=== PATIENT | male | born 1945 | race Caucasian/White ===

== ENCOUNTER 2020-03-29 10:18 | Outpatient (REF) | payer OTHER, SELFPAY ==
--- NOTE | 2020-03-29 11:22 | XR_ITS ---
EXAMINATION: XR KNEE LEFT XR KNEE RIGHT CLINICAL INFORMATION: Pain right knee. COMPARISON: None TECHNIQUE: Bilateral AP knees standing 1 view. 2 views each knee. FINDINGS: AP BILATERAL KNEE: There is a total right knee arthroplasty with prosthetic components in satisfactory alignment. There is severe loss of medial and [id number]-[id number] loss of lateral compartment joint space. There is genu valgum deformity left knee. No fracture seen. LEFT KNEE: There is severe loss of medial and patellofemoral compartment joint space and moderate lateral medial compartment joint space. There is moderate periarticular spurring patellofemoral compartment and mild anterior and posterior tibial plateau spurring. There are small loose bodies seen in this suprapatellar bursa with mild joint effusion. Multiple small loose bodies are seen along the infrapatellar joint effusion. RIGHT KNEE: There is a total right knee arthroplasty with prosthetic components in satisfactory alignment. There is moderate osteophytosis along the superior inferior patella. Small joint effusion and loose bodies seen. IMPRESSION: Severe degenerative arthritic changes medial and patellofemoral compartment left knee with multiple loose bodies in the suprapatellar and infrapatellar joint with mild joint effusion. Total right knee arthroplasty with prosthetic components in satisfactory alignment. There is degenerative patellar spurring and loose bodies. There is mild joint effusion. No visible acute fracture seen.
== END 2020-03-29 10:19 | disposition home or self-care (01) ==
LOC: HO.XRAY 10:18
PROVIDERS: PCP Internal Medicine; Referring Provider Internal Medicine; Visit Provider Orthopaedic Surgery
DX: M12.811 Other specific arthropathies, not elsewhere classified, right shoulder (principal); M17.12 Unilateral primary osteoarthritis, left knee; M25.561 Pain in right knee; Z96.651 Presence of right artificial knee joint; Z88.6 Allergy status to analgesic agent; Z88.2 Allergy status to sulfonamides; Z88.8 Allergy status to other drugs, medicaments and biological substances
CPT/HCPCS: 20610; 73560; 73565; J1100

== ENCOUNTER 2020-04-14 10:50 | Outpatient (REF) | payer OTHER, SELFPAY ==
[2020-04-14 11:52] LABS: MANUAL DIFF FLAG NO
[2020-04-14 11:54] LABS: Basophils Percent Auto 0.8 % (0-2); Eosinophils Absolute Auto 0.4 X10*3/uL (0.0-0.4); Hematocrit 39.4 % (42-52); Hemoglobin 13.1 g/dl (14.0-18.0); Imm Gran Abs Auto 0.02 X10*3/uL (0.00-0.03); Imm Gran Pct Auto 0.4 % (0.0-0.4); Lymphocytes Absolute Auto 0.8 X10*3/uL (1.2-4.9); Lymphocytes Percent Auto 16.1 % (20-40); Mean Corpuscular HGB Conc 33.2 g/dl (31.0-36.0); Mean Corpuscular Hemoglobin 30.2 pg (27.0-33.0); Mean Corpuscular Volume 90.8 fL (80-98); Mean Platelet Volume 9.8 fL (9.4-12.4); Monocytes Absolute Auto 0.6 X10*3/uL (0.1-1.2); Neutrophils Absolute Auto 3.2 X10*3/uL (2.0-8.3); Neutrophils Percent Auto 63.7 % (45-73); Platelet Count 267 X10*3/uL (160-400); Red Blood Count 4.34 X10*6/uL (4.60-5.80); Red Cell Distribution Width 11.9 % (11.0-16.0)
[2020-04-14 12:23] LABS: Alanine Aminotransferase 18 U/L (0-40); Albumin Level 3.8 g/dL (3.5-5.0); Alkaline Phosphatase 83 U/L (39-117); Anion Gap 10 (12-20); Aspartate Amino Transferase 21 U/L (5-37); Bilirubin Total 1.3 mg/dL (0.0-1.0); Blood Urea Nitrogen 11 mg/dL (9-16); Calcium 8.8 mg/dL (8.4-10.2); Carbon Dioxide 30 mmol/L (22-29); Chloride 104 mmol/L (96-108); Cholesterol 133 mg/dL; Estimated Glomerular Filt Rate > 60; Glucose Random 97 mg/dL (60-115); HDL Cholesterol 34 mg/dL; LDL Cholesterol Calculated 60 mg/dl; Potassium 4.6 mmol/l (3.3-5.1); Sodium 139 mmol/L (135-145); Total Protein 6.4 g/dL (6.5-8.0); Triglycerides 199 mg/dL
[2020-04-14 12:56] LABS: Vitamin B12 461 pg/mL (200-900)
== END 2020-04-14 10:51 | disposition home or self-care (01) ==
LOC: HO.LAB 10:50
PROVIDERS: PCP Internal Medicine; Visit Provider Internal Medicine
DX: E78.2 Mixed hyperlipidemia (principal); F51.01 Primary insomnia; R42 Dizziness and giddiness
CPT/HCPCS: 36415; 80053; 80061; 82607; 85025

== ENCOUNTER 2020-05-10 14:58 | Outpatient (REF) | payer MEDICARE, SELFPAY ==
--- NOTE | 2020-05-10 15:05 | XR_ITS ---
EXAMINATION: XR RIBS, RIGHT CLINICAL INFORMATION: Pleurodynia COMPARISON: None TECHNIQUE: 3 views of the right ribs and one view of the chest were obtained. FINDINGS: The cardiac silhouette does not appear enlarged. The thoracic aorta is slightly tortuous. Hilar and mediastinal contours are otherwise unremarkable. There is a 4 mm right pulmonary nodule. This is better seen on rib and chest x-ray. The lungs are otherwise clear. There is no pleural effusion or pneumothorax. There is a acute anterior 11th rib fracture. There are degenerative changes of the spine. XR/XR ribs RT min 3V w CXR1V IMPRESSION: Acute right anterior 11th rib fracture. 4 mm right pulmonary nodule better seen on rib x-rays.
== END 2020-05-10 14:59 | disposition home or self-care (01) ==
LOC: HO.HMGCX 14:58
PROVIDERS: PCP Internal Medicine; Visit Provider Hospitalist
DX: R07.81 Pleurodynia (principal)
CPT/HCPCS: 71101

== ENCOUNTER 2020-06-23 10:20 | Outpatient (REF) | payer OTHER, SELFPAY ==
[2020-06-23 12:19] LABS: MANUAL DIFF FLAG NO
[2020-06-23 12:26] LABS: Basophils Percent Auto 0.6 % (0-2); Eosinophils Absolute Auto 0.5 X10*3/uL (0.0-0.4); Eosinophils Percent Auto 8.5 % (0-4); Hematocrit 40.1 % (42-52); Hemoglobin 13.4 g/dl (14.0-18.0); Imm Gran Abs Auto 0.01 X10*3/uL (0.00-0.03); Imm Gran Pct Auto 0.2 % (0.0-0.4); Lymphocytes Absolute Auto 1.1 X10*3/uL (1.2-4.9); Lymphocytes Percent Auto 19.4 % (20-40); Mean Corpuscular HGB Conc 33.4 g/dl (31.0-36.0); Mean Corpuscular Hemoglobin 29.8 pg (27.0-33.0); Mean Corpuscular Volume 89.3 fL (80-98); Mean Platelet Volume 9.9 fL (9.4-12.4); Monocytes Absolute Auto 0.5 X10*3/uL (0.1-1.2); Monocytes Percent Auto 9.6 % (2-11); Neutrophils Absolute Auto 3.3 X10*3/uL (2.0-8.3); Neutrophils Percent Auto 61.7 % (45-73); Platelet Count 280 X10*3/uL (160-400); Red Blood Count 4.49 X10*6/uL (4.60-5.80); Red Cell Distribution Width 11.9 % (11.0-16.0); White Blood Count 5.4 X10*3/uL (4.8-10.8)
[2020-06-23 13:10] LABS: Alanine Aminotransferase 20 U/L (0-40); Albumin Level 4.1 g/dL (3.5-5.0); Alkaline Phosphatase 91 U/L (39-117); Anion Gap 13 (12-20); Aspartate Amino Transferase 20 U/L (5-37); Bilirubin Total 1.2 mg/dL (0.0-1.0); Blood Urea Nitrogen 14 mg/dL (9-16); Carbon Dioxide 30 mmol/L (22-29); Chloride 103 mmol/L (96-108); Cholesterol 123 mg/dL; Estimated Glomerular Filt Rate > 60; Glucose Fasting 96 mg/dL (60-99); HDL Cholesterol 38 mg/dL; LDL Cholesterol Calculated 57 mg/dl; Potassium 4.6 mmol/l (3.3-5.1); Sodium 141 mmol/L (135-145); Total Protein 6.7 g/dL (6.5-8.0); Triglycerides 141 mg/dL
[2020-06-23 13:30] LABS: Prostate Specific Antigen 0.59 ng/mL (<0.05-4.0); Vitamin D 25-OH Total 21.9 ng/mL (>30)
== END 2020-06-23 10:21 | disposition home or self-care (01) ==
LOC: HO.LAB 10:20
PROVIDERS: PCP Internal Medicine Medical Oncology; Visit Provider Internal Medicine Medical Oncology
DX: I10 Essential (primary) hypertension (principal); E66.3 Overweight; E78.5 Hyperlipidemia, unspecified; Z12.5 Encounter for screening for malignant neoplasm of prostate
CPT/HCPCS: 36415; 80053; 80061; 82306; 84153; 85025

== ENCOUNTER 2020-07-05 09:54 | Outpatient (REF) | payer OTHER, SELFPAY ==
--- NOTE | 2020-07-05 | US_ITS ---
EXAMINATION: US EXTRACRANIAL CAROTID DUPLEX, BILATERAL CLINICAL INFORMATION: Abnormal heart beat COMPARISON: None TECHNIQUE: Real-time ultrasound and Doppler techniques (integrating B-mode 2-D vascular images, Doppler spectral analysis and color-flow Doppler imaging) were utilized to interrogate the extracranial carotid arteries, the vertebral arteries and proximal subclavian arteries bilaterally. The degree of stenosis is determined by criteria similar to NASCET. FINDINGS: Right Side: 1. There is minimal hypoechoic atherosclerotic plaque seen in the bifurcation/proximal ICA region. 2. The common carotid artery PSV proximally is 108 cm/s and distally 69.2 cm/s. 3. The proximal internal carotid artery velocities are 122 cm/s systolic and 29.1 cm/s diastolic. 4. The proximal external carotid artery PSV is 89.1 cm/s. 5. The vertebral artery shows antegrade flow. 6. The subclavian artery waveforms are normal. Left Side: 1. There is minimal hypoechoic atherosclerotic plaque seen in the bifurcation/proximal ICA region. 2. The common carotid artery PSV proximally is 109 cm/s and distally 78 cm/s. 3. The proximal internal carotid artery velocities are 56.2 cm/s systolic and 20.8 cm/s diastolic. 4. The proximal external carotid artery PSV is 65.2 cm/s. 5. The vertebral artery shows antegrade flow. 6. The subclavian artery waveforms are normal. US/US carotid duplex BI IMPRESSION: 1. RIGHT: Minimal, non-hemodynamically significant stenosis of the proximal right internal carotid artery corresponding to a 0-49% stenosis by velocity criteria. 2. LEFT: Minimal, non-hemodynamically significant stenosis of the proximal left internal carotid artery corresponding to a 0-49% stenosis by velocity criteria.
[2020-07-05 12:38] LABS: Prostate Specific Antigen 0.56 ng/mL (<0.05-4.0)
== END 2020-07-05 09:55 | disposition home or self-care (01) ==
LOC: HO.US 09:54
PROVIDERS: PCP Urology; Visit Provider Internal Medicine Medical Oncology
DX: Z12.5 Encounter for screening for malignant neoplasm of prostate (principal); N40.0 Benign prostatic hyperplasia without lower urinary tract symptoms
CPT/HCPCS: 36415; 84153; 93880

== ENCOUNTER → 2020-07-14 11:44 | Outpatient (BNVA) | payer OTHER, SELFPAY | PROVIDERS: Visit Provider Urology ==

== ENCOUNTER → 2020-08-02 11:10 | Outpatient (BNVA) | payer OTHER, SELFPAY | PROVIDERS: Visit Provider Orthopaedic Surgery | DX: M12.811 Other specific arthropathies, not elsewhere classified, right shoulder (principal); M12.812 Other specific arthropathies, not elsewhere classified, left shoulder | CPT/HCPCS: 99212 ==

== ENCOUNTER 2020-08-09 13:03 | Outpatient (REF) | payer MEDICARE, SELFPAY | END 2020-08-09 13:04 | disposition home or self-care (01) | LOC: HO.HMGCLDS 13:03 | PROVIDERS: PCP Internal Medicine Medical Oncology; Visit Provider Internal Medicine | DX: Z20.822 Contact with and (suspected) exposure to COVID-19 (principal) | CPT/HCPCS: 36415; C9803; U0003; U0005 ==

== ENCOUNTER 2020-09-22 13:24 | Emergency (ER) | payer MEDICARE, SELFPAY ==
[2020-09-22 15:00] VITALS: BP 186/86; PULSE 58; RESP 16; TEMP 36.6; O2SAT 98; BMI 24.4
[2020-09-22 15:10] VITALS: BMI 22.7
--- NOTE | 2020-09-22 16:17 | ED_ITS ---
HPI - Animal Bite General Chief Complaint: Animal Bite Stated Complaint: MOUSE BITE Time Seen by Provider: 09/22/20 15:57 Source: patient Mode of arrival: ambulatory Limitations: no limitations History of Present Illness HPI narrative: 75-year-old male presenting to the ED with complaints of a rat bite to his right thumb prior to arrival. Reports he is unsure if he is up-to-date on his tetanus. Denies any other symptoms complaints or concerns at this time. MD complaint: animal bite Onset (ago): minute(s) (Prior to arrival) Animal: rodent Mechanism: bite Location: other (Right thumb) Pain description: dull Associated symptoms: none Treatments prior to arrival: irrigation Related Data Patient tetanus UTD: No Home Medications Medication Instructions Recorded Confirmed atorvastatin 40 mg tablet 40 mg PO DAILY 05/10/20 05/10/20 metoprolol succinate 25 mg 25 mg PO DAILY 05/10/20 05/10/20 tablet,extended release 24 hr omeprazole 20 mg capsule,delayed 20 mg PO DAILY 05/10/20 05/10/20 release Previous Rx's Medication Instructions Recorded trimethoprim 100 mg tablet 100 mg PO DAILY 90 Days #90 tab 06/23/20 finasteride 5 mg tablet 5 mg PO DAILY 90 Days #90 tab 07/14/20 amoxicillin-pot clavulanate 1 tab PO BID 10 Days #20 tab 09/22/20 [Augmentin] Allergies Allergy/AdvReac Type Severity Reaction Status Date / Time indomethacin [From INDOCIN] Allergy Intermediate RASH Verified 08/02/20 11:12 Sulfa (Sulfonamide Allergy Intermediate BLISTERS, Verified 08/02/20 11:12 Antibiotics) sore on [SULFA (SULFONAMIDE the end of ANTIBIOTICS)] his penis acetaminophen [Percocet] Allergy Unknown vomiting Verified 08/02/20 11:12 oxycodone [OXYCODONE] AdvReac Intermediate VOMITING/RA Verified 08/02/20 11:12 SH Review of Systems Review of Systems: Constitutional : No Fever, No Chills, Cardiovascular : No Chest Pain, No SOB Respiratory : No Dyspnea Gastrointestinal : No abdominal pain Musculoskeletal : No Joint Swelling Skin : positive skin bite, No lacerations, No Foreign bodies, No rash, No surrounding erythema Neuro : No Weakness, No Numbness/tingling Psych : No SI/HI/thoughts of self injury Yes all other systems are reviewed and are negative PMFSH Past Medical History Attestation statement: The following information was validated with the patient. Medical History Bilateral knee pain Osteoarthritis of left knee Rotator cuff arthropathy of both shoulders Surgical History Status post right knee replacement Social History Social History Alcohol intake: never Smoking Status: Never smoker Smoked in Last 30 Days: No Use of substances other than those prescribed or required for medical reasons: No Advance Directives: No Advance Directives Information Provided: Yes Current occupation: [employer] - right handed Physical Exam Vital Signs: Vital Signs: Last Vital Signs Temp 98 F 09/22/20 15:00 Pulse 58 09/22/20 15:00 Resp 16 09/22/20 15:00 BP 186/86 H 09/22/20 15:00 Pulse Ox 98 09/22/20 15:00 Body Mass Index 22.7 vital signs have been reviewed as normal and appeared to be correct. Blood pressure normal. Heart rate normal. Respiration rate normal. Temperature normal. Oxygen saturation normal. Appearance: Alert. Oriented X3. No acute distress. Head: Normal external exam. Normocephalic. Atraumatic. Eyes: PERRLA. EOMI. Conjunctiva and sclera normal. Eyelids normal. ENT: Pharynx normal. Uvula midline. Moist mucous membranes. Neck: Normal inspection. Neck supple. FROM. No adenopathy. Thyroid Normal. No meningeal signs. No neck mass noted. CVS: Normal heart rate and rhythm. Heart sound normal. Pulses normal throughout. Respiratory: No respiratory distress. Painless inspiration. Back: No CVA tenderness. Full range of motion noted. Skin: Skin warm and dry. Normal skin color. Normal skin turgor. No rashes/lesions/lacerations noted. Extremities: To right thumb patient has 2 puncture wounds consistent with a bite. With mild surrounding erythema. No streaking/induration/foreign bodies noted. Extremities exhibit normal range of motion. Extremities nontender. Neuro: Oriented X 3. No motor deficit. No sensory deficit. Reflexes normal. Course Course Course Narrative: Patient status post rat bite prior to arrival. Will update the patient's tetanus. We will place the patient on antibiotics and instructions return if any new or worsening symptoms to follow up with primary care provider. Patient understands agrees the plan. MDM - Animal Bite Medical Records Attestation: I reviewed the patient's medical records. Discharge Plan Discharge Clinical Impression: Bite by animal Patient Disposition: Home, Self-Care Instructions: Animal Bite (ED) Prescriptions: New amoxicillin-pot clavulanate [Augmentin] 875-125 mg tablet 1 tab PO BID 10 Days Qty: 20 RF: 0 No Action trimethoprim 100 mg tablet 100 mg PO DAILY 90 Days Qty: 90 RF: 2 omeprazole 20 mg capsule,delayed release(DR/EC) 20 mg PO DAILY RF: 0 metoprolol succinate 25 mg tablet extended release 24 hr 25 mg PO DAILY RF: 0 atorvastatin 40 mg tablet 40 mg PO DAILY RF: 0 finasteride 5 mg tablet 5 mg PO DAILY 90 Days Qty: 90 RF: 3 Referrals: Chris Walker MD [Primary Care Provider] - 2 days Print Language: Ecuadorean
[2020-09-22] MEDS: Diphth,Pertus(ACell),Tet Adult 0.5 ML SYRINGE IM (16:29)
[2020-09-22] MEDS: Amoxicillin/Potassium Clav 875 MG TABLET PO (16:29)
== END 2020-09-22 16:35 | disposition home or self-care (01) ==
PROVIDERS: Emergency Provider Emergency Medicine Emergency Medical Services; PCP Internal Medicine Medical Oncology
DX: S61.051A Open bite of right thumb without damage to nail, initial encounter (principal); W53.11XA Bitten by rat, initial encounter; Y93.9 Activity, unspecified; Y92.019 Unspecified place in single-family (private) house as the place of occurrence of the external cause; Y99.9 Unspecified external cause status
CPT/HCPCS: 90471; 90715; 99284

== ENCOUNTER 2020-09-22 18:12 | Emergency (ER) | payer MEDICARE, SELFPAY ==
--- NOTE | ~2020-09-22 | CT_ITS ---
EXAMINATION: CT HEAD WITHOUT CONTRAST CLINICAL INFORMATION: Fall. COMPARISON: None TECHNIQUE: Contiguous axial imaging was performed from the skull base to vertex without intravenous administration of contrast. This CT examination was performed using dose optimization techniques as appropriate, variously including the following: *Automated exposure control *Adjustment of mA and/or kV according to patient size (this includes techniques or standardized protocols for targeted exams where dose is matched to indication/reason for exam; i.e. extremities or head) *Use of iterative reconstruction technique DLP: 860 mGy-cm FINDINGS: There is no evidence of acute intracranial hemorrhage or territorial infarction. There are small lacunar infarct right basal ganglia No abnormal mass effect or midline shift is seen. Wetzel to white matter differentiation is well preserved. No extra-axial fluid collections are identified. The lateral ventricles are symmetrical in size but enlarged. There is mild periarticular hypodensity in both cerebral hemispheres without mass effect suggestive of chronic small vessel ischemic changes. There is a right frontal scalp hematoma with soft tissue swelling and small radiopaque foreign body. There is no underlying calvarial fracture seen. There is mucoperiosteal thickening involving bilateral frontal and ethmoid sinuses. CT/CT head/brain wo con IMPRESSION: No acute intracranial process seen. 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 Age-related cerebral volume loss with chronic small vessel ischemic changes. Right frontal scalp hematoma with soft tissue swelling and small radiopaque foreign bodies. Likely laceration. No calvarial fracture seen. Chronic bilateral ethmoid and frontal sinus inflammatory changes
[2020-09-22 18:49] VITALS: BP 191/88; PULSE 62; RESP 16; TEMP 36.6; O2SAT 97; BMI 22.6
--- NOTE | 2020-09-22 21:45 | ED_ITS ---
HPI - Head Injury General Chief complaint: Head Injury Stated complaint: head inj Time Seen by Provider: 09/22/20 21:44 Source: patient Mode of arrival: ambulatory Limitations: no limitations History of Present Illness HPI Narrative: 75 yo male using a wrench it appears it kickedbacked somewhat and he hit the floor with forehead, no AC therapy, no LOC MD Complaint: head injury and head pain Onset (ago): minute(s) Mechanism of Injury: fall Place: home Loss of Consciousness: no Location of injury: frontal Severity: moderate Quality: burning Radiation: none Other Injuries: laceration Associated symptoms: denies other symptoms Related Data Home Medications Medication Instructions Recorded Confirmed atorvastatin 40 mg tablet 40 mg PO DAILY 05/10/20 05/10/20 metoprolol succinate 25 mg 25 mg PO DAILY 05/10/20 05/10/20 tablet,extended release 24 hr omeprazole 20 mg capsule,delayed 20 mg PO DAILY 05/10/20 05/10/20 release Previous Rx's Medication Instructions Recorded trimethoprim 100 mg tablet 100 mg PO DAILY 90 Days #90 tab 06/23/20 finasteride 5 mg tablet 5 mg PO DAILY 90 Days #90 tab 07/14/20 amoxicillin-pot clavulanate 1 tab PO BID 10 Days #20 tab 09/22/20 [Augmentin] Allergies Allergy/AdvReac Type Severity Reaction Status Date / Time indomethacin [From INDOCIN] Allergy Intermediate RASH Verified 08/02/20 11:12 Sulfa (Sulfonamide Allergy Intermediate BLISTERS, Verified 08/02/20 11:12 Antibiotics) sore on [SULFA (SULFONAMIDE the end of ANTIBIOTICS)] his penis acetaminophen [Percocet] Allergy Unknown vomiting Verified 08/02/20 11:12 oxycodone [OXYCODONE] AdvReac Intermediate VOMITING/RA Verified 08/02/20 11:12 Review of Systems Review of Systems: Constitutional : No Fever, No Chills ENT/Mouth : No Ear Pain, No Hoarseness, No sore throat Eyes: No Eye Pain, No Swelling, No Redness, No Foreign Body Cardiovascular : No Chest Pain, No SOB Respiratory : No Cough, No Dyspnea Gastrointestinal : No Nausea, No Vomiting, No Diarrhea, No abdominal Pain Genitourinary : No Dysuria, No Hematuria Musculoskeletal : no joint pain, No Myalgias, No Joint Swelling Skin : pos Skin lacerations, No rash Neuro : No Weakness, No Numbness, No Loss of Consciousness, No Dizziness, pos Headache Psych : No Anxiety/Panic, No Depression Heme/Lymph: no easy bruising, no Lymphadenopathy Endocrine : No Polyuria, No Polydipsia All other systems reviewed and are negative [facility] Past Medical History Attestation statement: The following information was validated with the patient. Medical History Bilateral knee pain Osteoarthritis of left knee Rotator cuff arthropathy of both shoulders Surgical History Status post right knee replacement Social History Social History Alcohol intake: never Smoking Status: Never smoker Advance Directives: No Advance Directives Information Provided: No Current occupation: [employer] - right handed Physical Exam Vital Signs: Vital Signs: Last Vital Signs Temp 98 F 09/22/20 18:49 Pulse 62 09/22/20 18:49 Resp 16 09/22/20 18:49 BP 191/88 H 09/22/20 18:49 Pulse Ox 97 09/22/20 18:49 Body Mass Index 22.6 Appearance: Alert. Oriented X3. No acute distress. Eyes: Pupils equal, round and reactive to light. ENT: Pharynx normal. Jagged laceration 6cm central forehead down to subQ with abrasions and tissue loss Neck: Normal inspection. Neck supple. CVS: Normal heart rate and rhythm. Pulses normal. Respiratory: No respiratory distress. Breath sounds normal. Abdomen: Soft and nontender. Skin: Skin warm and dry. Normal skin color. Normal skin turgor. Extremities: No lower extremity edema. No calf ttp Neuro: Oriented X 3. No motor deficit. No sensory deficit. Procedures Laceration Laceration 1: Site: face Size (cm): 6 Description: irregular, clean and other (jagged with abrasions and tissue loss) Depth: simple, single layer Local Anesthetic: lidocaine 1% Amount of anesthesia used (mL): 5 Pre-repair: wound explored and irrigated extensively Skin layer closed with: other (prolene) Size (cm): 6-0 Number of sutures: 7 Technique: simple, interrupted MDM - Head Injury MDM Narrative Medical decision making narrative: 75 yo male with mechanical fall now with laceration - will need wound repair and CT head for trauma, no other injuries noted. Discharge Plan Discharge Clinical Impression: Closed head injury, Laceration Patient Disposition: Home, Self-Care Instructions: Head Laceration (ED), Head Injury (ED) Additional Instructions: return to ED for any worsening symptoms or concerns it is okay to shower, SUTURES OUT IN 7 DAYS APPLY BACITRACIN DAILY AFTER WOUND HEALS TO PREVENT SCARRING APPLY SUNSCREEN Prescriptions: No Action trimethoprim 100 mg tablet 100 mg PO DAILY 90 Days Qty: 90 RF: 2 amoxicillin-pot clavulanate [Augmentin] 875-125 mg tablet 1 tab PO BID 10 Days Qty: 20 RF: 0 omeprazole 20 mg capsule,delayed release(DR/EC) 20 mg PO DAILY RF: 0 metoprolol succinate 25 mg tablet extended release 24 hr 25 mg PO DAILY RF: 0 atorvastatin 40 mg tablet 40 mg PO DAILY RF: 0 finasteride 5 mg tablet 5 mg PO DAILY 90 Days Qty: 90 RF: 3 Referrals: Chris Walker MD [Primary Care Provider] - 1 week
[2020-09-22] MEDS: Lidocaine HCl 1 % MPF 5 ML VIAL SUBCUT (22:36)
--- NOTE | 2020-09-22 22:37 | PC.NURSE ---
PT MOVED TO 8 FOR WOUND CLOSURE. TOLERATED PROCEDURE WELL. AWAITING CT RESULTS. AWARE OF PLAN OF CARE.
[2020-09-22] MEDS: Acetaminophen 325 MG TABLET 650 MG PO (22:56)
== END 2020-09-22 23:21 | disposition home or self-care (01) ==
PROVIDERS: Emergency Provider Emergency Medicine; PCP Internal Medicine Medical Oncology
DX: S01.81XA Laceration without foreign body of other part of head, initial encounter (principal); W18.39XA Other fall on same level, initial encounter; Y93.9 Activity, unspecified; Y92.015 Private garage of single-family (private) house as the place of occurrence of the external cause; Y99.9 Unspecified external cause status
CPT/HCPCS: 12013; 70450; 99283; 99284

== ENCOUNTER 2020-10-11 10:13 | Outpatient (REF) | payer MEDICARE, SELFPAY ==
[2020-10-11 11:32] LABS: MANUAL DIFF FLAG NO
[2020-10-11 11:40] LABS: Basophils Percent Auto 0.7 % (0-2); Eosinophils Absolute Auto 0.4 X10*3/uL (0.0-0.4); Eosinophils Percent Auto 9.7 % (0-4); Hematocrit 39.7 % (42-52); Hemoglobin 12.8 g/dl (14.0-18.0); Imm Gran Abs Auto 0.01 X10*3/uL (0.00-0.03); Imm Gran Pct Auto 0.2 % (0.0-0.4); Lymphocytes Percent Auto 21.6 % (20-40); Mean Corpuscular HGB Conc 32.2 g/dl (31.0-36.0); Mean Corpuscular Hemoglobin 29.1 pg (27.0-33.0); Mean Corpuscular Volume 90.2 fL (80-98); Mean Platelet Volume 9.5 fL (9.4-12.4); Monocytes Absolute Auto 0.5 X10*3/uL (0.1-1.2); Monocytes Percent Auto 10.1 % (2-11); Neutrophils Absolute Auto 2.6 X10*3/uL (2.0-8.3); Neutrophils Percent Auto 57.7 % (45-73); Platelet Count 277 X10*3/uL (160-400); Red Cell Distribution Width 11.9 % (11.0-16.0); White Blood Count 4.5 X10*3/uL (4.8-10.8)
[2020-10-11 12:28] LABS: Free T4 (Free Thyroxine) 0.97 ng/dL (0.71-1.85); Thyroid Stimulating Hormone 1.04 uIU/mL (0.32-4.0)
[2020-10-11 14:01] LABS: Erythrocyte Sedimentation Rate 8 MM/HR (0-15)
== END 2020-10-11 10:14 | disposition home or self-care (01) ==
LOC: HO.LAB 10:13
PROVIDERS: PCP Internal Medicine Medical Oncology; Visit Provider Internal Medicine Medical Oncology
DX: I10 Essential (primary) hypertension (principal); E78.5 Hyperlipidemia, unspecified; E66.3 Overweight
CPT/HCPCS: 36415; 84134; 84439; 84443; 85025; 85652

== ENCOUNTER 2021-01-18 11:02 | Outpatient (REF) | payer MEDICARE, SELFPAY ==
[2021-01-18 11:48] LABS: MANUAL DIFF FLAG NO
[2021-01-18 11:52] LABS: Basophils Percent Auto 0.6 % (0-2); Eosinophils Absolute Auto 0.5 X10*3/uL (0.0-0.4); Eosinophils Percent Auto 10.6 % (0-4); Hematocrit 38.2 % (42-52); Hemoglobin 12.5 g/dl (14.0-18.0); Imm Gran Abs Auto 0.01 X10*3/uL (0.00-0.03); Imm Gran Pct Auto 0.2 % (0.0-0.4); Lymphocytes Absolute Auto 0.9 X10*3/uL (1.2-4.9); Lymphocytes Percent Auto 19.4 % (20-40); Mean Corpuscular HGB Conc 32.7 g/dl (31.0-36.0); Mean Corpuscular Hemoglobin 29.8 pg (27.0-33.0); Mean Platelet Volume 9.6 fL (9.4-12.4); Monocytes Absolute Auto 0.4 X10*3/uL (0.1-1.2); Monocytes Percent Auto 9.2 % (2-11); Neutrophils Absolute Auto 2.9 X10*3/uL (2.0-8.3); Platelet Count 230 X10*3/uL (160-400); Red Cell Distribution Width 12.2 % (11.0-16.0); White Blood Count 4.8 X10*3/uL (4.8-10.8)
[2021-01-18 12:30] LABS: Prostate Specific Antigen 0.58 ng/mL (<0.05-4.0)
[2021-01-18 12:41] LABS: Alanine Aminotransferase 19 U/L (0-40); Albumin Level 3.7 g/dL (3.5-5.0); Alkaline Phosphatase 76 U/L (39-117); Anion Gap 9 (12-20); Aspartate Amino Transferase 18 U/L (5-37); Bilirubin Total 0.4 mg/dL (0.0-1.0); Blood Urea Nitrogen 15 mg/dL (9-16); Calcium 9.1 mg/dL (8.4-10.2); Carbon Dioxide 29 mmol/L (22-29); Chloride 106 mmol/L (96-108); Cholesterol 191 mg/dL; Estimated Glomerular Filt Rate > 60; Glucose Fasting 96 mg/dL (60-99); HDL Cholesterol 36 mg/dL; LDL Cholesterol Calculated 97 mg/dl; Potassium 4.4 mmol/L (3.3-5.1); Sodium 140 mmol/L (135-145); Total Protein 6.4 g/dL (6.5-8.0); Triglycerides 294 mg/dL
== END 2021-01-18 11:03 | disposition home or self-care (01) ==
LOC: HO.LAB 11:02
PROVIDERS: PCP Internal Medicine Medical Oncology; Visit Provider Internal Medicine Medical Oncology
DX: Z12.5 Encounter for screening for malignant neoplasm of prostate (principal); E78.5 Hyperlipidemia, unspecified; I10 Essential (primary) hypertension; N40.1 Benign prostatic hyperplasia with lower urinary tract symptoms
CPT/HCPCS: 36415; 80053; 80061; 84153; 85025

== ENCOUNTER 2021-04-13 09:39 | Outpatient (REF) | payer MEDICARE, SELFPAY ==
[2021-04-13 09:49] LABS: MANUAL DIFF FLAG NO
[2021-04-13 10:07] LABS: Basophils Percent Auto 0.6 % (0-2); Eosinophils Absolute Auto 0.5 X10*3/uL (0.0-0.4); Eosinophils Percent Auto 8.9 % (0-4); Hematocrit 38.3 % (42.0-52.0); Hemoglobin 12.8 g/dl (14.0-18.0); Imm Gran Abs Auto 0.01 X10*3/uL (0.00-0.03); Imm Gran Pct Auto 0.2 % (0.0-0.4); Lymphocytes Percent Auto 18.5 % (20-40); Mean Corpuscular HGB Conc 33.4 g/dl (31.0-36.0); Mean Corpuscular Hemoglobin 29.8 pg (27.0-33.0); Mean Corpuscular Volume 89.1 fL (80.0-98.0); Mean Platelet Volume 9.5 fL (9.4-12.4); Monocytes Absolute Auto 0.5 X10*3/uL (0.1-1.2); Neutrophils Absolute Auto 3.21 x10*3/uL (2.0-8.3); Neutrophils Percent Auto 61.8 % (45-73); Platelet Count 242 X10*3/uL (160-400); Red Cell Distribution Width 11.9 % (11.0-16.0); White Blood Count 5.2 X10*3/uL (4.8-10.8)
[2021-04-13 11:08] LABS: Alanine Aminotransferase 12 U/L (0-40); Albumin Level 3.9 g/dL (3.5-5.0); Alkaline Phosphatase 66 U/L (39-117); Anion Gap 9 (12-20); Aspartate Amino Transferase 20 U/L (5-37); Bilirubin Total 1.1 mg/dL (0.0-1.0); Blood Urea Nitrogen 13 mg/dL (9-16); Calcium 8.8 mg/dL (8.4-10.2); Carbon Dioxide 28 mmol/L (22-29); Chloride 105 mmol/L (96-108); Cholesterol 203 mg/dL; Estimated Glomerular Filt Rate > 60; Glucose Fasting 103 mg/dL (60-99); HDL Cholesterol 34 mg/dL; LDL Cholesterol Calculated 108 mg/dl; Potassium 4.2 mmol/L (3.3-5.1); Prostate Specific Antigen 0.65 ng/mL (<0.05-4.0); Sodium 138 mmol/L (135-145); Total Protein 6.6 g/dL (6.5-8.0); Triglycerides 309 mg/dL
== END 2021-04-13 09:40 | disposition home or self-care (01) ==
LOC: HO.LAB 09:39
PROVIDERS: PCP Internal Medicine Medical Oncology; Visit Provider Internal Medicine Medical Oncology
DX: I10 Essential (primary) hypertension (principal); E78.5 Hyperlipidemia, unspecified; N40.1 Benign prostatic hyperplasia with lower urinary tract symptoms; Z12.5 Encounter for screening for malignant neoplasm of prostate
CPT/HCPCS: 36415; 80053; 80061; 84153; 85025

== ENCOUNTER 2021-07-26 10:54 | Outpatient (REF) | payer MEDICARE, SELFPAY ==
[2021-07-26 11:16] LABS: MANUAL DIFF FLAG NO
[2021-07-26 11:43] LABS: Basophils Percent Auto 0.6 % (0-2); Eosinophils Absolute Auto 0.3 X10*3/uL (0.0-0.4); Eosinophils Percent Auto 6.7 % (0-4); Hemoglobin 13.5 g/dl (14.0-18.0); Imm Gran Abs Auto 0.01 X10*3/uL (0.00-0.03); Imm Gran Pct Auto 0.2 % (0.0-0.4); Lymphocytes Absolute Auto 0.9 X10*3/uL (1.2-4.9); Lymphocytes Percent Auto 17.7 % (20-40); Mean Corpuscular HGB Conc 32.9 g/dl (31.0-36.0); Mean Corpuscular Hemoglobin 29.5 pg (27.0-33.0); Mean Corpuscular Volume 89.5 fL (80.0-98.0); Mean Platelet Volume 9.4 fL (9.4-12.4); Monocytes Absolute Auto 0.4 X10*3/uL (0.1-1.2); Monocytes Percent Auto 8.5 % (2-11); Neutrophils Absolute Auto 3.3 x10*3/uL (2.0-8.3); Neutrophils Percent Auto 66.3 % (45-73); Platelet Count 264 X10*3/uL (160-400); Red Blood Count 4.58 X10*6/uL (4.60-5.80); Red Cell Distribution Width 11.5 % (11.0-16.0)
[2021-07-26 12:22] LABS: Alanine Aminotransferase 16 U/L (0-40); Albumin Level 3.9 g/dL (3.5-5.0); Alkaline Phosphatase 77 U/L (39-117); Anion Gap 10 (12-20); Aspartate Amino Transferase 21 U/L (5-37); Bilirubin Total 0.4 mg/dL (0.0-1.0); Blood Urea Nitrogen 17 mg/dL (9-16); Calcium 9.4 mg/dL (8.4-10.2); Carbon Dioxide 28 mmol/L (22-29); Chloride 103 mmol/L (96-108); Cholesterol 241 mg/dL; Estimated Glomerular Filt Rate > 60; Glucose Fasting 100 mg/dL (60-99); HDL Cholesterol 33 mg/dL; Sodium 136 mmol/L (135-145); Triglycerides 520 mg/dL
== END 2021-07-26 10:55 | disposition home or self-care (01) ==
LOC: HO.LAB 10:54
PROVIDERS: PCP Internal Medicine Medical Oncology; Visit Provider Internal Medicine Medical Oncology
DX: I10 Essential (primary) hypertension (principal); N40.1 Benign prostatic hyperplasia with lower urinary tract symptoms; E78.5 Hyperlipidemia, unspecified
CPT/HCPCS: 36415; 80053; 80061; 85025

== ENCOUNTER 2021-10-17 08:57 | Outpatient (REF) | payer MEDICARE, SELFPAY ==
[2021-10-17 09:25] LABS: MANUAL DIFF FLAG NO
[2021-10-17 09:42] LABS: Basophils Absolute Auto 0.1 X10*3/uL (0.0-0.2); Eosinophils Absolute Auto 0.4 X10*3/uL (0.0-0.4); Eosinophils Percent Auto 7.7 % (0-4); Hematocrit 37.4 % (42.0-52.0); Hemoglobin 12.4 g/dl (14.0-18.0); Imm Gran Abs Auto 0.01 X10*3/uL (0.00-0.03); Imm Gran Pct Auto 0.2 % (0.0-0.4); Lymphocytes Absolute Auto 0.8 X10*3/uL (1.2-4.9); Lymphocytes Percent Auto 15.6 % (20-40); Mean Corpuscular HGB Conc 33.2 g/dl (31.0-36.0); Mean Corpuscular Volume 90.3 fL (80.0-98.0); Mean Platelet Volume 9.2 fL (9.4-12.4); Monocytes Absolute Auto 0.5 X10*3/uL (0.1-1.2); Monocytes Percent Auto 10.5 % (2-11); Neutrophils Absolute Auto 3.3 x10*3/uL (2.0-8.3); Platelet Count 247 X10*3/uL (160-400); Red Blood Count 4.14 X10*6/uL (4.60-5.80); Red Cell Distribution Width 12.2 % (11.0-16.0); White Blood Count 5.1 X10*3/uL (4.8-10.8)
[2021-10-17 10:02] LABS: Alanine Aminotransferase 16 U/L (0-40); Albumin Level 3.5 g/dL (3.5-5.0); Alkaline Phosphatase 90 U/L (39-117); Anion Gap 12 (12-20); Aspartate Amino Transferase 19 U/L (5-37); Bilirubin Total 0.6 mg/dL (0.0-1.0); Blood Urea Nitrogen 9 mg/dL (9-16); Carbon Dioxide 26 mmol/L (22-29); Chloride 108 mmol/L (96-108); Cholesterol 124 mg/dL; Estimated Glomerular Filt Rate > 60; Glucose Fasting 92 mg/dL (60-99); HDL Cholesterol 40 mg/dL; LDL Cholesterol Calculated 65 mg/dl; Potassium 4.1 mmol/L (3.3-5.1); Sodium 142 mmol/L (135-145); Total Protein 6.4 g/dL (6.5-8.0); Triglycerides 99 mg/dL
[2021-10-17 10:22] LABS: Prostate Specific Antigen 1.06 ng/mL (<0.05-4.0)
== END 2021-10-17 08:58 | disposition home or self-care (01) ==
LOC: HO.LAB 08:57
PROVIDERS: PCP Internal Medicine Medical Oncology; Visit Provider Internal Medicine Medical Oncology
DX: Z12.5 Encounter for screening for malignant neoplasm of prostate (principal); I10 Essential (primary) hypertension; E78.5 Hyperlipidemia, unspecified; N40.1 Benign prostatic hyperplasia with lower urinary tract symptoms; R35.1 Nocturia
CPT/HCPCS: 36415; 80053; 80061; 84153; 85025

== ENCOUNTER → 2022-01-19 11:36 | Outpatient (BNVA) | payer MEDICARE, SELFPAY | PROVIDERS: PCP Internal Medicine Medical Oncology; Visit Provider Urology | DX: N40.1 Benign prostatic hyperplasia with lower urinary tract symptoms (principal); N13.8 Other obstructive and reflux uropathy | CPT/HCPCS: 51798; 99212 ==

== ENCOUNTER 2022-02-22 09:56 | Outpatient (REF) | payer MEDICARE, SELFPAY ==
[2022-02-22 10:30] LABS: MANUAL DIFF FLAG NO
[2022-02-22 11:29] LABS: Basophils Percent Auto 0.6 % (0-2); Eosinophils Absolute Auto 0.4 X10*3/uL (0.0-0.4); Eosinophils Percent Auto 7.9 % (0-4); Hematocrit 39.6 % (42.0-52.0); Hemoglobin 12.8 g/dl (14.0-18.0); Imm Gran Abs Auto 0.01 X10*3/uL (0.00-0.03); Imm Gran Pct Auto 0.2 % (0.0-0.4); Lymphocytes Percent Auto 20.2 % (20-40); Mean Corpuscular HGB Conc 32.3 g/dl (31.0-36.0); Mean Corpuscular Hemoglobin 29.4 pg (27.0-33.0); Mean Corpuscular Volume 90.8 fL (80.0-98.0); Mean Platelet Volume 9.9 fL (9.4-12.4); Monocytes Absolute Auto 0.6 X10*3/uL (0.1-1.2); Monocytes Percent Auto 11.1 % (2-11); Platelet Count 339 X10*3/uL (160-400); Red Blood Count 4.36 X10*6/uL (4.60-5.80); Red Cell Distribution Width 12.1 % (11.0-16.0); White Blood Count 5.1 X10*3/uL (4.8-10.8)
[2022-02-22 12:15] LABS: Alanine Aminotransferase 13 U/L (0-40); Albumin Level 3.8 g/dL (3.5-5.0); Alkaline Phosphatase 104 U/L (39-117); Anion Gap 15 (12-20); Aspartate Amino Transferase 14 U/L (5-37); Bilirubin Total 0.8 mg/dL (0.0-1.0); Blood Urea Nitrogen 16 mg/dL (9-16); Calcium 9.3 mg/dL (8.4-10.2); Carbon Dioxide 26 mmol/L (22-29); Chloride 105 mmol/L (96-108); Cholesterol 111 mg/dL; Estimated Glomerular Filt Rate > 60; Glucose Fasting 99 mg/dL (60-99); HDL Cholesterol 33 mg/dL; LDL Cholesterol Calculated 60 mg/dl; Potassium 4.7 mmol/L (3.3-5.1); Sodium 141 mmol/L (135-145); Total Protein 6.8 g/dL (6.5-8.0); Triglycerides 90 mg/dL
[2022-02-22 12:23] LABS: Prostate Specific Antigen 1.75 ng/mL (<0.05-4.0)
== END 2022-02-22 09:57 | disposition home or self-care (01) ==
LOC: HO.LAB 09:56
PROVIDERS: PCP Internal Medicine Medical Oncology; Visit Provider Internal Medicine Medical Oncology
DX: Z12.5 Encounter for screening for malignant neoplasm of prostate (principal); N40.1 Benign prostatic hyperplasia with lower urinary tract symptoms; E78.5 Hyperlipidemia, unspecified; E66.3 Overweight
CPT/HCPCS: 36415; 80053; 80061; 84153; 85025

== ENCOUNTER 2022-02-22 11:56 | Inpatient (IN) | payer MEDICARE, SELFPAY ==
--- NOTE | ~2022-02-22 | CT_ITS ---
EXAMINATION: CT ANGIOGRAM OF THE CHEST WITH AND WITHOUT CONTRAST (CT PULMONARY ANGIOGRAM FOR PE) CLINICAL INFORMATION: Reason for Exam positive DDimer - 371 COMPARISON: 05/10/2020 radiograph TECHNIQUE: Prior to contrast administration, noncontrast localization images were obtained. Subsequently, multidetector volumetric imaging was performed from the thoracic inlet to below the diaphragms following the administration of 65 mL Omnipaque 350 intravenous contrast. No contrast reaction reported Sagittal, coronal, and MIP oblique sagittal reformatted images were obtained on the CT workstation, uploaded to PACS, and reviewed. This CT examination was performed using dose optimization techniques as appropriate, variously including the following: *Automated exposure control *Adjustment of mA and/or kV according to patient size (this includes techniques or standardized protocols for targeted exams where dose is matched to indication/reason for exam; i.e. extremities or head) *Use of iterative reconstruction technique Total exam dose-length product 301 mGy-cm FINDINGS: QUALITY OF STUDY/CONTRAST BOLUS: Satisfactory. PULMONARY ARTERIES: No central or segmental pulmonary emboli. THORACIC AORTA: No aneurysm or dissection. LUNG: The central airways are patent. Moderate paraseptal and centrilobular emphysema. Areas of linear atelectasis in both lower lungs. Bronchial wall thickening in the lower lungs most prominently. No dense consolidation. There is a right lower lobe 0.6 cm pulmonary nodule, series 7 image 247. PLEURA: No pleural effusion or pneumothorax. MEDIASTINUM: Normal heart size. No pericardial effusion. No hilar or mediastinal lymphadenopathy. No evidence of septal bowing or right heart strain. CHEST WALL/AXILLA: No axillary or internal mammary lymphadenopathy. OSSEOUS STRUCTURES: No acute or suspicious osseous abnormality. Degenerative change throughout the spine. DISH. UPPER ABDOMEN: Unremarkable. No reflux of contrast into the hepatic veins to suggest elevated right heart pressures. CT/CT angio chest PE protocol IMPRESSION: No pulmonary embolism. Moderate emphysema. Bronchial wall thickening could be associated with acute or chronic small airways process. 0.6 cm right lower lobe pulmonary nodule. According to the UPDATED 2017 Fleischner Society recommendations, the advised follow-up imaging for a single 6-8 mm solid nodule is: LOW RISK PATIENT: CT at 6-12 months, then consider CT at 18-24 months. HIGH RISK PATIENT: CT at 6-12 months, then at 18-24 months. VTE: negative
--- NOTE | ~2022-02-22 | CT_ITS ---
EXAMINATION: CT HEAD WITHOUT CONTRAST CLINICAL INFORMATION: Altered mental status COMPARISON: CT head 09/22/2020 TECHNIQUE: Contiguous axial imaging was performed from the skull base to vertex without intravenous administration of contrast. This CT examination was performed using dose optimization techniques as appropriate, variously including the following: *Automated exposure control *Adjustment of mA and/or kV according to patient size (this includes techniques or standardized protocols for targeted exams where dose is matched to indication/reason for exam; i.e. extremities or head) *Use of iterative reconstruction technique DLP: 784 mGy-cm FINDINGS: There is no evidence of acute intracranial hemorrhage or territorial infarction. No abnormal mass effect or midline shift is seen. [place] to white matter differentiation is well preserved. No extra-axial fluid collections are identified. Proportional sulcal and prominence from cerebral volume loss. Patchy periventricular and deep white matter hypodensities suggestive of chronic microangiopathic ischemic changes. No acute calvarial fracture. The mastoid air cells and visualized portions of the paranasal sinuses are well aerated. CT/CT head/brain wo IV con IMPRESSION: No CT evidence of acute intracranial hemorrhage or edematous large vessel territorial infarction..
--- NOTE | 2022-02-22 12:14 | ECG_ITS ---
Test Reason : AMS Blood Pressure : / mmHG Vent. Rate : 072 BPM Atrial Rate : 000 BPM P-R Int : 000 ms QRS Dur : 130 ms QT Int : 414 ms P-R-T Axes : 000 076 -13 degrees QTc Int : 453 ms Atrial fibrillation Right bundle branch block T wave abnormality, consider inferior ischemia Abnormal ECG When compared with ECG of 09-MAY-2018 14:45, Atrial fibrillation has replaced Sinus rhythm Right bundle branch block is now Present Referred By: Tessa Du Electronically Signed By:JHON JOHNSON
[2022-02-22 12:19] VITALS: BP 124/81; PULSE 78; RESP 16; TEMP 36.4; O2SAT 94; BMI 23.1
[2022-02-22 16:11] LABS: MANUAL DIFF FLAG NO
[2022-02-22 16:14] LABS: Basophils Percent Auto 0.6 % (0-2); Eosinophils Absolute Auto 0.3 X10*3/uL (0.0-0.4); Eosinophils Percent Auto 6.1 % (0-4); Hematocrit 39.9 % (42.0-52.0); Imm Gran Abs Auto 0.01 X10*3/uL (0.00-0.03); Imm Gran Pct Auto 0.2 % (0.0-0.4); Lymphocytes Absolute Auto 0.9 X10*3/uL (1.2-4.9); Lymphocytes Percent Auto 16.1 % (20-40); Mean Corpuscular HGB Conc 32.6 g/dl (31.0-36.0); Mean Corpuscular Hemoglobin 29.3 pg (27.0-33.0); Mean Corpuscular Volume 90.1 fL (80.0-98.0); Mean Platelet Volume 9.4 fL (9.4-12.4); Monocytes Absolute Auto 0.4 X10*3/uL (0.1-1.2); Monocytes Percent Auto 7.2 % (2-11); Neutrophils Absolute Auto 3.8 x10*3/uL (2.0-8.3); Neutrophils Percent Auto 69.8 % (45-73); Platelet Count 318 X10*3/uL (160-400); Red Blood Count 4.43 X10*6/uL (4.60-5.80); Red Cell Distribution Width 12.1 % (11.0-16.0); White Blood Count 5.5 X10*3/uL (4.8-10.8)
[2022-02-22 16:25] LABS: Lactic Acid 1.1 mmol/L (0.5-2.0)
--- NOTE | 2022-02-22 16:32 | ED_ITS ---
HPI - Altered Mental Status General Chief Complaint: Altered Mental Status Stated Complaint: AMS Time Seen by Provider: 02/22/22 12:12 History of Present Illness HPI narrative: Patient is a 77-year-old male with a history of hypertension, hypercholesterolemia presents today with having episode of feeling confused, dizzy not quite right. Sudden in onset. Associated with some warm sensation in the chest. Patient claims it spontaneously resolved. There is no focal weakness. There is no loss of consciousness. Remember the incident but feels confused at the time. Denies any changes in color of stool. Denies any new medications. Denies any travel history. No abdominal pain. No vomiting. No diarrhea. No pain on urination no frequency. No leg pain. Not on blood thinners. History of the same without any specific triggers. Been happening for few months comes and goes 1 episode per week or so. Never had a full workup. There has been no changes in his medication. He has been compliant with his beta-ashley and also his cholesterol medications. Been taking omepraz ole. Related Data Home Medications Medication Instructions Recorded Confirmed atorvastatin 40 mg tablet 40 mg PO DAILY 05/10/20 05/10/20 metoprolol succinate 25 mg 25 mg PO DAILY 05/10/20 05/10/20 tablet,extended release 24 hr omeprazole 20 mg capsule,delayed 20 mg PO DAILY 05/10/20 05/10/20 release bupropion HCl 150 mg 24 hr tablet, 150 mg PO QAM 01/19/22 extended release cholecalciferol (vitamin D3) 25 25 mcg PO DAILY 01/19/22 mcg (1,000 unit) tablet escitalopram oxalate 10 mg tablet 10 mg PO DAILY 01/19/22 escitalopram oxalate 20 mg tablet 20 mg PO DAILY 01/19/22 propranolol 60 mg capsule,24 60 mg PO DAILY 01/19/22 hr,extended release Previous Rx's Medication Instructions Recorded amoxicillin 875 mg-potassium 1 tab PO BID 10 days #20 tabs 09/22/20 clavulanate 125 mg tablet (Augmentin) Allergies Allergy/AdvReac Type Severity Reaction Status Date / Time indomethacin [From INDOCIN] Allergy Intermediate RASH Verified 08/02/20 11:12 Sulfa (Sulfonamide Allergy Intermediate BLISTERS, Verified 08/02/20 11:12 Antibiotics) sore on [SULFA (SULFONAMIDE the end of ANTIBIOTICS)] his penis acetaminophen [Percocet] Allergy Unknown vomiting Verified 08/02/20 11:12 oxycodone [OXYCODONE] AdvReac Intermediate VOMITING/RA Verified 08/02/20 11:12 Review of Systems Review of Systems: LP note shows no diaphoresis. Yes all other systems are reviewed and are negative [facility] Past Medical History Attestation statement: The following information was validated with the patient. Medical History Bilateral knee pain Osteoarthritis of left knee Rotator cuff arthropathy of both shoulders Surgical History Status post right knee replacement Social History Social History Alcohol intake: never Advance Directives: No Advance Directives Information Provided: No Current occupation: [employer] - right handed Physical Exam ED Vital Signs: Vital Signs - 24 hr 02/22/22 12:19 02/22/22 18:28 02/22/22 18:28 Temperature 97.5 F 98.1 F Pulse Rate 78 70 70 Respiratory Rate 16 18 Blood Pressure 124/81 145/86 H 145/86 H Pulse Oximetry 94 95 Oxygen Delivery Method Room Air Room Air 02/22/22 18:28 02/22/22 18:31 Temperature Pulse Rate 77 97 Respiratory Rate Blood Pressure 138/77 147/91 H Pulse Oximetry Oxygen Delivery Method BMI result Body Mass Index 23.1 Appearance: Alert. Oriented X3. No acute distress. Eyes: Pupils equal, round and reactive to light. ENT: Pharynx normal. Neck: Normal inspection. Neck supple. No lymph nodes noted. No crepitus CVS: Normal heart rate and rhythm. Pulses normal. Normal S1 and S2 Respiratory: No respiratory distress. Breath sounds normal. No Wheezing. No rales Abdomen: Soft and nontender. No rigidity. No distention. good BS x4 Skin: Skin warm and dry. Normal skin color. Normal skin turgor. Extremities: No lower extremity edema. Neurovascular intact to all extremities. No Lacerations. No Rash Neuro: Oriented X 3. No motor deficit. No sensory deficit. Moving all extermities. No slurred speech MDM - Altered Mental Status MDM Narrative Medical decision making narrative: Two sets of cardiac enzymes were negative. Hemoglobin is 13. Electrolytes unremarkable. COVID test was negative. Will check orthostatics. The negative will discharge patient home close follow-up on an outpatient basis. CT the head was grossly negative for any acute evidence of bleeding. Patient's EKG did showed an atrial fibrillation which is new. Question of it is because of patient's change in mental status and having chest tightness. Will offer patient admission for further evaluation. He refused. Understood the risk of having arrhythmia. Risk of stroke. Risk of syncope/irregular heartbeat. Left against medical advice. Medical Records Attestation: I reviewed the patient's medical records. Lab Data Attestation: I reviewed the patient's lab results. Result diagrams: 02/22/22 16:04 02/22/22 16:04 Labs: Lab Results 02/22/22 02/22/22 02/22/22 Range/Units 16:04 16:04 16:04 WBC 5.5 (4.8-10.8) X10*3/uL RBC 4.43 L (4.60-5.80) X10*6/uL Hgb 13.0 L (14.0-18.0) g/dl Hct 39.9 L (42.0-52.0) % MCV 90.1 (80.0-98.0) fL MCH 29.3 (27.0-33.0) pg MCHC 32.6 (31.0-36.0) g/dl RDW 12.1 (11.0-16.0) % Plt Count 318 (160-400) X10*3/uL MPV 9.4 (9.4-12.4) fL Immature Gran % (Auto) 0.2 (0.0-0.4) % Neut % (Auto) 69.8 (45-73) % Lymph % (Auto) 16.1 L (20-40) % [place] % (Auto) 7.2 (2-11) % Eos % (Auto) 6.1 H (0-4) % Baso % (Auto) 0.6 (0-2) % Lymph # (Auto) 0.9 L (1.2-4.9) X10*3/uL [place] # (Auto) 0.4 (0.1-1.2) X10*3/uL Eos # (Auto) 0.3 (0.0-0.4) X10*3/uL Baso # (Auto) 0.0 (0.0-0.2) X10*3/uL Abs Immat Gran (auto) 0.01 (0.00-0.03) X10*3/uL Absolute Neuts (auto) 3.8 (2.0-8.3) x10*3/uL Absolute Nucleated RBC 0.000 (0.0-0.012) X10*3/uL Nucleated RBC % (auto) 0.0 (0.0-0.2) /100WBC Sodium 142 (135-145) mmol/L Potassium 4.9 (3.3-5.1) mmol/L Chloride 106 (96-108) mmol/L Carbon Dioxide 27 (22-29) mmol/L Anion Gap 14 (12-20) BUN 16 (9-16) mg/dL Creatinine 0.82 (0.5-1.4) mg/dL Estim Creat Clear Calc 87.3 Estimated GFR > 60 Random Glucose 136 H D (60-115) mg/dL Lactic Acid 1.1 (0.5-2.0) mmol/L Calcium 9.5 (8.4-10.2) mg/dL Magnesium 2.1 (1.6-2.6) mg/dL Total Bilirubin 0.8 (0.0-1.0) mg/dL Direct Bilirubin 0.4 (0.0-0.5) mg/dL AST 14 (5-37) U/L ALT 11 (0-40) U/L Alkaline Phosphatase 109 (39-117) U/L Troponin I High Sens (<3.5-35.0) ng/L Total Protein 7.0 (6.5-8.0) g/dL Albumin 3.9 (3.5-5.0) g/dL Ethyl Alcohol mg/dL COVID-19 (JG) (Negative) COVID-19 Clin Com 02/22/22 02/22/22 02/22/22 Range/Units 16:04 16:04 16:04 WBC (4.8-10.8) X10*3/uL RBC (4.60-5.80) X10*6/uL Hgb (14.0-18.0) g/dl Hct (42.0-52.0) % MCV (80.0-98.0) fL MCH (27.0-33.0) pg MCHC (31.0-36.0) g/dl RDW (11.0-16.0) % Plt Count (160-400) X10*3/uL MPV (9.4-12.4) fL Immature Gran % (Auto) (0.0-0.4) % Neut % (Auto) (45-73) % Lymph % (Auto) (20-40) % [place] % (Auto) (2-11) % Eos % (Auto) (0-4) % Baso % (Auto) (0-2) % Lymph # (Auto) (1.2-4.9) X10*3/uL [place] # (Auto) (0.1-1.2) X10*3/uL Eos # (Auto) (0.0-0.4) X10*3/uL Baso # (Auto) (0.0-0.2) X10*3/uL Abs Immat Gran (auto) (0.00-0.03) X10*3/uL Absolute Neuts (auto) (2.0-8.3) x10*3/uL Absolute Nucleated RBC (0.0-0.012) X10*3/uL Nucleated RBC % (auto) (0.0-0.2) /100WBC Sodium (135-145) mmol/L Potassium (3.3-5.1) mmol/L Chloride (96-108) mmol/L Carbon Dioxide (22-29) mmol/L Anion Gap (12-20) BUN (9-16) mg/dL Creatinine (0.5-1.4) mg/dL Estim Creat Clear Calc Estimated GFR Random Glucose (60-115) mg/dL Lactic Acid (0.5-2.0) mmol/L Calcium (8.4-10.2) mg/dL Magnesium (1.6-2.6) mg/dL Total Bilirubin (0.0-1.0) mg/dL Direct Bilirubin (0.0-0.5) mg/dL AST (5-37) U/L ALT (0-40) U/L Alkaline Phosphatase (39-117) U/L Troponin I High Sens 4.9 (<3.5-35.0) ng/L Total Protein (6.5-8.0) g/dL Albumin (3.5-5.0) g/dL Ethyl Alcohol < 10 mg/dL COVID-19 (JG) Negative (Negative) COVID-19 Clin Com See Note 02/22/22 Range/Units 17:48 WBC (4.8-10.8) X10*3/uL RBC (4.60-5.80) X10*6/uL Hgb (14.0-18.0) g/dl Hct (42.0-52.0) % MCV (80.0-98.0) fL MCH (27.0-33.0) pg MCHC (31.0-36.0) g/dl RDW (11.0-16.0) % Plt Count (160-400) X10*3/uL MPV (9.4-12.4) fL Immature Gran % (Auto) (0.0-0.4) % Neut % (Auto) (45-73) % Lymph % (Auto) (20-40) % [place] % (Auto) (2-11) % Eos % (Auto) (0-4) % Baso % (Auto) (0-2) % Lymph # (Auto) (1.2-4.9) X10*3/uL [place] # (Auto) (0.1-1.2) X10*3/uL Eos # (Auto) (0.0-0.4) X10*3/uL Baso # (Auto) (0.0-0.2) X10*3/uL Abs Immat Gran (auto) (0.00-0.03) X10*3/uL Absolute Neuts (auto) (2.0-8.3) x10*3/uL Absolute Nucleated RBC (0.0-0.012) X10*3/uL Nucleated RBC % (auto) (0.0-0.2) /100WBC Sodium (135-145) mmol/L Potassium (3.3-5.1) mmol/L Chloride (96-108) mmol/L Carbon Dioxide (22-29) mmol/L Anion Gap (12-20) BUN (9-16) mg/dL Creatinine (0.5-1.4) mg/dL Estim Creat Clear Calc Estimated GFR Random Glucose (60-115) mg/dL Lactic Acid (0.5-2.0) mmol/L Calcium (8.4-10.2) mg/dL Magnesium (1.6-2.6) mg/dL Total Bilirubin (0.0-1.0) mg/dL Direct Bilirubin (0.0-0.5) mg/dL AST (5-37) U/L ALT (0-40) U/L Alkaline Phosphatase (39-117) U/L Troponin I High Sens 4.2 (<3.5-35.0) ng/L Total Protein (6.5-8.0) g/dL Albumin (3.5-5.0) g/dL Ethyl Alcohol mg/dL COVID-19 (JG) (Negative) COVID-19 Clin Com Discharge Plan Discharge Clinical Impression: A-fib Patient Disposition: Left Against Medical Advice Instructions: A-fib (Atrial Fibrillation) (ED) Prescriptions: No Action amoxicillin-pot clavulanate [Augmentin] 875-125 mg tablet 1 tab PO BID 10 Days Qty: 20 0RF omeprazole 20 mg capsule,delayed release(DR/EC) 20 mg PO DAILY metoprolol succinate 25 mg tablet extended release 24 hr 25 mg PO DAILY atorvastatin 40 mg tablet 40 mg PO DAILY bupropion HCl 150 mg tablet extended release 24 hr 150 mg PO QAM propranolol 60 mg capsule,extended release 24 hr 60 mg PO DAILY cholecalciferol (vitamin D3) 25 mcg (1,000 unit) tablet 25 mcg PO DAILY escitalopram oxalate 20 mg tablet 20 mg PO DAILY escitalopram oxalate 10 mg tablet 10 mg PO DAILY Referrals: Mahesh Tapia MD [Physician] -
[2022-02-22 16:34] LABS: Ethanol < 10 mg/dL
[2022-02-22 16:35] LABS: Troponin-I High Sensitivity 4.9 ng/L (<3.5-35.0)
[2022-02-22 16:36] LABS: COVID-19 Test Negative (Negative)
[2022-02-22 16:38] LABS: Alanine Aminotransferase 11 U/L (0-40); Albumin Level 3.9 g/dL (3.5-5.0); Alkaline Phosphatase 109 U/L (39-117); Anion Gap 14 (12-20); Aspartate Amino Transferase 14 U/L (5-37); Bilirubin Direct 0.4 mg/dL (0.0-0.5); Bilirubin Total 0.8 mg/dL (0.0-1.0); Blood Urea Nitrogen 16 mg/dL (9-16); Calcium 9.5 mg/dL (8.4-10.2); Carbon Dioxide 27 mmol/L (22-29); Chloride 106 mmol/L (96-108); Creatinine Clr Calc Pharmacy 87.3; Estimated Glomerular Filt Rate > 60; Glucose Random 136 mg/dL (60-115); Magnesium 2.1 mg/dL (1.6-2.6); Potassium 4.9 mmol/L (3.3-5.1); Sodium 142 mmol/L (135-145)
[2022-02-22 18:15] LABS: Troponin-I High Sensitivity 4.2 ng/L (<3.5-35.0)
[2022-02-22 18:28] VITALS: BP 138/77; BP 145/86; PULSE 70; PULSE 77; RESP 18; TEMP 36.7; O2SAT 95
[2022-02-22 18:31] VITALS: BP 147/91; PULSE 97
--- NOTE | 2022-02-22 18:37 | PC.NURSE ---
Patient reportedly at Doctors appointment where he felt like he could not speak. Tells this RN that he feels like he was better after about 30 min
[2022-02-22 19:28] LABS: Appearance Urine Cloudy; Color Urine Yellow; Glucose Urine UA Negative (Negative); Leukocyte Esterase Urine Large (3+) (Negative); Nitrite Urine Positive (Negative); Specific Gravity - Urine 1.015 (1.005-1.025); UMIC TRIGGER UACC YES; Urine Blood Negative (Negative); Urine Ketones Negative (Negative); Urine Protein Trace mg/dL (Neg-Trace)
[2022-02-22 19:33] LABS: Bacteria Urine 4+ (None Seen); RBC Urine 0-2 /HPF (0-2); Squamous Epithelial Cell Urine 0-2 /HPF (0-2); UACC Culture Trigger YES; WBC Urine >50 /HPF (0-5)
[2022-02-22 19:47] LABS: Thyroid Stimulating Hormone 0.88 uIU/mL (0.32-4.0)
[2022-02-22 19:48] LABS: Amphetamine Screen Urine Not Detected (Not Detect); Barbiturates, Urine Not Detected (Not Detect); Benzodiazepines Screen Urine Not Detected (Not Detect); Cannabinoid Screen Urine Not Detected (Not Detect); Cocaine Screen Urine Not Detected (Not Detect); Fentanyl, urine Not Detected (Not Detect); Opiate Screen Urine Not Detected (Not Detect); Phencyclidine Screen Urine Not Detected (Not Detect)
[2022-02-22 20:43] LABS: D Dimer High Sensitivity 371 NG/ML
[2022-02-22 21:09] VITALS: BP 136/81; PULSE 77; RESP 18; TEMP 36.8; O2SAT 97
--- NOTE | 2022-02-22 21:09 | P.HPHOSP_ITS ---
History of Present Illness Date of Service: 02/22/22 Chief Complaint: Chest pain 77-year-old male with a past medical history of hypertension, hyperlipidemia, anxiety, depression, osteoarthritis, GERD presented to the hospital today with a chief complaint of chest pain. Patient reports that he came to the hospital to see his mentioned only he had an episode of brief amnesia. When he was questioned who he was and where he was by the staff he was not able to recall information. Followed by he felt discomfort in his chest-felt like burning. Also had mild lightheadedness; did not lose consciousness. Denies seizure-like activity. Reports similar episodes in the past. Now he mentions he is back to his normal and able to recall everything. Denies any numbness tingling or focal weakness. Denies any prior history of seizures. Reports no nausea vomiting or diarrhea. Denies any urinary symptoms. Review of all other systems is negative except mentioned above ER course: Per ER team patient's initial EKG concerning for AFib-new onset; troponins were negative; concern for near syncope. Admitted to the hospital for further management. [facility] Medical History Bilateral knee pain Osteoarthritis of left knee Rotator cuff arthropathy of both shoulders Pertinent family history: Reviewed Surgical History Status post right knee replacement Social History Alcohol intake: never Advance Directives: No Advance Directives Information Provided: No Current occupation: [employer] - right handed Meds Allergies Allergy/AdvReac Type Severity Reaction Status Date / Time indomethacin [From INDOCIN] Allergy Intermediate RASH Verified 08/02/20 11:12 Sulfa (Sulfonamide Allergy Intermediate BLISTERS, Verified 08/02/20 11:12 Antibiotics) sore on [SULFA (SULFONAMIDE the end of ANTIBIOTICS)] his penis acetaminophen [Percocet] Allergy Unknown vomiting Verified 08/02/20 11:12 oxycodone [OXYCODONE] AdvReac Intermediate VOMITING/RA Verified 08/02/20 11:12 Active Medications: Current Medications Enoxaparin Sodium (Enoxaparin Sodium 40 Mg/0.4 Ml Syringe) 40 mg SUBCUT Q24H BISI Melatonin (Melatonin 3 Mg Tablet) 6 mg PO BEDTIME PRN PRN Reason: Insomnia Pharmacy Consult (Consult Rx Perform Med Rec) 1 each MISCELLANE ONCE PRN PRN Reason: Consult order Senna (Sennosides 8.6 Mg Tablet) 17.2 mg PO BEDTIME PRN PRN Reason: Constipation Sodium Chloride (0.9 % Sodium Chloride Flush 3 Ml Syringe) 3 [facility] Home Medications Medication Instructions Recorded Confirmed Last Taken Type atorvastatin 40 mg tablet 40 mg PO DAILY 05/10/20 05/10/20 Unknown History metoprolol succinate 25 mg 25 mg PO DAILY 05/10/20 05/10/20 Unknown History tablet,extended release 24 hr omeprazole 20 mg capsule,delayed 20 mg PO DAILY 05/10/20 05/10/20 Unknown History release bupropion HCl 150 mg 24 hr tablet, 150 mg PO QAM 01/19/22 Unknown History extended release cholecalciferol (vitamin D3) 25 25 mcg PO DAILY 01/19/22 Unknown History mcg (1,000 unit) tablet escitalopram oxalate 10 mg tablet 10 mg PO DAILY 01/19/22 Unknown History escitalopram oxalate 20 mg tablet 20 mg PO DAILY 01/19/22 Unknown History propranolol 60 mg capsule,24 60 mg PO DAILY 01/19/22 Unknown History hr,extended release Physical Exam Vital Signs and Narrative: Vital Signs: Last Vital Signs Temp 98.1 F 02/22/22 18:28 Pulse 97 02/22/22 18:31 Resp 18 02/22/22 18:28 BP 147/91 H 02/22/22 18:31 Pulse Ox 95 02/22/22 18:28 O2 Del Method 02/22/22 18:28 BMI result Body Mass Index 23.1 Gen: Appears be in no acute distress HEENT: NCAT, Moist mucosa. Pulmonary: Vesicular breath sounds, fair air entry CVS: Normal S1-S2 Abdomen: BS+, Soft, Nontender Extremities: Warm well perfused Neuro: Alert and awake. Results Labs CBC and Chem 7: 02/22/22 16:04 02/22/22 16:04 Labs: Laboratory Results - last 24 hr 02/22/22 02/22/22 02/22/22 16:04 16:04 16:04 MCV 90.1 MCH 29.3 MCHC 32.6 RDW 12.1 Plt Count 318 MPV 9.4 Immature Gran % (Auto) 0.2 Neut % (Auto) 69.8 Lymph % (Auto) 16.1 L [place] % (Auto) 7.2 Eos % (Auto) 6.1 H Baso % (Auto) 0.6 Lymph # (Auto) 0.9 L [place] # (Auto) 0.4 Eos # (Auto) 0.3 Baso # (Auto) 0.0 Abs Immat Gran (auto) 0.01 Absolute Neuts (auto) 3.8 Absolute Nucleated RBC 0.000 Nucleated RBC % (auto) 0.0 D-Dimer High Sensitivty Anion Gap 14 Estim Creat Clear Calc 87.3 Estimated GFR > 60 Random Glucose 136 H D Lactic Acid 1.1 Calcium 9.5 Magnesium 2.1 Total Bilirubin 0.8 Direct Bilirubin 0.4 AST 14 ALT 11 Alkaline Phosphatase 109 Total Protein 7.0 Albumin 3.9 TSH 0.88 Urine Color Urine Appearance Urine pH Ur Specific [place] Urine Protein Urine Glucose (UA) Urine Ketones Urine Blood Urine Nitrite Ur Leukocyte Esterase Urine RBC Urine WBC Ur Squamous Epith Cells Urine Bacteria Hyaline Casts Urine Opiates Screen Urine Fentanyl Screen Ur Barbiturates Screen Ur Phencyclidine Scrn Ur Amphetamines Screen U Benzodiazepines Scrn Urine Cocaine Screen U Marijuana (THC) Screen Ethyl Alcohol COVID-19 (JG) COVID-19 Clin Com 02/22/22 02/22/22 02/22/22 16:04 16:04 19:19 MCV MCH MCHC RDW Plt Count MPV Immature Gran % (Auto) Neut % (Auto) Lymph % (Auto) [place] % (Auto) Eos % (Auto) Baso % (Auto) Lymph # (Auto) [place] # (Auto) Eos # (Auto) Baso # (Auto) Abs Immat Gran (auto) Absolute Neuts (auto) Absolute Nucleated RBC Nucleated RBC % (auto) D-Dimer High Sensitivty Anion Gap Estim Creat Clear Calc Estimated GFR Random Glucose Lactic Acid Calcium Magnesium Total Bilirubin Direct Bilirubin AST ALT Alkaline Phosphatase Total Protein Albumin TSH Urine Color Yellow Urine Appearance Cloudy Urine pH 6.0 Ur Specific [place] 1.015 Urine Protein Trace Urine Glucose (UA) Negative Urine Ketones Negative Urine Blood Negative Urine Nitrite Positive H Ur Leukocyte Esterase Large (3+) H Urine RBC 0-2 Urine WBC >50 H Ur Squamous Epith Cells 0-2 Urine Bacteria 4+ Hyaline Casts 3-5 Urine Opiates Screen Urine Fentanyl Screen Ur Barbiturates Screen Ur Phencyclidine Scrn Ur Amphetamines Screen U Benzodiazepines Scrn Urine Cocaine Screen U Marijuana (THC) Screen Ethyl Alcohol < 10 COVID-19 (JG) Negative COVID-19 Clin Com See Note 02/22/22 02/22/22 19:19 20:18 MCV MCH MCHC RDW Plt Count MPV Immature Gran % (Auto) Neut % (Auto) Lymph % (Auto) [place] % (Auto) Eos % (Auto) Baso % (Auto) Lymph # (Auto) [place] # (Auto) Eos # (Auto) Baso # (Auto) Abs Immat Gran (auto) Absolute Neuts (auto) Absolute Nucleated RBC Nucleated RBC % (auto) D-Dimer High Sensitivty 371 Anion Gap Estim Creat Clear Calc Estimated GFR Random Glucose Lactic Acid Calcium Magnesium Total Bilirubin Direct Bilirubin AST ALT Alkaline Phosphatase Total Protein Albumin TSH Urine Color Urine Appearance Urine pH Ur Specific [place] Urine Protein Urine Glucose (UA) Urine Ketones Urine Blood Urine Nitrite Ur Leukocyte Esterase Urine RBC Urine WBC Ur Squamous Epith Cells Urine Bacteria Hyaline Casts Urine Opiates Screen Not Detected Urine Fentanyl Screen Not Detected Ur Barbiturates Screen Not Detected Ur Phencyclidine Scrn Not Detected Ur Amphetamines Screen Not Detected U Benzodiazepines Scrn Not Detected Urine Cocaine Screen Not Detected U Marijuana (THC) Screen Not Detected Ethyl Alcohol COVID-19 (JG) COVID-19 Clin Com Imaging Radiologist's Impressions: Impressions Head CT 02/22/22 17:18 IMPRESSION: No CT evidence of acute intracranial hemorrhage or edematous large vessel territorial infarction.. Assessment and Plan (1) A-fib: Status: Acute Plan 77-year-old male with a past medical history of hypertension, hyperlipidemia, anxiety, depression, osteoarthritis, GERD presented to the hospital today with a chief complaint of chest pain. Chest discomfort: EKG nonischemic. Troponin negative. Monitor on telemetry. New onset AFib: Rate controlled. Cardiology consult. Echocardiogram Brief episode of amnesia: Unclear etiology. Patient reports prior episodes. Denies any seizure-like activity. Denies any postictal state. Nephrology History of hypertension/hyperlipidemia: Continue home medications DVT prophylaxis: Subcu heparin Code status: Full code Quality Stroke Does the patient have a stroke diagnosis?: No VTE Prior VTE?: No VTE Risk Level:: Medical - moderate - high VTE Device Contraindication: Treatment Not Indicated VTE Drug Contraindication: N/A - Med Ordered
[2022-02-22 23:39] VITALS: BP 142/80; PULSE 64; RESP 20; O2SAT 94
[2022-02-23] VITALS (9 sets, daily range): BP systolic 118–167; BP diastolic 64–91; PULSE 67–99; RESP 16–20; TEMP 36.4–37.1; O2SAT 95–98; BMI 23.1
--- NOTE | 2022-02-23 00:44 | PC.NURSE ---
Med. late d/t this RN in with a critical pt.
[2022-02-23] MEDS: Enoxaparin Sodium 40 MG/0.4 ML SYRINGE SUBCUT (00:45)
[2022-02-23] MEDS: 0.9 % Sodium Chloride Flush 3 ML SYRINGE IVFLUSH ×4 (00:45→20:55)
[2022-02-23 04:50] LABS: MANUAL DIFF FLAG NO
[2022-02-23 04:51] LABS: Basophils Percent Auto 0.7 % (0-2); Eosinophils Absolute Auto 0.4 X10*3/uL (0.0-0.4); Eosinophils Percent Auto 6.6 % (0-4); Hematocrit 36.4 % (42.0-52.0); Imm Gran Abs Auto 0.02 X10*3/uL (0.00-0.03); Imm Gran Pct Auto 0.3 % (0.0-0.4); Lymphocytes Absolute Auto 1.1 X10*3/uL (1.2-4.9); Lymphocytes Percent Auto 18.5 % (20-40); Mean Corpuscular Hemoglobin 29.3 pg (27.0-33.0); Mean Platelet Volume 9.4 fL (9.4-12.4); Monocytes Absolute Auto 0.7 X10*3/uL (0.1-1.2); Monocytes Percent Auto 11.2 % (2-11); Neutrophils Absolute Auto 3.8 x10*3/uL (2.0-8.3); Neutrophils Percent Auto 62.7 % (45-73); Platelet Count 290 X10*3/uL (160-400); Red Blood Count 4.09 X10*6/uL (4.60-5.80); White Blood Count 6.1 X10*3/uL (4.8-10.8)
[2022-02-23 05:13] LABS: Anion Gap 12 (12-20); Blood Urea Nitrogen 14 mg/dL (9-16); Calcium 8.9 mg/dL (8.4-10.2); Carbon Dioxide 26 mmol/L (22-29); Chloride 107 mmol/L (96-108); Creatinine Clr Calc Pharmacy 95.5; Estimated Glomerular Filt Rate > 60; Glucose Random 112 mg/dL (60-115); Potassium 3.6 mmol/L (3.3-5.1); Sodium 141 mmol/L (135-145)
[2022-02-23] MEDS: iohexoL 350 MG/ML 100 ML INFUS..BTL IV (05:28)
--- NOTE | 2022-02-23 07:26 | PHA.MEDREC ---
Pharmacy Consult ? Medication Reconciliation Pharmacy has reviewed the medication reconciliation by Mandi.
[2022-02-23] MEDS: Cholecalciferol (Vitamin D3) 25 MCG TABLET PO (08:07)
[2022-02-23] MEDS: Omeprazole 20 MG CAPSULE.DR PO (08:07)
[2022-02-23] MEDS: Finasteride 5 MG TABLET PO (08:07)
[2022-02-23] MEDS: Escitalopram Oxalate 20 MG TABLET PO (08:08)
[2022-02-23] MEDS: Atorvastatin Calcium 40 MG TABLET PO (08:08)
[2022-02-23] MEDS: buPROPion HCl XL 150 MG TAB.ER.24H PO (08:08)
--- NOTE | 2022-02-23 08:10 | PC.NURSE ---
pt is alert and oriented, skin pwd, respirations even and unlabored, pt denies chest pain/sob, a-fib on the monitor but rate controlled in the 80's
--- NOTE | 2022-02-23 08:14 | CA_ITS ---
Transthoracic Echocardiogram Patient (Last, First, Middle): Reji Tony J Gender: Male Date of : 1945 Age: 77 Procedure Date: 02/23/2022 Procedure Type: Transthoracic [place]ogram [place] [facility] [place]: 185.42 cm Weight: 79.38 kg BSA: 2.03 m2 Heart Rate: bpm BP: 137 / 80 mmHg [employer] Director: TO Referring MD: Selma ALEMAN Paperhanger: Mahesh Tapia MD Symptoms: new onset afib Study Quality: Adequate ECG Rhythm: Atrial Fibrillation Conclusions: - 1. Normal LV systolic function with normal filling pressures 2. Severely dilated left atrium 3. Mild mitral regurgitation 4. Normal RV systolic pressure 5. No gross pericardial effusion Findings Left Ventricle Normal left ventricular size, thickness, and systolic function. The visually estimated ejection fraction is between 60-65%. Normal left ventricular filling pressures. E/E prime ratio is <8, consistent with normal filling pressures. Right Ventricle Mildly increased right ventricular cavity size. There is normal right ventricular systolic function. Atria The left atrium is severely dilated. Interatrial shunt cannot be excluded. The right atrium is mildly dilated. Aortic Valve There is mild calcification of the aortic valve. There is no aortic valve stenosis. There is no aortic valve regurgitation. Mitral Valve There is mild anterior and posterior mitral leaflet thickening. There is mild mitral valve regurgitation. There is no mitral valve stenosis. Pulmonic Valve The pulmonic valve was not well visualized. Tricuspid Valve Normal tricuspid valve structure. There is mild tricuspid valve regurgitation. The right ventricular systolic pressure is normal. The right ventricular systolic pressure is 24 mmHg. Normal right atrial pressure. There is no evidence of pulmonary hypertension. Great Vessels All visible segments of the aorta are normal in size. The pulmonary artery was not well visualized. Venous The inferior vena cava is normal in size and collapses greater than 50% with inspiration. Pericardium/Pleural There is no evidence of pericardial effusion. Prior Study Comparison Changes noted compared to prior study dated: 05/20/2018. left atrium is severely dilated Measurements 2D Linear Measurements IVSd: 1.04 0.6-0.9/0.6-1.0 cm LVIDd: 3.18 3.9-5.3/4.2-5.9 cm LVIDd Index: 1.57 2.4-3.2/2.2-3.1 cm/m2 LVIDs: 2.25 2.0-3.6 cm LVPWd: 0.98 0.7-1.1 cm LA Diam: 5.10 2.7-3.8/3.0-4.0 cm LAIDs Index: 2.51 1.5-2.3 cm/m2 LV Mass: 112.87 67-162/88-224 g LV Mass Index: 55.60 43-95/49-115 g/m2 LVOT Diam: 2.20 3.0+(-)1.3 cm 2D Systolic Function EF 4C: 69.00 >55% Mitral Valve MV Pk E: 0.90 MV Decel Time: 204.00 E'Lateral: 14.70 E'Medial: 8.92 E/E' Med: 10.10 E/E' Lat: 6.10 PHT: 60.00 MVA PHT: 3.67 Decel Greenlee: 4.42 Aortic Valve AoV Pk Ottoniel: 1.45 AoV Mn Ottoniel: 1.00 AoV VTI: 0.28 AoV Pk Grad: 8.00 Aov Mn Grad: 5.00 PILAR Cont.VTI: 2.91 LVOT LVOT Pk Ottoniel: 1.02 LVOT Mn Ottoniel: 0.68 LVOT VTI: 0.22 LVOT Pk Grad: 4.00 LVOT Mn Grad: 2.00 LVOT Diam: 2.20 LVOT Area: 3.80 Diastolic Function MV Pk E: 0.90 E'Medial: 8.92 E/E' Med: 10.10 E' Laterial: 14.70 E/E' Lat: 6.10 Right Ventricle TAPSE (mm): 19.10 TVS' Ottoniel: 10.00 Tricuspid Valve TR Pk Ottoniel: 2.31 TR Pk Grad: 21.00 RA Press: 3.00 RVSP: 24.00 Great Vessels Aorta Sinus of Valsalva: 4.07 2.0-3.5 cm Ao Asc: 3.90 2.1-3.4 cm Updated in Other Vendor System with Status of Final Mahesh Tapia MD electronically signed on 02/23/2022 12:58:36 PM with status of Final
--- NOTE | 2022-02-23 08:17 | PC.NURSE ---
leonor shetty for report awaiting a call back
--- NOTE | 2022-02-23 08:35 | PC.NURSE ---
report given to [facility] rn
[2022-02-23] MEDS: Propranolol HCL LA 60 MG CAP.SA.24H PO (10:30)
--- NOTE | 2022-02-23 10:34 | P.CONCA_ITS ---
History of Present Illness History of Present Illness Date of Service: 02/23/22 Requesting physician: Selma Vee Consult reason: atrial fibrillation Chief complaint: New onset Afib Narrative: I was consulted to see Reji in cardiology consultation today for noted atrial fibrillation with controlled ventricular response yesterday. 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 Patient is being managed with statins and aspirin. Patient also has history of depression. Came yesterday to with his who is getting chemotherapy. While he was getting checked in and evaluated for visitor policy, he suddenly got dizzy and then did know where he was and got forgetful. He was not able to communicate with the attendant and therefore he was put in a wheelchair and then and subsequently was brought to the emergency room very was noted to be in atrial fibrillation controlled ventricular response. He said he has been getting these episodes many times and usually always happens in upright position and subsequently after this symptoms started any gets wall feeling in his chest. He does not get diaphoresis has never syncopized. Has had no focal neurologic deficits. Symptoms usually resolve after he has been sitting for 15-30 minutes. No diagnosis has been made. He underwent a CT scan yesterday which was negative for any acute lesions. Overnight and in supine position is been fine. Denies any exertional chest pain. Denies any shortness of breath, orthopnea, PND, exercise intolerance recently. Review of Systems Constitutional: Constitutional: Reports no additional constitutional complaints Eyes: Eyes: Reports no additional eye complaints ENT: Reports dizziness Cardiovascular: Cardiovascular: Denies chest pain, Denies syncope, Denies irregular heart rhythm, Denies leg edema, Reports lightheadedness, Denies p alpitations, Denies dyspnea and Denies dyspnea on exertion Respiratory: Respiratory: Reports no additional respiratory complaints, Denies dyspnea and Denies dyspnea on exertion Gastrointestinal: Gastrointestinal: Reports no additional gastrointestinal complaints Genitourinary: Genitourinary: Reports no additional male genitourinary comp laints Musculoskeletal: Musculoskeletal: Reports no additional musculoskeletal complaints Integumentary/Breasts: Skin/Breast: Reports system reviewed and no additional complaints, except as docu Neurologic: Reports dizziness, Denies syncope and Reports memory loss Psychiatric: Psychiatric: Reports no additional psychiatric complaints and Reports memory loss Endocrine: Endocrine: Reports no additional endocrine complaints and Denies palpitations Hematologic/Lymphatic: Hematologic/Lymphatic: Reports no additional hematologic/lymphatic complaints Allergic/Immunologic: Allergic/Immunologic: Reports no additional allergic/immunologic complaints [facility] Past Medical History Medical History Bilateral knee pain Osteoarthritis of left knee Rotator cuff arthropathy of both shoulders Surgical History Surgical History Status post right knee replacement Social History Social History Household Members: Spouse Housing: House Do you presently have visiting nurse or other home services: No Alcohol intake: former Patient Tobacco Use Status: Former Tobacco user Smoked in Last 30 Days: No Use of substances other than those prescribed or required for medical reasons: No Any prior treatment program specific to substance use: No Have you been hit, kicked, punched, or otherwise hurt by someone within the past year? If so, by whom?: No Do you feel safe in your current relationship?: Yes Is there a partner from a previous relationship who is making you feel unsafe now?: No Advance Directives: No Advance Directives Information Provided: No Do you have thoughts of harming others: None Do you have a plan to hurt others: No Plan Recently lost weight without trying: No How much weight loss: Not applicable Eating poorly because of decreased appetite: No Nutrition screen score: 0 Nutrition Risks: No Nutritional Risk Poor oral hygiene: No Current occupation: [employer] - right handed Meds Allergies Allergy/AdvReac Type Severity Reaction Status Date / Time indomethacin [From INDOCIN] Allergy Intermediate RASH Verified 08/02/20 11:12 Sulfa (Sulfonamide Allergy Intermediate BLISTERS, Verified 08/02/20 11:12 Antibiotics) sore on [SULFA (SULFONAMIDE the end of ANTIBIOTICS)] his penis acetaminophen [Percocet] Allergy Unknown vomiting Verified 08/02/20 11:12 oxycodone [OXYCODONE] AdvReac Intermediate VOMITING/RA Verified 08/02/20 11:12 SH Active Medications: Current Medications Atorvastatin Calcium (Atorvastatin Calcium 40 Mg Tablet) 40 mg PO DAILY BISI Last Admin: 02/23/22 08:08 Dose: 40 mg Bupropion HCl (Bupropion Hcl Xl 150 Mg Tab.Er.24h) 150 mg PO DAILY [facility] Last Admin: 02/23/22 08:08 Dose: 150 mg Enoxaparin Sodium (Enoxaparin Sodium 40 Mg/0.4 Ml Syringe) 40 mg SUBCUT Q24H [facility] Last Admin: 02/23/22 00:45 Dose: 40 mg Escitalopram Oxalate (Escitalopram Oxalate 20 Mg Tablet) 20 mg PO DAILY [facility] Last Admin: 02/23/22 08:08 Dose: 20 mg Finasteride (Finasteride 5 Mg Tablet) 5 mg PO DAILY [facility] Last Admin: 02/23/22 08:07 Dose: 5 mg Melatonin (Melatonin 3 Mg Tablet) 6 mg PO BEDTIME PRN PRN Reason: Insomnia Omeprazole (Omeprazole 20 Mg Capsule.Dr) 20 mg PO DAILY [facility] Last Admin: 02/23/22 08:07 Dose: 20 mg Pharmacy Consult (Consult Rx Perform Med Rec) 1 each MISCELLANE ONCE PRN PRN Reason: Consult order Propranolol HCl (Propranolol Hcl La 60 Mg Cap.Sa.24h) 60 mg PO DAILY [facility]; Protocol Last Admin: 02/23/22 10:30 Dose: 60 mg Senna (Sennosides 8.6 Mg Tablet) 17.2 mg PO BEDTIME PRN PRN Reason: Constipation Sodium Chloride (0.9 % Sodium Chloride Flush 3 Ml Syringe) 3 ml IVFLUSH QSHIFT [facility] Last Admin: 02/23/22 08:08 Dose: 3 ml Vitamin D (Cholecalciferol (Vitamin D3) 25 Mcg Tablet) 25 mcg PO DAILY [facility] Last Admin: 02/23/22 08:07 Dose: 25 mcg Home Medications Medication Instructions Recorded Confirmed Last Taken Type atorvastatin 40 mg tablet 40 mg PO DAILY 05/10/20 02/23/22 Unknown History omeprazole 20 mg capsule,delayed 20 mg PO DAILY 05/10/20 02/23/22 Unknown History release bupropion HCl 150 mg 24 hr tablet, 150 mg PO QAM 01/19/22 02/23/22 Unknown History extended release cholecalciferol (vitamin D3) 25 25 mcg PO DAILY 01/19/22 02/23/22 Unknown History mcg (1,000 unit) tablet escitalopram oxalate 20 mg tablet 20 mg PO DAILY 01/19/22 02/23/22 Unknown History propranolol 60 mg capsule,24 60 mg PO DAILY 01/19/22 02/23/22 Unknown History hr,extended release finasteride 5 mg tablet 5 mg PO DAILY 02/23/22 02/23/22 Unknown History Physical Exam Vital Signs: Vital Signs: Last Vital Signs Temp 97.8 F 02/23/22 09:26 Pulse 77 02/23/22 09:26 Resp 20 02/23/22 09:26 BP 118/82 02/23/22 09:26 Pulse Ox 96 02/23/22 09:26 O2 Del Method 02/23/22 09:26 BMI result Body Mass Index 23.1 Const: General: cooperative, comfortable, no acute distress, alert, awake and Physically active Nutritional Appearance: average body habitus Orientation/consciousness: patient oriented x3 Limitations: no limitations HEENT: Head: Yes normocephalic and Yes atraumatic Neck: Neck: Yes trachea midline, Yes supple and Yes no JVD Resp: Effort & Inspection: normal respiratory effort Auscultation: clear to auscultation bilaterally Cardio: Jugular venous distension: no JVD Palpation: normal PMI Rhythm: abnormal rhythm irregularly irregular Heart sounds: S1 normal heart sound present, S2 normal heart sound present, no click, no gallops, no murmurs and no rubs GI: Auscultation: normal bowel sounds Skin: General skin exam: no rashes or lesions noted Neuro: General: patient oriented x3 and no focal motor deficits Extrem: General: Yes no clubbing, cyanosis or edema Objective Labs and Meds Result diagrams: 02/23/22 04:30 02/23/22 04:30 Lab results: Laboratory Results - last 24 hr 02/22/22 02/22/22 02/22/22 16:04 16:04 16:04 WBC 5.5 RBC 4.43 L Hgb 13.0 L Hct 39.9 L MCV 90.1 MCH 29.3 MCHC 32.6 RDW 12.1 Plt Count 318 MPV 9.4 Immature Gran % (Auto) 0.2 Neut % (Auto) 69.8 Lymph % (Auto) 16.1 L Crosby % (Auto) 7.2 Eos % (Auto) 6.1 H Baso % (Auto) 0.6 Lymph # (Auto) 0.9 L Crosby # (Auto) 0.4 Eos # (Auto) 0.3 Baso # (Auto) 0.0 Abs Immat Gran (auto) 0.01 Absolute Neuts (auto) 3.8 Absolute Nucleated RBC 0.000 Nucleated RBC % (auto) 0.0 D-Dimer High Sensitivty Sodium 142 Potassium 4.9 Chloride 106 Carbon Dioxide 27 Anion Gap 14 BUN 16 Creatinine 0.82 Estim Creat Clear Calc 87.3 Estimated GFR > 60 Random Glucose 136 H D Lactic Acid 1.1 Calcium 9.5 Magnesium 2.1 Total Bilirubin 0.8 Direct Bilirubin 0.4 AST 14 ALT 11 Alkaline Phosphatase 109 Troponin I High Sens Total Protein 7.0 Albumin 3.9 TSH 0.88 Urine Color Urine Appearance Urine pH Ur Specific [place] Urine Protein Urine Glucose (UA) Urine Ketones Urine Blood Urine Nitrite Ur Leukocyte Esterase Urine RBC Urine WBC Ur Squamous Epith Cells Urine Bacteria Hyaline Casts Urine Opiates Screen Urine Fentanyl Screen Ur Barbiturates Screen Ur Phencyclidine Scrn Ur Amphetamines Screen U Benzodiazepines Scrn Urine Cocaine Screen U Marijuana (THC) Screen Ethyl Alcohol COVID-19 (JG) COVID-19 Clin Com 02/22/22 02/22/22 02/22/22 16:04 16:04 16:04 WBC RBC Hgb Hct MCV MCH MCHC RDW Plt Count MPV Immature Gran % (Auto) Neut % (Auto) Lymph % (Auto) Crosby % (Auto) Eos % (Auto) Baso % (Auto) Lymph # (Auto) Crosby # (Auto) Eos # (Auto) Baso # (Auto) Abs Immat Gran (auto) Absolute Neuts (auto) Absolute Nucleated RBC Nucleated RBC % (auto) D-Dimer High Sensitivty Sodium Potassium Chloride Carbon Dioxide Anion Gap BUN Creatinine Estim Creat Clear Calc Estimated GFR Random Glucose Lactic Acid Calcium Magnesium Total Bilirubin Direct Bilirubin AST ALT Alkaline Phosphatase Troponin I High Sens 4.9 Total Protein Albumin TSH Urine Color Urine Appearance Urine pH Ur Specific [place] Urine Protein Urine Glucose (UA) Urine Ketones Urine Blood Urine Nitrite Ur Leukocyte Esterase Urine RBC Urine WBC Ur Squamous Epith Cells Urine Bacteria Hyaline Casts Urine Opiates Screen Urine Fentanyl Screen Ur Barbiturates Screen Ur Phencyclidine Scrn Ur Amphetamines Screen U Benzodiazepines Scrn Urine Cocaine Screen U Marijuana (THC) Screen Ethyl Alcohol < 10 COVID-19 (JG) Negative COVID-19 Clin Com See Note 02/22/22 02/22/22 02/22/22 17:48 19:19 19:19 WBC RBC Hgb Hct MCV MCH MCHC RDW Plt Count MPV Immature Gran % (Auto) Neut % (Auto) Lymph % (Auto) Crosby % (Auto) Eos % (Auto) Baso % (Auto) Lymph # (Auto) Crosby # (Auto) Eos # (Auto) Baso # (Auto) Abs Immat Gran (auto) Absolute Neuts (auto) Absolute Nucleated RBC Nucleated RBC % (auto) D-Dimer High Sensitivty Sodium Potassium Chloride Carbon Dioxide Anion Gap BUN Creatinine Estim Creat Clear Calc Estimated GFR Random Glucose Lactic Acid Calcium Magnesium Total Bilirubin Direct Bilirubin AST ALT Alkaline Phosphatase Troponin I High Sens 4.2 Total Protein Albumin TSH Urine Color Yellow Urine Appearance Cloudy Urine pH 6.0 Ur Specific [place] 1.015 Urine Protein Trace Urine Glucose (UA) Negative Urine Ketones Negative Urine Blood Negative Urine Nitrite Positive H Ur Leukocyte Esterase Large (3+) H Urine RBC 0-2 Urine WBC >50 H Ur Squamous Epith Cells 0-2 Urine Bacteria 4+ Hyaline Casts 3-5 Urine Opiates Screen Not Detected Urine Fentanyl Screen Not Detected Ur Barbiturates Screen Not Detected Ur Phencyclidine Scrn Not Detected Ur Amphetamines Screen Not Detected U Benzodiazepines Scrn Not Detected Urine Cocaine Screen Not Detected U Marijuana (THC) Screen Not Detected Ethyl Alcohol COVID-19 (JG) COVID-19 Clin Com 02/22/22 02/23/22 02/23/22 20:18 04:30 04:30 WBC 6.1 RBC 4.09 L Hgb 12.0 L Hct 36.4 L MCV 89.0 MCH 29.3 MCHC 33.0 RDW 12.0 Plt Count 290 MPV 9.4 Immature Gran % (Auto) 0.3 Neut % (Auto) 62.7 Lymph % (Auto) 18.5 L Crosby % (Auto) 11.2 H Eos % (Auto) 6.6 H Baso % (Auto) 0.7 Lymph # (Auto) 1.1 L Crosby # (Auto) 0.7 Eos # (Auto) 0.4 Baso # (Auto) 0.0 Abs Immat Gran (auto) 0.02 Absolute Neuts (auto) 3.8 Absolute Nucleated RBC 0.000 Nucleated RBC % (auto) 0.0 D-Dimer High Sensitivty 371 Sodium 141 Potassium 3.6 D Chloride 107 Carbon Dioxide 26 Anion Gap 12 BUN 14 Creatinine 0.75 Estim Creat Clear Calc 95.5 Estimated GFR > 60 Random Glucose 112 Lactic Acid Calcium 8.9 D Magnesium Total Bilirubin Direct Bilirubin AST ALT Alkaline Phosphatase Troponin I High Sens Total Protein Albumin TSH Urine Color Urine Appearance Urine pH Ur Specific [place] Urine Protein Urine Glucose (UA) Urine Ketones Urine Blood Urine Nitrite Ur Leukocyte Esterase Urine RBC Urine WBC Ur Squamous Epith Cells Urine Bacteria Hyaline Casts Urine Opiates Screen Urine Fentanyl Screen Ur Barbiturates Screen Ur Phencyclidine Scrn Ur Amphetamines Screen U Benzodiazepines Scrn Urine Cocaine Screen U Marijuana (THC) Screen Ethyl Alcohol COVID-19 (JG) COVID-19 Clin Com Imaging Radiologist's impression: Impressions Head CT 02/22/22 17:18 IMPRESSION: No CT evidence of acute intracranial hemorrhage or edematous large vessel territorial infarction.. Chest CTA 02/23/22 05:35 IMPRESSION: No pulmonary embolism. Moderate emphysema. Bronchial wall thickening could be associated with acute or chronic small airways process. 0.6 cm right lower lobe pulmonary nodule. According to the UPDATED 2017 Fleischner Society recommendations, the advised follow-up imaging for a single 6-8 mm solid nodule is: LOW RISK PATIENT: CT at 6-12 months, then consider CT at 18-24 months. HIGH RISK PATIENT: CT at 6-12 months, then at 18-24 months. VTE: negative Assessment and Plan (1) A-fib: Status: Acute Patient present hospital with new onset atrial fibrillation with controlled rate most likely due to his chronic use of propranolol. Not sure if his presenting symptoms are related to atrial fibrillation at all. He is not aware of any other symptoms at a typically associated with atrial fibrillation. He has risk factors for atrial fibrillation including age and hypertension. Will assess echocardiogram which was already done. Continue propranolol for rate control but switching to nighttime given his symptoms of lightheadedness. Discussed below. Also CHADSVASc score of 3-4. Start oral anticoagulant therapy with Eliquis 5 mg b.i.d.. Discussed with the patient and is agreeable. (2) Lightheadedness: Status: Acute Patient with symptoms lightheadedness usually upright position with associated amnesia with feeling of warmth in his chest is most suggestive of orthostatic hypertension appears to be delayed orthostatic hypertension off aging. Need to check orthostatic blood pressure changes along with orthostatic blood pressure check after 5-10 minutes of standing. He does not participate in adequate oral hydration as strongly recommend him to increase his fluid intake. Also switching his propranolol to evening time. Advised to monitor blood pressure at home and maintain a log. He is advised when he gets the symptoms to seek sitting or supine position. I would still consider him having a neurology evaluation possible MRI to assess for any neurologic processes. Will follow up in the clinic after discharge. Will sign of the case. Procedures Date of Service Date of Service: 02/23/22
[2022-02-23] MEDS: Apixaban 5 MG TABLET PO ×2 (11:58→20:55)
--- NOTE | 2022-02-23 13:15 | HO.PM.IMPN ---
Subjective Subjective Date of Service: 02/23/22 Interval History: Seen and examined this morning Follow-up for new AFib Patient reports intermittent episodes of getting dizzy followed by confusion which has been ongoing over the past 6 months. No symptoms currently Review of Systems Review of Systems: Yes all other systems are reviewed and are negative Constitutional Constitutional: Denies chills and Denies fever(s) ENT Ears, Nose, Mouth, and Throat: Denies dizziness Cardiovascular Cardiovascular: Denies chest pain, Denies palpitations and Denies dyspnea Respiratory Respiratory: Denies cough and Denies dyspnea Neurologic Neurologic: Denies dizziness Endocrine Endocrine: Denies palpitations Physical Exam Vital Signs: Vital Signs: Last Vital Signs Temp 98.4 F 02/23/22 12:00 Pulse 99 02/23/22 12:41 Resp 20 02/23/22 12:00 BP 135/80 02/23/22 12:41 Pulse Ox 98 02/23/22 12:00 O2 Del Method 02/23/22 12:00 BMI result Body Mass Index 23.1 Const: General: cooperative, comfortable, no acute distress, alert and awake Nutritional Appearance: average body habitus Orientation/consciousness: patient oriented x3 Resp: Effort & Inspection: normal respiratory effort and able to speak in complete sentences Auscultation: clear to auscultation bilaterally Cardio: Other: irregular GI: Inspection: No distended Palpation (GI): Soft to palpation and nontender Neuro: General: patient oriented x3 and CN's II-XI intact bilaterally Extrem: General: Yes no pedal edema Objective Data Active Medications Apixaban (Apixaban 5 Mg Tablet) 5 mg PO BID [facility] Last Admin: 02/23/22 11:58 Dose: 5 mg Documented By: YI Atorvastatin Calcium (Atorvastatin Calcium 40 Mg Tablet) 40 mg PO DAILY [facility] Last Admin: 02/23/22 08:08 Dose: 40 mg Documented By: MAX Bupropion HCl (Bupropion Hcl Xl 150 Mg Tab.Er.24h) 150 mg PO DAILY [facility] Last Admin: 02/23/22 08:08 Dose: 150 mg Documented By: MAX Escitalopram Oxalate (Escitalopram Oxalate 20 Mg Tablet) 20 mg PO DAILY [facility] Last Admin: 02/23/22 08:08 Dose: 20 mg Documented By: MAX Finasteride (Finasteride 5 Mg Tablet) 5 mg PO DAILY [facility] Last Admin: 02/23/22 08:07 Dose: 5 mg Documented By: MAX Melatonin (Melatonin 3 Mg Tablet) 6 mg PO BEDTIME PRN PRN Reason: Insomnia Omeprazole (Omeprazole 20 Mg Capsule.Dr) 20 mg PO DAILY [facility] Last Admin: 02/23/22 08:07 Dose: 20 mg Documented By: MAX Pharmacy Consult (Consult Rx Perform Med Rec) 1 each MISCELLANE ONCE PRN PRN Reason: Consult order Propranolol HCl (Propranolol Hcl La 60 Mg Cap.Sa.24h) 60 mg PO BEDTIME [facility]; Protocol Senna (Sennosides 8.6 Mg Tablet) 17.2 mg PO BEDTIME PRN PRN Reason: Constipation Sodium Chloride (0.9 % Sodium Chloride Flush 3 Ml Syringe) 3 ml IVFLUSH QSHIFT [facility] Last Admin: 02/23/22 08:08 Dose: 3 ml Documented By: MAX Vitamin D (Cholecalciferol (Vitamin D3) 25 Mcg Tablet) 25 mcg PO DAILY [facility] Last Admin: 02/23/22 08:07 Dose: 25 mcg Documented By: MAX Labs CBC & Chem 7: 02/23/22 04:30 02/23/22 04:30 Labs: Laboratory Results - last 24 hr 02/22/22 02/22/22 02/22/22 16:04 16:04 16:04 MCV 90.1 MCH 29.3 MCHC 32.6 RDW 12.1 Plt Count 318 MPV 9.4 Immature Gran % (Auto) 0.2 Neut % (Auto) 69.8 Lymph % (Auto) 16.1 L [place] % (Auto) 7.2 Eos % (Auto) 6.1 H Baso % (Auto) 0.6 Lymph # (Auto) 0.9 L [place] # (Auto) 0.4 Eos # (Auto) 0.3 Baso # (Auto) 0.0 Abs Immat Gran (auto) 0.01 Absolute Neuts (auto) 3.8 Absolute Nucleated RBC 0.000 Nucleated RBC % (auto) 0.0 D-Dimer High Sensitivty Anion Gap 14 Estim Creat Clear Calc 87.3 Estimated GFR > 60 Random Glucose 136 H D Lactic Acid 1.1 Calcium 9.5 Magnesium 2.1 Total Bilirubin 0.8 Direct Bilirubin 0.4 AST 14 ALT 11 Alkaline Phosphatase 109 Total Protein 7.0 Albumin 3.9 TSH 0.88 Urine Color Urine Appearance Urine pH Ur Specific [place] Urine Protein Urine Glucose (UA) Urine Ketones Urine Blood Urine Nitrite Ur Leukocyte Esterase Urine RBC Urine WBC Ur Squamous Epith Cells Urine Bacteria Hyaline Casts Urine Opiates Screen Urine Fentanyl Screen Ur Barbiturates Screen Ur Phencyclidine Scrn Ur Amphetamines Screen U Benzodiazepines Scrn Urine Cocaine Screen U Marijuana (THC) Screen Ethyl Alcohol COVID-19 (JG) COVID-19 Clin Com 02/22/22 02/22/22 02/22/22 16:04 16:04 19:19 MCV MCH MCHC RDW Plt Count MPV Immature Gran % (Auto) Neut % (Auto) Lymph % (Auto) [place] % (Auto) Eos % (Auto) Baso % (Auto) Lymph # (Auto) [place] # (Auto) Eos # (Auto) Baso # (Auto) Abs Immat Gran (auto) Absolute Neuts (auto) Absolute Nucleated RBC Nucleated RBC % (auto) D-Dimer High Sensitivty Anion Gap Estim Creat Clear Calc Estimated GFR Random Glucose Lactic Acid Calcium Magnesium Total Bilirubin Direct Bilirubin AST ALT Alkaline Phosphatase Total Protein Albumin TSH Urine Color Yellow Urine Appearance Cloudy Urine pH 6.0 Ur Specific [place] 1.015 Urine Protein Trace Urine Glucose (UA) Negative Urine Ketones Negative Urine Blood Negative Urine Nitrite Positive H Ur Leukocyte Esterase Large (3+) H Urine RBC 0-2 Urine WBC >50 H Ur Squamous Epith Cells 0-2 Urine Bacteria 4+ Hyaline Casts 3-5 Urine Opiates Screen Urine Fentanyl Screen Ur Barbiturates Screen Ur Phencyclidine Scrn Ur Amphetamines Screen U Benzodiazepines Scrn Urine Cocaine Screen U Marijuana (THC) Screen Ethyl Alcohol < 10 COVID-19 (JG) Negative COVID-19 Clin Com See Note 02/22/22 02/22/22 02/23/22 19:19 20:18 04:30 MCV 89.0 MCH 29.3 MCHC 33.0 RDW 12.0 Plt Count 290 MPV 9.4 Immature Gran % (Auto) 0.3 Neut % (Auto) 62.7 Lymph % (Auto) 18.5 L [place] % (Auto) 11.2 H Eos % (Auto) 6.6 H Baso % (Auto) 0.7 Lymph # (Auto) 1.1 L [place] # (Auto) 0.7 Eos # (Auto) 0.4 Baso # (Auto) 0.0 Abs Immat Gran (auto) 0.02 Absolute Neuts (auto) 3.8 Absolute Nucleated RBC 0.000 Nucleated RBC % (auto) 0.0 D-Dimer High Sensitivty 371 Anion Gap Estim Creat Clear Calc Estimated GFR Random Glucose Lactic Acid Calcium Magnesium Total Bilirubin Direct Bilirubin AST ALT Alkaline Phosphatase Total Protein Albumin TSH Urine Color Urine Appearance Urine pH Ur Specific [place] Urine Protein Urine Glucose (UA) Urine Ketones Urine Blood Urine Nitrite Ur Leukocyte Esterase Urine RBC Urine WBC Ur Squamous Epith Cells Urine Bacteria Hyaline Casts Urine Opiates Screen Not Detected Urine Fentanyl Screen Not Detected Ur Barbiturates Screen Not Detected Ur Phencyclidine Scrn Not Detected Ur Amphetamines Screen Not Detected U Benzodiazepines Scrn Not Detected Urine Cocaine Screen Not Detected U Marijuana (THC) Screen Not Detected Ethyl Alcohol COVID-19 (JG) COVID-19 [facility] Com 02/23/22 04:30 MCV MCH MCHC RDW Plt Count MPV Immature Gran % (Auto) Neut % (Auto) Lymph % (Auto) [place] % (Auto) Eos % (Auto) Baso % (Auto) Lymph # (Auto) [place] # (Auto) Eos # (Auto) Baso # (Auto) Abs Immat Gran (auto) Absolute Neuts (auto) Absolute Nucleated RBC Nucleated RBC % (auto) D-Dimer High Sensitivty Anion Gap 12 Estim Creat Clear Calc 95.5 Estimated GFR > 60 Random Glucose 112 Lactic Acid Calcium 8.9 D Magnesium Total Bilirubin Direct Bilirubin AST ALT Alkaline Phosphatase Total Protein Albumin TSH Urine Color Urine Appearance Urine pH Ur Specific [place] Urine Protein Urine Glucose (UA) Urine Ketones Urine Blood Urine Nitrite Ur Leukocyte Esterase Urine RBC Urine WBC Ur Squamous Epith Cells Urine Bacteria Hyaline Casts Urine Opiates Screen Urine Fentanyl Screen Ur Barbiturates Screen Ur Phencyclidine Scrn Ur Amphetamines Screen U Benzodiazepines Scrn Urine Cocaine Screen U Marijuana (THC) Screen Ethyl Alcohol COVID-19 (JG) COVID-19 Clin Com Assessment and Plan (1) A-fib: Status: Acute Plan 77-year-old male with a past medical history of hypertension, hyperlipidemia, anxiety, depression, osteoarthritis, GERD presented to the hospital today with a chief complaint of chest pain. New onset AFib: Rate controlled echo with preserved LFEV, severely dilated left atrium seen by cardiology - recommend to change propanolol to bedtime due to concern for dizziness on standing; recommend to start full anticoagulation with Eliquis -monitor on telemetry overnight Brief episode of amnesia/confused associated with dizziness brain CT negative. no focal deficits Denies any seizure-like activity. Symptoms ongoing for 6 months. -orthostatic blood pressure pending -neurology consult pending History of hypertension/hyperlipidemia: Continue home medications BPH with h/o recurrent UTI UA positive but pt asymptomatic follow urine culture -outpatient follow-up with Urology -continue finasteride DVT prophylaxis: Subcu heparin Code status: Full code attending - dr. vega Quality Stroke Does the patient have a stroke diagnosis?: No VTE Prior VTE?: No VTE Risk Level:: Medical - moderate - high VTE Device Contraindication: Treatment Not Indicated VTE Drug Contraindication: N/A - Med Ordered
--- NOTE | 2022-02-23 15:54 | P.CNNE_ITS ---
History of Present Illness Data of Consult Service Date: 02/23/22 Primary Care Provider: Chris Walker MD HPI Reason for consult: Episodes 77 years old man with remote history of excessive alcohol drinking started h aving episodes about a year ago. These episodes would not have any trigger and what happened suddenly and would typically stop him in his tracks. He said that he would be dizzy but not like spinning and it was a difficult type of dizziness to describe. This would make him confused and sometime he would not be able to talk. It would last few seconds to maybe a minute and then he would not be co mpletely well. He had 1 of these episodes when he was noted to be confused not knowing where he was and was admitted. Typically he would have epigastric discomfort like he has taken a cup of coffee. Review of Systems Review of Systems: No recent head trauma cold or flu-like illness PMFSH Past Medical History Medical History Bilateral knee pain Osteoarthritis of left knee Rotator cuff arthropathy of both shoulders Surgical History Surgical History Status post right knee replacement Social History Social History Household Members: Spouse Housing: House Do you presently have visiting nurse or other home services: No Alcohol intake: former Patient Tobacco Use Status: Former Tobacco user Smoked in Last 30 Days: No Use of substances other than those prescribed or required for medical reasons: No Any prior treatment program specific to substance use: No Have you been hit, kicked, punched, or otherwise hurt by someone within the past year? If so, by whom?: No Do you feel safe in your current relationship?: Yes Is there a partner from a previous relationship who is making you feel unsafe now?: No Advance Directives: No Advance Directives Information Provided: No Do you have thoughts of harming others: None Do you have a plan to hurt others: No Plan Recently lost weight without trying: No How much weight loss: Not applicable Eating poorly because of decreased appetite: No Nutrition screen score: 0 Nutrition Risks: No Nutritional Risk Poor oral hygiene: No Current occupation: [employer] - right handed Meds Allergies Allergy/AdvReac Type Severity Reaction Status Date / Time indomethacin [From INDOCIN] Allergy Intermediate RASH Verified 08/02/20 11:12 Sulfa (Sulfonamide Allergy Intermediate BLISTERS, Verified 08/02/20 11:12 Antibiotics) sore on [SULFA (SULFONAMIDE the end of ANTIBIOTICS)] his penis acetaminophen [Percocet] Allergy Unknown vomiting Verified 08/02/20 11:12 oxycodone [OXYCODONE] AdvReac Intermediate VOMITING/RA Verified 08/02/20 11:12 SH Active Medications: Current Medications Apixaban (Apixaban 5 Mg Tablet) 5 mg PO BID [facility] Last Admin: 02/23/22 11:58 Dose: 5 mg Atorvastatin Calcium (Atorvastatin Calcium 40 Mg Tablet) 40 mg PO DAILY [facility] Last Admin: 02/23/22 08:08 Dose: 40 mg Bupropion HCl (Bupropion Hcl Xl 150 Mg Tab.Er.24h) 150 mg PO DAILY [facility] Last Admin: 02/23/22 08:08 Dose: 150 mg Escitalopram Oxalate (Escitalopram Oxalate 20 Mg Tablet) 20 mg PO DAILY [facility] Last Admin: 02/23/22 08:08 Dose: 20 mg Finasteride (Finasteride 5 Mg Tablet) 5 mg PO DAILY [facility] Last Admin: 02/23/22 08:07 Dose: 5 mg Melatonin (Melatonin 3 Mg Tablet) 6 mg PO BEDTIME PRN PRN Reason: Insomnia Omeprazole (Omeprazole 20 Mg Capsule.Dr) 20 mg PO DAILY [facility] Last Admin: 02/23/22 08:07 Dose: 20 mg Pharmacy Consult (Consult Rx Perform Med Rec) 1 each MISCELLANE ONCE PRN PRN Reason: Consult order Propranolol HCl (Propranolol Hcl La 60 Mg Cap.Sa.24h) 60 mg PO BEDTIME [facility]; Protocol Senna (Sennosides 8.6 Mg Tablet) 17.2 mg PO BEDTIME PRN PRN Reason: Constipation Sodium Chloride (0.9 % Sodium Chloride Flush 3 Ml Syringe) 3 ml IVFLUSH QSHIFT [facility] Last Admin: 02/23/22 08:08 Dose: 3 ml Vitamin D (Cholecalciferol (Vitamin D3) 25 Mcg Tablet) 25 mcg PO DAILY [facility] Last Admin: 02/23/22 08:07 Dose: 25 mcg Home Medications Medication Instructions Recorded Confirmed Last Taken Type atorvastatin 40 mg tablet 40 mg PO DAILY 05/10/20 02/23/22 Unknown History omeprazole 20 mg capsule,delayed 20 mg PO DAILY 05/10/20 02/23/22 Unknown History release bupropion HCl 150 mg 24 hr tablet, 150 mg PO QAM 01/19/22 02/23/22 Unknown History extended release cholecalciferol (vitamin D3) 25 25 mcg PO DAILY 01/19/22 02/23/22 Unknown History mcg (1,000 unit) tablet escitalopram oxalate 20 mg tablet 20 mg PO DAILY 01/19/22 02/23/22 Unknown History propranolol 60 mg capsule,24 60 mg PO DAILY 01/19/22 02/23/22 Unknown History hr,extended release finasteride 5 mg tablet 5 mg PO DAILY 02/23/22 02/23/22 Unknown History Physical Exam Vital Signs: Vital Signs: Last Vital Signs Temp 98.4 F 02/23/22 12:00 Pulse 99 02/23/22 12:41 Resp 20 02/23/22 12:00 BP 135/80 02/23/22 12:41 Pulse Ox 98 02/23/22 12:00 O2 Del Method 02/23/22 12:00 BMI result Body Mass Index 23.1 Neuro: Other: He was alert and awake with normal spontaneity of speech fluency comprehension and affect. Face was symmetrical. Visual higgins are full. There was no focal arm or leg weakness. There was mild bilateral [id number] ataxia. Deep tendon reflexes were trace to absent. Speech was normal. Results Labs CBC & Chem 7: 02/23/22 04:30 02/23/22 04:30 Labs: Short CBC 02/22/22 02/23/22 Range/Units 16:04 04:30 WBC 5.5 6.1 (4.8-10.8) X10*3/uL Hgb 13.0 L 12.0 L (14.0-18.0) g/dl Hct 39.9 L 36.4 L (42.0-52.0) % Plt Count 318 290 (160-400) X10*3/uL BMP 02/22/22 02/23/22 16:04 04:30 Sodium 142 141 Potassium 4.9 3.6 D Chloride 106 107 Carbon Dioxide 27 26 BUN 16 14 Creatinine 0.82 0.75 Calcium 9.5 8.9 D Liver Function 02/22/22 Range/Units 16:04 Total Bilirubin 0.8 (0.0-1.0) mg/dL Direct Bilirubin 0.4 (0.0-0.5) mg/dL AST 14 (5-37) U/L ALT 11 (0-40) U/L Alkaline Phosphatase 109 (39-117) U/L Albumin 3.9 (3.5-5.0) g/dL Urine 02/22/22 Range/Units 19:19 Urine Color Yellow Urine Appearance Cloudy Urine pH 6.0 (5.0-9.0) Ur Specific [place] 1.015 (1.005-1.025) Urine Protein Trace (Neg-Trace) mg/dL Urine Glucose (UA) Negative (Negative) mg/dL Noncontrast head CT revealed mild cerebral atrophy and mild chronic microvascular ischemic changes. Microbiology Microbiology Results: Microbiology 02/22/22 19:51 Urine clean catch - Urine zhang top Urine Culture - Preliminary Gram negative janee Assessment and Plan (1) Complex partial seizure disorder: Status: Acute 77 years old man who probably was suffering from complex partial seizure disorder. I recommend an EEG and starting him on levetiracetam 500 mg twice a day. He should avoid driving and activities that could put his life in danger until this condition is controled. Procedures Date of Service Date of Service: 02/23/22
[2022-02-24] VITALS (9 sets, daily range): BP systolic 102–144; BP diastolic 62–78; PULSE 70–87; RESP 14–20; TEMP 36.4–37.1; O2SAT 95–98
[2022-02-24] MEDS: buPROPion HCl XL 150 MG TAB.ER.24H PO (08:52)
[2022-02-24] MEDS: Atorvastatin Calcium 40 MG TABLET PO (08:52)
[2022-02-24] MEDS: Finasteride 5 MG TABLET PO (08:53)
[2022-02-24] MEDS: Escitalopram Oxalate 20 MG TABLET PO (08:53)
[2022-02-24] MEDS: Apixaban 5 MG TABLET PO ×2 (08:53→20:56)
[2022-02-24] MEDS: Omeprazole 20 MG CAPSULE.DR PO (08:53)
[2022-02-24] MEDS: Cholecalciferol (Vitamin D3) 25 MCG TABLET PO (08:53)
[2022-02-24] MEDS: 0.9 % Sodium Chloride Flush 3 ML SYRINGE IVFLUSH ×3 (08:53→20:57)
--- NOTE | 2022-02-24 13:10 | MHC.CM.PN ---
met with pt who lives with his they had no services prior to admisison and do not anticipate needing services when dcd covid vX X 4 PLAN HOME NO SERVCEIS
[2022-02-24] MEDS: levETIRAcetam 250 MG TABLET PO ×2 (13:14→20:56)
[2022-02-24] MEDS: 0.9 % Sodium Chloride 1,000 ML 100 ML IVCONT ×3 (13:39→23:51)
--- NOTE | 2022-02-24 14:23 | P.PNIM_ITS ---
Subjective Subjective Date of Service: 02/24/22 Interval History: Seen and examined this morning Follow-up for AFib with, episodes of confusion No events overnight No specific complaints this morning. Feeling well Review of Systems Review of Systems: Yes all other systems are reviewed and are negative Constitutional Constitutional: Denies chills and Denies fever(s) ENT Ears, Nose, Mouth, and Throat: Denies dizziness Cardiovascular Cardiovascular: Denies chest pain and Denies dyspnea Respiratory Respiratory: Denies dyspnea Gastrointestinal Gastrointestinal: Denies abdominal pain Neurologic Neurologic: Denies dizziness Physical Exam Vital Signs: Vital Signs: Last Vital Signs Temp 97.5 F 02/24/22 11:35 Pulse 84 02/24/22 11:35 Resp 18 02/24/22 11:35 BP 102/66 02/24/22 11:35 Pulse Ox 98 02/24/22 11:35 O2 Del Method 02/24/22 11:35 BMI result Body Mass Index 23.1 Const: General: cooperative, comfortable, no acute distress, alert and awake Nutritional Appearance: average body habitus Orientation/consciousness: patient oriented x3 Resp: Effort & Inspection: normal respiratory effort and able to speak in complete sentences Auscultation: clear to auscultation bilaterally Cardio: Other: irregular GI: Inspection: No distended Palpation (GI): Soft to palpation and nontender Neuro: General: patient oriented x3 and CN's II-XI intact bilaterally Extrem: General: Yes no pedal edema Objective Data Active Medications Apixaban (Apixaban 5 Mg Tablet) 5 mg PO BID [facility] Last Admin: 02/24/22 08:53 Dose: 5 mg Documented By: DANIEL Atorvastatin Calcium (Atorvastatin Calcium 40 Mg Tablet) 40 mg PO DAILY [facility] Last Admin: 02/24/22 08:52 Dose: 40 mg Documented By: DANIEL Bupropion HCl (Bupropion Hcl Xl 150 Mg Tab.Er.24h) 150 mg PO DAILY [facility] Last Admin: 02/24/22 08:52 Dose: 150 mg Documented By: DANIEL Escitalopram Oxalate (Escitalopram Oxalate 20 Mg Tablet) 20 mg PO DAILY [facility] Last Admin: 02/24/22 08:53 Dose: 20 mg Documented By: DANIEL Finasteride (Finasteride 5 Mg Tablet) 5 mg PO DAILY [facility] Last Admin: 02/24/22 08:53 Dose: 5 mg Documented By: DANIEL Sodium Chloride (Ns) 500 mls @ 100 mls/hr IVCONT .Q5H [facility] Last Admin: 02/24/22 13:39 Dose: 100 mls/hr Documented By: DANIEL Levetiracetam (Levetiracetam 250 Mg Tablet) 250 mg PO BID [facility] Last Admin: 02/24/22 13:14 Dose: 250 mg Documented By: DANIEL Melatonin (Melatonin 3 Mg Tablet) 6 mg PO BEDTIME PRN PRN Reason: Insomnia Omeprazole (Omeprazole 20 Mg Capsule.Dr) 20 mg PO DAILY [facility] Last Admin: 02/24/22 08:53 Dose: 20 mg Documented By: DANIEL Pharmacy Consult (Consult Rx Perform Med Rec) 1 each MISCELLANE ONCE PRN PRN Reason: Consult order Propranolol HCl (Propranolol Hcl La 60 Mg Cap.Sa.24h) 60 mg PO BEDTIME [facility]; Protocol Senna (Sennosides 8.6 Mg Tablet) 17.2 mg PO BEDTIME PRN PRN Reason: Constipation Sodium Chloride (0.9 % Sodium Chloride Flush 3 Ml Syringe) 3 ml IVFLUSH QSHIFT [facility] Last Admin: 02/24/22 08:53 Dose: 3 ml Documented By: DANIEL Vitamin D (Cholecalciferol (Vitamin D3) 25 Mcg Tablet) 25 mcg PO DAILY [facility] Last Admin: 02/24/22 08:53 Dose: 25 mcg Documented By: DANIEL Labs CBC & Chem 7: 02/23/22 04:30 02/23/22 04:30 Microbiology Microbiology Results: Microbiology 02/22/22 19:51 Urine Culture - Final Urine clean catch - Urine zhang top Escherichia coli 02/22/22 16:38 Blood Culture - Preliminary Blood - Venous No growth after 24 hours. 02/22/22 16:39 Blood Culture - Preliminary Blood - Venous No growth after 24 hours. Assessment and Plan (1) Complex partial seizure disorder: Status: Acute (2) A-fib: Status: Acute (3) Recurrent UTI (urinary tract infection): Status: Acute Plan 77-year-old male with a past medical history of hypertension, hyperlipidemia, anxiety, depression, osteoarthritis, GERD presented to the hospital today with a chief complaint of chest pain. New onset AFib: Rate controlled echo with preserved LFEV, severely dilated left atrium seen by cardiology - recommend to change propanolol to bedtime due to concern for dizziness on standing; recommend to start full anticoagulation with Eliquis -monitor on telemetry overnight Brief episode of amnesia/confused associated with dizziness brain CT negative. no focal deficits. Symptoms ongoing for 6 months. -orthostatics positive -seen by Neurology, concern over complex partial seizures, recommend EEG and start Keppra 500 b.i.d. -EEG pending Orthostatic hypotension gentle IVF -repeat orthostatic blood pressures in the morning History of hypertension/hyperlipidemia: Continue home medications BPH with h/o recurrent UTI urine culture growing e.coli -outpatient follow-up with Urology -continue finasteride -start IV ceftriaxone DVT prophylaxis: Subcu heparin Code status: Full code attending - dr. Marroquin Requires ongoing inpatient hospitalization for close monitoring of blood pressure, need for EEG Quality Stroke Does the patient have a stroke diagnosis?: No VTE Prior VTE?: No VTE Risk Level:: Medical - moderate - high VTE Device Contraindication: Treatment Not Indicated VTE Drug Contraindication: N/A - Med Ordered
[2022-02-24] MEDS: cefTRIAXone sodium 1 GM in 0.9 % Sodium Chloride 50 ML IV (16:45)
[2022-02-24] MEDS: Propranolol HCL LA 60 MG CAP.SA.24H PO (20:56)
[2022-02-25] VITALS (8 sets, daily range): BP systolic 100–138; BP diastolic 63–80; PULSE 62–83; RESP 14–18; TEMP 36.1–36.9; O2SAT 90–96
[2022-02-25] MEDS: 0.9 % Sodium Chloride 1,000 ML 100 ML IVCONT ×4 (07:22→20:10)
[2022-02-25] MEDS: Finasteride 5 MG TABLET PO (07:22)
[2022-02-25] MEDS: Escitalopram Oxalate 20 MG TABLET PO (07:23)
[2022-02-25] MEDS: levETIRAcetam 250 MG TABLET PO ×2 (07:23→20:08)
[2022-02-25] MEDS: Atorvastatin Calcium 40 MG TABLET PO (07:23)
[2022-02-25] MEDS: buPROPion HCl XL 150 MG TAB.ER.24H PO (07:23)
[2022-02-25] MEDS: Cholecalciferol (Vitamin D3) 25 MCG TABLET PO (07:23)
[2022-02-25] MEDS: Omeprazole 20 MG CAPSULE.DR PO (07:23)
[2022-02-25] MEDS: 0.9 % Sodium Chloride Flush 3 ML SYRINGE IVFLUSH ×3 (07:23→20:08)
[2022-02-25] MEDS: Apixaban 5 MG TABLET PO ×2 (07:23→20:08)
--- NOTE | 2022-02-25 14:11 | P.PNIM_ITS ---
Subjective Subjective Date of Service: 02/25/22 Interval History: Follow-up for AFib with, episodes of confusion No events overnight No specific complaints this morning. Feeling well Review of Systems Review of Systems: Yes all other systems are reviewed and are negative Constitutional Constitutional: Denies chills and Denies fever(s) ENT Ears, Nose, Mouth, and Throat: Denies dizziness Cardiovascular Cardiovascular: Denies chest pain and Denies dyspnea Respiratory Respiratory: Denies dyspnea Gastrointestinal Gastrointestinal: Denies abdominal pain Neurologic Neurologic: Denies dizziness Physical Exam Vital Signs: Vital Signs: Last Vital Signs Temp 97.0 F 02/25/22 12:00 Pulse 63 02/25/22 12:00 Resp 18 02/25/22 07:31 BP 100/63 02/25/22 12:00 Pulse Ox 95 02/25/22 12:00 O2 Del Method 02/25/22 03:35 BMI result Body Mass Index 23.1 Appearing in no acute distress LSCTA heart regular rate rhythm, clear S1, S2 positive bowel sounds, abdomen is soft, nontender neuro patient is alert x3, no focal deficits Objective Data Active Medications Apixaban (Apixaban 5 Mg Tablet) 5 mg PO BID [facility] Last Admin: 02/25/22 07:23 Dose: 5 mg Documented By: DANIEL Atorvastatin Calcium (Atorvastatin Calcium 40 Mg Tablet) 40 mg PO DAILY [facility] Last Admin: 02/25/22 07:23 Dose: 40 mg Documented By: DANIEL Bupropion HCl (Bupropion Hcl Xl 150 Mg Tab.Er.24h) 150 mg PO DAILY [facility] Last Admin: 02/25/22 07:23 Dose: 150 mg Documented By: DANIEL Escitalopram Oxalate (Escitalopram Oxalate 20 Mg Tablet) 20 mg PO DAILY [facility] Last Admin: 02/25/22 07:23 Dose: 20 mg Documented By: DANIEL Finasteride (Finasteride 5 Mg Tablet) 5 mg PO DAILY [facility] Last Admin: 02/25/22 07:22 Dose: 5 mg Documented By: DANIEL Sodium Chloride (Ns) 500 mls @ 100 mls/hr IVCONT .Q5H [facility] Last Admin: 02/25/22 11:57 Dose: 100 mls/hr Documented By: DANIEL Ceftriaxone Sodium 1 gm/ (Sodium Chloride) 50 mls @ 100 mls/hr IV Q24H [facility] Last Infusion: 02/24/22 17:17 Dose: 0 mls/hr Documented By: DANIEL Levetiracetam (Levetiracetam 250 Mg Tablet) 250 mg PO BID [facility] Last Admin: 02/25/22 07:23 Dose: 250 mg Documented By: DANIEL Melatonin (Melatonin 3 Mg Tablet) 6 mg PO BEDTIME PRN PRN Reason: Insomnia Omeprazole (Omeprazole 20 Mg Capsule.Dr) 20 mg PO DAILY [facility] Last Admin: 02/25/22 07:23 Dose: 20 mg Documented By: DANIEL Pharmacy Consult (Consult Rx Perform Med Rec) 1 each MISCELLANE ONCE PRN PRN Reason: Consult order Propranolol HCl (Propranolol Hcl La 60 Mg Cap.Sa.24h) 60 mg PO BEDTIME [facility]; Protocol Last Admin: 02/24/22 20:56 Dose: 60 mg Documented By: NAUN Senna (Sennosides 8.6 Mg Tablet) 17.2 mg PO BEDTIME PRN PRN Reason: Constipation Sodium Chloride (0.9 % Sodium Chloride Flush 3 Ml Syringe) 3 ml IVFLUSH QSHIFT [facility] Last Admin: 02/25/22 07:23 Dose: 3 ml Documented By: DANIEL Vitamin D (Cholecalciferol (Vitamin D3) 25 Mcg Tablet) 25 mcg PO DAILY [facility] Last Admin: 02/25/22 07:23 Dose: 25 mcg Documented By: DANIEL Labs CBC & Chem 7: 02/23/22 04:30 02/23/22 04:30 Microbiology Microbiology Results: Microbiology 02/22/22 16:38 Blood Culture - Preliminary Blood - Venous No growth after 48 hours. 02/22/22 16:39 Blood Culture - Preliminary Blood - Venous No growth after 48 hours. Assessment and Plan (1) Complex partial seizure disorder: Status: Acute (2) A-fib: Status: Acute (3) Recurrent UTI (urinary tract infection): Status: Acute Plan 77-year-old male with a past medical history of hypertension, hyperlipidemia, a nxiety, depression, osteoarthritis, GERD presented to the hospital today with a chief complaint of chest pain. E coli UTI Continue Rocephin New onset AFib Rate controlled echo with preserved LFEV, severely dilated left atrium seen by cardiology - recommend to change propanolol to bedtime due to concern for dizziness on standing; recommend to start full anticoagulation with Eliquis monitor on telemetry overnight Brief episode of amnesia/confused. No further episodes during admission associated with dizziness brain CT negative. no focal deficits. Symptoms ongoing for 6 months. orthostatics positive seen by Neurology, concern over complex partial seizures, recommend EEG and start Keppra 500 b.i.d. EEG pending Orthostatic hypotension gentle IVF repeat orthostatic blood pressures in the morning History of hypertension/hyperlipidemia Continue home medications BPH with h/o recurrent UTI urine culture growing e.coli outpatient follow-up with Urology continue finasteride start IV ceftriaxone DVT prophylaxis: Subcu heparin Code status: Full code attending - Dr. Edmonds Requires ongoing inpatient hospitalization for close monitoring of blood pressure, need for EEG Quality Stroke Does the patient have a stroke diagnosis?: No VTE Prior VTE?: No VTE Risk Level:: Medical - moderate - high VTE Device Contraindication: Treatment Not Indicated VTE Drug Contraindication: N/A - Med Ordered
[2022-02-25] MEDS: cefTRIAXone sodium 1 GM in 0.9 % Sodium Chloride 50 ML IV (15:24)
[2022-02-25] MEDS: Propranolol HCL LA 60 MG CAP.SA.24H PO (20:08)
[2022-02-26] VITALS (8 sets, daily range): BP systolic 129–149; BP diastolic 61–89; PULSE 62–86; RESP 16–18; TEMP 36.2–36.7; O2SAT 95–98
[2022-02-26] MEDS: 0.9 % Sodium Chloride 1,000 ML 100 ML IVCONT (06:23)
[2022-02-26] MEDS: Atorvastatin Calcium 40 MG TABLET PO (09:36)
[2022-02-26] MEDS: Finasteride 5 MG TABLET PO (09:36)
[2022-02-26] MEDS: levETIRAcetam 250 MG TABLET PO ×2 (09:36→20:41)
[2022-02-26] MEDS: buPROPion HCl XL 150 MG TAB.ER.24H PO (09:36)
[2022-02-26] MEDS: Escitalopram Oxalate 20 MG TABLET PO (09:36)
[2022-02-26] MEDS: Cholecalciferol (Vitamin D3) 25 MCG TABLET PO (09:36)
[2022-02-26] MEDS: Apixaban 5 MG TABLET PO ×2 (09:36→20:41)
[2022-02-26] MEDS: Omeprazole 20 MG CAPSULE.DR PO (09:36)
--- NOTE | 2022-02-26 09:54 | HO.PM.IMPN ---
Subjective Subjective Date of Service: 02/26/22 Interval History: Follow-up for AFib onset seizures No events overnight No specific complaints this morning. Feeling well Review of Systems Review of Systems: Yes all other systems are reviewed and are negative Constitutional Constitutional: Denies chills and Denies fever(s) ENT Ears, Nose, Mouth, and Throat: Denies dizziness Cardiovascular Cardiovascular: Denies chest pain and Denies dyspnea Respiratory Respiratory: Denies dyspnea Gastrointestinal Gastrointestinal: Denies abdominal pain Neurologic Neurologic: Denies dizziness Physical Exam Vital Signs: Vital Signs: Last Vital Signs Temp 97.4 F 02/26/22 07:55 Pulse 64 02/26/22 07:55 Resp 17 02/26/22 07:55 BP 139/84 02/26/22 07:55 Pulse Ox 96 02/26/22 07:55 O2 Del Method 02/26/22 07:55 FiO2 97 02/25/22 15:51 BMI result Body Mass Index 23.1 Appearing in no acute distress lung sounds are clear to auscultation heart regular rate rhythm, clear S1, S2 positive bowel sounds, abdomen is soft, nontender neuro patient is alert x3, no focal deficits Objective Data Active Medications Apixaban (Apixaban 5 Mg Tablet) 5 mg PO BID [facility] Last Admin: 02/26/22 09:36 Dose: 5 mg Documented By: EMILY Atorvastatin Calcium (Atorvastatin Calcium 40 Mg Tablet) 40 mg PO DAILY [facility] Last Admin: 02/26/22 09:36 Dose: 40 mg Documented By: EMILY Bupropion HCl (Bupropion Hcl Xl 150 Mg Tab.Er.24h) 150 mg PO DAILY [facility] Last Admin: 02/26/22 09:36 Dose: 150 mg Documented By: EMILY Escitalopram Oxalate (Escitalopram Oxalate 20 Mg Tablet) 20 mg PO DAILY [facility] Last Admin: 02/26/22 09:36 Dose: 20 mg Documented By: EMILY Finasteride (Finasteride 5 Mg Tablet) 5 mg PO DAILY [facility] Last Admin: 02/26/22 09:36 Dose: 5 mg Documented By: EMILY Sodium Chloride (Ns) 500 mls @ 100 mls/hr IVCONT .Q5H [facility] Last Admin: 02/26/22 09:34 Dose: Not Given Documented By: EMILY Non-Admin Reason: IV Running Ceftriaxone Sodium 1 gm/ (Sodium Chloride) 50 mls @ 100 mls/hr IV Q24H [facility] Last Infusion: 02/25/22 16:18 Dose: 0 mls/hr Documented By: DANIEL Levetiracetam (Levetiracetam 250 Mg Tablet) 250 mg PO BID [facility] Last Admin: 02/26/22 09:36 Dose: 250 mg Documented By: EMILY Melatonin (Melatonin 3 Mg Tablet) 6 mg PO BEDTIME PRN PRN Reason: Insomnia Omeprazole (Omeprazole 20 Mg Capsule.Dr) 20 mg PO DAILY [facility] Last Admin: 02/26/22 09:36 Dose: 20 mg Documented By: EMILY Pharmacy Consult (Consult Rx Perform Med Rec) 1 each MISCELLANE ONCE PRN PRN Reason: Consult order Propranolol HCl (Propranolol Hcl La 60 Mg Cap.Sa.24h) 60 mg PO BEDTIME [facility]; Protocol Last Admin: 02/25/22 20:08 Dose: 60 mg Documented By: NAUN Senna (Sennosides 8.6 Mg Tablet) 17.2 mg PO BEDTIME PRN PRN Reason: Constipation Sodium Chloride (0.9 % Sodium Chloride Flush 3 Ml Syringe) 3 ml IVFLUSH QSHIFT [facility] Last Admin: 02/26/22 09:35 Dose: Not Given Documented By: EMILY Non-Admin Reason: IV Running Vitamin D (Cholecalciferol (Vitamin D3) 25 Mcg Tablet) 25 mcg PO DAILY [facility] Last Admin: 02/26/22 09:36 Dose: 25 mcg Documented By: EMILY Labs CBC & Chem 7: 02/23/22 04:30 02/23/22 04:30 Assessment and Plan (1) Complex partial seizure disorder: Status: Acute (2) A-fib: Status: Acute (3) Recurrent UTI (urinary tract infection): Status: Acute Plan 77-year-old male with a past medical history of hypertension, hyperlipidemia, anxiety, depression, osteoarthritis, GERD presented to the hospital today with a chief complaint of chest pain. E coli UTI Continue Rocephin New onset AFib Rate controlled echo with preserved LFEV, severely dilated left atrium seen by cardiology - recommend to change propanolol to bedtime due to concern for dizziness on standing; recommend to start full anticoagulation with Eliquis monitor on telemetry overnight Brief episode of amnesia/confused. No further episodes during admission associated with dizziness brain CT negative. no focal deficits. Symptoms ongoing for 6 months. orthostatics positive seen by Neurology, concern over complex partial seizures, recommend EEG and start Keppra 500 b.i.d. EEG pending Orthostatic hypotension treated with IVF, stopped repeat orthostatic blood pressures daily History of hypertension/hyperlipidemia Continue home medications BPH with h/o recurrent UTI urine culture growing e.coli outpatient follow-up with Urology continue finasteride start IV ceftriaxone DVT prophylaxis: Subcu heparin Code status: Full code attending - Dr. Edmonds Requires ongoing inpatient hospitalization for close monitoring of blood pressure, need for EEG Quality Stroke Does the patient have a stroke diagnosis?: No VTE Prior VTE?: No VTE Risk Level:: Medical - moderate - high VTE Device Contraindication: Treatment Not Indicated VTE Drug Contraindication: N/A - Med Ordered
[2022-02-26] MEDS: cefTRIAXone sodium 1 GM in 0.9 % Sodium Chloride 50 ML IV (14:58)
[2022-02-26] MEDS: 0.9 % Sodium Chloride Flush 3 ML SYRINGE IVFLUSH (15:53)
--- NOTE | 2022-02-26 16:11 | MHC.CM.PN ---
STATUS CHANGED TO INPATIENT IMM DELIVERED
[2022-02-26] MEDS: Propranolol HCL LA 60 MG CAP.SA.24H PO (20:41)
--- NOTE | 2022-02-27 | EEG_ITS ---
This is a 16-channel EEG with an EKG lead. The patient is reported awake during the tracing. Background EEG rhythm is low to medium amplitude alpha and beta with no obvious asymmetry or paroxysmal tendency. Photic stimulation does not produce any significant abnormality. Hyperventilation is not performed. Cardiac lead does not reveal any significant abnormality. No sharp wave spikes or paroxysmal tendency noted. IMPRESSION: Unremarkable EEG. MD LOS Torrez/HALLEY / [id number]
[2022-02-27 03:44] VITALS: BP 110/69; PULSE 64; RESP 16; TEMP 36.5; O2SAT 94
[2022-02-27 07:22] VITALS: BP 128/72; PULSE 63; RESP 16; TEMP 36.4; O2SAT 95
[2022-02-27 07:56] LABS: Anion Gap 14 (12-20); Blood Urea Nitrogen 14 mg/dL (9-16); Carbon Dioxide 24 mmol/L (22-29); Chloride 106 mmol/L (96-108); Creatinine Clr Calc Pharmacy 95.9; Estimated Glomerular Filt Rate > 60; Glucose Random 91 mg/dL (60-115); Potassium 4.4 mmol/L (3.3-5.1); Sodium 140 mmol/L (135-145)
[2022-02-27 08:00] VITALS: BP 128/72; PULSE 63
[2022-02-27 08:43] VITALS: BP 122/80; BP 159/80; PULSE 75; PULSE 77
--- NOTE | 2022-02-27 09:37 | MHC.CM.PN ---
Male 77 DX New AFIB SZ and UTI. Pt is planned for an EEG. DP Home no services . Patient will arrange for transportation.
[2022-02-27] MEDS: Apixaban 5 MG TABLET PO (10:02)
[2022-02-27] MEDS: buPROPion HCl XL 150 MG TAB.ER.24H PO (10:02)
[2022-02-27] MEDS: levETIRAcetam 250 MG TABLET PO (10:02)
[2022-02-27] MEDS: Omeprazole 20 MG CAPSULE.DR PO (10:02)
[2022-02-27] MEDS: Cholecalciferol (Vitamin D3) 25 MCG TABLET PO (10:02)
[2022-02-27] MEDS: 0.9 % Sodium Chloride Flush 3 ML SYRINGE IVFLUSH (10:02)
[2022-02-27] MEDS: Atorvastatin Calcium 40 MG TABLET PO (10:02)
[2022-02-27] MEDS: Escitalopram Oxalate 20 MG TABLET PO (10:02)
[2022-02-27] MEDS: Finasteride 5 MG TABLET PO (10:02)
[2022-02-27 11:06] VITALS: BP 109/61; PULSE 64; RESP 20; TEMP 36.5; O2SAT 94
--- NOTE | 2022-02-27 12:54 | P.DS_ITS ---
DS: Providers Provider Date of Service: 02/27/22 Date of admission: 02/22/22 19:44 Primary care physician: Chris Walker MD Consults: 02/22/22 19:44 Consult to Cardiology Routine Consulting Provider: Mahesh Tapia Reason for consultation: new afib; chest pain; near syncope 02/22/22 21:01 Consult to Neurology Routine Consulting Provider: [facility] Reason for consultation: breif amnesia Attending physician on discharge: Maxime Gates Discharging clinician: Nan Mann DS: Diagnosis Discharge Diagnosis (1) Complex partial seizure disorder: Status: Acute (2) A-fib: Status: Acute (3) Recurrent UTI (urinary tract infection): Status: Acute DS: Summary Hospital Course Hospital Course: HP as per admitting provider 77-year-old male with a past medical history of hypertension, hyperlipidemia, anxiety, depression, osteoarthritis, GERD pr esented to the hospital today with a chief complaint of chest pain.?Patient reports that he came to the hospital to see his mentioned only he had an episode of brief amnesia.? When he was questioned who he was and where he was by the staff he was not able to recall information.? Followed by he felt discomfort in his chest-felt like burning.? Also had mild lightheadedness; did not lose consciousness.? Denies seizure-like activity.?Reports similar episodes in the past.?Now he mentions he is back to his normal and able to recall everything.?Denies any numbness tingling or focal weakness.?Denies any prior history of seizures.?Reports no nausea vomiting or diarrhea.? Denies any urinary symptoms.?Review of all other systems is negative except mentioned above ER course: Per ER team patient's initial EKG concerning for AFib-new onset; troponins were negative; concern for near syncope.? Admitted to the hospital for further management . E coli UTI Treated with Rocephin, 2 more days of oral Ceftin New onset AFib Rate controlled Miguel Vasc score 3-4 EF 60-65% with normal LV systolic function, severely dilated left atrium Seen evaluated by Cardiology. Started on Eliquis. Continue home dose of propranolol but changed bedtime due orthostatic hypotension Hypotension Brief episode of amnesia/confused.? No further episodes during admission associated with dizziness brain CT negative. no focal deficits. Symptoms ongoing for 6 months. orthostatics positive seen by Neurology, concern over complex partial seizures, recommend Keppra 500 b.i.d. f/u with neuro o/p EEG normal Orthostatic hypotension treated with IVF resolved History of hypertension/hyperlipidemia Continue home medications BPH with h/o recurrent UTI urine culture growing e.coli outpatient follow-up with Urology continue finasteride Time Spent with Patient Time attestation: Total time spent providing and/or coordinating discharge services: Discharge coordination time: Greater than 30 minutes Quality: Safe Use of Opioids Does Pt have an Active Cancer Diagnosis on the Problem List?: No Quality: Stroke Does the patient have a stroke diagnosis?: No Physical Exam Vital Signs: Vital Signs: Last Vital Signs Temp 97.7 F 02/27/22 11:06 Pulse 64 02/27/22 11:06 Resp 20 02/27/22 11:06 BP 109/61 02/27/22 11:06 Pulse Ox 94 02/27/22 11:06 O2 Del Method 02/27/22 11:06 FiO2 97 02/25/22 15:51 BMI result Body Mass Index 23.1 Appearing in no acute distress head is normocephalic atraumatic eyes pupils are PERRLA sclera is anicteric mouth throat mucous membranes are intact and moist neck is supple no lymphadenopathy, no JVD noted lung sounds are clear to auscultation heart regular rate rhythm, clear S1, S2 positive bowel sounds, abdomen is soft, nontender neuro patient is alert x3, no focal deficits DS: Data Data Completed and Pending Labs on day of discharge: Laboratory Results - last 24 hr 02/27/22 06:40 Sodium 140 Potassium 4.4 D Chloride 106 Carbon Dioxide 24 Anion Gap 14 BUN 14 Creatinine 0.75 Estim Creat Clear Calc 95.9 Estimated GFR > 60 Random Glucose 91 Calcium 9.0 Preliminary micro results at discharge 02/22/22 16:38 Blood Culture - Preliminary Blood - Venous No growth after 48 hours. 02/22/22 16:39 Blood Culture - Preliminary Blood - Venous No growth after 48 hours. Discharge Plan Discharge Anticipated Discharge Date/Time: 02/27/22 12:49 Patient Disposition: Home, Self-Care Discharge Diagnosis: Orthostatic hypotension possible complex partial seizures New onset atrial fibrillation Referrals: Chris Walker MD [Primary Care Provider] - 1 Week Mahesh Tapia MD [Physician] - Discharge Medications: New Eliquis 5 mg Tablet 5 mg PO BID Qty: 60 0RF levetiracetam 250 mg Tablet 250 mg PO BID Qty: 60 0RF cefuroxime axetil 250 mg tablet 250 mg PO BID Qty: 4 0RF Continued finasteride 5 mg Tablet 5 mg PO DAILY omeprazole 20 mg capsule,delayed release(DR/EC) 20 mg PO DAILY atorvastatin 40 mg tablet 40 mg PO DAILY bupropion HCl 150 mg tablet extended release 24 hr 150 mg PO QAM propranolol 60 mg capsule,extended release 24 hr 60 mg PO DAILY cholecalciferol (vitamin D3) 25 mcg (1,000 unit) tablet 25 mcg PO DAILY escitalopram oxalate 20 mg tablet 20 mg PO DAILY Discharge Orders: Discharge Order (Routine); Ordered 02/27/22 Ordered By: Nan Mann Diet: Advance to usual diet Activity on Discharge: As tolerated Stand Alone Forms: Patient Portal Discharge page Care Plan Goals: No further episodes seizure activity Health Concerns: Orthostatic hypotension possible complex partial seizures New onset atrial fibrillation Plan of Treatment: Follow-up with neurologist for outpatient EEG Take all medications as prescribed follow-up with the clam bed worker regarding atrial fibrillation and medication management Assessment: See discharge summary Discharge Date/Time: 02/27/22 13:47
--- NOTE | 2022-02-27 13:09 | MHC.CM.PN ---
Patient is discharged to home. No services ordered. He has arranged for transport home.
== END 2022-02-27 13:47 | disposition home or self-care (01) | DRG 101 ==
LOC: HO.ED 18:41 → HO.EDOVER 02-23 07:28 → HO.IMC 02-23 09:25 → HO.EDOVER 02-25 14:57 → HO.IMC 02-25 14:57
PROVIDERS: Emergency Medicine; Admitting Provider Hospitalist; Emergency Provider Emergency Medicine Emergency Medical Services; PCP Internal Medicine Medical Oncology; Visit Provider Nurse Practitioner Acute Care
DX: G40.209 Localization-related (focal) (partial) symptomatic epilepsy and epileptic syndromes with complex partial seizures, not intractable, without status epilepticus (principal); N39.0 Urinary tract infection, site not specified; I95.1 Orthostatic hypotension; I48.91 Unspecified atrial fibrillation; N40.0 Benign prostatic hyperplasia without lower urinary tract symptoms; I10 Essential (primary) hypertension; E78.5 Hyperlipidemia, unspecified; F41.9 Anxiety disorder, unspecified; F32.A Depression, unspecified; K21.9 Gastro-esophageal reflux disease without esophagitis; B96.20 Unspecified Escherichia coli [E. coli] as the cause of diseases classified elsewhere; Z20.822 Contact with and (suspected) exposure to COVID-19; Z87.440 Personal history of urinary (tract) infections; Z87.891 Personal history of nicotine dependence; Z88.2 Allergy status to sulfonamides; Z88.5 Allergy status to narcotic agent; Z88.8 Allergy status to other drugs, medicaments and biological substances; Z79.899 Other long term (current) drug therapy
CPT/HCPCS: 36415; 70450; 71275; 80048; 80076; 80307; 81001; 82077; 83605; 83735; 84443; 84484; 85025; 85379; 87040; 87086; 87088; 87186; 87635; 93005; 93306; 95816; 99219; 99285; J0696; J1650; Q9957; Q9967

== ENCOUNTER → 2022-03-14 13:36 | Outpatient (BNVA) | payer MEDICARE, SELFPAY | PROVIDERS: PCP Internal Medicine Medical Oncology; Visit Provider Internal Medicine Cardiovascular Disease | DX: I48.19 Other persistent atrial fibrillation (principal); R42 Dizziness and giddiness; Z79.01 Long term (current) use of anticoagulants | CPT/HCPCS: 93005; 99212 ==

== ENCOUNTER → 2022-03-27 08:47 | Outpatient (BNVA) | payer MEDICARE, SELFPAY | PROVIDERS: PCP Internal Medicine Medical Oncology; Visit Provider Internal Medicine | DX: I48.91 Unspecified atrial fibrillation (principal); Z51.81 Encounter for therapeutic drug level monitoring; Z79.01 Long term (current) use of anticoagulants | CPT/HCPCS: 85610; 99202 ==

== ENCOUNTER → 2022-03-29 09:44 | Outpatient (BNVA) | payer MEDICARE, SELFPAY | PROVIDERS: PCP Internal Medicine Medical Oncology; Visit Provider Internal Medicine | DX: I48.91 Unspecified atrial fibrillation (principal); Z79.01 Long term (current) use of anticoagulants; Z51.81 Encounter for therapeutic drug level monitoring | CPT/HCPCS: 85610; 99211 ==

== ENCOUNTER → 2022-03-31 10:03 | Outpatient (BNVA) | payer MEDICARE, SELFPAY | PROVIDERS: PCP Internal Medicine Medical Oncology; Visit Provider Internal Medicine | DX: I48.91 Unspecified atrial fibrillation (principal); Z79.01 Long term (current) use of anticoagulants; Z51.81 Encounter for therapeutic drug level monitoring | CPT/HCPCS: 85610; 99211 ==

== ENCOUNTER → 2022-04-03 10:06 | Outpatient (BNVA) | payer MEDICARE, SELFPAY | PROVIDERS: PCP Internal Medicine Medical Oncology; Visit Provider Internal Medicine | DX: I48.91 Unspecified atrial fibrillation (principal); Z79.01 Long term (current) use of anticoagulants; Z51.81 Encounter for therapeutic drug level monitoring | CPT/HCPCS: 85610; 99211 ==

== ENCOUNTER 2022-04-07 05:47 | Emergency (ER) | payer MEDICARE, SELFPAY ==
[2022-04-07 05:55] VITALS: BP 118/76; BP 165/103; PULSE 87; PULSE 88; RESP 16; O2SAT 94; O2SAT 99; BMI 19.4
[2022-04-07] MEDS: Tranexamic Acid 1,000 MG/10 ML VIAL 500 MG INTRANASAL (06:24)
[2022-04-07 06:30] LABS: Basophils Percent Auto 0.4 % (0-2); Eosinophils Percent Auto 1.5 % (0-4); Hematocrit 35.8 % (42.0-52.0); Hemoglobin 11.8 g/dl (14.0-18.0); Lymphocytes Absolute Auto 0.9 X10*3/uL (1.2-4.9); Lymphocytes Percent Auto 32.7 % (20-40); MANUAL DIFF FLAG NO; Mean Corpuscular Hemoglobin 29.6 pg (27.0-33.0); Mean Corpuscular Volume 89.7 fL (80.0-98.0); Mean Platelet Volume 10.2 fL (9.4-12.4); Monocytes Absolute Auto 0.5 X10*3/uL (0.1-1.2); Monocytes Percent Auto 17.3 % (2-11); Neutrophils Absolute Auto 1.3 x10*3/uL (2.0-8.3); Neutrophils Percent Auto 48.1 % (45-73); Platelet Count 179 X10*3/uL (160-400); Red Blood Count 3.99 X10*6/uL (4.60-5.80); Red Cell Distribution Width 12.2 % (11.0-16.0); White Blood Count 2.7 X10*3/uL (4.8-10.8)
--- NOTE | 2022-04-07 06:39 | ED_ITS ---
History of Present Illness General Chief Complaint: Epistaxis Stated Complaint: epitaxis x45 minutes, +blood thinners Time Seen by Provider: 04/07/22 05:59 Source: patient Mode of arrival: ambulatory Limitations: no limitations History of Present Illness HPI Narrative: Patient with history of AFib on Coumadin woke up in the Sleep with nose bleed from left nostril. Also patient complaining of chest cold last few days patient was in the hospital is also COVID positive no melena no bleeding from any other place no shortness of breath no dizziness no passing episode Related Data Home Medications Medication Instructions Recorded Confirmed atorvastatin 40 mg tablet 40 mg PO DAILY 05/10/20 04/03/22 omeprazole 20 mg capsule,delayed 20 mg PO DAILY 05/10/20 04/03/22 release bupropion HCl 150 mg 24 hr tablet, 150 mg PO QAM 01/19/22 04/03/22 extended release cholecalciferol (vitamin D3) 25 25 mcg PO DAILY 01/19/22 04/03/22 mcg (1,000 unit) tablet escitalopram oxalate 20 mg tablet 20 mg PO DAILY 01/19/22 04/03/22 propranolol 60 mg capsule,24 60 mg PO DAILY 01/19/22 04/03/22 hr,extended release finasteride 5 mg tablet 5 mg PO DAILY 02/23/22 04/03/22 warfarin 5 mg tablet 5 mg PO DAILY 03/27/22 04/03/22 Previous Rx's Medication Instructions Recorded levetiracetam 250 mg tablet 250 mg PO BID #60 tabs 02/27/22 amoxicillin 875 mg-potassium 1 tab PO BID #14 tabs 04/07/22 clavulanate 125 mg tablet Allergies Allergy/AdvReac Type Severity Reaction Status Date / Time indomethacin [From INDOCIN] Allergy Intermediate RASH Verified 04/03/22 10:06 oxycodone [OXYCODONE] Allergy Intermediate VOMITING/RA Verified 04/03/22 10:06 SH Sulfa (Sulfonamide Allergy Intermediate BLISTERS, Verified 04/03/22 10:06 Antibiotics) sore on [SULFA (SULFONAMIDE the end of ANTIBIOTICS)] his penis acetaminophen [Percocet] AdvReac Unknown vomiting Verified 04/03/22 10:06 Review of Systems Review of Systems: Yes all other systems are reviewed and are negative PMFSH Past Medical History Medical History A-fib Bilateral knee pain Osteoarthritis of left knee Recurrent UTI (urinary tract infection) Rotator cuff arthropathy of both shoulders Surgical History Status post right knee replacement Social History Social History Household Members: Spouse Housing: House Do you presently have visiting nurse or other home services: No Patient Tobacco Use Status: Former Tobacco user Advance Directives: Yes Advance Directives Information Provided: Yes Advance Directives on File: Yes Advance Directives Date on File: 02/28/22 service: No Current occupation: [employer] - right handed Current occupational exposures/hazards: No Physical Exam Vital Signs: Vital Signs: Last Vital Signs Pulse 75 04/07/22 07:30 Resp 20 04/07/22 07:30 BP 165/104 H 04/07/22 07:30 Pulse Ox 99 04/07/22 07:30 O2 Del Method 04/07/22 07:30 BMI result Body Mass Index 19.4 Appearance: Alert. Oriented X3. No acute distress. Eyes: No pallor ENT: Actively bleeding from left nostril no blood clots blood in oropharynx+. Oral Mucosa moist Neck: Normal inspection. Neck supple. CVS: Normal heart rate and rhythm. Pulses normal. Respiratory: No respiratory distress. Equal air entry bilateral, no wheezing/rales/rhonchi Abdomen: Soft and nontender. Bowel sounds are present, no mass palpable, Skin: Skin warm and dry. Normal skin color. Normal skin turgor. Extremities: No lower extremity edema. No calf tenderness Neuro: Oriented X 3. No motor deficit. MDM - Epistaxis MDM Narrative Medical decision making narrative: Patient with acute anterior epistaxis bleeding stopped using nasal tampon soaked with TXA will watch check PT INR, H&H stable, labs showed INR of 5.6 H&H stable and COVID-19 positive patients saturating 99% on room air Lab Data Attestation: I reviewed the patient's lab results. Result diagrams: 04/07/22 06:25 04/07/22 06:25 Labs: Lab Results 04/07/22 04/07/22 04/07/22 Range/Units 06:25 06:25 06:25 WBC 2.7 L (4.8-10.8) X10*3/uL RBC 3.99 L (4.60-5.80) X10*6/uL Hgb 11.8 L (14.0-18.0) g/dl Hct 35.8 L (42.0-52.0) % MCV 89.7 (80.0-98.0) fL MCH 29.6 (27.0-33.0) pg MCHC 33.0 (31.0-36.0) g/dl RDW 12.2 (11.0-16.0) % Plt Count 179 D (160-400) X10*3/uL MPV 10.2 (9.4-12.4) fL Immature Gran % (Auto) 0.0 (0.0-0.4) % Neut % (Auto) 48.1 (45-73) % Lymph % (Auto) 32.7 (20-40) % [place] % (Auto) 17.3 H (2-11) % Eos % (Auto) 1.5 (0-4) % Baso % (Auto) 0.4 (0-2) % Lymph # (Auto) 0.9 L (1.2-4.9) X10*3/uL [place] # (Auto) 0.5 (0.1-1.2) X10*3/uL Eos # (Auto) 0.0 (0.0-0.4) X10*3/uL Baso # (Auto) 0.0 (0.0-0.2) X10*3/uL Abs Immat Gran (auto) 0.00 (0.00-0.03) X10*3/uL Absolute Neuts (auto) 1.3 L (2.0-8.3) x10*3/uL Absolute Nucleated RBC 0.000 (0.0-0.012) X10*3/uL Nucleated RBC % (auto) 0.0 (0.0-0.2) /100WBC PT 68.9 H (10.0-13.1) SEC INR 5.6 H* (0.9-1.1) Sodium 141 (135-145) mmol/L Potassium 3.7 (3.3-5.1) mmol/L Chloride 106 (96-108) mmol/L Carbon Dioxide 23 (22-29) mmol/L Anion Gap 16 (12-20) BUN 9 (9-16) mg/dL Creatinine 0.80 (0.5-1.4) mg/dL Estim Creat Clear Calc 75.4 Estimated GFR > 60 Random Glucose 87 (60-115) mg/dL Calcium 8.7 (8.4-10.2) mg/dL COVID-19 (JG) (Negative) COVID-19 Clin Com 04/07/22 Range/Units 06:55 WBC (4.8-10.8) X10*3/uL RBC (4.60-5.80) X10*6/uL Hgb (14.0-18.0) g/dl Hct (42.0-52.0) % MCV (80.0-98.0) fL MCH (27.0-33.0) pg MCHC (31.0-36.0) g/dl RDW (11.0-16.0) % Plt Count (160-400) X10*3/uL MPV (9.4-12.4) fL Immature Gran % (Auto) (0.0-0.4) % Neut % (Auto) (45-73) % Lymph % (Auto) (20-40) % [place] % (Auto) (2-11) % Eos % (Auto) (0-4) % Baso % (Auto) (0-2) % Lymph # (Auto) (1.2-4.9) X10*3/uL [place] # (Auto) (0.1-1.2) X10*3/uL Eos # (Auto) (0.0-0.4) X10*3/uL Baso # (Auto) (0.0-0.2) X10*3/uL Abs Immat Gran (auto) (0.00-0.03) X10*3/uL Absolute Neuts (auto) (2.0-8.3) x10*3/uL Absolute Nucleated RBC (0.0-0.012) X10*3/uL Nucleated RBC % (auto) (0.0-0.2) /100WBC PT (10.0-13.1) SEC INR (0.9-1.1) Sodium (135-145) mmol/L Potassium (3.3-5.1) mmol/L Chloride (96-108) mmol/L Carbon Dioxide (22-29) mmol/L Anion Gap (12-20) BUN (9-16) mg/dL Creatinine (0.5-1.4) mg/dL Estim Creat Clear Calc Estimated GFR Random Glucose (60-115) mg/dL Calcium (8.4-10.2) mg/dL COVID-19 (JG) Positive A (Negative) COVID-19 Clin Com See Note Procedures Epistaxis Control Time Out Performed: Yes Nostril: Yes left Direct inspection: Yes unable to visualize Direct inspection method: Yes nasal speculum Clots removed by: Yes suction Epistaxis treatment: Yes TXA soaked gauze and Yes nasal tampon Results of treatment: Yes bleeding controlled Complications: Yes none Discharge Plan Discharge Clinical Impression: Acute anterior epistaxis, COVID-19 Patient Disposition: Home, Self-Care Instructions: Nosebleed (ED), COVID-19 (Coronavirus Disease 2019) (ED) Additional Instructions: Hold Coumadin tonight and tomorrow Call Coumadin clinic today about to confirm dosing of Coumadin If no recurrence of bleeding start Coumadin 2.5 mg daily Antibiotic as advised to avoid infection Packing removal in 2 days Prescriptions: New amoxicillin-pot clavulanate 875-125 mg tablet 1 tab PO BID Qty: 14 0RF No Action finasteride 5 mg Tablet 5 mg PO DAILY levetiracetam 250 mg Tablet 250 mg PO BID Qty: 60 0RF omeprazole 20 mg capsule,delayed release(DR/EC) 20 mg PO DAILY atorvastatin 40 mg tablet 40 mg PO DAILY bupropion HCl 150 mg tablet extended release 24 hr 150 mg PO QAM propranolol 60 mg capsule,extended release 24 hr 60 mg PO DAILY cholecalciferol (vitamin D3) 25 mcg (1,000 unit) tablet 25 mcg PO DAILY escitalopram oxalate 20 mg tablet 20 mg PO DAILY warfarin 5 mg tablet 5 mg PO DAILY Protocol: Dose Management Condition: Sunday (Week One) Dose/Route: 5 mg Instruction: 1 x 5 mg tablet Condition: Sunday Dose/Route: 2.5 mg Instruction: 0.5 x 5 mg tablets Condition: Sunday Dose/Route: 5 mg Instruction: 1 x 5 mg tablet Condition: Sunday Dose/Route: 5 mg Instruction: 1 x 5 mg tablet Condition: Dose/Route: 2.5 mg Instruction: 0.5 x 5 mg tablets Condition: Sunday Dose/Route: 5 mg Instruction: 1 x 5 mg tablet Condition: Sunday Dose/Route: 5 mg Instruction: 1 x 5 mg tablet Condition: Sunday (Week Two) Dose/Route: 5 mg Instruction: 1 x 5 mg tablet Condition: Sunday Dose/Route: 2.5 mg Instruction: 0.5 x 5 mg tablets Condition: Sunday Dose/Route: 5 mg Instruction: 1 x 5 mg tablet Condition: Sunday Dose/Route: 5 mg Instruction: 1 x 5 mg tablet Condition: Dose/Route: 2.5 mg Instruction: 0.5 x 5 mg tablets Condition: Sunday Dose/Route: 5 mg Instruction: 1 x 5 mg tablet Condition: Sunday Dose/Route: 5 mg Instruction: 1 x 5 mg tablet Protocol Text: Adjustment Start Date: Sunday04/03/22 INR Value: 2.6 INR Date: 04/03/22 Recheck Date: 04/07/22 Additional Instructions: INR is in range follow dosing chart balance greens and reds in diet
[2022-04-07 06:42] LABS: Prothrombin Time 68.9 SEC (10.0-13.1)
[2022-04-07 06:45] LABS: INTERNATIONAL NORM RATIO 5.6 (0.9-1.1)
[2022-04-07 06:46] LABS: Anion Gap 16 (12-20); Blood Urea Nitrogen 9 mg/dL (9-16); Calcium 8.7 mg/dL (8.4-10.2); Carbon Dioxide 23 mmol/L (22-29); Chloride 106 mmol/L (96-108); Creatinine Clr Calc Pharmacy 75.4; Estimated Glomerular Filt Rate > 60; Glucose Random 87 mg/dL (60-115); Potassium 3.7 mmol/L (3.3-5.1); Sodium 141 mmol/L (135-145)
[2022-04-07 07:13] LABS: COVID-19 Test Positive (Negative)
[2022-04-07 07:30] VITALS: BP 165/104; PULSE 75; RESP 20; O2SAT 99
[2022-04-07 07:42] VITALS: BP 173/101; PULSE 81; RESP 24; O2SAT 99
[2022-04-07] MEDS: Amoxicillin/Potassium Clav 875 MG TABLET PO (07:55)
[2022-04-07] MEDS: Metoprolol Tartrate 25 MG TABLET PO (07:55)
[2022-04-07 09:05] VITALS: BP 165/94; PULSE 83; RESP 20; TEMP 36.4; O2SAT 98
[2022-04-07 10:15] VITALS: BP 147/91; PULSE 87; RESP 20; O2SAT 95
== END 2022-04-07 13:58 | disposition home or self-care (01) ==
PROVIDERS: Emergency Provider Internal Medicine; PCP Internal Medicine Medical Oncology
DX: R04.0 Epistaxis (principal); Z20.822 Contact with and (suspected) exposure to COVID-19; Z79.899 Other long term (current) drug therapy; Z79.01 Long term (current) use of anticoagulants
CPT/HCPCS: 30901; 36415; 80048; 85025; 85610; 87635; 99283; 99284

== ENCOUNTER 2022-04-11 09:23 | Observation (INO) | payer MEDICARE, SELFPAY ==
[2022-04-11] VITALS (13 sets, daily range): BP systolic 85–132; BP diastolic 55–77; PULSE 86–132; RESP 17–24; TEMP 36.6; O2SAT 92–99; BMI 19.8
--- NOTE | ~2022-04-11 | XR_ITS ---
EXAMINATION: XR CHEST CLINICAL INFORMATION: Shortness of breath, COVID positive. COMPARISON: 05/10/2020 chest and rib radiographs. TECHNIQUE: Frontal view of the chest was obtained. FINDINGS: No significant abnormality is noted involving the heart, lungs, mediastinum, bony thorax or soft tissues. XR/XR chest 1V IMPRESSION: No acute cardiopulmonary process.
--- NOTE | 2022-04-11 10:20 | ECG_ITS ---
Test Reason : SOB Blood Pressure : / mmHG Vent. Rate : 111 BPM Atrial Rate : 000 BPM P-R Int : 000 ms QRS Dur : 122 ms QT Int : 380 ms P-R-T Axes : 000 073 -32 degrees QTc Int : 516 ms Atrial fibrillation with rapid ventricular response Right bundle branch block T wave abnormality, consider inferior ischemia Abnormal ECG When compared with ECG of 22-FEB-2022 16:08, Vent. rate has increased BY 39 BPM Referred By: Ele Gallagher Electronically Signed By:IGNACIO MARCELO MD
--- NOTE | 2022-04-11 10:37 | ED_ITS ---
HPI - General Adult General Chief complaint: Upper Respiratory Symptoms Stated complaint: covid + chest congestion, nose bleed Time Seen by Provider: 04/11/22 10:08 Source: patient History of Present Illness HPI narrative: 77-year-old male with a past medical history of AFib on Coumadin, COVID-19 positive 04/07/22 presenting to the ED complaining of generalized fatigue/weakness, decreased p.o. intake, chest congestion, exertional dyspnea and rhinorocket removal s/p placement in our ED on 04/07 for anterior epistaxis. Also reports cough. Admits has not taken his Coumadin since last ED visit. Denies known fever, chills, headache, abdominal pain, nausea, vomiting, diarrhea, pedal edema Of note patient's Coumadin was 5.6 on 04/07 Onset (ago): day(s) Related Data Home Medications Medication Instructions Recorded Confirmed atorvastatin 40 mg tablet 40 mg PO DAILY 05/10/20 04/03/22 omeprazole 20 mg capsule,delayed 20 mg PO DAILY 05/10/20 04/03/22 release bupropion HCl 150 mg 24 hr tablet, 150 mg PO QAM 01/19/22 04/03/22 extended release cholecalciferol (vitamin D3) 25 25 mcg PO DAILY 01/19/22 04/03/22 mcg (1,000 unit) tablet escitalopram oxalate 20 mg tablet 20 mg PO DAILY 01/19/22 04/03/22 propranolol 60 mg capsule,24 60 mg PO DAILY 01/19/22 04/03/22 hr,extended release finasteride 5 mg tablet 5 mg PO DAILY 02/23/22 04/03/22 warfarin 5 mg tablet 5 mg PO DAILY 03/27/22 04/07/22 Previous Rx's Medication Instructions Recorded levetiracetam 250 mg tablet 250 mg PO BID #60 tabs 02/27/22 amoxicillin 875 mg-potassium 1 tab PO BID #14 tabs 04/07/22 clavulanate 125 mg tablet Allergies Allergy/AdvReac Type Severity Reaction Status Date / Time indomethacin [From INDOCIN] Allergy Intermediate RASH Verified 04/07/22 13:37 oxycodone [OXYCODONE] Allergy Intermediate VOMITING/RA Verified 04/07/22 13:37 SH Sulfa (Sulfonamide Allergy Intermediate BLISTERS, Verified 04/07/22 13:37 Antibiotics) sore on [SULFA (SULFONAMIDE the end of ANTIBIOTICS)] his penis acetaminophen [Percocet] AdvReac Unknown vomiting Verified 04/07/22 13:37 Review of Systems Review of Systems: Constitutional: No Fever, No Chills, + Fatigue, + Malaise ENT/Mouth: No Ear Pain, No Nasal Congestion, No sore throat, No Rhinorrhea, No Swallowing Difficulty Eyes: No Eye Pain, No Swelling, No Redness, No Discharge, No Vision Changes Cardiovascular: + Chest congestion, No SOB, + Dyspnea on Exertion, No Orthopnea, No Edema, No Palpitations Respiratory: + Cough, No Sputum, No Wheezing, No Smoke Exposure, No Dyspnea Gastrointestinal: No Nausea, No Vomiting, No Diarrhea, No Constipation, No Abdominal pain Genitourinary: No Dysuria, No Urinary Frequency, No Hematuria, No Urinary Incontinence/retention, No Flank Pain Musculoskeletal: No joint pain, No Myalgias, No Joint Swelling Skin: No Skin Lesions, No rash Neuro: + Weakness, No Numbness, No Paresthesias, No Loss of Consciousness, , No Headache Yes all other systems are reviewed and are negative Constitutional: Constitutional: Reports as per HPI Neurologic: Denies Abnormal speech present [facility] Past Medical History Attestation statement: The following information was validated with the patient. Medical History A-fib Bilateral knee pain Osteoarthritis of left knee Recurrent UTI (urinary tract infection) Rotator cuff arthropathy of both shoulders Surgical History Status post right knee replacement Social History Social History Household Members: Spouse Housing: House Do you presently have visiting nurse or other home services: No Patient Tobacco Use Status: Former Tobacco user Advance Directives: Yes Advance Directives on File: Yes Advance Directives Date on File: 02/28/22 service: No Current occupation: [employer] - right handed Current occupational exposures/hazards: No Physical Exam ED Vital Signs: Vital Signs - 24 hr 04/11/22 09:32 04/11/22 11:03 04/11/22 11:16 Temperature 98 F Pulse Rate 94 100 114 H Respiratory Rate 18 Blood Pressure 97/55 L 106/57 L 107/60 Pulse Oximetry 99 Oxygen Delivery Method Room Air Oxygen Flow Rate 98 04/11/22 11:17 04/11/22 11:24 04/11/22 11:30 Temperature Pulse Rate 115 H 132 H Respiratory Rate Blood Pressure 112/59 L 85/56 L Pulse Oximetry 92 Oxygen Delivery Method Oxygen Flow Rate 04/11/22 11:31 Temperature Pulse Rate Respiratory Rate Blood Pressure Pulse Oximetry 94 Oxygen Delivery Method Room Air Oxygen Flow Rate BMI result Body Mass Index 19.8 Const General: cooperative, healthy appearing, no acute distress, alert and awake Orientation/consciousness: patient oriented x3 Limitations: no limitations HENMT Other: + rhinorocket in place to left nare Head: Yes normal to inspection and Yes atraumatic Ears: hearing grossly normal bilaterally Face and sinus: Yes normal facial exam Mouth: Normal oral and palatal mucosa present Throat: Yes posterior oropharynx normal, Yes tonsils normal, Yes uvula midline, No peritonsillar mass and No uvula laterally displaced Eyes General: appearance normal, both eyes and all related structures EOM: EOMs intact bilaterally Neck Neck: Yes normal visual inspection and Yes no meningeal signs Resp Effort & Inspection: normal respiratory effort and no respiratory distress Auscultation: clear to auscultation bilaterally, no crackles, no rales, rhonchi lower bilaterally and no wheezes Cardio Rate: regular rate Heart sounds: S1 normal heart sound present and S2 normal heart sound present GI Inspection: Yes normal to inspection Palpation (GI): Soft to palpation, nontender, no guarding and not rigid General: Yes no CVA tenderness Back/Spine/Pelvis Back: no CVA tenderness Skin Rashes: no rashes Wounds: no wounds Neuro General: patient oriented x3, tone normal, moves all extremities, no meningeal signs, no focal motor deficits and CN's II-XI intact bilaterally Cranial nerves: Yes CN's II-XII intact bilaterally and Yes Bilaterally intact EOM present Cognition (Neuro): normal cognition Speech: No Abnormal speech present Motor exam (neuro): 5/5 motor strength present throughout Extrem General: Yes normal to inspection and Yes no pedal edema Course Course Course Narrative: -1135--patient went into rapid AFib at a rate of 136 when getting up with minimal ambulation, saturation dropped to 92% on RA. Heart rate self improved now with a heart rate of 95-107 -orthostatic positive >> patient states he is not taking any of his home medications since 04/07 -improving leukopenia. H&H at patient's baseline. INR therapeutic. Initial troponin 17.1 > will take 3 hour repeat XR chest 1V IMPRESSION: No acute cardiopulmonary process. -1145--rhinorocket removed without recurrence of bleeding, will continue to monitor. Plan will be for admission -1159--BUN elevated likely from dehydration. Bilirubin is mildly elevated, labs otherwise reassuring Medical Decision Making MDM Narrative Medical decision making narrative: 77-year-old male with a past medical history of AFib on Coumadin, COVID-19 positive 04/07/22 presenting to the ED complaining of generalized fatigue/weakness, decreased p.o. intake, chest congestion, exertional dyspnea and rhinorocket removal s/p placement in our ED on 04/07 for anterior epistaxis. On exam mildly hypotensive, NAD, nontoxic appearing, rhinorocket in place without active bleeding, mild rhonchi bibasilarly, nontoxic appearing, no focal neuro deficits. Concern for continued COVID-19 symptoms vs dehydration/metabolic abnormalities vs pneumonia or UTI. Rule out other infectious etiology. Rule out ACS Low suspicion for CVA or PE Plan: EKG, labs, UA, CXR, IVF, re-evaluate Medical Records Medical records reviewed: Yes I reviewed the patient's medical records. Lab Data Lab results reviewed: Yes I reviewed the patient's lab results. Result diagrams: 04/11/22 10:59 04/11/22 10:59 Labs: Lab Results 04/11/22 04/11/22 04/11/22 Range/Units 10:59 10:59 10:59 WBC 4.6 L (4.8-10.8) X10*3/uL RBC 3.99 L (4.60-5.80) X10*6/uL Hgb 11.7 L (14.0-18.0) g/dl Hct 35.2 L (42.0-52.0) % MCV 88.2 (80.0-98.0) fL MCH 29.3 (27.0-33.0) pg MCHC 33.2 (31.0-36.0) g/dl RDW 12.1 (11.0-16.0) % Plt Count 227 D (160-400) X10*3/uL MPV 10.3 (9.4-12.4) fL Immature Gran % (Auto) 0.4 (0.0-0.4) % Neut % (Auto) 72.5 (45-73) % Lymph % (Auto) 11.4 L (20-40) % [place] % (Auto) 14.4 H (2-11) % Eos % (Auto) 1.1 (0-4) % Baso % (Auto) 0.2 (0-2) % Lymph # (Auto) 0.5 L (1.2-4.9) X10*3/uL [place] # (Auto) 0.7 (0.1-1.2) X10*3/uL Eos # (Auto) 0.1 (0.0-0.4) X10*3/uL Baso # (Auto) 0.0 (0.0-0.2) X10*3/uL Abs Immat Gran (auto) 0.02 (0.00-0.03) X10*3/uL Absolute Neuts (auto) 3.4 (2.0-8.3) x10*3/uL Absolute Nucleated RBC 0.000 (0.0-0.012) X10*3/uL Nucleated RBC % (auto) 0.0 (0.0-0.2) /100WBC PT 35.1 H (10.0-13.1) SEC INR 2.9 H D (0.9-1.1) Sodium 139 (135-145) mmol/L Potassium 4.1 (3.3-5.1) mmol/L Chloride 102 (96-108) mmol/L Carbon Dioxide 27 (22-29) mmol/L Anion Gap 14 (12-20) BUN 20 H D (9-16) mg/dL Creatinine 0.80 (0.5-1.4) mg/dL Estim Creat Clear Calc 76.7 Estimated GFR > 60 Random Glucose 102 (60-115) mg/dL Calcium 9.0 (8.4-10.2) mg/dL Magnesium 1.9 (1.6-2.6) mg/dL Total Bilirubin 1.4 H (0.0-1.0) mg/dL Direct Bilirubin 0.6 H (0.0-0.5) mg/dL AST 20 D (5-37) U/L ALT 12 (0-40) U/L Alkaline Phosphatase 91 (39-117) U/L Troponin I High Sens (<3.5-35.0) ng/L B-Natriuretic Peptide (<100) pg/mL Total Protein 6.4 L (6.5-8.0) g/dL Albumin 3.5 (3.5-5.0) g/dL COVID-19 (JG) (Negative) COVID-19 Clin Com 04/11/22 04/11/22 Range/Units 10:59 10:59 WBC (4.8-10.8) X10*3/uL RBC (4.60-5.80) X10*6/uL Hgb (14.0-18.0) g/dl Hct (42.0-52.0) % MCV (80.0-98.0) fL MCH (27.0-33.0) pg MCHC (31.0-36.0) g/dl RDW (11.0-16.0) % Plt Count (160-400) X10*3/uL MPV (9.4-12.4) fL Immature Gran % (Auto) (0.0-0.4) % Neut % (Auto) (45-73) % Lymph % (Auto) (20-40) % [place] % (Auto) (2-11) % Eos % (Auto) (0-4) % Baso % (Auto) (0-2) % Lymph # (Auto) (1.2-4.9) X10*3/uL [place] # (Auto) (0.1-1.2) X10*3/uL Eos # (Auto) (0.0-0.4) X10*3/uL Baso # (Auto) (0.0-0.2) X10*3/uL Abs Immat Gran (auto) (0.00-0.03) X10*3/uL Absolute Neuts (auto) (2.0-8.3) x10*3/uL Absolute Nucleated RBC (0.0-0.012) X10*3/uL Nucleated RBC % (auto) (0.0-0.2) /100WBC PT (10.0-13.1) SEC INR (0.9-1.1) Sodium (135-145) mmol/L Potassium (3.3-5.1) mmol/L Chloride (96-108) mmol/L Carbon Dioxide (22-29) mmol/L Anion Gap (12-20) BUN (9-16) mg/dL Creatinine (0.5-1.4) mg/dL Estim Creat Clear Calc Estimated GFR Random Glucose (60-115) mg/dL Calcium (8.4-10.2) mg/dL Magnesium (1.6-2.6) mg/dL Total Bilirubin (0.0-1.0) mg/dL Direct Bilirubin (0.0-0.5) mg/dL AST (5-37) U/L ALT (0-40) U/L Alkaline Phosphatase (39-117) U/L Troponin I High Sens 17.1 D (<3.5-35.0) ng/L B-Natriuretic Peptide 126 H (<100) pg/mL Total Protein (6.5-8.0) g/dL Albumin (3.5-5.0) g/dL COVID-19 (JG) Positive A (Negative) COVID-19 Clin Com See Note Discharge Plan Discharge Clinical Impression: Orthostasis, Weakness, Atrial fibrillation with RVR, COVID-19 Patient Disposition: Admitted As Inpatient
[2022-04-11 11:09] LABS: MANUAL DIFF FLAG NO
[2022-04-11 11:13] LABS: Basophils Percent Auto 0.2 % (0-2); Eosinophils Absolute Auto 0.1 X10*3/uL (0.0-0.4); Eosinophils Percent Auto 1.1 % (0-4); Hematocrit 35.2 % (42.0-52.0); Hemoglobin 11.7 g/dl (14.0-18.0); Imm Gran Abs Auto 0.02 X10*3/uL (0.00-0.03); Imm Gran Pct Auto 0.4 % (0.0-0.4); Lymphocytes Absolute Auto 0.5 X10*3/uL (1.2-4.9); Lymphocytes Percent Auto 11.4 % (20-40); Mean Corpuscular HGB Conc 33.2 g/dl (31.0-36.0); Mean Corpuscular Hemoglobin 29.3 pg (27.0-33.0); Mean Corpuscular Volume 88.2 fL (80.0-98.0); Mean Platelet Volume 10.3 fL (9.4-12.4); Monocytes Absolute Auto 0.7 X10*3/uL (0.1-1.2); Monocytes Percent Auto 14.4 % (2-11); Neutrophils Absolute Auto 3.4 x10*3/uL (2.0-8.3); Neutrophils Percent Auto 72.5 % (45-73); Platelet Count 227 X10*3/uL (160-400); Red Blood Count 3.99 X10*6/uL (4.60-5.80); Red Cell Distribution Width 12.1 % (11.0-16.0); White Blood Count 4.6 X10*3/uL (4.8-10.8)
[2022-04-11] MEDS: 0.9 % Sodium Chloride 1,000 ML 999 ML IV (11:14)
[2022-04-11 11:20] LABS: INTERNATIONAL NORM RATIO 2.9 (0.9-1.1); Prothrombin Time 35.1 SEC (10.0-13.1)
[2022-04-11 11:25] LABS: COVID-19 Test Positive (Negative); IDNOW Serial# 16C4AD1C
[2022-04-11 11:37] LABS: B Type Natriuretic Peptide 126 pg/mL (<100); Troponin-I High Sensitivity 17.1 ng/L (<3.5-35.0)
[2022-04-11 11:56] LABS: Alanine Aminotransferase 12 U/L (0-40); Albumin Level 3.5 g/dL (3.5-5.0); Alkaline Phosphatase 91 U/L (39-117); Anion Gap 14 (12-20); Aspartate Amino Transferase 20 U/L (5-37); Bilirubin Direct 0.6 mg/dL (0.0-0.5); Bilirubin Total 1.4 mg/dL (0.0-1.0); Blood Urea Nitrogen 20 mg/dL (9-16); Carbon Dioxide 27 mmol/L (22-29); Chloride 102 mmol/L (96-108); Creatinine Clr Calc Pharmacy 76.7; Estimated Glomerular Filt Rate > 60; Glucose Random 102 mg/dL (60-115); Magnesium 1.9 mg/dL (1.6-2.6); Potassium 4.1 mmol/L (3.3-5.1); Sodium 139 mmol/L (135-145); Total Protein 6.4 g/dL (6.5-8.0)
--- NOTE | 2022-04-11 13:04 | PM.IMHP ---
History of Present Illness Date of Service: 04/11/22 Attending physician on admission: Vin Edmonds Chief Complaint: malaise, cough, weakness 77-year-old male with a past medical history of hypertension, afib on coumadin, hyperlipidemia, anxiety, depression, osteoarthritis, GERD?presented to the ED this morning for evaluation of malaise, chest congestion, nonproductive cough, anorexia, decreased fluid intake ongoing for several days. Presented to the ED 3 days ago for a severe nose bleed and was foudn to have INR 5.8. Bleeding was stopped with rhinorocket and coumadin held. Incidentally also tested positive for COVID-19 during ER visit. He has not been treated for his COVID and denies any recurrence of nose bleeds or other bleeding. IN ED, COVID-19 remains positive, INR improved to 2.9. Mild, stable, normocytic anemia. No leukocytosis, renal function and electrolytes normal. bilirubin elevated above baseline at 1.4. Troponins negative. BNP 126. Chest x-ray unremarkable. He was found to be orthostatic with blood pressure dropping to 85/56 upon standing. Is also noted to be in AFib with RVR with rate up to 132 which broke spontaneously and he denies any symptoms including palpitations or chest pains but does endorse feeling breathless but there has been no hypoxia. He has been given 1L NS. Abebrile, non hypoxic. Review of Systems Review of Systems: General: +malaise. No fevers, unintentional weight loss HEENT: + epistaxis left nare. No blurred vision, diplopia. No rhinorrhea, nasal congestion, sore throat Cardiovascular: No chest pain, palpitations, or leg edema Respiratory: +sob, +cough, +chest congestion. No wheezing GI: No abdominal pain, nausea, vomiting, diarrhea, constipation, melena, hematochezia : No dysuria, hematuria, increased urinary frequency MSK: No myalgia Neuro: No headaches, weakness, paresthesias Skin: No rashes or lesions [facility] Medical History (Updated 04/11/22 @ 14:25 by LOVE Chow) A-fib Bilateral knee pain BPH w urinary obs/LUTS COVID-19 Osteoarthritis of left knee Recurrent UTI (urinary tract infection) Rotator cuff arthropathy of both shoulders Family History Mother No problems noted. Father No problems noted. Surgical History Status post right knee replacement Social History Household Members: Spouse Housing: House Do you presently have visiting nurse or other home services: No Patient Tobacco Use Status: Former Tobacco user Advance Directives: Yes Advance Directives on File: Yes Advance Directives Date on File: 02/28/22 service: No Current occupation: [employer] - right handed Current occupational exposures/hazards: No Meds Allergies Allergy/AdvReac Type Severity Reaction Status Date / Time indomethacin [From INDOCIN] Allergy Intermediate RASH Verified 04/07/22 13:37 oxycodone [OXYCODONE] Allergy Intermediate VOMITING/RA Verified 04/07/22 13:37 SH Sulfa (Sulfonamide Allergy Intermediate BLISTERS, Verified 04/07/22 13:37 Antibiotics) sore on [SULFA (SULFONAMIDE the end of ANTIBIOTICS)] his penis acetaminophen [Percocet] AdvReac Unknown vomiting Verified 04/07/22 13:37 Home Medications Medication Instructions Recorded Confirmed Last Taken Type atorvastatin 40 mg tablet 40 mg PO QPM 05/10/20 04/11/22 04/04/22 History omeprazole 20 mg capsule,delayed 20 mg PO QAM 05/10/20 04/11/22 04/04/22 History release bupropion HCl 150 mg 24 hr tablet, 150 mg PO QAM 01/19/22 04/11/22 04/04/22 History extended release cholecalciferol (vitamin D3) 25 25 mcg PO QAM 01/19/22 04/11/22 04/04/22 History mcg (1,000 unit) tablet propranolol 60 mg capsule,24 60 mg PO DAILY 01/19/22 04/11/22 04/04/22 History hr,extended release finasteride 5 mg tablet 5 mg PO DAILY 02/23/22 04/11/22 04/04/22 History warfarin 5 mg tablet 5 mg PO DAILY 03/27/22 04/11/22 04/04/22 History ascorbic acid (vitamin C) 500 mg 500 mg PO DAILY 04/11/22 04/11/22 04/04/22 History tablet (Vitamin C) paroxetine HCl 10 mg tablet 1 tab PO QAM 04/11/22 04/11/22 04/04/22 History Physical Exam Vital Signs and Narrative: Vital Signs: Last Vital Signs Temp 98 F 04/11/22 09:32 Pulse 132 H 04/11/22 11:24 Resp 18 04/11/22 09:32 BP 85/56 L 04/11/22 11:24 Pulse Ox 94 04/11/22 11:31 O2 Del Method 04/11/22 11:31 O2 Flow Rate 98 04/11/22 11:03 BMI result Body Mass Index 19.8 Constitutional - Awake and Alert, No apparent distress Eyes - PERRLA, EOMI Cardiovascular - S1S2, RRR, No edema Respiratory - Normal lung expansion, Normal respiratory effort, No respiratory distress, CTA bilaterally Gastrointestinal - NT / ND; +BS; No rebound or guarding Extremities - no calf tenderness bilaterally, no swelling Skin - Warm/Dry Neurological - Alert & oriented x3, CN II-XII in tact, 5/5 strength BUE and BLE Psychological - Appropriate affect Results Labs CBC and Chem 7: 04/11/22 10:59 04/11/22 10:59 Labs: Laboratory Results - last 24 hr 04/11/22 04/11/22 04/11/22 10:59 10:59 10:59 MCV 88.2 MCH 29.3 MCHC 33.2 RDW 12.1 Plt Count 227 D MPV 10.3 Immature Gran % (Auto) 0.4 Neut % (Auto) 72.5 Lymph % (Auto) 11.4 L [place] % (Auto) 14.4 H Eos % (Auto) 1.1 Baso % (Auto) 0.2 Lymph # (Auto) 0.5 L [place] # (Auto) 0.7 Eos # (Auto) 0.1 Baso # (Auto) 0.0 Abs Immat Gran (auto) 0.02 Absolute Neuts (auto) 3.4 Absolute Nucleated RBC 0.000 Nucleated RBC % (auto) 0.0 PT 35.1 H INR 2.9 H D Anion Gap 14 Estim Creat Clear Calc 76.7 Estimated GFR > 60 Random Glucose 102 Calcium 9.0 Magnesium 1.9 Total Bilirubin 1.4 H Direct Bilirubin 0.6 H AST 20 D ALT 12 Alkaline Phosphatase 91 Troponin I High Sens B-Natriuretic Peptide Total Protein 6.4 L Albumin 3.5 COVID-19 (JG) COVID-19 Clin Com 04/11/22 04/11/22 10:59 10:59 MCV MCH MCHC RDW Plt Count MPV Immature Gran % (Auto) Neut % (Auto) Lymph % (Auto) [place] % (Auto) Eos % (Auto) Baso % (Auto) Lymph # (Auto) [place] # (Auto) Eos # (Auto) Baso # (Auto) Abs Immat Gran (auto) Absolute Neuts (auto) Absolute Nucleated RBC Nucleated RBC % (auto) PT INR Anion Gap Estim Creat Clear Calc Estimated GFR Random Glucose Calcium Magnesium Total Bilirubin Direct Bilirubin AST ALT Alkaline Phosphatase Troponin I High Sens 17.1 D B-Natriuretic Peptide 126 H Total Protein Albumin COVID-19 (JG) Positive A COVID-19 Clin Com See Note Imaging Radiologist's Impressions: Impressions Chest X-Ray 04/11/22 10:40 IMPRESSION: No acute cardiopulmonary process. Assessment and Plan (1) Orthostasis: Status: Acute (2) COVID-19: Status: Acute (3) Atrial fibrillation with RVR: Status: Acute Plan 77-year-old male with a past medical history of hypertension, afib on coumadin, hyperlipidemia, anxiety, depression, osteoarthritis, GERD to be observed for orthostasis and COVID 19. #Orthostasis- likely secondary to dehydration from poor oral intake r/t COVID-19 -BP down to 85/56 on standing -Continue IVF -Monitor BP closely #COVID-19 -At risk for severe COVID-19 due to age and AFib -IV remdesivir -Not a candidate for steroids -Afebrile. No hypoxia - guaifenesin and Tessalon Perles p.r.n. # atrial fibrillation with RVR - resolved, rate now controlled - RVR resolved spontaneously - continue IVF as above - INR now therapeutic, resume warfarin - monitor INR daily - Hold propranolol til am due to borderline low bp #Epistaxis-Resolved -INR had been supratherapeutic 04/07 causing nose bleed -Rhinorocket removed -INR normalized. Resume coumadin -Stable normocytic anemia -Follow cbc #BPH with LUTS -Continue finasteride #GERD -Continue ppi #depression -continue bupropion and paroxetine DVT prophylaxis- coumadin Full code Quality Stroke Does the patient have a stroke diagnosis?: No VTE Prior VTE?: No VTE Risk Level:: Medical - moderate - high VTE Device Contraindication: Treatment Not Indicated VTE Drug Contraindication: N/A - Med Ordered
--- NOTE | 2022-04-11 14:21 | PHA.MEDREC ---
Pharmacy Consult ? Medication Reconciliation Pharmacy has completed the medication reconciliation. Patient is a poor historian and only has a vague idea of what he takes. Used claim history to guide him and he was pretty sure he was on the meds in the list with the exception of Eliquis which is too expensive and he takes warfarin instead. Since the nosebleed he has been worried about taking the warfarin moving forward however and he has been concerned about a recent diagnosis of cancer for his so he has not taken any of his normal home meds in at least 5 to 6 days.
[2022-04-11] MEDS: 0.9 % Sodium Chloride 1,000 ML 125 ML IVCONT ×2 (14:31→22:49)
[2022-04-11 14:46] LABS: Troponin-I High Sensitivity 17.5 ng/L (<3.5-35.0)
[2022-04-11 15:21] LABS: Appearance Urine Clear; Color Urine Yellow; Glucose Urine UA Negative (Negative); Leukocyte Esterase Urine Moderate (2+) (Negative); Nitrite Urine Positive (Negative); PH 6.5 (5.0-9.0); UMIC TRIGGER UACC YES; Urine Blood Trace (Negative); Urine Ketones 15 mg/dL (Negative); Urine Protein Trace mg/dL (Neg-Trace)
[2022-04-11 15:23] LABS: Bacteria Urine 4+ (None Seen); Hyaline Casts Urine 0-2 /LPF (0-2); RBC Urine 0-2 /HPF (0-2); Squamous Epithelial Cell Urine 0-2 /HPF (0-2); UACC Culture Trigger YES
[2022-04-11] MEDS: Omeprazole 20 MG CAPSULE.DR PO (15:48)
[2022-04-11] MEDS: Atorvastatin Calcium 40 MG TABLET PO (15:48)
[2022-04-11] MEDS: Cholecalciferol (Vitamin D3) 25 MCG TABLET PO (15:48)
[2022-04-11] MEDS: buPROPion HCl XL 150 MG TAB.ER.24H PO (15:48)
[2022-04-11] MEDS: PARoxetine HCL 10 MG TABLET PO (15:49)
--- NOTE | 2022-04-11 15:51 | PC.NURSE ---
pt. resting comfortably. exertion hr up to 150s, now in the 90s sitting in bed. gave him afternoon meds.
[2022-04-11] MEDS: Remdesivir 200 MG in 0.9 % Sodium Chloride 210 ML 105 MG IV (17:05)
[2022-04-11] MEDS: levETIRAcetam 250 MG TABLET PO (21:11)
--- NOTE | 2022-04-11 21:16 | PC.NURSE ---
Assumed care of pt. at 1900. Pt. resting quietly in bed watching tv. Pt. denies SOB and pain. Just states that he feels crummy and weak . Pt. requests abimbola armstrong at this time. Will continue to monitor.
--- NOTE | 2022-04-11 22:20 | PC.NURSE ---
Addendum entered by Marisa Vásquez RN 04/12/22 07:06: report given to NELSON Lindsay Original Note: report received from NELSON alba pt i alert and oriented resting in bed no signs of acute distress notice breathing equally unlabored pt on continuos cardiac monitoring
[2022-04-12 05:23] VITALS: BP 120/70; PULSE 82; RESP 15; TEMP 36.6; O2SAT 96
[2022-04-12] MEDS: Omeprazole 20 MG CAPSULE.DR PO (05:54)
[2022-04-12] MEDS: buPROPion HCl XL 150 MG TAB.ER.24H PO (05:54)
[2022-04-12 06:10] LABS: MANUAL DIFF FLAG NO
[2022-04-12 06:27] LABS: INTERNATIONAL NORM RATIO 2.9 (0.9-1.1); Prothrombin Time 34.4 SEC (10.0-13.1)
[2022-04-12 06:33] LABS: Eosinophils Absolute Auto 0.1 X10*3/uL (0.0-0.4); Eosinophils Percent Auto 3.6 % (0-4); Hematocrit 29.9 % (42.0-52.0); Hemoglobin 9.8 g/dl (14.0-18.0); Imm Gran Abs Auto 0.02 X10*3/uL (0.00-0.03); Imm Gran Pct Auto 0.6 % (0.0-0.4); Lymphocytes Absolute Auto 0.9 X10*3/uL (1.2-4.9); Lymphocytes Percent Auto 24.1 % (20-40); Mean Corpuscular HGB Conc 32.8 g/dl (31.0-36.0); Mean Corpuscular Hemoglobin 28.7 pg (27.0-33.0); Mean Corpuscular Volume 87.7 fL (80.0-98.0); Mean Platelet Volume 10.4 fL (9.4-12.4); Monocytes Absolute Auto 0.5 X10*3/uL (0.1-1.2); Monocytes Percent Auto 14.8 % (2-11); Neutrophils Percent Auto 56.9 % (45-73); Platelet Count 209 X10*3/uL (160-400); Red Blood Count 3.41 X10*6/uL (4.60-5.80); Red Cell Distribution Width 12.1 % (11.0-16.0); White Blood Count 3.6 X10*3/uL (4.8-10.8)
[2022-04-12 08:43] VITALS: BP 119/67; PULSE 91
[2022-04-12 08:45] VITALS: BP 116/73; PULSE 103
[2022-04-12 08:47] VITALS: BP 105/57; PULSE 107
[2022-04-12 08:59] VITALS: BP 105/57; PULSE 107
[2022-04-12] MEDS: Finasteride 5 MG TABLET PO (09:47)
[2022-04-12] MEDS: Cholecalciferol (Vitamin D3) 25 MCG TABLET PO (09:47)
[2022-04-12] MEDS: 0.9 % Sodium Chloride Flush 3 ML SYRINGE IVFLUSH ×2 (09:47→23:00)
[2022-04-12] MEDS: Ascorbic Acid 500 MG TABLET PO (09:47)
[2022-04-12] MEDS: levETIRAcetam 250 MG TABLET PO ×2 (09:47→23:00)
--- NOTE | 2022-04-12 12:09 | HO.PM.IMPN ---
Subjective Subjective Date of Service: 04/12/22 Interval History: No significant nursing events overnight. Patient states feels improved since admission, continues to have some weakness. Constitutional Constitutional: Reports weakness Cardiovascular Cardiovascular: Reports no additional cardiovascular complaints Respiratory Respiratory: Reports no additional respiratory complaints Gastrointestinal Gastrointestinal: Reports no additional gastrointestinal complaints Neurologic Neurologic: Reports weakness Physical Exam Vital Signs: Vital Signs: Last Vital Signs Temp 97.8 F 04/12/22 05:23 Pulse 107 H 04/12/22 08:59 Resp 15 04/12/22 05:23 BP 105/57 L 04/12/22 08:59 Pulse Ox 96 04/12/22 05:23 O2 Del Method 04/12/22 05:23 O2 Flow Rate 98 04/11/22 11:03 BMI result Body Mass Index 19.8 Elderly male lying in bed in no distress Neck supple, no JVD Tachycardic with regular rhythm, S1-S2 heard Regular breath sounds bilaterally, no wheezing or crackles appreciated Abdomen soft nontender, no guarding, no rigidity Patient is awake, alert and oriented to self, place, time and person ; no focal motor deficit Psych: Normal mood Objective Data Active Medications Ascorbic Acid (Ascorbic Acid 500 Mg Tablet) 500 mg PO DAILY [facility] Last Admin: 04/12/22 09:47 Dose: 500 mg Documented By: DAVID Atorvastatin Calcium (Atorvastatin Calcium 40 Mg Tablet) 40 mg PO BEDTIME [facility] Last Admin: 04/11/22 15:48 Dose: 40 mg Documented By: NEREIDA Benzonatate (Benzonatate 100 Mg Capsule) 100 mg PO TID PRN PRN Reason: Cough Bupropion HCl (Bupropion Hcl Xl 150 Mg Tab.Er.24h) 150 mg PO DAILY@0630 [facility] Last Admin: 04/12/22 05:54 Dose: 150 mg Documented By: SABRINA-ANICL Docusate Sodium (Docusate Sodium 100 Mg Capsule) 100 mg PO DAILY PRN PRN Reason: Constipation Finasteride (Finasteride 5 Mg Tablet) 5 mg PO DAILY [facility] Last Admin: 04/12/22 09:47 Dose: 5 mg Documented By: DAVID Guaifenesin (Guaifenesin 200 Mg/10 Ml 10 Ml Liquid) 10 ml PO Q6H PRN PRN Reason: Cough Sodium Chloride (Ns) 1,000 mls @ 125 mls/hr IVCONT .Q8H [facility] Last Admin: 04/12/22 05:55 Dose: Not Given Documented By: SABRINA-ANICL Non-Admin Reason: IV Running Remdesivir 100 mg/ Sodium (Chloride) 230 mls @ 115 mls/hr IV Q24H [facility] Stop: 04/13/22 17:59 Levetiracetam (Levetiracetam 250 Mg Tablet) 250 mg PO BID [facility] Last Admin: 04/12/22 09:47 Dose: 250 mg Documented By: DAVID Omeprazole (Omeprazole 20 Mg Capsule.Dr) 20 mg PO DAILY@0630 [facility] Last Admin: 04/12/22 05:54 Dose: 20 mg Documented By: SABRINA-ANICL Ondansetron HCl (Ondansetron Hcl 4 Mg/2 Ml Vial) 4 mg IVPUSH Q8H PRN PRN Reason: Nausea and Vomiting Paroxetine HCl (Paroxetine Hcl 10 Mg Tablet) 10 mg PO DAILY [facility] Last Admin: 04/11/22 15:49 Dose: 10 mg Documented By: NEREIDA Pharmacy Consult (Consult Rx Perform Med Rec) 1 each MISCELLANE ONCE PRN PRN Reason: Consult order Propranolol HCl (Propranolol Hcl La 60 Mg Cap.Sa.24h) 60 mg PO DAILY [facility]; Protocol Sodium Chloride (0.9 % Sodium Chloride Flush 3 Ml Syringe) 3 ml IVFLUSH QSHIFT [facility] Last Admin: 04/12/22 09:47 Dose: 3 ml Documented By: DAVID Vitamin D (Cholecalciferol (Vitamin D3) 25 Mcg Tablet) 25 mcg PO DAILY [facility] Last Admin: 04/12/22 09:47 Dose: 25 mcg Documented By: DAVID Warfarin Sodium (Warfarin Sodium 5 Mg Tablet) 5 mg PO DAILY [facility] Labs CBC & Chem 7: 04/12/22 06:04 04/11/22 10:59 Labs: Laboratory Results - last 24 hr 04/11/22 04/11/22 04/12/22 14:20 14:52 06:04 MCV 87.7 MCH 28.7 MCHC 32.8 RDW 12.1 Plt Count 209 MPV 10.4 Immature Gran % (Auto) 0.6 H Neut % (Auto) 56.9 Lymph % (Auto) 24.1 [place] % (Auto) 14.8 H Eos % (Auto) 3.6 Baso % (Auto) 0.0 Lymph # (Auto) 0.9 L [place] # (Auto) 0.5 Eos # (Auto) 0.1 Baso # (Auto) 0.0 Abs Immat Gran (auto) 0.02 Absolute Neuts (auto) 2.0 Absolute Nucleated RBC 0.000 Nucleated RBC % (auto) 0.0 PT INR Troponin I High Sens 17.5 Urine Color Yellow Urine Appearance Clear Urine pH 6.5 Ur Specific [place] 1.010 Urine Protein Trace Urine Glucose (UA) Negative Urine Ketones 15 Urine Blood Trace H Urine Nitrite Positive H Ur Leukocyte Esterase Moderate (2+) H Urine RBC 0-2 Urine WBC 11-20 H Ur Squamous Epith Cells 0-2 Urine Bacteria 4+ Hyaline Casts 0-2 04/12/22 06:04 MCV MCH MCHC RDW Plt Count MPV Immature Gran % (Auto) Neut % (Auto) Lymph % (Auto) [place] % (Auto) Eos % (Auto) Baso % (Auto) Lymph # (Auto) [place] # (Auto) Eos # (Auto) Baso # (Auto) Abs Immat Gran (auto) Absolute Neuts (auto) Absolute Nucleated RBC Nucleated RBC % (auto) PT 34.4 H INR 2.9 H Troponin I High Sens Urine Color Urine Appearance Urine pH Ur Specific [place] Urine Protein Urine Glucose (UA) Urine Ketones Urine Blood Urine Nitrite Ur Leukocyte Esterase Urine RBC Urine WBC Ur Squamous Epith Cells Urine Bacteria Hyaline Casts Microbiology Microbiology Results: Microbiology 04/11/22 15:24 Urine Culture - Preliminary Urine clean catch - Urine zhang top Culture in progress. Assessment and Plan (1) Orthostasis: Status: Acute (2) COVID-19: Status: Acute (3) Atrial fibrillation with RVR: Status: Acute (4) BPH w urinary obs/LUTS: Status: Acute Plan 77-year-old male with a past medical history of hypertension, afib on coumadin, hyperlipidemia, anxiety, depression, osteoarthritis, GERD presents for orthostasis and COVID 19. #. Orthostasis -due to intravascular volume depletion in the setting of COVID-19 infection. -improvement since admission but continues to be weak. Continue resuscitation and recheck orthostatics in a.m. -PT recommending short-term rehab, consulted social security benefits interviewer for assistance #. COVID-19 infection -not hypoxemic and no indication #. AFib with RVR -Resumed propranolol. On coumadin and INR in therapeutic range #. BPH -On finasteride #. MDD -continue home po medications #. Chronic normocytic anemia -noted drop in hb. no evidence of blood loss. likely hemoconcentrated yesterday. Continue to monitor. Obtain iron studies #. UA with pyuria and bacteriuria -?asymptomatic. Will hold off on treatment, cultures pending DVT prophylaxis - coumadin Full code Needs continued hospitalization for for IV fluid resuscitation. PT recommends short-term rehab, awaiting placement for safe discharge Quality Stroke Does the patient have a stroke diagnosis?: No VTE Prior VTE?: No VTE Risk Level:: Medical - moderate - high VTE Device Contraindication: Treatment Not Indicated VTE Drug Contraindication: N/A - Med Ordered
[2022-04-12] MEDS: Benzonatate 100 MG CAPSULE PO (12:25)
[2022-04-12] MEDS: guaiFENesin 200 MG/10 ML 10 ML LIQUID PO (12:25)
[2022-04-12] MEDS: Propranolol HCL LA 60 MG CAP.SA.24H PO (12:25)
[2022-04-12] MEDS: PARoxetine HCL 10 MG TABLET PO (12:26)
[2022-04-12] MEDS: Warfarin Sodium 5 MG TABLET PO (12:29)
[2022-04-12] MEDS: 0.9 % Sodium Chloride 1,000 ML 125 ML IVCONT ×2 (12:33→23:01)
--- NOTE | 2022-04-12 12:42 | PC.NURSE ---
[phone] JERRY CELL PHONE
--- NOTE | 2022-04-12 12:45 | MHC.CM.PN ---
pt dcd home no skilled servies ordered by pt lives with with had no servceis prior to admisison.pt has own ride home
--- NOTE | 2022-04-12 14:13 | PC.NURSE ---
alert, ate breakfast and lunch, nad, denies sob or pain, c/o gen weakness and non specific not feeling well , alert, speech clear
--- NOTE | 2022-04-12 14:42 | MHC.CM.PN ---
spoke with about physical therapys receommendation for str referrals madem ,also referals clare ns for rehab at home she will talk with reach her by cell [phone]
--- NOTE | 2022-04-12 15:09 | MHC.CM.PN ---
per md pt does not want str wants to go home referral to [facility]
[2022-04-12] MEDS: Remdesivir 100 MG in 0.9 % Sodium Chloride 230 ML 115 MG IV (15:26)
[2022-04-12 15:35] VITALS: BP 113/71; PULSE 67; RESP 14; O2SAT 94
[2022-04-12] MEDS: ondansetron HCL 4 MG/2 ML VIAL IVPUSH (15:41)
[2022-04-12 22:55] VITALS: BMI 19.8
[2022-04-12] MEDS: Atorvastatin Calcium 40 MG TABLET PO (23:00)
[2022-04-13] VITALS: BP 147/82; PULSE 79; RESP 16; TEMP 36.8; O2SAT 95
[2022-04-13 04:00] VITALS: BP 129/71; PULSE 72; RESP 18; TEMP 36.9; O2SAT 95
[2022-04-13] MEDS: Omeprazole 20 MG CAPSULE.DR PO (05:34)
[2022-04-13] MEDS: buPROPion HCl XL 150 MG TAB.ER.24H PO (05:34)
[2022-04-13] MEDS: Acetaminophen 325 MG TABLET 650 MG PO (05:34)
[2022-04-13] MEDS: 0.9 % Sodium Chloride 1,000 ML 125 ML IVCONT (06:17)
[2022-04-13 07:00] LABS: MANUAL DIFF FLAG NO
[2022-04-13 07:07] LABS: Basophils Percent Auto 0.2 % (0-2); Eosinophils Absolute Auto 0.2 X10*3/uL (0.0-0.4); Eosinophils Percent Auto 3.9 % (0-4); Hematocrit 31.3 % (42.0-52.0); Hemoglobin 10.2 g/dl (14.0-18.0); Imm Gran Abs Auto 0.01 X10*3/uL (0.00-0.03); Imm Gran Pct Auto 0.2 % (0.0-0.4); Lymphocytes Absolute Auto 0.6 X10*3/uL (1.2-4.9); Lymphocytes Percent Auto 10.6 % (20-40); Mean Corpuscular HGB Conc 32.6 g/dl (31.0-36.0); Mean Corpuscular Hemoglobin 28.5 pg (27.0-33.0); Mean Corpuscular Volume 87.4 fL (80.0-98.0); Mean Platelet Volume 10.4 fL (9.4-12.4); Monocytes Absolute Auto 0.5 X10*3/uL (0.1-1.2); Monocytes Percent Auto 10.4 % (2-11); Neutrophils Absolute Auto 3.9 x10*3/uL (2.0-8.3); Neutrophils Percent Auto 74.7 % (45-73); Platelet Count 226 X10*3/uL (160-400); Red Blood Count 3.58 X10*6/uL (4.60-5.80); Red Cell Distribution Width 12.1 % (11.0-16.0); White Blood Count 5.2 X10*3/uL (4.8-10.8)
[2022-04-13 07:22] LABS: Anion Gap 13 (12-20); Blood Urea Nitrogen 14 mg/dL (9-16); Calcium 8.2 mg/dL (8.4-10.2); Carbon Dioxide 21 mmol/L (22-29); Chloride 107 mmol/L (96-108); Estimated Glomerular Filt Rate > 60; Glucose Random 82 mg/dL (60-115); Potassium 3.9 mmol/L (3.3-5.1); Sodium 137 mmol/L (135-145)
[2022-04-13 08:00] VITALS: BP 123/69; PULSE 73; RESP 18; TEMP 36.4; O2SAT 95
[2022-04-13 09:37] LABS: INTERNATIONAL NORM RATIO 2.9 (0.9-1.1); Prothrombin Time 34.9 SEC (10.0-13.1)
--- NOTE | 2022-04-13 09:53 | P.DS_ITS ---
DS: Providers Provider Date of Service: 04/13/22 Date of admission: 04/11/22 14:05 Primary care physician: Chris Walker MD DS: Diagnosis Discharge Diagnosis (1) Orthostasis: Status: Acute (2) COVID-19: Status: Acute (3) Atrial fibrillation with RVR: Status: Acute (4) BPH w urinary obs/LUTS: Status: Acute DS: Summary Hospital Course Hospital Course: HPI: 77-year-old male with a past medical history of hypertension, afib on coumadin, hyperlipidemia, anxiety, depression, osteoarthritis, GERD?presented to the ED this morning for evaluation of malaise, chest congestion, nonproductive cough, anorexia, decreased fluid intake ongoing for several days. Presented to the ED 3 days ago for a severe nose bleed and was foudn to have INR 5.8. Bleeding was stopped with rhinorocket and coumadin held. Incidentally also tested positive for COVID-19 during ER visit. He has not been treated for his COVID and denies any recurrence of nose bleeds or other bleeding. IN ED, COVID-19 remains positive, INR improved to 2.9. Mild, stable, normocytic anemia. No leukocytosis, renal function and electrolytes normal.? bilirubin elevated above baseline at 1.4.? Troponins negative.? BNP 126.? Chest x-ray unremarkable.? He was found to be orthostatic with blood pressure dropping to 85/56 upon standing.? Is also noted to be in AFib with RVR with rate up to 132 which broke spontaneously and he denies any symptoms including palpitations or chest pains but does endorse feeling breathless but there has been no hypoxia. He has been given 1L NS. Abebrile, non hypoxic. Hospital course: Patient was resuscitated with IV crystalloids with improvement in blood pressure and weakness throughout hospital course. PT recommended short-term rehab which patient refused. Patient does not even want physical therapy at home. Patient is stable to be discharged. Is maintaining normal oxygen saturation on room air prior to discharge. Status at Discharge Overall status at discharge: patient is progressing back to baseline Time Spent with Patient Time attestation: Total time spent providing and/or coordinating discharge services: Discharge coordination time: Less than 30 minutes Quality: Safe Use of Opioids Does Pt have an Active Cancer Diagnosis on the Problem List?: No Quality: Stroke Does the patient have a stroke diagnosis?: No Physical Exam Vital Signs: Vital Signs: Last Vital Signs Temp 97.6 F 04/13/22 08:00 Pulse 73 04/13/22 08:00 Resp 18 04/13/22 08:00 BP 123/69 04/13/22 08:00 Pulse Ox 95 04/13/22 08:00 O2 Del Method 04/13/22 08:00 O2 Flow Rate 98 04/11/22 11:03 BMI result Body Mass Index 19.8 Elderly male lying in bed in no distress Neck supple, no JVD Regular rate with regular rhythm, S1-S2 heard Regular breath sounds bilaterally, no wheezing or crackles appreciated Abdomen soft nontender, no guarding, no rigidity Patient is awake, alert and oriented to self, place, time and person ; no focal motor deficit Psych: Normal mood DS: Data Data Completed and Pending Labs on day of discharge: Laboratory Results - last 24 hr 04/13/22 04/13/22 04/13/22 06:47 06:47 09:23 WBC 5.2 RBC 3.58 L Hgb 10.2 L Hct 31.3 L MCV 87.4 MCH 28.5 MCHC 32.6 RDW 12.1 Plt Count 226 MPV 10.4 Immature Gran % (Auto) 0.2 Neut % (Auto) 74.7 H Lymph % (Auto) 10.6 L [place] % (Auto) 10.4 Eos % (Auto) 3.9 Baso % (Auto) 0.2 Lymph # (Auto) 0.6 L [place] # (Auto) 0.5 Eos # (Auto) 0.2 Baso # (Auto) 0.0 Abs Immat Gran (auto) 0.01 Absolute Neuts (auto) 3.9 Absolute Nucleated RBC 0.000 Nucleated RBC % (auto) 0.0 PT 34.9 H INR 2.9 H Sodium 137 Potassium 3.9 Chloride 107 Carbon Dioxide 21 L Anion Gap 13 BUN 14 Creatinine 0.62 Estim Creat Clear Calc 99.0 Estimated GFR > 60 Random Glucose 82 Calcium 8.2 L D Preliminary micro results at discharge 04/11/22 15:24 Urine Culture - Preliminary Urine clean catch - Urine zhang top Culture in progress. Imaging Chest x-ray: Radiologist's impression: ITS Impressions Chest X-Ray 04/11/22 10:40 IMPRESSION: No acute cardiopulmonary process. Discharge Plan Discharge Anticipated Discharge Date/Time: 04/13/22 10:56 Patient Disposition: Home, Self-Care Referrals: Chris Walker MD [Primary Care Provider] - 1 Week Discharge Medications: Continued finasteride 5 mg Tablet 5 mg PO DAILY levetiracetam 250 mg Tablet 250 mg PO BID Qty: 60 0RF paroxetine HCl 10 mg tablet 1 tab PO QAM ascorbic acid (vitamin C) [Vitamin C] 500 mg Tablet 500 mg PO DAILY omeprazole 20 mg capsule,delayed release(DR/EC) 20 mg PO QAM Rx Instructions: TAKE 30 MINUTES BEFORE FIRST MEAL atorvastatin 40 mg tablet 40 mg PO QPM bupropion HCl 150 mg tablet extended release 24 hr 150 mg PO QAM propranolol 60 mg capsule,extended release 24 hr 60 mg PO DAILY cholecalciferol (vitamin D3) 25 mcg (1,000 unit) tablet 25 mcg PO QAM warfarin 5 mg tablet 5 mg PO DAILY Protocol: Dose Management Condition: Sunday (Week One) Dose/Route: 5 mg Instruction: 1 x 5 mg tablet Condition: Sunday Dose/Route: 2.5 mg Instruction: 0.5 x 5 mg tablets Condition: Sunday Dose/Route: 5 mg Instruction: 1 x 5 mg tablet Condition: Sunday Dose/Route: 5 mg Instruction: 1 x 5 mg tablet Condition: Dose/Route: 2.5 mg Instruction: 0.5 x 5 mg tablets Condition: Sunday Dose/Route: 0 mg Instruction: 0 tablets Condition: Sunday Dose/Route: 0 mg Instruction: 0 tablets Condition: Sunday (Week Two) Dose/Route: 0 mg Instruction: 0 tablets Condition: Sunday Dose/Route: 2.5 mg Instruction: 0.5 x 5 mg tablets Condition: Sunday Dose/Route: 5 mg Instruction: 1 x 5 mg tablet Condition: Sunday Dose/Route: 5 mg Instruction: 1 x 5 mg tablet Condition: Dose/Route: 2.5 mg Instruction: 0.5 x 5 mg tablets Condition: Sunday Dose/Route: 5 mg Instruction: 1 x 5 mg tablet Condition: Sunday Dose/Route: 5 mg Instruction: 1 x 5 mg tablet Protocol Text: Adjustment Start Date: Sunday04/07/22 INR Value: 5.6 INR Date: 04/07/22 Recheck Date: 04/09/22 Additional Instructions: do not take warfarin until MD states you can resume it. eat greens if you are able, when you go to have the packing removed you will have need to have labs drawn to check your health status and INR value. Label Comments: PT DC'D DUE TO NOSEBLEED AND IS HESITANT TO RESTART Rx Instructions: PT DC'D DUE TO NOSEBLEED AND IS HESITANT TO RESTART Diet: Low salt diet Activity on Discharge: As tolerated Stand Alone Forms: Patient Portal Discharge page Care Plan Goals: Follow up with PCP in one week Health Concerns: COVID 19 infection Plan of Treatment: As per summary Assessment: As per summary
[2022-04-13] MEDS: 0.9 % Sodium Chloride Flush 3 ML SYRINGE IVFLUSH (09:54)
[2022-04-13] MEDS: Propranolol HCL LA 60 MG CAP.SA.24H PO (09:54)
[2022-04-13] MEDS: PARoxetine HCL 10 MG TABLET PO (09:55)
[2022-04-13] MEDS: Finasteride 5 MG TABLET PO (09:55)
[2022-04-13] MEDS: levETIRAcetam 250 MG TABLET PO (09:55)
[2022-04-13] MEDS: Warfarin Sodium 5 MG TABLET PO (09:55)
[2022-04-13] MEDS: Cholecalciferol (Vitamin D3) 25 MCG TABLET PO (09:55)
[2022-04-13] MEDS: Ascorbic Acid 500 MG TABLET PO (09:55)
[2022-04-13 10:35] VITALS: BMI 19.8
--- NOTE | 2022-04-13 10:39 | MHC.CLN ---
PT IS MODERATELY MALNOURISHED PT WITH 13% NONSIGNIFICANT WT LOSS X 1 YEAR WITH CHRONIC POOR PO INTAKE AND MILDLY DEPLETED SUBCUTANEOUS FAT AND MUSCLE MASS PO INTAKE 100% X 1 MEAL DIET RX: CARDIAC-APPROPRIATE RECOMMEND ADDING ENSURE TID TO INCREASE KCALS SUPP TO PROVIDE 1050KCALS, 60G PROTEIN MONITOR PO INTAKE CLOSELY SEE ALSO FULL CLINICAL NUTRITION ASSESSMENT
[2022-04-13 11:30] VITALS: BP 132/64; PULSE 58; RESP 18; TEMP 36.2; O2SAT 98
--- NOTE | 2022-04-13 13:46 | MHC.CM.PN ---
Patient Covid+ is discharged to home today self care. He will follow up at [facility] for his next INR as instructed in discharge packet. He will self transport home.
== END 2022-04-13 14:01 | disposition home or self-care (01) ==
LOC: HO.ED 11:51 → HO.EDOVER 14:22 → HO.IMC 04-12 18:49
PROVIDERS: Physician Assistant; Admitting Provider Physician Assistant; Emergency Provider Emergency Medicine; PCP Internal Medicine Medical Oncology; Visit Provider Student in an Organized Health Care Education/Training Program
DX: U07.1 COVID-19 (principal); I95.1 Orthostatic hypotension; N13.8 Other obstructive and reflux uropathy; N40.1 Benign prostatic hyperplasia with lower urinary tract symptoms; I48.91 Unspecified atrial fibrillation; R06.02 Shortness of breath; R26.81 Unsteadiness on feet; Z20.822 Contact with and (suspected) exposure to COVID-19; Z79.899 Other long term (current) drug therapy
CPT/HCPCS: 36415; 71045; 80048; 80076; 81001; 83735; 83880; 84484; 85025; 85610; 87086; 87088; 87635; 93005; 96361; 96365; 96366; 96375; 97162; 99219; 99285; J0248; J2405

== ENCOUNTER 2022-04-17 15:00 | Emergency (ER) | payer MEDICARE, SELFPAY ==
--- NOTE | ~2022-04-17 | XR_ITS ---
EXAMINATION: XR CHEST CLINICAL INFORMATION: Covid positive COMPARISON: Chest radiograph 04/11/2022 , CT angiogram chest 02/23/2022 TECHNIQUE: Frontal view of the chest was obtained. FINDINGS: The heart and pulmonary vessels appear normal. In the left lung laterally, there is some ill-defined patchy infiltrate which is new when compared to the prior study indicative of an infiltrate. The right lung is clear. No pleural effusions. XR/XR chest 1V IMPRESSION: Left lung infiltrate consistent with Covid 19 pneumonia.
[2022-04-17 16:10] VITALS: BP 139/79; PULSE 80; RESP 18; TEMP 36.9; O2SAT 99; BMI 21.1
--- NOTE | 2022-04-17 18:43 | ED_ITS ---
HPI - URI/Sore Throat General Chief Complaint: Upper Respiratory Symptoms Stated Complaint: chest congestion Time Seen by Provider: 04/17/22 18:19 Source: patient Mode of arrival: ambulatory Limitations: no limitations History of Present Illness HPI Narrative: Patient is a 77-year-old male with a past medical history of AFib anticoagulated on Coumadin, HTN, HLD, and COVID+ on 04/07/2022 presents to the ED for bib luation of worsening cough, chest congestion, and generalized fatigue. Patient was seen here initially on 04/07/2022 for epistaxis and was found to be COVID positive. He returned on 04/11/2022 for worsening generalized fatigue, cough, and chest congestion. During his workup he was found to be in afib with RVR and was admitted for 2 days. CXR was ordered prior to his discharge and showed no acute pulmonary findings at that time. Per his discharge summary from 04/13/2022, he was not treated for his COVID symptoms. He returns today stating that his symptoms continue to worsen, feeling weaker and does not have an appetite. He denies any fevers, sputum production, nasal congestion, sore throat, SOB, chest pain, abdominal pain, N/V/D, calf pain/swelling, and rashes. MD elicited complaint: cough Pertinent past history: other (covid + 04/07/2022) Onset (ago): week(s) (1) Consistency: constant Severity: moderate Able to tolerate fluids by mouth: Yes Exacerbating factors: nothing Relieving factors: nothing Context: recent hospitalization (Hospitalized on 04/11/2022) Associated symptoms: myalgias Treatments prior to arrival: none Related Data Home Medications Medication Instructions Recorded Confirmed atorvastatin 40 mg tablet 40 mg PO QPM 05/10/20 04/11/22 omeprazole 20 mg capsule,delayed 20 mg PO QAM 05/10/20 04/11/22 release bupropion HCl 150 mg 24 hr tablet, 150 mg PO QAM 01/19/22 04/11/22 extended release cholecalciferol (vitamin D3) 25 25 mcg PO QAM 01/19/22 04/11/22 mcg (1,000 unit) tablet propranolol 60 mg capsule,24 60 mg PO DAILY 01/19/22 04/11/22 hr,extended release finasteride 5 mg tablet 5 mg PO DAILY 02/23/22 04/11/22 warfarin 5 mg tablet 5 mg PO DAILY 03/27/22 04/13/22 ascorbic acid (vitamin C) 500 mg 500 mg PO DAILY 04/11/22 04/11/22 tablet (Vitamin C) paroxetine HCl 10 mg tablet 1 tab PO QAM 04/11/22 04/11/22 Previous Rx's Medication Instructions Recorded levetiracetam 250 mg tablet 250 mg PO BID #60 tabs 02/27/22 ondansetron 4 mg disintegrating 4 mg PO Q8H PRN nausea and 04/13/22 tablet vomiting #14 tabs albuterol sulfate 90 mcg/actuation 1 inh inhalation QID PRN shortness 04/17/22 aerosol inhaler of breath or wheezing #8.5 grams doxycycline monohydrate 100 mg 100 mg PO BID 10 days #20 tabs 04/17/22 tablet prednisone 20 mg tablet 40 mg PO DAILY 5 days #10 tabs 04/17/22 Allergies Allergy/AdvReac Type Severity Reaction Status Date / Time indomethacin [From INDOCIN] Allergy Intermediate RASH Verified 04/07/22 13:37 oxycodone [OXYCODONE] Allergy Intermediate VOMITING/RA Verified 04/07/22 13:37 SH Sulfa (Sulfonamide Allergy Intermediate BLISTERS, Verified 04/07/22 13:37 Antibiotics) sore on [SULFA (SULFONAMIDE the end of ANTIBIOTICS)] his penis acetaminophen [Percocet] AdvReac Unknown vomiting Verified 04/07/22 13:37 Review of Systems Review of Systems: Constitutional : Positive generalized fatigue, positive anorexia, No Fever, No Chills. ENT/Mouth : No sore throat, No runny nose Eyes: No Discharge Cardiovascular : No Chest Pain, No SOB Respiratory : Positive Cough, positive chest congestion, No Sputum, No Wheezing, No Smoke Exposure, No Dyspnea Gastrointestinal : No Nausea, No Vomiting, No Diarrhea Genitourinary : No irregular bleeding, No Dysuria, No Urinary Frequency, No Hematuria, No Urinary Incontinence, No Urgency, No Flank Pain, Musculoskeletal : No Myalgia Skin : No rash Neuro : No Headache Yes all other systems are reviewed and are negative PMFSH Past Medical History Attestation statement: The following information was validated with the patient. Source: old records reviewed, obtained from family and nursing notes reviewed Medical History A-fib Bilateral knee pain BPH w urinary obs/LUTS COVID-19 Osteoarthritis of left knee Recurrent UTI (urinary tract infection) Rotator cuff arthropathy of both shoulders Surgical History Status post right knee replacement Family History Family History Mother No problems noted. Father No problems noted. Social History Social History Household Members: Spouse Housing: House Do you presently have visiting nurse or other home services: No Patient Tobacco Use Status: Former Tobacco user Advance Directives: Yes Advance Directives on File: Yes Advance Directives Date on File: 02/28/22 service: No Current occupation: [employer] - right handed Current occupational exposures/hazards: No Physical Exam Vital Signs: Vital Signs: Last Vital Signs Temp 98.4 F 04/17/22 16:10 Pulse 80 04/17/22 16:10 Resp 18 04/17/22 16:10 BP 139/79 04/17/22 16:10 Pulse Ox 99 04/17/22 16:10 O2 Del Method 04/17/22 16:10 BMI result Body Mass Index 21.1 vital signs have been reviewed Blood pressure normal. Heart rate normal. Respiration normal. Oxygen saturation normal. Appearance: Alert. Oriented X3. No acute distress. Head: Normal external exam. Normocephalic. Atraumatic. Eyes: PERRLA. EOMI. Conjunctiva and sclera normal. Eyelids normal. ENT: EAC normal. TM's Normal. Pharynx normal. Uvula midline. Moist mucous membranes. No trismus noted. No drooling noted. No muffled voice noted. No stridor noted. Patient tolerating secretions well. Neck: Normal inspection. Neck supple. FROM. No adenopathy. Thyroid Normal. No meningeal signs. No neck mass noted. CVS: Normal heart rate and rhythm. Heart sound normal. Pulses normal throughout. No murmurs/rales/gallops. Respiratory: No respiratory distress. Painless inspiration. Decreased breath sounds in the left lower lobe region. Normal breath sounds in all other lung higgins. Chest nontender. No accessory muscle usage noted or decreased air movement noted. Normal chest excursions noted. Abdomen: Soft and nontender. Bowel sounds normal in all 4 quadrants. No distention noted. No organomegaly noted. No visible injury noted. Back: No CVA tenderness. Full range of motion noted. No rashes/lesion/induration/fluctuance or signs of infection noted. Skin: Skin warm and dry. Normal skin color. Normal skin turgor. No rashes/lesions/lacerations noted. Extremities: No lower extremity edema. Extremities exhibit normal range of motion. Extremities nontender. Neuro: Oriented X 3. No motor deficit. No sensory deficit. Reflexes normal. Normal steady gait. No focal neuro deficits noted. Vascular: + radial pulses/+ 2 distal pedal pulses/+2 dorsalis pedis b/l. Normal cap refill. No cyanosis noted to upper extremity nails and lower extremity toes nails. Course Course Course Narrative: Patient is a 77-year-old male with a past medical history of AFib anticoagulated on Coumadin, HTN, HLD, and COVID+ on 04/07/2022 presents to the ED for evaluation of worsening cough, chest congestion, and generalized fatigue. Patient was seen here initially on 04/07/2022 for epistaxis and was found to be COVID positive. He returned on 04/11/2022 for worsening lies fatigue, cough, and chest congestion and was hospitalized for 2 days. CXR was ordered prior to patient discharge and showed no acute pulmonary findings at that time. Per his discharge summary from 05/10/2022, he was not treated for his COVID symptoms. He returns today stating that his symptoms continue to worsen, feeling weaker and does not have an appetite. Patient is currently afebrile without tachycardia and currently satting at 99% on room air. Physical exam remarkable for decreased breath sounds in the left lower lobe region. CXR shows left lung infiltrate consistent with COVID-19 pneumonia. Doxycycline and prednisone dose given while here. Will order CBC, CMP, Mg, PT/INR, and UA to rule out any other acute processes. Will obtain ambulatory pulse oximetry to assess oxygenation status during ambulation. Plan to discharge home pending labs show no acute findings and oxygenation lungs remain WNL. Reevaluation(s) Reevaluation #1: -CBC shows mild anemia with H/H of 11.4/34.1, elevated platelets at 479. -CMP, Mg within normal limits. -PT/INR elevated at 31.6/3.6. Patient states he has not been taking his Coumadin since his discharge from the hospital on 04/13/2022. Discussed with patient following up with PCP for repeat levels and when to continue his regular dose. -UA still pending. -Will order EKG given patient's recent admission for AFib in RVR. -Pending negative workup, plan to discharge patient home with antibiotics for pneumonia secondary to COVID-19 infection. Time: 20:02 Medications Administered Discontinued Medications Generic Name Dose Route Start Last Admin Trade Name Freq PRN Reason Stop Dose Admin Doxycycline Hyclate 100 mg 04/17/22 18:39 04/17/22 19:35 Doxycycline Hyclate 100 Mg Tablet PO 04/17/22 18:40 100 mg ONCE ONE Administration Prednisone 60 mg 04/17/22 18:39 04/17/22 19:35 Prednisone 20 Mg Tablet PO 04/17/22 18:40 60 mg ONCE ONE Administration MDM - URI/Sore Throat Medical Records Attestation: I reviewed the patient's medical records. Lab Data Attestation: I reviewed the patient's lab results. Result diagrams: 04/17/22 19:12 04/17/22 19:12 Labs: Lab Results 04/17/22 04/17/22 04/17/22 Range/Units 19:12 19:12 19:12 WBC 7.4 (4.8-10.8) X10*3/uL RBC 3.89 L (4.60-5.80) X10*6/uL Hgb 11.4 L (14.0-18.0) g/dl Hct 34.1 L (42.0-52.0) % MCV 87.7 (80.0-98.0) fL MCH 29.3 (27.0-33.0) pg MCHC 33.4 (31.0-36.0) g/dl RDW 12.3 (11.0-16.0) % Plt Count 479 H D (160-400) X10*3/uL MPV 9.4 (9.4-12.4) fL Immature Gran % (Auto) 0.4 (0.0-0.4) % Neut % (Auto) 73.6 H (45-73) % Lymph % (Auto) 12.2 L (20-40) % [place] % (Auto) 11.2 H (2-11) % Eos % (Auto) 2.3 (0-4) % Baso % (Auto) 0.3 (0-2) % Lymph # (Auto) 0.9 L (1.2-4.9) X10*3/uL [place] # (Auto) 0.8 (0.1-1.2) X10*3/uL Eos # (Auto) 0.2 (0.0-0.4) X10*3/uL Baso # (Auto) 0.0 (0.0-0.2) X10*3/uL Abs Immat Gran (auto) 0.03 (0.00-0.03) X10*3/uL Absolute Neuts (auto) 5.4 (2.0-8.3) x10*3/uL Absolute Nucleated RBC 0.000 (0.0-0.012) X10*3/uL Nucleated RBC % (auto) 0.0 (0.0-0.2) /100WBC PT 43.7 H (10.0-13.1) SEC INR 3.6 H (0.9-1.1) Sodium 141 (135-145) mmol/L Potassium 3.9 (3.3-5.1) mmol/L Chloride 104 (96-108) mmol/L Carbon Dioxide 25 (22-29) mmol/L Anion Gap 16 (12-20) BUN 8 L (9-16) mg/dL Creatinine 0.72 (0.5-1.4) mg/dL Estim Creat Clear Calc 90.9 Estimated GFR > 60 Random Glucose 87 (60-115) mg/dL Calcium 9.1 D (8.4-10.2) mg/dL Magnesium 1.8 (1.6-2.6) mg/dL Total Bilirubin 1.6 H (0.0-1.0) mg/dL AST 15 (5-37) U/L ALT 11 (0-40) U/L Alkaline Phosphatase 101 (39-117) U/L Total Protein 6.9 (6.5-8.0) g/dL Albumin 3.3 L (3.5-5.0) g/dL Imaging Data Chest x-ray: Attestation: I personally reviewed and interpreted this imaging study as follows: Radiologist's impression: FINDINGS: The heart and pulmonary vessels appear normal. In the left lung laterally, there is some ill-defined patchy infiltrate which is new when compared to the prior study indicative of an infiltrate. The right lung is clear. No pleural effusions. XR/XR chest 1V IMPRESSION: Left lung infiltrate consistent with Covid 19 pneumonia. ? ECG Data Attestation: I personally reviewed and interpreted this ECG as follows: ECG interpretation date: 04/17/22 ECG interpretation time: 20:48 Interpretation: Normal sinus rhythm with ventricular rate of 93 with right bundle branch block and nonspecific ST abnormality similar when compared to prior EKG no acute ischemic change are noted Discharge Plan Discharge Clinical Impression: Pneumonia due to COVID-19 virus Patient Disposition: Home, Self-Care Instructions: Pneumonia (ED), COVID-19 (Coronavirus Disease 2019) (ED) Additional Instructions: Your INR level was elevated today at 3.6. It is higher than it should be. You should contact your primary care provider about this. Possibly do not take your warfarin tomorrow and then restarted after you have your repeat INR with your primary care provider. Prescriptions: New doxycycline monohydrate 100 mg tablet 100 mg PO BID 10 Days Qty: 20 0RF prednisone 20 mg tablet 40 mg PO DAILY 5 Days Qty: 10 0RF albuterol sulfate 90 mcg/actuation HFA aerosol inhaler 1 inh inhalation QID PRN (Reason: shortness of breath or wheezing) Qty: 8.5 0RF No Action finasteride 5 mg Tablet 5 mg PO DAILY levetiracetam 250 mg Tablet 250 mg PO BID Qty: 60 0RF paroxetine HCl 10 mg tablet 1 tab PO QAM ascorbic acid (vitamin C) [Vitamin C] 500 mg Tablet 500 mg PO DAILY ondansetron 4 mg tablet,disintegrating 4 mg PO Q8H PRN (Reason: nausea and vomiting) Qty: 14 0RF omeprazole 20 mg capsule,delayed release(DR/EC) 20 mg PO QAM Rx Instructions: TAKE 30 MINUTES BEFORE FIRST MEAL atorvastatin 40 mg tablet 40 mg PO QPM bupropion HCl 150 mg tablet extended release 24 hr 150 mg PO QAM propranolol 60 mg capsule,extended release 24 hr 60 mg PO DAILY cholecalciferol (vitamin D3) 25 mcg (1,000 unit) tablet 25 mcg PO QAM warfarin 5 mg tablet 5 mg PO DAILY Protocol: Dose Management Condition: Sunday Dose/Route: 0 mg Instruction: 0 tablets Condition: Sunday Dose/Route: 0 mg Instruction: 0 tablets Condition: Sunday Dose/Route: 0 mg Instruction: 0 tablets Condition: Sunday Dose/Route: 0 mg Instruction: 0 tablets Condition: Dose/Route: 0 mg Instruction: 0 tablets Condition: Sunday Dose/Route: 0 mg Instruction: 0 tablets Condition: Sunday Dose/Route: 0 mg Instruction: 0 tablets Protocol Text: Adjustment Start Date: 04/13/22 INR Value: 2.9 INR Date: 04/13/22 Recheck Date: 04/14/22 Label Comments: PT DC'D DUE TO NOSEBLEED AND IS HESITANT TO RESTART Rx Instructions: PT DC'D DUE TO NOSEBLEED AND IS HESITANT TO RESTART Referrals: Chris Walker MD [Primary Care Provider] - 2 days
[2022-04-17 19:17] LABS: MANUAL DIFF FLAG NO
[2022-04-17 19:20] LABS: Basophils Percent Auto 0.3 % (0-2); Eosinophils Absolute Auto 0.2 X10*3/uL (0.0-0.4); Eosinophils Percent Auto 2.3 % (0-4); Hematocrit 34.1 % (42.0-52.0); Hemoglobin 11.4 g/dl (14.0-18.0); Imm Gran Abs Auto 0.03 X10*3/uL (0.00-0.03); Imm Gran Pct Auto 0.4 % (0.0-0.4); Lymphocytes Absolute Auto 0.9 X10*3/uL (1.2-4.9); Lymphocytes Percent Auto 12.2 % (20-40); Mean Corpuscular HGB Conc 33.4 g/dl (31.0-36.0); Mean Corpuscular Hemoglobin 29.3 pg (27.0-33.0); Mean Corpuscular Volume 87.7 fL (80.0-98.0); Mean Platelet Volume 9.4 fL (9.4-12.4); Monocytes Absolute Auto 0.8 X10*3/uL (0.1-1.2); Monocytes Percent Auto 11.2 % (2-11); Neutrophils Absolute Auto 5.4 x10*3/uL (2.0-8.3); Neutrophils Percent Auto 73.6 % (45-73); Platelet Count 479 X10*3/uL (160-400); Red Blood Count 3.89 X10*6/uL (4.60-5.80); Red Cell Distribution Width 12.3 % (11.0-16.0); White Blood Count 7.4 X10*3/uL (4.8-10.8)
[2022-04-17 19:25] LABS: INTERNATIONAL NORM RATIO 3.6 (0.9-1.1); Prothrombin Time 43.7 SEC (10.0-13.1)
[2022-04-17] MEDS: predniSONE 20 MG TABLET 60 MG PO (19:35)
[2022-04-17 19:43] LABS: Alanine Aminotransferase 11 U/L (0-40); Alkaline Phosphatase 101 U/L (39-117); Magnesium 1.8 mg/dL (1.6-2.6)
--- NOTE | 2022-04-17 19:46 | ECG_ITS ---
Test Reason : COVID SYMPTOMS Blood Pressure : / mmHG Vent. Rate : 093 BPM Atrial Rate : 097 BPM P-R Int : 000 ms QRS Dur : 126 ms QT Int : 380 ms P-R-T Axes : 000 -05 063 degrees QTc Int : 472 ms Atrial fibrillation Right bundle branch block Abnormal ECG When compared with ECG of 11-APR-2022 10:50, No significant changes seen Referred By: Khloe Baez Electronically Signed By:IGNACIO MARCELO MD
[2022-04-17 19:50] LABS: Albumin Level 3.3 g/dL (3.5-5.0); Anion Gap 16 (12-20); Aspartate Amino Transferase 15 U/L (5-37); Bilirubin Total 1.6 mg/dL (0.0-1.0); Blood Urea Nitrogen 8 mg/dL (9-16); Calcium 9.1 mg/dL (8.4-10.2); Carbon Dioxide 25 mmol/L (22-29); Chloride 104 mmol/L (96-108); Creatinine Clr Calc Pharmacy 90.9; Estimated Glomerular Filt Rate > 60; Glucose Random 87 mg/dL (60-115); Potassium 3.9 mmol/L (3.3-5.1); Sodium 141 mmol/L (135-145); Total Protein 6.9 g/dL (6.5-8.0)
[2022-04-17 21:34] LABS: Appearance Urine Turbid; Color Urine Dark Yellow; Glucose Urine UA Negative (Negative); Leukocyte Esterase Urine Large (3+) (Negative); Nitrite Urine Positive (Negative); PH 6.5 (5.0-9.0); Specific Gravity - Urine 1.015 (1.005-1.025); UMIC TRIGGER UACC YES; Urine Blood Moderate (2+) (Negative); Urine Ketones 40 mg/dL (Negative); Urine Protein 30 (1+) mg/dL (Neg-Trace)
[2022-04-17 21:46] LABS: Bacteria Urine 4+ (None Seen); Hyaline Casts Urine >20 /LPF (0-2); Squamous Epithelial Cell Urine 0-2 /HPF (0-2); UACC Culture Trigger YES; WBC Urine >50 /HPF (0-5)
== END 2022-04-17 21:06 | disposition home or self-care (01) ==
PROVIDERS: Physician Assistant Medical; Emergency Provider Emergency Medicine; PCP Internal Medicine Medical Oncology
DX: U07.1 COVID-19 (principal); J12.82 Pneumonia due to coronavirus disease 2019; R79.1 Abnormal coagulation profile; R53.1 Weakness; I10 Essential (primary) hypertension; E78.5 Hyperlipidemia, unspecified; I48.91 Unspecified atrial fibrillation; Z79.01 Long term (current) use of anticoagulants; Z79.02 Long term (current) use of antithrombotics/antiplatelets; Z79.899 Other long term (current) drug therapy; Z87.440 Personal history of urinary (tract) infections; Z87.891 Personal history of nicotine dependence
CPT/HCPCS: 36415; 71045; 80053; 81001; 83735; 85025; 85610; 87086; 93005; 99283

== ENCOUNTER → 2022-04-19 10:10 | Outpatient (BNVA) | payer MEDICARE, SELFPAY | PROVIDERS: PCP Internal Medicine Medical Oncology; Visit Provider Internal Medicine | DX: I48.91 Unspecified atrial fibrillation (principal); Z79.01 Long term (current) use of anticoagulants; Z51.81 Encounter for therapeutic drug level monitoring | CPT/HCPCS: 85610; 99211 ==

== ENCOUNTER → 2022-04-24 10:36 | Outpatient (BNVA) | payer MEDICARE, SELFPAY | PROVIDERS: PCP Internal Medicine Medical Oncology; Visit Provider Internal Medicine | DX: I48.91 Unspecified atrial fibrillation (principal); Z79.01 Long term (current) use of anticoagulants; Z51.81 Encounter for therapeutic drug level monitoring | CPT/HCPCS: 85610; 99211 ==

== ENCOUNTER → 2022-05-01 10:34 | Outpatient (BNVA) | payer MEDICARE, SELFPAY | PROVIDERS: PCP Internal Medicine Medical Oncology; Visit Provider Internal Medicine | DX: I48.91 Unspecified atrial fibrillation (principal); Z79.01 Long term (current) use of anticoagulants; Z51.81 Encounter for therapeutic drug level monitoring | CPT/HCPCS: 85610; 99211 ==

== ENCOUNTER → 2022-05-08 11:03 | Outpatient (BNVA) | payer MEDICARE, SELFPAY | PROVIDERS: PCP Internal Medicine Medical Oncology; Visit Provider Internal Medicine | DX: I48.91 Unspecified atrial fibrillation (principal); Z79.01 Long term (current) use of anticoagulants; Z51.81 Encounter for therapeutic drug level monitoring | CPT/HCPCS: 85610; 99211 ==

== ENCOUNTER 2022-05-14 10:40 | Emergency (ER) | payer MEDICARE, SELFPAY ==
[2022-05-14 10:50] VITALS: BP 153/95; PULSE 79; RESP 14; O2SAT 100
[2022-05-14 10:57] VITALS: BP 153/95; PULSE 79; RESP 14; O2SAT 100; BMI 23.7
--- NOTE | 2022-05-14 11:24 | PC.NURSE ---
B/L nasal packing placed by Khloe ALEMAN.
--- NOTE | 2022-05-14 11:32 | ED.EPISTAXIS ---
History of Present Illness General Chief Complaint: Epistaxis Stated Complaint: Nose Bleed, On Blood Thinner per EMS Time Seen by Provider: 05/14/22 10:46 Source: patient and EMS Mode of arrival: EMS Limitations: no limitations History of Present Illness HPI Narrative: 77yoM c PMHx of atrial fibrillation on Coumadin, HTN, hypercholesterolemia, anxiety, depression, osteoarthritis, GERD and COVID-19 positive on 04/07/2022 who is presenting to the ED via EMS with sudden onset of epistaxis to bilateral nares that occurred after 09:30 when he woke up. He reports that he had just got up and was about to feed the cats when he started to bleed from his nose. He reports this has happened in the past very often. Reports he is taking his Coumadin as prescribed. He denies any other symptoms complaints or concerns at this time. Location: Yes bilateral nares Onset/current episode: Yes minute(s) (Approximately 40 minutes prior to arrival) Duration: Yes constant Pertinent past history: Yes hypertension and Yes history of previous nose bleed Context: Yes history of previous nose bleed, Yes warfarin use, Yes hypertension and Yes recent /current URI Treatment prior to arrival: Yes nose pinching, Yes head leaning forward and Yes stuff nose with tissue Related Data Home Medications Medication Instructions Recorded Confirmed atorvastatin 40 mg tablet 40 mg PO QPM 05/10/20 05/08/22 omeprazole 20 mg capsule,delayed 20 mg PO QAM 05/10/20 05/08/22 release bupropion HCl 150 mg 24 hr tablet, 150 mg PO QAM 01/19/22 05/08/22 extended release cholecalciferol (vitamin D3) 25 25 mcg PO QAM 01/19/22 05/08/22 mcg (1,000 unit) tablet propranolol 60 mg capsule,24 60 mg PO DAILY 01/19/22 05/08/22 hr,extended release finasteride 5 mg tablet 5 mg PO DAILY 02/23/22 05/08/22 warfarin 5 mg tablet 5 mg PO DAILY 03/27/22 05/08/22 ascorbic acid (vitamin C) 500 mg 500 mg PO DAILY 04/11/22 05/08/22 tablet (Vitamin C) paroxetine HCl 10 mg tablet 1 tab PO QAM 04/11/22 05/08/22 ascorbic acid (vitamin C) 500 mg mg PO 04/19/22 05/08/22 capsule Previous Rx's Medication Instructions Recorded ondansetron 4 mg disintegrating 4 mg PO Q8H PRN nausea and 04/13/22 tablet vomiting #14 tabs albuterol sulfate 90 mcg/actuation 1 inh inhalation QID PRN shortness 04/17/22 aerosol inhaler of breath or wheezing #8.5 grams cephalexin 500 mg capsule 500 mg PO BID 7 days #14 caps 05/14/22 Allergies Allergy/AdvReac Type Severity Reaction Status Date / Time indomethacin [From INDOCIN] Allergy Intermediate RASH Verified 05/08/22 11:21 oxycodone [OXYCODONE] Allergy Intermediate VOMITING/RA Verified 05/08/22 11:21 SH Sulfa (Sulfonamide Allergy Intermediate BLISTERS, Verified 05/08/22 11:21 Antibiotics) sore on [SULFA (SULFONAMIDE the end of ANTIBIOTICS)] his penis acetaminophen [Percocet] AdvReac Unknown vomiting Verified 05/08/22 11:21 Review of Systems Review of Systems: Constitutional : No Fever, No Chills ENT/Mouth : No Ear Pain, No Nasal Congestion, positive nose bleed Eyes: No Eye Pain, No Swelling, No Redness Cardiovascular : No Chest Pain, No SOB Respiratory : No Cough, No Sputum Gastrointestinal : No Nausea, No Vomiting, No Diarrhea Genitourinary : No Dysuria, No Hematuria Musculoskeletal : No joint pain, No Myalgias Skin : No Skin Lesions, No rash Neuro : No Weakness, No Numbness, No headache Psych : No Anxiety/Panic, No Depression Heme/Lymph: No Bleeding,No Lymphadenopathy Endocrine : No Polyuria, No Polydipsia Yes all other systems are reviewed and are negative [facility] Past Medical History Attestation statement: The following information was validated with the patient. Source: old records reviewed and nursing notes reviewed Medical History A-fib Bilateral knee pain BPH w urinary obs/LUTS COVID-19 Osteoarthritis of left knee Recurrent UTI (urinary tract infection) Rotator cuff arthropathy of both shoulders Surgical History Status post right knee replacement Family History Family History Mother No problems noted. Father No problems noted. Social History Social History Household Members: Spouse Housing: House Do you presently have visiting nurse or other home services: No Patient Tobacco Use Status: Former Tobacco user Smoked in Last 30 Days: No Use of substances other than those prescribed or required for medical reasons: No Advance Directives: Yes Advance Directives on File: Yes Advance Directives Date on File: 02/28/22 service: No Current occupation: [employer] - right handed Current occupational exposures/hazards: No Physical Exam Vital Signs: Vital Signs: Last Vital Signs Pulse 68 05/14/22 13:40 Resp 16 05/14/22 13:40 BP 162/75 H 05/14/22 13:40 Pulse Ox 93 05/14/22 13:40 O2 Del Method 05/14/22 13:40 BMI result Body Mass Index 23.7 vital signs have been reviewed as normal and appeared to be correct. Blood pressure 153/95 Heart rate normal. Respiration rate normal. Temperature normal. Oxygen saturation normal. Appearance: Alert. Oriented X3. No acute distress. Head: Normal external exam. Normocephalic. Atraumatic. Eyes: PERRLA. EOMI. Conjunctiva and sclera normal. Eyelids normal. ENT: He is noted to have blood in the posterior pharynx otherwise the posterior pharynx is within normal limits. Uvula midline. Normal voice. No trismus/drooling/stridor noted. Tolerating secretions well. Moist mucous membranes. Patient noted to have active epistaxis his bleeding from bilateral nares with bright red blood. No clots noted. No bony tenderness noted. No septal hematoma noted. No signs of trauma noted. Neck: Normal inspection. Neck supple. FROM. CVS: Normal heart rate and rhythm. Respiratory: No respiratory distress. Painless inspiration. Skin: Skin warm and dry. Normal skin color. Normal skin turgor. No rashes/lesions/lacerations noted. Extremities: No lower extremity edema. No calf tenderness noted. Extremities exhibit normal range of motion. Extremities nontender. Neuro: Oriented X 3. No motor deficit. No sensory deficit. Reflexes normal. Normal steady gait. No focal neuro deficits noted. Vascular: + radial pulses/+ 2 distal pedal pulses/+2 dorsalis pedis b/l. Normal cap refill. No cyanosis noted to upper extremity nails and lower extremity toes nails. Course Course Course Narrative: 11am - 77yoM c PMHx of atrial fibrillation on Coumadin, HTN, hypercholesterolemia, anxiety, depression, osteoarthritis, GERD and COVID-19 positive on 04/07/2022 who is presenting to the ED via EMS with sudden onset of epistaxis to bilateral nares that occurred after 09:30 when he woke up. He reports that he had just got up and was about to feed the cats when he started to bleed from his nose. He reports this has happened in the past very often. Reports he is taking his Coumadin as prescribed. Plan: Patient has active epistaxis to bilateral nares therefore to 7.5 rhino rocket placed at this time. Will obtain labs and re-evaluate. Reevaluation(s) Reevaluation #1: - patient has been here 5 hours. Epistaxis is controlled now with 2 rhino rockets after they were soaked in Tranexamic acid. Repeat H&H is stable. Therefore at this time will DC home with instructions return in 2 days for removal of rhino rockets to bilateral nares. He denies any sleep apnea. I explained to him if he can make an appointment with ear nose and throat that he should call them tomorrow and follow up with them instead. Dr. Bradshaw and I decided that the patient should not take his Coumadin today or tomorrow and then on Sunday we will let him know if he should take it. Patient understands agrees with this plan. Time: 15:23 Medications Administered Discontinued Medications Generic Name Dose Route Start Last Admin Trade Name Too PRN Reason Stop Dose Admin Tranexamic Acid 500 mg 05/14/22 12:03 05/14/22 12:21 Tranexamic Acid 1,000 Mg/10 Ml Vial INTRANASAL 05/14/22 12:04 500 mg ONCE ONE Administration MDM - Epistaxis Differential Diagnosis Differential diagnosis: Likely anterior epistaxis and posterior epistaxis Medical Records Attestation: I reviewed the patient's medical records. Lab Data Attestation: I reviewed the patient's lab results. Result diagrams: 05/14/22 14:11 05/14/22 11:30 Labs: Lab Results 05/14/22 05/14/22 05/14/22 Range/Units 11:30 11:30 11:30 WBC 4.4 L (4.8-10.8) X10*3/uL RBC 3.75 L (4.60-5.80) X10*6/uL Hgb 10.8 L (14.0-18.0) g/dl Hct 33.6 L (42.0-52.0) % MCV 89.6 (80.0-98.0) fL MCH 28.8 (27.0-33.0) pg MCHC 32.1 (31.0-36.0) g/dl RDW 14.1 (11.0-16.0) % Plt Count 298 D (160-400) X10*3/uL MPV 9.4 (9.4-12.4) fL Immature Gran % (Auto) 0.2 (0.0-0.4) % Neut % (Auto) 60.3 (45-73) % Lymph % (Auto) 19.3 L (20-40) % Amelia % (Auto) 8.9 (2-11) % Eos % (Auto) 10.6 H (0-4) % Baso % (Auto) 0.7 (0-2) % Lymph # (Auto) 0.8 L (1.2-4.9) X10*3/uL Amelia # (Auto) 0.4 (0.1-1.2) X10*3/uL Eos # (Auto) 0.5 H (0.0-0.4) X10*3/uL Baso # (Auto) 0.0 (0.0-0.2) X10*3/uL Abs Immat Gran (auto) 0.01 (0.00-0.03) X10*3/uL Absolute Neuts (auto) 2.6 (2.0-8.3) x10*3/uL Absolute Nucleated RBC 0.000 (0.0-0.012) X10*3/uL Nucleated RBC % (auto) 0.0 (0.0-0.2) /100WBC PT 38.2 H (10.0-13.1) SEC INR 3.2 H (0.9-1.1) Sodium 135 (135-145) mmol/L Potassium 3.9 (3.3-5.1) mmol/L Chloride 111 H (96-108) mmol/L Carbon Dioxide 23 (22-29) mmol/L Anion Gap 5 L (12-20) BUN 13 (9-16) mg/dL Creatinine 0.79 (0.5-1.4) mg/dL Estim Creat Clear Calc 88.6 Estimated GFR > 60 Random Glucose 97 (60-115) mg/dL Calcium 8.3 L D (8.4-10.2) mg/dL Magnesium 1.8 (1.6-2.6) mg/dL Total Bilirubin 0.4 (0.0-1.0) mg/dL AST 20 (5-37) U/L ALT 16 (0-40) U/L Alkaline Phosphatase 88 (39-117) U/L Total Protein 5.7 L (6.5-8.0) g/dL Albumin 3.2 L (3.5-5.0) g/dL 05/14/22 Range/Units 14:11 WBC 6.3 (4.8-10.8) X10*3/uL RBC 3.76 L (4.60-5.80) X10*6/uL Hgb 10.7 L (14.0-18.0) g/dl Hct 33.6 L (42.0-52.0) % MCV 89.4 (80.0-98.0) fL MCH 28.5 (27.0-33.0) pg MCHC 31.8 (31.0-36.0) g/dl RDW 14.1 (11.0-16.0) % Plt Count 292 (160-400) X10*3/uL MPV 9.3 L (9.4-12.4) fL Immature Gran % (Auto) 0.3 (0.0-0.4) % Neut % (Auto) 71.0 (45-73) % Lymph % (Auto) 14.8 L (20-40) % Amelia % (Auto) 7.8 (2-11) % Eos % (Auto) 5.6 H (0-4) % Baso % (Auto) 0.5 (0-2) % Lymph # (Auto) 0.9 L (1.2-4.9) X10*3/uL Amelia # (Auto) 0.5 (0.1-1.2) X10*3/uL Eos # (Auto) 0.4 (0.0-0.4) X10*3/uL Baso # (Auto) 0.0 (0.0-0.2) X10*3/uL Abs Immat Gran (auto) 0.02 (0.00-0.03) X10*3/uL Absolute Neuts (auto) 4.5 (2.0-8.3) x10*3/uL Absolute Nucleated RBC 0.000 (0.0-0.012) X10*3/uL Nucleated RBC % (auto) 0.0 (0.0-0.2) /100WBC PT (10.0-13.1) SEC INR (0.9-1.1) Sodium (135-145) mmol/L Potassium (3.3-5.1) mmol/L Chloride (96-108) mmol/L Carbon Dioxide (22-29) mmol/L Anion Gap (12-20) BUN (9-16) mg/dL Creatinine (0.5-1.4) mg/dL Estim Creat Clear Calc Estimated GFR Random Glucose (60-115) mg/dL Calcium (8.4-10.2) mg/dL Magnesium (1.6-2.6) mg/dL Total Bilirubin (0.0-1.0) mg/dL AST (5-37) U/L ALT (0-40) U/L Alkaline Phosphatase (39-117) U/L Total Protein (6.5-8.0) g/dL Albumin (3.5-5.0) g/dL Critical Care Time Critical Care Time Critical Care Time: Yes Total Critical Care Time: 60 Attestation: I personally attest to this time spent taking care of the patient Discharge Plan Discharge Clinical Impression: Epistaxis Patient Disposition: Home, Self-Care Instructions: Nosebleed (ED) Additional Instructions: You need to return in 2 days to remove the packing from your nose. If you can make an appointment with the ear nose and throat doctor Dr. Croft please follow-up with him instead. Do not take your Coumadin today or tomorrow and on Sunday we will decide if he should continue to take it. Return if any new or worsening symptoms and follow-up in 2 days with either us or ear nose and throat. Prescriptions: New cephalexin 500 mg capsule 500 mg PO BID 7 Days Qty: 14 0RF No Action finasteride 5 mg Tablet 5 mg PO DAILY paroxetine HCl 10 mg tablet 1 tab PO QAM ascorbic acid (vitamin C) [Vitamin C] 500 mg Tablet 500 mg PO DAILY ondansetron 4 mg tablet,disintegrating 4 mg PO Q8H PRN (Reason: nausea and vomiting) Qty: 14 0RF albuterol sulfate 90 mcg/actuation HFA aerosol inhaler 1 inh inhalation QID PRN (Reason: shortness of breath or wheezing) Qty: 8.5 0RF omeprazole 20 mg capsule,delayed release(DR/EC) 20 mg PO QAM Rx Instructions: TAKE 30 MINUTES BEFORE FIRST MEAL atorvastatin 40 mg tablet 40 mg PO QPM bupropion HCl 150 mg tablet extended release 24 hr 150 mg PO QAM propranolol 60 mg capsule,extended release 24 hr 60 mg PO DAILY cholecalciferol (vitamin D3) 25 mcg (1,000 unit) tablet 25 mcg PO QAM warfarin 5 mg tablet 5 mg PO DAILY Protocol: Dose Management Condition: Sunday (Week One) Dose/Route: 2.5 mg Instruction: 0.5 x 5 mg tablets Condition: Sunday Dose/Route: 5 mg Instruction: 1 x 5 mg tablet Condition: Sunday Dose/Route: 2.5 mg Instruction: 0.5 x 5 mg tablets Condition: Sunday Dose/Route: 2.5 mg Instruction: 0.5 x 5 mg tablets Condition: Dose/Route: 2.5 mg Instruction: 0.5 x 5 mg tablets Condition: Sunday Dose/Route: 2.5 mg Instruction: 0.5 x 5 mg tablets Condition: Sunday Dose/Route: 2.5 mg Instruction: 0.5 x 5 mg tablets Condition: Sunday (Week Two) Dose/Route: 2.5 mg Instruction: 0.5 x 5 mg tablets Condition: Sunday Dose/Route: 2.5 mg Instruction: 0.5 x 5 mg tablets Condition: Sunday Dose/Route: 2.5 mg Instruction: 0.5 x 5 mg tablets Condition: Sunday Dose/Route: 2.5 mg Instruction: 0.5 x 5 mg tablets Condition: Dose/Route: 2.5 mg Instruction: 0.5 x 5 mg tablets Condition: Sunday Dose/Route: 2.5 mg Instruction: 0.5 x 5 mg tablets Condition: Sunday Dose/Route: 2.5 mg Instruction: 0.5 x 5 mg tablets Protocol Text: Adjustment Start Date: Sunday05/08/22 INR Value: 1.8 INR Date: 05/08/22 Recheck Date: 05/18/22 Additional Instructions: INR below range take 5mg today then resume usual dosing no greens today then balance greens and reds in diet Label Comments: PT DC'D DUE TO NOSEBLEED AND IS HESITANT TO RESTART Rx Instructions: PT DC'D DUE TO NOSEBLEED AND IS HESITANT TO RESTART ascorbic acid (vitamin C) 500 mg capsule PO Referrals: Shaji Croft [Physician] - 1 day (for Rhino rocket removal re-evaluation of epistaxis) Khloe Baez PA [Emergency Midlevel Provider] - 2 days (for Rhino rocket removal re-evaluation of epistaxis)
[2022-05-14 11:36] LABS: MANUAL DIFF FLAG NO
[2022-05-14 11:38] LABS: Basophils Percent Auto 0.7 % (0-2); Eosinophils Absolute Auto 0.5 X10*3/uL (0.0-0.4); Eosinophils Percent Auto 10.6 % (0-4); Hematocrit 33.6 % (42.0-52.0); Hemoglobin 10.8 g/dl (14.0-18.0); Imm Gran Abs Auto 0.01 X10*3/uL (0.00-0.03); Imm Gran Pct Auto 0.2 % (0.0-0.4); Lymphocytes Absolute Auto 0.8 X10*3/uL (1.2-4.9); Lymphocytes Percent Auto 19.3 % (20-40); Mean Corpuscular HGB Conc 32.1 g/dl (31.0-36.0); Mean Corpuscular Hemoglobin 28.8 pg (27.0-33.0); Mean Corpuscular Volume 89.6 fL (80.0-98.0); Mean Platelet Volume 9.4 fL (9.4-12.4); Monocytes Absolute Auto 0.4 X10*3/uL (0.1-1.2); Monocytes Percent Auto 8.9 % (2-11); Neutrophils Absolute Auto 2.6 x10*3/uL (2.0-8.3); Neutrophils Percent Auto 60.3 % (45-73); Platelet Count 298 X10*3/uL (160-400); Red Blood Count 3.75 X10*6/uL (4.60-5.80); Red Cell Distribution Width 14.1 % (11.0-16.0); White Blood Count 4.4 X10*3/uL (4.8-10.8)
[2022-05-14 11:44] LABS: INTERNATIONAL NORM RATIO 3.2 (0.9-1.1); Prothrombin Time 38.2 SEC (10.0-13.1)
[2022-05-14 12:05] LABS: Alanine Aminotransferase 16 U/L (0-40); Albumin Level 3.2 g/dL (3.5-5.0); Alkaline Phosphatase 88 U/L (39-117); Anion Gap 5 (12-20); Aspartate Amino Transferase 20 U/L (5-37); Bilirubin Total 0.4 mg/dL (0.0-1.0); Blood Urea Nitrogen 13 mg/dL (9-16); Calcium 8.3 mg/dL (8.4-10.2); Carbon Dioxide 23 mmol/L (22-29); Chloride 111 mmol/L (96-108); Creatinine Clr Calc Pharmacy 88.6; Estimated Glomerular Filt Rate > 60; Glucose Random 97 mg/dL (60-115); Magnesium 1.8 mg/dL (1.6-2.6); Potassium 3.9 mmol/L (3.3-5.1); Sodium 135 mmol/L (135-145); Total Protein 5.7 g/dL (6.5-8.0)
[2022-05-14] MEDS: Tranexamic Acid 1,000 MG/10 ML VIAL 500 MG INTRANASAL (12:21)
[2022-05-14 13:40] VITALS: BP 162/75; PULSE 68; RESP 16; O2SAT 93
--- NOTE | 2022-05-14 13:42 | PC.NURSE ---
Pt resting comfortably. reports no pain. BP 162/75. other vs wnl. bleeding around the nasal plug appears to have subsided.
[2022-05-14 14:15] LABS: MANUAL DIFF FLAG NO
[2022-05-14 14:16] LABS: Basophils Percent Auto 0.5 % (0-2); Eosinophils Absolute Auto 0.4 X10*3/uL (0.0-0.4); Eosinophils Percent Auto 5.6 % (0-4); Hematocrit 33.6 % (42.0-52.0); Hemoglobin 10.7 g/dl (14.0-18.0); Imm Gran Abs Auto 0.02 X10*3/uL (0.00-0.03); Imm Gran Pct Auto 0.3 % (0.0-0.4); Lymphocytes Absolute Auto 0.9 X10*3/uL (1.2-4.9); Lymphocytes Percent Auto 14.8 % (20-40); Mean Corpuscular HGB Conc 31.8 g/dl (31.0-36.0); Mean Corpuscular Hemoglobin 28.5 pg (27.0-33.0); Mean Corpuscular Volume 89.4 fL (80.0-98.0); Mean Platelet Volume 9.3 fL (9.4-12.4); Monocytes Absolute Auto 0.5 X10*3/uL (0.1-1.2); Monocytes Percent Auto 7.8 % (2-11); Neutrophils Absolute Auto 4.5 x10*3/uL (2.0-8.3); Platelet Count 292 X10*3/uL (160-400); Red Blood Count 3.76 X10*6/uL (4.60-5.80); Red Cell Distribution Width 14.1 % (11.0-16.0); White Blood Count 6.3 X10*3/uL (4.8-10.8)
== END 2022-05-14 19:01 | disposition home or self-care (01) ==
PROVIDERS: Physician Assistant Medical; Emergency Provider Emergency Medicine
DX: R04.0 Epistaxis (principal); Z79.899 Other long term (current) drug therapy
CPT/HCPCS: 36415; 80053; 83735; 85025; 85610; 99284

== ENCOUNTER → 2022-05-17 10:52 | Outpatient (BNVA) | payer MEDICARE, SELFPAY | PROVIDERS: PCP Internal Medicine Medical Oncology; Visit Provider Internal Medicine | DX: I48.91 Unspecified atrial fibrillation (principal); Z79.01 Long term (current) use of anticoagulants; Z51.81 Encounter for therapeutic drug level monitoring | CPT/HCPCS: 85610; 99211 ==

== ENCOUNTER → 2022-05-22 11:10 | Outpatient (BNVA) | payer MEDICARE, SELFPAY | PROVIDERS: PCP Internal Medicine Medical Oncology; Visit Provider Internal Medicine | DX: I48.91 Unspecified atrial fibrillation (principal); Z79.01 Long term (current) use of anticoagulants; Z51.81 Encounter for therapeutic drug level monitoring | CPT/HCPCS: 85610; 99211 ==

== ENCOUNTER 2022-05-24 23:22 | Emergency (ER) | payer MEDICARE, SELFPAY ==
--- NOTE | ~2022-05-24 | XR_ITS ---
EXAMINATION: CHEST, LEFT SHOULDER CLINICAL INFORMATION: Left-sided rib pain and shoulder pain after fall COMPARISON: Chest radiograph 04/17/2020 TECHNIQUE: Single view chest, 3 views left shoulder FINDINGS: Chest: The heart and pulmonary vessels appear normal. Multiple areas of ill-defined opacity are present in the lungs are minimally worse than prior. Atelectasis is present at the left lung base. No rib fractures are seen. No pleural effusions or pneumothorax. Left shoulder: Some minimal degenerative changes are present shoulder with some subchondral sclerosis and cyst formation. Some mild osteophytes are present. No fractures or dislocations are seen. XR/XR shoulder LT min 2V IMPRESSION: 1. 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 No rib fractures are seen. 2. Degenerative changes left shoulder without evidence of fracture.
--- NOTE | ~2022-05-24 | XR_ITS ---
EXAMINATION: CHEST, LEFT SHOULDER CLINICAL INFORMATION: Left-sided rib pain and shoulder pain after fall COMPARISON: Chest radiograph 04/17/2020 TECHNIQUE: Single view chest, 3 views left shoulder FINDINGS: Chest: The heart and pulmonary vessels appear normal. Multiple areas of ill-defined opacity are present in the lungs are minimally worse than prior. Atelectasis is present at the left lung base. No rib fractures are seen. No pleural effusions or pneumothorax. Left shoulder: Some minimal degenerative changes are present shoulder with some subchondral sclerosis and cyst formation. Some mild osteophytes are present. No fractures or dislocations are seen. XR/XR chest 1V IMPRESSION: 1. 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 No rib fractures are seen. 2. Degenerative changes left shoulder without evidence of fracture.
--- NOTE | ~2022-05-24 | CT_ITS ---
EXAMINATION: CT CHEST WITHOUT CONTRAST CLINICAL INFORMATION: Fall, left chest wall tenderness. COMPARISON: Chest radiograph 05/24/2022. CTA chest 02/23/2022. TECHNIQUE: Multidetector volumetric CT imaging of the chest was done. Axial MIP volume rendering provided. Sagittal and coronal reformatted images were obtained. This CT examination was performed using dose optimization techniques as appropriate, variously including the following: *Automated exposure control *Adjustment of mA and/or kV according to patient size (this includes techniques or standardized protocols for targeted exams where dose is matched to indication/reason for exam; i.e. extremities or head) *Use of iterative reconstruction technique DLP: 488 mGy-cm FINDINGS: LUNGS: Emphysematous changes. Increased bronchial wall thickening and mucus plugging in the lower lobes. New patchy airspace opacities in the lower lobes and lingula. A 8 mm pulmonary nodule in the right lower lobe (4:240) is increased in size from 6 mm on 02/23/2022. Several sub-3 mm pulmonary nodules in the right upper lobe, for instance on MIP images 47 through 59, series 10 are new. The central airways are patent. MEDIASTINUM: Normal heart size. No pericardial effusion. Increased size of mediastinal and hilar lymph nodes, for instance measuring 1.4 cm in short axis in the precarinal region on image 28, series 3 and 1.6 cm short axis in the right hilum (4:258). Limited views of the thyroid without significant abnormality. The ascending thoracic aorta is of normal diameter with atherosclerotic disease. CORONARY ARTERY CALCIFICATION: Present. PLEURA: No pleural effusion or pneumothorax. AXILLA: No pathologically enlarged lymph nodes. No chest wall mass. UPPER ABDOMEN: Nonobstructive 5 mm calculus in the left kidney (3:71). Nonspecific gastric distention. Small hiatal hernia. OSSEOUS STRUCTURES: New mildly displaced acute fractures in the left eighth through 10th ribs. Subacute to chronic appearing fractures on the left anterior third and fourth ribs. Multiple subacute to chronic appearing right-sided rib fractures with callus formation and increased sclerosis. CT/CT chest wo IV con IMPRESSION: 1. New displaced acute fractures in the left eighth, ninth and tenth ribs. 2. Multiple subacute to chronic appearing bilateral rib fractures. 3. New patchy airspace opacities in the lower lobes and lingula with increased bronchial wall thickening and mucus plugging in the lower lobes. These findings are concerning for an acute infectious or inflammatory process of the small airways. 4. A 8 mm pulmonary nodule in the right lower lobe is increased in size from 6 mm on 02/23/2022. There are also several few sub-3 mm bilateral pulmonary nodules. Assuming patient has no history of malignancy, recommend follow-up per Fleischner Society recommendations. According to the UPDATED 2017 Fleischner Society recommendations, the advised followup imaging for multiple solid nodules, the largest measuring 6 mm or greater, is: LOW RISK PATIENT: CT at 3-6 months, then consider CT at 18-24 months. HIGH RISK PATIENT: CT at 3-6 months, then at 18-24 months. 1. Increased size of mediastinal and hilar lymph nodes. 2. Nonobstructive 5 mm calculus in the left kidney. Fleischner guidelines were followed.
[2022-05-24 23:31] VITALS: BP 178/73; PULSE 87; RESP 18; TEMP 36.7; O2SAT 98; BMI 21.3
[2022-05-25 00:40] VITALS: BP 145/77; PULSE 82; RESP 25; TEMP 37.2; O2SAT 96
--- NOTE | 2022-05-25 01:20 | ED_ITS ---
HPI - Fall General Chief Complaint: Fall Stated Complaint: fall, left side Time Seen by Provider: 05/25/22 00:05 Source: patient Mode of arrival: ambulatory Limitations: no limitations History of Present Illness HPI Narrative: 77-year-old male who presents emergency department for evaluation of injuries from a fall. 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 He states that he blood new boots and he tripped on a crack causing him to fall forward. The patient states he landed on his left shoulder and left chest. He denied any head injury or loss of consciousness. He was unable to get up but a team otr truck driver assisted him and he was able to stand and walk without any difficulty. He is currently complaining of left shoulder pain. He describes his pain is a dull pain which is 9/10 at its worst. He states that he has a rotator cuff injury and has difficulty moving his left shoulder at its baseline. States that the pain is worse with movement. He is also complaining of left-sided chest pain. He describes this pain is a dull ache as well which is 10/10, worse with movement and worse with breathing. The patient states that he was hospitalized approximately 1 month prior for COVID-19 pneumonia. He states that since that time he has been feeling short of breath he states that he is currently more short of breath than his baseline. He denied any head injury. He denies nausea, vomiting, numbness or weakness. Patient does have a history of atrial fibrillation but he states that he is not on blood thinners since he was having nose bleeds in these medications needed to be stopped. Related Data Home Medications Medication Instructions Recorded Confirmed atorvastatin 40 mg tablet 40 mg PO QPM 05/10/20 05/08/22 omeprazole 20 mg capsule,delayed 20 mg PO QAM 05/10/20 05/08/22 release bupropion HCl 150 mg 24 hr tablet, 150 mg PO QAM 01/19/22 05/08/22 extended release cholecalciferol (vitamin D3) 25 25 mcg PO QAM 01/19/22 05/08/22 mcg (1,000 unit) tablet propranolol 60 mg capsule,24 60 mg PO DAILY 01/19/22 05/08/22 hr,extended release finasteride 5 mg tablet 5 mg PO DAILY 02/23/22 05/08/22 ascorbic acid (vitamin C) 500 mg 500 mg PO DAILY 04/11/22 05/08/22 tablet (Vitamin C) paroxetine HCl 10 mg tablet 1 tab PO QAM 04/11/22 05/08/22 ascorbic acid (vitamin C) 500 mg mg PO 04/19/22 05/08/22 capsule warfarin 2.5 mg tablet 2.5 mg PO DAILY 05/22/22 05/22/22 Previous Rx's Medication Instructions Recorded ondansetron 4 mg disintegrating 4 mg PO Q8H PRN nausea and 04/13/22 tablet vomiting #14 tabs albuterol sulfate 90 mcg/actuation 1 inh inhalation QID PRN shortness 04/17/22 aerosol inhaler of breath or wheezing #8.5 grams cephalexin 500 mg capsule 500 mg PO BID 7 days #14 caps 05/14/22 Allergies Allergy/AdvReac Type Severity Reaction Status Date / Time indomethacin [From INDOCIN] Allergy Intermediate RASH Verified 05/22/22 11:36 oxycodone [OXYCODONE] Allergy Intermediate VOMITING/RA Verified 05/22/22 11:36 SH Sulfa (Sulfonamide Allergy Intermediate BLISTERS, Verified 05/22/22 11:36 Antibiotics) sore on [SULFA (SULFONAMIDE the end of ANTIBIOTICS)] his penis acetaminophen [Percocet] AdvReac Unknown vomiting Verified 05/22/22 11:36 Review of Systems Review of Systems: Yes all other systems are reviewed and are negative [facility] Past Medical History [facility] Narrative: Social history: 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 He denies tobacco use but he is a former smoker. He denies alcohol use. Denies drug use. Medical History A-fib Bilateral knee pain BPH w urinary obs/LUTS COVID-19 Osteoarthritis of left knee Recurrent UTI (urinary tract infection) Rotator cuff arthropathy of both shoulders Surgical History Status post right knee replacement Family History Family History Mother No problems noted. Father No problems noted. Social History Social History Household Members: Spouse Housing: House Do you presently have visiting nurse or other home services: No Patient Tobacco Use Status: Former Tobacco user Advance Directives: No Advance Directives Information Provided: No Advance Directives Date on File: 02/28/22 service: No Current occupation: [employer] - right handed Current occupational exposures/hazards: No Physical Exam Vital Signs: Vital Signs: Last Vital Signs Temp 99 F 05/25/22 00:40 Pulse 82 05/25/22 00:40 Resp 25 H 05/25/22 00:40 BP 145/77 H 05/25/22 00:40 Pulse Ox 96 05/25/22 00:40 O2 Del Method 05/25/22 00:40 BMI result Body Mass Index 21.3 Const: Other: Awake, alert, male patient, very pleasant cooperative, he does not appear to be in distress, answers all questions appropriate HEENT: Head: Yes normal to inspection, Yes normocephalic and Yes atraumatic Ears: external ears normal General nose exam: Normal external nose present Face and sinus: Yes normal facial exam Mouth: Normal oral and palatal mucosa present Throat: Yes posterior oropharynx normal Eyes: General: appearance normal, both eyes and all related structures Pupils: Equal, round and reactive pupils present Neck: Neck: Yes normal visual inspection, Yes no lymphadenopathy, Yes trachea midline and Yes supple Chest: Other: Patient has significant tenderness palpation of his left lateral chest, there is no crepitus Resp: Effort & Inspection: normal respiratory effort and able to speak in complete sentences Auscultation: clear to auscultation bilaterally Cardio: Rate: regular rate Rhythm: abnormal rhythm irregularly irregular Heart sounds: S1 normal heart sound present, S2 normal heart sound present and no murmurs GI: Inspection: Yes normal to inspection Palpation (GI): Soft to palpation, nontender and no guarding Auscultation: normal bowel sounds : General: Yes no CVA tenderness Back/Spine/Pelvis: Back: no CVA tenderness Skin: General skin exam: no rashes or lesions noted Neuro: Cranial nerves: Yes CN's II-XII intact bilaterally and Yes Equal, round and reactive pupils present Cognition (Neuro): normal cognition Motor exam (neuro): 5/5 motor strength present throughout Extrem: Other: Patient has tenderness palpation over his left shoulder, there is no ecchymosis or obvious deformity, has limited range of motion of the shoulder secondary to pain and chronic rotator cuff injury General: Yes normal to inspection Psych: Appearance: grossly normal Speech and movement: Normal speech and movement present Affect: normal affect Attitude: cooperative Thought process: Normal thought process present Thought content: Normal thought content present Course Course Course Narrative: 77-year-old male who presents emergency department for evaluation of injury to his left shoulder left chest secondary to a trip and fall at work. Patient had no head injury. On examination he does have tenderness palpation of his left shoulder in his left chest. X-ray of the left shoulder revealed no acute fracture but the patient does have osteoarthritis. One-view chest x-ray revealed no pneumothorax and no obvious rib fractures. Given the patient's significant tenderness and his age, I did order CT scan of the chest to evaluate for possible rib fractures. Patient was given Tylenol 975 mg orally for his pain. 0233: CT scan of the chest without IV contrast radiology reading as follows: IMPRESSION: 1. New displaced acute fractures in the left eighth, ninth and tenth ribs. 2. Multiple subacute to chronic appearing bilateral rib fractures. . New patchy airspace opacities in the lower lobes and lingula with increased bronchial wall thickening and mucus plugging in the lower lobes. These findings are concerning for an acute infectious or process of the small airways. 4. A 8 mm pulmonary nodule in the right lower lobe is increased in size from 6 mm on 02/23/2022. There are also several few sub-3 mm bilateral pulmonary nodules. Assuming patient has no history of malignancy, recommend follow-up per Fleischner Society recommendations. According to the UPDATED 2017 Fleischner Society recommendations, the advised followup imaging for multiple solid nodules, the largest measuring 6 mm or greater, is: LOW RISK PATIENT: CT at 3-6 months, then consider CT at 18-24 months. HIGH RISK PATIENT: CT at 3-6 months, then at 18-24 months. 1. Increased size of mediastinal and hilar lymph nodes. 2. Nonobstructive 5 mm calculus in the left kidney. Fleischner guidelines were followed. Dictated By:Deepti VannSigned By:<Electronically signed by Deepti Vann in [place]>05/25/22 0219 The patient has 3 displaced left-sided displaced rib fractures, 8, 9 and 10 with no pneumothorax. The patient had COVID 1 week prior and I suspect that the majority of the lung findings are secondary to his COVID pneumonia/lung injury. The patient will need to follow-up with his PCP and may need referral to pulmonology. I did discuss this with the patient. I created a rib belt using a 6 in Piter wrap and this did give the patient some relief his pain. He was advised to purchase a Velcro rib belt and to take Tylenol 1st pain. He was given a note not return to work for 2 weeks. Medications Administered Discontinued Medications Generic Name Dose Route Start Last Admin Trade Name Too PRN Reason Stop Dose Admin Acetaminophen 975 mg 05/25/22 01:18 05/25/22 01:31 Acetaminophen 325 Mg Tablet PO 05/25/22 01:19 975 mg ONCE STA Administration Discharge Plan Discharge Clinical Impression: Incidental lung nodule, greater than or equal to 8mm Multiple rib fractures Qualifiers: Encounter type: initial encounter Fracture type: closed Laterality: left Qualified Code(s): S22.42XA - Multiple fractures of ribs, left side, initial encounter for closed fracture Contusion of left shoulder Qualifiers: Encounter type: initial encounter Qualified Code(s): S40.012A - Contusion of left shoulder, initial encounter Fall Qualifiers: Encounter type: initial encounter Qualified Code(s): W19.XXXA - Unspecified fall, initial encounter Patient Disposition: Home, Self-Care Instructions: Rib Fracture (ED), Pulmonary Nodules (ED) Additional Instructions: The x-ray of your left shoulder did not reveal any broken bones. The CT scan of your chest revealed left-sided rib fractures of ribs 8, 9 and 10 I created a rib belt for using an Piter wrap. You should purchase a rib belt from a pharmacy in this will help reduce your pain. Take Tylenol (acetaminophen) 500 mg pills, 2 pills every 4 to 6 hours as needed for pain. The CT scan of your lungs revealed several abnormalities in your lungs which I suspect is left over from your COVID lung infection however it is important that you follow-up with your primary care doctor to discuss these findings especially the pulmonary nodules. Follow-up with your doctor in 2 days. Please return to the emergency department if your symptoms get worse or if you develop any symptoms that are concerning to you. See the work note Below is the reading from the radiologist, you should discuss this with your primary care doctor. IMPRESSION: 1. New displaced acute fractures in the left eighth, ninth and tenth ribs. 2. Multiple subacute to chronic appearing bilateral rib fractures. 3. New patchy airspace opacities in the lower lobes and lingula with increased bronchial wall thickening and mucus plugging in the lower lobes. These findings are concerning for an acute infectious or inflammatory process of the small airways. 4. A 8 mm pulmonary nodule in the right lower lobe is increased in size from 6 mm on 02/23/2022. There are also several few sub-3 mm bilateral pulmonary nodules. Assuming patient has no history of malignancy, recommend follow-up per Fleischner Society recommendations. According to the UPDATED 2017 Fleischner Society recommendations, the advised followup imaging for multiple solid nodules, the largest measuring 6 mm or greater, is: LOW RISK PATIENT: CT at 3-6 months, then consider CT at 18-24 months. HIGH RISK PATIENT: CT at 3-6 months, then at 18-24 months. 1. Increased size of mediastinal and hilar lymph nodes. 2. Nonobstructive 5 mm calculus in the left kidney. Fleischner guidelines were followed. Dictated By:Deepti VannSigned By:<Electronically signed by Deepti Vann in [place]>05/25/22 0219 Prescriptions: No Action finasteride 5 mg Tablet 5 mg PO DAILY paroxetine HCl 10 mg tablet 1 tab PO QAM ascorbic acid (vitamin C) [Vitamin C] 500 mg Tablet 500 mg PO DAILY ondansetron 4 mg tablet,disintegrating 4 mg PO Q8H PRN (Reason: nausea and vomiting) Qty: 14 0RF albuterol sulfate 90 mcg/actuation HFA aerosol inhaler 1 inh inhalation QID PRN (Reason: shortness of breath or wheezing) Qty: 8.5 0RF cephalexin 500 mg capsule 500 mg PO BID 7 Days Qty: 14 0RF omeprazole 20 mg capsule,delayed release(DR/EC) 20 mg PO QAM Rx Instructions: TAKE 30 MINUTES BEFORE FIRST MEAL atorvastatin 40 mg tablet 40 mg PO QPM bupropion HCl 150 mg tablet extended release 24 hr 150 mg PO QAM propranolol 60 mg capsule,extended release 24 hr 60 mg PO DAILY cholecalciferol (vitamin D3) 25 mcg (1,000 unit) tablet 25 mcg PO QAM ascorbic acid (vitamin C) 500 mg capsule PO warfarin 2.5 mg tablet 2.5 mg PO DAILY Protocol: Dose Management Condition: Sunday (Week One) Dose/Route: 0 mg Instruction: 0 tablets Condition: Sunday Dose/Route: 0 mg Instruction: 0 tablets Condition: Sunday Dose/Route: 0 mg Instruction: 0 tablets Condition: Sunday Dose/Route: 0 mg Instruction: 0 tablets Condition: Dose/Route: 0 mg Instruction: 0 tablets Condition: Sunday Dose/Route: 2.5 mg Instruction: 1 x 2.5 mg tablet Condition: Sunday Dose/Route: 2.5 mg Instruction: 1 x 2.5 mg tablet Condition: Sunday (Week Two) Dose/Route: 2.5 mg Instruction: 1 x 2.5 mg tablet Condition: Sunday Dose/Route: 2.5 mg Instruction: 1 x 2.5 mg tablet Condition: Sunday Dose/Route: 2.5 mg Instruction: 1 x 2.5 mg tablet Condition: Sunday Dose/Route: 2.5 mg Instruction: 1 x 2.5 mg tablet Condition: Dose/Route: 2.5 mg Instruction: 1 x 2.5 mg tablet Condition: Sunday Dose/Route: 2.5 mg Instruction: 1 x 2.5 mg tablet Condition: Sunday Dose/Route: 2.5 mg Instruction: 1 x 2.5 mg tablet Protocol Text: Adjustment Start Date: Sunday05/22/22 INR Value: 1.0 INR Date: 05/22/22 Recheck Date: 05/29/22 Stand Alone Forms: Work/School Release
[2022-05-25] MEDS: Acetaminophen 325 MG TABLET 975 MG PO (01:31)
== END 2022-05-25 02:51 | disposition home or self-care (01) ==
PROVIDERS: Emergency Provider Emergency Medicine Emergency Medical Services; PCP Orthopaedic Surgery
DX: S40.012A Contusion of left shoulder, initial encounter (principal); S22.42XA Multiple fractures of ribs, left side, initial encounter for closed fracture; R07.89 Other chest pain; R91.1 Solitary pulmonary nodule; M25.512 Pain in left shoulder; W01.10XA Fall on same level from slipping, tripping and stumbling with subsequent striking against unspecified object, initial encounter; Y93.9 Activity, unspecified; Y92.9 Unspecified place or not applicable; Y99.9 Unspecified external cause status; Z79.899 Other long term (current) drug therapy; Z87.891 Personal history of nicotine dependence
CPT/HCPCS: 71045; 71250; 73030; 99284

== ENCOUNTER → 2022-05-30 11:16 | Outpatient (BNVA) | payer MEDICARE, SELFPAY | PROVIDERS: PCP Internal Medicine Medical Oncology; Visit Provider Internal Medicine | DX: I48.91 Unspecified atrial fibrillation (principal); Z79.01 Long term (current) use of anticoagulants; Z51.81 Encounter for therapeutic drug level monitoring | CPT/HCPCS: 85610; 99211 ==

== ENCOUNTER → 2022-06-02 11:12 | Outpatient (BNVA) | payer MEDICARE, SELFPAY | PROVIDERS: PCP Internal Medicine Medical Oncology; Visit Provider Internal Medicine | DX: I48.91 Unspecified atrial fibrillation (principal); Z79.01 Long term (current) use of anticoagulants; Z51.81 Encounter for therapeutic drug level monitoring | CPT/HCPCS: 85610; 99211 ==

== ENCOUNTER → 2022-06-06 09:49 | Outpatient (BNVA) | payer MEDICARE, SELFPAY | PROVIDERS: PCP Internal Medicine Medical Oncology; Visit Provider Internal Medicine | DX: I48.91 Unspecified atrial fibrillation (principal); Z79.01 Long term (current) use of anticoagulants; Z51.81 Encounter for therapeutic drug level monitoring | CPT/HCPCS: 85610; 99211 ==

== ENCOUNTER → 2022-06-13 10:41 | Outpatient (BNVA) | payer MEDICARE, SELFPAY | PROVIDERS: PCP Internal Medicine Medical Oncology; Visit Provider Internal Medicine | DX: I48.91 Unspecified atrial fibrillation (principal); Z79.01 Long term (current) use of anticoagulants; Z51.81 Encounter for therapeutic drug level monitoring | CPT/HCPCS: 85610; 99211 ==

== ENCOUNTER → 2022-06-19 09:26 | Outpatient (REF) | payer MEDICARE, SELFPAY ==
--- NOTE | ~2022-06-19 | NM_ITS ---
Myocardial perfusion study Indication: Atrial fibrillation to evaluate for myocardial ischemia Technique: The patient was brought in for a Lexiscan perfusion study on 06/19/2022. Patient performed low-level exercise and was injected 0.4 mg of Lexiscan intravenously. Within a minute of injection, 30 mCi of sestamibi was given intravenously. Images were obtained using the SPECT gamma camera interlaced with the gating device. Images were obtained in supine position. Resting perfusion study was performed on 06/20/2019. Patient was administered 30 mCi of sestamibi intravenously at rest. Images were then obtained in supine position. Images obtained with and without CT attenuation. Total DLP 129 mGy-cm. Images were processed with the software and compared side to side in short axis, horizontal long axis and vertical long axis views. Findings: The stress perfusion study showed non attenuated images show mildly reduced uptake in the basal and mid inferior wall as well as the basal inferolateral and lateral wall of the LV myocardium. Remainder of the LV myocardium is normally perfused. Attenuation corrected images show minimal thinning of the apex of the LV myocardium.. The gated study shows normal LV systolic function with calculated LVEF of 74%. LV cavity is normal in size. The gated study shows normal systolic wall thickening and contraction of segments. Resting study shows no change in perfusion pattern compared to stress perfusion study. Gating at rest reveals normal systolic wall motion with ejection fraction at greater than 70%. The findings are consistent with normal myocardial perfusion. NM/NM romel perf SPECT rest & str Impression: 1. Myocardial perfusion imaging study shows normal myocardial perfusion 2. Gated LVEF is greater than 70% 3. Transient ischemic dilatation not present EKG is nondiagnostic for ischemia
--- NOTE | 2022-06-19 09:31 | CA_ITS ---
Acquisition Time: 2022-06-19 09:49:54 Total Exercise Time: 00:02:00 Test Indications: AFIB, RBBB Medications: SEE CHART Protocol: LEXISCAN Max HR: 103 BPM 71% of Pred: 145 BPM Max BP: 138/082 mmHG Max Work Load: 1.0 METS Pharmacological stress test with Lexiscan injection, while sitting and kicking his legs, without anginal symptoms, without arrythmia, with normotensive response to injection, with nondiagnostic EKG for ischemia. Nuclear images pending. Test reviewed with Dr Jaime. Referred By: Mahesh Tapia Overread By: SUNNY LARIOS
--- NOTE | 2022-06-19 09:31 | HM_ITS ---
Conclusion: 1. Patient was monitored for total period of 2 days and 23 hours 2. Baseline was atrial fibrillation with average heart of 75 beats per minute with underlying bundle-branch block with good rate control 3. No significant pauses greater than 5 seconds noted 4. Total of 1495 PVCs noted with total burden of 0.5% consistent with occasional PVCs 5. No patient reported events MTDD
== END ==
LOC: HO.CARD 09:26
PROVIDERS: PCP Internal Medicine Medical Oncology; Visit Provider Internal Medicine Cardiovascular Disease
DX: I48.91 Unspecified atrial fibrillation (principal)
CPT/HCPCS: 78452; 93017; 93242; A9500; J2785

== ENCOUNTER → 2022-06-23 10:34 | Outpatient (BNVA) | payer MEDICARE, SELFPAY | PROVIDERS: PCP Internal Medicine Medical Oncology; Visit Provider Internal Medicine | DX: I48.91 Unspecified atrial fibrillation (principal); Z79.01 Long term (current) use of anticoagulants; Z51.81 Encounter for therapeutic drug level monitoring | CPT/HCPCS: 85610; 99211 ==

== ENCOUNTER → 2022-06-30 09:32 | Outpatient (BNVA) | payer MEDICARE, SELFPAY | PROVIDERS: PCP Internal Medicine Medical Oncology; Visit Provider Internal Medicine | DX: I48.91 Unspecified atrial fibrillation (principal); Z79.01 Long term (current) use of anticoagulants; Z51.81 Encounter for therapeutic drug level monitoring | CPT/HCPCS: 85610; 99211 ==

== ENCOUNTER → 2022-07-06 10:11 | Outpatient (BNVA) | payer MEDICARE, SELFPAY | PROVIDERS: PCP Internal Medicine Medical Oncology; Visit Provider Internal Medicine | DX: I48.91 Unspecified atrial fibrillation (principal); Z79.01 Long term (current) use of anticoagulants; Z51.81 Encounter for therapeutic drug level monitoring | CPT/HCPCS: 85610; 99211 ==

== ENCOUNTER 2022-07-17 09:45 | Outpatient (REF) | payer MEDICARE, SELFPAY ==
[2022-07-17 09:57] LABS: MANUAL DIFF FLAG NO
[2022-07-17 10:18] LABS: Basophils Absolute Auto 0.1 X10*3/uL (0.0-0.2); Basophils Percent Auto 1.2 % (0-2); Eosinophils Absolute Auto 0.3 X10*3/uL (0.0-0.4); Eosinophils Percent Auto 5.4 % (0-4); Hematocrit 37.5 % (42.0-52.0); Hemoglobin 11.8 g/dl (14.0-18.0); Imm Gran Abs Auto 0.02 X10*3/uL (0.00-0.03); Imm Gran Pct Auto 0.3 % (0.0-0.4); Lymphocytes Absolute Auto 1.4 X10*3/uL (1.2-4.9); Mean Corpuscular HGB Conc 31.5 g/dl (31.0-36.0); Mean Corpuscular Hemoglobin 27.5 pg (27.0-33.0); Mean Corpuscular Volume 87.4 fL (80.0-98.0); Monocytes Absolute Auto 0.6 X10*3/uL (0.1-1.2); Monocytes Percent Auto 9.9 % (2-11); Neutrophils Absolute Auto 3.5 x10*3/uL (2.0-8.3); Neutrophils Percent Auto 59.2 % (45-73); Platelet Count 283 X10*3/uL (160-400); Red Blood Count 4.29 X10*6/uL (4.60-5.80); Red Cell Distribution Width 13.2 % (11.0-16.0); White Blood Count 5.9 X10*3/uL (4.8-10.8)
[2022-07-17 11:11] LABS: Alanine Aminotransferase 10 U/L (0-40); Albumin Level 3.7 g/dL (3.5-5.0); Alkaline Phosphatase 107 U/L (39-117); Anion Gap 10 (12-20); Aspartate Amino Transferase 15 U/L (5-37); Bilirubin Total 1.1 mg/dL (0.0-1.0); Blood Urea Nitrogen 14 mg/dL (9-16); Calcium 9.4 mg/dL (8.4-10.2); Carbon Dioxide 26 mmol/L (22-29); Chloride 109 mmol/L (96-108); Cholesterol 122 mg/dL; Estimated Glomerular Filt Rate > 60; Glucose Random 90 mg/dL (60-115); HDL Cholesterol 46 mg/dL; LDL Cholesterol Calculated 54 mg/dl; Potassium 4.2 mmol/L (3.3-5.1); Sodium 141 mmol/L (135-145); Total Protein 6.2 g/dL (6.5-8.0); Triglycerides 112 mg/dL
[2022-07-17 11:27] LABS: Prostate Specific Antigen 4.21 ng/mL (<0.05-4.0)
== END 2022-07-17 09:46 | disposition home or self-care (01) ==
LOC: HO.LAB 09:45
PROVIDERS: PCP Internal Medicine Medical Oncology; Visit Provider Internal Medicine Medical Oncology
DX: Z12.5 Encounter for screening for malignant neoplasm of prostate (principal); I10 Essential (primary) hypertension; E78.5 Hyperlipidemia, unspecified; N40.1 Benign prostatic hyperplasia with lower urinary tract symptoms
CPT/HCPCS: 36415; 80053; 80061; 84153; 85025

== ENCOUNTER → 2022-07-20 10:16 | Outpatient (BNVA) | payer MEDICARE, SELFPAY | PROVIDERS: PCP Internal Medicine Medical Oncology; Visit Provider Internal Medicine | DX: I48.91 Unspecified atrial fibrillation (principal); Z79.01 Long term (current) use of anticoagulants; Z51.81 Encounter for therapeutic drug level monitoring | CPT/HCPCS: 85610; 99211 ==

== ENCOUNTER → 2022-07-27 10:21 | Outpatient (BNVA) | payer MEDICARE, SELFPAY | PROVIDERS: PCP Internal Medicine Medical Oncology; Visit Provider Internal Medicine | DX: I48.91 Unspecified atrial fibrillation (principal); Z51.81 Encounter for therapeutic drug level monitoring; Z79.01 Long term (current) use of anticoagulants | CPT/HCPCS: 85610; 99211 ==

== ENCOUNTER 2022-08-01 07:50 | Outpatient (REF) | payer MEDICARE, SELFPAY ==
--- NOTE | ~2022-08-01 | PE_ITS ---
EXAMINATION: Fluorine-18 FDG PET/CT Scan CLINICAL INDICATION: Initial treatment management. Pulmonary nodule. Patient states fall with 3 broken ribs May,. PROCEDURE: 48 minutes following the intravenous administration of 16.9 mCi of fluorine 18 FDG, images from the base of the skull to the mid thighs were obtained using a combined PET/CT scanner with CT scan based attenuation correction. No oral contrast was administered. No intravenous contrast was administered. Transverse, coronal, sagittal, and volume reconstruction projections were obtained. The patient's blood glucose as determined by a finger stick, was 87 mg/dl immediately prior to injection. Total CT exam dose-length product 368.00 mGy-cm * These CT images were obtained using dose optimization techniques as appropriate, variously including the following: Automated exposure control * Adjustment of mA and/or kV according to patient size (this includes techniques or standardized protocols for targeted exams where dose is matched to indication/reason for exam; i.e. extremities or head) * Use of iterative reconstruction technique COMPARISON: No previous PET/CT scan is available for comparison. CT scans of the abdomen and pelvis dated 08/01/2022, the same date as this PET scan and of the chest dated 05/25/2022 are available for comparison. FINDINGS: (Slice numbers described in this report are numbered superiorly to inferiorly with slice #1 in the head) NECK AND VISUALIZED HEAD: No foci of abnormal FDG activity are noted. The distribution of FDG activity is physiological. There is no cervical lymphadenopathy. THORAX: The 0.8 cm right lower lobe pulmonary nodule visualized on the 05/25/2022 CT scan is again visualized (left suspicious slice 185/698) and appears unchanged. This shows no abnormal FDG activity but is at the lower limits of resolution of the FDG PET images. Sub 0.3 cm nodules in the right upper lobe visualized on the 05/25/2022 CT scan are not definitely visualized on these nondiagnostic CT images. A 0.9 x 0.5 cm subpleural posterolateral left lower lobe pulmonary nodule (slice 227/698) is unchanged from 05/25/2022 and is too small to be characterized on the FDG PET images. No additional pulmonary nodules are visualized. Bilateral lower lobe groundglass opacities present on 05/25/2022 are markedly improved with only some minimal dependent atelectasis now present in the bases bilaterally. There are no foci of abnormal FDG activity present in the chest. There is no pleural or pericardial fluid, or pneumothorax. There is no mediastinal, supraclavicular, or axillary lymphadenopathy. ABDOMEN AND PELVIS: There are no foci of abnormal FDG activity in the abdomen or pelvis. There is mild FDG activity present throughout the gastrointestinal tract without a suspicious focal component, likely physiological. There is diverticulosis without evidence of diverticulitis. The hollow viscera are otherwise unremarkable. The liver, gallbladder, pancreas, and adrenal glands are unremarkable. There is a calcified granuloma in the lower pole the spleen, but the spleen is otherwise unremarkable. A densely calcified 0.3 x 0.5 cm calculus at the ureteropelvic junction is present with no associated hydronephrosis. This calculus appears unchanged compared to the contemporaneous 08/01/2022 CT scan of the abdomen and pelvis. The kidneys are otherwise unremarkable. The prostate gland is enlarged measuring 6.9 cm in largest transverse dimension. There is no abnormal FDG activity in the prostate. The pelvic organs are otherwise unremarkable. MUSCULOSKELETAL: There is mild FDG activity associated with slightly displaced fractures in the posterolateral aspects of the left eighth, ninth, and 10th ribs no additional foci of abnormal FDG activity are present in the osseous structures. There are diffuse degenerative changes in the spine, most severely in the mid and lower thoracic spine. There are no suspicious sclerotic or lytic lesions visualized. VASCULAR: Diffuse vascular calcifications including coronary are noted. PET/PET CT fusion whole body IMPRESSION: 1. There is no abnormal FDG activity associated with a 0.8 cm right lower lobe pulmonary nodule. This suggests a benign etiology, however this nodule is at the lower limits of resolution on the FDG PET images and may be too small to be properly characterized on the FDG PET images. Because approximately 10% of pulmonary malignancies demonstrate no abnormal FDG activity, if biopsy of this nodule is not obtained, followup with diagnostic CT scan in 3-6 months is recommended. 2. An additional subcentimeter nodule posterolaterally in the left lower lobe is stable from prior studies, but is too small to be characterized on the FDG PET images. Continued monitoring this with diagnostic CT as above is recommended. 3. Nephrolithiasis. 4. Vascular calcifications including coronary.
== END 2022-08-01 07:51 | disposition home or self-care (01) ==
LOC: HO.PET 07:50
PROVIDERS: PCP Internal Medicine Medical Oncology; Visit Provider Internal Medicine Medical Oncology
DX: Z13.89 Encounter for screening for other disorder (principal)

== ENCOUNTER 2022-08-01 14:02 | Inpatient (IN) | payer MEDICARE, SELFPAY ==
--- NOTE | 2022-08-01 | ECG_ITS ---
Test Reason : abd pain Blood Pressure : / mmHG Vent. Rate : 111 BPM Atrial Rate : 000 BPM P-R Int : 000 ms QRS Dur : 108 ms QT Int : 300 ms P-R-T Axes : 000 096 018 degrees QTc Int : 408 ms Atrial fibrillation with rapid ventricular response Incomplete right bundle branch block Right ventricular hypertrophy with repolarization abnormality Abnormal ECG When compared with ECG of 17-APR-2022 20:48, No significant changes seen Referred By: Sammi Serrato Electronically Signed By:ERIN GORDON
--- NOTE | ~2022-08-01 | XR_ITS ---
EXAMINATION: XR CHEST CLINICAL INFORMATION: Shortness COMPARISON: 05/25/2022 TECHNIQUE: Frontal view of the chest was obtained. FINDINGS: Heart size normal. No evidence of CHF. Underlying COPD not as well appreciated as on prior CT scan. Pulmonary nodules seen on prior CT scan not well appreciated on this exam. No consolidations or effusions are seen XR/XR chest 1V IMPRESSION: No acute intrathoracic disease.
--- NOTE | ~2022-08-01 | CT_ITS ---
EXAMINATION: CT ABDOMEN AND PELVIS WITHOUT CONTRAST CLINICAL INFORMATION: Left flank pain COMPARISON: CT chest dated 05/25/2022 and 02/23/2022 TECHNIQUE: Multidetector volumetric imaging was performed from the superior aspect of the liver through the pubic symphysis. Sagittal and coronal reformatted images were obtained on the technologist's workstation. This CT examination was performed using dose optimization techniques as appropriate, variously including the following: *Automated exposure control *Adjustment of mA and/or kV according to patient size (this includes techniques or standardized protocols for targeted exams where dose is matched to indication/reason for exam; i.e. extremities or head) *Use of iterative reconstruction technique DLP: 456 mGy-cm FINDINGS: IMAGE THORAX: Stable 7.1 mm mean diameter nodule in the left lower lobe. Emphysema. Mild bronchial thickening. Interstitial edema. Coronary calcifications. LIVER, GALLBLADDER, AND BILIARY TREE: The liver is normal in size, shape, and attenuation. No focal hepatic lesion or biliary ductal dilatation is present. The gallbladder is unremarkable with no evidence of radiopaque gallstones, gallbladder wall thickening, or obvious pericholecystic inflammatory changes. PANCREAS: Unremarkable. SPLEEN: Unremarkable. ADRENAL GLANDS: Unremarkable. KIDNEYS AND URETERS: There is a 5 x 3 mm calculus in the mid left ureter at the level of the L4-L5 disc space associated moderate upstream hydroureteronephrosis and prominent perinephric fat stranding, with fluid even extending into the left anterior pararenal space. Nonobstructive stone or cluster of tiny stones within a dependent calyx, lower pole left kidney. No additional urinary calculi. BLADDER: Unremarkable. GASTROINTESTINAL TRACT: Pancolonic diverticulosis, most concentrated within the sigmoid colon. No evidence of diverticulitis. Small sliding-type hiatal hernia. Stomach otherwise unremarkable. Normal small bowel. ABDOMINAL WALL: No significant hernia is appreciated. LYMPH NODES: Normal. VASCULAR: Aorta is atherosclerotic but normal caliber. PELVIC VISCERA: Marked prostatomegaly. OSSEOUS STRUCTURES: No acute or suspicious osseous abnormalities. Severe degenerative changes throughout the imaged spine. CT/CT abdomen pelvis wo IV con IMPRESSION: * There is a 5 x 3 mm calculus in the mid LEFT ureter associated with moderate upstream hydroureteronephrosis and prominent perinephric fat stranding. * Nonobstructive stone or cluster of tiny adjacent stones within a dependent calyx, lower pole left kidney. * Pancolonic diverticulosis without evidence of diverticulitis. * Marked prostatomegaly. * Emphysema and interstitial edema at the lung bases. * Stable 7.1 mm mean diameter nodule in the left lower lobe, unchanged since February 2022. According to the UPDATED 2017 Fleischner Society recommendations, the advised follow-up imaging for a single 6-8 mm solid nodule is: LOW RISK PATIENT: CT at 6-12 months, then consider CT at 18-24 months. HIGH RISK PATIENT: CT at 6-12 months, then at 18-24 months.
--- NOTE | ~2022-08-01 | FL_ITS ---
EXAMINATION: XR FLUOROSCOPY WITH IMAGES CLINICAL INFORMATION: Left ureteral stone. COMPARISON: Previous CT of the abdomen and pelvis July 2022. TECHNIQUE: Fluoroscopy Supervised By: Dr. North. Fluoroscopy Time: 11 seconds. Cumulative Dose: 3.4 mGy. DAP: Gy-cm2. Images: 2. FINDINGS: Initial image demonstrates a wire coiled in the left renal collecting system. Final image demonstrates the proximal end of an internal ureteral stent. FL/FL guidance in OR IMPRESSION: Fluoroscopy guidance for left retrograde exam.
[2022-08-01 14:05] VITALS: BP 191/121; PULSE 80; RESP 18; TEMP 36.7; O2SAT 99; BMI 21.1
--- NOTE | 2022-08-01 15:16 | ED_ITS ---
HPI - Abdominal Pain General Chief Complaint: Abdominal Pain Stated Complaint: L flank pain/Vomiting Time Seen by Provider: 08/01/22 15:10 Source: patient Mode of arrival: ambulatory Limitations: no limitations History of Present Illness HPI narrative: 77-year-old male with past medical history significant for HTN, AFib on Coumadin, hyperlipidemia, anxiety, depression presented today for severe left flank pain that started about an hour ago pain is localized to the left flank area described as severe 10/10 dull aching pain with no radiation of the pain, associated with nausea and vomiting. no fever, no chills, a normal bowel movement with no diarrhea, no dysuria, no hematuria was noticed by the patient. Never had that similar pain in the past. Accidental lung nodule was discovered on the CT PCP is working him up for metastatic disease patient just had a PET scan done today (official reading still pending). Related Data Home Medications Medication Instructions Recorded Confirmed atorvastatin 40 mg tablet 40 mg PO QPM 05/10/20 07/06/22 omeprazole 20 mg capsule,delayed 20 mg PO QAM 05/10/20 07/06/22 release cholecalciferol (vitamin D3) 25 25 mcg PO QAM 01/19/22 07/06/22 mcg (1,000 unit) tablet propranolol 60 mg capsule,24 60 mg PO DAILY 01/19/22 07/06/22 hr,extended release warfarin 2.5 mg tablet 2.5 mg PO DAILY 05/22/22 07/27/22 furosemide 20 mg tablet 20 mg PO DAILY 06/13/22 07/06/22 paroxetine HCl 30 mg tablet 30 mg PO DAILY 07/20/22 07/27/22 buspirone 10 mg tablet 5 mg PO DAILY 07/27/22 07/27/22 Allergies Allergy/AdvReac Type Severity Reaction Status Date / Time indomethacin [From INDOCIN] Allergy Intermediate RASH Verified 07/27/22 10:28 oxycodone [OXYCODONE] Allergy Intermediate VOMITING/RA Verified 07/27/22 10:28 SH Sulfa (Sulfonamide Allergy Intermediate BLISTERS, Verified 07/27/22 10:28 Antibiotics) sore on [SULFA (SULFONAMIDE the end of ANTIBIOTICS)] his penis acetaminophen [Percocet] AdvReac Unknown vomiting Verified 07/27/22 10:28 Review of Systems Review of Systems All other systems are reviewed and are negative Constitutional: Reports as per HPI and Reports no additional constitutional complaints Eyes: Reports as per HPI and Reports no additional eye complaints Reports system reviewed and no additional complaints, except as documented Cardiovascular: Reports as per HPI and Reports no additional cardiovascular complaints Respiratory: Reports as per HPI and Reports no additional respiratory complaints Gastrointestinal: Reports as per HPI and Reports no additional gastrointestinal complaints Genitourinary: Reports no additional female genitourinary complaints Musculoskeletal: Reports no additional musculoskeletal complaints Skin/Breast: Reports system reviewed and no additional complaints, except as docu Psychiatric: Reports no additional psychiatric complaints Endocrine: Reports no additional endocrine complaints Hematologic/Lymphatic: Reports no additional hematologic/lymphatic complaints Allergic/Immunologic: Reports no additional allergic/immunologic complaints Reports system reviewed and no additional complaints, except as documented and Reports Abnormal speech present [facility] Past Medical History Medical History A-fib Bilateral knee pain BPH w urinary obs/LUTS COVID-19 Osteoarthritis of left knee Recurrent UTI (urinary tract infection) Rotator cuff arthropathy of both shoulders Surgical History Status post right knee replacement Family History Family History Mother No problems noted. Father No problems noted. Social History Social History Household Members: Spouse Housing: House Do you presently have visiting nurse or other home services: No Patient Tobacco Use Status: Former Tobacco user Advance Directives: Yes Advance Directives on File: Yes Advance Directives Date on File: 02/28/22 service: No Current occupation: [employer] - right handed Current occupational exposures/hazards: No Physical Exam ED Vital Signs: Vital Signs - 24 hr 08/01/22 14:05 08/01/22 16:00 Temperature 98.0 F 97.6 F Pulse Rate 80 83 Respiratory Rate 18 16 Blood Pressure 191/121 H 177/107 H Pulse Oximetry 99 98 Oxygen Delivery Method Room Air Nasal Cannula Oxygen Flow Rate 3 BMI result Body Mass Index 21.1 Vital signs have been reviewed as appeared to be correct. Blood pressure elevated. Heart rate normal. Respiration rate normal. Temperature normal. Oxygen saturation normal. Appearance: Alert. Oriented X3. No acute distress. Head: Normal external exam. Normocephalic. Atraumatic. No Lloyd signs noted. No raccoon eyes noted Eyes: PERRLA. EOMI. Conjunctiva and sclera normal. Eyelids normal. ENT: TM's Normal. Pharynx normal. Uvula midline. Moist mucous membranes. No trismus noted. No drooling noted. No muffled voice noted. Neck: Normal inspection. Neck supple. FROM. No adenopathy. Thyroid Normal. No meningeal signs. No neck mass noted. CVS: Normal heart rate and rhythm. Heart sound normal. No murmurs noted. Pulses normal throughout. Respiratory: No respiratory distress. Painless inspiration. Breath sounds normal. No wheezes/rales/rhonchi noted. Chest nontender. No accessory muscle usage noted or decreased air movement noted. Abdomen: Soft and nontender. Bowel sounds normal in all 4 quadrants. No distention noted. No organomegaly noted. No visible injury noted. Back: Left CVA tenderness. Full range of motion noted. Skin: Skin warm and dry. Normal skin color. Normal skin turgor. No rashes/lesions/lacerations noted. Extremities: No lower extremity edema. Extremities exhibit normal range of motion. Extremities nontender. Neuro: Oriented X 3. Cranial nerve exam: II-XII are grossly intact No motor deficit. No sensory deficit. Reflexes normal. Course Course Course Narrative: A 77-year-old male came in after having a sudden onset of left flank pain, CT abdomen pelvis showed 5 x 3 cm stone and in a mid left ureter with hydronephrosis and hydroureter, pain is partially controlled with multiple doses of morphine and Toradol, patient also required doses of Zofran for his nausea and vomiting, the case was discussed with Dr. North who recommended to admit the patient to the medical service and she will consult. Continue with symptomatic treatment. Medical Decision Making Differential Diagnosis Differential Diagnoses: The differential diagnosis associated with the pr esentation includes (Renal colic, obstructive ureteric stone, AAA, perforated viscus.) Admission/Observation Consideration of admission/observation: Escalation of care including admission/observation considered Consult Healthcare Provider Management of the patient was discussed with: Hospitalist and Product Director (Mary Anne) Lab Data MDM Lab Attestation statement: I reviewed the patient's lab results. 08/01/22 15:36 02/21/23 15:36 Labs: Lab Results 08/01/22 08/01/22 Range/Units 15:36 15:36 WBC 9.7 (4.8-10.8) X10*3/uL RBC 4.66 (4.60-5.80) X10*6/uL Hgb 12.6 L (14.0-18.0) g/dl Hct 40.1 L (42.0-52.0) % MCV 86.1 (80.0-98.0) fL MCH 27.0 (27.0-33.0) pg MCHC 31.4 (31.0-36.0) g/dl RDW 13.2 (11.0-16.0) % Plt Count 362 D (160-400) X10*3/uL MPV 9.8 (9.4-12.4) fL Immature Gran % (Auto) 0.3 (0.0-0.4) % Neut % (Auto) 80.9 H (45-73) % Lymph % (Auto) 8.2 L (20-40) % [place] % (Auto) 5.1 (2-11) % Eos % (Auto) 4.9 H (0-4) % Baso % (Auto) 0.6 (0-2) % Lymph # (Auto) 0.8 L (1.2-4.9) X10*3/uL [place] # (Auto) 0.5 (0.1-1.2) X10*3/uL Eos # (Auto) 0.5 H (0.0-0.4) X10*3/uL Baso # (Auto) 0.1 (0.0-0.2) X10*3/uL Abs Immat Gran (auto) 0.03 (0.00-0.03) X10*3/uL Absolute Neuts (auto) 7.8 (2.0-8.3) x10*3/uL Absolute Nucleated RBC 0.000 (0.0-0.012) X10*3/uL Nucleated RBC % (auto) 0.0 (0.0-0.2) /100WBC Sodium 140 (135-145) mmol/L Potassium 5.2 H D (3.3-5.1) mmol/L Chloride 105 (96-108) mmol/L Carbon Dioxide 29 (22-29) mmol/L Anion Gap 11 L (12-20) BUN 17 H (9-16) mg/dL Creatinine 1.08 (0.5-1.4) mg/dL Estim Creat Clear Calc 60.6 Estimated GFR > 60 Random Glucose 119 H (60-115) mg/dL Calcium 9.8 (8.4-10.2) mg/dL Total Bilirubin 1.1 H (0.0-1.0) mg/dL Direct Bilirubin 0.3 (0.0-0.5) mg/dL AST 19 (5-37) U/L ALT 18 (0-40) U/L Alkaline Phosphatase 128 H (39-117) U/L Total Protein 6.9 (6.5-8.0) g/dL Albumin 4.0 (3.5-5.0) g/dL Lipase 26 (8-78) U/L Independent Interpretation I performed an independent interpretation of an: CT Scan (Abdomen and pelvis:* There is a 5 x 3 mm calculus in the mid LEFT ureter associated with moderate upstream hydroureteronephrosis and prominent perinephric fat stranding. * Nonobstructive stone or cluster of tiny adjacent stones within a dependent calyx, lower pole left kidney. * Pancolonic divert) Radiology Impression Discussion of test interpretation with radiology: I have reviewed the radiologist's reading. Medications Administered Discontinued Medications Generic Name Dose Route Start Last Admin Trade Name Freq PRN Reason Stop Dose Admin Sodium Chloride 1,000 mls @ 999 mls/hr 08/01/22 15:14 08/01/22 16:29 Ns IV 08/01/22 16:14 Infused .Q1H1M ONE Infusion Ketorolac Tromethamine 30 mg 08/01/22 17:38 08/01/22 17:48 Ketorolac Tromethamine 30 Mg/Ml Vial IVPUSH 08/01/22 17:39 30 mg ONCE ONE Administration Morphine Sulfate 4 mg 08/01/22 15:14 08/01/22 15:28 Morphine Sulfate 4 Mg/Ml Cartridge IVPUSH 08/01/22 15:15 4 mg ONCE ONE Administration Protocol Morphine Sulfate 2 mg 08/01/22 17:38 08/01/22 17:48 Morphine Sulfate 2 Mg/Ml Cartridge IVPUSH 08/01/22 17:39 2 mg ONCE ONE Administration Protocol Ondansetron HCl 4 mg 08/01/22 15:14 08/01/22 15:28 Ondansetron Hcl 4 Mg/2 Ml Vial IVPUSH 08/01/22 15:15 4 mg ONCE ONE Administration Ondansetron HCl 4 mg 08/01/22 17:38 08/01/22 17:49 Ondansetron Hcl 4 Mg/2 Ml Vial IVPUSH 08/01/22 17:39 4 mg ONCE ONE Administration Discharge Plan Discharge Clinical Impression: Renal colic, Ureter, calculus Patient Disposition: Home, Self-Care Prescriptions: No Action omeprazole 20 mg capsule,delayed release(DR/EC) 20 mg PO QAM Rx Instructions: TAKE 30 MINUTES BEFORE FIRST MEAL atorvastatin 40 mg tablet 40 mg PO QPM propranolol 60 mg capsule,extended release 24 hr 60 mg PO DAILY cholecalciferol (vitamin D3) 25 mcg (1,000 unit) tablet 25 mcg PO QAM buspirone 10 mg tablet 5 mg PO DAILY furosemide 20 mg tablet 20 mg PO DAILY paroxetine HCl 30 mg tablet 30 mg PO DAILY warfarin 2.5 mg tablet 2.5 mg PO DAILY Protocol: Dose Management Condition: Sunday (Week One) Dose/Route: 2.5 mg Instruction: 1 x 2.5 mg tablet Condition: Sunday Dose/Route: 2.5 mg Instruction: 1 x 2.5 mg tablet Condition: Sunday Dose/Route: 2.5 mg Instruction: 1 x 2.5 mg tablet Condition: Sunday Dose/Route: 2.5 mg Instruction: 1 x 2.5 mg tablet Condition: Dose/Route: 2.5 mg Instruction: 1 x 2.5 mg tablet Condition: Sunday Dose/Route: 2.5 mg Instruction: 1 x 2.5 mg tablet Condition: Sunday Dose/Route: 2.5 mg Instruction: 1 x 2.5 mg tablet Condition: Sunday (Week Two) Dose/Route: 2.5 mg Instruction: 1 x 2.5 mg tablet Condition: Sunday Dose/Route: 2.5 mg Instruction: 1 x 2.5 mg tablet Condition: Sunday Dose/Route: 2.5 mg Instruction: 1 x 2.5 mg tablet Condition: Sunday Dose/Route: 2.5 mg Instruction: 1 x 2.5 mg tablet Condition: Dose/Route: 2.5 mg Instruction: 1 x 2.5 mg tablet Condition: Sunday Dose/Route: 2.5 mg Instruction: 1 x 2.5 mg tablet Condition: Sunday Dose/Route: 2.5 mg Instruction: 1 x 2.5 mg tablet Protocol Text: Adjustment Start Date: 07/27/22 INR Value: 2.0 INR Date: 07/27/22 Recheck Date: 08/06/22 Additional Instructions: cont reg dosing no greens for 2 days, eat a red today call with any medication changes
[2022-08-01] MEDS: ondansetron HCL 4 MG/2 ML VIAL IVPUSH ×2 (15:28→17:49)
[2022-08-01] MEDS: Morphine Sulfate 4 MG/ML CARTRIDGE IVPUSH (15:28)
[2022-08-01] MEDS: 0.9 % Sodium Chloride 1,000 ML 999 ML IV (15:28)
[2022-08-01 15:52] LABS: MANUAL DIFF FLAG NO
[2022-08-01 15:57] LABS: Basophils Absolute Auto 0.1 X10*3/uL (0.0-0.2); Basophils Percent Auto 0.6 % (0-2); Eosinophils Absolute Auto 0.5 X10*3/uL (0.0-0.4); Eosinophils Percent Auto 4.9 % (0-4); Hematocrit 40.1 % (42.0-52.0); Hemoglobin 12.6 g/dl (14.0-18.0); Imm Gran Abs Auto 0.03 X10*3/uL (0.00-0.03); Imm Gran Pct Auto 0.3 % (0.0-0.4); Lymphocytes Absolute Auto 0.8 X10*3/uL (1.2-4.9); Lymphocytes Percent Auto 8.2 % (20-40); Mean Corpuscular HGB Conc 31.4 g/dl (31.0-36.0); Mean Corpuscular Volume 86.1 fL (80.0-98.0); Mean Platelet Volume 9.8 fL (9.4-12.4); Monocytes Absolute Auto 0.5 X10*3/uL (0.1-1.2); Monocytes Percent Auto 5.1 % (2-11); Neutrophils Absolute Auto 7.8 x10*3/uL (2.0-8.3); Neutrophils Percent Auto 80.9 % (45-73); Platelet Count 362 X10*3/uL (160-400); Red Blood Count 4.66 X10*6/uL (4.60-5.80); Red Cell Distribution Width 13.2 % (11.0-16.0); White Blood Count 9.7 X10*3/uL (4.8-10.8)
[2022-08-01 16:00] VITALS: BP 177/107; PULSE 83; RESP 16; TEMP 36.4; O2SAT 98
--- NOTE | 2022-08-01 16:00 | MHC.EDTECH ---
THIS PCT ASSUMED CARE OF PT AT 1500 ,1600 VITALS SIGN TAKEN ,STILL WAITING TO COLLECT URINE SAMPLE ,,PT WAS ASSISTED TO BE BOOSTED UP IN BED ,PILLOW AND WARM BLANKET GIVEN ,NELSON BARRY AWARE OF PT HIGH BP .
[2022-08-01 16:10] LABS: Alanine Aminotransferase 18 U/L (0-40); Alkaline Phosphatase 128 U/L (39-117); Anion Gap 11 (12-20); Aspartate Amino Transferase 19 U/L (5-37); Bilirubin Direct 0.3 mg/dL (0.0-0.5); Bilirubin Total 1.1 mg/dL (0.0-1.0); Blood Urea Nitrogen 17 mg/dL (9-16); Calcium 9.8 mg/dL (8.4-10.2); Carbon Dioxide 29 mmol/L (22-29); Chloride 105 mmol/L (96-108); Creatinine Clr Calc Pharmacy 60.6; Estimated Glomerular Filt Rate > 60; Glucose Random 119 mg/dL (60-115); Lipase 26 U/L (8-78); Potassium 5.2 mmol/L (3.3-5.1); Sodium 140 mmol/L (135-145); Total Protein 6.9 g/dL (6.5-8.0)
[2022-08-01] MEDS: Ketorolac Tromethamine 30 MG/ML VIAL IVPUSH (17:48)
[2022-08-01] MEDS: Morphine Sulfate 2 MG/ML CARTRIDGE IVPUSH (17:48)
[2022-08-01 18:00] VITALS: BP 131/73; PULSE 108; RESP 16; TEMP 37; O2SAT 96
--- NOTE | 2022-08-01 18:00 | MHC.EDTECH ---
1800 rounding done ,vitals sign taken ,pt neice at bedside ,pt said he was cold warm blanket given .
--- NOTE | 2022-08-01 20:28 | PC.NURSE ---
preliminary med rec completed.
[2022-08-01] MEDS: Metoprolol Tartrate 5 MG/5 ML VIAL IVPUSH (20:31)
--- NOTE | 2022-08-01 20:32 | PM.IMHP ---
History of Present Illness Date of Service: 08/01/22 Attending physician on admission: Stephon Espino Chief Complaint: left flank pain 77-year-old male with history of paroxysmal atrial fibrillation anticoagulated with Coumadin, BPH with LUTS, osteoarthritis, hypertension, GERD, history nephrolithiasis, and depression presented to the ED for evaluation of severe left flank pain that started earlier today. The patient has a suspicious left-sided pulmonary nodule and presented for PET scan earlier today. Shortly after the scan, patient developed 10/10 left flank pain with associated nausea and vomiting. On arrival, patient initially hypertensive with blood pressure 177/107 131/73 without intervention. Develops tachycardia at 108 and on my exam up to 129 with atrial fibrillation rhythm noted on rn urgent care. There is no leukocytosis. Creatinine 1.08, baseline 0.79. Sodium 140, potassium 5.2, chloride 105, CO2 29. UA showing 2+ leukocytes, positive nitrites, 3+ blood, 1+ protein, positive urinary sediment, 4+ bacteria. Patient denies any urinary symptoms including dysuria, hematuria, increased urinary frequency, decreased urinary output, fevers, chills. CT abdomen/pelvis showing obstructing 5 x 3 mm calculus in the mid left ureter associated with moderate hydroureteronephrosis and prominent perinephric fat stranding. Additional nonobstructing stone seen in the lower pole of the left kidney. There is also marked prostatomegaly and emphysema and interstitial edema at the lung bases. In the ED, patient treated with ketorolac and IV morphine along with 1 L NS and ondansetron. Case discussed with Dr. Cesia underwood Neurology who will follow patient with probable OR tomorrow afternoon. Review of Systems Review of Systems: Yes all other systems are reviewed and are negative [facility] Medical History (Updated 08/01/22 @ 22:10 by LOVE Chow) A-fib Bilateral knee pain BPH w urinary obs/LUTS COVID-19 Current use of anticoagulant therapy Lung nodule Osteoarthritis of left knee Recurrent UTI (urinary tract infection) Rotator cuff arthropathy of both shoulders Family History Mother No problems noted. Father No problems noted. Surgical History Status post right knee replacement Social History Household Members: Spouse Housing: House Do you presently have visiting nurse or other home services: No Patient Tobacco Use Status: Former Tobacco user Smoked in Last 30 Days: No Use of substances other than those prescribed or required for medical reasons: No Advance Directives: Yes Advance Directives on File: Yes Advance Directives Date on File: 02/28/22 service: No Current occupation: [employer] - right handed Current occupational exposures/hazards: No Meds Allergies Allergy/AdvReac Type Severity Reaction Status Date / Time indomethacin [From INDOCIN] Allergy Intermediate RASH Verified 07/27/22 10:28 oxycodone [OXYCODONE] Allergy Intermediate VOMITING/RA Verified 07/27/22 10:28 SH Sulfa (Sulfonamide Allergy Intermediate BLISTERS, Verified 07/27/22 10:28 Antibiotics) sore on [SULFA (SULFONAMIDE the end of ANTIBIOTICS)] his penis acetaminophen [Percocet] AdvReac Unknown vomiting Verified 07/27/22 10:28 Home Medications Medication Instructions Recorded Confirmed Last Taken Type atorvastatin 40 mg tablet 1 tab PO DAILY 08/01/22 08/01/22 Unknown History lorazepam 0.5 mg tablet 1 tab PO BID PRN Anxiety 08/01/22 08/01/22 Unknown History omeprazole 20 mg capsule,delayed 1 cap PO DAILY 08/01/22 08/01/22 Unknown History release paroxetine HCl 30 mg tablet 1 tab PO DAILY 08/01/22 08/01/22 Unknown History propranolol 60 mg capsule,24 1 cap PO DAILY 08/01/22 08/01/22 Unknown History hr,extended release warfarin 2.5 mg tablet 1 tab PO DAILY 08/01/22 08/01/22 Unknown History Physical Exam Vital Signs and Narrative: Vital Signs: Last Vital Signs Temp 98.6 F 08/01/22 18:00 Pulse 108 H 08/01/22 18:00 Resp 16 08/01/22 18:00 BP 131/73 08/01/22 18:00 Pulse Ox 96 08/01/22 18:00 O2 Del Method 08/01/22 18:00 O2 Flow Rate 2 08/01/22 18:00 BMI result Body Mass Index 21.1 Constitutional - Awake and Alert, No apparent distress Eyes - PERRLA, EOMI Cardiovascular - S1S2, RRR, No edema Respiratory - Normal lung expansion, Normal respiratory effort, No respiratory distress, CTA bilaterally Gastrointestinal - NT / ND; +BS; No rebound or guarding - No CVA tenderness Extremities - no calf tenderness bilaterally, no swelling Skin - Warm/Dry Neurological - Alert & oriented x3, 5/5 strength BUE and BLE Psychological - Appropriate affect Results Labs 08/01/22 15:36 08/01/22 15:36 Labs: Laboratory Results - last 24 hr 08/01/22 08/01/22 15:36 15:36 MCV 86.1 MCH 27.0 MCHC 31.4 RDW 13.2 Plt Count 362 D MPV 9.8 Immature Gran % (Auto) 0.3 Neut % (Auto) 80.9 H Lymph % (Auto) 8.2 L [place] % (Auto) 5.1 Eos % (Auto) 4.9 H Baso % (Auto) 0.6 Lymph # (Auto) 0.8 L [place] # (Auto) 0.5 Eos # (Auto) 0.5 H Baso # (Auto) 0.1 Abs Immat Gran (auto) 0.03 Absolute Neuts (auto) 7.8 Absolute Nucleated RBC 0.000 Nucleated RBC % (auto) 0.0 Anion Gap 11 L Estim Creat Clear Calc 60.6 Estimated GFR > 60 Random Glucose 119 H Calcium 9.8 Total Bilirubin 1.1 H Direct Bilirubin 0.3 AST 19 ALT 18 Alkaline Phosphatase 128 H Total Protein 6.9 Albumin 4.0 Lipase 26 Imaging Radiologist's Impressions: Impressions Abdomen/Pelvis CT 08/01/22 15:40 IMPRESSION: * There is a 5 x 3 mm calculus in the mid LEFT ureter associated with moderate upstream hydroureteronephrosis and prominent perinephric fat stranding. * Nonobstructive stone or cluster of tiny adjacent stones within a dependent calyx, lower pole left kidney. * Pancolonic diverticulosis without evidence of diverticulitis. * Marked prostatomegaly. * Emphysema and interstitial edema at the lung bases. * Stable 7.1 mm mean diameter nodule in the left lower lobe, unchanged since February 2022. According to the UPDATED 2017 Fleischner Society recommendations, the advised follow-up imaging for a single 6-8 mm solid nodule is: LOW RISK PATIENT: CT at 6-12 months, then consider CT at 18-24 months. HIGH RISK PATIENT: CT at 6-12 months, then at 18-24 months. Assessment and Plan (1) UTI (urinary tract infection): Status: Acute (2) Obstructive uropathy: Status: Acute (3) Atrial fibrillation with RVR: Status: Acute Plan 77-year-old male with history of paroxysmal atrial fibrillation anticoagulated with Coumadin, BPH with LUTS, osteoarthritis, hypertension, GERD, history nephrolithiasis, and depression admitted for management of obstructive uropathy with TIMOTHY. # obstructive uropathy -CT abdomen/pelvis showing obstructing 5 mm stone in the left ureter with moderate hydroureteronephrosis -appreciate urology input. Case discussed with Dr. Callaway who will likely take patient to the OR around 16:00 tomorrow. Keep NPO after midnight. Hold Coumadin. INR 2.0 ED -continue IVF # acute kidney injury-secondary to obstructive uropathy -creatinine 1.08, baseline 0.79 -continue IVF -monitor BMP # acute UTI -CT abdomen/pelvis with left-sided perinephric stranding -UA with 2+ leuks, positive nitrites, 3+ blood, 1+ protein, urinary sediment, 4+ bacteria -initiate 1 g IV ceftriaxone daily x5 days (initiated 08/01) -Follow UC and BC # paroxysmal atrial fibrillation with RVR -EKG showing AFib with RVR, rate 111 -on exam, heart rate elevated to 129. Given 5 mg Lopressor push, maintaining HR 99-110 -continue 60 mg propranolol daily -last echo 0 03/02 showing normal LV systolic function with EF 60-65%, severely dilated left atrium and mild mitral regurgitation -BNP and troponin pending -hold Coumadin for OR tomorrow. Resume Coumadin postoperatively -follow INR -appreciate cardiology input # depression -continue paroxetine # GERD -continue PPI DVT prophylaxis- SCPs for now, resume Coumadin postoperatively Full code Patient requires inpatient stay of at least 2 midnights for management obstructive uropathy requiring surgical intervention as well as atrial fibrillation with RVR requiring close monitoring on telemetry as well as expert consultation Time Spent With Patient Time: Total time managing care of this patient today ____ minutes. Quality Stroke Does the patient have a stroke diagnosis?: No VTE Prior VTE?: No VTE Risk Level:: Medical - moderate - high VTE Device Contraindication: N/A - Device Ordered VTE Drug Contraindication: Treatment Not Indicated
--- NOTE | 2022-08-01 20:43 | PC.NURSE ---
This nurse assume care at 19:00 Pt's BP is stable, a-fib on the monitor with HR of 150, this nurse administered beta ashley as order by the MAR. Pt 's lung sound on his right upper lobe fine crackles and left lower lobe. Pt's HR increases with movement, this nurse provide urinal . No edema, C on 4L 96%. will continue to monitor.
[2022-08-01 21:15] LABS: Appearance Urine Cloudy; Color Urine Yellow; Glucose Urine UA Negative (Negative); Leukocyte Esterase Urine Moderate (2+) (Negative); Nitrite Urine Positive (Negative); PH 5.5 (5.0-9.0); Specific Gravity - Urine 1.015 (1.005-1.025); UMIC TRIGGER UACC YES; Urine Blood Large (3+) (Negative); Urine Ketones Trace mg/dL (Negative); Urine Protein 30 (1+) mg/dL (Neg-Trace)
[2022-08-01 21:21] LABS: Bacteria Urine 4+ (None Seen); Hyaline Casts Urine 0-2 /LPF (0-2); RBC Urine >20 /HPF (0-2); Squamous Epithelial Cell Urine 0-2 /HPF (0-2); UACC Culture Trigger YES; WBC Urine >50 /HPF (0-5)
[2022-08-01 21:25] VITALS: BP 94/50; PULSE 100; RESP 20; TEMP 37.6; O2SAT 96
[2022-08-01] MEDS: 0.9 % Sodium Chloride 1,000 ML 100 ML IVCONT (21:35)
--- NOTE | 2022-08-01 22:00 | MHC.EDTECH ---
0200 rounding done ,pt sleeping .
[2022-08-01] MEDS: cefTRIAXone sodium 1 GM in 0.9 % Sodium Chloride 50 ML IV (22:57)
--- NOTE | 2022-08-01 22:57 | PC.NURSE ---
Pt urine was collected, pt had faul smell, ernesto appearance and pt denies any symptoms. PT abx is running as order.
[2022-08-01 23:12] LABS: B Type Natriuretic Peptide 872 pg/mL (<100)
[2022-08-01 23:25] VITALS: BP 90/53; PULSE 108; RESP 24; TEMP 37.2; O2SAT 95
[2022-08-01 23:29] VITALS: BP 95/56; PULSE 101
[2022-08-01 23:33] LABS: Troponin-I High Sensitivity 566.1 ng/L (<3.5-35.0)
--- NOTE | 2022-08-01 23:33 | PC.NURSE ---
critical lab of trop of [phone] NELSON Gallo. Dr Espino,
[2022-08-01 23:38] LABS: COVID-19 Test Negative (Negative); IDNOW Serial# 16C4AD1C
--- NOTE | 2022-08-01 23:49 | P.CONCC_ITS ---
History of Present Illness Data of Consult Service Date: 08/01/22 Requesting physician: Perry Arreaga Primary Care Provider: Chris Walker MD HPI Reason for consult: Hypotension The patient is a 77-year-old male with history of paroxysmal atrial fibrillation anticoagulated with Coumadin, BPH with LUTS, osteoarthritis, hypertension, GERD, history nephrolithiasis, and depression who presented to the Emergency department for evaluation of severe left flank pain that started earlier today. Patient reported 10/10 left flank pain with associated nausea and vomiting. CT abdomen/pelvis showing obstructing 5 x 3 mm calculus in the mid left ureter associated with moderate hydroureteronephrosis and prominent perinephric fat stranding.? Additional nonobstructing stone seen in the lower pole of the left kidney.? Patient admitted to hospital medicine? for obstructive uropathy? with plan on going to OR tomorrow with Dr Callaway.? ?Initially patient blood pressure? ranging? of systolic of 160s,? developed AFib RVR? that resolved after administration of 5 lopressor.? Later patient blood pressures dropped to systolic of 90s. No fever, chills.? ?Patient will be transferred to ICU for management of? possible urosepsis Review of Systems Review of Systems: as per HPI Yes all other systems are reviewed and are negative PMFSH Past Medical History Medical History (Updated 08/02/22 @ 00:32 by Gómez Montes De Oca NP) A-fib Bilateral knee pain BPH w urinary obs/LUTS COVID-19 Current use of anticoagulant therapy Lung nodule Osteoarthritis of left knee Recurrent UTI (urinary tract infection) Rotator cuff arthropathy of both shoulders Family History Family History Mother No problems noted. Father No problems noted. Surgical History Surgical History Status post right knee replacement Social History Social History Household Members: Spouse Housing: House Do you presently have visiting nurse or other home services: No Patient Tobacco Use Status: Former Tobacco user Smoked in Last 30 Days: No Use of substances other than those prescribed or required for medical reasons: No Advance Directives: Yes Advance Directives on File: Yes Advance Directives Date on File: 02/28/22 service: No Current occupation: [employer] - right handed Current occupational exposures/hazards: No Meds Allergies Allergy/AdvReac Type Severity Reaction Status Date / Time indomethacin [From INDOCIN] Allergy Intermediate RASH Verified 07/27/22 10:28 oxycodone [OXYCODONE] Allergy Intermediate VOMITING/RA Verified 07/27/22 10:28 SH Sulfa (Sulfonamide Allergy Intermediate BLISTERS, Verified 07/27/22 10:28 Antibiotics) sore on [SULFA (SULFONAMIDE the end of ANTIBIOTICS)] his penis acetaminophen [Percocet] AdvReac Unknown vomiting Verified 07/27/22 10:28 Active Medications: Current Medications Atorvastatin Calcium (Atorvastatin Calcium 40 Mg Tablet) 40 mg PO DAILY [facility] Docusate Sodium (Docusate Sodium 100 Mg Capsule) 100 mg PO DAILY PRN PRN Reason: Constipation Sodium Chloride (Ns) 1,000 mls @ 100 mls/hr IVCONT .Q10H [facility] Last Admin: 08/01/22 21:35 Dose: 100 mls/hr Ceftriaxone Sodium 1 gm/ (Sodium Chloride) 50 mls @ 100 mls/hr IV Q24H [facility] Last Infusion: 08/01/22 23:45 Dose: Infused Ketorolac Tromethamine (Ketorolac Tromethamine 30 Mg/Ml Vial) 30 mg IVPUSH Q6H PRN PRN Reason: Pain, Moderate (Pain Scale 4-6 Stop: 08/06/22 20:28 Lorazepam (Lorazepam 0.5 Mg Tablet) 0.5 mg PO BID PRN PRN Reason: Anxiety Morphine Sulfate (Morphine Sulfate 4 Mg/Ml Cartridge) 4 mg IVPUSH Q4H PRN; Protocol PRN Reason: Pain, Severe (Pain Scale 7-10) Omeprazole (Omeprazole 20 Mg Capsule.Dr) 20 mg PO DAILY@0630 [facility] Ondansetron HCl (Ondansetron Hcl 4 Mg/2 Ml Vial) 4 mg IVPUSH Q8H PRN PRN Reason: Nausea and Vomiting Paroxetine HCl (Paroxetine Hcl 30 Mg Tablet) 30 mg PO DAILY [facility] Propranolol HCl (Propranolol Hcl La 60 Mg Cap.Sa.24h) 60 mg PO DAILY [facility]; Protocol Sodium Chloride (0.9 % Sodium Chloride Flush 3 Ml Syringe) 3 ml IVFLUSH QSHIFT [facility] Home Medications Medication Instructions Recorded Confirmed Last Taken Type atorvastatin 40 mg tablet 1 tab PO DAILY 08/01/22 08/01/22 Unknown History lorazepam 0.5 mg tablet 1 tab PO BID PRN Anxiety 08/01/22 08/01/22 Unknown History omeprazole 20 mg capsule,delayed 1 cap PO DAILY 08/01/22 08/01/22 Unknown History release paroxetine HCl 30 mg tablet 1 tab PO DAILY 08/01/22 08/01/22 Unknown History propranolol 60 mg capsule,24 1 cap PO DAILY 08/01/22 08/01/22 Unknown History hr,extended release warfarin 2.5 mg tablet 1 tab PO DAILY 08/01/22 08/01/22 Unknown History Physical Exam Vital Signs: Vital Signs: Last Vital Signs Temp 98.9 F 08/01/22 23:25 Pulse 101 H 08/01/22 23:29 Resp 24 H 08/01/22 23:25 BP 95/56 L 08/01/22 23:29 Pulse Ox 95 08/01/22 23:25 O2 Del Method 08/01/22 23:25 O2 Flow Rate 2 08/01/22 23:25 BMI result Body Mass Index 21.1 ?General:? Alert oriented x3 no acute distress.? Speaking full sentences. Following all commands. ?HEENT:? Head is normocephalic, atraumatic, pupils equal round reactive to light accommodation bilaterally.? Extraocular movements appear intact.? Buccal mucosa is dry, Neck is supple without lymphadenopathy. ?Cardiac:?Afib rate control to low 100s.. Clear S1-S2, no murmurs rubs or gallops. ?Pulmonary:? Clear to auscultation, no wheezes, rales or rhonchi. ?Abdomen:? ?Abdomen soft, diffuse tenderness throughout abdomen non-distended. Normal bowel sounds. No pulsatile mass. ?Musculoskeletal:? Moving all 4 extremities upon request a major joints, there is no crepitus or tenderness.? The strength is 5/5 bilaterally and throughout all 4 extremities.? Gait not assessed at this point. ?Neurologic:? No focal deficits noted.Motor strength as above.?? ?Skin:? Intact, no lesions, edema, erythema, clubbing or cyanosis.? No ulcers. Vascular:? 2+ pulses upper and lower extremities distally.? Results Labs 08/01/22 15:36 08/01/22 15:36 Labs: Short CBC 08/01/22 Range/Units 15:36 WBC 9.7 (4.8-10.8) X10*3/uL Hgb 12.6 L (14.0-18.0) g/dl Hct 40.1 L (42.0-52.0) % Plt Count 362 D (160-400) X10*3/uL BMP 08/01/22 15:36 Sodium 140 Potassium 5.2 H D Chloride 105 Carbon Dioxide 29 BUN 17 H Creatinine 1.08 Calcium 9.8 Liver Function 08/01/22 Range/Units 15:36 Total Bilirubin 1.1 H (0.0-1.0) mg/dL Direct Bilirubin 0.3 (0.0-0.5) mg/dL AST 19 (5-37) U/L ALT 18 (0-40) U/L Alkaline Phosphatase 128 H (39-117) U/L Albumin 4.0 (3.5-5.0) g/dL Urine 08/01/22 Range/Units 21:01 Urine Color Yellow Urine Appearance Cloudy Urine pH 5.5 (5.0-9.0) Ur Specific [place] 1.015 (1.005-1.025) Urine Protein 30 (1+) H (Neg-Trace) mg/dL Urine Glucose (UA) Negative (Negative) mg/dL Assessment and Plan (1) Sepsis: Status: Acute (2) Obstructive uropathy: Status: Acute (3) Atrial fibrillation with RVR: Status: Acute (4) TIMOTHY (acute kidney injury): Status: Acute (5) UTI (urinary tract infection): Status: Acute Plan ?Plan: Neuro:? ?No acute issues Cardiac:?? Sepsis- patient is not in severe septic shock, lactic only 1.4. Sepsis likely from obstructive nephrolithiasis.? Will broaden antibiotic coverage with meropenem.? ? Hypotension-? patient MAP > 65. Will cont to monitor closely for possible pressor requirments? AFIB RVR- resolved after 5 lopressor. Holding coumadin for procedure tomorrow? Pulmonary: ?No acute issues Renal:? ?Nephrolithiasis with? obstruction and hydronephrosis-? patient has a history of kidney stones,? today CT of the abdomen showed obstructing 5 x 3 mm calculus in the mid left ureter associated with moderate hydroureteronephrosis and prominent perinephric fat stranding. .? Urology, Dr Callaway,? consulted by hospital medicine, will plan to take patient to OR early in the am.? ?? TIMOTHY-? nonoliguric.? likely post renal due to? obstruction.? Continue to check renal induces and urine output Endo:?? ?No acute issues GI:?? ?No acute issues ID: Sepsis- see cardiac plan? Heme/Onc:?? ?No acute issues Psych:? No acute issues. Miscellaneous:? No acute issues. Prophylaxis: ?DVT:? Compression therapy, Coumadin on hold for procedure tomorrow? ? CODE: ? Full code? Critical care time: X 60 minutes of critical care time? Time Spent With Patient Time: Total time managing care of this patient today ____ minutes. Critical Care Time Critical Care Time (minutes): 60
[2022-08-02] VITALS (22 sets, daily range): BP systolic 87–114; BP diastolic 48–66; PULSE 70–111; RESP 16–25; TEMP 36.7–37.6; O2SAT 93–98; BMI 21.3
[2022-08-02 00:04] LABS: Lactic Acid 1.4 mmol/L (0.5-2.0)
--- NOTE | 2022-08-02 00:05 | ECG_ITS ---
Test Reason : ELEVATED TROP Blood Pressure : / mmHG Vent. Rate : 096 BPM Atrial Rate : 000 BPM P-R Int : 000 ms QRS Dur : 108 ms QT Int : 318 ms P-R-T Axes : 000 100 018 degrees QTc Int : 401 ms Atrial fibrillation Incomplete right bundle branch block Right ventricular hypertrophy with repolarization abnormality Abnormal ECG When compared to the previous EKG of same day, no significant changes Referred By: Gómez Montes De Oca Electronically Signed By:ERIN GORDON
--- NOTE | 2022-08-02 00:06 | PC.NURSE ---
Pt has been inserted a new IV on his left forearm due to pt is being transferred to ICU, ICU [facility] SPECIALIST was at bedside. Labs has been drawn. IVF are still running.
[2022-08-02 00:33] LABS: MANUAL DIFF FLAG NO
[2022-08-02 00:34] LABS: Basophils Percent Auto 0.1 % (0-2); Hematocrit 33.9 % (42.0-52.0); Hemoglobin 10.7 g/dl (14.0-18.0); Imm Gran Abs Auto 0.11 X10*3/uL (0.00-0.03); Imm Gran Pct Auto 0.8 % (0.0-0.4); Lymphocytes Absolute Auto 0.3 X10*3/uL (1.2-4.9); Lymphocytes Percent Auto 1.8 % (20-40); Mean Corpuscular HGB Conc 31.6 g/dl (31.0-36.0); Mean Corpuscular Volume 85.6 fL (80.0-98.0); Monocytes Absolute Auto 1.2 X10*3/uL (0.1-1.2); Monocytes Percent Auto 8.5 % (2-11); Neutrophils Absolute Auto 12.6 x10*3/uL (2.0-8.3); Neutrophils Percent Auto 88.8 % (45-73); Platelet Count 230 X10*3/uL (160-400); Red Blood Count 3.96 X10*6/uL (4.60-5.80); Red Cell Distribution Width 13.3 % (11.0-16.0); White Blood Count 14.1 X10*3/uL (4.8-10.8)
--- NOTE | 2022-08-02 00:36 | PC.NURSE ---
this nurse has given report to Preethi STITCHING DEPARTMENT SUPERVISOR.
[2022-08-02 00:49] LABS: Anion Gap 15 (12-20); Blood Urea Nitrogen 22 mg/dL (9-16); Calcium 8.6 mg/dL (8.4-10.2); Carbon Dioxide 21 mmol/L (22-29); Chloride 108 mmol/L (96-108); Creatinine Clr Calc Pharmacy 59.5; Estimated Glomerular Filt Rate > 60; Glucose Random 84 mg/dL (60-115); Potassium 4.5 mmol/L (3.3-5.1); Sodium 139 mmol/L (135-145)
[2022-08-02 04:17] LABS: MANUAL DIFF FLAG NO
[2022-08-02 04:18] LABS: Basophils Percent Auto 0.2 % (0-2); Hematocrit 32.3 % (42.0-52.0); Hemoglobin 10.3 g/dl (14.0-18.0); Imm Gran Abs Auto 0.09 X10*3/uL (0.00-0.03); Imm Gran Pct Auto 0.5 % (0.0-0.4); Lymphocytes Absolute Auto 0.4 X10*3/uL (1.2-4.9); Lymphocytes Percent Auto 2.3 % (20-40); Mean Corpuscular HGB Conc 31.9 g/dl (31.0-36.0); Mean Corpuscular Hemoglobin 27.2 pg (27.0-33.0); Mean Corpuscular Volume 85.2 fL (80.0-98.0); Mean Platelet Volume 9.6 fL (9.4-12.4); Monocytes Absolute Auto 1.4 X10*3/uL (0.1-1.2); Monocytes Percent Auto 8.3 % (2-11); Neutrophils Absolute Auto 14.7 x10*3/uL (2.0-8.3); Neutrophils Percent Auto 88.7 % (45-73); Platelet Count 202 X10*3/uL (160-400); Red Blood Count 3.79 X10*6/uL (4.60-5.80); Red Cell Distribution Width 13.4 % (11.0-16.0); White Blood Count 16.6 X10*3/uL (4.8-10.8)
[2022-08-02 04:20] LABS: Venous Blood Gas Refer to POC result
[2022-08-02 04:21] LABS: VBG Base Excess -3.1 mmol/L; VBG HCO3 20 mmol/L (22-26); VBG pCO2 30 mmHg; VBG pH 7.42 (7.32-7.43); VBG pO2 98 mmHg
[2022-08-02 04:26] LABS: INTERNATIONAL NORM RATIO 1.5 (0.9-1.1); Prothrombin Time 17.1 SEC (10.0-13.1)
[2022-08-02] MEDS: Phenylephrine HCL 20 MG in 0.9 % Sodium Chloride 250 ML 27.43 MG IVCONT (04:28)
[2022-08-02 04:33] LABS: Anion Gap 15 (12-20); Blood Urea Nitrogen 24 mg/dL (9-16); Calcium 8.4 mg/dL (8.4-10.2); Carbon Dioxide 21 mmol/L (22-29); Chloride 110 mmol/L (96-108); Creatinine Clr Calc Pharmacy 58.4; Estimated Glomerular Filt Rate > 60; Glucose Random 92 mg/dL (60-115); Magnesium 1.9 mg/dL (1.6-2.6); Phosphorus 4.9 mg/dL (2.7-4.5); Potassium 4.8 mmol/L (3.3-5.1); Sodium 141 mmol/L (135-145)
[2022-08-02 04:44] LABS: Troponin-I High Sensitivity 516.1 ng/L (<3.5-35.0)
--- NOTE | 2022-08-02 05:46 | PM.UROCN ---
History of Present Illness Consult details Consult date: 08/02/22 Narrative: 77-year-old male with history of paroxysmal atrial fibrillation anticoagulated with Coumadin, BPH with LUTS, osteoarthritis, hypertension, GERD, history nephrolithiasis, and depression presented to the ED for evaluation of severe left flank pain, 10/10 left flank pain with associated nausea and vomiting. The patient has a suspicious left-sided pulmonary nodule and presented for PET scan earlier today.? ? On arrival, patient initially hypertensive with blood pressure 177/107 131/73 without intervention.? 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 There is no leukocytosis.? Creatinine 1.08, baseline 0.79.? UA showing 2+ leukocytes, positive nitrites, 3+ blood, 1+ protein, positive urinary sediment, 4+ bacteria.? Patient denies fevers, chills.? CT abdomen/pelvis showing obstructing 5 x 3 mm calculus in the mid left ureter associated with moderate hydroureteronephrosis and prominent perinephric fat stranding.? Additional nonobstructing stone seen in the lower pole of the left kidney.??The patient was transferred to the ICU overnight due to septic picture. Plan cyst left ureteral stent, urgent. Review of Systems Review of Systems: 10 point ROS negative other than stated in HPI PMFSH Past Medical History Medical History A-fib Bilateral knee pain BPH w urinary obs/LUTS COVID-19 Current use of anticoagulant therapy Lung nodule Osteoarthritis of left knee Recurrent UTI (urinary tract infection) Rotator cuff arthropathy of both shoulders Family History Family History Mother No problems noted. Father No problems noted. Surgical History Surgical History Status post right knee replacement Social History Social History Household Members: None Housing: House Do you presently have visiting nurse or other home services: No Patient Tobacco Use Status: Former Tobacco user Advance Directives Date on File: 02/28/22 service: No Current occupation: [employer] - right handed Current occupational exposures/hazards: No Meds Allergies Allergy/AdvReac Type Severity Reaction Status Date / Time indomethacin [From INDOCIN] Allergy Intermediate RASH Verified 07/27/22 10:28 oxycodone [OXYCODONE] Allergy Intermediate VOMITING/RA Verified 07/27/22 10:28 SH Sulfa (Sulfonamide Allergy Intermediate BLISTERS, Verified 07/27/22 10:28 Antibiotics) sore on [SULFA (SULFONAMIDE the end of ANTIBIOTICS)] his penis acetaminophen [Percocet] AdvReac Unknown vomiting Verified 07/27/22 10:28 Active Medications: Current Medications Atorvastatin Calcium (Atorvastatin Calcium 40 Mg Tablet) 40 mg PO DAILY [facility] Docusate Sodium (Docusate Sodium 100 Mg Capsule) 100 mg PO DAILY PRN PRN Reason: Constipation Sodium Chloride (Ns) 1,000 mls @ 100 mls/hr IVCONT .Q10H [facility] Last Admin: 08/01/22 21:35 Dose: 100 mls/hr Ceftriaxone Sodium 1 gm/ (Sodium Chloride) 50 mls @ 100 mls/hr IV Q24H [facility] Last Infusion: 08/01/22 23:45 Dose: Infused Phenylephrine HCl 20 mg/ (Sodium Chloride) 252 mls @ 0 mls/hr IVCONT .Q0M [facility]; Protocol Last Admin: 08/02/22 04:28 Dose: 0.5 mcg/kg/min, 27.43 mls/hr Ketorolac Tromethamine (Ketorolac Tromethamine 30 Mg/Ml Vial) 30 mg IVPUSH Q6H PRN PRN Reason: Pain, Moderate (Pain Scale 4-6 Stop: 08/06/22 20:28 Lorazepam (Lorazepam 0.5 Mg Tablet) 0.5 mg PO BID PRN PRN Reason: Anxiety Morphine Sulfate (Morphine Sulfate 4 Mg/Ml Cartridge) 4 mg IVPUSH Q4H PRN; Protocol PRN Reason: Pain, Severe (Pain Scale 7-10) Omeprazole (Omeprazole 20 Mg Capsule.Dr) 20 mg PO DAILY@0630 [facility] Last Admin: 08/02/22 05:42 Dose: Not Given Ondansetron HCl (Ondansetron Hcl 4 Mg/2 Ml Vial) 4 mg IVPUSH Q8H PRN PRN Reason: Nausea and Vomiting Paroxetine HCl (Paroxetine Hcl 30 Mg Tablet) 30 mg PO DAILY [facility] Propranolol HCl (Propranolol Hcl La 60 Mg Cap.Sa.24h) 60 mg PO DAILY [facility]; Protocol Sodium Chloride (0.9 % Sodium Chloride Flush 3 Ml Syringe) 3 ml IVFLUSH QSHIFT [facility] Last Admin: 08/02/22 00:08 Dose: Not Given Home Medications Medication Instructions Recorded Confirmed Last Taken Type atorvastatin 40 mg tablet 1 tab PO DAILY 08/01/22 08/01/22 Unknown History lorazepam 0.5 mg tablet 1 tab PO BID PRN Anxiety 08/01/22 08/01/22 Unknown History omeprazole 20 mg capsule,delayed 1 cap PO DAILY 08/01/22 08/01/22 Unknown History release paroxetine HCl 30 mg tablet 1 tab PO DAILY 08/01/22 08/01/22 Unknown History propranolol 60 mg capsule,24 1 cap PO DAILY 08/01/22 08/01/22 Unknown History hr,extended release warfarin 2.5 mg tablet 1 tab PO DAILY 08/01/22 08/01/22 Unknown History Physical Exam Vital Signs: Vital Signs: Last Vital Signs Temp 98.7 F 08/02/22 03:00 Pulse 84 08/02/22 05:00 Resp 22 H 08/02/22 05:00 BP 114/66 08/02/22 05:00 Pulse Ox 97 08/02/22 05:00 O2 Del Method 08/02/22 05:00 O2 Flow Rate 2 08/02/22 05:00 BMI result Body Mass Index 21.1 Const: General: well developed Orientation/consciousness: patient oriented x3 HEENT: Head: Yes normocephalic and Yes atraumatic Eyes: Conjunctivae: conjunctivae normal Neck: Neck: Yes normal visual inspection Chest: Chest palpation & inspection: normal inspection of the chest Resp: Effort & Inspection: normal respiratory effort GI: Inspection: Yes normal to inspection Palpation (GI): Soft to palpation : General: Yes CVA tenderness (left) Penis: normal penis Scrotum: scrotum normal Back/Spine/Pelvis: Back: CVA tenderness (left) Skin: General skin exam: no rashes or lesions noted Neuro: General: patient oriented x3 Extrem: General: No pedal edema Psych: Appearance: grossly normal Affect: normal affect Results Labs 08/02/22 04:12 08/02/22 04:12 Labs: Abnormal lab results 08/01/22 08/01/22 08/01/22 Range/Units 15:36 15:36 21:01 WBC (4.8-10.8) X10*3/uL RBC (4.60-5.80) X10*6/uL Hgb 12.6 L (14.0-18.0) g/dl Hct 40.1 L (42.0-52.0) % Immature Gran % (Auto) (0.0-0.4) % Neut % (Auto) 80.9 H (45-73) % Lymph % (Auto) 8.2 L (20-40) % Eos % (Auto) 4.9 H (0-4) % Lymph # (Auto) 0.8 L (1.2-4.9) X10*3/uL [place] # (Auto) (0.1-1.2) X10*3/uL Eos # (Auto) 0.5 H (0.0-0.4) X10*3/uL Abs Immat Gran (auto) (0.00-0.03) X10*3/uL Absolute Neuts (auto) (2.0-8.3) x10*3/uL PT (10.0-13.1) SEC INR (0.9-1.1) VBG HCO3 (22-26) mmol/L Potassium 5.2 H D (3.3-5.1) mmol/L Chloride (96-108) mmol/L Carbon Dioxide (22-29) mmol/L Anion Gap 11 L (12-20) BUN 17 H (9-16) mg/dL Random Glucose 119 H (60-115) mg/dL Phosphorus (2.7-4.5) mg/dL Total Bilirubin 1.1 H (0.0-1.0) mg/dL Alkaline Phosphatase 128 H (39-117) U/L Troponin I High Sens (<3.5-35.0) ng/L B-Natriuretic Peptide (<100) pg/mL Urine Protein 30 (1+) H (Neg-Trace) mg/dL Urine Blood Large (3+) H (Negative) Urine Nitrite Positive H (Negative) Ur Leukocyte Esterase Moderate (2+) H (Negative) Urine RBC >20 H (0-2) /HPF Urine WBC >50 H (0-5) /HPF 08/01/22 08/01/22 08/02/22 Range/Units 22:20 22:34 00:17 WBC 14.1 H (4.8-10.8) X10*3/uL RBC 3.96 L (4.60-5.80) X10*6/uL Hgb 10.7 L (14.0-18.0) g/dl Hct 33.9 L (42.0-52.0) % Immature Gran % (Auto) 0.8 H (0.0-0.4) % Neut % (Auto) 88.8 H (45-73) % Lymph % (Auto) 1.8 L (20-40) % Eos % (Auto) (0-4) % Lymph # (Auto) 0.3 L (1.2-4.9) X10*3/uL [place] # (Auto) (0.1-1.2) X10*3/uL Eos # (Auto) (0.0-0.4) X10*3/uL Abs Immat Gran (auto) 0.11 H (0.00-0.03) X10*3/uL Absolute Neuts (auto) 12.6 H (2.0-8.3) x10*3/uL PT (10.0-13.1) SEC INR (0.9-1.1) VBG HCO3 (22-26) mmol/L Potassium (3.3-5.1) mmol/L Chloride (96-108) mmol/L Carbon Dioxide (22-29) mmol/L Anion Gap (12-20) BUN (9-16) mg/dL Random Glucose (60-115) mg/dL Phosphorus (2.7-4.5) mg/dL Total Bilirubin (0.0-1.0) mg/dL Alkaline Phosphatase (39-117) U/L Troponin I High Sens 566.1 H* (<3.5-35.0) ng/L B-Natriuretic Peptide 872 H (<100) pg/mL Urine Protein (Neg-Trace) mg/dL Urine Blood (Negative) Urine Nitrite (Negative) Ur Leukocyte Esterase (Negative) Urine RBC (0-2) /HPF Urine WBC (0-5) /HPF 08/02/22 08/02/22 08/02/22 Range/Units 00:17 04:12 04:12 WBC 16.6 H (4.8-10.8) X10*3/uL RBC 3.79 L (4.60-5.80) X10*6/uL Hgb 10.3 L (14.0-18.0) g/dl Hct 32.3 L (42.0-52.0) % Immature Gran % (Auto) 0.5 H (0.0-0.4) % Neut % (Auto) 88.7 H (45-73) % Lymph % (Auto) 2.3 L (20-40) % Eos % (Auto) (0-4) % Lymph # (Auto) 0.4 L (1.2-4.9) X10*3/uL [place] # (Auto) 1.4 H (0.1-1.2) X10*3/uL Eos # (Auto) (0.0-0.4) X10*3/uL Abs Immat Gran (auto) 0.09 H (0.00-0.03) X10*3/uL Absolute Neuts (auto) 14.7 H (2.0-8.3) x10*3/uL PT (10.0-13.1) SEC INR (0.9-1.1) VBG HCO3 (22-26) mmol/L Potassium (3.3-5.1) mmol/L Chloride 110 H (96-108) mmol/L Carbon Dioxide 21 L 21 L (22-29) mmol/L Anion Gap (12-20) BUN 22 H 24 H (9-16) mg/dL Random Glucose (60-115) mg/dL Phosphorus 4.9 H (2.7-4.5) mg/dL Total Bilirubin (0.0-1.0) mg/dL Alkaline Phosphatase (39-117) U/L Troponin I High Sens (<3.5-35.0) ng/L B-Natriuretic Peptide (<100) pg/mL Urine Protein (Neg-Trace) mg/dL Urine Blood (Negative) Urine Nitrite (Negative) Ur Leukocyte Esterase (Negative) Urine RBC (0-2) /HPF Urine WBC (0-5) /HPF 08/02/22 08/02/22 08/02/22 Range/Units 04:12 04:12 04:14 WBC (4.8-10.8) X10*3/uL RBC (4.60-5.80) X10*6/uL Hgb (14.0-18.0) g/dl Hct (42.0-52.0) % Immature Gran % (Auto) (0.0-0.4) % Neut % (Auto) (45-73) % Lymph % (Auto) (20-40) % Eos % (Auto) (0-4) % Lymph # (Auto) (1.2-4.9) X10*3/uL [place] # (Auto) (0.1-1.2) X10*3/uL Eos # (Auto) (0.0-0.4) X10*3/uL Abs Immat Gran (auto) (0.00-0.03) X10*3/uL Absolute Neuts (auto) (2.0-8.3) x10*3/uL PT 17.1 H (10.0-13.1) SEC INR 1.5 H (0.9-1.1) VBG HCO3 20 L (22-26) mmol/L Potassium (3.3-5.1) mmol/L Chloride (96-108) mmol/L Carbon Dioxide (22-29) mmol/L Anion Gap (12-20) BUN (9-16) mg/dL Random Glucose (60-115) mg/dL Phosphorus (2.7-4.5) mg/dL Total Bilirubin (0.0-1.0) mg/dL Alkaline Phosphatase (39-117) U/L Troponin I High Sens 516.1 H* (<3.5-35.0) ng/L B-Natriuretic Peptide (<100) pg/mL Urine Protein (Neg-Trace) mg/dL Urine Blood (Negative) Urine Nitrite (Negative) Ur Leukocyte Esterase (Negative) Urine RBC (0-2) /HPF Urine WBC (0-5) /HPF Short CBC 08/01/22 08/02/22 08/02/22 Range/Units 15:36 00:17 04:12 WBC 9.7 14.1 H 16.6 H (4.8-10.8) X10*3/uL Hgb 12.6 L 10.7 L 10.3 L (14.0-18.0) g/dl Hct 40.1 L 33.9 L 32.3 L (42.0-52.0) % Plt Count 362 D 230 D 202 (160-400) X10*3/uL BMP 08/01/22 08/02/22 08/02/22 15:36 00:17 04:12 Sodium 140 139 141 Potassium 5.2 H D 4.5 4.8 Chloride 105 108 110 H Carbon Dioxide 29 21 L 21 L BUN 17 H 22 H 24 H Creatinine 1.08 1.10 1.12 Calcium 9.8 8.6 D 8.4 Liver Function 08/01/22 Range/Units 15:36 Total Bilirubin 1.1 H (0.0-1.0) mg/dL Direct Bilirubin 0.3 (0.0-0.5) mg/dL AST 19 (5-37) U/L ALT 18 (0-40) U/L Alkaline Phosphatase 128 H (39-117) U/L Albumin 4.0 (3.5-5.0) g/dL Urine 08/01/22 Range/Units 21:01 Urine Color Yellow Urine Appearance Cloudy Urine pH 5.5 (5.0-9.0) Ur Specific [place] 1.015 (1.005-1.025) Urine Protein 30 (1+) H (Neg-Trace) mg/dL Urine Glucose (UA) Negative (Negative) mg/dL All other labs normal. Imaging Additional studies: Date of Service: 08/01/22 EXAMINATION: CT ABDOMEN AND PELVIS WITHOUT CONTRAST? CLINICAL INFORMATION: Left flank pain? COMPARISON: CT chest dated 05/25/2022 and 02/23/2022? FINDINGS: IMAGE THORAX: Stable 7.1 mm mean diameter nodule in the left lower lobe. Emphysema. Mild bronchial thickening. Interstitial edema. Coronary calcifications.? LIVER, GALLBLADDER, AND BILIARY TREE: The liver is normal in size, shape, and attenuation. No focal hepatic lesion or biliary ductal dilatation is present. The gallbladder is unremarkable with no evidence of radiopaque gallstones, gallbladder wall thickening, or obvious pericholecystic inflammatory changes.? PANCREAS: Unremarkable.? SPLEEN: Unremarkable.? ADRENAL GLANDS: Unremarkable.? KIDNEYS AND URETERS: There is a 5 x 3 mm calculus in the mid left ureter at the level of the L4-L5 disc space associated moderate upstream hydroureteronephrosis and prominent perinephric fat stranding, with fluid even extending into the left anterior pararenal space. Nonobstructive stone or cluster of tiny stones within a dependent calyx, lower pole left kidney. No additional urinary calculi. BLADDER: Unremarkable.? GASTROINTESTINAL TRACT: Pancolonic diverticulosis, most concentrated within the sigmoid colon. No evidence of diverticulitis. Small sliding-type hiatal hernia. Stomach otherwise unremarkable. Normal small bowel.? ABDOMINAL WALL: No significant hernia is appreciated.? LYMPH NODES: Normal. VASCULAR: Aorta is atherosclerotic but normal caliber. PELVIC VISCERA: Marked prostatomegaly.? OSSEOUS STRUCTURES: No acute or suspicious osseous abnormalities. Severe degenerative changes throughout the imaged spine.? CT/CT abdomen pelvis wo IV con IMPRESSION: *? There is a 5 x 3 mm calculus in the mid LEFT ureter associated with moderate upstream hydroureteronephrosis and prominent perinephric fat stranding. *? Nonobstructive stone or cluster of tiny adjacent stones within a dependent calyx, lower pole left kidney. *? Pancolonic diverticulosis without evidence of diverticulitis. *? Marked prostatomegaly. *? Emphysema and interstitial edema at the lung bases. *? Stable 7.1 mm mean diameter nodule in the left lower lobe, unchanged since February 2022 Assessment and Plan (1) Sepsis: Status: Acute (2) Obstructive uropathy: Status: Acute (3) TIMOTHY (acute kidney injury): Status: Acute (4) UTI (urinary tract infection): Status: Acute Plan Plan for Cystoscopy, Left ureteral stent. Risks discussed included but not limited to, Irritative voiding symptoms, bladder spasms, urgency, blood in urine. Time Spent With Patient Time: Total time managing care of this patient today ____ minutes. Procedures Date of Service Date of Service: 08/02/22
--- NOTE | 2022-08-02 06:14 | MHC.SHP ---
Pre-Procedural Eval Section A Date of Service: 08/02/22 The patient is an INPATIENT: Yes The History & Physical has been completed within 30 days and I have reviewed it.: Yes Section B Chief Complaint: Nephrolithiasis, Afib with RVR Allergies: Allergies Allergy/AdvReac Type Severity Reaction Status Date / Time indomethacin [From INDOCIN] Allergy Intermediate RASH Verified 07/27/22 10:28 oxycodone [OXYCODONE] Allergy Intermediate VOMITING/RA Verified 07/27/22 10:28 SH Sulfa (Sulfonamide Allergy Intermediate BLISTERS, Verified 07/27/22 10:28 Antibiotics) sore on [SULFA (SULFONAMIDE the end of ANTIBIOTICS)] his penis acetaminophen [Percocet] AdvReac Unknown vomiting Verified 07/27/22 10:28 Plan Diagnosis/Plan: Unchanged I have reviewed the history and physical and performed a pertinent physical examination on my patient. No changes have occurred unless specified. Cysto Left ureteral stent, retrograde Time Spent With Patient Time: Total time managing care of this patient today ____ minutes.
--- NOTE | 2022-08-02 06:51 | P.CONAN_ITS ---
[facility] Active Problems Active Problems: All Active Problems (Updated 08/02/22 @ 00:32 by Gómez Montes De Oca NP) Sepsis (Acute) TIMOTHY (acute kidney injury) (Acute) Atrial fibrillation with RVR (Acute) Obstructive uropathy (Acute) UTI (urinary tract infection) (Acute) Ureter, calculus (Acute) Renal colic (Acute) Pneumonia due to COVID-19 virus (Acute) Elevated INR (Acute) COVID-19 (Acute) Atrial fibrillation with RVR (Acute) BPH w urinary obs/LUTS (Acute) COVID-19 (Acute) Weakness (Acute) Lightheadedness (Acute) A-fib (Acute) Prostatitis (Acute) Rib pain on right side (Acute) Osteoarthritis of left knee (Acute) Status post right knee replacement (Acute) Rotator cuff arthropathy of both shoulders (Acute) Bilateral knee pain (Acute) Past Medical History Medical History A-fib Bilateral knee pain BPH w urinary obs/LUTS COVID-19 Current use of anticoagulant therapy Lung nodule Osteoarthritis of left knee Recurrent UTI (urinary tract infection) Rotator cuff arthropathy of both shoulders Functional capacity: uses cane/walker Family History Family History Mother No problems noted. Father No problems noted. Family history of problems with anesthesia: No Surgical History Surgical History Status post right knee replacement History of Problems with Anesthesia: No Social History Social History Household Members: None Housing: House Do you presently have visiting nurse or other home services: No Patient Tobacco Use Status: Former Tobacco user Advance Directives Date on File: 02/28/22 service: No Current occupation: [employer] - right handed Current occupational exposures/hazards: No Meds Allergies Allergy/AdvReac Type Severity Reaction Status Date / Time indomethacin [From INDOCIN] Allergy Intermediate RASH Verified 07/27/22 10:28 oxycodone [OXYCODONE] Allergy Intermediate VOMITING/RA Verified 07/27/22 10:28 SH Sulfa (Sulfonamide Allergy Intermediate BLISTERS, Verified 07/27/22 10:28 Antibiotics) sore on [SULFA (SULFONAMIDE the end of ANTIBIOTICS)] his penis acetaminophen [Percocet] AdvReac Unknown vomiting Verified 07/27/22 10:28 Active Medications: Current Medications Atorvastatin Calcium (Atorvastatin Calcium 40 Mg Tablet) 40 mg PO DAILY [facility] Docusate Sodium (Docusate Sodium 100 Mg Capsule) 100 mg PO DAILY PRN PRN Reason: Constipation Sodium Chloride (Ns) 1,000 mls @ 100 mls/hr IVCONT .Q10H [facility] Last Admin: 08/01/22 21:35 Dose: 100 mls/hr Ceftriaxone Sodium 1 gm/ (Sodium Chloride) 50 mls @ 100 mls/hr IV Q24H [facility] Last Infusion: 08/01/22 23:45 Dose: Infused Phenylephrine HCl 20 mg/ (Sodium Chloride) 252 mls @ 0 mls/hr IVCONT .Q0M [facility]; Protocol Last Titration: 08/02/22 06:15 Dose: 0 mcg/kg/min, 0 mls/hr Ketorolac Tromethamine (Ketorolac Tromethamine 30 Mg/Ml Vial) 30 mg IVPUSH Q6H PRN PRN Reason: Pain, Moderate (Pain Scale 4-6 Stop: 08/06/22 20:28 Lorazepam (Lorazepam 0.5 Mg Tablet) 0.5 mg PO BID PRN PRN Reason: Anxiety Morphine Sulfate (Morphine Sulfate 4 Mg/Ml Cartridge) 4 mg IVPUSH Q4H PRN; Protocol PRN Reason: Pain, Severe (Pain Scale 7-10) Omeprazole (Omeprazole 20 Mg Capsule.Dr) 20 mg PO DAILY@0630 [facility] Last Admin: 08/02/22 05:42 Dose: Not Given Ondansetron HCl (Ondansetron Hcl 4 Mg/2 Ml Vial) 4 mg IVPUSH Q8H PRN PRN Reason: Nausea and Vomiting Paroxetine HCl (Paroxetine Hcl 30 Mg Tablet) 30 mg PO DAILY [facility] Propranolol HCl (Propranolol Hcl La 60 Mg Cap.Sa.24h) 60 mg PO DAILY [facility]; Protocol Sodium Chloride (0.9 % Sodium Chloride Flush 3 Ml Syringe) 3 ml IVFLUSH QSHIFT [facility] Last Admin: 08/02/22 00:08 Dose: Not Given Home Medications Medication Instructions Recorded Confirmed Last Taken Type atorvastatin 40 mg tablet 1 tab PO DAILY 08/01/22 08/01/22 Unknown History lorazepam 0.5 mg tablet 1 tab PO BID PRN Anxiety 08/01/22 08/01/22 Unknown History omeprazole 20 mg capsule,delayed 1 cap PO DAILY 08/01/22 08/01/22 Unknown History release paroxetine HCl 30 mg tablet 1 tab PO DAILY 08/01/22 08/01/22 Unknown History propranolol 60 mg capsule,24 1 cap PO DAILY 08/01/22 08/01/22 Unknown History hr,extended release warfarin 2.5 mg tablet 1 tab PO DAILY 08/01/22 08/01/22 Unknown History Exam Exam Date and Time: August 02, 2022 0651 Height,Weight and Vital Signs: Height 6 ft 1 in Weight 73.3 kg Last Vital Signs Temp 98.7 F 08/02/22 03:00 Pulse 84 08/02/22 06:15 Resp 25 H 08/02/22 06:00 BP 110/61 08/02/22 06:15 Pulse Ox 97 08/02/22 06:00 O2 Del Method 08/02/22 06:00 O2 Flow Rate 2 08/02/22 06:00 Pertinent Lab Results Pertinent Lab Results: Laboratory Tests 08/01/22 08/01/22 08/01/22 15:36 15:36 21:01 WBC 9.7 RBC 4.66 Hgb 12.6 L Hct 40.1 L MCV 86.1 MCH 27.0 MCHC 31.4 RDW 13.2 Plt Count 362 D MPV 9.8 Immature Gran % (Auto) 0.3 Neut % (Auto) 80.9 H Lymph % (Auto) 8.2 L [place] % (Auto) 5.1 Eos % (Auto) 4.9 H Baso % (Auto) 0.6 Lymph # (Auto) 0.8 L [place] # (Auto) 0.5 Eos # (Auto) 0.5 H Baso # (Auto) 0.1 Abs Immat Gran (auto) 0.03 Absolute Neuts (auto) 7.8 Absolute Nucleated RBC 0.000 Nucleated RBC % (auto) 0.0 PT INR VBG pH VBG pCO2 VBG pO2 VBG HCO3 VBG O2 Saturation VBG Base Excess Sodium 140 Potassium 5.2 H D Chloride 105 Carbon Dioxide 29 Anion Gap 11 L BUN 17 H Creatinine 1.08 Estim Creat Clear Calc 60.6 Estimated GFR > 60 Random Glucose 119 H Lactic Acid Calcium 9.8 Phosphorus Magnesium Total Bilirubin 1.1 H Direct Bilirubin 0.3 AST 19 ALT 18 Alkaline Phosphatase 128 H Troponin I High Sens B-Natriuretic Peptide Total Protein 6.9 Albumin 4.0 Lipase 26 Urine Color Yellow Urine Appearance Cloudy Urine pH 5.5 Ur Specific [place] 1.015 Urine Protein 30 (1+) H Urine Glucose (UA) Negative Urine Ketones Trace Urine Blood Large (3+) H Urine Nitrite Positive H Ur Leukocyte Esterase Moderate (2+) H Urine RBC >20 H Urine WBC >50 H Ur Squamous Epith Cells 0-2 Urine Bacteria 4+ Hyaline Casts 0-2 COVID-19 (JG) COVID-19 mChron 08/01/22 08/01/22 08/01/22 22:20 22:34 23:10 WBC RBC Hgb Hct MCV MCH MCHC RDW Plt Count MPV Immature Gran % (Auto) Neut % (Auto) Lymph % (Auto) [place] % (Auto) Eos % (Auto) Baso % (Auto) Lymph # (Auto) [place] # (Auto) Eos # (Auto) Baso # (Auto) Abs Immat Gran (auto) Absolute Neuts (auto) Absolute Nucleated RBC Nucleated RBC % (auto) PT INR VBG pH VBG pCO2 VBG pO2 VBG HCO3 VBG O2 Saturation VBG Base Excess Sodium Potassium Chloride Carbon Dioxide Anion Gap BUN Creatinine Estim Creat Clear Calc Estimated GFR Random Glucose Lactic Acid Calcium Phosphorus Magnesium Total Bilirubin Direct Bilirubin AST ALT Alkaline Phosphatase Troponin I High Sens 566.1 H* B-Natriuretic Peptide 872 H Total Protein Albumin Lipase Urine Color Urine Appearance Urine pH Ur Specific [place] Urine Protein Urine Glucose (UA) Urine Ketones Urine Blood Urine Nitrite Ur Leukocyte Esterase Urine RBC Urine WBC Ur Squamous Epith Cells Urine Bacteria Hyaline Casts COVID-19 (JG) Negative COVID-19 [employer] Com See Note 08/01/22 08/02/22 08/02/22 23:48 00:17 00:17 WBC 14.1 H RBC 3.96 L Hgb 10.7 L Hct 33.9 L MCV 85.6 MCH 27.0 MCHC 31.6 RDW 13.3 Plt Count 230 D MPV 10.0 Immature Gran % (Auto) 0.8 H Neut % (Auto) 88.8 H Lymph % (Auto) 1.8 L [place] % (Auto) 8.5 Eos % (Auto) 0.0 Baso % (Auto) 0.1 Lymph # (Auto) 0.3 L [place] # (Auto) 1.2 Eos # (Auto) 0.0 Baso # (Auto) 0.0 Abs Immat Gran (auto) 0.11 H Absolute Neuts (auto) 12.6 H Absolute Nucleated RBC 0.000 Nucleated RBC % (auto) 0.0 PT INR VBG pH VBG pCO2 VBG pO2 VBG HCO3 VBG O2 Saturation VBG Base Excess Sodium 139 Potassium 4.5 Chloride 108 Carbon Dioxide 21 L Anion Gap 15 BUN 22 H Creatinine 1.10 Estim Creat Clear Calc 59.5 Estimated GFR > 60 Random Glucose 84 Lactic Acid 1.4 Calcium 8.6 D Phosphorus Magnesium Total Bilirubin Direct Bilirubin AST ALT Alkaline Phosphatase Troponin I High Sens B-Natriuretic Peptide Total Protein Albumin Lipase Urine Color Urine Appearance Urine pH Ur Specific [place] Urine Protein Urine Glucose (UA) Urine Ketones Urine Blood Urine Nitrite Ur Leukocyte Esterase Urine RBC Urine WBC Ur Squamous Epith Cells Urine Bacteria Hyaline Casts COVID-19 (JG) COVID-19 Clin Com 08/02/22 08/02/22 08/02/22 04:12 04:12 04:12 WBC 16.6 H RBC 3.79 L Hgb 10.3 L Hct 32.3 L MCV 85.2 MCH 27.2 MCHC 31.9 RDW 13.4 Plt Count 202 MPV 9.6 Immature Gran % (Auto) 0.5 H Neut % (Auto) 88.7 H Lymph % (Auto) 2.3 L [place] % (Auto) 8.3 Eos % (Auto) 0.0 Baso % (Auto) 0.2 Lymph # (Auto) 0.4 L [place] # (Auto) 1.4 H Eos # (Auto) 0.0 Baso # (Auto) 0.0 Abs Immat Gran (auto) 0.09 H Absolute Neuts (auto) 14.7 H Absolute Nucleated RBC 0.000 Nucleated RBC % (auto) 0.0 PT 17.1 H INR 1.5 H VBG pH VBG pCO2 VBG pO2 VBG HCO3 VBG O2 Saturation VBG Base Excess Sodium 141 Potassium 4.8 Chloride 110 H Carbon Dioxide 21 L Anion Gap 15 BUN 24 H Creatinine 1.12 Estim Creat Clear Calc 58.4 Estimated GFR > 60 Random Glucose 92 Lactic Acid Calcium 8.4 Phosphorus 4.9 H Magnesium 1.9 Total Bilirubin Direct Bilirubin AST ALT Alkaline Phosphatase Troponin I High Sens B-Natriuretic Peptide Total Protein Albumin Lipase Urine Color Urine Appearance Urine pH Ur Specific [place] Urine Protein Urine Glucose (UA) Urine Ketones Urine Blood Urine Nitrite Ur Leukocyte Esterase Urine RBC Urine WBC Ur Squamous Epith Cells Urine Bacteria Hyaline Casts COVID-19 (JG) COVID-19 Clin Com 08/02/22 08/02/22 04:12 04:14 WBC RBC Hgb Hct MCV MCH MCHC RDW Plt Count MPV Immature Gran % (Auto) Neut % (Auto) Lymph % (Auto) [place] % (Auto) Eos % (Auto) Baso % (Auto) Lymph # (Auto) [place] # (Auto) Eos # (Auto) Baso # (Auto) Abs Immat Gran (auto) Absolute Neuts (auto) Absolute Nucleated RBC Nucleated RBC % (auto) PT INR VBG pH 7.42 VBG pCO2 30 VBG pO2 98 VBG HCO3 20 L VBG O2 Saturation 99.0 VBG Base Excess -3.1 Sodium Potassium Chloride Carbon Dioxide Anion Gap BUN Creatinine Estim Creat Clear Calc Estimated GFR Random Glucose Lactic Acid Calcium Phosphorus Magnesium Total Bilirubin Direct Bilirubin AST ALT Alkaline Phosphatase Troponin I High Sens 516.1 H* B-Natriuretic Peptide Total Protein Albumin Lipase Urine Color Urine Appearance Urine pH Ur Specific [place] Urine Protein Urine Glucose (UA) Urine Ketones Urine Blood Urine Nitrite Ur Leukocyte Esterase Urine RBC Urine WBC Ur Squamous Epith Cells Urine Bacteria Hyaline Casts COVID-19 (JG) COVID-19 Clin Com Airway Mallampati Class: II TM Dist: >3cm Heart: irregular Lungs: CTA Assessment and Plan Final Anesthetic Review Family History of Problems with Anesthesia: No History of Problems with Anesthesia: No ASA Class: III and Emergency Final Preanesthetic Review: Meds/Allgs Chart Reviewed, Consent Obtained/Reviewed and Anes Risks/Benef Reviewed Patient Risk: Intermediate Procedure Risk: Low Anesthetic Plan Anesthetic Plan: GA Disposition: Standard PACU
--- NOTE | 2022-08-02 07:04 | P.OP_ITS ---
Operative Note Operative Note Date of Service: 08/02/22 Narrative: PreOperative Diagnosis:?? Obstructive uropathy, UTI Sepsis, left ureteral stone Post Operative Diagnosis:?? ?Obstructive uropathy, UTI Sepsis, left ureteral stone Procedure: Cystoscopy, - left ureteral stent placement 6 fr x multi-length Surgeon:?Dr Cheryl North Anesthesia:? General Indications for procedure: 77 year old with h/o nephrolithiasis admitted due to left flank pain, CT imaging left ureteral stone with hydronephrosis, clinically decompensated with signs of sepsis, transferred to the ICU, here for urgent stent placement Procedure: After informed consent was verified the patient was brought to the operating placed on the OR table in supine position.? General Anesthesia was administered per protocol.? The patient was placed in lithotomy position, prepped and draped in the usual sterile fashion.? Safety pause time-out and side of surgery confirmed.? Patient receiving scheduled broad coverage Antibiotics, no additional antibiotics administered. A 22 Citizen [place] cystoscope was inserted transurethrally, the bulbous urethra was within normal limits. The prostatic urethra was obstructive, with trilobar enlargement noted. The bladder was visualized.? The left ureteral orifice was identified. The? left ureteric orifice was cannulated? and A hydrophilic guidewire was placed up to the level of the renal pelvis under fluoroscopy. The ureteral catheter was passed to the renal pelvis and urine was sent for c/s. A? 6 [place] by multi- length stent was placed into the ureter and renal pelvis under a combination of fluoroscopy and direct visualization. The bladder was drained.? The rigid cystoscope was removed. ? 18 fr coude hart was placed. The patient tolerated the procedure well and was brought to the recovery room in stable condition. Complications: None Drains: Ureteral stent as dictated above
[2022-08-02] MEDS: 0.9 % Sodium Chloride 1,000 ML 100 ML IVCONT (07:31)
[2022-08-02] MEDS: 0.9 % Sodium Chloride Flush 3 ML SYRINGE IVFLUSH ×3 (07:35→23:41)
[2022-08-02] MEDS: PARoxetine HCL 30 MG TABLET PO (09:11)
[2022-08-02] MEDS: Atorvastatin Calcium 40 MG TABLET PO (09:11)
[2022-08-02] MEDS: Omeprazole 20 MG CAPSULE.DR PO (09:17)
--- NOTE | 2022-08-02 10:31 | MHC.CM.PN ---
Addendum entered by Lali Tam 08/02/22 10:34: VAX X3 COVID Original Note: MALE 77 DX AFIB RVR S/P RENAL STONE REMOVAL/ STENT PLACEMENT LIVES ALONE. NEW HCP DOCUMENTED DP HOME SELF CARE PATIENT WILL ARRANGE TRANSPORT HOME
--- NOTE | 2022-08-02 10:56 | PM.CCPN ---
Subjective Subjective Date of Service: 08/02/22 Interval History: 77-year-old gentleman with underlying AFib on anticoagulation, BPH, renal stones admitted on 08/01/2022 with left-sided hydroureteronephrosis secondary to obstructing renal calculus with UTI, initially admitted to telemetry work, however with poor response to IV fluids requiring monitoring in the intensive care unit and brief vasopressor support. Now status post stenting by Urology. Critical Care Time (minutes): 45 Physical Exam Vital Signs: Vital Signs: Last Vital Signs Temp 98.2 F 08/02/22 10:00 Pulse 80 08/02/22 10:00 Resp 24 H 08/02/22 10:00 BP 105/59 L 08/02/22 10:00 Pulse Ox 98 08/02/22 10:00 O2 Del Method 08/02/22 10:00 O2 Flow Rate 2 08/02/22 10:00 Oxygen Flow Rate 2 08/02/22 06:55 BMI result Body Mass Index 21.3 Const: General: no acute distress, alert and awake Eyes: Sclerae: sclerae normal EOM: EOMs intact bilaterally Neck: Neck: Yes no lymphadenopathy, Yes trachea midline and Yes supple Resp: Effort & Inspection: normal respiratory effort and no respiratory distress Auscultation: clear to auscultation bilaterally Cardio: Rate: regular rate Rhythm: regular rhythm Heart sounds: no gallops, no murmurs and no rubs GI: Palpation (GI): Soft to palpation and Other GI palpation findings present ( Nontender) Auscultation: normal bowel sounds Extrem: General: Yes no pedal edema, No clubbing and No cyanosis Objective Data Labs 08/02/22 04:12 08/02/22 04:12 Labs: Laboratory Results - last 24 hr 08/01/22 08/01/22 08/01/22 15:36 15:36 21:01 WBC 9.7 RBC 4.66 Hgb 12.6 L Hct 40.1 L MCV 86.1 MCH 27.0 MCHC 31.4 RDW 13.2 Plt Count 362 D MPV 9.8 Immature Gran % (Auto) 0.3 Neut % (Auto) 80.9 H Lymph % (Auto) 8.2 L [place] % (Auto) 5.1 Eos % (Auto) 4.9 H Baso % (Auto) 0.6 Lymph # (Auto) 0.8 L [place] # (Auto) 0.5 Eos # (Auto) 0.5 H Baso # (Auto) 0.1 Abs Immat Gran (auto) 0.03 Absolute Neuts (auto) 7.8 Absolute Nucleated RBC 0.000 Nucleated RBC % (auto) 0.0 PT INR VBG pH VBG pCO2 VBG pO2 VBG HCO3 VBG O2 Saturation VBG Base Excess Sodium 140 Potassium 5.2 H D Chloride 105 Carbon Dioxide 29 Anion Gap 11 L BUN 17 H Creatinine 1.08 Estim Creat Clear Calc 60.6 Estimated GFR > 60 Random Glucose 119 H Lactic Acid Calcium 9.8 Phosphorus Magnesium Total Bilirubin 1.1 H Direct Bilirubin 0.3 AST 19 ALT 18 Alkaline Phosphatase 128 H Troponin I High Sens B-Natriuretic Peptide Total Protein 6.9 Albumin 4.0 Lipase 26 Urine Color Yellow Urine Appearance Cloudy Urine pH 5.5 Ur Specific [place] 1.015 Urine Protein 30 (1+) H Urine Glucose (UA) Negative Urine Ketones Trace Urine Blood Large (3+) H Urine Nitrite Positive H Ur Leukocyte Esterase Moderate (2+) H Urine RBC >20 H Urine WBC >50 H Ur Squamous Epith Cells 0-2 Urine Bacteria 4+ Hyaline Casts 0-2 COVID-19 (JG) COVID-19 Clin Com 08/01/22 08/01/22 08/01/22 22:20 22:34 23:10 WBC RBC Hgb Hct MCV MCH MCHC RDW Plt Count MPV Immature Gran % (Auto) Neut % (Auto) Lymph % (Auto) [place] % (Auto) Eos % (Auto) Baso % (Auto) Lymph # (Auto) [place] # (Auto) Eos # (Auto) Baso # (Auto) Abs Immat Gran (auto) Absolute Neuts (auto) Absolute Nucleated RBC Nucleated RBC % (auto) PT INR VBG pH VBG pCO2 VBG pO2 VBG HCO3 VBG O2 Saturation VBG Base Excess Sodium Potassium Chloride Carbon Dioxide Anion Gap BUN Creatinine Estim Creat Clear Calc Estimated GFR Random Glucose Lactic Acid Calcium Phosphorus Magnesium Total Bilirubin Direct Bilirubin AST ALT Alkaline Phosphatase Troponin I High Sens 566.1 H* B-Natriuretic Peptide 872 H Total Protein Albumin Lipase Urine Color Urine Appearance Urine pH Ur Specific [place] Urine Protein Urine Glucose (UA) Urine Ketones Urine Blood Urine Nitrite Ur Leukocyte Esterase Urine RBC Urine WBC Ur Squamous Epith Cells Urine Bacteria Hyaline Casts COVID-19 (JG) Negative COVID-19 Clin Com See Note 08/01/22 08/02/22 08/02/22 23:48 00:17 00:17 WBC 14.1 H RBC 3.96 L Hgb 10.7 L Hct 33.9 L MCV 85.6 MCH 27.0 MCHC 31.6 RDW 13.3 Plt Count 230 D MPV 10.0 Immature Gran % (Auto) 0.8 H Neut % (Auto) 88.8 H Lymph % (Auto) 1.8 L [place] % (Auto) 8.5 Eos % (Auto) 0.0 Baso % (Auto) 0.1 Lymph # (Auto) 0.3 L [place] # (Auto) 1.2 Eos # (Auto) 0.0 Baso # (Auto) 0.0 Abs Immat Gran (auto) 0.11 H Absolute Neuts (auto) 12.6 H Absolute Nucleated RBC 0.000 Nucleated RBC % (auto) 0.0 PT INR VBG pH VBG pCO2 VBG pO2 VBG HCO3 VBG O2 Saturation VBG Base Excess Sodium 139 Potassium 4.5 Chloride 108 Carbon Dioxide 21 L Anion Gap 15 BUN 22 H Creatinine 1.10 Estim Creat Clear Calc 59.5 Estimated GFR > 60 Random Glucose 84 Lactic Acid 1.4 Calcium 8.6 D Phosphorus Magnesium Total Bilirubin Direct Bilirubin AST ALT Alkaline Phosphatase Troponin I High Sens B-Natriuretic Peptide Total Protein Albumin Lipase Urine Color Urine Appearance Urine pH Ur Specific [place] Urine Protein Urine Glucose (UA) Urine Ketones Urine Blood Urine Nitrite Ur Leukocyte Esterase Urine RBC Urine WBC Ur Squamous Epith Cells Urine Bacteria Hyaline Casts COVID-19 (JG) COVID-19 Clin Com 08/02/22 08/02/22 08/02/22 04:12 04:12 04:12 WBC 16.6 H RBC 3.79 L Hgb 10.3 L Hct 32.3 L MCV 85.2 MCH 27.2 MCHC 31.9 RDW 13.4 Plt Count 202 MPV 9.6 Immature Gran % (Auto) 0.5 H Neut % (Auto) 88.7 H Lymph % (Auto) 2.3 L [place] % (Auto) 8.3 Eos % (Auto) 0.0 Baso % (Auto) 0.2 Lymph # (Auto) 0.4 L [place] # (Auto) 1.4 H Eos # (Auto) 0.0 Baso # (Auto) 0.0 Abs Immat Gran (auto) 0.09 H Absolute Neuts (auto) 14.7 H Absolute Nucleated RBC 0.000 Nucleated RBC % (auto) 0.0 PT 17.1 H INR 1.5 H VBG pH VBG pCO2 VBG pO2 VBG HCO3 VBG O2 Saturation VBG Base Excess Sodium 141 Potassium 4.8 Chloride 110 H Carbon Dioxide 21 L Anion Gap 15 BUN 24 H Creatinine 1.12 Estim Creat Clear Calc 58.4 Estimated GFR > 60 Random Glucose 92 Lactic Acid Calcium 8.4 Phosphorus 4.9 H Magnesium 1.9 Total Bilirubin Direct Bilirubin AST ALT Alkaline Phosphatase Troponin I High Sens B-Natriuretic Peptide Total Protein Albumin Lipase Urine Color Urine Appearance Urine pH Ur Specific [place] Urine Protein Urine Glucose (UA) Urine Ketones Urine Blood Urine Nitrite Ur Leukocyte Esterase Urine RBC Urine WBC Ur Squamous Epith Cells Urine Bacteria Hyaline Casts COVID-19 (JG) COVID-19 [employer] 08/02/22 08/02/22 04:12 04:14 WBC RBC Hgb Hct MCV MCH MCHC RDW Plt Count MPV Immature Gran % (Auto) Neut % (Auto) Lymph % (Auto) [place] % (Auto) Eos % (Auto) Baso % (Auto) Lymph # (Auto) [place] # (Auto) Eos # (Auto) Baso # (Auto) Abs Immat Gran (auto) Absolute Neuts (auto) Absolute Nucleated RBC Nucleated RBC % (auto) PT INR VBG pH 7.42 VBG pCO2 30 VBG pO2 98 VBG HCO3 20 L VBG O2 Saturation 99.0 VBG Base Excess -3.1 Sodium Potassium Chloride Carbon Dioxide Anion Gap BUN Creatinine Estim Creat Clear Calc Estimated GFR Random Glucose Lactic Acid Calcium Phosphorus Magnesium Total Bilirubin Direct Bilirubin AST ALT Alkaline Phosphatase Troponin I High Sens 516.1 H* B-Natriuretic Peptide Total Protein Albumin Lipase Urine Color Urine Appearance Urine pH Ur Specific [place] Urine Protein Urine Glucose (UA) Urine Ketones Urine Blood Urine Nitrite Ur Leukocyte Esterase Urine RBC Urine WBC Ur Squamous Epith Cells Urine Bacteria Hyaline Casts COVID-19 (JG) COVID-19 Clin Com Progress Note: A&P Assessment and plan (1) TIMOTHY (acute kidney injury): Status: Acute (2) Atrial fibrillation with RVR: Status: Acute (3) Obstructive uropathy: Status: Acute (4) UTI (urinary tract infection): Status: Acute Plan Assessment: 77-year-old gentleman admitted with left hydronephrosis secondary to obstructing renal calculus with likely Gram-negative UTI, now status post stenting Plan: Neuro: No acute issues. Cardiac: titrated off pressors. Underlying AFib, resume anticoagulation in 24 hours postop. Pulmonary: No acute issues. Renal: acute renal failure secondary to obstructing renal calculus with hydronephrosis, now status post stenting. Improving. Neurology service care appreciated. Continue to monitor renal indices and urine output. Endo: No acute issues. GI: No acute issues. ID: Likely Gram-negative UTI versus pyelonephritis empirically covered with ceftriaxone. Heme/Onc: No acute issues. Psych: No acute issues. Miscellaneous: No acute issues. Prophylaxis: intermittent pneumatic compression Diet: Regular Critical care time spent: 45 minutes Quality Stroke Does the patient have a stroke diagnosis?: No VTE Prior VTE?: No VTE Risk Level:: Medical - moderate - high VTE Device Contraindication: N/A - Device Ordered VTE Drug Contraindication: Treatment Not Indicated
--- NOTE | 2022-08-02 11:40 | PM.SEPBOLA4 ---
Sepsis Bolus Exclusion Sepsis Bolus Exclusion Date of Occurrence: 08/02/22 This patient met severe sepsis criteria due to the following condition(s):: Hypotension In my clinical judgement the administration of 30 ml/kg of crystalloid would be detrimental to this patient due to the patient's following conditions:: Concern for fluid overload (Initial fluid bolus given in ER) Replace the 30 mls/kg with (*zero amount not acceptable): *Note: One of the higgins must be documented Crystalloids amount given in mls: (rate must be at least 150cc/hr): 1,000 Colloids amount given in mls:: 0 At a rate of (must be at least 150cchr):: 999
[2022-08-02] MEDS: Albumin Human 25 % 100 ML IV ×2 (15:28→16:32)
[2022-08-02] MEDS: cefTRIAXone sodium 1 GM in 0.9 % Sodium Chloride 50 ML IV (21:11)
[2022-08-03] VITALS (10 sets, daily range): BP systolic 104–154; BP diastolic 64–86; PULSE 69–96; RESP 12–20; TEMP 36.9–38.7; O2SAT 92–97
[2022-08-03] MEDS: Omeprazole 20 MG CAPSULE.DR PO (06:05)
[2022-08-03 07:21] LABS: MANUAL DIFF FLAG NO
[2022-08-03 07:24] LABS: Basophils Percent Auto 0.4 % (0-2); Eosinophils Absolute Auto 0.2 X10*3/uL (0.0-0.4); Eosinophils Percent Auto 1.8 % (0-4); Hematocrit 29.3 % (42.0-52.0); Hemoglobin 9.1 g/dl (14.0-18.0); Imm Gran Abs Auto 0.04 X10*3/uL (0.00-0.03); Imm Gran Pct Auto 0.5 % (0.0-0.4); Lymphocytes Absolute Auto 0.7 X10*3/uL (1.2-4.9); Lymphocytes Percent Auto 8.5 % (20-40); Mean Corpuscular HGB Conc 31.1 g/dl (31.0-36.0); Mean Corpuscular Volume 86.9 fL (80.0-98.0); Mean Platelet Volume 10.3 fL (9.4-12.4); Monocytes Absolute Auto 0.8 X10*3/uL (0.1-1.2); Monocytes Percent Auto 9.6 % (2-11); Neutrophils Absolute Auto 6.8 x10*3/uL (2.0-8.3); Neutrophils Percent Auto 79.2 % (45-73); Platelet Count 165 X10*3/uL (160-400); Red Blood Count 3.37 X10*6/uL (4.60-5.80); Red Cell Distribution Width 13.6 % (11.0-16.0); White Blood Count 8.6 X10*3/uL (4.8-10.8)
[2022-08-03 07:39] LABS: VBG Base Excess 0.8 mmol/L; VBG HCO3 23 mmol/L (22-26); VBG pCO2 32 mmHg; VBG pH 7.47 (7.32-7.43); VBG pO2 218 mmHg
[2022-08-03 07:41] LABS: Venous Blood Gas Refer to POC result
[2022-08-03 07:54] LABS: Albumin Level 3.2 g/dL (3.5-5.0); Anion Gap 9 (12-20); Blood Urea Nitrogen 19 mg/dL (9-16); Calcium 8.3 mg/dL (8.4-10.2); Carbon Dioxide 25 mmol/L (22-29); Chloride 110 mmol/L (96-108); Creatinine Clr Calc Pharmacy 88.2; Estimated Glomerular Filt Rate > 60; Glucose Random 100 mg/dL (60-115); Phosphorus 1.6 mg/dL (2.7-4.5); Potassium 4.2 mmol/L (3.3-5.1); Sodium 140 mmol/L (135-145)
[2022-08-03] MEDS: PARoxetine HCL 30 MG TABLET PO (09:07)
[2022-08-03] MEDS: 0.9 % Sodium Chloride Flush 3 ML SYRINGE IVFLUSH ×3 (09:07→23:10)
[2022-08-03] MEDS: Atorvastatin Calcium 40 MG TABLET PO (09:07)
--- NOTE | 2022-08-03 10:12 | HO.POSTANES ---
Post Anesthesia Evaluation Post Anesthesia Evaluation Vital Signs: Vital Signs Temp Pulse Resp BP Pulse Ox O2 Del Method O2 Flow Rate 08/03/22 07:28 87 122/67 08/03/22 07:20 98.6 F 87 12 122/67 95 Nasal Cannula 2 08/03/22 06:07 97 Nasal Cannula 08/03/22 04:00 98.4 F 83 20 120/75 97 Room Air 08/03/22 00:00 99.2 F 87 16 104/64 95 Nasal Cannula 2 Anesthesia: General LMA Mental Status: Awake Pain Control: Satisfactory Nausea/Vomiting: None Hydration: Adequate Anesthesia-Related Issues: No Anes. Related Issues
--- NOTE | 2022-08-03 16:39 | HO.PM.IMPN ---
Subjective Subjective Date of Service: 08/03/22 Interval History: feels well. Some flank pain after stent but markedly improved Review of Systems denies chest pain Denies shortness of breath Denies nausea vomiting diarrhea Denies fever chills Physical Exam Vital Signs: Vital Signs: Last Vital Signs Temp 99.3 F 08/03/22 15:17 Pulse 93 08/03/22 15:17 Resp 17 08/03/22 15:17 BP 124/70 08/03/22 15:17 Pulse Ox 94 08/03/22 15:17 O2 Del Method 08/03/22 15:17 O2 Flow Rate 2 08/03/22 07:20 Oxygen Flow Rate 2 08/03/22 06:07 BMI result Body Mass Index 21.3 Const: Other: awake alert no acute distress Resp: Other: clear to auscultation bilaterally no rales rhonchi or wheezes Cardio: Other: no S4; positive S1-S2; no S3 murmurs rubs or gallops GI: Other: soft nontender nondistended normoactive bowel sounds Extrem: Other: no edema bilaterally Objective Data Active Medications Atorvastatin Calcium (Atorvastatin Calcium 40 Mg Tablet) 40 mg PO DAILY [facility] Last Admin: 08/03/22 09:07 Dose: 40 mg Documented By: MARY Docusate Sodium (Docusate Sodium 100 Mg Capsule) 100 mg PO DAILY PRN PRN Reason: Constipation Ceftriaxone Sodium 1 gm/ (Sodium Chloride) 50 mls @ 100 mls/hr IV Q24H [facility] Last Infusion: 08/02/22 22:37 Dose: 0 mls/hr Documented By: STUART Promethazine HCl 12.5 mg/ (Sodium Chloride) 50.5 mls @ 202 mls/hr IV ONCE PRN PRN Reason: Nausea and Vomiting Lorazepam (Lorazepam 0.5 Mg Tablet) 0.5 mg PO BID PRN PRN Reason: Anxiety Omeprazole (Omeprazole 20 Mg Capsule.) 20 mg PO DAILY@0630 [facility] Last Admin: 08/03/22 06:05 Dose: 20 mg Documented By: MICHELINE Ondansetron HCl (Ondansetron Hcl 4 Mg/2 Ml Vial) 4 mg IVPUSH Q8H PRN PRN Reason: Nausea and Vomiting Ondansetron HCl (Ondansetron Hcl 4 Mg/2 Ml Vial) 4 mg IVPUSH ONCE PRN PRN Reason: Nausea and Vomiting Paroxetine HCl (Paroxetine Hcl 30 Mg Tablet) 30 mg PO DAILY [facility] Last Admin: 08/03/22 09:07 Dose: 30 mg Documented By: MARY Sodium Chloride (0.9 % Sodium Chloride Flush 3 Ml Syringe) 3 ml IVFLUSH QSHIFT [facility] Last Admin: 08/03/22 09:07 Dose: 3 ml Documented By: MARY Labs 08/03/22 07:08 08/03/22 07:08 Labs: Laboratory Results - last 24 hr 08/03/22 08/03/22 08/03/22 07:08 07:08 07:22 MCV 86.9 MCH 27.0 MCHC 31.1 RDW 13.6 Plt Count 165 MPV 10.3 Immature Gran % (Auto) 0.5 H Neut % (Auto) 79.2 H Lymph % (Auto) 8.5 L [place] % (Auto) 9.6 Eos % (Auto) 1.8 Baso % (Auto) 0.4 Lymph # (Auto) 0.7 L [place] # (Auto) 0.8 Eos # (Auto) 0.2 Baso # (Auto) 0.0 Abs Immat Gran (auto) 0.04 H Absolute Neuts (auto) 6.8 Absolute Nucleated RBC 0.000 Nucleated RBC % (auto) 0.0 VBG pH 7.47 H VBG pCO2 32 VBG pO2 218 VBG HCO3 23 VBG O2 Saturation 100.0 VBG Base Excess 0.8 Anion Gap 9 L Estim Creat Clear Calc 88.2 Estimated GFR > 60 Random Glucose 100 Calcium 8.3 L Phosphorus 1.6 L Magnesium 2.0 Albumin 3.2 L Microbiology Microbiology Results: Microbiology 08/01/22 22:30 Urine Culture - Preliminary Urine clean catch - Urine zhang top Gram negative janee 08/01/22 22:34 Blood Culture - Preliminary Blood - Venous No growth after 24 hours. 08/01/22 22:34 Blood Culture - Preliminary Blood - Venous No growth after 24 hours. Assessment and Plan (1) Sepsis: Status: Acute (2) Obstructive uropathy: Status: Acute (3) UTI (urinary tract infection): Status: Acute (4) TIMOTHY (acute kidney injury): Status: Acute (5) Atrial fibrillation with RVR: Status: Acute Plan 77-year-old male with history of paroxysmal atrial fibrillation anticoagulated with Coumadin, BPH with LUTS, osteoarthritis, hypertension, GERD, history nephrolithiasis, and depression admitted for management of obstructive uropathy with TIMOTHY. 1.Sepsis secondary to obstructive uropathy - sepsis is resolved. - stent placed by Urology 2.Acute kidney injury-secondary to obstructive uropathy - resolved with volume repletion -follow renals/divalents 3.Acute UTI - preliminary urine culture Gram-negative rods - continue ceftriaxone (3) - when gram-negative rods identify and blood cultures negative times 40 hours can DC to 4.Paroxysmal atrial fibrillation with RVR - rate control acceptable - hold Coumadin pending stent removal 5.GERD -continue PPI DVT prophylaxis- SCPs for now, resume Coumadin postoperatively Full code Patient requires inpatient stay of at least 2 midnights for management obstructive uropathy requiring surgical intervention as well as atrial fibrillation with RVR requiring close monitoring on telemetry as well as expert consultation Time Spent With Patient Time: Total time managing care of this patient today ____ minutes. Quality Stroke Does the patient have a stroke diagnosis?: No VTE Prior VTE?: No VTE Risk Level:: Medical - moderate - high VTE Device Contraindication: N/A - Device Ordered VTE Drug Contraindication: Treatment Not Indicated
[2022-08-03] MEDS: cefTRIAXone sodium 1 GM in 0.9 % Sodium Chloride 50 ML IV (22:00)
[2022-08-03] MEDS: Ketotifen Fumarate 0.025% Oph 5 ML DRPBTL 1 DROP EYE-BOTH (22:01)
--- NOTE | 2022-08-03 22:09 | PC.NURSE ---
Pt has temporal temp of 100.3, he reports chills. notified. see new orders.
[2022-08-03 22:50] LABS: Lactic Acid 1.2 mmol/L (0.5-2.0)
[2022-08-03] MEDS: Acetaminophen 325 MG TABLET 650 MG PO (23:08)
[2022-08-04 02:53] VITALS: TEMP 36.5
[2022-08-04 03:33] VITALS: BP 108/66; PULSE 89; RESP 16; TEMP 36.3; O2SAT 96
[2022-08-04] MEDS: Omeprazole 20 MG CAPSULE.DR PO (05:41)
[2022-08-04 07:44] VITALS: BP 130/82; PULSE 93; RESP 18; TEMP 35.6; O2SAT 95
[2022-08-04 08:00] VITALS: BP 126/60; PULSE 89; RESP 18; TEMP 36.6; O2SAT 96
[2022-08-04] MEDS: Atorvastatin Calcium 40 MG TABLET PO (08:56)
[2022-08-04] MEDS: 0.9 % Sodium Chloride Flush 3 ML SYRINGE IVFLUSH (08:56)
[2022-08-04] MEDS: PARoxetine HCL 30 MG TABLET PO (08:56)
[2022-08-04] MEDS: Ketotifen Fumarate 0.025% Oph 5 ML DRPBTL 1 DROP EYE-BOTH (08:56)
[2022-08-04 11:59] VITALS: BP 120/74; PULSE 87; RESP 18; TEMP 36.7; O2SAT 96
[2022-08-04 12:00] VITALS: BP 120/74; PULSE 87; RESP 18; TEMP 36.6; O2SAT 98
--- NOTE | 2022-08-04 12:01 | MHC.CM.PN ---
pot dcd home no skilled servceis ordered by
--- NOTE | 2022-08-04 12:19 | P.DS_ITS ---
DS: Providers Provider Date of Service: 08/04/22 Date of admission: 08/01/22 20:24 Date of discharge: 08/04/22 Primary care physician: Chris Walker MD Consults: 08/01/22 20:58 Consult to Urology Routine Consulting Provider: Cheryl North Reason for consultation: obstructive uropathy DS: Diagnosis Discharge Diagnosis (1) Sepsis: Status: Acute (2) Obstructive uropathy: Status: Acute (3) UTI (urinary tract infection): Status: Acute (4) TIMOTHY (acute kidney injury): Status: Acute (5) Atrial fibrillation with RVR: Status: Acute DS: Summary Hospital Course Hospital Course: 77-year-old male with history of paroxysmal atrial fibrillation anticoagulated with Coumadin, BPH with LUTS, osteoarthritis, hypertension, GERD, history nephrolithiasis, and depression presented to the ED for evaluation of severe left flank pain that started earlier today.? The patient has a suspicious left- sided pulmonary nodule and presented for PET scan earlier today.? Shortly after the scan, patient developed 10/10 left flank pain with associated nausea and vomiting.? On arrival, patient initially hypertensive with blood pressure 177/107 131/73 without intervention.? Develops tachycardia at 108 and on my exam up to 129 with atrial fibrillation rhythm noted on electronic device monitor.? There is no leukocytosis.? Creatinine 1.08, baseline 0.79.? Sodium 140, potassium 5.2, chloride 105, CO2 29.? UA showing 2+ leukocytes, positive nitrites, 3+ blood, 1+ protein, positive urinary sediment, 4+ bacteria.? Patient denies any urinary symptoms including dysuria, hematuria, increased urinary frequency, decreased urinary output, fevers, chills.? CT abdomen/pelvis showing obstructing 5 x 3 mm calculus in the mid left ureter associated with moderate hydroureteronephrosis and prominent perinephric fat stranding.? Additional nonobstructing stone seen in the lower pole of the left kidney.? There is also marked prostatomegaly and emphysema and interstitial edema at the lung bases.? In the ED, patient treated with ketorolac and IV morphine along with 1 L NS and ondansetron.? Case discussed with Dr. Cesia underwood Neurology who will follow patient with probable OR tomorrow afternoon. Hospital Course Admitted to telemetry and started on empiric ceftriaxone. He was seen in consultation by urology and on 08/02/2022 underwent left ureteral stent placement via cystoscopy. He continued to do well in a postoperative period. His Alvarez was removed 24 hours prior to admission without issue. He has been off his Coumadin since admission and will have stent removal 08/08/2022. He has been instructed to stay off his Coumadin until the evening of the procedure when he may restarted. An appointment was made for him at the [facility] at 09:30. His urine culture preliminary is gram-negative rods however discussed with microbiology there is a question of 2 separate organisms so the culture had to be extended. Given his past history of E coli along with renal stones it is likely that the same sensitivities will carry forward. Dr. Walker was notified that he is being sent home on Ceftin and asked to follow up on the culture and sensitivity to ensure correct antibiotic choice. Time Spent with Patient Time attestation: Total time managing care of this patient today ____ minutes. Discharge coordination time: Greater than 30 minutes Quality: Safe Use of Opioids Does Pt have an Active Cancer Diagnosis on the Problem List?: No Quality: Stroke Does the patient have a stroke diagnosis?: No Physical Exam Vital Signs: Vital Signs: Last Vital Signs Temp 97.8 F 08/04/22 12:00 Pulse 87 08/04/22 12:00 Resp 18 08/04/22 12:00 BP 120/74 08/04/22 12:00 Pulse Ox 98 08/04/22 12:00 O2 Del Method 08/04/22 12:00 O2 Flow Rate 2 08/04/22 08:00 Oxygen Flow Rate 2 08/03/22 06:07 BMI result Body Mass Index 21.3 Const: Other: awake alert no acute distress Resp: Other: clear to auscultation bilaterally no rales rhonchi or wheezes Cardio: Other: no S4; positive S1-S2; no S3 murmurs rubs or gallops GI: Other: soft nontender nondistended normoactive bowel sounds Extrem: Other: no edema bilaterally DS: Data Data Completed and Pending Labs on day of discharge: Laboratory Results - last 24 hr 08/03/22 22:29 Lactic Acid 1.2 Preliminary micro results at discharge 08/01/22 22:30 Urine Culture - Preliminary Urine clean catch - Urine zhang top Gram negative janee 08/01/22 22:34 Blood Culture - Preliminary Blood - Venous No growth after 48 hours. 08/01/22 22:34 Blood Culture - Preliminary Blood - Venous No growth after 48 hours. Discharge Plan Discharge Anticipated Discharge Date/Time: 08/04/22 12:02 Patient Disposition: Home, Self-Care Discharge Diagnosis: obstructive uropathy secondary to renal calculi Referrals: Chris Walker MD [Primary Care Provider] - 1 Week Discharge Medications: New cefuroxime axetil 500 mg tablet 500 mg PO BID 7 Days Qty: 14 0RF Continued atorvastatin 40 mg tablet 1 tab PO DAILY propranolol 60 mg capsule,extended release 24 hr 1 cap PO DAILY lorazepam 0.5 mg tablet 1 tab PO BID PRN (Reason: Anxiety) paroxetine HCl 30 mg tablet 1 tab PO DAILY omeprazole 20 mg capsule,delayed release(DR/EC) 1 cap PO DAILY Discontinued warfarin 2.5 mg tablet 1 tab PO DAILY Discharge Orders: Discharge Order (Routine); Ordered 08/04/22 Ordered By: Kavin Marroquin Diet: Advance to usual diet Activity on Discharge: As tolerated Stand Alone Forms: Patient Portal Discharge page Care Plan Goals: you are due to have your stent removed next Sunday08/08/22. do not take you Coumadin until Sunday evening Health Concerns: continue all other meds as taking before hospital Plan of Treatment: complete course of Ceftin (antibiotic ) as prescribed. You have an appointment with the [facility]in [facility] on 08/14/2022 at 09:30 Assessment: see discharge summary
== END 2022-08-04 14:52 | disposition home or self-care (01) | DRG 854 ==
LOC: HO.ED 18:14 → HO.EDOVER 20:36 → HO.ICU 23:55 → HO.IMC 08-02 17:20
PROVIDERS: Internal Medicine; Internal Medicine Pulmonary Disease; Registered Nurse Community Health; Urology; Admitting Provider Physician Assistant; Emergency Provider Emergency Medicine; PCP Internal Medicine Medical Oncology; Visit Provider Hospitalist
PROC: 0T778DZ Dilation of Left Ureter with Intraluminal Device, Via Natural or Artificial Opening Endoscopic (ICD-10-PCS; principal; 2022-08-02 06:30)
DX: A41.9 Sepsis, unspecified organism (principal); N13.6 Pyonephrosis; N17.9 Acute kidney failure, unspecified; N13.8 Other obstructive and reflux uropathy; E78.5 Hyperlipidemia, unspecified; I10 Essential (primary) hypertension; I48.91 Unspecified atrial fibrillation; N40.1 Benign prostatic hyperplasia with lower urinary tract symptoms; R65.20 Severe sepsis without septic shock; F41.9 Anxiety disorder, unspecified; F32.A Depression, unspecified; I48.0 Paroxysmal atrial fibrillation; B96.20 Unspecified Escherichia coli [E. coli] as the cause of diseases classified elsewhere; I95.9 Hypotension, unspecified; Z20.822 Contact with and (suspected) exposure to COVID-19; Z87.440 Personal history of urinary (tract) infections; Z87.891 Personal history of nicotine dependence; Z88.2 Allergy status to sulfonamides; Z88.5 Allergy status to narcotic agent; Z88.6 Allergy status to analgesic agent; Z79.899 Other long term (current) drug therapy
CPT/HCPCS: 36415; 71045; 74176; 80048; 80076; 81001; 82040; 82803; 83605; 83690; 83735; 83880; 84100; 84484; 85025; 85610; 87040; 87070; 87086; 87088; 87186; 87205; 87635; 93005; 99285; J0696; J1885; J2185; J2270; J2370; J2405; P9047; Q9967

== ENCOUNTER 2022-08-08 07:56 | Day surgery (SDC) | payer MEDICARE, SELFPAY ==
--- NOTE | 2022-08-07 12:56 | HO.ANESPROP2 ---
HPI - Anesthesia Eval Consult details Narrative: 77yo M for Left Cystoscopy, Ureteroroscopy, Retro, Laser with stent exchange [facility] admission 08/01-08/04/22 with obstructive uropathy, possible urosepsis s/p cysto, stent 08/02/22 with GA-LMA 5 Coumadin for afib - on hold since [facility] admit [facility] Active Problems Active Problems: All Active Problems (Updated 08/02/22 @ 00:32 by Gómez Montes De Oca NP) Sepsis (Acute) TIMOTHY (acute kidney injury) (Acute) Atrial fibrillation with RVR (Acute) Obstructive uropathy (Acute) UTI (urinary tract infection) (Acute) Ureter, calculus (Acute) Renal colic (Acute) Pneumonia due to COVID-19 virus (Acute) Elevated INR (Acute) COVID-19 (Acute) Atrial fibrillation with RVR (Acute) BPH w urinary obs/LUTS (Acute) COVID-19 (Acute) Weakness (Acute) Lightheadedness (Acute) A-fib (Acute) Prostatitis (Acute) Rib pain on right side (Acute) Osteoarthritis of left knee (Acute) Status post right knee replacement (Acute) Rotator cuff arthropathy of both shoulders (Acute) Bilateral knee pain (Acute) Past Medical History Medical History (Updated 08/09/22 @ 00:01 by Radha Cruz) A-fib Bilateral knee pain BPH w urinary obs/LUTS COVID-19 Current use of anticoagulant therapy Lung nodule Osteoarthritis of left knee Recurrent UTI (urinary tract infection) Rotator cuff arthropathy of both shoulders Family History Family History Mother No problems noted. Father No problems noted. Family history of problems with anesthesia: No Surgical History Surgical History (Updated 08/08/22 @ 09:18 by Lesley Benavides) H/O cystoscopy Status post right knee replacement History of Problems with Anesthesia: No Social History Social History Household Members: None Housing: House Do you presently have visiting nurse or other home services: No Patient Tobacco Use Status: Former Tobacco user Quit Date: 1989 Tobacco use type: Cigarette Years Smoked: 20 Advance Directives Date on File: 02/28/22 service: Yes Current occupational status: retired Current occupation: [employer] - right handed Current occupational exposures/hazards: No Meds Allergies Allergy/AdvReac Type Severity Reaction Status Date / Time indomethacin [From INDOCIN] Allergy Intermediate RASH Verified 08/08/22 08:48 oxycodone [OXYCODONE] Allergy Intermediate VOMITING/RA Verified 08/08/22 08:48 SH Sulfa (Sulfonamide Allergy Intermediate BLISTERS, Verified 08/08/22 08:48 Antibiotics) sore on [SULFA (SULFONAMIDE the end of ANTIBIOTICS)] his penis acetaminophen [Percocet] AdvReac Unknown vomiting Verified 08/08/22 08:48 Home Medications Medication Instructions Recorded Confirmed Last Taken Type atorvastatin 40 mg tablet 1 tab PO DAILY 08/01/22 08/01/22 Unknown History lorazepam 0.5 mg tablet 1 tab PO BID PRN Anxiety 08/01/22 08/01/22 Unknown History omeprazole 20 mg capsule,delayed 1 cap PO DAILY 08/01/22 08/01/22 Unknown History release paroxetine HCl 30 mg tablet 1 tab PO DAILY 08/01/22 08/01/22 Unknown History propranolol 60 mg capsule,24 1 cap PO DAILY 08/01/22 08/01/22 Unknown History hr,extended release warfarin 2.5 mg tablet 1 tab PO DAILY 08/07/22 08/08/22 08/01/22 History Exam Exam Date and Time: August 07, 2022 1256 Narrative Narrative: EKG 07/2022 Vent. Rate : 096 BPM ? ? Atrial Rate : 000 BPM ?? P-R Int : 000 ms? QRS Dur : 108 ms ? ? QT Int : 318 ms ? ? ? P-R-T Axes : 000 100 018 degrees ?? QTc Int : 401 ms ? Atrial fibrillation Incomplete right bundle branch block Right ventricular hypertrophy with repolarization abnormality Abnormal ECG When compared to the previous EKG of same day, no significant changes NM romel perf SPECT rest & str 06/2022 Impression: ? 1.? Myocardial perfusion imaging study shows normal myocardial perfusion 2.? Gated LVEF is greater than 70% 3. Transient ischemic dilatation not present ? EKG is nondiagnostic for ischemia ECHO 02/2022 Conclusions: - 1. Normal LV systolic function with normal filling pressures ? 2. Severely dilated left atrium? 3. Mild mitral regurgitation ? 4. Normal RV systolic pressure ? 5. No gross pericardial effusion ? Assessment and Plan Final Anesthetic Review Family History of Problems with Anesthesia: No History of Problems with Anesthesia: No
[2022-08-08] VITALS (8 sets, daily range): BP systolic 87–157; BP diastolic 49–95; PULSE 68–74; RESP 16–18; TEMP 36.4–36.7; O2SAT 92–97; BMI 21.1
--- NOTE | ~2022-08-08 | FL_ITS ---
EXAMINATION: XR FLUOROSCOPY WITH IMAGES CLINICAL INFORMATION: Urinary tract calculi. Cystoscopy, ureteroscopy, retrocrural, laser COMPARISON: CT abdomen and pelvis noncontrast 08/01/2022 TECHNIQUE: Fluoroscopy Supervised By: Dr. North. Fluoroscopy Time: 33 seconds. Cumulative Dose: 9.26 mGy. Images: 3. FINDINGS: Initial image shows a guidewire in left urinary tract overlying the left renal fossa. Final images demonstrate left ureteral stent in position. FL/FL guidance in OR IMPRESSION: Fluoroscopy for urologic procedures.
[2022-08-08 09:05] LABS: Prothrombin Time 11.9 SEC (10.0-13.1)
--- NOTE | 2022-08-08 09:12 | PC.NURSE ---
Patient states he has filled out DNR paperwork out before. This remains his wish at this time. Paperwork not with patient. Health Care Proxy Nicolle Pedroza [phone]. OR team, Dr. Mercedes, and Dr. North made aware.
[2022-08-08] MEDS: Lactated Ringers 1,000 ML 100 ML IVCONT (09:33)
--- NOTE | 2022-08-08 10:31 | MHC.SHP ---
Pre-Procedural Eval Section A Date of Service: 08/08/22 The patient is an INPATIENT: No The History & Physical has been completed within 30 days and I have reviewed it.: Yes Section B Chief Complaint: Calculus of ureter, s/p left ureteral stent Allergies: Allergies Allergy/AdvReac Type Severity Reaction Status Date / Time indomethacin [From INDOCIN] Allergy Intermediate RASH Verified 08/08/22 08:48 oxycodone [OXYCODONE] Allergy Intermediate VOMITING/RA Verified 08/08/22 08:48 SH Sulfa (Sulfonamide Allergy Intermediate BLISTERS, Verified 08/08/22 08:48 Antibiotics) sore on [SULFA (SULFONAMIDE the end of ANTIBIOTICS)] his penis acetaminophen [Percocet] AdvReac Unknown vomiting Verified 08/08/22 08:48 Plan Diagnosis/Plan: Unchanged I have reviewed the history and physical and performed a pertinent physical examination on my patient. No changes have occurred unless specified. Plan for Cystoscopy, Left ureteroscopy, possible laser lithotripsy, possible ureteral stent exchange vs removal. Risks discussed included but not limited to, possible need to repeat procedure if stone is not completely fragmented, Irritative voiding symptoms, bladder spasms, urgency, blood in urine. Time Spent With Patient Time: Total time managing care of this patient today ____ minutes.
--- NOTE | 2022-08-08 10:43 | PC.NURSE ---
Patient in preop, states I took the big horse pill antibiotic this morning and another blue one. A small blue one. I am not sure the name . This nurse attempted to go over and confirm his current medication list on file and he stated I don't know the names of all my medications . Dr. Mercedes made aware.
--- NOTE | 2022-08-08 11:48 | P.CONAN_ITS ---
[facility] Active Problems Active Problems: All Active Problems (Updated 08/02/22 @ 00:32 by Gómez Montes De Oca NP) Rib pain on right side (Acute) Prostatitis (Acute) Lightheadedness (Acute) COVID-19 (Acute) Weakness (Acute) Atrial fibrillation with RVR (Acute) Pneumonia due to COVID-19 virus (Acute) Elevated INR (Acute) Renal colic (Acute) Ureter, calculus (Acute) UTI (urinary tract infection) (Acute) Obstructive uropathy (Acute) Atrial fibrillation with RVR (Acute) TIMOTHY (acute kidney injury) (Acute) Sepsis (Acute) COVID-19 (Acute) BPH w urinary obs/LUTS (Acute) A-fib (Acute) Osteoarthritis of left knee (Acute) Status post right knee replacement (Acute) Rotator cuff arthropathy of both shoulders (Acute) Bilateral knee pain (Acute) Past Medical History Medical History A-fib Bilateral knee pain BPH w urinary obs/LUTS COVID-19 Current use of anticoagulant therapy Lung nodule Osteoarthritis of left knee Recurrent UTI (urinary tract infection) Rotator cuff arthropathy of both shoulders Family History Family History Mother No problems noted. Father No problems noted. Family history of problems with anesthesia: No Surgical History Surgical History (Updated 08/08/22 @ 09:18 by Lesley Benavides) H/O cystoscopy Status post right knee replacement History of Problems with Anesthesia: Yes (Ponv) Social History Social History Household Members: None Housing: House Do you presently have visiting nurse or other home services: No Patient Tobacco Use Status: Former Tobacco user Quit Date: 1989 Tobacco use type: Cigarette Years Smoked: 20 Smoked in Last 30 Days: No Use of substances other than those prescribed or required for medical reasons: No Are you DNR?: Yes Advance Directives: Yes Advance Directives on File: Yes Advance Directives Date on File: 02/28/22 service: Yes Current occupational status: retired Current occupation: [employer] - right handed Current occupational exposures/hazards: No Meds Allergies Allergy/AdvReac Type Severity Reaction Status Date / Time indomethacin [From INDOCIN] Allergy Intermediate RASH Verified 08/08/22 08:48 oxycodone [OXYCODONE] Allergy Intermediate VOMITING/RA Verified 08/08/22 08:48 SH Sulfa (Sulfonamide Allergy Intermediate BLISTERS, Verified 08/08/22 08:48 Antibiotics) sore on [SULFA (SULFONAMIDE the end of ANTIBIOTICS)] his penis acetaminophen [Percocet] AdvReac Unknown vomiting Verified 08/08/22 08:48 Active Medications: Current Medications Fentanyl (Fentanyl Citrate/Pf 100 Mcg/2 Ml Vial) 25 mcg IVPUSH Q5M PRN; Protocol PRN Reason: Pain, Moderate (Pain Scale 4-6 Lactated Ringer's (Lr) 1,000 mls @ 100 mls/hr IVCONT .Q10H BISI Last Admin: 08/08/22 09:33 Dose: 100 mls/hr Ondansetron HCl (Ondansetron Hcl 4 Mg/2 Ml Vial) 4 mg IVPUSH ONCE PRN PRN Reason: Nausea and Vomiting Home Medications Medication Instructions Recorded Confirmed Last Taken Type atorvastatin 40 mg tablet 1 tab PO DAILY 08/01/22 08/01/22 Unknown History lorazepam 0.5 mg tablet 1 tab PO BID PRN Anxiety 08/01/22 08/01/22 Unknown History omeprazole 20 mg capsule,delayed 1 cap PO DAILY 08/01/22 08/01/22 Unknown History release paroxetine HCl 30 mg tablet 1 tab PO DAILY 08/01/22 08/01/22 Unknown History propranolol 60 mg capsule,24 1 cap PO DAILY 08/01/22 08/01/22 Unknown History hr,extended release warfarin 2.5 mg tablet 1 tab PO DAILY 08/07/22 08/08/22 08/01/22 History Exam Exam Date and Time: August 08, 2022 1148 Height,Weight and Vital Signs: Height 6 ft 1 in Weight 72.575 kg Last Vital Signs Temp 97.5 F 08/08/22 09:08 Pulse 71 08/08/22 09:08 Resp 16 08/08/22 09:08 BP 157/95 H 08/08/22 09:08 Pulse Ox 97 08/08/22 09:08 O2 Del Method 08/08/22 09:08 Pertinent Lab Results Pertinent Lab Results: Laboratory Tests 08/08/22 08:46 PT 11.9 INR 1.0 Airway Mallampati Class: II TM Dist: >3cm Neck ROM: Full Denture: Upper Partial: Lower Heart: rr Lungs: cta Assessment and Plan Final Anesthetic Review Family History of Problems with Anesthesia: No History of Problems with Anesthesia: Yes (Ponv) NPO: Yes ASA Class: II Final Preanesthetic Review: No Changes in Pt Med Stat, Meds/Allgs Chart Reviewed, Consent Obtained/Reviewed, Anes Risks/Benef Reviewed and DNR Form (If Appl.) (Waived for OR) Patient Risk: Low Procedure Risk: Low Anesthetic Plan Anesthetic Plan: GA Disposition: Standard PACU
--- NOTE | 2022-08-08 12:36 | W.PM.OPN ---
Operative Note Operative Note Date of Service: 08/08/22 Narrative: PreOperative Diagnosis:?? left ureteral stone status post left ureteral stent Post Operative Diagnosis:?? left ureteral stone status post left ureteral stent Procedure: - cystoscopy, left ureteroscopy stent exchange, 6 Palestinian by multi length cm Findings: left ureteral stone was not visualized, inflammatory changes noted in the ureter, stent exchange as above Surgeon:?Dr Cheryl North Anesthesia:? General Indications for procedure: The patient is s/p left ureteral stent due to left hydronephrosis secondary to obstructed 5x 3 mm stone and UTI sepsis. Procedure: After informed consent was verified the patient was brought to the operating placed on the OR table in supine position.? General Anesthesia was administered per protocol.? The patient was placed in lithotomy position, prepped and draped in the usual sterile fashion.? Safety pause time-out and side of surgery confirmed.? Antibiotics confirmed. A 22 Palestinian cystoscope was inserted transurethrally, the bulbous urethra was within normal limits. The prostatic urethra noted trilobar enlargement. The bladder was visualized.? Both ureteric orifices were in normal position. The left ureteral stent was curled in the bladder. The? distal end of the ureteral stent was grasped with the flexible grasping forceps. The stent was pulled retrograde through the urethra. A guidewire was passed through the stent. A 2nd guidewire was then passed along side the other guide wire up into the kidney. The cystoscope was removed, leaving both guidewires in place. One guidewire was used as the safety and was attached to the draping. The semi rigid ureteroscope was passed over the second guidewire, there were erythematous, inflammatory changes noted, a stone was not visualized in the ureter, the rigid ureteroscope was removed and a flexible ureteroscope was placed and there was not a stone visualized in the ureter. The flexible ureteroscope was removed. The cystoscope was passed over the safety guidewire. A? 6 Palestinian by multi length cm stent was placed into the ureter and renal pelvis under a combination of fluoroscopy and direct visualization. The bladder was emptied.? The rigid cystoscope was removed. ? The patient tolerated the procedure well and was brought to the recovery room in stable condition. Complications: None Drains: Ureteral stent as dictated above
== END 2022-08-08 14:05 | disposition home or self-care (01) ==
PROVIDERS: Nurse Practitioner; PCP Internal Medicine Medical Oncology; Visit Provider Urology
PROC: (CPT 52351; principal; 2022-08-08 09:50)
DX: N20.1 Calculus of ureter (principal); Z96.0 Presence of urogenital implants; N39.0 Urinary tract infection, site not specified; N40.1 Benign prostatic hyperplasia with lower urinary tract symptoms; R91.1 Solitary pulmonary nodule; I48.0 Paroxysmal atrial fibrillation; Z79.01 Long term (current) use of anticoagulants; Z79.899 Other long term (current) drug therapy; Z88.8 Allergy status to other drugs, medicaments and biological substances; Z86.16 Personal history of COVID-19
CPT/HCPCS: 52351; 52332; 36415; 85610; C1769; C2617; J0690; J1885; J2405; J3010; Q9967

== ENCOUNTER → 2022-08-14 09:33 | Outpatient (BNVA) | payer MEDICARE, SELFPAY | PROVIDERS: PCP Internal Medicine Medical Oncology; Visit Provider Internal Medicine | DX: I48.91 Unspecified atrial fibrillation (principal); Z79.01 Long term (current) use of anticoagulants; Z51.81 Encounter for therapeutic drug level monitoring | CPT/HCPCS: 85610; 99212 ==

== ENCOUNTER 2022-08-15 09:31 | Outpatient (REF) | payer MEDICARE, SELFPAY ==
--- NOTE | ~2022-08-15 | XR_ITS ---
EXAMINATION: XR ABDOMEN KUB CLINICAL INDICATION: Renal calculus. COMPARISON: CT abdomen and pelvis dated 08/01/2022; KUB dated 07/05/2016. TECHNIQUE: 2 AP views of the abdomen and pelvis are submitted. FINDINGS: The bowel gas pattern is normal, with no evidence of ileus or obstruction. No unusual soft tissue calcifications are noted. There is a double pigtail left ureteric stent. There are stable pelvic phleboliths. There are incompletely characterized degenerative changes of the thoracolumbar spine. There are degenerative changes of the hips. XR/XR KUB IMPRESSION: No urinary calculus is seen. There is a double pigtail left ureteric stent.
== END 2022-08-15 09:32 | disposition home or self-care (01) ==
LOC: HO.XRAY 09:31
PROVIDERS: PCP Internal Medicine Medical Oncology; Visit Provider Urology
DX: N20.0 Calculus of kidney (principal)
CPT/HCPCS: 74018

== ENCOUNTER → 2022-08-17 14:46 | Outpatient (BNVA) | payer MEDICARE, SELFPAY | PROVIDERS: PCP Internal Medicine Medical Oncology; Visit Provider Urology | DX: Z48.816 Encounter for surgical aftercare following surgery on the genitourinary system (principal); N40.1 Benign prostatic hyperplasia with lower urinary tract symptoms; N13.8 Other obstructive and reflux uropathy; N20.0 Calculus of kidney; N39.0 Urinary tract infection, site not specified | CPT/HCPCS: 52310; 99212 ==

== ENCOUNTER → 2022-08-18 10:07 | Outpatient (BNVA) | payer MEDICARE, SELFPAY | PROVIDERS: PCP Internal Medicine Medical Oncology; Visit Provider Surgery | DX: R91.1 Solitary pulmonary nodule (principal) | CPT/HCPCS: 99202 ==

== ENCOUNTER → 2022-08-24 10:05 | Outpatient (BNVA) | payer MEDICARE, SELFPAY | PROVIDERS: PCP Internal Medicine Medical Oncology; Visit Provider Internal Medicine | DX: I48.91 Unspecified atrial fibrillation (principal); Z79.01 Long term (current) use of anticoagulants; Z51.81 Encounter for therapeutic drug level monitoring | CPT/HCPCS: 85610; 99211 ==

== ENCOUNTER → 2022-08-29 10:32 | Outpatient (BNVA) | payer MEDICARE, SELFPAY | PROVIDERS: PCP Internal Medicine Medical Oncology; Visit Provider Internal Medicine | DX: I48.91 Unspecified atrial fibrillation (principal); Z79.01 Long term (current) use of anticoagulants; Z51.81 Encounter for therapeutic drug level monitoring | CPT/HCPCS: 85610; 99211 ==

== ENCOUNTER → 2022-09-05 10:45 | Outpatient (BNVA) | payer MEDICARE, SELFPAY | PROVIDERS: PCP Internal Medicine Medical Oncology; Visit Provider Internal Medicine | DX: I48.91 Unspecified atrial fibrillation (principal); Z79.01 Long term (current) use of anticoagulants; Z51.81 Encounter for therapeutic drug level monitoring | CPT/HCPCS: 85610; 99211 ==

== ENCOUNTER 2022-09-07 08:43 | Outpatient (REF) | payer MEDICARE, SELFPAY ==
--- NOTE | ~2022-09-07 | US_ITS ---
EXAMINATION: US RETROPERITONEAL LIMITED (RENAL ONLY) CLINICAL INFORMATION: Calculus of kidney. COMPARISON: X-ray abdomen KUB 09/07/2022 and 08/15/2022. CT abdomen and pelvis without contrast 08/01/2022. Ultrasound retroperitoneal limited (renal only) 03/03/2019 and 12/19/2017. TECHNIQUE: Real-time imaging of the kidneys. FINDINGS: RIGHT KIDNEY: 11.5 x 4.7 x 4.8 cm (SAG x AP x TRV). The kidney is normal in size, contour, and echogenicity. Renal cortical thickness is normal. No focal parenchymal lesions or hydronephrosis. At the upper pole, a 2 mm nonobstructing calculus is seen, with twinkle artifact. LEFT KIDNEY: 11.5 x 5.1 x 6.9 cm (SAG x AP x TRV). The kidney is normal in size, contour, and echogenicity. Renal cortical thickness is normal. No focal parenchymal lesions or hydronephrosis. At the interpolar aspect, a 7 mm nonobstructing calculus is seen, with twinkle artifact. At the lower pole, a 3 mm nonobstructing calculus is seen, with twinkle artifact. US/US renal BI IMPRESSION: Nonobstructing bilateral renal calculi are seen, as detailed. There is no hydronephrosis.
--- NOTE | ~2022-09-07 | XR_ITS ---
EXAMINATION: XR ABDOMEN KUB CLINICAL INDICATION: Renal calculus. COMPARISON: 08/15/[address] scan of 08/01/2022. TECHNIQUE: AP view of the abdomen. FINDINGS: Since previous study a left ureteral stent has been removed. No definite calcifications along the expected path of the left ureter is seen. There are some calcific densities seen about the pelvis, not definitely seen previously which are likely external to the abdomen or within bowel. No evidence of ileus or obstruction. There is a moderate stool burden present within the colon. There is a 4 mm calcification seen within the left abdomen which may represent a left ureteral calculus. Psoas margin is intact. Multilevel degenerative spurring about the lumbar spine is seen as well as disc space narrowing. No evidence of widening or fusion of the sacroiliac joints. XR/XR KUB IMPRESSION: Removal of left ureteral stent with no definite calculus within the expected path of the ureter appreciated. 4 mm calcific density overlying the expected location of the left kidney which may represent nonobstructive calculus.
--- NOTE | ~2022-09-07 | CT_ITS ---
EXAMINATION: CT CHEST WITHOUT CONTRAST CLINICAL INFORMATION: Follow-up pulmonary nodules COMPARISON: Previous chest CT May 2022 and chest CTA February 2022. PET/CT July 2022. Lung windows from abdominal and pelvic CT scan from 2015. TECHNIQUE: Multidetector volumetric CT imaging of the chest was done. Axial MIP volume rendering provided. Sagittal and coronal reformatted images were obtained. This CT examination was performed using dose optimization techniques as appropriate, variously including the following: *Automated exposure control *Adjustment of mA and/or kV according to patient size (this includes techniques or standardized protocols for targeted exams where dose is matched to indication/reason for exam; i.e. extremities or head) *Use of iterative reconstruction technique DLP: 150 mGy-cm FINDINGS: LUNGS: There is evidence of emphysema. The previously identified patchy airspace opacities areas of bronchial wall thickening and mucus plugging on May 2022 exam appears significantly improved. 5 mm calcified left upper lobe nodule, axial image 190 series 7, is stable. Tiny 1 mm left upper lobe nodule, axial image 274 series 7. Now apparent area of focal cystic and reticular change in the superior segment of the right lower lobe measuring approximately 1 cm, axial image 365 series 7. Stable 6 mm peripheral or subpleural right lower lobe nodule, axial image 371 series 7. Stable 6 mm left lower lobe nodule, axial image 471 series 7 from most recent chest CT May 2022 and not definitely identified older chest CTA February 2022. This may be seen axial image 349 series 7, that appears more peripheral or subpleural on February 2022 chest CTA. This is stable from lung windows from previous abdominal and pelvic CT April 2016, axial image 9 series 2. Several peripheral or subpleural right lower lobe nodules adjacent to the diaphragmatic surface measuring 6 and 5 mm, axial image 553 and 571 series 7. Stable 6 mm peripheral or subpleural left lower lobe nodule, axial image 431 series 7. These probably represent subpleural lymph nodes and are stable from lung windows from old abdominal and pelvic CT from 2015. There is increased peripheral attenuation and reticular markings in the medial right lower lobe anterior to the spine, for example, axial image 380 series 7, probably representing dependent atelectasis or scarring. There is residual bronchiectasis and bronchial wall thickening in both lower lobes. MEDIASTINUM: The mediastinum is normal. CORONARY ARTERY CALCIFICATION: None visualized on this study. PLEURA: There is no pleural effusion. No pleural mass or thickening. AXILLA: No lymphadenopathy. UPPER ABDOMEN: Calcifications in the spleen likely related to old granulomatous disease. OSSEOUS STRUCTURES: Degenerative changes of the spine. Multiple bilateral rib fractures. CT/CT chest wo IV con IMPRESSION: Improved infiltrates/airways disease from May 2022 exam. Stable pulmonary nodules. Emphysema. Fleischner guidelines were followed.
--- NOTE | 2022-09-07 13:32 | PFT_ITS ---
Forced vital capacity 99%, FEV1 84%. FEV1/FVC ratio is 62. [id number] 56% and MVV 72%. Post bronchodilator therapy, there is no significant change. Total lung capacity 92%. Residual volume 86%. Diffusion capacity is 43% CONCLUSION: There is evidence of mild obstructive airway disorder. No response to bronchodilator therapy. Diffusion capacity is decreased somewhat out of proportion to the obstructive disorder. This may be due to pulmonary vascular disease or non pulmonary factors. Clinical correlation recommended. The patient should have 6 minutes walk to rule out any exercise induced hypoxemia. Ed Kwon MD MSB/MODL / [id number]
== END 2022-09-07 08:44 | disposition home or self-care (01) ==
LOC: HO.RESP 08:43
PROVIDERS: Absent Provider Urology; Visit Provider Surgery
DX: R91.1 Solitary pulmonary nodule (principal); N20.0 Calculus of kidney
CPT/HCPCS: 71250; 74018; 76775; 94060; 94727; 94729

== ENCOUNTER → 2022-09-12 10:23 | Outpatient (BNVA) | payer MEDICARE, SELFPAY | PROVIDERS: PCP Internal Medicine Medical Oncology; Visit Provider Internal Medicine | DX: I48.91 Unspecified atrial fibrillation (principal); Z79.01 Long term (current) use of anticoagulants; Z51.81 Encounter for therapeutic drug level monitoring | CPT/HCPCS: 85610; 99211 ==

== ENCOUNTER → 2022-09-19 10:41 | Outpatient (BNVA) | payer MEDICARE, SELFPAY | PROVIDERS: PCP Internal Medicine Medical Oncology; Visit Provider Internal Medicine | DX: I48.91 Unspecified atrial fibrillation (principal); Z51.81 Encounter for therapeutic drug level monitoring; Z79.01 Long term (current) use of anticoagulants | CPT/HCPCS: 85610; 99211 ==

== ENCOUNTER → 2022-09-27 10:20 | Outpatient (BNVA) | payer MEDICARE, SELFPAY | PROVIDERS: PCP Internal Medicine Medical Oncology; Visit Provider Internal Medicine | DX: I48.91 Unspecified atrial fibrillation (principal); Z79.01 Long term (current) use of anticoagulants; Z51.81 Encounter for therapeutic drug level monitoring | CPT/HCPCS: 85610; 99211 ==

== ENCOUNTER → 2022-09-28 09:37 | Outpatient (BNVA) | payer MEDICARE, SELFPAY | PROVIDERS: PCP Internal Medicine Medical Oncology; Visit Provider Urology | DX: N40.1 Benign prostatic hyperplasia with lower urinary tract symptoms (principal); N13.8 Other obstructive and reflux uropathy; N39.0 Urinary tract infection, site not specified; N20.0 Calculus of kidney; R97.20 Elevated prostate specific antigen [PSA] | CPT/HCPCS: 99212 ==

== ENCOUNTER → 2022-10-04 10:43 | Outpatient (BNVA) | payer MEDICARE, SELFPAY | PROVIDERS: PCP Internal Medicine Medical Oncology; Visit Provider Internal Medicine | DX: I48.91 Unspecified atrial fibrillation (principal); Z79.01 Long term (current) use of anticoagulants; Z51.81 Encounter for therapeutic drug level monitoring | CPT/HCPCS: 85610; 99211 ==

== ENCOUNTER → 2022-10-13 10:06 | Outpatient (BNVA) | payer MEDICARE, SELFPAY | PROVIDERS: PCP Internal Medicine Medical Oncology; Visit Provider Surgery | DX: R91.1 Solitary pulmonary nodule (principal) | CPT/HCPCS: 99212 ==

== ENCOUNTER → 2022-10-18 10:45 | Outpatient (BNVA) | payer MEDICARE, SELFPAY | PROVIDERS: PCP Internal Medicine Medical Oncology; Visit Provider Internal Medicine | DX: I48.91 Unspecified atrial fibrillation (principal); Z79.01 Long term (current) use of anticoagulants; Z51.81 Encounter for therapeutic drug level monitoring | CPT/HCPCS: 85610; 99211 ==

== ENCOUNTER 2022-10-23 08:57 | Outpatient (REF) | payer MEDICARE, SELFPAY ==
[2022-10-23 09:30] LABS: INTERNATIONAL NORM RATIO 1.2 (0.9-1.1); Prothrombin Time 14.1 SEC (10.0-13.1)
[2022-10-31 22:35] LABS: PSA, Ultra Sensitive 1.81 ng/mL
== END 2022-10-23 08:58 | disposition home or self-care (01) ==
LOC: HO.LAB 08:57
PROVIDERS: PCP Internal Medicine Medical Oncology; Visit Provider Urology
DX: Z12.5 Encounter for screening for malignant neoplasm of prostate (principal); R97.20 Elevated prostate specific antigen [PSA]; Z79.01 Long term (current) use of anticoagulants
CPT/HCPCS: 36415; 84153; 85610

== ENCOUNTER → 2022-11-01 10:21 | Outpatient (BNVA) | payer MEDICARE, SELFPAY | PROVIDERS: PCP Internal Medicine Medical Oncology; Visit Provider Internal Medicine | DX: I48.91 Unspecified atrial fibrillation (principal); Z79.01 Long term (current) use of anticoagulants; Z51.81 Encounter for therapeutic drug level monitoring | CPT/HCPCS: 85610; 99211 ==

== ENCOUNTER → 2022-11-08 13:20 | Outpatient (BNVA) | payer MEDICARE, SELFPAY | PROVIDERS: PCP Internal Medicine Medical Oncology; Visit Provider Internal Medicine | DX: I48.91 Unspecified atrial fibrillation (principal); Z79.01 Long term (current) use of anticoagulants; Z51.81 Encounter for therapeutic drug level monitoring | CPT/HCPCS: 85610; 99211 ==

== ENCOUNTER 2022-11-13 13:16 | Outpatient (REF) | payer MEDICARE, SELFPAY ==
--- NOTE | ~2022-11-13 | US_ITS ---
EXAMINATION: US RETROPERITONEAL LIMITED (RENAL ONLY) CLINICAL INFORMATION: Calculus of kidney. COMPARISON: Renal ultrasound 09/07/2022. TECHNIQUE: Real-time imaging of the kidneys. FINDINGS: RIGHT KIDNEY: 11.7 x 5 x 4.8 cm (SAG x AP x TRV). The kidney is normal in size, contour, and echogenicity. Renal cortical thickness is normal. No focal parenchymal lesions or hydronephrosis. There is a 0.5 cm nonobstructive calculus in the upper pole. LEFT KIDNEY: 13 x 4.7 x 4.6 cm (SAG x AP x TRV). The kidney is normal in size, contour, and echogenicity. Renal cortical thickness is normal. No focal parenchymal lesions or hydronephrosis. There is a 0.8 cm nonobstructive calculus in the interpolar region as well as a 0.4 cm nonobstructive calculus in the lower pole. US/US renal BI IMPRESSION: Nonobstructive bilateral renal calculi.
== END 2022-11-13 13:17 | disposition home or self-care (01) ==
LOC: HO.US 13:16
PROVIDERS: PCP Internal Medicine Medical Oncology; Visit Provider Urology
DX: N20.0 Calculus of kidney (principal)
CPT/HCPCS: 76775

== ENCOUNTER → 2022-11-20 09:34 | Outpatient (BNVA) | payer MEDICARE, SELFPAY | PROVIDERS: PCP Internal Medicine Medical Oncology; Visit Provider Urology | DX: N40.1 Benign prostatic hyperplasia with lower urinary tract symptoms (principal); N13.8 Other obstructive and reflux uropathy; N20.0 Calculus of kidney; R97.20 Elevated prostate specific antigen [PSA] | CPT/HCPCS: Q3014 ==

== ENCOUNTER → 2022-11-22 13:41 | Outpatient (BNVA) | payer MEDICARE, SELFPAY | PROVIDERS: PCP Internal Medicine Medical Oncology; Visit Provider Internal Medicine | DX: I48.91 Unspecified atrial fibrillation (principal); Z79.01 Long term (current) use of anticoagulants; Z51.81 Encounter for therapeutic drug level monitoring | CPT/HCPCS: 85610; 99211 ==

== ENCOUNTER → 2022-12-06 10:40 | Outpatient (BNVA) | payer MEDICARE, SELFPAY | PROVIDERS: PCP Internal Medicine Medical Oncology; Visit Provider Internal Medicine | DX: I48.91 Unspecified atrial fibrillation (principal); Z79.01 Long term (current) use of anticoagulants; Z51.81 Encounter for therapeutic drug level monitoring | CPT/HCPCS: 85610; 99211 ==

== ENCOUNTER 2022-12-11 08:44 | Outpatient (REF) | payer MEDICARE, SELFPAY | END 2022-12-11 08:45 | disposition home or self-care (01) | LOC: HO.LAB 08:44 | PROVIDERS: PCP Internal Medicine Medical Oncology; Visit Provider Urology | DX: N40.1 Benign prostatic hyperplasia with lower urinary tract symptoms (principal); N13.8 Other obstructive and reflux uropathy; Z79.01 Long term (current) use of anticoagulants | CPT/HCPCS: 36415; 85610; 85730 ==

== ENCOUNTER 2022-12-13 08:55 | Day surgery (SDC) | payer MEDICARE, SELFPAY ==
--- NOTE | 2022-12-11 09:33 | HO.ANESPROP2 ---
HPI - Anesthesia Eval Consult details Narrative: 77yo M for Left ESWL s/p cysto, etc 07/2022 with [facility]-LMA 4 [facility] [place] admission 08/01-08/04/22 with obstructive uropathy, possible urosepsis s/p cysto, stent 08/02/22 with GA-LMA 5 Coumadin for afib PMFSH Active Problems Active Problems: All Active Problems (Updated 10/23/22 @ 09:29 by Kadie Neal RN) Prostatitis (Acute) Lightheadedness (Acute) Weakness (Acute) Kidney stone on left side (Acute) Bilateral kidney stones (Acute) Elevated PSA (Acute) Lung nodule (Acute) CAD (coronary artery disease) (Acute) A-fib (Acute ~02/2022) Current use of anticoagulant therapy (Acute) BPH w urinary obs/LUTS (Acute) Past Medical History Medical History A-fib (~02/2022) Anxiety BPH w urinary obs/LUTS CAD (coronary artery disease) Cardiac ischemia Current use of anticoagulant therapy Depression GERD (gastroesophageal reflux disease) History of COVID-19 Hyperlipidemia Hypertension Left rib fracture Lung nodule Mild mitral valve regurgitation Osteoarthritis of left knee Recurrent UTI (urinary tract infection) Right rib fracture Rotator cuff tear arthropathy of both shoulders Tubular adenoma Family History Family History Mother No problems noted. Father No problems noted. Family history of problems with anesthesia: No Surgical History Surgical History History of appendectomy History of cardiac cath History of colonoscopy History of cystoscopy History of lithotripsy History of prostate surgery History of suprapubic catheter History of total right knee replacement History of Problems with Anesthesia: Yes (Ponv) Social History Social History Household Members: None Housing: House Do you presently have visiting nurse or other home services: No Patient Tobacco Use Status: Former Tobacco user Quit Date: 1989 Tobacco use type: Cigarette Years Smoked: 20 Advance Directives Date on File: 02/28/22 service: Yes Current occupational status: retired Current occupation: [employer] - right handed Current occupational exposures/hazards: No Meds Allergies Allergy/AdvReac Type Severity Reaction Status Date / Time indomethacin [From INDOCIN] Allergy Intermediate RASH Verified 12/06/22 10:54 oxycodone [OXYCODONE] Allergy Intermediate VOMITING/RA Verified 12/06/22 10:54 SH Sulfa (Sulfonamide Allergy Intermediate BLISTERS, Verified 12/06/22 10:54 Antibiotics) sore on [SULFA (SULFONAMIDE the end of ANTIBIOTICS)] his penis acetaminophen [Percocet] AdvReac Unknown vomiting Verified 12/06/22 10:54 Home Medications Medication Instructions Recorded Confirmed Last Taken Type atorvastatin 40 mg tablet 1 tab PO DAILY 08/01/22 10/23/22 Unknown History omeprazole 20 mg capsule,delayed 1 cap PO DAILY 08/01/22 10/23/22 Unknown History release propranolol 60 mg capsule,24 1 cap PO DAILY 08/01/22 10/23/22 Unknown History hr,extended release warfarin 2.5 mg tablet 1 tab PO DAILY 08/07/22 12/06/22 08/01/22 History cholecalciferol (vitamin D3) 25 25 mcg PO DAILY 08/17/22 10/23/22 Unknown History mcg (1,000 unit) tablet acetaminophen 650 mg 650 mg PO DAILY 09/05/22 10/23/22 Unknown History tablet,extended release paroxetine HCl 40 mg tablet 40 mg PO DAILY 10/18/22 10/23/22 Unknown History Exam Exam Date and Time: December 11, 2022 0933 Pertinent Lab Results Pertinent Lab Results: Laboratory Tests 08/03/22 08/03/22 07:08 07:08 WBC 8.6 Hgb 9.1 L Hct 29.3 L Plt Count 165 Sodium 140 Potassium 4.2 Chloride 110 H Carbon Dioxide 25 BUN 19 H Creatinine 0.75 Narrative Narrative: EKG 07/2022 Vent. Rate : 096 BPM ? ? Atrial Rate : 000 BPM ?? P-R Int : 000 ms? QRS Dur : 108 ms ? ? QT Int : 318 ms ? ? ? P-R-T Axes : 000 100 018 degrees ?? QTc Int : 401 ms ? Atrial fibrillation Incomplete right bundle branch block Right ventricular hypertrophy with repolarization abnormality Abnormal ECG When compared to the previous EKG of same day, no significant changes NM romel perf SPECT rest & str 06/2022 Impression: ? 1.? Myocardial perfusion imaging study shows normal myocardial perfusion 2.? Gated LVEF is greater than 70% 3. Transient ischemic dilatation not present ? EKG is nondiagnostic for ischemia ECHO 02/2022 Conclusions: - 1. Normal LV systolic function with normal filling pressures ? 2. Severely dilated left atrium? 3. Mild mitral regurgitation ? 4. Normal RV systolic pressure ? 5. No gross pericardial effusion ? Assessment and Plan Assessment Anesthesia Assessment: Chart Reviewed Final Anesthetic Review Family History of Problems with Anesthesia: No History of Problems with Anesthesia: Yes (Ponv)
[2022-12-13] VITALS (7 sets, daily range): BP systolic 115–133; BP diastolic 61–82; PULSE 72–84; RESP 15–18; TEMP 36.6; O2SAT 95–96; BMI 21.6
--- NOTE | 2022-12-13 10:45 | HO.ANESPROP2 ---
[facility] Active Problems Active Problems: All Active Problems (Updated 10/23/22 @ 09:29 by Kadie Neal RN) Prostatitis (Acute) Lightheadedness (Acute) Weakness (Acute) Kidney stone on left side (Acute) Bilateral kidney stones (Acute) Elevated PSA (Acute) Lung nodule (Acute) CAD (coronary artery disease) (Acute) A-fib (Acute ~02/2022) Current use of anticoagulant therapy (Acute) BPH w urinary obs/LUTS (Acute) Past Medical History Medical History A-fib (~02/2022) Anxiety BPH w urinary obs/LUTS CAD (coronary artery disease) Cardiac ischemia Current use of anticoagulant therapy Depression GERD (gastroesophageal reflux disease) History of COVID-19 Hyperlipidemia Hypertension Left rib fracture Lung nodule Mild mitral valve regurgitation Osteoarthritis of left knee Recurrent UTI (urinary tract infection) Right rib fracture Rotator cuff tear arthropathy of both shoulders Tubular adenoma Family History Family History Mother No problems noted. Father No problems noted. Family history of problems with anesthesia: No Surgical History Surgical History History of appendectomy History of cardiac cath History of colonoscopy History of cystoscopy History of lithotripsy History of prostate surgery History of suprapubic catheter History of total right knee replacement History of Problems with Anesthesia: Yes (Ponv) Social History Social History Household Members: None Housing: House Do you presently have visiting nurse or other home services: No Patient Tobacco Use Status: Former Tobacco user Quit Date: 1989 Tobacco use type: Cigarette Years Smoked: 20 Use of substances other than those prescribed or required for medical reasons: No Are you DNR?: No Advance Directives: No Advance Directives Information Provided: Yes Advance Directives Date on File: 02/28/22 service: Yes Current occupational status: retired Current occupation: [employer] - right handed Current occupational exposures/hazards: No Meds Allergies Allergy/AdvReac Type Severity Reaction Status Date / Time indomethacin [From INDOCIN] Allergy Intermediate RASH Verified 12/06/22 10:54 oxycodone [OXYCODONE] Allergy Intermediate VOMITING/RA Verified 12/06/22 10:54 SH Sulfa (Sulfonamide Allergy Intermediate BLISTERS, Verified 12/06/22 10:54 Antibiotics) sore on [SULFA (SULFONAMIDE the end of ANTIBIOTICS)] his penis acetaminophen [Percocet] AdvReac Unknown vomiting Verified 12/06/22 10:54 Active Medications: Current Medications Fentanyl (Fentanyl Citrate/Pf 100 Mcg/2 Ml Vial) 25 mcg IVPUSH Q5M PRN; Protocol PRN Reason: Pain, Moderate(Pain Scale 4-6) Lactated Ringer's (Lr) 1,000 mls @ 50 mls/hr IVCONT .Q20H BISI Ondansetron HCl (Ondansetron Hcl 4 Mg/2 Ml Vial) 4 mg IVPUSH ONCE PRN PRN Reason: Nausea and Vomiting Oxycodone HCl (Oxycodone Hcl Immed Release 5 Mg Tablet) 5 mg PO ONCE PRN PRN Reason: Pain, Severe (Pain Scale 7-10) Home Medications Medication Instructions Recorded Confirmed Last Taken Type atorvastatin 40 mg tablet 1 tab PO DAILY 08/01/22 12/13/22 Unknown History omeprazole 20 mg capsule,delayed 1 cap PO DAILY 08/01/22 12/13/22 Unknown History release propranolol 60 mg capsule,24 1 cap PO DAILY 08/01/22 12/13/22 Unknown History hr,extended release warfarin 2.5 mg tablet 1 tab PO DAILY 08/07/22 12/13/22 12/06/22 History cholecalciferol (vitamin D3) 25 25 mcg PO DAILY 08/17/22 12/13/22 Unknown History mcg (1,000 unit) tablet acetaminophen 650 mg 650 mg PO DAILY 09/05/22 12/13/22 Unknown History tablet,extended release paroxetine HCl 40 mg tablet 40 mg PO DAILY 10/18/22 12/13/22 Unknown History Exam Exam Date and Time: December 13, 2022 104 Height,Weight and Vital Signs: Height 6 ft 1 in Weight 74.389 kg Last Vital Signs Temp 97.9 F 12/13/22 09:34 Pulse 84 12/13/22 09:34 Resp 18 12/13/22 09:34 BP 133/82 12/13/22 09:34 Pulse Ox 95 07/05/23 09:34 O2 Del Method Room Air 12/13/22 09:34 Pertinent Lab Results Pertinent Lab Results: Laboratory Tests 12/13/22 12/13/22 09:29 09:30 PT 10.7 INR 0.9 POC Glucose 103 Airway Mallampati Class: II TM Dist: >3cm Neck ROM: Full Denture: Upper Partial: Lower Loose/Missing/Broken Teeth: Yes, Upper and Lower Heart: irrr Lungs: clear Assessment and Plan Final Anesthetic Review Family History of Problems with Anesthesia: No History of Problems with Anesthesia: Yes (Ponv) NPO: Yes ASA Class: V Final Preanesthetic Review: No Changes in Pt Med Stat, Meds/Allgs Chart Reviewed and Consent Obtained/Reviewed Patient Risk: High Procedure Risk: Low Anesthetic Plan Anesthetic Plan: GA Disposition: Standard PACU
--- NOTE | 2022-12-13 10:57 | MHC.SHP ---
Pre-Procedural Eval Section A Date of Service: 12/13/22 The patient is an INPATIENT: No The History & Physical has been completed within 30 days and I have reviewed it.: Yes Section B Chief Complaint: Calculus of kidney Allergies: Allergies Allergy/AdvReac Type Severity Reaction Status Date / Time indomethacin [From INDOCIN] Allergy Intermediate RASH Verified 12/06/22 10:54 oxycodone [OXYCODONE] Allergy Intermediate VOMITING/RA Verified 12/06/22 10:54 SH Sulfa (Sulfonamide Allergy Intermediate BLISTERS, Verified 12/06/22 10:54 Antibiotics) sore on [SULFA (SULFONAMIDE the end of ANTIBIOTICS)] his penis acetaminophen [Percocet] AdvReac Unknown vomiting Verified 12/06/22 10:54 Plan Diagnosis/Plan: Unchanged I have reviewed the history and physical and performed a pertinent physical examination on my patient. No changes have occurred unless specified. Left ESWL. Discussed risks to include but not limited to, blood in the urine, bruising to the skin, kidney hematoma, possible need for another procedure if a stone fragment obstructs the ureter while passing, possible need to repeat procedure if stone is not completely fragmented. Time Spent With Patient Time: Total time managing care of this patient today ____ minutes.
--- NOTE | 2022-12-13 11:37 | W.PM.OPN ---
Operative Note Operative Note Date of Service: 12/13/22 Narrative: PreOperative Diagnosis:? ? Left Renal stone Post Operative Diagnosis:?Left? Renal stone Procedure:?Left? ESWL Surgeon:?Dr Cheryl North Anesthesia:? General Indications for procedure: The patient understands ESWL may be a staged procedure and subsequent intervention may be required based on imaging after ESWL.? They also understand? there is a risk of bleeding to the kidney, infection, damage to adjacent organs, and stone migration following the procedure. - Imaging 8 mm left lower pole stone Procedure: After informed consent was verified the patient was brought to the operating room and placed in a supine position.? Anesthesia was performed per protocol. Safety pause time-out was performed. Imaging was displayed in the room and laterality confirmed. ESWL was performed.?The stone was visualized on ultrasound.? Shockwave lithotripsy was performed, after the first 300 shocks a pause for 3 minutes.? A total of 2500 shocks to a maximum of power of 18 with a maximum rate of 120 hertz.? Some fragmentation of the stone was appreciated. The patient tolerated the procedure well and was transferred to the recovery area upon completion. Complications: None
== END 2022-12-13 12:48 | disposition home or self-care (01) ==
PROVIDERS: PCP Internal Medicine Medical Oncology; Visit Provider Urology
PROC: (CPT 50590; principal; 2022-12-13 10:00)
DX: N20.0 Calculus of kidney (principal); Z87.442 Personal history of urinary calculi; N40.1 Benign prostatic hyperplasia with lower urinary tract symptoms; N13.8 Other obstructive and reflux uropathy; N39.0 Urinary tract infection, site not specified; R97.20 Elevated prostate specific antigen [PSA]; I48.91 Unspecified atrial fibrillation; I10 Essential (primary) hypertension; I25.10 Atherosclerotic heart disease of native coronary artery without angina pectoris; Z79.01 Long term (current) use of anticoagulants; Z79.899 Other long term (current) drug therapy; Z88.2 Allergy status to sulfonamides; Z88.8 Allergy status to other drugs, medicaments and biological substances; Z87.891 Personal history of nicotine dependence
CPT/HCPCS: 50590; 36415; 74018; 82947; 85610; J0690; J1100; J2405; J3010

== ENCOUNTER 2022-12-20 10:15 | Outpatient (AMB) | payer MEDICARE, SELFPAY ==
--- NOTE | 2022-12-20 10:19 | MHC.OFFVISCO ---
Intake Intake Visit Reasons: Anticoagulation Allergies indomethacin [From INDOCIN] Allergy (Intermediate, Verified 12/20/22 10:15) RASH oxycodone [OXYCODONE] Allergy (Intermediate, Verified 12/20/22 10:15) VOMITING/RASH Sulfa (Sulfonamide Antibiotics) [SULFA (SULFONAMIDE ANTIBIOTICS)] Allergy (Intermediate, Verified 12/20/22 10:15) BLISTERS, sore on the end of his penis acetaminophen [Percocet] Adverse Reaction (Unknown, Verified 12/20/22 10:15) vomiting Medication List - Last Reconciled 12/20/22 by Isela Lozano RN acetaminophen ER 650 mg PO DAILY atorvastatin 1 tab PO DAILY cholecalciferol (vitamin D3) 25 mcg PO DAILY omeprazole 1 cap PO DAILY paroxetine HCl 40 mg PO DAILY propranolol ER 1 cap PO DAILY pyridoxine (vitamin B6) 100 mg PO DAILY warfarin 1 tab See Protocol PO DAILY Nursing Note INR 1.1-?? out of therapeutic range Medications and supplements reviewed Patient status: pt s/p lithrotripsy on 12/13/22- pt held warfarin for 10 days, no lovenox Medications or supplements: no changes Diet: appetite good Denies any signs and symptoms of bleeding or clotting or unusual bruising Bleeding, bruising, clotting discussed - denies hematuria Nutritional guidance given: avoid greens , eat reds to raise inr Dose: 5mg today, 5mg tomm then cont reg 2.5mg x 6, 5mg x 1 pt reluctant to boost warfarin due to history of nose bleeds- F/U INR Date : sunday12/25/22? Patient verbalizing understanding of instructions given. pcp dr monge's office called with low inr/dosing and f/u appt- spoke to ernesto at 1030- she is aware pt had procedure with 10 day hold of warfarin Anti-Coag Initial Assessment Social Hx Patient Tobacco Use Status: Former Tobacco user Quit Date: 1989 Tobacco use type: Cigarette Alcohol intake frequency: former alcohol drinker Cardiovascular Hx: HTN, Arrhythmias and Varicose Veins Musculoskeletal Hx: Arthritis GI Hx: Other (GERD) Neurological Hx: Epilepsy/Seizures Cancer HX: No Psych. Illness/Depression: Yes (DEPRESSION) Coding Level of Care Code Est Patient Level 2 Diagnoses Current use of anticoagulant therapy Z79.01 Assessment & Plan Assessment & Plan (1) Current use of anticoagulant therapy: Code(s): Z79.01 - [facility] (current) use of anticoagulants Category: Medical
[2022-12-20 10:20] LABS: Prothrombin Time Whole Bld POC 13.1 sec (11.1-13.5); ~PT, ~INR - Anti Coag Clinic 1.1 (0.9-1.1)
== END 2022-12-20 10:35 | disposition home or self-care (01) ==
LOC: HO.ACS 10:15
PROVIDERS: PCP Internal Medicine Medical Oncology; Visit Provider Internal Medicine
DX: Z79.01 Long term (current) use of anticoagulants (principal)

== ENCOUNTER → 2022-12-20 10:15 | Outpatient (BNVA) | payer MEDICARE, SELFPAY | PROVIDERS: PCP Internal Medicine Medical Oncology; Visit Provider Internal Medicine | DX: I48.91 Unspecified atrial fibrillation (principal); Z79.01 Long term (current) use of anticoagulants; Z51.81 Encounter for therapeutic drug level monitoring | CPT/HCPCS: 85610; 99212 ==

== ENCOUNTER 2022-12-25 09:19 | Outpatient (AMB) | payer MEDICARE, SELFPAY ==
--- NOTE | 2022-12-25 09:33 | MHC.OFFVISCO ---
Intake Intake Visit Reasons: Anticoagulation Allergies indomethacin [From INDOCIN] Allergy (Intermediate, Verified 12/25/22 09:30) RASH oxycodone [OXYCODONE] Allergy (Intermediate, Verified 12/25/22 09:30) VOMITING/RASH Sulfa (Sulfonamide Antibiotics) [SULFA (SULFONAMIDE ANTIBIOTICS)] Allergy (Intermediate, Verified 12/25/22 09:30) BLISTERS, sore on the end of his penis acetaminophen [Percocet] Adverse Reaction (Unknown, Verified 12/25/22 09:30) vomiting Medication List - Last Reconciled 12/25/22 by Isela Lozano, RN acetaminophen ER 650 mg PO DAILY atorvastatin 1 tab PO DAILY cholecalciferol (vitamin D3) 25 mcg PO DAILY omeprazole 1 cap PO DAILY paroxetine HCl 40 mg PO DAILY propranolol ER 1 cap PO DAILY pyridoxine (vitamin B6) 100 mg PO DAILY warfarin 1 tab See Protocol PO DAILY Nursing Note INR 1.7-? out of therapeutic range Medications and supplements reviewed Patient status: pt s/p lithotripsy with 10 day hold Medications or supplements: no changes Diet: same Denies any signs and symptoms of bleeding or clotting or unusual bruising Bleeding, bruising, clotting discussed Nutritional guidance given: no greens for 2 days, eat a red today Dose: 5mg today then cont 2.5mg x 6, 5mg x 1 F/U INR Date : 1 week? Patient verbalizing understanding of instructions given. Anti-Coag Initial Assessment Social Hx Patient Tobacco Use Status: Former Tobacco user Quit Date: 1989 Tobacco use type: Cigarette Alcohol intake frequency: former alcohol drinker Cardiovascular Hx: HTN, Arrhythmias and Varicose Veins Musculoskeletal Hx: Arthritis GI Hx: Other (GERD) Neurological Hx: Epilepsy/Seizures Cancer HX: No Psych. Illness/Depression: Yes (DEPRESSION) Coding Level of Care Code Est Patient Level 1 Diagnoses Current use of anticoagulant therapy Z79.01 Assessment & Plan Assessment & Plan (1) Current use of anticoagulant therapy: Code(s): Z79.01 - long-term (current) use of anticoagulants Category: Medical
[2022-12-25 09:35] LABS: Prothrombin Time Whole Bld POC 20.4 sec (11.1-13.5); ~PT, ~INR - Anti Coag Clinic 1.7 (0.9-1.1)
== END 2022-12-25 09:53 | disposition home or self-care (01) ==
LOC: HO.ACS 09:19
PROVIDERS: PCP Internal Medicine Medical Oncology; Visit Provider Internal Medicine
DX: Z79.01 Long term (current) use of anticoagulants (principal)

== ENCOUNTER → 2022-12-25 09:19 | Outpatient (BNVA) | payer MEDICARE, SELFPAY | PROVIDERS: PCP Internal Medicine Medical Oncology; Visit Provider Internal Medicine | DX: I48.91 Unspecified atrial fibrillation (principal); Z79.01 Long term (current) use of anticoagulants; Z51.81 Encounter for therapeutic drug level monitoring | CPT/HCPCS: 85610; 99211 ==

== ENCOUNTER 2022-12-29 13:06 | Outpatient (AMB) | payer MEDICARE, SELFPAY ==
--- NOTE | 2022-12-29 06:48 | A.OFFVIS_ITS ---
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 Officer Required: No Accompanied by: Self / Same As Patient Allergies indomethacin [From INDOCIN] Allergy (Intermediate, Verified 02/27/23 09:03) RASH oxycodone [OXYCODONE] Allergy (Intermediate, Verified 02/27/23 09:03) VOMITING/RASH Sulfa (Sulfonamide Antibiotics) [SULFA (SULFONAMIDE ANTIBIOTICS)] Allergy (Intermediate, Verified 02/27/23 09:03) BLISTERS, sore on the end of his penis acetaminophen [Percocet] Adverse Reaction (Unknown, Verified 02/27/23 09:03) vomiting Medication List - Last Reconciled 12/29/22 by Cheryl North MD acetaminophen ER 650 mg PO DAILY atorvastatin 1 tab PO DAILY cholecalciferol (vitamin D3) 25 mcg PO DAILY omeprazole 1 cap PO DAILY paroxetine HCl 40 mg PO DAILY propranolol ER 1 cap PO DAILY pyridoxine (vitamin B6) 100 mg PO DAILY tamsulosin (Flomax) 0.4 mg PO BEDTIME warfarin 1 tab See Protocol PO DAILY HPI HPI Comments History of Present Illness Details Reji is a 77-year-old male who is here to follow-up for kidney stones. 12/29/2022--- Reji is a 77-year-old male who presents via tele-health today for a follow up of kidney stones. His last office visit was on .? He is status post left ESWL on 12/13/2022. He underwent shock wave lithotripsy in the lower pole of the left kidney. He reports flank pain. He states that the pain is severe sometimes secondary to moving to the right side. He states that he is consuming adequate amount of water. He denies any hematuria. PSA results reviewed?10/23/2022?1.81. Last visit-- 11/20/2022-- Has a history of kidney stones. Initially the patient was evaluated in the hospital and was admitted in the hospital on 08/02/22 due to UTI and obstructing left ureteral stone. He status post left ESWL urteroscopy stent exchange on 07/19/22 initial had left ureteral stent on 08/02/22 and on 08/08 22 stent exchange was done at that time ureteral stone was not visualized, it was thought to have passed. I have also discussed diet modification and discussed daily vitamin B6 100 mg. He is also evaluated for elevated PSA which went up from 1.75 to 4.21. Review of chart:? 24 hour urine results-- collected on 08/31/22: Total volume 1.68 L, Calcium 276 mg; Oxalate 25 mg, Sodium 75, Citrate 503 mg.? Instructed on importance of fluid intake, Low oxalate diet, low sodium diet. PSA results reviewed--07/17/2022-- 4.21, 02/22/22-- 1.75. Recently Left ESWL was scheduled which was cancelled because the patient did not did not have a ride to the hospital. I have reviewed renal US results with the patient which notes B/L renal stones, however I have brought to his attention that previous CTKUB only noted Left nep hrolithiasis.? He Denies flank pain. Renal US results reviewed--11/13/22--Nonobstructive bilateral renal calculi. CT KUB results 08/01/22--5 x 3 mm calculus in the mid LEFT ureter associated with moderate upstream hydroureteronephrosis and prominent perinephric fat stranding.? ?Nonobstructive stone or cluster of tiny adjacent stones within a dependent calyx, lower pole left kidney. Plan: Left ESWL discussed to be rescheduled. Instructed to stop Coumadin 5 days before the procedure.? ? 12/29/22 Plan: Prescribed Tamsulosin 0.4mg.? Fu in the office in 10 months. [facility] Medical History A-fib (~02/2022) Anxiety BPH w urinary obs/LUTS CAD (coronary artery disease) Cardiac ischemia Current use of anticoagulant therapy Depression GERD (gastroesophageal reflux disease) History of COVID-19 Hyperlipidemia Hypertension Left rib fracture Lung nodule Mild mitral valve regurgitation Osteoarthritis of left knee Recurrent UTI (urinary tract infection) Right rib fracture Rotator cuff tear arthropathy of both shoulders Tubular adenoma Surgical History History of appendectomy History of cardiac cath History of colonoscopy History of cystoscopy History of lithotripsy History of prostate surgery History of suprapubic catheter History of total right knee replacement Family History Mother No problems noted. Father No problems noted. Social History Household Members: None Housing: House Do you presently have visiting nurse or other home services: No Patient Tobacco Use Status: Former Tobacco user Quit Date: 1989 Tobacco use type: Cigarette Years Smoked: 20 Advance Directives Date on File: 02/28/22 service: Yes Current occupational status: retired Current occupation: [employer] - right handed Current occupational exposures/hazards: No Review of Systems Const All systems reviewed & are unremarkable except as noted in HPI and below Reports no additional complaints Eyes Reports no additional complaints ENT Denies neck pain Card Denies leg edema Resp Denies cough GI Denies constipation Musc Reports no additional complaints and Denies neck pain Skin/Breast Denies rash and Denies unusual bruising Neuro Reports no additional complaints Psych Reports no additional complaints Endo Reports no additional complaints Sandeep/Lymph Reports no additional complaints Aller/Immun Reports no additional complaints Assessment & Plan Assessment & Plan (1) BPH w urinary obs/LUTS: Code(s): N40.1 - Benign prostatic hyperplasia with lower urinary tract symptoms; N13.8 - Other obstructive and reflux uropathy (2) Elevated PSA: Code(s): R97.20 - Elevated prostate specific antigen [PSA] (3) Bilateral kidney stones: Code(s): N20.0 - Calculus of kidney Plan Prescribed Tamsulosin 0.4mg.? Fu in the office in 10 months prior to renal US. Orders: Orders US renal BI 12/29/22 N20.0 - Calculus of kidney, R10.9 - Unspecified abdominal pain Medications: New tamsulosin (Flomax) 0.4 mg PO BEDTIME 30 caps 0RF tamsulosin (Flomax) 0.4 mg PO BEDTIME 30 caps 0RF Patient Instructions: The patient had an opportunity to ask questions regarding treatment plan. All questions were answered. Imaging, Laboratory studies and physical exam results were discussed and reviewed in detail. No major barriers to understanding were identified. The patient expressed understanding and agreement with the above treatment plan. The patient is aware they should contact our office by phone for worsening of their current condition or the appearance of new symptoms. Compliance is encouraged with any medications and followup testing that is ordered. It is a privilege to be allowed the opportunity to participate in the urologic care of your patient. If you have any questions or concerns regarding treatment for the above conditions please do not hesitate to contact me. The office telephone contact is [phone]. This note is constructed in part using voice recognition software. 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 Yours sincerely, Cheryl North MD Telehealth Telehealth Location of provider rendering services: practice address Location of patient: address on file Patient Identification confirmed using: Name, : Yes Telehealth method: voice only Patient verbally consented to treatment: Yes Patient verbally consented to billing insurance company: Yes Patient informed of any privacy concerns related to visit: Yes Minutes spent on Phone/Video with Pt.: 15 Coding Level of Care Code Global (64792) Diagnoses BPH w urinary obs/LUTS N40.1; N13.8 Elevated PSA R97.20 Bilateral kidney stones N20.0
== END 2022-12-29 14:39 | disposition home or self-care (01) ==
LOC: HO.HUSH 13:06
PROVIDERS: PCP Internal Medicine Medical Oncology; Visit Provider Urology
DX: N40.1 Benign prostatic hyperplasia with lower urinary tract symptoms (principal); N13.8 Other obstructive and reflux uropathy; R97.20 Elevated prostate specific antigen [PSA]; N20.0 Calculus of kidney
CPT/HCPCS: 99024

== ENCOUNTER → 2022-12-29 13:06 | Outpatient (BNVA) | payer MEDICARE, SELFPAY | PROVIDERS: PCP Internal Medicine Medical Oncology; Visit Provider Urology ==

== ENCOUNTER 2023-01-01 09:24 | Outpatient (AMB) | payer MEDICARE, SELFPAY ==
[2023-01-01 09:38] LABS: Prothrombin Time Whole Bld POC 29.4 sec (11.1-13.5); ~PT, ~INR - Anti Coag Clinic 2.4 (0.9-1.1)
--- NOTE | 2023-01-01 09:42 | MHC.OFFVISCO ---
Intake Intake Visit Reasons: Anticoagulation Allergies indomethacin [From INDOCIN] Allergy (Intermediate, Verified 01/01/23 09:33) RASH oxycodone [OXYCODONE] Allergy (Intermediate, Verified 01/01/23 09:33) VOMITING/RASH Sulfa (Sulfonamide Antibiotics) [SULFA (SULFONAMIDE ANTIBIOTICS)] Allergy (Intermediate, Verified 01/01/23 09:33) BLISTERS, sore on the end of his penis acetaminophen [Percocet] Adverse Reaction (Unknown, Verified 01/01/23 09:33) vomiting Medication List - Last Reconciled 01/01/23 by Dena Wetzel RN acetaminophen ER 650 mg PO DAILY atorvastatin 1 tab PO DAILY cholecalciferol (vitamin D3) 25 mcg PO DAILY omeprazole 1 cap PO DAILY paroxetine HCl 40 mg PO DAILY propranolol ER 1 cap PO DAILY pyridoxine (vitamin B6) 100 mg PO DAILY tamsulosin (Flomax) 0.4 mg PO BEDTIME warfarin 1 tab See Protocol PO DAILY Nursing Note NO CP,SOB,DIET/MED CHANGES,FALLS OR SX OF BLEEDING. RESUME PREVIOUS DOSE AND FOLLOW-UP IN 2 WEEKS. GOOD UNDERSTANDING OF DOSING INSTR. Anti-Coag Initial Assessment Social Hx Patient Tobacco Use Status: Former Tobacco user Quit Date: 1989 Tobacco use type: Cigarette Alcohol intake frequency: former alcohol drinker Cardiovascular Hx: HTN, Arrhythmias and Varicose Veins Musculoskeletal Hx: Arthritis GI Hx: Other (GERD) Neurological Hx: Epilepsy/Seizures Cancer HX: No Psych. Illness/Depression: Yes (DEPRESSION) Coding Level of Care Code Est Patient Level 1 Diagnoses Current use of anticoagulant therapy Z79.01 Assessment & Plan Assessment & Plan (1) Current use of anticoagulant therapy: Code(s): Z79.01 - [facility] (current) use of anticoagulants Category: Medical
== END 2023-01-01 09:44 | disposition home or self-care (01) ==
LOC: HO.ACS 09:24
PROVIDERS: PCP Internal Medicine Medical Oncology; Visit Provider Internal Medicine
DX: Z79.01 Long term (current) use of anticoagulants (principal)

== ENCOUNTER → 2023-01-01 09:24 | Outpatient (BNVA) | payer MEDICARE, SELFPAY | PROVIDERS: PCP Internal Medicine Medical Oncology; Visit Provider Internal Medicine | DX: I48.91 Unspecified atrial fibrillation (principal); Z51.81 Encounter for therapeutic drug level monitoring; Z79.01 Long term (current) use of anticoagulants | CPT/HCPCS: 85610; 99211 ==

== ENCOUNTER 2023-01-03 07:42 | Outpatient (REF) | payer MEDICARE, SELFPAY ==
--- NOTE | ~2023-01-03 | XR_ITS ---
EXAMINATION: XR SHOULDER, RIGHT CLINICAL INFORMATION: Reason for Exam M25.511 - Pain in right shoulder COMPARISON: Shoulder radiographs 07/02/2019 TECHNIQUE: Two views of the shoulder. FINDINGS: No acute fracture or dislocation. Loss of subacromial joint space which can be seen in the setting of rotator cuff pathology. Moderate degenerative changes of the shoulder with loss of glenohumeral and acromioclavicular joint space progressed from prior. Soft tissues are unremarkable. Visualized portion of lung appears clear. Soft tissues are unremarkable. XR/XR shoulder RT min 2V IMPRESSION: 1. No acute fracture or dislocation. 2. Loss of subacromial joint space which can be seen in the setting of rotator cuff pathology. 3. Moderate degenerative changes of the shoulder progressed from prior.
== END 2023-01-03 07:43 | disposition home or self-care (01) ==
LOC: HO.HOSX 07:42
PROVIDERS: Visit Provider Orthopaedic Surgery
DX: M25.511 Pain in right shoulder (principal); R20.0 Anesthesia of skin
CPT/HCPCS: 73030; 99202

== ENCOUNTER 2023-01-03 10:47 | Outpatient (AMB) | payer MEDICARE, SELFPAY ==
--- NOTE | 2023-01-03 10:50 | MHC.OFFVIS ---
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 He has pain in the shoulder that radiates down the arms making it difficult to do above the shoulder activities. He has bilateral hand pain with numbness and tingling, no history of NCS. The patient states that he has difficulty with fine motor control because of the numbness in both of his hands. Allergies indomethacin [From INDOCIN] Allergy (Intermediate, Verified 01/01/23 09:33) RASH oxycodone [OXYCODONE] Allergy (Intermediate, Verified 01/01/23 09:33) VOMITING/RASH Sulfa (Sulfonamide Antibiotics) [SULFA (SULFONAMIDE ANTIBIOTICS)] Allergy (Intermediate, Verified 01/01/23 09:33) BLISTERS, sore on the end of his penis acetaminophen [Percocet] Adverse Reaction (Unknown, Verified 01/01/23 09:33) vomiting Medication List - Last Reconciled 01/03/23 by Rc Wells MD acetaminophen ER 650 mg PO DAILY atorvastatin 1 tab PO DAILY cholecalciferol (vitamin D3) 25 mcg PO DAILY omeprazole 1 cap PO DAILY paroxetine HCl 40 mg PO DAILY propranolol ER 1 cap PO DAILY pyridoxine (vitamin B6) 100 mg PO DAILY tamsulosin (Flomax) 0.4 mg PO BEDTIME warfarin 1 tab See Protocol PO DAILY PFS Medical History A-fib (~02/2022) Anxiety BPH w urinary obs/LUTS CAD (coronary artery disease) Cardiac ischemia Current use of anticoagulant therapy Depression GERD (gastroesophageal reflux disease) History of COVID-19 Hyperlipidemia Hypertension Left rib fracture Lung nodule Mild mitral valve regurgitation Osteoarthritis of left knee Recurrent UTI (urinary tract infection) Right rib fracture Rotator cuff tear arthropathy of both shoulders Tubular adenoma Surgical History History of appendectomy History of cardiac cath History of colonoscopy History of cystoscopy History of lithotripsy History of prostate surgery History of suprapubic catheter History of total right knee replacement Family History Mother No problems noted. Father No problems noted. Social History Household Members: None Housing: House Do you presently have visiting nurse or other home services: No Patient Tobacco Use Status: Former Tobacco user Quit Date: 1989 Tobacco use type: Cigarette Years Smoked: 20 Advance Directives Date on File: 02/28/22 service: Yes Current occupational status: retired Current occupation: [employer] - right handed Current occupational exposures/hazards: No Physical Exam Vital Signs: BMI result Body Mass Index 22.3 Const Other: Well-nourished well-developed very friendly male awake alert and oriented x3 in no acute distress Extrem Other: Bilateral hand examination shows decreased sensation to light touch along his median and ulnar nerve distributions, moderate thenar muscle wasting, positive Tinel's test over his carpal tunnels, no skin lesions Bilateral shoulder examination shows forward flexion to 90 degrees, external rotation to 20 degrees, crepitus with range of motion, pain with range of motion, 3/5 strength with supraspinatus testing Results Reviewed Results Reviewed: X-rays of the patient's right shoulder taken today show severe glenohumeral joint degenerative changes as well as a high riding humeral head consistent with rotator cuff tear arthropathy, no acute bony abnormalities Assessment & Plan Assessment & Plan (1) Right shoulder pain: Code(s): M25.511 - Pain in right shoulder Plan: Mr. Tony presents with bilateral shoulder pains, right greater than left, due to rotator cuff tear arthropathy. He also has numbness and tingling in both of his hands possibly due to carpal tunnel syndrome versus cervical neuropathy. I had a lengthy discussion with the patient regarding the treatment options. He wishes to hold off on reverse total shoulder replacement surgery for as long as possible. I agree with this plan. Activity modifications were discussed at length with the patient. I will send him for EMG evaluations of both of his upper extremities for further evaluation of his numbness and tingling. I will see him back once the studies are completed to discuss the findings and treatment options. Feel free to call me at any time should questions regarding his orthopedic management arise. Thank you very much for asking me to see this very friendly gentleman. I spent 23 minutes in reviewing the patient's records and imaging studies, seeing the patient and documenting in the medical record. (2) Bilateral hand numbness: Code(s): R20.0 - Anesthesia of skin Orders: Orders XR shoulder RT min 2V Today M25.511 - Pain in right shoulder NE electromyogram (EMG) Today R20.0 - Anesthesia of skin Coding Level of Care Code New Pt Level 2 (56139) Diagnoses Right shoulder pain M25.511 Bilateral hand numbness R20.0
[2023-01-03 10:59] VITALS: BMI 22.3
== END 2023-01-03 11:37 | disposition home or self-care (01) ==
PROVIDERS: PCP Internal Medicine Medical Oncology; Visit Provider Orthopaedic Surgery
DX: M25.511 Pain in right shoulder (principal); R20.0 Anesthesia of skin
CPT/HCPCS: 99202

== ENCOUNTER 2023-01-15 09:26 | Outpatient (AMB) | payer MEDICARE, SELFPAY ==
[2023-01-15 09:37] LABS: Prothrombin Time Whole Bld POC 21.3 sec (11.1-13.5); ~PT, ~INR - Anti Coag Clinic 1.8 (0.9-1.1)
--- NOTE | 2023-01-15 09:48 | MHC.OFFVISCO ---
Intake Intake Visit Reasons: Anticoagulation Allergies indomethacin [From INDOCIN] Allergy (Intermediate, Verified 01/15/23 09:31) RASH oxycodone [OXYCODONE] Allergy (Intermediate, Verified 01/15/23 09:31) VOMITING/RASH Sulfa (Sulfonamide Antibiotics) [SULFA (SULFONAMIDE ANTIBIOTICS)] Allergy (Intermediate, Verified 01/15/23 09:31) BLISTERS, sore on the end of his penis acetaminophen [Percocet] Adverse Reaction (Unknown, Verified 01/15/23 09:31) vomiting Medication List - Last Reconciled 01/15/23 by Luci Connor RN acetaminophen ER 650 mg PO DAILY atorvastatin 1 tab PO DAILY cholecalciferol (vitamin D3) 25 mcg PO DAILY lorazepam 0.5 mg PO DAILY PRN omeprazole 1 cap PO DAILY paroxetine HCl 40 mg PO DAILY propranolol ER 1 cap PO DAILY pyridoxine (vitamin B6) 100 mg PO DAILY tamsulosin (Flomax) 0.4 mg PO BEDTIME warfarin 1 tab See Protocol PO DAILY Nursing Note INR 1.8? out of therapeutic range Medications and supplements reviewed Patient status: HX OF MAJOR NOSE BLEEDS WITH ELEVATED INR, ALSO HAS A RENAL STONE THAT GAVE HIM PAIN LAST NIGHT, NO HEMATURIA, DISCUSSED THE POSSIBILITY OF LEMON WATER TO HELP DECREASE RENAL STONES AND TO DISCUSS WITH MD Medications or supplements: NO CHANGES Diet: TOLERATED Denies any signs and symptoms of bleeding or clotting or unusual bruising Bleeding, bruising, clotting discussed Nutritional guidance given: AVOID GREENS TODAY AND TOMORROW - EAT A FEW MORE REDS AND ORANGE TO HELP RAISE THE INR Dose: 5MG X 2 DAYS THIS WEEK THEN RESUME 5MG X 1 DAY/ 2.5MG X 6 DAYS F/U INR Date : 2 WEEKS IF STILL LOW INCREASE WEEKLY DOSE?? Patient verbalizing understanding of instructions given. Anti-Coag Initial Assessment Social Hx Patient Tobacco Use Status: Former Tobacco user Quit Date: 1989 Tobacco use type: Cigarette Alcohol intake frequency: former alcohol drinker Cardiovascular Hx: HTN, Arrhythmias and Varicose Veins Musculoskeletal Hx: Arthritis GI Hx: Other (GERD) Neurological Hx: Epilepsy/Seizures Cancer HX: No Psych. Illness/Depression: Yes (DEPRESSION) Coding Level of Care Code Est Patient Level 1 Diagnoses Current use of anticoagulant therapy Z79.01 Assessment & Plan Assessment & Plan (1) Current use of anticoagulant therapy: Code(s): Z79.01 - [facility] (current) use of anticoagulants Category: Medical
== END 2023-01-15 09:54 | disposition home or self-care (01) ==
LOC: HO.ACS 09:26
PROVIDERS: PCP Internal Medicine Medical Oncology; Visit Provider Internal Medicine
DX: Z79.01 Long term (current) use of anticoagulants (principal)

== ENCOUNTER → 2023-01-15 09:26 | Outpatient (BNVA) | payer MEDICARE, SELFPAY | PROVIDERS: PCP Internal Medicine Medical Oncology; Visit Provider Internal Medicine | DX: I48.91 Unspecified atrial fibrillation (principal); Z79.01 Long term (current) use of anticoagulants; Z51.81 Encounter for therapeutic drug level monitoring | CPT/HCPCS: 85610; 99211 ==

== ENCOUNTER 2023-01-30 08:54 | Outpatient (AMB) | payer MEDICARE, SELFPAY ==
[2023-01-30 09:16] LABS: ~PT, ~INR - Anti Coag Clinic 1.6 (0.9-1.1)
--- NOTE | 2023-01-30 09:19 | MHC.OFFVISCO ---
Intake Intake Visit Reasons: Anticoagulation Allergies indomethacin [From INDOCIN] Allergy (Intermediate, Verified 01/30/23 09:11) RASH oxycodone [OXYCODONE] Allergy (Intermediate, Verified 01/15/23 09:31) VOMITING/RASH Sulfa (Sulfonamide Antibiotics) [SULFA (SULFONAMIDE ANTIBIOTICS)] Allergy (Intermediate, Verified 01/30/23 09:11) BLISTERS, sore on the end of his penis acetaminophen [Percocet] Adverse Reaction (Unknown, Verified 01/30/23 09:11) vomiting Medication List - Last Reconciled 01/30/23 by Dena Wetzel RN acetaminophen ER 650 mg PO DAILY atorvastatin 1 tab PO DAILY cholecalciferol (vitamin D3) 25 mcg PO DAILY lorazepam 0.5 mg PO DAILY PRN omeprazole 1 cap PO DAILY paroxetine HCl 40 mg PO DAILY propranolol ER 1 cap PO DAILY pyridoxine (vitamin B6) 100 mg PO DAILY tamsulosin 0.4 mg PO BEDTIME warfarin 1 tab See Protocol PO DAILY Nursing Note PT.DENIES ANY MISSED DOSES, BUT STATES THAT NHE TOOK A LOWER DOSE ONBE DAY THIS WEEK. NO CP,SOB,DIET/MED CHANGES,FALLS OR SX OF BLEEDING. INCREASE WEEKLY DOSE TO 5MGM X2 AND FOLLOW-UP IN 2 WEEKS., NO GREENS 2 DAYS. GOOD UNDERSTANDING OF DOSING INSTR. Anti-Coag Initial Assessment Social Hx Patient Tobacco Use Status: Former Tobacco user Quit Date: 1989 Tobacco use type: Cigarette Alcohol intake frequency: former alcohol drinker Cardiovascular Hx: HTN, Arrhythmias and Varicose Veins Musculoskeletal Hx: Arthritis GI Hx: Other (GERD) Neurological Hx: Epilepsy/Seizures Cancer HX: No Psych. 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
== END 2023-01-30 09:23 | disposition home or self-care (01) ==
LOC: HO.ACS 08:54
PROVIDERS: PCP Internal Medicine Medical Oncology; Visit Provider Internal Medicine
DX: Z79.01 Long term (current) use of anticoagulants (principal)

== ENCOUNTER → 2023-01-30 08:54 | Outpatient (BNVA) | payer MEDICARE, SELFPAY | PROVIDERS: PCP Internal Medicine Medical Oncology; Visit Provider Internal Medicine | DX: I48.91 Unspecified atrial fibrillation (principal); Z79.01 Long term (current) use of anticoagulants; Z51.81 Encounter for therapeutic drug level monitoring | CPT/HCPCS: 85610; 99211 ==

== ENCOUNTER 2023-02-07 08:53 | Outpatient (REF) | payer MEDICARE, SELFPAY ==
--- NOTE | 2023-02-07 08:56 | EMG_ITS ---
Please see scanned EMG / Nerve Conduction Report. MTDD
== END 2023-02-07 08:54 | disposition home or self-care (01) ==
LOC: HO.NEURO 08:53
PROVIDERS: PCP Internal Medicine Medical Oncology; Visit Provider Orthopaedic Surgery
DX: R20.0 Anesthesia of skin (principal)
CPT/HCPCS: 95885; 95913

== ENCOUNTER 2023-02-13 07:30 | Outpatient (REF) | payer MEDICARE, SELFPAY ==
--- NOTE | ~2023-02-13 | US_ITS ---
EXAMINATION: US RETROPERITONEAL LIMITED (RENAL ONLY) CLINICAL INFORMATION: Calculus of kidney. COMPARISON: X-ray KUB 12/13/2022 and 09/07/2022. Renal ultrasound 11/13/2022 and 09/07/2022. CT abdomen and pelvis 08/01/2022. TECHNIQUE: Real-time imaging of the kidneys. FINDINGS: RIGHT KIDNEY: 11.6 x 5.4 x 4.7 cm (SAG x AP x TRV). The kidney is normal in size, contour, and echogenicity. Renal cortical thickness is normal. Small 3 mm stone in the midpole. No focal parenchymal lesions or hydronephrosis. LEFT KIDNEY: 12.0 x 6.5 x 4.3 cm (SAG x AP x TRV). The kidney is normal in size, contour, and echogenicity. Renal cortical thickness is normal. 8 mm stone in the midpole. No focal parenchymal lesions or hydronephrosis. US/US renal BI IMPRESSION: Bilateral renal stones.
== END 2023-02-13 07:31 | disposition home or self-care (01) ==
LOC: HO.US 07:30
PROVIDERS: PCP Internal Medicine Medical Oncology; Visit Provider Urology
DX: I48.91 Unspecified atrial fibrillation (principal); Z51.81 Encounter for therapeutic drug level monitoring; Z79.01 Long term (current) use of anticoagulants; R10.9 Unspecified abdominal pain; N20.0 Calculus of kidney; G56.03 Carpal tunnel syndrome, bilateral upper limbs; R91.1 Solitary pulmonary nodule; Z87.891 Personal history of nicotine dependence
CPT/HCPCS: 76775; 85610; 99211; 99212

== ENCOUNTER 2023-02-13 08:04 | Outpatient (AMB) | payer MEDICARE, SELFPAY ==
[2023-02-13 08:15] LABS: Prothrombin Time Whole Bld POC 23.4 sec (11.1-13.5)
--- NOTE | 2023-02-13 08:18 | MHC.OFFVISCO ---
Intake Intake Visit Reasons: Anticoagulation Allergies indomethacin [From INDOCIN] Allergy (Intermediate, Verified 02/13/23 08:07) RASH oxycodone [OXYCODONE] Allergy (Intermediate, Verified 02/13/23 08:07) VOMITING/RASH Sulfa (Sulfonamide Antibiotics) [SULFA (SULFONAMIDE ANTIBIOTICS)] Allergy (Intermediate, Verified 02/13/23 08:07) BLISTERS, sore on the end of his penis acetaminophen [Percocet] Adverse Reaction (Unknown, Verified 02/13/23 08:07) vomiting Medication List - Last Reconciled 02/13/23 by Mya Lozada, RN acetaminophen ER 650 mg PO DAILY atorvastatin 1 tab PO DAILY cholecalciferol (vitamin D3) 25 mcg PO DAILY lorazepam 0.5 mg PO DAILY PRN omeprazole 1 cap PO DAILY paroxetine HCl 40 mg PO DAILY propranolol ER 1 cap PO DAILY pyridoxine (vitamin B6) 100 mg PO DAILY tamsulosin 0.4 mg PO BEDTIME warfarin 1 tab See Protocol PO DAILY Nursing Note Amb to [facility] feeling well, here early as he had kidney ultrasounds Medications and supplements reviewed No changes in health, diet, medications, or supplements Denies any unusual signs and symptoms of bruising, bleeding Denies any new Chest pain, SOB, or clotting INR: 2.0 just in therapeutic range Nutritional guidance given: balance greens and reds in diet Dose: dosin review pt did not follow the dosing increase from last visit I thought it was just for that week reviewed set up of dosing sheet and need to follow it and change med box also when there are changes to dosing. new dosing; 5mg x 2 days and 2.mg x 5 days F/U INR: 2 weeks Patient verbalizes understanding of instructions given with accurate read back/ teach back of dosing Anti-Coag Initial Assessment Social Hx Patient Tobacco Use Status: Former Tobacco user Quit Date: 1989 Tobacco use type: Cigarette Alcohol intake frequency: former alcohol drinker Cardiovascular Hx: HTN, Arrhythmias and Varicose Veins Musculoskeletal Hx: Arthritis GI Hx: Other (GERD) Neurological Hx: Epilepsy/Seizures Cancer HX: No Psych. Illness/Depression: Yes (DEPRESSION) Coding Level of Care Code Est Patient Level 1 Diagnoses Current use of anticoagulant therapy Z79.01 Time Spent (min) 20 Assessment & Plan Assessment & Plan (1) Current use of anticoagulant therapy: Code(s): Z79.01 - care home (current) use of anticoagulants Category: Medical
== END 2023-02-13 08:30 | disposition home or self-care (01) ==
LOC: HO.ACS 08:04
PROVIDERS: PCP Internal Medicine Medical Oncology; Visit Provider Internal Medicine
DX: Z79.01 Long term (current) use of anticoagulants (principal)

== ENCOUNTER 2023-02-13 14:21 | Outpatient (AMB) | payer MEDICARE, SELFPAY ==
--- NOTE | 2023-02-13 14:57 | A.OFFVIS_ITS ---
Intake Intake Visit Reasons: OV-EMG review CTS Intake Note: Reji is a 77 year old right hand dominant male who presents with complaints of progressively worsening bilateral hand pain with associated numbness and tingling. Patient states that his symptoms have gotten worse over the last few years. States that he has difficulty with fine motor control because of the numbness in both of his hands. The patient states that he is not able to tie his shoes. The patient states that he has difficulty with fine motor control because of the numbness in both of his hands. He recently underwent nerve conduction studies of his bilateral upper extremities for further evaluation. Allergies indomethacin [From INDOCIN] Allergy (Intermediate, Verified 02/13/23 14:59) RASH oxycodone [OXYCODONE] Allergy (Intermediate, Verified 02/13/23 14:59) VOMITING/RASH Sulfa (Sulfonamide Antibiotics) [SULFA (SULFONAMIDE ANTIBIOTICS)] Allergy (Intermediate, Verified 02/13/23 14:59) BLISTERS, sore on the end of his penis acetaminophen [Percocet] Adverse Reaction (Unknown, Verified 02/13/23 14:59) vomiting Medication List - Last Reconciled 02/13/23 by Rc Wells MD acetaminophen ER 650 mg PO DAILY atorvastatin 1 tab PO DAILY cholecalciferol (vitamin D3) 25 mcg PO DAILY lorazepam 0.5 mg PO DAILY PRN omeprazole 1 cap PO DAILY paroxetine HCl 40 mg PO DAILY propranolol ER 1 cap PO DAILY pyridoxine (vitamin B6) 100 mg PO DAILY tamsulosin 0.4 mg PO BEDTIME warfarin 1 tab See Protocol PO DAILY PFS Medical History A-fib (~02/2022) Anxiety BPH w urinary obs/LUTS CAD (coronary artery disease) Cardiac ischemia Current use of anticoagulant therapy Depression GERD (gastroesophageal reflux disease) History of COVID-19 Hyperlipidemia Hypertension Left rib fracture Lung nodule Mild mitral valve regurgitation Osteoarthritis of left knee Recurrent UTI (urinary tract infection) Right rib fracture Rotator cuff tear arthropathy of both shoulders Tubular adenoma Surgical History History of appendectomy History of cardiac cath History of colonoscopy History of cystoscopy History of lithotripsy History of prostate surgery History of suprapubic catheter History of total right knee replacement Family History Mother No problems noted. Father No problems noted. Social History Household Members: None Housing: House Do you presently have visiting nurse or other home services: No Patient Tobacco Use Status: Former Tobacco user Quit Date: 1989 Tobacco use type: Cigarette Years Smoked: 20 Advance Directives Date on File: 02/28/22 service: Yes Current occupational status: retired Current occupation: [employer] - right handed Current occupational exposures/hazards: No Physical Exam Const Other: Well-nourished well-developed very friendly male awake alert and oriented x3 in no acute distress Extrem Other: Bilateral upper extremity examination shows thenar muscle wasting, decreased sensation to light touch along his median nerve distributions, positive Tinel's test over his carpal tunnels Results Reviewed Results Reviewed: EMG reports of his bilateral upper extremity shows ?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 Tony presents with bilateral carpal tunnel syndrome. I had a lengthy discussion with patient regarding the treatment options. At this point he has failed continued non operative treatments. The risks and benefits of carpal tunnel release surgery were discussed at length with the patient. The patient is interested in proceeding with surgery. Thus, I will have him evaluated by Dr. Reddy. He will follow-up as instructed. Feel free to call me at any time should questions regarding his orthopedic management arise. I spent 21 minutes in reviewing the patient's records and imaging studies, seeing the patient and documenting in the medical record. Coding Level of Care Code Est Pt Level 2 (09446) Diagnoses Carpal tunnel syndrome on both sides G56.03
== END 2023-02-13 15:11 | disposition home or self-care (01) ==
PROVIDERS: PCP Internal Medicine Medical Oncology; Visit Provider Orthopaedic Surgery
DX: G56.03 Carpal tunnel syndrome, bilateral upper limbs (principal)
CPT/HCPCS: 99212

== ENCOUNTER 2023-02-27 08:55 | Outpatient (AMB) | payer MEDICARE, SELFPAY ==
--- NOTE | 2023-02-27 09:09 | MHC.OFFVISCO ---
Intake Intake Visit Reasons: Anticoagulation Allergies indomethacin [From INDOCIN] Allergy (Intermediate, Verified 02/27/23 09:03) RASH oxycodone [OXYCODONE] Allergy (Intermediate, Verified 02/27/23 09:03) VOMITING/RASH Sulfa (Sulfonamide Antibiotics) [SULFA (SULFONAMIDE ANTIBIOTICS)] Allergy (Intermediate, Verified 02/27/23 09:03) BLISTERS, sore on the end of his penis acetaminophen [Percocet] Adverse Reaction (Unknown, Verified 02/27/23 09:03) vomiting Medication List - Last Reconciled 02/27/23 by Isela Lozano RN acetaminophen ER 650 mg PO DAILY atorvastatin 1 tab PO DAILY cholecalciferol (vitamin D3) 25 mcg PO DAILY lorazepam 0.5 mg PO DAILY PRN omeprazole 1 cap PO DAILY paroxetine HCl 40 mg PO DAILY propranolol ER 1 cap PO DAILY pyridoxine (vitamin B6) 100 mg PO DAILY tamsulosin 0.4 mg PO BEDTIME warfarin 1 tab See Protocol PO DAILY Nursing Note INR: 2.1- in therapeutic range Medications and supplements reviewed- no changes No changes in health, diet, medications, or supplements, Denies any signs and symptoms of bleeding or bruising or clotting. Bleeding, bruising, clotting discussed - denies hematuria Nutritional guidance given- balance reds and greens pt states does not eat greens Dose: 5mg x 2, 2.5mg x 5 F/U INR: 2 weeks Patient verbalizes understanding of instructions given Anti-Coag Initial Assessment Social Hx Patient Tobacco Use Status: Former Tobacco user Quit Date: 1989 Tobacco use type: Cigarette Alcohol intake frequency: former alcohol drinker Cardiovascular Hx: HTN, Arrhythmias and Varicose Veins Musculoskeletal Hx: Arthritis GI Hx: Other (GERD) Neurological Hx: Epilepsy/Seizures Cancer HX: No Psych. 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
[2023-02-27 09:10] LABS: Prothrombin Time Whole Bld POC 25.7 sec (11.1-13.5); ~PT, ~INR - Anti Coag Clinic 2.1 (0.9-1.1)
== END 2023-02-27 09:15 | disposition home or self-care (01) ==
LOC: HO.ACS 08:55
PROVIDERS: PCP Internal Medicine Medical Oncology; Visit Provider Internal Medicine
DX: Z79.01 Long term (current) use of anticoagulants (principal)

== ENCOUNTER → 2023-02-27 08:55 | Outpatient (BNVA) | payer MEDICARE, SELFPAY | PROVIDERS: PCP Internal Medicine Medical Oncology; Visit Provider Internal Medicine | DX: I48.91 Unspecified atrial fibrillation (principal); Z79.01 Long term (current) use of anticoagulants; Z51.81 Encounter for therapeutic drug level monitoring | CPT/HCPCS: 85610; 99211 ==

== ENCOUNTER 2023-03-07 11:32 | Outpatient (AMB) | payer MEDICARE, SELFPAY ==
--- NOTE | 2023-03-07 11:34 | A.OFFVIS_ITS ---
Intake Intake Visit Reasons: 10wk follow up/us Allergies indomethacin [From INDOCIN] Allergy (Intermediate, Verified 03/07/23 11:52) RASH oxycodone [OXYCODONE] Allergy (Intermediate, Verified 03/07/23 11:52) VOMITING/RASH Sulfa (Sulfonamide Antibiotics) [SULFA (SULFONAMIDE ANTIBIOTICS)] Allergy (I ntermediate, Verified 03/07/23 11:52) BLISTERS, sore on the end of his penis acetaminophen [Percocet] Adverse Reaction (Unknown, Verified 03/07/23 11:52) vomiting HPI HPI Comments History of Present Illness Details Reji is a 78-year-old male who presents today to the office for a follow-up. 03/07/2023? He is followed today for US. He was last seen by me on 12/29/2022 for calculus of the kidney. Prescribed Tamsulosin 0.4mg, and he was advised to follow- up in the office in 10 months during that time.? I reviewed renal US results from 02/16/2023 revealed 8 mm stone in the midpole of the left kidney. No focal parenchymal lesions or hydronephrosis, and small 3 mm stone in the midpole of the right kidney. No focal parenchymal lesions or hydronephrosis. Review of charts: Last visit: 12/29/2022--- Reji is a 77-year-old male who presents via tele-health today for a follow up of kidney stones. His last office visit was on .? He is status post left ESWL on 12/13/2022. He underwent shock wave lithotripsy in the lower pole of the left kidney. He reports flank pain. He states that the pain is severe sometimes secondary to moving to the right side. He states that he is consuming adequate amount of water. He denies any hematuria. PSA results reviewed?10/23/2022?1.81. Prescribed Tamsulosin 0.4mg.? Fu in the office in 10 months. 03/07/2023: Evaluation today?UA? 03/07/2023: Plan: [facility] Medical History Mild mitral valve regurgitation Tubular adenoma Cardiac ischemia Rotator cuff tear arthropathy of both shoulders Depression Anxiety GERD (gastroesophageal reflux disease) Hyperlipidemia Hypertension CAD (coronary artery disease) Left rib fracture Right rib fracture History of COVID-19 Lung nodule Current use of anticoagulant therapy A-fib (~02/2022) Recurrent UTI (urinary tract infection) BPH w urinary obs/LUTS Osteoarthritis of left knee Surgical History History of suprapubic catheter History of appendectomy History of cardiac cath History of cystoscopy History of colonoscopy History of lithotripsy History of prostate surgery History of total right knee replacement Family History Mother No problems noted. Father No problems noted. Social History Household Members: None Housing: House Do you presently have visiting nurse or other home services: No Patient Tobacco Use Status: Former Tobacco user Quit Date: 1989 Tobacco use type: Cigarette Years Smoked: 20 Advance Directives Date on File: 02/28/22 service: Yes Current occupational status: retired Current occupation: [employer] - right handed Current occupational exposures/hazards: No Results Reviewed Results Reviewed: Date of Service: 02/13/23 EXAMINATION:? US RETROPERITONEAL LIMITED (RENAL ONLY) CLINICAL INFORMATION: Calculus of kidney. COMPARISON:? X-ray KUB 12/13/2022 and 09/07/2022. Renal ultrasound 11/13/2022 and 09/07/2022. CT abdomen and pelvis 08/01/2022. FINDINGS: RIGHT KIDNEY: 11.6 x 5.4 x 4.7 cm (SAG x AP x TRV). The kidney is normal in size, contour, and echogenicity. Renal cortical thickness is normal. Small 3 mm stone in the midpole. No focal parenchymal lesions or hydronephrosis. LEFT KIDNEY: 12.0 x 6.5 x 4.3 cm (SAG x AP x TRV). The kidney is normal in size, contour, and echogenicity. Renal cortical thickness is normal. 8 mm stone in the midpole. No focal parenchymal lesions or hydronephrosis. IMPRESSION:? Bilateral renal stones. Assessment & Plan Assessment & Plan Patient Instructions: The patient had an opportunity to ask questions regarding treatment plan. All questions were answered. Imaging, Laboratory studies and physical exam results were discussed and reviewed in detail. No major barriers to understanding were identified. The patient expressed understanding and agreement with the above treatment plan.? ? ? The patient is aware they should contact our office by phone for worsening of their current condition or the appearance of new symptoms. Compliance is encouraged with any medications and followup testing that is ordered.? ? ? It is a privilege to be allowed the opportunity to participate in the urologic care of your patient. If you have any questions or concerns regarding treatment for the above conditions please do not hesitate to contact me. The office telephone contact is [phone].? ? ? This note is constructed in part using voice recognition software. While every effort has been made to ensure accuracy assessment coordinator errors may have been included.? ? ? Yours sincerely,? ? ? Cheryl North MD? Coding
--- NOTE | 2023-03-07 11:51 | A.OFFVIS_ITS ---
Intake Intake Visit Reasons: 10wk follow up/us Intake Note: Patient presents today for a follow-up on Calculus of kidney, US Results Completed 02/13/2023. 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 03/07/2023? He is followed today for US. He was last seen by me on 12/29/2022 for calculus of the kidney. He states that he is consuming adequate amount of water. He denies any hematuria. He is Prescribed Tamsulosin 0.4mg, for BPH symptoms. I reviewed renal US results from 02/16/2023 revealed 8 mm stone in the midpole of the left kidney. No focal parenchymal lesions or hydronephrosis, and small 3 mm stone in the midpole of the right kidney. No focal parenchymal lesions or hydronephrosis. Review of charts: status post left ESWL on 12/13/2022. PSA results reviewed?10/23/2022?1.81. Prescribed Tamsulosin 0.4mg.? Fu in the office in 10 months. 03/07/2023: Plan: Will repeat 24-hour urine collection. Tele-health follow-up to discuss the results. 48-64 ounces water/fluids, and adding le mon to the water. Continue tamsulosin 0.4 mg, and Vitamin B6 100 mg daily. [facility] Medical History Mild mitral valve regurgitation Tubular adenoma Cardiac ischemia Rotator cuff tear arthropathy of both shoulders Depression Anxiety GERD (gastroesophageal reflux disease) Hyperlipidemia Hypertension CAD (coronary artery disease) Left rib fracture Right rib fracture History of COVID-19 Lung nodule Current use of anticoagulant therapy A-fib (~02/2022) Recurrent UTI (urinary tract infection) BPH w urinary obs/LUTS Osteoarthritis of left knee Surgical History History of suprapubic catheter History of appendectomy History of cardiac cath History of cystoscopy History of colonoscopy History of lithotripsy History of prostate surgery History of total right knee replacement Family History Mother No problems noted. Father No problems noted. Social History Household Members: None Housing: House Do you presently have visiting nurse or other home services: No Patient Tobacco Use Status: Former Tobacco user Quit Date: 1989 Tobacco use type: Cigarette Years Smoked: 20 Advance Directives Date on File: 02/28/22 service: Yes Current occupational status: retired Current occupation: [employer] - right handed Current occupational exposures/hazards: No Review of Systems Const All systems reviewed & are unremarkable except as noted in HPI and below Reports no additional complaints Eyes Reports no additional complaints ENT Denies neck pain Card Denies leg edema Resp Denies cough GI Denies constipation Musc Reports no additional complaints and Denies neck pain Skin/Breast Denies rash and Denies unusual bruising Neuro Reports no additional complaints Psych Reports no additional complaints Endo Reports no additional complaints Sandeep/Lymph Reports no additional complaints Aller/Immun Reports no additional complaints Results AMB Urinalysis, Automated UA Leukoctes 0 Joseph/uL Last Edit by AARON Mills on 03/07/23 12:05 UA Nitrite Negative Last Edit by AARON Mills on 03/07/23 12:05 UA Urobilinogen 0.2 mg/dL Last Edit by Jaleel Sohan, A on 03/07/23 12:0 5 UA Protein 0 mg/dL Last Edit by Zacharyluis felipe Sohan, A on 03/07/23 12:05 UA pH 6.0 Last Edit by Jaleel Sullivanirez, RMA on 03/07/23 12:05 UA Blood 0 Guilherme/uL Last Edit by Jaleel Parry A on 03/07/23 12:05 UA Specific Leroy 1.010 Last Edit by Jaleel Sohan, A on 03/07/23 12: 05 UA Ketone Negative Last Edit by Zacharyluis felipe Sohan, A on 03/07/23 12:05 UA Bilirubin 0 mg/dL Last Edit by Zacharydellaolinda Sullivancalvin A on 03/07/23 12:05 UA Glucose 0 mg/dL Last Edit by Zacharyluis felipe Sohan, A on 03/07/23 12:05 Results Reviewed Results Reviewed: Laboratory Last Values Urine pH (Auto) 6.0 03/07/23 11:58 Specific Leroy (Auto) 1.010 03/07/23 11:58 Urine Protein (Auto) 0 mg/dL 03/07/23 11:58 Glucose (UA)(Auto) 0 mg/dL 03/07/23 11:58 Urine Ketones (Auto) Negative 03/07/23 11:58 Urine Blood (Auto) 0 Guilherme/uL 03/07/23 11:58 Urine Nitrite (Auto) Negative 03/07/23 11:58 Urine Bilirubin (Auto) 0 mg/dL 03/07/23 11:58 Urine Urobilinogen (Auto) 0.2 mg/dL 03/07/23 11:58 Leukocyte Esterase (Auto) 0 Joseph/uL 03/07/23 11:58 Date of Service: 02/13/23 EXAMINATION:? US RETROPERITONEAL LIMITED (RENAL ONLY) CLINICAL INFORMATION: Calculus of kidney. COMPARISON:? X-ray KUB 12/13/2022 and 09/07/2022. Renal ultrasound 11/13/2022 and 09/07/2022. CT abdomen and pelvis 08/01/2022. FINDINGS: RIGHT KIDNEY: 11.6 x 5.4 x 4.7 cm (SAG x AP x TRV). The kidney is normal in size, contour, and echogenicity. Renal cortical thickness is normal. Small 3 mm stone in the midpole. No focal parenchymal lesions or hydronephrosis. LEFT KIDNEY: 12.0 x 6.5 x 4.3 cm (SAG x AP x TRV). The kidney is normal in size, contour, and echogenicity. Renal cortical thickness is normal. 8 mm stone in the midpole. No focal parenchymal lesions or hydronephrosis. IMPRESSION:? Bilateral renal stones. Assessment & Plan Assessment & Plan (1) BPH w urinary obs/LUTS: Code(s): N40.1 - Benign prostatic hyperplasia with lower urinary tract symptoms; N13.8 - Other obstructive and reflux uropathy (2) Elevated PSA: Code(s): R97.20 - Elevated prostate specific antigen [PSA] (3) Bilateral kidney stones: Code(s): N20.0 - Calculus of kidney Plan Will repeat 24-hour urine collection. Tele-health follow-up to discuss the results. 48-64 ounces water/fluids, and adding lemon to the water. Continue tamsulosin 0.4 mg, and Vitamin B6 100 mg daily. Orders: Orders AMB Urinalysis Automated 03/07/23 Z13.9 - Encounter for screening, unspecified Patient Instructions: The patient had an opportunity to ask questions regarding treatment plan. All questions were answered. Imaging, Laboratory studies and physical exam results were discussed and reviewed in detail. No major barriers to understanding were identified. The patient expressed understanding and agreement with the above treatment plan.? ? ? The patient is aware they should contact our office by phone for worsening of their current condition or the appearance of new symptoms. Compliance is encouraged with any medications and followup testing that is ordered.? ? ? It is a privilege to be allowed the opportunity to participate in the urologic care of your patient. If you have any questions or concerns regarding treatment for the above conditions please do not hesitate to contact me. The office telephone contact is [phone].? ? ? This note is constructed in part using voice recognition software. While every effort has been made to ensure accuracy box liner errors may have been included.? ? ? Yours sincerely,? ? ? Cheryl North MD? Coding Level of Care Code Est Pt Level 3 (64851) Diagnoses BPH w urinary obs/LUTS N40.1; N13.8 Elevated PSA R97.20 Bilateral kidney stones N20.0
== END 2023-03-07 13:40 | disposition home or self-care (01) ==
PROVIDERS: PCP Internal Medicine Medical Oncology; Visit Provider Urology
DX: N40.1 Benign prostatic hyperplasia with lower urinary tract symptoms (principal); N13.8 Other obstructive and reflux uropathy; R97.20 Elevated prostate specific antigen [PSA]; N20.0 Calculus of kidney
CPT/HCPCS: 99024

== ENCOUNTER → 2023-03-07 11:32 | Outpatient (BNVA) | payer MEDICARE, SELFPAY | PROVIDERS: PCP Internal Medicine Medical Oncology; Visit Provider Urology | DX: N40.1 Benign prostatic hyperplasia with lower urinary tract symptoms (principal); N13.8 Other obstructive and reflux uropathy; R97.20 Elevated prostate specific antigen [PSA]; N20.0 Calculus of kidney | CPT/HCPCS: 81003; 99212 ==

== ENCOUNTER 2023-03-13 10:09 | Outpatient (AMB) | payer MEDICARE, SELFPAY ==
--- NOTE | 2023-03-13 10:32 | MHC.OFFVISCO ---
Intake Intake Visit Reasons: Anticoagulation Allergies indomethacin [From INDOCIN] Allergy (Intermediate, Verified 03/13/23 10:26) RASH oxycodone [OXYCODONE] Allergy (Intermediate, Verified 03/13/23 10:26) VOMITING/RASH Sulfa (Sulfonamide Antibiotics) [SULFA (SULFONAMIDE ANTIBIOTICS)] Allergy (Intermediate, Verified 03/13/23 10:26) BLISTERS, sore on the end of his penis acetaminophen [Percocet] Adverse Reaction (Unknown, Verified 03/13/23 10:26) vomiting Medication List - Last Reconciled 03/13/23 by Isela Lozano, RN acetaminophen ER 650 mg PO DAILY atorvastatin 1 tab PO DAILY cholecalciferol (vitamin D3) 25 mcg PO DAILY lorazepam 0.5 mg PO DAILY PRN omeprazole 1 cap PO DAILY paroxetine HCl 40 mg PO DAILY propranolol ER 1 cap PO DAILY pyridoxine (vitamin B6) 100 mg PO DAILY tamsulosin 0.4 mg PO BEDTIME warfarin 1 tab See Protocol PO DAILY Nursing Note INR: 2.2- in therapeutic range Medications and supplements reviewed- pt states had flu vaccine at [facility] last week No changes in health, diet, medications, or supplements, Denies any signs and symptoms of bleeding or bruising or clotting. Bleeding, bruising, clotting discussed Nutritional guidance given Dose: 5mg x 2, 2.5mg x 5 F/U INR: 2 weeks Patient verbalizes understanding of instructions given Anti-Coag Initial Assessment Social Hx Patient Tobacco Use Status: Former Tobacco user Quit Date: 1989 Tobacco use type: Cigarette Alcohol intake frequency: former alcohol drinker Cardiovascular Hx: HTN, Arrhythmias and Varicose Veins Musculoskeletal Hx: Arthritis GI Hx: Other (GERD) Neurological Hx: Epilepsy/Seizures Cancer HX: No Psych. 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
[2023-03-13 10:33] LABS: Prothrombin Time Whole Bld POC 26.4 sec (11.1-13.5); ~PT, ~INR - Anti Coag Clinic 2.2 (0.9-1.1)
== END 2023-03-13 10:36 | disposition home or self-care (01) ==
LOC: HO.ACS 10:09
PROVIDERS: PCP Internal Medicine Medical Oncology; Visit Provider Internal Medicine
DX: Z79.01 Long term (current) use of anticoagulants (principal)

== ENCOUNTER → 2023-03-13 10:09 | Outpatient (BNVA) | payer MEDICARE, SELFPAY | PROVIDERS: PCP Internal Medicine Medical Oncology; Visit Provider Internal Medicine | DX: I48.20 Chronic atrial fibrillation, unspecified (principal); Z51.81 Encounter for therapeutic drug level monitoring; Z79.01 Long term (current) use of anticoagulants | CPT/HCPCS: 85610; 99211 ==

== ENCOUNTER 2023-03-27 10:10 | Outpatient (AMB) | payer MEDICARE, SELFPAY ==
--- NOTE | 2023-03-27 10:17 | MHC.OFFVISCO ---
Intake Intake Visit Reasons: Anticoagulation Allergies indomethacin [From INDOCIN] Allergy (Intermediate, Verified 03/27/23 10:14) RASH oxycodone [OXYCODONE] Allergy (Intermediate, Verified 03/27/23 10:14) VOMITING/RASH Sulfa (Sulfonamide Antibiotics) [SULFA (SULFONAMIDE ANTIBIOTICS)] Allergy (Intermediate, Verified 03/27/23 10:14) BLISTERS, sore on the end of his penis acetaminophen [Percocet] Adverse Reaction (Unknown, Verified 03/27/23 10:14) vomiting Medication List - Last Reconciled 03/27/23 by Isela Lozano RN acetaminophen ER 650 mg PO DAILY atorvastatin 1 tab PO DAILY cholecalciferol (vitamin D3) 25 mcg PO DAILY lorazepam 0.5 mg PO DAILY PRN omeprazole 1 cap PO DAILY paroxetine HCl 40 mg PO DAILY propranolol ER 1 cap PO DAILY pyridoxine (vitamin B6) 100 mg PO DAILY tamsulosin 0.4 mg PO BEDTIME warfarin 1 tab See Protocol PO DAILY Nursing Note INR 1.9-? out of therapeutic range- denies missed dose uses pill box Medications and supplements reviewed Patient status: c.o sl anxiety Medications or supplements: lorazapam prn Diet: good Denies any signs and symptoms of bleeding or clotting or unusual bruising Bleeding, bruising, clotting discussed Nutritional guidance given: no greens for 2 days, eat reds to raise Dose: 5mg today and tomm then cont 5mg x 2, 2.5mg x 5 F/U INR Date : 2 weeks?? Patient verbalizing understanding of instructions given. Anti-Coag Initial Assessment Social Hx Patient Tobacco Use Status: Former Tobacco user Quit Date: 1989 Tobacco use type: Cigarette Alcohol intake frequency: former alcohol drinker Cardiovascular Hx: HTN, Arrhythmias and Varicose Veins Musculoskeletal Hx: Arthritis GI Hx: Other (GERD) Neurological Hx: Epilepsy/Seizures Cancer HX: No Psych. Illness/Depression: Yes (DEPRESSION) Coding Level of Care Code Est Patient Level 1 Diagnoses Current use of anticoagulant therapy Z79.01 Assessment & Plan Assessment & Plan (1) Current use of anticoagulant therapy: Code(s): Z79.01 - senior living (current) use of anticoagulants Category: Medical
[2023-03-27 10:19] LABS: Prothrombin Time Whole Bld POC 23.3 sec (11.1-13.5); ~PT, ~INR - Anti Coag Clinic 1.9 (0.9-1.1)
== END 2023-03-27 10:24 | disposition home or self-care (01) ==
LOC: HO.ACS 10:10
PROVIDERS: PCP Internal Medicine Medical Oncology; Visit Provider Internal Medicine
DX: Z79.01 Long term (current) use of anticoagulants (principal)

== ENCOUNTER → 2023-03-27 10:10 | Outpatient (BNVA) | payer MEDICARE, SELFPAY | PROVIDERS: PCP Internal Medicine Medical Oncology; Visit Provider Internal Medicine | DX: I48.20 Chronic atrial fibrillation, unspecified (principal); Z79.01 Long term (current) use of anticoagulants; Z51.81 Encounter for therapeutic drug level monitoring | CPT/HCPCS: 85610; 99211 ==

== ENCOUNTER 2023-04-03 08:48 | Outpatient (AMB) | payer MEDICARE, SELFPAY ==
[2023-04-03 08:57] VITALS: BMI 22.3
--- NOTE | 2023-04-03 08:57 | MHC.OFFVIS ---
Intake Vital Signs 04/03/23 08:57 Height 6 ft 1 in Weight 169 lb BMI 22.3 Intake Visit Reasons: New Prob - B/L CTS, would like to discuss surgery Intake Note: Reji 78 yr old male who is right hand dominant, present today for a new problem visit for bilateral hand numbness and tingling that has been presents for a few years. States his symptoms have worsen over time. Patient seen with Dr. Wells who would like patient to be fully evaluated with Dr. Reddy. EMG done, reports of his bilateral upper extremity shows ?severe to end-stage left and moderately severe right median neuropathy across the carpal tunnel Patient would like to discuss treatment options. Patient is currently on warfarin. Patient is not interested in surgery. States he has braces at home but has not use them yet. Allergies indomethacin [From INDOCIN] Allergy (Intermediate, Verified 04/03/23 09:09) RASH oxycodone [OXYCODONE] Allergy (Intermediate, Verified 04/03/23 09:09) VOMITING/RASH Sulfa (Sulfonamide Antibiotics) [SULFA (SULFONAMIDE ANTIBIOTICS)] Allergy (Intermediate, Verified 04/03/23 09:09) BLISTERS, sore on the end of his penis acetaminophen [Percocet] Adverse Reaction (Unknown, Verified 04/03/23 09:09) vomiting HPI New Prob - B/L CTS, would like to discuss surgery HPI Details Reji is a 78 year old right hand dominant man who presents for a NCS review of his bilateral hand numbness. He complains of several years worsening numbness in the median nerve distribution bilaterally. His symptoms are numbness and tingling in both hands, primarily in the median nerve distribution. 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 He notes he will have to drop his hand and shake it down low to get the sensation to come back.. He says he is not interested in surgery and would like to discuss other options. He has braces at home but has not used them yet. He has CAD and a hx of A-fib, and he is on Warfarin. [facility] Medical History Mild mitral valve regurgitation Tubular adenoma Cardiac ischemia Rotator cuff tear arthropathy of both shoulders Depression Anxiety GERD (gastroesophageal reflux disease) Hyperlipidemia Hypertension CAD (coronary artery disease) Left rib fracture Right rib fracture History of COVID-19 Lung nodule Current use of anticoagulant therapy A-fib (~02/2022) Recurrent UTI (urinary tract infection) BPH w urinary obs/LUTS Osteoarthritis of left knee Surgical History History of suprapubic catheter History of appendectomy History of cardiac cath History of cystoscopy History of colonoscopy History of lithotripsy History of prostate surgery History of total right knee replacement Family History Mother No problems noted. Father No problems noted. 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 Current occupational exposures/hazards: No Review of Systems Const All systems reviewed & are unremarkable except as noted in HPI and below Physical Exam Vital Signs: BMI result Body Mass Index 22.3 Const General: cooperative, healthy appearing and no acute distress Orientation/consciousness: patient oriented x3 HEENT Head: Yes normocephalic and Yes atraumatic Eyes EOM: EOMs intact bilaterally Resp Effort & Inspection: normal respiratory effort and able to speak in complete sentences Cardio Jugular venous distension: no JVD Skin General skin exam: turgor normal Rashes: no rashes Neuro General: patient oriented x3 Extrem Other: Evaluation of Bilateral Upper Extremity: The patient is alert, oriented, and in no acute distress Neuro: Ulnar and radial nerve motor and sensory are grossly intact today. He has dense numbness in the median nerve distribution bilaterally. He has early thenar wasting with some APB muscle belly firing that is weak. Good finger cross. Vascular: Cap refill brisk ROM: He can make a fist and extend all of his digits with no locking or catching. Skin: No lacerations or abrasions. General: No Ecchymosis. No Erythema or evidence of infection. Nerve Conduction Study: Severe carpal tunnel syndrome, L>R Dr. Gonzalez 02/07/23 Psych Appearance: grossly normal Affect: normal affect Attitude: cooperative Assessment & Plan Assessment & Plan (1) Carpal tunnel syndrome on both sides: Code(s): G56.03 - Carpal tunnel syndrome, bilateral upper limbs (2) CAD (coronary artery disease): Comment: (Chronic CAD - non-obstructive by cath) Code(s): I25.10 - Atherosclerotic heart disease of [place] coronary artery without angina pectoris (3) A-fib: Onset Date: ~02/2022 Comment: (Afib - dx 02/2022 - on anticoag) Code(s): I48.91 - Unspecified atrial fibrillation Plan Assessment and plan: 1. Right carpal tunnel syndrome, severe With dense numbness, and early thenar wasting 2. Left carpal tunnel syndrome, severe With dense numbness I educated the patient about this condition We discussed operative and non operative treatment options. I am recommending surgery and had a long discussion with him about the risks and benefits of surgery, and also about the risks of not having surgery or delaying surgery further. At this point he feels like he would like to proceed with surgery. The risks and benefits of operative treatment were discussed with the patient and the patient wishes to proceed with surgery. These risks include, but are not limited to risk of damage to blood vessels, nerves, tendons, infection, recurrence, incomplete relief of preoperative symptoms, persistent pain, possible need for further surgery and the risks associated with regional blocks and anesthesia. The plan is to take the patient to the operating room sometime in May or June for the following procedures: 1. Right carpal tunnel release under local 2. [ ] All of the preoperative paperwork including the consent was filled out today. All the patient's questions were answered. The patient understands that they will be contacted by our bilingual speech language pathologist soon to schedule this procedure He takes Coumadin, and knows that he does not have to stop his Coumadin before surgery. 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 I am estimating he can probably get back to work between 1 and 3 weeks depending on how he is doing. Unfortunately this patient is mostly alone, as much of his family and friends have . Coding Level of Care Code New Pt Level 4 (91310) Diagnoses Carpal tunnel syndrome on both sides G56.03 CAD (coronary artery disease) I25.10 A-fib I48.91
== END 2023-04-03 09:56 | disposition home or self-care (01) ==
PROVIDERS: PCP Internal Medicine Medical Oncology; Visit Provider Orthopaedic Surgery
DX: G56.03 Carpal tunnel syndrome, bilateral upper limbs (principal); I25.10 Atherosclerotic heart disease of native coronary artery without angina pectoris; I48.91 Unspecified atrial fibrillation
CPT/HCPCS: 99214

== ENCOUNTER → 2023-04-03 08:48 | Outpatient (BNVA) | payer MEDICARE, SELFPAY | PROVIDERS: PCP Internal Medicine Medical Oncology; Visit Provider Orthopaedic Surgery | DX: G56.03 Carpal tunnel syndrome, bilateral upper limbs (principal); I25.10 Atherosclerotic heart disease of native coronary artery without angina pectoris; I48.91 Unspecified atrial fibrillation | CPT/HCPCS: 99212 ==

== ENCOUNTER 2023-04-10 10:07 | Outpatient (AMB) | payer MEDICARE, SELFPAY ==
[2023-04-10 10:16] LABS: Prothrombin Time Whole Bld POC 30.1 sec (11.1-13.5); ~PT, ~INR - Anti Coag Clinic 2.5 (0.9-1.1)
--- NOTE | 2023-04-10 10:17 | MHC.OFFVISCO ---
Intake Intake Visit Reasons: Anticoagulation Allergies indomethacin [From INDOCIN] Allergy (Intermediate, Verified 04/10/23 10:08) RASH oxycodone [OXYCODONE] Allergy (Intermediate, Verified 04/10/23 10:08) VOMITING/RASH Sulfa (Sulfonamide Antibiotics) [SULFA (SULFONAMIDE ANTIBIOTICS)] Allergy (Intermediate, Verified 04/10/23 10:08) BLISTERS, sore on the end of his penis acetaminophen [Percocet] Adverse Reaction (Unknown, Verified 04/10/23 10:08) vomiting Medication List - Last Reconciled 04/10/23 by Mya Lozada RN acetaminophen ER 650 mg PO DAILY atorvastatin 1 tab PO DAILY cholecalciferol (vitamin D3) 25 mcg PO DAILY lorazepam 0.5 mg PO DAILY PRN omeprazole 1 cap PO DAILY paroxetine HCl 40 mg PO DAILY propranolol ER 1 cap PO DAILY pyridoxine (vitamin B6) 100 mg PO DAILY tamsulosin 0.4 mg PO BEDTIME warfarin 1 tab See Protocol PO DAILY Nursing Note Amb to ACS feeling well Medications and supplements reviewed, recent flu shot No changes in health, diet, medications, or supplements Denies any unusual signs and symptoms of bruising, bleeding Denies any new Chest pain, SOB, or clotting INR: 2.5 in therapeutic range Nutritional guidance given: balance greens and reds in diet Dose: continue usual dosing;5mg x 2 days and 2.5mg x 5 days, sts he never ran out of warfarin and got his refill, however pt not sure if he the extra 5mg in dosing from last visit (03/27) F/U INR: 2 weeks Patient verbalizes understanding of instructions given with accurate read back/ teach back of dosing Anti-Coag Initial Assessment Social Hx Patient Tobacco Use Status: Former Tobacco user Quit Date: 1989 Tobacco use type: Cigarette Alcohol intake frequency: former alcohol drinker Cardiovascular Hx: HTN, Arrhythmias and Varicose Veins Musculoskeletal Hx: Arthritis GI Hx: Other (GERD) Neurological Hx: Epilepsy/Seizures Cancer HX: No Psych. 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
== END 2023-04-10 10:21 | disposition home or self-care (01) ==
LOC: HO.ACS 10:07
PROVIDERS: PCP Internal Medicine Medical Oncology; Visit Provider Internal Medicine
DX: Z79.01 Long term (current) use of anticoagulants (principal)

== ENCOUNTER → 2023-04-10 10:07 | Outpatient (BNVA) | payer MEDICARE, SELFPAY | PROVIDERS: PCP Internal Medicine Medical Oncology; Visit Provider Internal Medicine | DX: I48.20 Chronic atrial fibrillation, unspecified (principal); Z79.01 Long term (current) use of anticoagulants; Z51.81 Encounter for therapeutic drug level monitoring | CPT/HCPCS: 85610; 99211 ==

== ENCOUNTER 2023-04-24 10:16 | Outpatient (AMB) | payer MEDICARE, SELFPAY ==
[2023-04-24 10:24] LABS: Prothrombin Time Whole Bld POC 26.2 sec (11.1-13.5); ~PT, ~INR - Anti Coag Clinic 2.2 (0.9-1.1)
--- NOTE | 2023-04-24 10:26 | MHC.OFFVISCO ---
Intake Intake Visit Reasons: Anticoagulation Allergies indomethacin [From INDOCIN] Allergy (Intermediate, Verified 04/24/23 10:18) RASH oxycodone [OXYCODONE] Allergy (Intermediate, Verified 04/24/23 10:18) VOMITING/RASH Sulfa (Sulfonamide Antibiotics) [SULFA (SULFONAMIDE ANTIBIOTICS)] Allergy (Intermediate, Verified 04/24/23 10:18) BLISTERS, sore on the end of his penis acetaminophen [Percocet] Adverse Reaction (Unknown, Verified 04/24/23 10:18) vomiting Medication List - Last Reconciled 04/24/23 by Mya Lozada RN acetaminophen ER 650 mg PO DAILY atorvastatin 1 tab PO DAILY cholecalciferol (vitamin D3) 25 mcg PO DAILY lorazepam 0.5 mg PO DAILY PRN omeprazole 1 cap PO DAILY paroxetine HCl 40 mg PO DAILY propranolol ER 1 cap PO DAILY pyridoxine (vitamin B6) 100 mg PO DAILY tamsulosin 0.4 mg PO BEDTIME warfarin 1 tab See Protocol PO DAILY Nursing Note Amb to ACS feeling well Medications and supplements reviewed No changes in health, diet, medications, or supplements Denies any unusual signs and symptoms of bruising, bleeding Denies any new Chest pain, SOB, or clotting INR: 2.2 in therapeutic range Nutritional guidance given: balance greens and reds in diet, be aware of the red raisers at Thanksgiving Dose: continue usual dosing; 5mg x 2 days and 2.5mg x 5 days F/U INR: 2 weeks Patient verbalizes understanding of instructions given with accurate read back/ teach back of dosing Anti-Coag Initial Assessment Social Hx Patient Tobacco Use Status: Former Tobacco user Quit Date: 1989 Tobacco use type: Cigarette Alcohol intake frequency: former alcohol drinker Cardiovascular Hx: HTN, Arrhythmias and Varicose Veins Musculoskeletal Hx: Arthritis GI Hx: Other (GERD) Neurological Hx: Epilepsy/Seizures Cancer HX: No Psych. Illness/Depression: Yes (DEPRESSION) Questionnaires HAS-BLED Does the patient had uncontrolled Hypertension?: No Does the patient have renal disease?: No Does the patient have liver disease?: No Does the patient have a history of stroke?: No Has the patient had major bleeding or predisposition to bleeding?: Yes Does the patient have labile INRs?: No Is the patient over 65 years of age?: Yes Is the patient on medications that gives them a predisposition to bleeding?: Yes Does the patient use alcohol?: No HAS-BLED Score: 3 CHADSVASC Age: 75 or over Gender: Male Does the patient have a history of CHF?: No Does the patient have a history of Hypertension?: Yes Does the patient have a history of Stroke/TIA/Thromboembolism?: No Does the patient have a history of Vascular Disease (prior [place], PAD or aortic plaque)?: Yes Does the patient have a history of Diabetes?: No CHADS VACS Score: 4 Vee Prediction Score Rsk VTE Active Cancer: No Previous VTE, excluding superficial vein thrombosis: No Reduced mobility: No Already known Thrombophilic Condition: Yes With-in last month Trauma and/or Surgery: No Elderly 70 year or older: Yes Heart and/or Respiratory Failure: No Acute Myocardial infarction and/or Ischemic Stroke: No Acute Infection and/or Rheumatologic Disorder: No Obesity (BMI 30 or greater): No Ongoing Hormonal Treatment: No Score: 4 Vee Score less than 4; Low Risk of VTE Vee Score 4 or greater; High Risk of VTE Coding Level of Care Code Est Patient Level 1 Diagnoses Current use of anticoagulant therapy Z79.01 Time Spent (min) 15 Assessment & Plan Assessment & Plan (1) Current use of anticoagulant therapy: Code(s): Z79.01 - prison (current) use of anticoagulants Category: Medical
== END 2023-04-24 10:33 | disposition home or self-care (01) ==
LOC: HO.ACS 10:16
PROVIDERS: PCP Internal Medicine Medical Oncology; Visit Provider Internal Medicine
DX: Z79.01 Long term (current) use of anticoagulants (principal)

== ENCOUNTER → 2023-04-24 10:16 | Outpatient (BNVA) | payer MEDICARE, SELFPAY | PROVIDERS: PCP Internal Medicine Medical Oncology; Visit Provider Internal Medicine | DX: I48.20 Chronic atrial fibrillation, unspecified (principal); Z79.01 Long term (current) use of anticoagulants; Z51.81 Encounter for therapeutic drug level monitoring | CPT/HCPCS: 85610; 99211 ==

== ENCOUNTER 2023-05-08 10:21 | Outpatient (AMB) | payer MEDICARE, SELFPAY ==
--- NOTE | 2023-05-08 10:25 | MHC.OFFVISCO ---
Intake Intake Visit Reasons: Anticoagulation Allergies indomethacin [From INDOCIN] Allergy (Intermediate, Verified 05/08/23 10:22) RASH oxycodone [OXYCODONE] Allergy (Intermediate, Verified 05/08/23 10:22) VOMITING/RASH Sulfa (Sulfonamide Antibiotics) [SULFA (SULFONAMIDE ANTIBIOTICS)] Allergy (Intermediate, Verified 05/08/23 10:22) BLISTERS, sore on the end of his penis acetaminophen [Percocet] Adverse Reaction (Unknown, Verified 05/08/23 10:22) vomiting Medication List - Last Reconciled 05/08/23 by Isela Lozano RN acetaminophen ER 650 mg PO DAILY atorvastatin 1 tab PO DAILY cholecalciferol (vitamin D3) 25 mcg PO DAILY lorazepam 0.5 mg PO DAILY PRN omeprazole 1 cap PO DAILY paroxetine HCl 40 mg PO DAILY propranolol ER 1 cap PO DAILY pyridoxine (vitamin B6) 100 mg PO DAILY tamsulosin 0.4 mg PO BEDTIME warfarin 1 tab See Protocol PO DAILY Nursing Note INR: 2.5- in therapeutic range of 2-3 Medications and supplements reviewed No changes in health, diet, medications, or supplements, Denies any signs and symptoms of bleeding or bruising or clotting. Bleeding, bruising, clotting discussed Nutritional guidance given Dose: 5mg x 2, 2.5mg x 5 F/U INR: 2 weeks Patient verbalizes understanding of instructions given Anti-Coag Initial Assessment Social Hx Patient Tobacco Use Status: Former Tobacco user Quit Date: 1989 Tobacco use type: Cigarette Alcohol intake frequency: former alcohol drinker Cardiovascular Hx: HTN, Arrhythmias and Varicose Veins Musculoskeletal Hx: Arthritis GI Hx: Other (GERD) Neurological Hx: Epilepsy/Seizures Cancer HX: No Psych. Illness/Depression: Yes (DEPRESSION) Coding Level of Care Code Est Patient Level 1 Results AMB INR Fingerstick AMB INR Fingerstick 2.5 Last Edit by Isela Lozano RN on 05/08/23 10:27
[2023-05-08 10:26] LABS: Prothrombin Time Whole Bld POC 30.2 sec (11.1-13.5); ~PT, ~INR - Anti Coag Clinic 2.5 (0.9-1.1)
== END 2023-05-08 10:48 | disposition home or self-care (01) ==
LOC: HO.ACS 10:21
PROVIDERS: PCP Internal Medicine Medical Oncology; Visit Provider Internal Medicine
DX: Z79.01 Long term (current) use of anticoagulants (principal)

== ENCOUNTER → 2023-05-08 10:21 | Outpatient (BNVA) | payer MEDICARE, SELFPAY | PROVIDERS: PCP Internal Medicine Medical Oncology; Visit Provider Internal Medicine | DX: I48.20 Chronic atrial fibrillation, unspecified (principal); Z79.01 Long term (current) use of anticoagulants; Z51.81 Encounter for therapeutic drug level monitoring | CPT/HCPCS: 85610; 99211 ==

== ENCOUNTER 2023-05-21 11:32 | Outpatient (REF) | payer MEDICARE, SELFPAY ==
[2023-05-21 11:56] LABS: MANUAL DIFF FLAG NO
[2023-05-21 12:38] LABS: Basophils Absolute Auto 0.1 X10*3/uL (0.0-0.2); Basophils Percent Auto 0.8 % (0-2); Eosinophils Absolute Auto 0.5 X10*3/uL (0.0-0.4); Eosinophils Percent Auto 8.3 % (0-4); Hematocrit 39.2 % (42.0-52.0); Imm Gran Abs Auto 0.02 X10*3/uL (0.00-0.03); Imm Gran Pct Auto 0.3 % (0.0-0.4); Lymphocytes Percent Auto 16.1 % (20-40); Mean Corpuscular HGB Conc 33.2 g/dl (31.0-36.0); Mean Corpuscular Hemoglobin 29.3 pg (27.0-33.0); Mean Corpuscular Volume 88.5 fL (80.0-98.0); Mean Platelet Volume 10.5 fL (9.4-12.4); Monocytes Absolute Auto 0.6 X10*3/uL (0.1-1.2); Monocytes Percent Auto 9.7 % (2-11); Neutrophils Absolute Auto 4.1 x10*3/uL (2.0-8.3); Neutrophils Percent Auto 64.8 % (45-73); Platelet Count 260 X10*3/uL (160-400); Red Blood Count 4.43 X10*6/uL (4.60-5.80); Red Cell Distribution Width 12.7 % (11.0-16.0); White Blood Count 6.3 X10*3/uL (4.8-10.8)
[2023-05-21 13:23] LABS: Alanine Aminotransferase 19 U/L (0-40); Albumin Level 3.9 g/dL (3.5-5.0); Alkaline Phosphatase 87 U/L (39-117); Anion Gap 11 (12-20); Aspartate Amino Transferase 21 U/L (5-37); Blood Urea Nitrogen 14 mg/dL (9-16); Calcium 9.7 mg/dL (8.4-10.2); Carbon Dioxide 26 mmol/L (22-29); Chloride 106 mmol/L (96-108); Cholesterol 127 mg/dL (<200); Estimated Glomerular Filt Rate > 60; Glucose Fasting 109 mg/dL (60-99); HDL Cholesterol 42 mg/dL (>40); LDL Cholesterol Calculated 56 mg/dL (<100); Potassium 4.1 mmol/L (3.3-5.1); Sodium 139 mmol/L (135-145); Triglycerides 146 mg/dL (<150)
[2023-05-21 13:31] LABS: Prostate Specific Antigen 3.19 ng/mL (<0.05-4.0)
== END 2023-05-21 11:33 | disposition home or self-care (01) ==
LOC: HO.LAB 11:32
PROVIDERS: PCP Internal Medicine Medical Oncology; Visit Provider Internal Medicine Medical Oncology
DX: S01.419A Laceration without foreign body of unspecified cheek and temporomandibular area, initial encounter (principal); N40.1 Benign prostatic hyperplasia with lower urinary tract symptoms; E66.3 Overweight; Z12.5 Encounter for screening for malignant neoplasm of prostate; X58.XXXA Exposure to other specified factors, initial encounter; Y93.9 Activity, unspecified; Y92.9 Unspecified place or not applicable; Y99.9 Unspecified external cause status
CPT/HCPCS: 36415; 80053; 80061; 84153; 85025

== ENCOUNTER 2023-05-22 10:22 | Outpatient (AMB) | payer MEDICARE, SELFPAY ==
[2023-05-22 10:38] LABS: Prothrombin Time Whole Bld POC 34.3 sec (11.1-13.5); ~PT, ~INR - Anti Coag Clinic 2.9 (0.9-1.1)
--- NOTE | 2023-05-22 10:47 | MHC.OFFVISCO ---
Intake Intake Visit Reasons: Anticoagulation Allergies indomethacin [From INDOCIN] Allergy (Intermediate, Verified 05/22/23 10:31) RASH oxycodone [OXYCODONE] Allergy (Intermediate, Verified 05/22/23 10:31) VOMITING/RASH Sulfa (Sulfonamide Antibiotics) [SULFA (SULFONAMIDE ANTIBIOTICS)] Allergy (Intermediate, Verified 05/22/23 10:31) BLISTERS, sore on the end of his penis acetaminophen [Percocet] Adverse Reaction (Unknown, Verified 05/22/23 10:31) vomiting Medication List - Last Reconciled 05/22/23 by Luci Connor, RN acetaminophen ER 650 mg PO DAILY atorvastatin 1 tab PO DAILY cholecalciferol (vitamin D3) 25 mcg PO DAILY lorazepam 0.5 mg PO DAILY PRN omeprazole 1 cap PO DAILY paroxetine HCl 40 mg PO DAILY propranolol ER 1 cap PO DAILY pyridoxine (vitamin B6) 100 mg PO DAILY tamsulosin 0.4 mg PO BEDTIME warfarin 1 tab See Protocol PO DAILY Nursing Note INR: 2.9 in therapeutic range anniversary date of wifes 06/2023 year, [facility] social gatherings - he states he enjoys [employer] for meals Medications and supplements reviewed Pt was to have carpal tunnel surgery 06/14/23 - but states he is going to cancel it because he lives by himself and that's hard enough - how can he manage 1 handed? He was enc to discuss with MD Denies any signs and symptoms of bleeding or bruising or clotting. Bleeding, bruising, clotting discussed Nutritional guidance given - remember weekly greens Dose: 5mg x 2 days/ 2.5mg x 5 days F/U INR: 3 weeks Patient verbalizes understanding of instructions given Anti-Coag Initial Assessment Social Hx Patient Tobacco Use Status: Former Tobacco user Quit Date: 1989 Tobacco use type: Cigarette Alcohol intake frequency: former alcohol drinker Cardiovascular Hx: HTN, Arrhythmias and Varicose Veins Musculoskeletal Hx: Arthritis GI Hx: Other (GERD) Neurological Hx: Epilepsy/Seizures Cancer HX: No Psych. Illness/Depression: Yes (DEPRESSION) Coding Level of Care Code Est Patient Level 1 Diagnoses Current use of anticoagulant therapy Z79.01 Assessment & Plan Assessment & Plan (1) Current use of anticoagulant therapy: Code(s): Z79.01 - alf (current) use of anticoagulants Category: Medical
== END 2023-05-22 10:51 | disposition home or self-care (01) ==
LOC: HO.ACS 10:22
PROVIDERS: PCP Internal Medicine Medical Oncology; Visit Provider Internal Medicine
DX: Z79.01 Long term (current) use of anticoagulants (principal)

== ENCOUNTER → 2023-05-22 10:22 | Outpatient (BNVA) | payer MEDICARE, SELFPAY | PROVIDERS: PCP Internal Medicine Medical Oncology; Visit Provider Internal Medicine | DX: I48.20 Chronic atrial fibrillation, unspecified (principal); Z79.01 Long term (current) use of anticoagulants; Z51.81 Encounter for therapeutic drug level monitoring | CPT/HCPCS: 85610; 99211 ==

== ENCOUNTER 2023-06-13 10:21 | Outpatient (AMB) | payer MEDICARE, SELFPAY ==
--- NOTE | 2023-06-13 10:32 | MHC.OFFVISCO ---
Intake Intake Visit Reasons: Anticoagulation Allergies indomethacin [From INDOCIN] Allergy (Intermediate, Verified 06/13/23 10:26) RASH oxycodone [OXYCODONE] Allergy (Intermediate, Verified 06/13/23 10:26) VOMITING/RASH Sulfa (Sulfonamide Antibiotics) [SULFA (SULFONAMIDE ANTIBIOTICS)] Allergy (Intermediate, Verified 06/13/23 10:26) BLISTERS, sore on the end of his penis acetaminophen [Percocet] Adverse Reaction (Unknown, Verified 06/13/23 10:26) vomiting Medication List - Last Reconciled 06/13/23 by Iesla Lozano RN acetaminophen ER 650 mg PO DAILY atorvastatin 1 tab PO DAILY cholecalciferol (vitamin D3) 25 mcg PO DAILY lorazepam 0.5 mg PO DAILY PRN omeprazole 1 cap PO DAILY paroxetine HCl 40 mg PO DAILY propranolol ER 1 cap PO DAILY pyridoxine (vitamin B6) 100 mg PO DAILY tamsulosin 0.4 mg PO BEDTIME warfarin 1 tab See Protocol PO DAILY Nursing Note INR 3.4-? out of therapeutic range of 2-3 Medications and supplements reviewed Patient status: pt needs carpal tunnel surg and cataract surg- not scheduled Medications or supplements: no changes Diet: same Denies any signs and symptoms of bleeding or clotting or unusual bruising Bleeding, bruising, clotting discussed Nutritional guidance given: eat greens Dose: [hold today then 5mg x 2, 2.5mg x 5 F/U INR Date : 2 weeks?? Patient verbalizing understanding of instructions given. Anti-Coag Initial Assessment Social Hx Patient Tobacco Use Status: Former Tobacco user Quit Date: 1989 Tobacco use type: Cigarette Alcohol intake frequency: former alcohol drinker Cardiovascular Hx: HTN, Arrhythmias and Varicose Veins Musculoskeletal Hx: Arthritis GI Hx: Other (GERD) Neurological Hx: Epilepsy/Seizures Cancer HX: No Psych. 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
== END 2023-06-13 10:40 | disposition home or self-care (01) ==
LOC: HO.ACS 10:21
PROVIDERS: PCP Internal Medicine Medical Oncology; Visit Provider Internal Medicine
DX: Z79.01 Long term (current) use of anticoagulants (principal)

== ENCOUNTER → 2023-06-13 10:21 | Outpatient (BNVA) | payer MEDICARE, SELFPAY | PROVIDERS: PCP Internal Medicine Medical Oncology; Visit Provider Internal Medicine | DX: I48.20 Chronic atrial fibrillation, unspecified (principal); Z79.01 Long term (current) use of anticoagulants; Z51.81 Encounter for therapeutic drug level monitoring | CPT/HCPCS: 85610; 99211 ==

== ENCOUNTER 2023-06-27 10:35 | Outpatient (AMB) | payer MEDICARE, SELFPAY ==
[2023-06-27 10:40] LABS: Prothrombin Time Whole Bld POC 28.6 sec (11.1-13.5); ~PT, ~INR - Anti Coag Clinic 2.4 (0.9-1.1)
--- NOTE | 2023-06-27 10:43 | MHC.OFFVISCO ---
Intake Intake Visit Reasons: Anticoagulation Allergies indomethacin [From INDOCIN] Allergy (Intermediate, Verified 06/27/23 10:36) RASH oxycodone [OXYCODONE] Allergy (Intermediate, Verified 06/27/23 10:36) VOMITING/RASH Sulfa (Sulfonamide Antibiotics) [SULFA (SULFONAMIDE ANTIBIOTICS)] Allergy (Intermediate, Verified 06/27/23 10:36) BLISTERS, sore on the end of his penis acetaminophen [Percocet] Adverse Reaction (Unknown, Verified 06/27/23 10:36) vomiting Medication List - Last Reconciled 06/27/23 by Dena Wetzel RN acetaminophen ER 650 mg PO DAILY atorvastatin 1 tab PO DAILY cholecalciferol (vitamin D3) 25 mcg PO DAILY lorazepam 0.5 mg PO DAILY PRN omeprazole 1 cap PO DAILY paroxetine HCl 40 mg PO DAILY propranolol ER 1 cap PO DAILY pyridoxine (vitamin B6) 100 mg PO DAILY tamsulosin 0.4 mg PO BEDTIME warfarin 1 tab See Protocol PO DAILY Nursing Note NO CP,SOB,DIET/MED CHANGES,FALLS OR SX OF BLEEDING. CONTINUE PRESENT DOSE AND FOLLOW-UP IN 3 WEEKS. GOOD UNDERSTANDING OF DOSING INSTR. Anti-Coag Initial Assessment Social Hx Patient Tobacco Use Status: Former Tobacco user Quit Date: 1989 Tobacco use type: Cigarette Alcohol intake frequency: former alcohol drinker Cardiovascular Hx: HTN, Arrhythmias and Varicose Veins Musculoskeletal Hx: Arthritis GI Hx: Other (GERD) Neurological Hx: Epilepsy/Seizures Cancer HX: No Psych. Illness/Depression: Yes (DEPRESSION) Coding Level of Care Code Est Patient Level 1 Diagnoses Current use of anticoagulant therapy Z79.01 Results AMB INR Fingerstick AMB INR Fingerstick 2.4 Last Edit by Dena Wetzel RN on 06/27/23 10:41 Assessment & Plan Assessment & Plan (1) Current use of anticoagulant therapy: Code(s): Z79.01 - assisted (current) use of anticoagulants Category: Medical
== END 2023-06-27 10:45 | disposition home or self-care (01) ==
LOC: HO.ACS 10:35
PROVIDERS: PCP Internal Medicine Medical Oncology; Visit Provider Internal Medicine
DX: Z79.01 Long term (current) use of anticoagulants (principal)

== ENCOUNTER → 2023-06-27 10:35 | Outpatient (BNVA) | payer MEDICARE, SELFPAY | PROVIDERS: PCP Internal Medicine Medical Oncology; Visit Provider Internal Medicine | DX: I48.20 Chronic atrial fibrillation, unspecified (principal); Z79.01 Long term (current) use of anticoagulants; Z51.81 Encounter for therapeutic drug level monitoring | CPT/HCPCS: 85610; 99211 ==

== ENCOUNTER 2023-07-18 10:08 | Outpatient (AMB) | payer MEDICARE, SELFPAY ==
--- NOTE | 2023-07-18 10:18 | MHC.OFFVISCO ---
Intake Intake Visit Reasons: Anticoagulation Allergies indomethacin [From INDOCIN] Allergy (Intermediate, Verified 07/18/23 10:10) RASH oxycodone [OXYCODONE] Allergy (Intermediate, Verified 07/18/23 10:10) VOMITING/RASH Sulfa (Sulfonamide Antibiotics) [SULFA (SULFONAMIDE ANTIBIOTICS)] Allergy (Intermediate, Verified 07/18/23 10:10) BLISTERS, sore on the end of his penis acetaminophen [Percocet] Adverse Reaction (Unknown, Verified 07/18/23 10:10) vomiting Medication List - Last Reconciled 07/18/23 by Luci Connor, RN acetaminophen ER 650 mg PO DAILY atorvastatin 1 tab PO DAILY cholecalciferol (vitamin D3) 25 mcg PO DAILY lorazepam 0.5 mg PO DAILY PRN omeprazole 1 cap PO DAILY paroxetine HCl 40 mg PO DAILY propranolol ER 1 cap PO DAILY pyridoxine (vitamin B6) 100 mg PO DAILY tamsulosin 0.4 mg PO BEDTIME warfarin 1 tab See Protocol PO DAILY Nursing Note INR: 2.7 in therapeutic range - no nose bleeds Medications and supplements reviewed No changes in health, diet, medications, or supplements, Denies any signs and symptoms of bleeding or bruising or clotting. Bleeding, bruising, clotting discussed Nutritional guidance given Dose: keep same 5mg x 2 days/ 2.5mg x 5 days F/U INR: 3 weeks Patient verbalizes understanding of instructions given Anti-Coag Initial Assessment Social Hx Patient Tobacco Use Status: Former Tobacco user Quit Date: 1989 Tobacco use type: Cigarette Alcohol intake frequency: former alcohol drinker Cardiovascular Hx: HTN, Arrhythmias and Varicose Veins Musculoskeletal Hx: Arthritis GI Hx: Other (GERD) Neurological Hx: Epilepsy/Seizures Cancer HX: No Psych. Illness/Depression: Yes (DEPRESSION) Coding Level of Care Code Est Patient Level 1 Diagnoses Current use of anticoagulant therapy Z79.01 Results AMB INR Fingerstick AMB INR Fingerstick 2.7 Last Edit by Luci Connor RN on 07/18/23 10:17 interface failure Assessment & Plan Assessment & Plan (1) Current use of anticoagulant therapy: Code(s): Z79.01 - [facility] (current) use of anticoagulants Category: Medical
[2023-07-18 11:17] LABS: Prothrombin Time Whole Bld POC 31.9 sec (11.1-13.5); ~PT, ~INR - Anti Coag Clinic 2.7 (0.9-1.1)
== END 2023-07-18 10:22 | disposition home or self-care (01) ==
LOC: HO.ACS 10:08
PROVIDERS: PCP Internal Medicine Medical Oncology; Visit Provider Internal Medicine
DX: Z79.01 Long term (current) use of anticoagulants (principal)

== ENCOUNTER → 2023-07-18 10:08 | Outpatient (BNVA) | payer MEDICARE, SELFPAY | PROVIDERS: PCP Internal Medicine Medical Oncology; Visit Provider Internal Medicine | DX: I48.20 Chronic atrial fibrillation, unspecified (principal); Z79.01 Long term (current) use of anticoagulants; Z51.81 Encounter for therapeutic drug level monitoring | CPT/HCPCS: 85610; 99211 ==

== ENCOUNTER 2023-08-08 10:07 | Outpatient (AMB) | payer MEDICARE, SELFPAY ==
[2023-08-08 10:24] LABS: Prothrombin Time Whole Bld POC 34.5 sec (11.1-13.5); ~PT, ~INR - Anti Coag Clinic 2.9 (0.9-1.1)
--- NOTE | 2023-08-08 10:27 | MHC.OFFVISCO ---
Intake Intake Visit Reasons: Anticoagulation Allergies indomethacin [From INDOCIN] Allergy (Intermediate, Verified 08/08/23 10:17) RASH oxycodone [OXYCODONE] Allergy (Intermediate, Verified 08/08/23 10:17) VOMITING/RASH Sulfa (Sulfonamide Antibiotics) [SULFA (SULFONAMIDE ANTIBIOTICS)] Allergy (Intermediate, Verified 08/08/23 10:17) BLISTERS, sore on the end of his penis acetaminophen [Percocet] Adverse Reaction (Unknown, Verified 08/08/23 10:17) vomiting Nursing Note INR: 2.9 in therapeutic range 2-3 Medications and supplements reviewed Paroxetine dose has increased No changes in health, diet, or supplements, Denies any signs and symptoms of bleeding or bruising or clotting. Bleeding, bruising, clotting discussed Nutritional guidance given Dose: cont same dose of 5mg X 2 days and 2.5mg X 5 days F/U INR: 1 month Patient verbalizes understanding of instructions given Anti-Coag Initial Assessment Social Hx Patient Tobacco Use Status: Former Tobacco user Quit Date: 1989 Tobacco use type: Cigarette Alcohol intake frequency: former alcohol drinker Cardiovascular Hx: HTN, Arrhythmias and Varicose Veins Musculoskeletal Hx: Arthritis GI Hx: Other (GERD) Neurological Hx: Epilepsy/Seizures Cancer HX: No Psych. 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
== END 2023-08-08 10:32 | disposition home or self-care (01) ==
LOC: HO.ACS 10:07
PROVIDERS: PCP Internal Medicine Medical Oncology; Visit Provider Internal Medicine
DX: Z79.01 Long term (current) use of anticoagulants (principal)

== ENCOUNTER → 2023-08-08 10:07 | Outpatient (BNVA) | payer MEDICARE, SELFPAY | PROVIDERS: PCP Internal Medicine Medical Oncology; Visit Provider Internal Medicine | DX: I48.20 Chronic atrial fibrillation, unspecified (principal); Z79.01 Long term (current) use of anticoagulants; Z51.81 Encounter for therapeutic drug level monitoring | CPT/HCPCS: 85610; 99211 ==

== ENCOUNTER 2023-08-28 08:37 | Outpatient (REF) | payer MEDICARE, SELFPAY ==
[2023-08-28 08:51] LABS: MANUAL DIFF FLAG NO
[2023-08-28 09:25] LABS: Basophils Absolute Auto 0.1 X10*3/uL (0.0-0.2); Basophils Percent Auto 0.8 % (0-2); Eosinophils Absolute Auto 0.5 X10*3/uL (0.0-0.4); Eosinophils Percent Auto 7.4 % (0-4); Hematocrit 39.7 % (42.0-52.0); Hemoglobin 13.2 g/dl (14.0-18.0); Imm Gran Abs Auto 0.02 X10*3/uL (0.00-0.03); Imm Gran Pct Auto 0.3 % (0.0-0.4); Lymphocytes Absolute Auto 0.9 X10*3/uL (1.2-4.9); Lymphocytes Percent Auto 14.1 % (20-40); Mean Corpuscular HGB Conc 33.2 g/dl (31.0-36.0); Mean Corpuscular Hemoglobin 29.3 pg (27.0-33.0); Mean Corpuscular Volume 88.2 fL (80.0-98.0); Monocytes Absolute Auto 0.7 X10*3/uL (0.1-1.2); Monocytes Percent Auto 10.6 % (2-11); Neutrophils Absolute Auto 4.4 x10*3/uL (2.0-8.3); Neutrophils Percent Auto 66.8 % (45-73); Platelet Count 315 X10*3/uL (160-400); Red Cell Distribution Width 12.7 % (11.0-16.0); White Blood Count 6.5 X10*3/uL (4.8-10.8)
[2023-08-28 10:10] LABS: Alanine Aminotransferase 18 U/L (0-40); Albumin Level 3.9 g/dL (3.5-5.0); Alkaline Phosphatase 101 U/L (39-117); Anion Gap 12 (12-20); Aspartate Amino Transferase 19 U/L (5-37); Bilirubin Total 1.7 mg/dL (0.0-1.0); Blood Urea Nitrogen 12 mg/dL (9-16); Calcium 9.3 mg/dL (8.4-10.2); Carbon Dioxide 27 mmol/L (22-29); Chloride 106 mmol/L (96-108); Cholesterol 121 mg/dL (<200); Estimated Glomerular Filt Rate > 60; Glucose Fasting 101 mg/dL (60-99); HDL Cholesterol 39 mg/dL (>40); LDL Cholesterol Calculated 53 mg/dL (<100); Sodium 141 mmol/L (135-145); Total Protein 7.2 g/dL (6.5-8.0); Triglycerides 149 mg/dL (<150)
== END 2023-08-28 08:38 | disposition home or self-care (01) ==
LOC: HO.LAB 08:37
PROVIDERS: PCP Internal Medicine Medical Oncology; Visit Provider Internal Medicine Medical Oncology
DX: I10 Essential (primary) hypertension (principal); E78.5 Hyperlipidemia, unspecified; E66.3 Overweight
CPT/HCPCS: 36415; 80053; 80061; 85025

== ENCOUNTER 2023-09-06 10:09 | Outpatient (AMB) | payer MEDICARE, SELFPAY ==
[2023-09-06 10:17] LABS: Prothrombin Time Whole Bld POC 35.5 sec (11.1-13.5)
--- NOTE | 2023-09-06 10:19 | MHC.OFFVISCO ---
Intake Intake Visit Reasons: Anticoagulation Allergies indomethacin [From INDOCIN] Allergy (Intermediate, Verified 09/06/23 10:12) RASH oxycodone [OXYCODONE] Allergy (Intermediate, Verified 09/06/23 10:12) VOMITING/RASH Sulfa (Sulfonamide Antibiotics) [SULFA (SULFONAMIDE ANTIBIOTICS)] Allergy (Intermediate, Verified 09/06/23 10:12) BLISTERS, sore on the end of his penis acetaminophen [Percocet] Adverse Reaction (Unknown, Verified 09/06/23 10:12) vomiting Medication List - Last Reconciled 09/06/23 by Mya Lozada RN acetaminophen ER 650 mg PO DAILY atorvastatin 1 tab PO DAILY cholecalciferol (vitamin D3) 25 mcg PO DAILY lorazepam 0.5 mg PO DAILY PRN omeprazole 1 cap PO DAILY paroxetine HCl 40 mg PO DAILY paroxetine HCl 10 mg PO DAILY propranolol ER 1 cap PO DAILY pyridoxine (vitamin B6) 100 mg PO DAILY tamsulosin 0.4 mg PO BEDTIME warfarin 1 tab See Protocol PO DAILY Nursing Note Amb to [facility] feeling ok Medications and supplements reviewed No changes in health, diet, medications, or supplements sts no longer getting meals on wheels sts he never knew what time thety were coming and often when they rang the crowder he was not able to get down the stairs and they would not leave the meal sts he is making TV dinners for himself now and goes to [facility] for lunches Denies any unusual signs and symptoms of bruising, bleeding Denies any new Chest pain, SOB, or clotting INR:3.0 top of therapeutic range Nutritional guidance given: try to get a green in today then balance greens and reds in diet, reviewed food lists Dose: continue usual dosing;5mg x 2 days and 2.5mg x 5 days F/U INR: 1 month Patient verbalizes understanding of instructions given with accurate read back/ teach back of dosing Anti-Coag Initial Assessment Social Hx Patient Tobacco Use Status: Former Tobacco user Quit Date: 1989 Tobacco use type: Cigarette Alcohol intake frequency: former alcohol drinker Cardiovascular Hx: HTN, Arrhythmias and Varicose Veins Musculoskeletal Hx: Arthritis GI Hx: Other (GERD) Neurological Hx: Epilepsy/Seizures Cancer HX: No Psych. Illness/Depression: Yes (DEPRESSION) Coding Level of Care Code Est Patient Level 1 Diagnoses Current use of anticoagulant therapy Z79.01 Time Spent (min) 15 Assessment & Plan Assessment & Plan (1) Current use of anticoagulant therapy: Code(s): Z79.01 - correction (current) use of anticoagulants Category: Medical
== END 2023-09-06 10:35 | disposition home or self-care (01) ==
LOC: HO.ACS 10:09
PROVIDERS: PCP Internal Medicine Medical Oncology; Visit Provider Internal Medicine
DX: Z79.01 Long term (current) use of anticoagulants (principal)

== ENCOUNTER → 2023-09-06 10:09 | Outpatient (BNVA) | payer MEDICARE, SELFPAY | PROVIDERS: PCP Internal Medicine Medical Oncology; Visit Provider Internal Medicine | DX: I48.20 Chronic atrial fibrillation, unspecified (principal); Z79.01 Long term (current) use of anticoagulants; Z51.81 Encounter for therapeutic drug level monitoring | CPT/HCPCS: 85610; 99211 ==

== ENCOUNTER 2023-09-10 15:02 | Observation (INO) | payer MEDICARE, SELFPAY ==
--- NOTE | ~2023-09-10 | CT_ITS ---
EXAMINATION: CT ANGIOGRAM HEAD CT ANGIOGRAM NECK CLINICAL INFORMATION: Reason for Exam ? tia COMPARISON: CT head without contrast 09/10/2023 TECHNIQUE: Initial noncontrast cafeteria helper imaging of the head and neck was performed. Noncontrast head CT was also performed. Test bolus sequences followed by intravenous administration 70 mL of Omnipaque 350. Helical imaging was performed in the axial plane from the aortic arch to the skull vertex. Delayed postcontrast imaging of the head was also performed. The data was processed at the technologist infectious disease workstation for generation of MIP sequences. Angled MIPs and volume rendered reformatted images were also generated at an offline 3D workstation. Stenoses are assessed in accordance with NASCET criteria unless otherwise indicated. DLP: 2413.61 mGy-cm This CT examination was performed using dose optimization techniques as appropriate, variously including the following: *Automated exposure control. *Adjustment of mA and/or kV according to patient size (this includes techniques or standardized protocols for targeted exams where dose is matched to indication/reason for exam; i.e. extremities or head). *Use of iterative reconstruction technique. FINDINGS: CT Head: There is no evidence of acute intracranial hemorrhage or edematous territorial infarction. A few foci of hypoattenuation in the periventricular and deep white matter are consistent with mild microangiopathy. Chronic right basal ganglia lacunar infarct versus enlarged perivascular space. Wetzel-white matter differentiation is preserved. Proportional prominence of the ventricles and sulcal spaces. No evidence for obstructive hydrocephalus. No abnormal mass effect or midline shift. No extra-axial fluid collections. No pathologic intra-axial enhancement or regional oligemia. No acute soft tissue or osseous abnormalities. The mastoid air cells and paranasal sinuses are clear. CT Neck: The thyroid gland and remaining cervical soft tissues are within normal limits. Multilevel cervical spondylosis. CT Upper Chest: The visualized lung apices and upper mediastinum are within normal limits. Neck CTA: Aortic Arch: Normal contour and caliber. Classic 3 vessel branching pattern of the aortic arch. Great Vessel Origins: No significant stenosis of the branch origins. Right Common Carotid Artery: No focal stenosis or occlusion. Cervical Right Internal Carotid Artery: Mild calcific atherosclerotic disease of the carotid bulb and proximal internal carotid artery without flow-limiting stenosis. Left Common Carotid Artery: No focal stenosis or occlusion. Cervical Left Internal Carotid Artery: Mild calcific atherosclerotic disease of the carotid bulb and proximal internal carotid artery without flow-limiting stenosis. Cervical Right Vertebral Artery: No focal stenosis or occlusion. Cervical Left Vertebral Artery: No focal stenosis or occlusion. Brain CTA: Intracranial Internal Carotid Arteries: No focal stenosis or occlusion. Right Anterior Cerebral Artery: Normal A1 segment. Normal opacification of the distal CAREN segments. Left Anterior Cerebral Artery: Normal A1 segment. Normal opacification of the distal CAREN segments. Anterior Communicating Artery: Normal. Right Middle Cerebral Artery: Normal M1 segment of the MCA without focal stenosis or occlusion. Normal arborization of the distal segments. Left Middle Cerebral Artery: Normal M1 segment of the MCA without focal stenosis or occlusion. Normal arborization of the distal segments. Right Vertebral Artery: Normal V4 segment. Left Vertebral Artery: Normal V4 segment. Basilar Artery: Normal without focal stenosis or occlusion. Normal appearance of the proximal superior cerebellar arteries. Right Posterior Cerebral Artery: Normal P1 segment. Normal opacification of the distal TARIFF COUNSEL segments. Left Posterior Cerebral Artery: Normal P1 segment. Normal opacification of the distal TARIFF COUNSEL segments. Normal opacification of the superior sagittal, straight, transverse, and sigmoid sinuses. CT/CT angio head neck IMPRESSION: 1. No acute intracranial abnormality including hemorrhage, mass effect, hydrocephalus, or acute territorial edematous infarction. 2. No arterial high grade stenosis or large vessel occlusion in the head or neck.
--- NOTE | ~2023-09-10 | MR_ITS ---
EXAMINATION: MR BRAIN WITHOUT CONTRAST CLINICAL INFORMATION: Speech difficulty. COMPARISON: CTA head and neck from 09/11/2023. TECHNIQUE: MRI of the brain was obtained using routine sequences without contrast. FINDINGS: No focal restricted diffusion is demonstrated to suggest acute or subacute cerebral ischemia. No evidence of acute or chronic hemorrhagic products on heme-sensitive imaging. Scattered and partially confluent periventricular, deep white matter, and brainstem T2 FLAIR hyperintensities consistent with moderate underlying microangiopathy. Proportional prominence of the ventricles and sulcal spaces without evidence of obstructive hydrocephalus. No abnormal mass effect. No midline shift. Normal appearance of the pituitary gland. Normal positioning of the cerebellar tonsils. Normal arterial and venous vascular flow voids are present. Normal, homogeneous marrow signal. 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 Mild mucosal thickening of the paranasal sinuses. No signal abnormalities within the mastoids. MR/MR head/brain wo con IMPRESSION: 1. No acute intracranial abnormalities. 2. Moderate underlying microangiopathy and generalized cerebral volume loss.
--- NOTE | ~2023-09-10 | CT_ITS ---
EXAMINATION: CT HEAD WITHOUT CONTRAST CLINICAL INFORMATION: Headache since months. COMPARISON: CT head without contrast 02/22/2022. TECHNIQUE: Contiguous axial imaging was performed from the skull base to vertex without intravenous administration of contrast. This CT examination was performed using dose optimization techniques as appropriate, variously including the following: *Automated exposure control *Adjustment of mA and/or kV according to patient size (this includes techniques or standardized protocols for targeted exams where dose is matched to indication/reason for exam; i.e. extremities or head) *Use of iterative reconstruction technique DLP: 838 mGy-cm FINDINGS: There is no evidence of acute intracranial hemorrhage or edematous territorial infarction. The ventricles and cortical sulci are proportional with mild volume loss. No mass effect, midline shift or extra-axial collection. Patchy hypodensities in the subcortical and periventricular white matter likely compatible with mild chronic microangiopathic changes. Again noted remote infarct within the right caudate. Mucous retention cyst within the frontal sinuses and right compartment of sphenoid sinuses. Included paranasal sinuses and mastoids are well-aerated. No acute osseous or soft tissue abnormality. Again noted partially empty sella. CT/CT head/brain wo IV con IMPRESSION: 1. No acute intracranial pathology. 2. Mild volume loss and chronic microangiopathic changes. Remote lacunar infarct in the right basal ganglia.
[2023-09-10 15:05] VITALS: BP 157/86; PULSE 80; RESP 16; TEMP 36.4; O2SAT 99; BMI 22.4
--- NOTE | 2023-09-10 15:07 | ED_ITS ---
HPI - General Adult General Chief complaint: Dizziness Stated complaint: dizzy spells, pain in back of head Time Seen by Provider: 09/10/23 22:55 Related Data Home Medications Medication Instructions Recorded Confirmed atorvastatin 40 mg tablet 1 tab PO DAILY 08/01/22 09/06/23 omeprazole 20 mg capsule,delayed 1 cap PO DAILY 08/01/22 09/06/23 release propranolol 60 mg capsule,24 1 cap PO DAILY 08/01/22 09/06/23 hr,extended release warfarin 2.5 mg tablet 1 tab PO DAILY 08/07/22 09/06/23 cholecalciferol (vitamin D3) 25 25 mcg PO DAILY 08/17/22 09/06/23 mcg (1,000 unit) tablet acetaminophen 650 mg 650 mg PO DAILY 09/05/22 09/06/23 tablet,extended release paroxetine HCl 40 mg tablet 40 mg PO DAILY 10/18/22 09/06/23 lorazepam 0.5 mg tablet 0.5 mg PO DAILY PRN anxiety 01/15/23 09/06/23 paroxetine HCl 10 mg tablet 10 mg PO DAILY 08/08/23 09/06/23 Previous Rx's Medication Instructions Recorded pyridoxine (vitamin B6) 100 mg 100 mg PO DAILY #90 tabs 09/28/22 tablet tamsulosin 0.4 mg capsule 0.4 mg PO BEDTIME #90 caps 01/26/23 Allergies Allergy/AdvReac Type Severity Reaction Status Date / Time indomethacin [From INDOCIN] Allergy Intermediate RASH Verified 09/06/23 10:12 oxycodone [OXYCODONE] Allergy Intermediate VOMITING/RA Verified 09/06/23 10:12 SH Sulfa (Sulfonamide Allergy Intermediate BLISTERS, Verified 09/06/23 10:12 Antibiotics) sore on [SULFA (SULFONAMIDE the end of ANTIBIOTICS)] his penis acetaminophen [Percocet] AdvReac Unknown vomiting Verified 09/06/23 10:12 [facility] Past Medical History Medical History Mild mitral valve regurgitation Tubular adenoma Cardiac ischemia Rotator cuff tear arthropathy of both shoulders Depression Anxiety GERD (gastroesophageal reflux disease) Hyperlipidemia Hypertension CAD (coronary artery disease) Left rib fracture Right rib fracture History of COVID-19 Lung nodule Current use of anticoagulant therapy A-fib (~02/2022) Recurrent UTI (urinary tract infection) BPH w urinary obs/LUTS Osteoarthritis of left knee Surgical History History of suprapubic catheter History of appendectomy History of cardiac cath History of cystoscopy History of colonoscopy History of lithotripsy History of prostate surgery History of total right knee replacement Family History Family History Mother No problems noted. Father No problems noted. Social History Social History Household Members: None Housing: House Do you presently have visiting nurse or other home services: No Patient Tobacco Use Status: Former Tobacco user Quit Date: 1989 Tobacco use type: Cigarette Years Smoked: 20 Advance Directives: Yes Advance Directives on File: Yes Advance Directives Date on File: 02/28/22 service: Yes Current occupational status: retired Current occupation: [employer] - right handed Current occupational exposures/hazards: No Physical Exam ED Vital Signs: Vital Signs - 24 hr 09/10/23 15:05 09/11/23 00:36 09/11/23 00:37 Temperature 97.5 F Pulse Rate 80 65 78 Respiratory Rate 16 Blood Pressure 157/86 H 152/91 H 142/89 H Pulse Oximetry 99 Oxygen Delivery Method Room Air 09/11/23 00:37 09/11/23 00:38 Temperature 97.7 F Pulse Rate 78 78 Respiratory Rate 18 Blood Pressure 132/71 142/89 H Pulse Oximetry 98 Oxygen Delivery Method Room Air BMI result Body Mass Index 22.4 Course Course Course Narrative: This is a rapid medical exam: Additional HPI, ROS, PE not included below will be deferred to primary provider. Patient is a 78-year-old male presenting to the ED with episodes where he is unable to speak, feels lightheaded, pain to left posterior head. Has been ongoing for months. Referred here by PCP. Plan: CT head Medical Decision Making Lab Data 09/10/23 22:22 09/10/23 22:22 Labs: Lab Results 09/10/23 Range/Units 22:22 WBC 5.2 (4.8-10.8) X10*3/uL RBC 4.66 (4.60-5.80) X10*6/uL Hgb 13.6 L (14.0-18.0) g/dl Hct 41.1 L (42.0-52.0) % MCV 88.2 (80.0-98.0) fL MCH 29.2 (27.0-33.0) pg MCHC 33.1 (31.0-36.0) g/dl RDW 13.1 (11.0-16.0) % Plt Count 281 (160-400) X10*3/uL MPV 9.5 (9.4-12.4) fL Immature Gran % (Auto) 0.2 (0.0-0.4) % Neut % (Auto) 54.0 (45-73) % Lymph % (Auto) 24.9 (20-40) % [place] % (Auto) 11.2 H (2-11) % Eos % (Auto) 8.9 H (0-4) % Baso % (Auto) 0.8 (0-2) % Lymph # (Auto) 1.3 (1.2-4.9) X10*3/uL [place] # (Auto) 0.6 (0.1-1.2) X10*3/uL Eos # (Auto) 0.5 H (0.0-0.4) X10*3/uL Baso # (Auto) 0.0 (0.0-0.2) X10*3/uL Abs Immat Gran (auto) 0.01 (0.00-0.03) X10*3/uL Absolute Neuts (auto) 2.8 (2.0-8.3) x10*3/uL Absolute Nucleated RBC 0.000 (0.0-0.012) X10*3/uL Nucleated RBC % (auto) 0.0 (0.0-0.2) /100WBC PT 29.1 H (11.1-13.3) SEC INR 2.4 H (0.9-1.1) Sodium 141 (135-145) mmol/L Potassium 4.5 (3.3-5.1) mmol/L Chloride 108 (96-108) mmol/L Carbon Dioxide 27 (22-29) mmol/L Anion Gap 11 L (12-20) BUN 13 (9-16) mg/dL Creatinine 0.84 (0.5-1.4) mg/dL Estim Creat Clear Calc 81.5 Estimated GFR > 60 Random Glucose 103 (60-115) mg/dL Calcium 9.6 (8.4-10.2) mg/dL Total Bilirubin 0.9 (0.0-1.0) mg/dL Direct Bilirubin 0.3 (0.0-0.5) mg/dL AST 22 (5-37) U/L ALT 19 (0-40) U/L Alkaline Phosphatase 91 (39-117) U/L Troponin I High Sens 4.8 D (<3.5-35.0) ng/L Total Protein 7.4 (6.5-8.0) g/dL Albumin 4.0 (3.5-5.0) g/dL Ethyl Alcohol < 10 mg/dL Discharge Plan Discharge Clinical Impression: A-fib, Seizure, Brain TIA Patient Disposition: Admitted As Inpatient
--- NOTE | 2023-09-10 22:08 | ECG_ITS ---
Test Reason : AFIB Blood Pressure : / mmHG Vent. Rate : 057 BPM Atrial Rate : 000 BPM P-R Int : 000 ms QRS Dur : 130 ms QT Int : 438 ms P-R-T Axes : 000 096 016 degrees QTc Int : 426 ms Atrial fibrillation with slow ventricular response Right bundle branch block Abnormal ECG When compared with ECG of 01-AUG-2022 23:41, Vent. rate has decreased BY 39 BPM Referred By: Tessa Du Electronically Signed By:FRED FOURNIER MD
[2023-09-10 22:28] LABS: MANUAL DIFF FLAG NO
[2023-09-10 22:30] LABS: Basophils Percent Auto 0.8 % (0-2); Eosinophils Absolute Auto 0.5 X10*3/uL (0.0-0.4); Eosinophils Percent Auto 8.9 % (0-4); Hematocrit 41.1 % (42.0-52.0); Hemoglobin 13.6 g/dl (14.0-18.0); Imm Gran Abs Auto 0.01 X10*3/uL (0.00-0.03); Imm Gran Pct Auto 0.2 % (0.0-0.4); Lymphocytes Absolute Auto 1.3 X10*3/uL (1.2-4.9); Lymphocytes Percent Auto 24.9 % (20-40); Mean Corpuscular HGB Conc 33.1 g/dl (31.0-36.0); Mean Corpuscular Hemoglobin 29.2 pg (27.0-33.0); Mean Corpuscular Volume 88.2 fL (80.0-98.0); Mean Platelet Volume 9.5 fL (9.4-12.4); Monocytes Absolute Auto 0.6 X10*3/uL (0.1-1.2); Monocytes Percent Auto 11.2 % (2-11); Neutrophils Absolute Auto 2.8 x10*3/uL (2.0-8.3); Platelet Count 281 X10*3/uL (160-400); Red Blood Count 4.66 X10*6/uL (4.60-5.80); Red Cell Distribution Width 13.1 % (11.0-16.0); White Blood Count 5.2 X10*3/uL (4.8-10.8)
[2023-09-10 22:41] LABS: Ethanol < 10 mg/dL
[2023-09-10 22:44] LABS: Alanine Aminotransferase 19 U/L (0-40); Alkaline Phosphatase 91 U/L (39-117); Anion Gap 11 (12-20); Aspartate Amino Transferase 22 U/L (5-37); Bilirubin Direct 0.3 mg/dL (0.0-0.5); Bilirubin Total 0.9 mg/dL (0.0-1.0); Blood Urea Nitrogen 13 mg/dL (9-16); Calcium 9.6 mg/dL (8.4-10.2); Carbon Dioxide 27 mmol/L (22-29); Chloride 108 mmol/L (96-108); Creatinine Clr Calc Pharmacy 81.5; Estimated Glomerular Filt Rate > 60; Glucose Random 103 mg/dL (60-115); INTERNATIONAL NORM RATIO 2.4 (0.9-1.1); Potassium 4.5 mmol/L (3.3-5.1); Prothrombin Time 29.1 SEC (11.1-13.3); Sodium 141 mmol/L (135-145); Total Protein 7.4 g/dL (6.5-8.0)
[2023-09-10 22:51] LABS: Troponin-I High Sensitivity 4.8 ng/L (<3.5-35.0)
[2023-09-11] VITALS (11 sets, daily range): BP systolic 101–160; BP diastolic 70–91; PULSE 64–82; RESP 12–18; TEMP 36.5–37.1; O2SAT 95–98
--- NOTE | 2023-09-11 00:39 | MHC.EDTECH ---
Patient changed into hospital attire,placed on the cardiac tech,ortho static vitals taken and awaiting for a urine at this time. call crowder in reach
--- NOTE | 2023-09-11 00:49 | ED.DIZZY ---
HPI - Dizziness General Chief Complaint: Dizziness Stated Complaint: dizzy spells, pain in back of head Time Seen by Provider: 09/10/23 22:55 History of Present Illness HPI Narrative: Patient is a 78-year-old male presented today with having episodes difficulty in speech. During those times patient's feels clumsy. These episodes comes and goes. Lasted about 5 minutes. Patient had about 3 episodes today. These episodes may have been coming on more frequently. There has no specific trigger. He has a history of atrial fibrillation in the past. Currently on Coumadin. Patient claims compliance with medication. Contacted his primary physician was sent to the emergency department for further evaluation. No fever no chills no chest pain or shortness of breath. No focal weakness currently. Patient is from home. History of coronary artery disease. Related Data Home Medications Medication Instructions Recorded Confirmed atorvastatin 40 mg tablet 1 tab PO DAILY 08/01/22 09/06/23 omeprazole 20 mg capsule,delayed 1 cap PO DAILY 08/01/22 09/06/23 release propranolol 60 mg capsule,24 1 cap PO DAILY 08/01/22 09/06/23 hr,extended release warfarin 2.5 mg tablet 1 tab PO DAILY 08/07/22 09/06/23 cholecalciferol (vitamin D3) 25 25 mcg PO DAILY 08/17/22 09/06/23 mcg (1,000 unit) tablet acetaminophen 650 mg 650 mg PO DAILY 09/05/22 09/06/23 tablet,extended release paroxetine HCl 40 mg tablet 40 mg PO DAILY 10/18/22 09/06/23 lorazepam 0.5 mg tablet 0.5 mg PO DAILY PRN anxiety 01/15/23 09/06/23 paroxetine HCl 10 mg tablet 10 mg PO DAILY 08/08/23 09/06/23 Previous Rx's Medication Instructions Recorded pyridoxine (vitamin B6) 100 mg 100 mg PO DAILY #90 tabs 09/28/22 tablet tamsulosin 0.4 mg capsule 0.4 mg PO BEDTIME #90 caps 01/26/23 Allergies Allergy/AdvReac Type Severity Reaction Status Date / Time indomethacin [From INDOCIN] Allergy Intermediate RASH Verified 09/06/23 10:12 oxycodone [OXYCODONE] Allergy Intermediate VOMITING/RA Verified 09/06/23 10:12 SH Sulfa (Sulfonamide Allergy Intermediate BLISTERS, Verified 09/06/23 10:12 Antibiotics) sore on [SULFA (SULFONAMIDE the end of ANTIBIOTICS)] his penis acetaminophen [Percocet] AdvReac Unknown vomiting Verified 09/06/23 10:12 Review of Systems Review of Systems: No fever no chills no diaphoresis Yes all other systems are reviewed and are negative [facility] Past Medical History Attestation statement: The following information was validated with the patient. Medical History Mild mitral valve regurgitation Tubular adenoma Cardiac ischemia Rotator cuff tear arthropathy of both shoulders Depression Anxiety GERD (gastroesophageal reflux disease) Hyperlipidemia Hypertension CAD (coronary artery disease) Left rib fracture Right rib fracture History of COVID-19 Lung nodule Current use of anticoagulant therapy A-fib (~02/2022) Recurrent UTI (urinary tract infection) BPH w urinary obs/LUTS Osteoarthritis of left knee Surgical History History of suprapubic catheter History of appendectomy History of cardiac cath History of cystoscopy History of colonoscopy History of lithotripsy History of prostate surgery History of total right knee replacement Family History Family History Mother No problems noted. Father No problems noted. Social History Social History Household Members: None Housing: House Do you presently have visiting nurse or other home services: No Patient Tobacco Use Status: Former Tobacco user Quit Date: 1989 Tobacco use type: Cigarette Years Smoked: 20 Advance Directives: Yes Advance Directives on File: Yes Advance Directives Date on File: 02/28/22 service: Yes Current occupational status: retired Current occupation: [employer] - right handed Current occupational exposures/hazards: No Physical Exam Vital Signs: Vital Signs: Last Vital Signs Temp 97.7 F 09/11/23 00:38 Pulse 78 09/11/23 00:38 Resp 18 09/11/23 00:38 BP 142/89 H 09/11/23 00:38 Pulse Ox 98 09/11/23 00:38 O2 Del Method Room Air 09/11/23 00:38 BMI result Body Mass Index 22.4 Appearance: Alert. Oriented X3. No acute distress. Eyes: Pupils equal, round and reactive to light. ENT: Pharynx normal. Neck: Normal inspection. Neck supple. No lymph nodes noted. No crepitus CVS: Normal heart rate and rhythm. Pulses normal. Normal S1 and S2 Respiratory: No respiratory distress. Breath sounds normal. No Wheezing. No rales Abdomen: Soft and nontender. No rigidity. No distention. good BS x4 Skin: Skin warm and dry. Normal skin color. Normal skin turgor. Extremities: No lower extremity edema. Neurovascular intact to all extremities. No Lacerations. No Rash Neuro: Oriented X 3. No motor deficit. No sensory deficit. Moving all extermities. No slurred speech NIH Stroke Scale Internal: Initial- Upon Arrival Time: 00:53 Level of Consciousness: Alert Level of Consciousness Questions: Answers both questions correctly Level of Consciousness Commands: Performs both tasks correctly Best Gaze: Normal Visual: No visual loss Facial Palsy: Normal Motor Arm (Right): No drift Motor Arm (Left): No drift Motor Leg (Right): No drift Motor Leg (Left): No drift Limb Ataxia: Absent Sensory: Normal Best Language: No aphasia Dysarthia: Normal Extinction and Inattention: No abnormality Score: 0 Medical Decision Making Medical Decision Making MDM Narrative: Patient is 78 years old presents today with having episodes of clearing into space during these episodes patient is awake alert unable to respond patient had difficulty with his speech and his speech was slurred. Patient is aware that these episodes are occurring. They last about 5-10 minutes. Then subsequently resolved. There has no specific trigger. Question if these episodes secondary to partial seizure versus TIA. CT scan of the head was done. My interpretation patient's CT scan was grossly negative. Patient has a history of atrial fibrillation. Is on Coumadin. INR is therapeutic. Patient's hemoglobin is 13.6 there is no evidence for anemia. Electrolytes are unremarkable. Troponin is negative. Alcohol nondetectable. Can not exclude the possibility TIA versus seizures. Will admit patient for observation given patient's age. Case discussed with hospitalist. Patient been seen by Neurology in the past. Thought it was question partial complex seizure in 2021. Patient claims that these episode that he is having is different than does witnessed 2 years ago. Differential Diagnosis Differential Diagnoses: The differential diagnosis associated with the presentation includes Hypoglycemia, seizure, TIA Admission/Observation Consideration of admission/observation: Escalation of care including admission/observation considered Consult Healthcare Provider Management of the patient was discussed with: Hospitalist Lab Data [facility] Lab Attestation statement: I reviewed the patient's lab results. 09/10/23 22:22 09/10/23 22:22 Labs: Lab Results 09/10/23 Range/Units 22:22 WBC 5.2 (4.8-10.8) X10*3/uL RBC 4.66 (4.60-5.80) X10*6/uL Hgb 13.6 L (14.0-18.0) g/dl Hct 41.1 L (42.0-52.0) % MCV 88.2 (80.0-98.0) fL MCH 29.2 (27.0-33.0) pg MCHC 33.1 (31.0-36.0) g/dl RDW 13.1 (11.0-16.0) % Plt Count 281 (160-400) X10*3/uL MPV 9.5 (9.4-12.4) fL Immature Gran % (Auto) 0.2 (0.0-0.4) % Neut % (Auto) 54.0 (45-73) % Lymph % (Auto) 24.9 (20-40) % [place] % (Auto) 11.2 H (2-11) % Eos % (Auto) 8.9 H (0-4) % Baso % (Auto) 0.8 (0-2) % Lymph # (Auto) 1.3 (1.2-4.9) X10*3/uL [place] # (Auto) 0.6 (0.1-1.2) X10*3/uL Eos # (Auto) 0.5 H (0.0-0.4) X10*3/uL Baso # (Auto) 0.0 (0.0-0.2) X10*3/uL Abs Immat Gran (auto) 0.01 (0.00-0.03) X10*3/uL Absolute Neuts (auto) 2.8 (2.0-8.3) x10*3/uL Absolute Nucleated RBC 0.000 (0.0-0.012) X10*3/uL Nucleated RBC % (auto) 0.0 (0.0-0.2) /100WBC PT 29.1 H (11.1-13.3) SEC INR 2.4 H (0.9-1.1) Sodium 141 (135-145) mmol/L Potassium 4.5 (3.3-5.1) mmol/L Chloride 108 (96-108) mmol/L Carbon Dioxide 27 (22-29) mmol/L Anion Gap 11 L (12-20) BUN 13 (9-16) mg/dL Creatinine 0.84 (0.5-1.4) mg/dL Estim Creat Clear Calc 81.5 Estimated GFR > 60 Random Glucose 103 (60-115) mg/dL Calcium 9.6 (8.4-10.2) mg/dL Total Bilirubin 0.9 (0.0-1.0) mg/dL Direct Bilirubin 0.3 (0.0-0.5) mg/dL AST 22 (5-37) U/L ALT 19 (0-40) U/L Alkaline Phosphatase 91 (39-117) U/L Troponin I High Sens 4.8 D (<3.5-35.0) ng/L Total Protein 7.4 (6.5-8.0) g/dL Albumin 4.0 (3.5-5.0) g/dL Ethyl Alcohol < 10 mg/dL Independent Interpretation I performed an independent interpretation of an: EKG (Atrial atrial fibrillation heart rate about 60 QRS normal QTC normal there has no acute ST segment elevation) and CT Scan (CT scan of the head was grossly negative) Radiology Impression Discussion of test interpretation with radiology: I have reviewed the radiologist's reading. External Record Review Prior neurology record Discharge Plan Discharge Clinical Impression: A-fib, Seizure, Brain TIA Patient Disposition: Admitted As Inpatient Prescriptions: No Action tamsulosin 0.4 mg capsule 0.4 mg PO BEDTIME Qty: 90 1RF atorvastatin 40 mg tablet 1 tab PO DAILY propranolol 60 mg capsule,extended release 24 hr 1 cap PO DAILY omeprazole 20 mg capsule,delayed release(DR/EC) 1 cap PO DAILY warfarin 2.5 mg tablet 1 tab PO DAILY Protocol: Dose Management Condition: Sunday (Week One) Dose/Route: 2.5 mg Instruction: 1 x 2.5 mg tablet Condition: Sunday Dose/Route: 2.5 mg Instruction: 1 x 2.5 mg tablet Condition: Sunday Dose/Route: 5 mg Instruction: 2 x 2.5 mg tablets Condition: Sunday Dose/Route: 2.5 mg Instruction: 1 x 2.5 mg tablet Condition: Dose/Route: 2.5 mg Instruction: 1 x 2.5 mg tablet Condition: Sunday Dose/Route: 5 mg Instruction: 2 x 2.5 mg tablets Condition: Sunday Dose/Route: 2.5 mg Instruction: 1 x 2.5 mg tablet Condition: Sunday (Week Two) Dose/Route: 2.5 mg Instruction: 1 x 2.5 mg tablet Condition: Sunday Dose/Route: 2.5 mg Instruction: 1 x 2.5 mg tablet Condition: Sunday Dose/Route: 5 mg Instruction: 2 x 2.5 mg tablets Condition: Sunday Dose/Route: 2.5 mg Instruction: 1 x 2.5 mg tablet Condition: Dose/Route: 2.5 mg Instruction: 1 x 2.5 mg tablet Condition: Sunday Dose/Route: 5 mg Instruction: 2 x 2.5 mg tablets Condition: Sunday Dose/Route: 2.5 mg Instruction: 1 x 2.5 mg tablet Protocol Text: Adjustment Start Date: 09/06/23 INR Value: 3.0 INR Date: 09/06/23 Recheck Date: 10/04/23 Additional Instructions: INR is top of range keep same dosing green today then balance and be consistent pyridoxine (vitamin B6) 100 mg tablet 100 mg PO DAILY Qty: 90 3RF cholecalciferol (vitamin D3) 25 mcg (1,000 unit) tablet 25 mcg PO DAILY acetaminophen 650 mg tablet extended release 650 mg PO DAILY paroxetine HCl 40 mg tablet 40 mg PO DAILY lorazepam 0.5 mg tablet 0.5 mg PO DAILY PRN (Reason: anxiety) paroxetine HCl 10 mg tablet 10 mg PO DAILY
--- NOTE | 2023-09-11 00:57 | MHC.EDTECH ---
Belongings list completed,patient has 151.00 [address]olan in wallet would like to keep at bedside, RN witnessed. Copy placed in chart. Patient voided 200MLS of yellow urine in urinal,urine sample collected and sent to lab.
[2023-09-11 01:00] LABS: Appearance Urine Clear; Color Urine Yellow; Glucose Urine UA Negative (Negative); Leukocyte Esterase Urine Negative (Negative); Nitrite Urine Negative (Negative); Specific Gravity - Urine 1.015 (1.005-1.025); Urine Blood Negative (Negative); Urine Ketones Negative (Negative); Urine Protein Negative (Neg-Trace)
[2023-09-11 01:06] LABS: Amphetamine Screen Urine Not Detected (Not Detect); Barbiturates, Urine Not Detected (Not Detect); Benzodiazepines Screen Urine Not Detected (Not Detect); Cannabinoid Screen Urine Not Detected (Not Detect); Cocaine Screen Urine Not Detected (Not Detect); Fentanyl, urine Not Detected (Not Detect); Opiate Screen Urine Not Detected (Not Detect); Phencyclidine Screen Urine Not Detected (Not Detect)
[2023-09-11] MEDS: iohexoL 350 MG/ML 100 ML INFUS..BTL 70 ML IV (01:22)
--- NOTE | 2023-09-11 03:06 | PC.NURSE ---
78 years old, from home with 3 episodes of difficulty with speech and clumsy that lasted approx 5 min/ Hx afib on Coumadin, uti, htn, covid. Admit for rule out of TIA vs Seizure - observation. Neuro consult, cardiac diet, MRI of brain . 20iv in R.AC ambularory at baseline. All neuros intact, Pass dysphasia screening
--- NOTE | 2023-09-11 03:51 | MHC.EDTECH ---
Hourly rounds and vitals completed,patient was given a warm blanket and is resting comfortably at this time, call crowder in reach
--- NOTE | 2023-09-11 04:21 | P.HPHOSP_ITS ---
History of Present Illness Date of Service: 09/11/23 Attending physician on admission: Ellis Jimenez Chief Complaint: Episodes of inability to speak Reji Tony is a 78 years old man with past medical history significant for atrial fibrillation on chronic anticoagulation with warfarin, CAD, BPH, hyperlipidemia and essential hypertension presents to the emergency department complaining of episodes of inability to speak associated with lightheadedness. Last episode happened yesterday at noontime. He stated that this episode has been happening multiple times for the last several months. He is unable to explain while this episode but commented that he hear people talking to him but he does not understand what they are saying and unable to speak. He also reports occasional episodes of left-sided headache that are self-limited. There are no episodes of acute memory loss. He denied double vision, blurry vision, loss of consciousness, swallowing difficulty, focal weakness or acute gait difficulty. Denied acute cardiopulmonary, gastrointestinal or genitourinary symptoms. He denies history of strokes or TIAs. In the ED, he was found to have normal vital signs. Blood workup showed no leukocytosis. Hemoglobin is 13.6 (better than prior). INR is 2.4. There are no significant electrolyte imbalances. Renal function is adequate. LFTs are normal. Troponin is 4.6. Head CT scan and head/neck CTA showed no acute intracranial abnormalities, high-grade stenosis or large vessel occlusion. ECG showed atrial fibrillation with slow ventricular response, heart rate 57 bpm, RBBB and no acute ischemic changes. ED tx: None. Review of Systems 2 Review of Systems: All 12 systems were reviewed and normal except as noted in HPI. [facility] Medical History Mild mitral valve regurgitation Tubular adenoma Cardiac ischemia Rotator cuff tear arthropathy of both shoulders Depression Anxiety GERD (gastroesophageal reflux disease) Hyperlipidemia Hypertension CAD (coronary artery disease) Left rib fracture Right rib fracture History of COVID-19 Lung nodule Current use of anticoagulant therapy A-fib (~02/2022) Recurrent UTI (urinary tract infection) BPH w urinary obs/LUTS Osteoarthritis of left knee Family History Mother No problems noted. Father No problems noted. Surgical History History of suprapubic catheter History of appendectomy History of cardiac cath History of cystoscopy History of colonoscopy History of lithotripsy History of prostate surgery History of total right knee replacement Social History Household Members: None Housing: House Do you presently have visiting nurse or other home services: No Patient Tobacco Use Status: Former Tobacco user Quit Date: 1989 Tobacco use type: Cigarette Years Smoked: 20 Advance Directives: Yes Advance Directives on File: Yes Advance Directives Date on File: 02/28/22 Nutrition Risks: No Nutritional Risk service: Yes Current occupational status: retired Current occupation: [email or web address] - right handed Current occupational exposures/hazards: No Meds Allergies Allergy/AdvReac Type Severity Reaction Status Date / Time indomethacin [From INDOCIN] Allergy Intermediate RASH Verified 09/06/23 10:12 oxycodone [OXYCODONE] Allergy Intermediate VOMITING/RA Verified 09/06/23 10:12 SH Sulfa (Sulfonamide Allergy Intermediate BLISTERS, Verified 09/06/23 10:12 Antibiotics) sore on [SULFA (SULFONAMIDE the end of ANTIBIOTICS)] his penis acetaminophen [Percocet] AdvReac Unknown vomiting Verified 09/06/23 10:12 Active Medications: Current Medications Sodium Chloride (0.9 % Sodium Chloride Flush 3 Ml Syringe) 3 ml IVFLUSH [facility] Home Medications Medication Instructions Recorded Confirmed Last Taken Type atorvastatin 40 mg tablet 1 tab PO DAILY 08/01/22 09/11/23 Unknown History omeprazole 20 mg capsule,delayed 1 cap PO DAILY 08/01/22 09/11/23 Unknown History release propranolol 60 mg capsule,24 1 cap PO DAILY 08/01/22 09/06/23 Unknown History hr,extended release warfarin 2.5 mg tablet 1 tab PO DAILY 08/07/22 09/06/23 12/06/22 History cholecalciferol (vitamin D3) 25 25 mcg PO DAILY 08/17/22 09/06/23 Unknown History mcg (1,000 unit) tablet acetaminophen 650 mg 650 mg PO DAILY 09/05/22 09/06/23 Unknown History tablet,extended release paroxetine HCl 40 mg tablet 40 mg PO DAILY 10/18/22 09/11/23 Unknown History lorazepam 0.5 mg tablet 0.5 mg PO DAILY PRN anxiety 01/15/23 09/11/23 Unknown History paroxetine HCl 10 mg tablet 10 mg PO DAILY 08/08/23 09/11/23 Unknown History warfarin 2.5 mg tablet 2.5 mg PO 5XW 09/11/23 09/11/23 Unknown History warfarin 2.5 mg tablet 5 mg PO 2XW 09/11/23 09/11/23 Unknown History Physical Exam 2 Vital Signs and Narrative: Vital Signs: Last Vital Signs Temp 97.8 F 09/11/23 03:50 Pulse 68 09/11/23 03:50 Resp 18 09/11/23 03:50 BP 138/81 09/11/23 03:50 Pulse Ox 98 09/11/23 03:50 O2 Del Method Room Air 09/11/23 03:50 BMI result Body Mass Index 22.4 Constitutional - Awake and Alert, No apparent distress HEENT - PERRLA, EOMI. Normal sclerae. Moist oral mucosa. Heart - bradycardia. Irregular rhythm. No murmur Lungs - Normal lung expansion, Normal respiratory effort, No respiratory distress, CTA bilaterally Abdomen - NT / ND; +BS; No rebound or guarding Extremities - no calf tenderness bilaterally, no swelling Musculoskeletal - Normal inspection, normal ROM Skin - Warm/Dry Neurological - Alert & oriented x3, CN III-XII in tact, 5/5 strength BUE and BLE Psychological - Appropriate affect Results Labs 09/10/23 22:22 09/10/23 22:22 Labs: Laboratory Results - last 24 hr 09/10/23 09/11/23 22:22 00:50 MCV 88.2 MCH 29.2 MCHC 33.1 RDW 13.1 Plt Count 281 MPV 9.5 Immature Gran % (Auto) 0.2 Neut % (Auto) 54.0 Lymph % (Auto) 24.9 [place] % (Auto) 11.2 H Eos % (Auto) 8.9 H Baso % (Auto) 0.8 Lymph # (Auto) 1.3 [place] # (Auto) 0.6 Eos # (Auto) 0.5 H Baso # (Auto) 0.0 Abs Immat Gran (auto) 0.01 Absolute Neuts (auto) 2.8 Absolute Nucleated RBC 0.000 Nucleated RBC % (auto) 0.0 PT 29.1 H INR 2.4 H Anion Gap 11 L Estim Creat Clear Calc 81.5 Estimated GFR > 60 Random Glucose 103 Calcium 9.6 Total Bilirubin 0.9 Direct Bilirubin 0.3 AST 22 ALT 19 Alkaline Phosphatase 91 Troponin I High Sens 4.8 D Total Protein 7.4 Albumin 4.0 Urine Color Yellow Urine Appearance Clear Urine pH 6.0 Ur Specific [place] 1.015 Urine Protein Negative Urine Glucose (UA) Negative Urine Ketones Negative Urine Blood Negative Urine Nitrite Negative Ur Leukocyte Esterase Negative Urine Opiates Screen Not Detected Urine Fentanyl Screen Not Detected Ur Barbiturates Screen Not Detected Ur Phencyclidine Scrn Not Detected Ur Amphetamines Screen Not Detected U Benzodiazepines Scrn Not Detected Urine Cocaine Screen Not Detected U Marijuana (THC) Screen Not Detected Ethyl Alcohol < 10 Imaging Radiologist's Impressions: Impressions Head CT 09/10/23 17:19 IMPRESSION: 1. No acute intracranial pathology. 2. Mild volume loss and chronic microangiopathic changes. Remote lacunar infarct in the right basal ganglia. Head/Neck CTA 09/11/23 01:25 IMPRESSION: 1. No acute intracranial abnormality including hemorrhage, mass effect, hydrocephalus, or acute territorial edematous infarction. 2. No arterial high grade stenosis or large vessel occlusion in the head or neck. Assessment and Plan (1) Lightheadedness: Status: Acute (2) CAD (coronary artery disease): Qualifiers: Coronary Disease-Associated Artery/Lesion type: unspecified vessel or lesion type [place] vs. transplanted heart: unspecified whether [place] or transplanted heart Associated angina: unspecified whether angina present Qualified Code(s): I25.10 - Atherosclerotic heart disease of [place] coronary artery without angina pectoris Status: Acute (3) A-fib: Qualifiers: Atrial fibrillation type: unspecified chronic Qualified Code(s): I48.20 - Chronic atrial fibrillation, unspecified Status: Acute (4) Difficulty comprehending speech: Status: Acute Plan Reji Tony is a 78 years old man with history of CAD presents with: * Multiple brief episodes of speech difficulty. TIA? Seizures? Keeping observation. Telemetry. Continue treatment with warfarin (INR therapeutic). Brain MRI. Neurology consult for further recommendations. * Atrial fibrillation, slow ventricular response. Telemetry. Continue warfarin. * Therapeutic INR. Continue warfarin (2.5 mg PO 5X weekly -M,W,Deja,Sat,Sun and 5 mg PO bid -Sun,Sun). Check INR daily. * Hyperlipidemia. Continue statin. * Essential hypertension. Taking propranolol? Continue to monitor blood pressure. * BPH. Taking tamsulosin? * History of anxiety and depression. Continue paroxetine and Ativan p.r.n. Of note: Patient does not recall the name of all his home medications. We are waiting for pharmacy to confirm his home medications. DVT prophylaxis: warfarin Code status: Full Quality Stroke Does the patient have a stroke diagnosis?: No VTE Prior VTE?: No VTE Risk Level:: Medical - moderate - high VTE Device Contraindication: Treatment Not Indicated VTE Drug Contraindication: N/A - Med Ordered
--- NOTE | 2023-09-11 06:17 | MHC.EDTECH ---
Hourly rounds and vitals completed,patient urinated 200MLS in urinal,patient is resting at this time,call crowder in reach
[2023-09-11 06:28] LABS: MANUAL DIFF FLAG NO
[2023-09-11 06:35] LABS: Basophils Percent Auto 0.7 % (0-2); Eosinophils Absolute Auto 0.5 X10*3/uL (0.0-0.4); Eosinophils Percent Auto 8.1 % (0-4); Hematocrit 37.6 % (42.0-52.0); Hemoglobin 12.6 g/dl (14.0-18.0); Imm Gran Abs Auto 0.01 X10*3/uL (0.00-0.03); Imm Gran Pct Auto 0.2 % (0.0-0.4); Lymphocytes Absolute Auto 1.2 X10*3/uL (1.2-4.9); Lymphocytes Percent Auto 21.2 % (20-40); Mean Corpuscular HGB Conc 33.5 g/dl (31.0-36.0); Mean Corpuscular Hemoglobin 29.5 pg (27.0-33.0); Mean Corpuscular Volume 88.1 fL (80.0-98.0); Mean Platelet Volume 10.1 fL (9.4-12.4); Monocytes Absolute Auto 0.6 X10*3/uL (0.1-1.2); Monocytes Percent Auto 9.7 % (2-11); Neutrophils Absolute Auto 3.4 x10*3/uL (2.0-8.3); Neutrophils Percent Auto 60.1 % (45-73); Platelet Count 244 X10*3/uL (160-400); Red Blood Count 4.27 X10*6/uL (4.60-5.80); White Blood Count 5.7 X10*3/uL (4.8-10.8)
[2023-09-11 06:53] LABS: Anion Gap 11 (12-20); Blood Urea Nitrogen 13 mg/dL (9-16); Calcium 8.9 mg/dL (8.4-10.2); Carbon Dioxide 25 mmol/L (22-29); Chloride 108 mmol/L (96-108); Creatinine Clr Calc Pharmacy 87.8; Estimated Glomerular Filt Rate > 60; Glucose Random 81 mg/dL (60-115); Sodium 140 mmol/L (135-145)
[2023-09-11 07:33] LABS: Folate 7.1 ng/mL (> or = 4.0); Vitamin B12 392 pg/mL (200-900)
[2023-09-11] MEDS: PARoxetine HCL 10 MG TABLET PO (08:04)
[2023-09-11] MEDS: Atorvastatin Calcium 40 MG TABLET PO (08:05)
[2023-09-11] MEDS: PARoxetine HCL 40 MG TABLET PO (08:05)
[2023-09-11] MEDS: 0.9 % Sodium Chloride Flush 3 ML SYRINGE IVFLUSH ×2 (08:06→17:42)
--- NOTE | 2023-09-11 08:44 | PHA.MEDREC ---
Pharmacy Consult ? Medication Reconciliation Pharmacy has completed the medication reconciliation. Spoke to patient at bedside, unsure of names of medications but able to name indications. Specified that his warfarin was 2 tabs / and 1 tab the rest of the week
--- NOTE | 2023-09-11 09:36 | P.CNNE_ITS ---
History of Present Illness Data of Consult Service Date: 09/11/23 Primary Care Provider: Chris Walker MD HPI Reason for consult: Confusion 78 years old man with atrial fibrillation on anticoagulation and also diagnosis of seizure disorder came to hospital with episodes of difficulty speaking. There was no history of overt seizure. He denied any headache. There was no focal weakness. There was no complaint of any cardiac symptom or cold or flu- like illness. Review of Systems 2 Review of Systems: No recent cold or flu-like illness or trauma or headache PMFSH Past Medical History Medical History Mild mitral valve regurgitation Tubular adenoma Cardiac ischemia Rotator cuff tear arthropathy of both shoulders Depression Anxiety GERD (gastroesophageal reflux disease) Hyperlipidemia Hypertension CAD (coronary artery disease) Left rib fracture Right rib fracture History of COVID-19 Lung nodule Current use of anticoagulant therapy A-fib (~02/2022) Recurrent UTI (urinary tract infection) BPH w urinary obs/LUTS Osteoarthritis of left knee Family History Family History Mother No problems noted. Father No problems noted. Surgical History Surgical History History of suprapubic catheter History of appendectomy History of cardiac cath History of cystoscopy History of colonoscopy History of lithotripsy History of prostate surgery History of total right knee replacement Social History Social History Household Members: None Housing: House Do you presently have visiting nurse or other home services: No Patient Tobacco Use Status: Former Tobacco user Quit Date: 1989 Tobacco use type: Cigarette Years Smoked: 20 Advance Directives: Yes Advance Directives on File: Yes Advance Directives Date on File: 02/28/22 Nutrition Risks: No Nutritional Risk service: Yes Current occupational status: retired Current occupation: [employer] - right handed Current occupational exposures/hazards: No Meds Allergies Allergy/AdvReac Type Severity Reaction Status Date / Time indomethacin [From INDOCIN] Allergy Intermediate RASH Verified 09/06/23 10:12 oxycodone [OXYCODONE] Allergy Intermediate VOMITING/RA Verified 09/06/23 10:12 SH Sulfa (Sulfonamide Allergy Intermediate BLISTERS, Verified 09/06/23 10:12 Antibiotics) sore on [SULFA (SULFONAMIDE the end of ANTIBIOTICS)] his penis acetaminophen [Percocet] AdvReac Unknown vomiting Verified 09/06/23 10:12 Active Medications: Current Medications Atorvastatin Calcium (Atorvastatin Calcium 40 Mg Tablet) 40 mg PO DAILY [facility] Last Admin: 09/11/23 08:05 Dose: 40 mg Lorazepam (Lorazepam 0.5 Mg Tablet) 0.5 mg PO DAILY PRN PRN Reason: anxiety Paroxetine HCl (Paroxetine Hcl 40 Mg Tablet) 40 mg PO DAILY [facility] Last Admin: 09/11/23 08:05 Dose: 40 mg Paroxetine HCl (Paroxetine Hcl 10 Mg Tablet) 10 mg PO DAILY [facility] Last Admin: 09/11/23 08:04 Dose: 10 mg Sodium Chloride (0.9 % Sodium Chloride Flush 3 Ml Syringe) 3 ml IVFLUSH QSHIFT [facility] Last Admin: 09/11/23 08:06 Dose: 3 ml Warfarin Sodium (Warfarin Sodium 5 Mg Tablet) 5 mg PO TuFr@1800 [facility] Warfarin Sodium (Warfarin Sodium 2.5 Mg Tablet) 2.5 mg PO SuMoWeThSa@1800 [facility] Home Medications Medication Instructions Recorded Confirmed Last Taken Type atorvastatin 40 mg tablet 1 tab PO DAILY 08/01/22 09/11/23 Unknown History omeprazole 20 mg capsule,delayed 1 cap PO DAILY 08/01/22 09/11/23 Unknown History release propranolol 60 mg capsule,24 1 cap PO DAILY 08/01/22 09/11/23 Unknown History hr,extended release cholecalciferol (vitamin D3) 25 25 mcg PO DAILY 08/17/22 09/11/23 Unknown History mcg (1,000 unit) tablet paroxetine HCl 40 mg tablet 40 mg PO DAILY 10/18/22 09/11/23 Unknown History lorazepam 0.5 mg tablet 0.5 mg PO DAILY PRN anxiety 01/15/23 09/11/23 Unknown History paroxetine HCl 10 mg tablet 10 mg PO DAILY 08/08/23 09/11/23 Unknown History warfarin 2.5 mg tablet 2.5 mg PO 5XW 09/11/23 09/11/23 Unknown History warfarin 2.5 mg tablet 5 mg PO 2XW 09/11/23 09/11/23 Unknown History Physical Exam 2 Vital Signs: Vital Signs: Last Vital Signs Temp 98.1 F 09/11/23 06:16 Pulse 70 09/11/23 06:16 Resp 16 09/11/23 06:16 BP 101/72 09/11/23 06:16 Pulse Ox 97 09/11/23 06:16 O2 Del Method Room Air 09/11/23 06:16 BMI result Body Mass Index 22.4 Neuro: Other: Alert and awake with somewhat decreased spontaneity and fluency of speech. He was frequently looking for words and could not come up with sentences. At the same time he was able to repeat and name. Comprehension was intact. Face was symmetrical. Visual field examination suggested right hemianopsia. With double simultaneous stimulation he did not perceive a touch on the right side. Plantars were equivocal. There was no obvious focal weakness but this seems to be right pronator drift. Results Labs 09/11/23 05:01 09/11/23 05:01 Labs: Short CBC 09/10/23 09/11/23 Range/Units 22:22 05:01 WBC 5.2 5.7 (4.8-10.8) X10*3/uL Hgb 13.6 L 12.6 L (14.0-18.0) g/dl Hct 41.1 L 37.6 L (42.0-52.0) % Plt Count 281 244 (160-400) X10*3/uL BMP 09/10/23 09/11/23 22:22 05:01 Sodium 141 140 Potassium 4.5 4.0 Chloride 108 108 Carbon Dioxide 27 25 BUN 13 13 Creatinine 0.84 0.78 Calcium 9.6 8.9 D Liver Function 09/10/23 Range/Units 22:22 Total Bilirubin 0.9 (0.0-1.0) mg/dL Direct Bilirubin 0.3 (0.0-0.5) mg/dL AST 22 (5-37) U/L ALT 19 (0-40) U/L Alkaline Phosphatase 91 (39-117) U/L Albumin 4.0 (3.5-5.0) g/dL Urine 09/11/23 Range/Units 00:50 Urine Color Yellow Urine Appearance Clear Urine pH 6.0 (5.0-9.0) Ur Specific [place] 1.015 (1.005-1.025) Urine Protein Negative (Neg-Trace) mg/dL Urine Glucose (UA) Negative (Negative) mg/dL His CT and CTA of brain and neck did not reveal any acute abnormality. Mild microvascular disease and atrophy was noted. Assessment and Plan (1) Difficulty comprehending speech: Status: Acute 78 years old man with new onset of difficulty speaking type of episodes. On examination he has mild features of motor aphasia, right hemianopsia and right sided spatial neglect. I recommend obtaining an MRI of brain without contrast for proper definition. Differential diagnosis is brought but ischemic stroke is a possibility. Some of his problems might be due to underlying degenerative dementia type of pathology. Procedures Date of Service Date of Service: 09/11/23
--- NOTE | 2023-09-11 10:28 | MHC.STROKE ---
Neurology consulted for this patient. Pt awake, alert and oriented x 3. Being admitted for r/o CVA vs TIA Pt reports episodes of difficulty speaking, lightheadedness, and Left posterior head pain for months Pt reports during these episodes he has difficulty speaking and it takes me a while to get my thoughts back in order . Pt states I don't feel as sharp . Pt states that these episodes typically last less than a minute but feels like it takes a while to recover from them. Pt evaluated by neurology this am. Plan is for MRI. Pt aware and agreeable to plan. Stroke/TIA education provided. Will continue to assist as needed.
--- NOTE | 2023-09-11 11:17 | MHC.CM.PN ---
Patient was unavailable; CM spoke with Niece/Nicolle ([phone]), who works at [employer] and addressed CAUSEY with her (original will be mailed to Nicolle and a copy placed on the chart). 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 Home/self care is the goal and CM has initialed and will follow for dc planning. PCP is Dr. Chris Walker.HCP on file that names Estela as the Agent is no longer active; Estela has . Danica/Nicolle is looking for the new HCP that names her as the Agent.
--- NOTE | 2023-09-11 11:28 | PC.NURSE ---
Assumed care of this patient at 1100, resting quietly on stretcher at this time awaitng MRI and bed assignment
[2023-09-11 12:22] LABS: Thyroid Stimulating Hormone 1.96 uIU/mL (0.32-4.0)
--- NOTE | 2023-09-11 13:55 | PM.EVENT ---
Event Note Date of Service: 09/12/23 Event Note: This patient is seen and examined Hospitalist team this morning, seen and examined again Patient still having on and off for getting and word-finding difficulties Denies any weakness or numbness MRI pending Physical exam: Physical exam unchanged Assessment and plan: Coordinated H&p note 78 years old man with history of CAD presents with: Multiple brief episodes of speech difficulty. TIA? Seizures? Keeping observation. Telemetry. Continue treatment with warfarin (INR therapeutic). Brain MRI. Neurology consult mri pending Pt eval added will moniter him today srill having similar episode intermitent. Atrial fibrillation, slow ventricular response. Telemetry. Continue warfarin. Therapeutic INR. Continue warfarin (2.5 mg PO 5X weekly -,,Deja,Sun,Sun and 5 mg PO bid -Sun,Sun). Check INR daily. Hyperlipidemia. Continue statin. Essential hypertension. Taking propranolol? Continue to monitor blood pressure. BPH. Taking tamsulosin? History of anxiety and depression. Continue paroxetine and Ativan p.r.n. Time Spent With Patient Time: Total time managing care of this patient today ____ minutes.
[2023-09-11] MEDS: Warfarin Sodium 5 MG TABLET PO (17:42)
[2023-09-11] MEDS: Cholecalciferol (Vitamin D3) 25 MCG TABLET PO (17:42)
[2023-09-11] MEDS: Pyridoxine HCl (Vitamin B6) 50 MG TABLET 100 MG PO (17:42)
[2023-09-11] MEDS: Propranolol HCL LA 60 MG CAP.SA.24H PO (17:43)
[2023-09-12 03:23] VITALS: BP 155/87; PULSE 83; RESP 16; TEMP 37.3; O2SAT 95
[2023-09-12 06:47] VITALS: BP 121/74; PULSE 68; RESP 18; TEMP 36.4; O2SAT 95
[2023-09-12 07:22] LABS: INTERNATIONAL NORM RATIO 2.3 (0.9-1.1); Prothrombin Time 28.4 SEC (11.1-13.3)
[2023-09-12] MEDS: Pyridoxine HCl (Vitamin B6) 50 MG TABLET 100 MG PO (09:49)
[2023-09-12] MEDS: 0.9 % Sodium Chloride Flush 3 ML SYRINGE IVFLUSH (09:49)
[2023-09-12] MEDS: PARoxetine HCL 40 MG TABLET PO (09:49)
[2023-09-12] MEDS: Atorvastatin Calcium 40 MG TABLET PO (09:49)
[2023-09-12] MEDS: Cholecalciferol (Vitamin D3) 25 MCG TABLET PO (09:49)
[2023-09-12] MEDS: Propranolol HCL LA 60 MG CAP.SA.24H PO (09:49)
[2023-09-12] MEDS: PARoxetine HCL 10 MG TABLET PO (09:49)
--- NOTE | 2023-09-12 10:31 | MHC.CM.PN ---
Pt has been medically cleared for DC, he will have his grand niece pick him up. CM discussed home services with him, he has had [facility] in the past and cancelled them. He and his niece are working with [facility] and [place] on finding him an apt. and services. Pt currently lives alone in a 2 family house that he owns, niece is going to help him sell it and downsize. no services referred at this time.
[2023-09-12 11:03] VITALS: BP 112/67; PULSE 58; RESP 18; TEMP 36.6; O2SAT 97
--- NOTE | 2023-09-12 12:04 | MHC.CM.PN ---
KRYSTINA received a call from Ml, the nurse from the [facility] in [place] re: pt. This pt. is known to Ml and she had concerns about pt.'s home, thinks it is a hoarding situation. This service writer explained to her that I met with pt. and he is working with his niece to move, etc. KRYSTINA called niece, Nicolle and gave her Ml's phone #, and let her know that she can help her with some resources, like getting a dumpster and / or a company that can clean out the house. KRYSTINA also let Nicolle know about [facility], and encouraged her to apply for an apt for pt. She was appreciative of the information.
--- NOTE | 2023-11-25 15:16 | P.DS_ITS ---
DS: Providers Provider Date of Service: 09/12/23 Date of admission: 09/11/23 02:44 Date of discharge: 09/12/23 Primary care physician: Chris Walker MD Consults: 09/11/23 02:46 Consult to Neurology Routine Consulting Provider: [facility] Reason for consultation: Speech difficulty Has provider been notified: No Attending physician on discharge: Malik Huffman Discharging clinician: Malik Huffman DS: Diagnosis Discharge Diagnosis (1) Difficulty comprehending speech: Status: Acute DS: Summary Hospital Course Hospital Course: HPI: 78 years old man with past medical history significant for atrial fibrillation on chronic anticoagulation with warfarin, CAD, BPH, hyperlipidemia and essential hypertension presents to the emergency department complaining of episodes of inability to speak associated with lightheadedness. Last episode happened yesterday at noontime. He stated that this episode has been happening multiple times for the last several months. He is unable to explain while this episode but commented that he hear people talking to him but he does not understand what they are saying and unable to speak. He also reports occasional episodes of left-sided headache that are self-limited. There are no episodes of acute memory loss. He denied double vision, blurry vision, loss of consciousness, swallowing difficulty, focal weakness or acute gait difficulty. Denied acute cardiopulmonary, gastrointestinal or genitourinary symptoms. He denies history of strokes or TIAs. In the ED, he was found to have normal vital signs. Blood workup showed no leukocytosis. Hemoglobin is 13.6 (better than prior). INR is 2.4. There are no significant electrolyte imbalances. Renal function is adequate. LFTs are normal. Troponin is 4.6. Head CT scan and head/neck CTA showed no acute intracranial abnormalities, high-grade stenosis or large vessel occlusion. ECG showed atrial fibrillation with slow ventricular response, heart rate 57 bpm, RBBB and no acute ischemic changes. Hospital course: Patient came to the hospital because of possible difficulties speech : MRI was done which is negative for new stroke, seen by Neurology: Patient's symptoms are going on for long time , question of possible dementia ( mri Moderate underlying microangiopathy and generalized cerebral volume loss ). less likely stroke, TSH and B12 seems fine: Patient is to follow-up out patiently with PCP and consider outpatient neurology evaluation if needed. plan: as above. Assessment plan coordination time spent 40 minute. Time Attestation Total time managing care of this patient today: 40 mintues. Discharge Coordination Time (in mins): Forty minute Quality: Safe Use of Opioids Does Pt have an Active Cancer Diagnosis on the Problem List?: No Quality: Stroke Does the patient have a stroke diagnosis?: No Physical Exam Vital Signs: Vital Signs: Last Vital Signs Temp 97.9 F 09/12/23 11:03 Pulse 58 09/12/23 11:03 Resp 18 09/12/23 11:03 BP 112/67 09/12/23 11:03 Pulse Ox 97 09/12/23 11:03 O2 Del Method Room Air 09/12/23 11:03 BMI result Body Mass Index 22.4 Appearance: Alert.? Oriented X3.? . cvs: rrr, [id number] , no murmur res: clear to auscultation ,no rhonchii or wheezing abd: no rebound or guarding ,nt, bs present. ext pulses present , no cyanosis . neuro: axo3 , Alert and awake with somewhat decreased spontaneity and fluency of speech. some occaions word finding difficulty, Comprehension was intact. Face was symmetrical. Visual field examination suggested right hemianopsia. DS: Data Data Completed and Pending Completed studies during hospitalization [Text1]: Procedures Dilation of Left Ureter with Intraluminal Device, Via Natural or Artificial Opening Endoscopic (08/01/22) Imaging Chest x-ray: Radiologist's impression: ITS Impressions Head CT 09/10/23 17:19 IMPRESSION: 1. No acute intracranial pathology. 2. Mild volume loss and chronic microangiopathic changes. Remote lacunar infarct in the right basal ganglia. Head/Neck CTA 09/11/23 01:25 IMPRESSION: 1. No acute intracranial abnormality including hemorrhage, mass effect, hydrocephalus, or acute territorial edematous infarction. 2. No arterial high grade stenosis or large vessel occlusion in the head or neck. Brain MRI 09/11/23 12:36 IMPRESSION: 1. No acute intracranial abnormalities. 2. Moderate underlying microangiopathy and generalized cerebral volume loss. Discharge Plan Discharge Anticipated Discharge Date/Time: 09/12/23 09:54 Patient Disposition: Home, Self-Care Discharge Diagnosis: difficulty speech -unclear etiology ,possible question of dementia Referrals: Chris Walker MD [Primary Care Provider] - 1 Week Discharge Medications: Continued atorvastatin 40 mg tablet 1 tab PO DAILY propranolol 60 mg capsule,extended release 24 hr 1 cap PO DAILY omeprazole 20 mg capsule,delayed release(DR/EC) 1 cap PO DAILY cholecalciferol (vitamin D3) 25 mcg (1,000 unit) tablet 25 mcg PO DAILY paroxetine HCl 40 mg tablet 40 mg PO DAILY lorazepam 0.5 mg tablet 0.5 mg PO DAILY PRN (Reason: anxiety) paroxetine HCl 10 mg tablet 10 mg PO DAILY No Action pyridoxine (vitamin B6) 100 mg tablet 100 mg PO DAILY Qty: 90 3RF warfarin 2.5 mg tablet 2.5 mg PO 2XW Protocol: Dose Management Condition: Sunday (Week One) Dose/Route: 2.5 mg Instruction: 1 x 2.5 mg tablet Condition: Sunday Dose/Route: 2.5 mg Instruction: 1 x 2.5 mg tablet Condition: Sunday Dose/Route: 5 mg Instruction: 2 x 2.5 mg tablets Condition: Sunday Dose/Route: 2.5 mg Instruction: 1 x 2.5 mg tablet Condition: Dose/Route: 2.5 mg Instruction: 1 x 2.5 mg tablet Condition: Sunday Dose/Route: 2.5 mg Instruction: 1 x 2.5 mg tablet Condition: Sunday Dose/Route: 2.5 mg Instruction: 1 x 2.5 mg tablet Condition: Sunday (Week Two) Dose/Route: 2.5 mg Instruction: 1 x 2.5 mg tablet Condition: Sunday Dose/Route: 2.5 mg Instruction: 1 x 2.5 mg tablet Condition: Sunday Dose/Route: 5 mg Instruction: 2 x 2.5 mg tablets Condition: Sunday Dose/Route: 2.5 mg Instruction: 1 x 2.5 mg tablet Condition: Dose/Route: 2.5 mg Instruction: 1 x 2.5 mg tablet Condition: Sunday Dose/Route: 2.5 mg Instruction: 1 x 2.5 mg tablet Condition: Sunday Dose/Route: 2.5 mg Instruction: 1 x 2.5 mg tablet Protocol Text: Adjustment Start Date: 11/15/23 INR Value: 3.1 INR Date: 11/15/23 Recheck Date: 11/29/23 Additional Instructions: REVIEW FOOD LIST WEEKLY ,EAT A MIX OF FRUITS AND VEGETABLES Rx Instructions: 5 mg X 1 DAY/ 2.5MG X 6 DAYS Discharge Orders: Discharge Order (Routine); Ordered 09/12/23 Ordered By: Malik Huffman Diet: Advance to usual diet Activity on Discharge: As tolerated Stand Alone Forms: Patient Portal Discharge page Print Language: Yemeni Care Plan Goals: Patient came to the hospital because of possible difficulties speech : MRI was done which is negative for new stroke, seen by Neurology: Patient's symptoms are going on for long time , question of possible dementia, less likely stroke, TSH and B12 seems fine: Patient is to follow-up out patiently with PCP and consider outpatient neurology evaluation if needed. Health Concerns: As above. Plan of Treatment: As above. Assessment: As above. Discharge Date/Time: 09/12/23 12:58
== END 2023-09-12 12:58 | disposition home or self-care (01) ==
LOC: HO.ED 09-11 00:59 → HO.EDOVER 09-11 02:48 → HO.IMC 09-11 14:31
PROVIDERS: Emergency Medicine; Admitting Provider Internal Medicine; Emergency Provider Emergency Medicine Emergency Medical Services; PCP Internal Medicine Medical Oncology; Visit Provider Internal Medicine
DX: R47.01 Aphasia (principal); G40.909 Epilepsy, unspecified, not intractable, without status epilepticus; H53.47 Heteronymous bilateral field defects; N40.0 Benign prostatic hyperplasia without lower urinary tract symptoms; F41.8 Other specified anxiety disorders; R42 Dizziness and giddiness; I25.10 Atherosclerotic heart disease of native coronary artery without angina pectoris; I48.20 Chronic atrial fibrillation, unspecified; R51.9 Headache, unspecified; R47.9 Unspecified speech disturbances; I10 Essential (primary) hypertension; Z79.01 Long term (current) use of anticoagulants; E78.5 Hyperlipidemia, unspecified; Z79.899 Other long term (current) drug therapy
CPT/HCPCS: 36415; 70450; 70496; 70498; 70551; 80048; 80076; 80307; 81003; 82607; 82746; 84443; 84484; 85025; 85610; 93005; 97161; 99222; 99285; Q9967

== ENCOUNTER → 2023-09-10 22:08 | Outpatient (BNV) | payer MEDICARE, SELFPAY | PROVIDERS: Admitting Provider Internal Medicine; Emergency Provider Emergency Medicine Emergency Medical Services; PCP Internal Medicine Medical Oncology; Visit Provider Internal Medicine Cardiovascular Disease | DX: R94.31 Abnormal electrocardiogram [ECG] [EKG] (principal) | CPT/HCPCS: 93010 ==

== ENCOUNTER → 2023-09-11 02:44 | Outpatient (BNV) | payer MEDICARE, SELFPAY | PROVIDERS: Admitting Provider Internal Medicine; Emergency Provider Emergency Medicine Emergency Medical Services; PCP Internal Medicine Medical Oncology; Visit Provider Psychiatry & Neurology Neurology | DX: R47.01 Aphasia (principal); R41.4 Neurologic neglect syndrome; H53.461 Homonymous bilateral field defects, right side | CPT/HCPCS: 99222 ==

== ENCOUNTER → 2023-09-11 02:44 | Outpatient (BNV) | payer MEDICARE, SELFPAY | PROVIDERS: Admitting Provider Internal Medicine; Emergency Provider Emergency Medicine Emergency Medical Services; PCP Internal Medicine Medical Oncology; Visit Provider Internal Medicine | DX: R47.01 Aphasia (principal) | CPT/HCPCS: 99222; 99239; 99499 ==

== ENCOUNTER 2023-10-04 09:59 | Outpatient (AMB) | payer MEDICARE, SELFPAY ==
[2023-10-04 10:35] LABS: Prothrombin Time Whole Bld POC 35.8 sec (11.1-13.5)
--- NOTE | 2023-10-04 10:41 | MHC.OFFVISCO ---
Intake Intake Visit Reasons: Anticoagulation Allergies indomethacin [From INDOCIN] Allergy (Intermediate, Verified 10/04/23 10:28) RASH oxycodone [OXYCODONE] Allergy (Intermediate, Verified 10/04/23 10:28) VOMITING/RASH Sulfa (Sulfonamide Antibiotics) [SULFA (SULFONAMIDE ANTIBIOTICS)] Allergy (Intermediate, Verified 10/04/23 10:28) BLISTERS, sore on the end of his penis acetaminophen [Percocet] Adverse Reaction (Unknown, Verified 10/04/23 10:28) vomiting Medication List - Last Reconciled 10/04/23 by Luci Connor RN atorvastatin 1 tab PO DAILY cholecalciferol (vitamin D3) 25 mcg PO DAILY lorazepam 0.5 mg PO DAILY PRN omeprazole 1 cap PO DAILY paroxetine HCl 40 mg PO DAILY paroxetine HCl 10 mg PO DAILY propranolol ER 1 cap PO DAILY pyridoxine (vitamin B6) 100 mg PO DAILY warfarin 2.5 mg PO 5XW warfarin 5 mg PO 2XW Nursing Note INR: 3.0 in therapeutic range Medications and supplements reviewed- NO CHANGES pt stated he is to have neurology eval and tests done to r/o TIA or seizures possibly r/t to some form of dementia- he was instructed to call with any medications within 1-2 days of starting and explained sometimes warfarin dose may need to be changed and he may need sooner INR - he stated he understood Denies any signs and symptoms of bleeding or bruising or clotting. Bleeding, bruising, clotting discussed Nutritional guidance given - to have 1 serving of greens / week Dose: 5mg x 2 days/ 2.5mg x 5 days F/U INR: 4 weeks Patient verbalizes understanding of instructions given Anti-Coag Initial Assessment Social Hx Patient Tobacco Use Status: Former Tobacco user Quit Date: 1989 Tobacco use type: Cigarette Alcohol intake frequency: former alcohol drinker Cardiovascular Hx: HTN, Arrhythmias and Varicose Veins Musculoskeletal Hx: Arthritis GI Hx: Other (GERD) Neurological Hx: Epilepsy/Seizures Cancer HX: No Psych. Illness/Depression: Yes (DEPRESSION) Coding Level of Care Code Est Patient Level 1 Diagnoses Current use of anticoagulant therapy Z79.01 Results AMB INR Fingerstick AMB INR Fingerstick 3.0 Last Edit by Luci Connor RN on 10/04/23 10:38 MANUAL ENTRY Assessment & Plan Assessment & Plan (1) Current use of anticoagulant therapy: Code(s): Z79.01 - intermediate (current) use of anticoagulants Category: Medical
== END 2023-10-04 10:46 | disposition home or self-care (01) ==
LOC: HO.ACS 09:59
PROVIDERS: PCP Internal Medicine Medical Oncology; Visit Provider Internal Medicine
DX: Z79.01 Long term (current) use of anticoagulants (principal)

== ENCOUNTER → 2023-10-04 09:59 | Outpatient (BNVA) | payer MEDICARE, SELFPAY | PROVIDERS: PCP Internal Medicine Medical Oncology; Visit Provider Internal Medicine | DX: I48.20 Chronic atrial fibrillation, unspecified (principal); Z51.81 Encounter for therapeutic drug level monitoring; Z79.01 Long term (current) use of anticoagulants | CPT/HCPCS: 85610; 99211 ==

== ENCOUNTER 2023-11-01 10:11 | Outpatient (AMB) | payer MEDICARE, SELFPAY ==
[2023-11-01 10:22] LABS: Prothrombin Time Whole Bld POC 39.5 sec (11.1-13.5); ~PT, ~INR - Anti Coag Clinic 3.3 (0.9-1.1)
--- NOTE | 2023-11-01 10:22 | MHC.OFFVISCO ---
Intake Intake Visit Reasons: Anticoagulation Allergies indomethacin [From INDOCIN] Allergy (Intermediate, Verified 11/01/23 10:18) RASH oxycodone [OXYCODONE] Allergy (Intermediate, Verified 11/01/23 10:18) VOMITING/RASH Sulfa (Sulfonamide Antibiotics) [SULFA (SULFONAMIDE ANTIBIOTICS)] Allergy (Intermediate, Verified 11/01/23 10:18) BLISTERS, sore on the end of his penis acetaminophen [Percocet] Adverse Reaction (Unknown, Verified 11/01/23 10:18) vomiting Medication List - Last Reconciled 11/01/23 by Isela Lozano, RN atorvastatin 1 tab PO DAILY cholecalciferol (vitamin D3) 25 mcg PO DAILY lorazepam 0.5 mg PO DAILY PRN omeprazole 1 cap PO DAILY paroxetine HCl 40 mg PO DAILY paroxetine HCl 10 mg PO DAILY propranolol ER 1 cap PO DAILY pyridoxine (vitamin B6) 100 mg PO DAILY warfarin 2.5 mg See Protocol PO 5XW warfarin 5 mg See Protocol PO 2XW Nursing Note INR 3.3-? out of therapeutic range of 2-3 Medications and supplements reviewed Patient status: pt awaiting neuro testing, he states ? dementia, not working due to 'episodes' Medications or supplements: no changes Diet: appetite good Denies any signs and symptoms of bleeding or clotting or unusual bruising Bleeding, bruising, clotting discussed Nutritional guidance given: eat a green today, no reds today Dose: 2.5mg today and tomm then cont 5mg x 2, 2.5mg x 5 F/U INR Date : 2 weeks?? Patient verbalizing understanding of instructions given. Anti-Coag Initial Assessment Social Hx Patient Tobacco Use Status: Former Tobacco user Quit Date: 1989 Tobacco use type: Cigarette Alcohol intake frequency: former alcohol drinker Cardiovascular Hx: HTN, Arrhythmias and Varicose Veins Musculoskeletal Hx: Arthritis GI Hx: Other (GERD) Neurological Hx: Epilepsy/Seizures Cancer HX: No Psych. 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
== END 2023-11-01 10:30 | disposition home or self-care (01) ==
LOC: HO.ACS 10:11
PROVIDERS: PCP Internal Medicine Medical Oncology; Visit Provider Internal Medicine
DX: Z79.01 Long term (current) use of anticoagulants (principal)

== ENCOUNTER → 2023-11-01 10:11 | Outpatient (BNVA) | payer MEDICARE, SELFPAY | PROVIDERS: PCP Internal Medicine Medical Oncology; Visit Provider Internal Medicine | DX: I48.20 Chronic atrial fibrillation, unspecified (principal); Z79.01 Long term (current) use of anticoagulants; Z51.81 Encounter for therapeutic drug level monitoring | CPT/HCPCS: 85610; 99211 ==

== ENCOUNTER 2023-11-15 09:46 | Outpatient (AMB) | payer MEDICARE, SELFPAY ==
[2023-11-15 09:58] LABS: Prothrombin Time Whole Bld POC 37.2 sec (11.1-13.5); ~PT, ~INR - Anti Coag Clinic 3.1 (0.9-1.1)
--- NOTE | 2023-11-15 10:09 | MHC.OFFVISCO ---
Intake Intake Visit Reasons: Anticoagulation Allergies indomethacin [From INDOCIN] Allergy (Intermediate, Verified 11/15/23 09:52) RASH oxycodone [OXYCODONE] Allergy (Intermediate, Verified 11/15/23 09:52) VOMITING/RASH Sulfa (Sulfonamide Antibiotics) [SULFA (SULFONAMIDE ANTIBIOTICS)] Allergy (Intermediate, Verified 11/15/23 09:52) BLISTERS, sore on the end of his penis acetaminophen [Percocet] Adverse Reaction (Unknown, Verified 11/15/23 09:52) vomiting Medication List - Last Reconciled 11/15/23 by Luci Connor, RN atorvastatin 1 tab PO DAILY cholecalciferol (vitamin D3) 25 mcg PO DAILY lorazepam 0.5 mg PO DAILY PRN omeprazole 1 cap PO DAILY paroxetine HCl 40 mg PO DAILY paroxetine HCl 10 mg PO DAILY propranolol ER 1 cap PO DAILY pyridoxine (vitamin B6) 100 mg PO DAILY warfarin 2.5 mg See Protocol PO 2XW Nursing Note INR: 3.1 in therapeutic range Medications and supplements reviewed No changes in health, diet, medications, or supplements, Denies any signs and symptoms of bleeding or bruising or clotting. Bleeding, bruising, clotting discussed Nutritional guidance given EAT A MIX OF FRUITS AND VEGETABLES Dose: 5MG X 1 DAY/ 2.5MG X 6 DAYS F/U INR: 2 WEEKS DUE TO DOSE CHANGE Patient verbalizes understanding of instructions given Anti-Coag Initial Assessment Social Hx Patient Tobacco Use Status: Former Tobacco user Tobacco use type: Cigarette Alcohol intake frequency: former alcohol drinker Cardiovascular Hx: HTN, Arrhythmias and Varicose Veins Musculoskeletal Hx: Arthritis GI Hx: Other (GERD) Neurological Hx: Epilepsy/Seizures Cancer HX: No Psych. Illness/Depression: Yes (DEPRESSION) Coding Level of Care Code Est Patient Level 1 Diagnoses Current use of anticoagulant therapy Z79.01 Results AMB INR Fingerstick AMB INR Fingerstick 3.1 Last Edit by Luci Connor RN on 11/15/23 10:01 MANUAL ENTRY Assessment & Plan Assessment & Plan (1) Current use of anticoagulant therapy: Code(s): Z79.01 - [facility] (current) use of anticoagulants Category: Medical
== END 2023-11-15 10:10 | disposition home or self-care (01) ==
LOC: HO.ACS 09:46
PROVIDERS: PCP Internal Medicine Medical Oncology; Visit Provider Internal Medicine
DX: Z79.01 Long term (current) use of anticoagulants (principal)

== ENCOUNTER → 2023-11-15 09:46 | Outpatient (BNVA) | payer MEDICARE, SELFPAY | PROVIDERS: PCP Internal Medicine Medical Oncology; Visit Provider Internal Medicine | DX: I48.20 Chronic atrial fibrillation, unspecified (principal); Z79.01 Long term (current) use of anticoagulants; Z51.81 Encounter for therapeutic drug level monitoring | CPT/HCPCS: 85610; 99211 ==

== ENCOUNTER 2023-11-26 09:49 | Outpatient (REF) | payer MEDICARE, SELFPAY ==
[2023-11-26 09:59] LABS: MANUAL DIFF FLAG NO
[2023-11-26 10:40] LABS: Basophils Absolute Auto 0.1 X10*3/uL (0.0-0.2); Basophils Percent Auto 1.1 % (0-2); Eosinophils Absolute Auto 0.4 X10*3/uL (0.0-0.4); Eosinophils Percent Auto 7.5 % (0-4); Hematocrit 41.6 % (42.0-52.0); Hemoglobin 13.9 g/dl (14.0-18.0); Imm Gran Abs Auto 0.01 X10*3/uL (0.00-0.03); Imm Gran Pct Auto 0.2 % (0.0-0.4); Lymphocytes Absolute Auto 1.1 X10*3/uL (1.2-4.9); Lymphocytes Percent Auto 19.9 % (20-40); Mean Corpuscular HGB Conc 33.4 g/dl (31.0-36.0); Mean Corpuscular Hemoglobin 29.7 pg (27.0-33.0); Mean Corpuscular Volume 88.9 fL (80.0-98.0); Mean Platelet Volume 9.7 fL (9.4-12.4); Monocytes Absolute Auto 0.6 X10*3/uL (0.1-1.2); Monocytes Percent Auto 11.2 % (2-11); Neutrophils Absolute Auto 3.3 x10*3/uL (2.0-8.3); Neutrophils Percent Auto 60.1 % (45-73); Platelet Count 297 X10*3/uL (160-400); Red Blood Count 4.68 X10*6/uL (4.60-5.80); Red Cell Distribution Width 12.7 % (11.0-16.0); White Blood Count 5.5 X10*3/uL (4.8-10.8)
[2023-11-26 11:24] LABS: Alanine Aminotransferase 21 U/L (0-40); Albumin Level 3.9 g/dL (3.5-5.0); Alkaline Phosphatase 90 U/L (39-117); Anion Gap 8 (12-20); Aspartate Amino Transferase 23 U/L (5-37); Bilirubin Total 0.7 mg/dL (0.0-1.0); Blood Urea Nitrogen 11 mg/dL (9-16); Calcium 9.5 mg/dL (8.4-10.2); Carbon Dioxide 30 mmol/L (22-29); Chloride 107 mmol/L (96-108); Cholesterol 123 mg/dL (<200); Estimated Glomerular Filt Rate > 60; Glucose Fasting 85 mg/dL (60-99); HDL Cholesterol 45 mg/dL (>40); LDL Cholesterol Calculated 60 mg/dL (<100); Potassium 3.9 mmol/L (3.3-5.1); Sodium 141 mmol/L (135-145); Triglycerides 92 mg/dL (<150)
== END 2023-11-26 09:50 | disposition home or self-care (01) ==
LOC: HO.LAB 09:49
PROVIDERS: PCP Internal Medicine Medical Oncology; Visit Provider Internal Medicine Medical Oncology
DX: I10 Essential (primary) hypertension (principal); E78.5 Hyperlipidemia, unspecified; N40.1 Benign prostatic hyperplasia with lower urinary tract symptoms; E66.3 Overweight; Z12.5 Encounter for screening for malignant neoplasm of prostate
CPT/HCPCS: 36415; 80053; 80061; 82306; 84153; 85025

== ENCOUNTER 2023-12-06 09:50 | Outpatient (AMB) | payer MEDICARE, SELFPAY ==
--- NOTE | 2023-12-06 10:16 | MHC.OFFVISCO ---
Intake Intake Visit Reasons: Anticoagulation Allergies indomethacin [From INDOCIN] Allergy (Intermediate, Verified 12/06/23 10:05) RASH oxycodone [OXYCODONE] Allergy (Intermediate, Verified 12/06/23 10:05) VOMITING/RASH Sulfa (Sulfonamide Antibiotics) [SULFA (SULFONAMIDE ANTIBIOTICS)] Allergy (Intermediate, Verified 12/06/23 10:05) BLISTERS, sore on the end of his penis acetaminophen [Percocet] Adverse Reaction (Unknown, Verified 12/06/23 10:05) vomiting Medication List - Last Reconciled 12/06/23 by Isela Lozano, NELSON atorvastatin 1 tab PO DAILY cholecalciferol (vitamin D3) 25 mcg PO DAILY lorazepam 0.5 mg PO DAILY PRN omeprazole 1 cap PO DAILY paroxetine HCl 10 mg PO DAILY propranolol ER 1 cap PO DAILY pyridoxine (vitamin B6) 100 mg PO DAILY warfarin 2.5 mg See Protocol PO 2XW Nursing Note INR 3.2-? out of therapeutic range of 2-3 Medications and supplements reviewed Patient status: pt with c.o forgetful, pt states having episodes in head- issues with speech and other issues. states having appt at [facility] end of december. has been [facility]. [facility] Medications or supplements: med list reviewed and updated Diet: same, goes to [employer] for lunch Denies any signs and symptoms of bleeding or clotting or unusual bruising Bleeding, bruising, clotting discussed Nutritional guidance given: eat greens today Dose: pt states has been taking 5mg on sunday- reduce weekly dose to 5mg x 1, 2.5mg x 6 F/U INR Date : 2 weeks?? Patient verbalizing understanding of instructions given. Anti-Coag Initial Assessment Social Hx Patient Tobacco Use Status: Former Tobacco user Tobacco use type: Cigarette Alcohol intake frequency: former alcohol drinker Cardiovascular Hx: HTN, Arrhythmias and Varicose Veins Musculoskeletal Hx: Arthritis GI Hx: Other (GERD) Neurological Hx: Epilepsy/Seizures Cancer HX: No Psych. 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
[2023-12-06 10:17] LABS: Prothrombin Time Whole Bld POC 37.9 sec (11.1-13.5); ~PT, ~INR - Anti Coag Clinic 3.2 (0.9-1.1)
== END 2023-12-06 10:39 | disposition home or self-care (01) ==
LOC: HO.ACS 09:50
PROVIDERS: PCP Internal Medicine Medical Oncology; Visit Provider Internal Medicine
DX: Z79.01 Long term (current) use of anticoagulants (principal)

== ENCOUNTER → 2023-12-06 09:50 | Outpatient (BNVA) | payer MEDICARE, SELFPAY | PROVIDERS: PCP Internal Medicine Medical Oncology; Visit Provider Internal Medicine | DX: I48.20 Chronic atrial fibrillation, unspecified (principal); Z79.01 Long term (current) use of anticoagulants; Z51.81 Encounter for therapeutic drug level monitoring | CPT/HCPCS: 85610; 99211 ==

== ENCOUNTER 2023-12-20 09:49 | Outpatient (AMB) | payer MEDICARE, SELFPAY ==
--- NOTE | 2023-12-20 10:18 | MHC.OFFVISCO ---
Intake Intake Visit Reasons: Anticoagulation Allergies indomethacin [From INDOCIN] Allergy (Intermediate, Verified 12/20/23 10:08) RASH oxycodone [OXYCODONE] Allergy (Intermediate, Verified 12/20/23 10:08) VOMITING/RASH Sulfa (Sulfonamide Antibiotics) [SULFA (SULFONAMIDE ANTIBIOTICS)] Allergy (Intermediate, Verified 12/20/23 10:08) BLISTERS, sore on the end of his penis acetaminophen [Percocet] Adverse Reaction (Unknown, Verified 12/20/23 10:08) vomiting Nursing Note INR: 2.6 in therapeutic range of 2-3 Medications and supplements reviewed No changes in health, diet, medications, or supplements, Denies any signs and symptoms of bleeding or bruising or clotting. Bleeding, bruising, clotting discussed Nutritional guidance given to continue to balance reds and greens Dose: 2.5mg X 6 days and 5mg X 1 day F/U INR: 2 weeks Patient verbalizes understanding of instructions given Anti-Coag Initial Assessment Social Hx Patient Tobacco Use Status: Former Tobacco user Tobacco use type: Cigarette Alcohol intake frequency: former alcohol drinker Cardiovascular Hx: HTN, Arrhythmias and Varicose Veins Musculoskeletal Hx: Arthritis GI Hx: Other (GERD) Neurological Hx: Epilepsy/Seizures Cancer HX: No Psych. Illness/Depression: Yes (DEPRESSION) Coding Level of Care Code Est Patient Level 1 Diagnoses Current use of anticoagulant therapy Z79.01 Results AMB INR Fingerstick AMB INR Fingerstick 2.6 Last Edit by Mya Dillard RN on 12/20/23 10:15 interface delay Assessment & Plan Assessment & Plan (1) Current use of anticoagulant therapy: Code(s): Z79.01 - residential (current) use of anticoagulants Category: Medical
[2023-12-20 10:20] LABS: Prothrombin Time Whole Bld POC 31.8 sec (11.1-13.5); ~PT, ~INR - Anti Coag Clinic 2.6 (0.9-1.1)
== END 2023-12-20 10:20 | disposition home or self-care (01) ==
LOC: HO.ACS 09:49
PROVIDERS: PCP Internal Medicine Medical Oncology; Visit Provider Internal Medicine
DX: Z79.01 Long term (current) use of anticoagulants (principal)

== ENCOUNTER → 2023-12-20 09:49 | Outpatient (BNVA) | payer MEDICARE, SELFPAY | PROVIDERS: PCP Internal Medicine Medical Oncology; Visit Provider Internal Medicine | DX: I48.20 Chronic atrial fibrillation, unspecified (principal); Z79.01 Long term (current) use of anticoagulants; Z51.81 Encounter for therapeutic drug level monitoring | CPT/HCPCS: 85610; 99211 ==

== ENCOUNTER 2023-12-29 18:16 | Emergency (ER) | payer OTHER, MEDICARE, SELFPAY ==
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
[2023-12-29 18:25] VITALS: BP 151/83; BP 158/94; PULSE 76; RESP 20; TEMP 36.9; O2SAT 98; O2SAT 99; BMI 26.2
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
[2023-12-29 20:05] LABS: MANUAL DIFF FLAG NO
[2023-12-29 20:06] LABS: Basophils Absolute Auto 0.1 X10*3/uL (0.0-0.2); Basophils Percent Auto 0.8 % (0-2); Eosinophils Absolute Auto 0.4 X10*3/uL (0.0-0.4); Eosinophils Percent Auto 5.6 % (0-4); Hematocrit 38.2 % (42.0-52.0); Hemoglobin 13.1 g/dl (14.0-18.0); Imm Gran Abs Auto 0.03 X10*3/uL (0.00-0.03); Imm Gran Pct Auto 0.5 % (0.0-0.4); Lymphocytes Absolute Auto 0.8 X10*3/uL (1.2-4.9); Lymphocytes Percent Auto 12.6 % (20-40); Mean Corpuscular HGB Conc 34.3 g/dl (31.0-36.0); Mean Corpuscular Volume 87.4 fL (80.0-98.0); Mean Platelet Volume 9.1 fL (9.4-12.4); Monocytes Absolute Auto 0.6 X10*3/uL (0.1-1.2); Monocytes Percent Auto 9.5 % (2-11); Neutrophils Absolute Auto 4.6 x10*3/uL (2.0-8.3); Platelet Count 254 X10*3/uL (160-400); Red Blood Count 4.37 X10*6/uL (4.60-5.80); Red Cell Distribution Width 12.7 % (11.0-16.0); White Blood Count 6.4 X10*3/uL (4.8-10.8)
[2023-12-29 20:25] LABS: Alanine Aminotransferase 20 U/L (0-40); Alkaline Phosphatase 87 U/L (39-117); Anion Gap 12 (12-20); Aspartate Amino Transferase 19 U/L (5-37); Bilirubin Direct 0.3 mg/dL (0.0-0.5); Blood Urea Nitrogen 13 mg/dL (9-16); Calcium 9.9 mg/dL (8.4-10.2); Carbon Dioxide 25 mmol/L (22-29); Chloride 107 mmol/L (96-108); Creatinine Clr Calc Pharmacy 64.2; Estimated Glomerular Filt Rate > 60; Ethanol < 10 mg/dL; Glucose Random 111 mg/dL (60-115); Potassium 4.3 mmol/L (3.3-5.1); Sodium 140 mmol/L (135-145); Total Protein 6.9 g/dL (6.5-8.0)
[2023-12-29 20:29] LABS: Troponin-I High Sensitivity 5.8 ng/L (<3.5-35.0)
[2023-12-29 20:49] VITALS: BP 154/93; PULSE 72; RESP 20; TEMP 37.1; O2SAT 98
[2023-12-29 20:49] LABS: Appearance Urine Clear; Color Urine Yellow; Glucose Urine UA Negative (Negative); Leukocyte Esterase Urine Negative (Negative); Nitrite Urine Negative (Negative); PH 6.5 (5.0-9.0); Specific Gravity - Urine 1.015 (1.005-1.025); Urine Blood Negative (Negative); Urine Ketones Negative (Negative); Urine Protein Negative (Neg-Trace)
[2023-12-29 21:27] LABS: INTERNATIONAL NORM RATIO 1.9 (0.9-1.1); Prothrombin Time 23.4 SEC (11.1-13.3)
[2023-12-29 23:18] LABS: Troponin-I High Sensitivity 6.4 ng/L (<3.5-35.0)
[2023-12-30] VITALS: BP 154/84; PULSE 72; RESP 18; TEMP 37.1; O2SAT 93
[2023-12-30 00:19] VITALS: BP 154/84; PULSE 72; RESP 18; TEMP 37.1; O2SAT 93
== END 2023-12-30 00:35 | disposition home or self-care (01) ==
PROVIDERS: Emergency Provider Emergency Medicine; PCP Internal Medicine Medical Oncology
DX: Z04.1 Encounter for examination and observation following transport accident (principal); R55 Syncope and collapse; I48.91 Unspecified atrial fibrillation; Z79.01 Long term (current) use of anticoagulants; Z87.891 Personal history of nicotine dependence
CPT/HCPCS: 36415; 71046; 80048; 80076; 80307; 81003; 84484; 85025; 85610; 93005; 99283; 99285

== ENCOUNTER → 2023-12-29 19:38 | Outpatient (BNV) | payer MEDICARE, SELFPAY | PROVIDERS: Emergency Provider Emergency Medicine; PCP Internal Medicine Medical Oncology; Visit Provider Internal Medicine Cardiovascular Disease | DX: R94.31 Abnormal electrocardiogram [ECG] [EKG] (principal) | CPT/HCPCS: 93010 ==

== ENCOUNTER 2024-01-07 13:21 | Outpatient (AMB) | payer MEDICARE, SELFPAY ==
[2024-01-07 13:26] LABS: Prothrombin Time Whole Bld POC 28.7 sec (11.1-13.5); ~PT, ~INR - Anti Coag Clinic 2.4 (0.9-1.1)
--- NOTE | 2024-01-07 13:36 | MHC.OFFVISCO ---
Intake Intake Visit Reasons: Anticoagulation Allergies indomethacin [From INDOCIN] Allergy (Intermediate, Verified 01/07/24 13:21) RASH oxycodone [OXYCODONE] Allergy (Intermediate, Verified 01/07/24 13:21) VOMITING/RASH Sulfa (Sulfonamide Antibiotics) [SULFA (SULFONAMIDE ANTIBIOTICS)] Allergy (Intermediate, Verified 01/07/24 13:21) BLISTERS, sore on the end of his penis acetaminophen [Percocet] Adverse Reaction (Unknown, Verified 01/07/24 13:21) vomiting Medication List - Last Reconciled 01/07/24 by Dena Wetzel, RN atorvastatin 1 tab PO DAILY cholecalciferol (vitamin D3) 25 mcg PO DAILY lorazepam 0.5 mg PO DAILY PRN omeprazole 1 cap PO DAILY paroxetine HCl 30 mg PO DAILY paroxetine HCl 10 mg PO DAILY propranolol ER 1 cap PO DAILY pyridoxine (vitamin B6) 100 mg PO DAILY tamsulosin 0.4 mg PO DAILY warfarin 2.5 mg See Protocol PO 2XW Nursing Note NO CP,SOB,DIET/MED CHANGES,FALLS OR SX OF BLEEDING. CONTINUE PRESENT DOSING AND FOLLOW-UP IN 3 WEEKS. GOOD UNDERSTANDING OF DOSING INSTR. Anti-Coag Initial Assessment Social Hx Patient Tobacco Use Status: Former Tobacco user Tobacco use type: Cigarette Alcohol intake frequency: former alcohol drinker Cardiovascular Hx: HTN, Arrhythmias and Varicose Veins Musculoskeletal Hx: Arthritis GI Hx: Other (GERD) Neurological Hx: Epilepsy/Seizures Cancer HX: No Psych. 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
== END 2024-01-07 13:38 | disposition home or self-care (01) ==
LOC: HO.ACS 13:21
PROVIDERS: PCP Internal Medicine Medical Oncology; Visit Provider Internal Medicine
DX: Z79.01 Long term (current) use of anticoagulants (principal)

== ENCOUNTER → 2024-01-07 13:21 | Outpatient (BNVA) | payer MEDICARE, SELFPAY | PROVIDERS: PCP Internal Medicine Medical Oncology; Visit Provider Internal Medicine | DX: I48.20 Chronic atrial fibrillation, unspecified (principal); Z79.01 Long term (current) use of anticoagulants; Z51.81 Encounter for therapeutic drug level monitoring | CPT/HCPCS: 85610; 99211 ==

== ENCOUNTER 2024-01-29 12:57 | Outpatient (AMB) | payer MEDICARE, SELFPAY ==
[2024-01-29 13:07] LABS: Prothrombin Time Whole Bld POC 33.2 sec (11.1-13.5); ~PT, ~INR - Anti Coag Clinic 2.8 (0.9-1.1)
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
== END 2024-01-29 13:24 | disposition home or self-care (01) ==
LOC: HO.ACS 12:57
PROVIDERS: PCP Internal Medicine Medical Oncology; Visit Provider Internal Medicine
DX: Z79.01 Long term (current) use of anticoagulants (principal)

== ENCOUNTER → 2024-01-29 12:57 | Outpatient (BNVA) | payer MEDICARE, SELFPAY | PROVIDERS: PCP Internal Medicine Medical Oncology; Visit Provider Internal Medicine | DX: I48.20 Chronic atrial fibrillation, unspecified (principal); Z79.01 Long term (current) use of anticoagulants; Z51.81 Encounter for therapeutic drug level monitoring | CPT/HCPCS: 85610; 99211 ==

== ENCOUNTER 2024-02-19 12:42 | Outpatient (REF) | payer MEDICARE, SELFPAY ==
[2024-02-19 12:58] LABS: MANUAL DIFF FLAG NO
[2024-02-19 13:31] LABS: Basophils Absolute Auto 0.1 X10*3/uL (0.0-0.2); Basophils Percent Auto 1.1 % (0-2); Eosinophils Absolute Auto 0.5 X10*3/uL (0.0-0.4); Eosinophils Percent Auto 6.8 % (0-4); Hematocrit 41.3 % (42.0-52.0); Hemoglobin 13.7 g/dl (14.0-18.0); Imm Gran Abs Auto 0.01 X10*3/uL (0.00-0.03); Imm Gran Pct Auto 0.1 % (0.0-0.4); Lymphocytes Absolute Auto 1.1 X10*3/uL (1.2-4.9); Lymphocytes Percent Auto 14.1 % (20-40); Mean Corpuscular HGB Conc 33.2 g/dl (31.0-36.0); Mean Corpuscular Hemoglobin 29.3 pg (27.0-33.0); Mean Corpuscular Volume 88.4 fL (80.0-98.0); Mean Platelet Volume 9.7 fL (9.4-12.4); Monocytes Absolute Auto 0.7 X10*3/uL (0.1-1.2); Monocytes Percent Auto 9.1 % (2-11); Neutrophils Absolute Auto 5.2 x10*3/uL (2.0-8.3); Neutrophils Percent Auto 68.8 % (45-73); Platelet Count 294 X10*3/uL (160-400); Red Blood Count 4.67 X10*6/uL (4.60-5.80); Red Cell Distribution Width 12.5 % (11.0-16.0); White Blood Count 7.5 X10*3/uL (4.8-10.8)
[2024-02-19 14:43] LABS: Alanine Aminotransferase 23 U/L (0-40); Albumin Level 3.9 g/dL (3.5-5.0); Alkaline Phosphatase 102 U/L (39-117); Anion Gap 9 (12-20); Aspartate Amino Transferase 19 U/L (5-37); Bilirubin Total 1.2 mg/dL (0.0-1.0); Blood Urea Nitrogen 11 mg/dL (9-16); Calcium 9.6 mg/dL (8.4-10.2); Carbon Dioxide 27 mmol/L (22-29); Chloride 103 mmol/L (96-108); Cholesterol 126 mg/dL (<200); Estimated Glomerular Filt Rate > 60; Glucose Random 97 mg/dL (60-115); HDL Cholesterol 43 mg/dL (>40); LDL Cholesterol Calculated 57 mg/dL (<100); Potassium 4.4 mmol/L (3.3-5.1); Sodium 135 mmol/L (135-145); Total Protein 6.9 g/dL (6.5-8.0); Triglycerides 133 mg/dL (<150)
[2024-02-19 15:01] LABS: Vitamin D 25-OH Total 36.1 ng/mL (>30)
[2024-02-19 15:22] LABS: Prostate Specific Antigen 2.74 ng/mL (<0.05-4.0)
== END 2024-02-19 12:43 | disposition home or self-care (01) ==
LOC: HO.LAB 12:42
PROVIDERS: PCP Internal Medicine Medical Oncology; Visit Provider Internal Medicine Medical Oncology
DX: N40.1 Benign prostatic hyperplasia with lower urinary tract symptoms (principal); E78.5 Hyperlipidemia, unspecified; E66.3 Overweight; Z12.5 Encounter for screening for malignant neoplasm of prostate; Z79.01 Long term (current) use of anticoagulants
CPT/HCPCS: 36415; 80053; 80061; 82306; 84153; 85025; 85610; 99211

== ENCOUNTER 2024-02-19 13:05 | Outpatient (AMB) | payer MEDICARE, SELFPAY ==
--- NOTE | 2024-02-19 13:47 | MHC.OFFVISCO ---
Intake Intake Visit Reasons: Anticoagulation Allergies indomethacin [From INDOCIN] Allergy (Intermediate, Verified 02/19/24 13:40) RASH oxycodone [OXYCODONE] Allergy (Intermediate, Verified 02/19/24 13:40) VOMITING/RASH Sulfa (Sulfonamide Antibiotics) [SULFA (SULFONAMIDE ANTIBIOTICS)] Allergy (Intermediate, Verified 02/19/24 13:40) BLISTERS, sore on the end of his penis acetaminophen [Percocet] Adverse Reaction (Unknown, Verified 02/19/24 13:40) vomiting Medication List - Last Reconciled 02/19/24 by Isela Lozano RN atorvastatin 1 tab PO DAILY cholecalciferol (vitamin D3) 25 mcg PO DAILY levetiracetam 750 mg PO BID lorazepam 0.5 mg PO DAILY PRN omeprazole 1 cap PO DAILY paroxetine HCl 30 mg PO DAILY paroxetine HCl 10 mg PO DAILY propranolol ER 1 cap PO DAILY pyridoxine (vitamin B6) 100 mg PO DAILY tamsulosin 0.4 mg PO DAILY warfarin 2.5 mg See Protocol PO 2XW Nursing Note INR: 2.6- in therapeutic range of 2-3 Medications and supplements reviewed- levitiracetam increased to 750mg bid per pt, no interaction per micromedex No changes in health, diet, medications, or supplements, Denies any signs and symptoms of bleeding or bruising or clotting. Bleeding, bruising, clotting discussed Nutritional guidance given Dose: 5mg x 1. 2.5mg x 6 F/U INR: 3 weeks Patient verbalizes understanding of instructions given Anti-Coag Initial Assessment Social Hx Patient Tobacco Use Status: Former Tobacco user Tobacco use type: Cigarette Alcohol intake frequency: former alcohol drinker Cardiovascular Hx: HTN, Arrhythmias and Varicose Veins Musculoskeletal Hx: Arthritis GI Hx: Other (GERD) Neurological Hx: Epilepsy/Seizures Cancer HX: No Psych. 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
[2024-02-19 13:48] LABS: Prothrombin Time Whole Bld POC 30.9 sec (11.1-13.5); ~PT, ~INR - Anti Coag Clinic 2.6 (0.9-1.1)
== END 2024-02-19 13:54 | disposition home or self-care (01) ==
LOC: HO.ACS 13:05
PROVIDERS: PCP Internal Medicine Medical Oncology; Visit Provider Internal Medicine
DX: Z79.01 Long term (current) use of anticoagulants (principal)

== ENCOUNTER 2024-03-11 13:06 | Outpatient (AMB) | payer MEDICARE, SELFPAY ==
[2024-03-11 13:15] LABS: Prothrombin Time Whole Bld POC 31.1 sec (11.1-13.5); ~PT, ~INR - Anti Coag Clinic 2.6 (0.9-1.1)
--- NOTE | 2024-03-11 13:21 | MHC.OFFVISCO ---
Intake Intake Visit Reasons: Anticoagulation Allergies indomethacin [From INDOCIN] Allergy (Intermediate, Verified 03/11/24 13:09) RASH oxycodone [OXYCODONE] Allergy (Intermediate, Verified 03/11/24 13:09) VOMITING/RASH Sulfa (Sulfonamide Antibiotics) [SULFA (SULFONAMIDE ANTIBIOTICS)] Allergy (Intermediate, Verified 03/11/24 13:09) BLISTERS, sore on the end of his penis acetaminophen [Percocet] Adverse Reaction (Unknown, Verified 03/11/24 13:09) vomiting Medication List - Last Reconciled 03/11/24 by Luci Connor, RN atorvastatin 1 tab PO DAILY cholecalciferol (vitamin D3) 25 mcg PO DAILY levetiracetam 750 mg PO BID lorazepam 0.5 mg PO DAILY PRN omeprazole 1 cap PO DAILY paroxetine HCl 30 mg PO DAILY paroxetine HCl 10 mg PO DAILY propranolol ER 1 cap PO DAILY pyridoxine (vitamin B6) 100 mg PO DAILY tamsulosin 0.4 mg PO DAILY warfarin 2.5 mg See Protocol PO 2XW Nursing Note INR: 2.6 in therapeutic range- DOING WELL Medications and supplements reviewed- SEIZURE MED INCREASED BUT NO WARAFARIN INTERACTION - STATES MAKING HIM A LITTLE MORE TIRED No changes in health, diet, medications, or supplements, Denies any signs and symptoms of bleeding or bruising or clotting. Bleeding, bruising, clotting discussed Nutritional guidance given - KEEP EATING A MIX OF FRUITS AND VEGETABLES Dose: KEEP SAME DOSE 5MG X 1 DAY/ 2.5MG X 6 DAYS F/U INR: 4 WEEKS Patient verbalizes understanding of instructions given Anti-Coag Initial Assessment Social Hx Patient Tobacco Use Status: Former Tobacco user Tobacco use type: Cigarette Alcohol intake frequency: former alcohol drinker Cardiovascular Hx: HTN, Arrhythmias and Varicose Veins Musculoskeletal Hx: Arthritis GI Hx: Other (GERD) Neurological Hx: Epilepsy/Seizures Cancer HX: No Psych. 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
== END 2024-03-11 13:23 | disposition home or self-care (01) ==
LOC: HO.ACS 13:06
PROVIDERS: PCP Internal Medicine Medical Oncology; Visit Provider Internal Medicine
DX: Z79.01 Long term (current) use of anticoagulants (principal)

== ENCOUNTER → 2024-03-11 13:06 | Outpatient (BNVA) | payer MEDICARE, SELFPAY | PROVIDERS: PCP Internal Medicine Medical Oncology; Visit Provider Internal Medicine | DX: I48.20 Chronic atrial fibrillation, unspecified (principal); Z79.01 Long term (current) use of anticoagulants; Z51.81 Encounter for therapeutic drug level monitoring | CPT/HCPCS: 85610; 99211 ==

== ENCOUNTER 2024-03-28 11:00 | Outpatient (AMB) | payer MEDICARE, SELFPAY ==
--- NOTE | 2024-03-28 11:01 | MHC.OFFVISCO ---
Intake Intake Visit Reasons: Anticoagulation Allergies indomethacin [From INDOCIN] Allergy (Intermediate, Verified 03/28/24 10:48) RASH oxycodone [OXYCODONE] Allergy (Intermediate, Verified 03/28/24 10:48) VOMITING/RASH Sulfa (Sulfonamide Antibiotics) [SULFA (SULFONAMIDE ANTIBIOTICS)] Allergy (Intermediate, Verified 03/28/24 10:48) BLISTERS, sore on the end of his penis acetaminophen [Percocet] Adverse Reaction (Unknown, Verified 03/28/24 10:48) vomiting Medication List - Last Reconciled 03/28/24 by Mya Dillard, RN atorvastatin 1 tab PO DAILY cholecalciferol (vitamin D3) 25 mcg PO DAILY levetiracetam 750 mg PO BID lorazepam 0.5 mg PO DAILY PRN omeprazole 1 cap PO DAILY paroxetine HCl 30 mg PO DAILY paroxetine HCl 10 mg PO DAILY propranolol ER 1 cap PO DAILY pyridoxine (vitamin B6) 100 mg PO DAILY tamsulosin 0.4 mg PO DAILY warfarin 2.5 mg See Protocol PO 2XW Nursing Note Pt to [facility] due to having nosebleeds X 3 days this week. He called his doctor Dr Walker who wanted pt to have INR checked today. INR: 2.3 in therapeutic range of 2-3. Last INR 2.6 Medications and supplements reviewed No changes in health, diet, medications, or supplements, Bleeding, bruising, clotting discussed. Pt denies bleeding other than the nosebleeds. Pt is thinking it might be the heat he recently has turned on. Pt may get saline rinse for nose. Nutritional guidance given to continue to balance reds and greens Dose: continue same dose of 2.5mg X 6 days and 5mg X 1 day F/U INR: 3 weeks Patient verbalizes understanding of instructions given T/C to Dr Walker's office. INR reported. Anti-Coag Initial Assessment Social Hx Patient Tobacco Use Status: Former Tobacco user Tobacco use type: Cigarette Alcohol intake frequency: former alcohol drinker Cardiovascular Hx: HTN, Arrhythmias and Varicose Veins Musculoskeletal Hx: Arthritis GI Hx: Other (GERD) Neurological Hx: Epilepsy/Seizures Cancer HX: No Psych. Illness/Depression: Yes (DEPRESSION) Coding Level of Care Code Est Patient Level 1 Diagnoses Current use of anticoagulant therapy Z79.01 Results AMB INR Fingerstick AMB INR Fingerstick 2.3 Last Edit by Mya Dillard RN on 03/28/24 10:54 interface delay Assessment & Plan Assessment & Plan (1) Current use of anticoagulant therapy: Code(s): Z79.01 - skilled nursing (current) use of anticoagulants Category: Medical
== END 2024-03-28 11:07 | disposition home or self-care (01) ==
LOC: HO.ACS 11:00
PROVIDERS: PCP Internal Medicine Medical Oncology; Visit Provider Internal Medicine
DX: Z79.01 Long term (current) use of anticoagulants (principal)

== ENCOUNTER → 2024-03-28 11:00 | Outpatient (BNVA) | payer MEDICARE, SELFPAY | PROVIDERS: PCP Internal Medicine Medical Oncology; Visit Provider Internal Medicine | DX: I48.20 Chronic atrial fibrillation, unspecified (principal); Z79.01 Long term (current) use of anticoagulants; Z51.81 Encounter for therapeutic drug level monitoring | CPT/HCPCS: 99211 ==

== ENCOUNTER 2024-04-18 13:14 | Outpatient (AMB) | payer MEDICARE, SELFPAY ==
[2024-04-18 13:32] LABS: Prothrombin Time Whole Bld POC 26.7 sec (11.1-13.5); ~PT, ~INR - Anti Coag Clinic 2.2 (0.9-1.1)
--- NOTE | 2024-04-18 13:33 | MHC.OFFVISCO ---
Intake Intake Visit Reasons: Anticoagulation Allergies indomethacin [From INDOCIN] Allergy (Intermediate, Verified 04/18/24 13:21) RASH oxycodone [OXYCODONE] Allergy (Intermediate, Verified 04/18/24 13:21) VOMITING/RASH Sulfa (Sulfonamide Antibiotics) [SULFA (SULFONAMIDE ANTIBIOTICS)] Allergy (Intermediate, Verified 04/18/24 13:21) BLISTERS, sore on the end of his penis acetaminophen [Percocet] Adverse Reaction (Unknown, Verified 04/18/24 13:21) vomiting Medication List - Last Reconciled 04/18/24 by Mya Dillard, RN atorvastatin 1 tab PO DAILY cholecalciferol (vitamin D3) 25 mcg PO DAILY levetiracetam 1,000 mg PO BID lorazepam 0.5 mg PO DAILY PRN omeprazole 1 cap PO DAILY paroxetine HCl 40 mg PO DAILY paroxetine HCl 10 mg PO DAILY propranolol ER 1 cap PO DAILY pyridoxine (vitamin B6) 100 mg PO DAILY tamsulosin 0.4 mg PO DAILY warfarin 2.5 mg See Protocol PO 2XW Nursing Note INR: 2.2 in therapeutic range of 2-3 Medications and supplements reviewed No changes in health, diet, medications, or supplements, Denies any signs and symptoms of bleeding or bruising or clotting. Bleeding, bruising, clotting discussed Nutritional guidance given Dose: 2.5mg X 6 days and 5mg X 1 day () F/U INR: 4 weeks Patient verbalizes understanding of instructions given Anti-Coag Initial Assessment Social Hx Patient Tobacco Use Status: Former Tobacco user Tobacco use type: Cigarette Alcohol intake frequency: former alcohol drinker Cardiovascular Hx: HTN, Arrhythmias and Varicose Veins Musculoskeletal Hx: Arthritis GI Hx: Other (GERD) Neurological Hx: Epilepsy/Seizures Cancer HX: No Psych. Illness/Depression: Yes (DEPRESSION) Coding Level of Care Code Est Patient Level 1 Diagnoses Current use of anticoagulant therapy Z79.01 Results AMB INR Fingerstick AMB INR Fingerstick 2.2 Last Edit by Mya Dillard RN on 04/18/24 13:31 interface delay Assessment & Plan Assessment & Plan (1) Current use of anticoagulant therapy: Code(s): Z79.01 - [facility] (current) use of anticoagulants Category: Medical
== END 2024-04-18 13:59 | disposition home or self-care (01) ==
LOC: HO.ACS 13:14
PROVIDERS: PCP Internal Medicine Medical Oncology; Visit Provider Internal Medicine
DX: Z79.01 Long term (current) use of anticoagulants (principal)

== ENCOUNTER → 2024-04-18 13:14 | Outpatient (BNVA) | payer MEDICARE, SELFPAY | PROVIDERS: PCP Internal Medicine Medical Oncology; Visit Provider Internal Medicine | DX: I48.20 Chronic atrial fibrillation, unspecified (principal); Z79.01 Long term (current) use of anticoagulants; Z51.81 Encounter for therapeutic drug level monitoring | CPT/HCPCS: 85610; 99211 ==

== ENCOUNTER 2024-05-16 13:10 | Outpatient (AMB) | payer MEDICARE, SELFPAY ==
[2024-05-16 13:15] LABS: Prothrombin Time Whole Bld POC 28.3 sec (11.1-13.5); ~PT, ~INR - Anti Coag Clinic 2.4 (0.9-1.1)
--- NOTE | 2024-05-16 13:19 | MHC.OFFVISCO ---
Intake Intake Visit Reasons: Anticoagulation Allergies indomethacin [From INDOCIN] Allergy (Intermediate, Verified 05/16/24 13:11) RASH oxycodone [OXYCODONE] Allergy (Intermediate, Verified 05/16/24 13:11) VOMITING/RASH Sulfa (Sulfonamide Antibiotics) [SULFA (SULFONAMIDE ANTIBIOTICS)] Allergy (Intermediate, Verified 05/16/24 13:11) BLISTERS, sore on the end of his penis acetaminophen [Percocet] Adverse Reaction (Unknown, Verified 05/16/24 13:11) vomiting Medication List - Last Reconciled 05/16/24 by Luci Connor RN atorvastatin 1 tab PO DAILY cholecalciferol (vitamin D3) 25 mcg PO DAILY levetiracetam 1,000 mg PO BID lorazepam 0.5 mg PO DAILY PRN omeprazole 1 cap PO DAILY paroxetine HCl 40 mg PO DAILY paroxetine HCl 10 mg PO DAILY propranolol ER 1 cap PO DAILY pyridoxine (vitamin B6) 100 mg PO DAILY pyridoxine (vitamin B6) mg PO tamsulosin 0.4 mg PO DAILY warfarin 2.5 mg See Protocol PO 2XW Nursing Note INR: 2.4 in therapeutic range Medications and supplements reviewed No changes in health, diet, medications, or supplements, Denies any signs and symptoms of bleeding or bruising or clotting. Bleeding, bruising, clotting discussed Nutritional guidance given Dose: KEEP SAME 5NG X 1 DAY/ 2.5MG X 6 DAYS F/U INR: 1 MONTH Patient verbalizes understanding of instructions given Anti-Coag Initial Assessment Social Hx Patient Tobacco Use Status: Former Tobacco user Tobacco use type: Cigarette Alcohol intake frequency: former alcohol drinker Cardiovascular Hx: HTN, Arrhythmias and Varicose Veins Musculoskeletal Hx: Arthritis GI Hx: Other (GERD) Neurological Hx: Epilepsy/Seizures Cancer HX: No Psych. Illness/Depression: Yes (DEPRESSION) Questionnaires HAS-BLED Does the patient had uncontrolled Hypertension?: No Does the patient have renal disease?: No Does the patient have liver disease?: No Does the patient have a history of stroke?: No Has the patient had major bleeding or predisposition to bleeding?: Yes (NOSE BLEED HX) Does the patient have labile INRs?: No Is the patient over 65 years of age?: Yes Is the patient on medications that gives them a predisposition to bleeding?: Yes Does the patient use alcohol?: No HAS-BLED Score: 3 CHADSVASC Age: 75 or over Gender: Male Does the patient have a history of CHF?: No Does the patient have a history of Hypertension?: Yes Does the patient have a history of Stroke/TIA/Thromboembolism?: No Does the patient have a history of Vascular Disease (prior MO, PAD or aortic plaque)?: Yes Does the patient have a history of Diabetes?: No CHADS VACS Score: 4 Vee Prediction Score Rsk VTE Active Cancer: No Previous VTE, excluding superficial vein thrombosis: No Reduced mobility: No Already known Thrombophilic Condition: No With-in last month Trauma and/or Surgery: No Elderly 70 year or older: Yes Heart and/or Respiratory Failure: No Acute Myocardial infarction and/or Ischemic Stroke: No Acute Infection and/or Rheumatologic Disorder: No Obesity (BMI 30 or greater): No Ongoing Hormonal Treatment: No Score: 1 Vee Score less than 4; Low Risk of VTE Vee Score 4 or greater; High Risk of VTE Coding Level of Care Code Est Patient Level 1 Diagnoses Current use of anticoagulant therapy Z79.01 Assessment & Plan Assessment & Plan (1) Current use of anticoagulant therapy: 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
--- OUTSIDE RECORDS SUMMARY | 2024-05-21 09:28 | XMS_ITS ---
Author Organization Chris Walker III, MD Address [address] [place] [address] [place] [address] Care Team Providers Care Personalized Living Manager Name Role Phone Chris Walker Primary Care Provider [facility] Social History Sex Assigned At : Social History Observation Description Sex Assigned At Male Encounters Encounter Location Date Provider Diagnosis Chris Walker III, MD [address] [place] [address] [place] [id number] 03/28/2024 Chris Walker Plan Of Treatment Next Appt Details Provider Name:Chris Walker, 07/30/2024 02:00:00 PM, [address] [place] [address] [place], [address], Provider Name:Chris Walker, 12/03/2024 04:00:00 PM, [address] [place] [address] [place], [address], Progress Notes * Reji LIU [birth year]DOB:10/1944 (79 yo M)Acc No.[id number]:03/28/2024 Patient:?Reji LIU Jr :1945???Age:79 Y???Sex:Male Address:[address] [place], [address] * true * Date:? Generated for Printi ng/Tawny/Edvinitting on:?05/21/2024 09:27 AM EST
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
--- OUTSIDE RECORDS SUMMARY | 2024-05-21 09:28 | XMS_ITS ---
Author Organization Chris Walker III, MD Address [address] [place] [address] [place] [address] Care Team Providers Care Claim Adjuster Name Role Phone Chris Walker Primary Care Provider REASON FOR VISIT Message Social History Sex Assigned At : Social History Observation Description Sex Assigned At Male Encounters Encounter Location Date Provider Diagnosis Chris Walker III, MD [address] [place] [address] [address] [facility] [place] [address] 03/27/2024 Chris Walker Plan Of Treatment Next Appt Details Provider Name:Chris Walker, 07/30/2024 02:00:00 PM, [address] [place] [address] [place], [address], Provider Name:Chris Walker, 12/03/2024 04:00:00 PM, [address] [place] [address] [place], [address], Progress Notes * Reji LIU [birth year]DOB:10/1944 (79 yo M)Acc No.[id number]:03/27/2024 Patient:?Reji LIU Jr :1945???Age:79 Y???Sex:Male Address:[address] [place] [address], [id number] * true * Date:? Generated for Trevor pool/Tawny/Edvinitting on:?05/21/2024 09:28 AM EST
--- OUTSIDE RECORDS SUMMARY | 2024-05-21 09:28 | XMS_ITS | Patient Health Record ---
Author Organization Chris Walker III, MD Address [address] [place] [address] [address] [place] [address] Care Team Providers Care Service Director Name Role Phone Chris Walker Primary Care Provider Allergies Allergen (clinical drug ingredient) Drug/Non Drug Allergy documented on EMR Reaction Allergy Type Onset Date Status Sulfamethoxazole-TMP DS Unknown Drug Allergy Active oxycodone Oxycodone HCl Unknown Drug Allergy Act hardeep indomethacin Indomethacin Unknown Drug Allergy A ctive indomethacin Indocin Unknown Drug Allergy Acti ve Results Component Value Reference Range Notes URINE DIP STICK Reviewed date:12/04/2023 12:42:17 PM Interpretation: Performing Lab: Notes/Report: SG 1.010 1.005 - 1.025 pH 6.5 5.0 - 9.0 DAPHNIE Negative Negative - NIT Negative Negative - PRO 15 Negative - Trace GLU Negative Negative - KET Negative Negative - UBG 0.2 0.1 - 1.8 QI Negative 0.2 - 1.3 BLD Negative Negative - Complete Blood Count Auto Di ff Reviewed date:05/22/2023 05:23:21 AM Interpretation: Performing Lab:[facility], [address] [place] [phone] Notes/Report: White Blood Count 6.3 4.8-10.8 X10*3/uL Red Blood Count 4.43 4.60-5.80 X10*6/uL Hemoglobin 13.0 14.0-18.0 g/dl Hematocrit 39.2 42.0-52.0 % Mean Corpuscular Volume 88.5 80.0-98.0 fL Mean Corpuscular Hemoglobin 29.3 27.0-33.0 pg Mean Corpuscular HGB Conc 33.2 31.0-36.0 g/dl Red Cell Distribution Width 12.7 11.0-16.0 % Platelet Count 260 160-400 X10*3/uL Mean Platelet Volume 10.5 9.4-12.4 fL Neutrophils Percent Auto 64.8 45-73 % Imm Gran Pct Auto 0.3 0.0-0.4 % Lymphocytes Percent Auto 16.1 20-40 % Monocytes Percent Auto 9.7 2-11 % Eosinophils Percent Auto 8.3 0-4 % Basophils Percent Auto 0.8 0-2 % NRBC Pct Auto 0.0 0.0-0.2 /100WBC Neutrophils Absolute Auto 4.1 2.0-8.3 x10*3/uL Imm Gran Abs Auto 0.02 0.00-0.03 X10*3/uL Lymphocytes Absolute Auto 1.0 1.2-4.9 X10*3/uL Monocytes Absolute Auto 0.6 0.1-1.2 X10*3/uL Eosinophils Absolute Auto 0.5 0.0-0.4 X10*3/uL Basophils Absolute Auto 0.1 0.0-0.2 X10*3/uL NRBC Abs Auto 0.000 0.0-0.012 X10*3/uL Comprehensive [place]. Panel Fa st Reviewed date:05/22/2023 05:23:21 AM Interpretation: Performing Lab:[facility], [address] [place] [phone] Notes/Report: Sodium 139 135-145 mmol/L Potassium 4.1 3.3-5.1 mmol/L Chloride 106 96-108 mmol/L Carbon Dioxide 26 22-29 mmol/L Anion Gap 11 12-20 Blood Urea Nitrogen 14 9-16 mg/dL Creatinine 1.04 0.5-1.4 mg/dL Estimated Glomerular Filt Rate > 60 NOTE: For -Northern Irish individuals, multiply the result by 1.210. Chronic Kidney Disease: Estimated GFR < 60 mL/min/1.73m2 Severe Kidney Disease: Estimated GFR < 15 mL/min/1.73m2 Glucose Fasting 109 60-99 mg/dL A fasting glucose from 100-125 mg/dl is considered impaired (pre-diabetes). Calcium 9.7 8.4-10.2 mg/dL Bilirubin Total 1.0 0.0-1.0 mg/dL Aspartate Amino Transferase 21 5-37 U/L Alanine Aminotransferase 19 0-40 U/L Total Protein 7.0 6.5-8.0 g/dL Albumin Level 3.9 3.5-5.0 g/dL Alkaline Phosphatase 87 39-117 U/L Lipid Panel Reviewed date:05/22/2023 05:23:21 AM Interpretation: Performing Lab:[address] [phone] Notes/Report: Triglycerides 146 <150 mg/dL Desirable Triglyceride: less than 150 mg/dL Borderline High Triglyceride 150-199 mg/dL High Triglyceride: 200-499 mg/dL Very High Triglyceride: greater than or equal to 5OO mg/dL Cholesterol 127 <200 mg/dL Desirable Cholesterol: less than 200 mg/dL Borderline High Cholesterol: 200-239 mg/dL High Cholesterol: greater than 239 mg/dL LDL Cholesterol Calculated 56 <100 mg/dL Desirable LDL: less than 100 mg/dL Near Optimal/Above Optimal LDL: 110-129 mg/dL Borderline High LDL: 130-159 mg/dL High LDL: 160-189 mg/dL Very High LDL: greater than or equal to 190 mg/dL HDL Cholesterol 42 >40 mg/dL Desirable HDL: greater than 40 mg/dL Note: This HDL assay may give artificially low results in patients with liver disease. Prostate Specific Antigen Reviewed date:05/22/2023 05:23:21 AM Interpretation: Performing Lab:[facility], [address] [place] [phone] Notes/Report: Prostate Specific Antigen 3.19 <0.05-4.0 ng/mL PSA methodology: [place] Alinity i Chemiluminescent Microparticle Immunoassay (CMIA) INR WHOLE BLOOD POC Reviewed date:05/22/2023 11:55:46 AM Interpretation: Performing Lab:[address] [phone] Notes/Report: PT, INR - [facility] 2.9 0.9-1.1 METER #: [id number] INTERNATIONAL NORMALIZED RATIO (INR) REFERENCE RANGES Reference Range For patients not on anticoagulant therapy: 0.9 - 1.1 INR ranges for oral anticoagulant therapy: For prevention and treatment of venous thrombosis and pulmonary embolism: 2.0 - 3.0 For acute myocardial infarction with aspirin therapy: 2.0 - 3.0 For acute myocardial infarction without aspirin therapy: 3.0 - 4.0 For patients with mechanical prosthetic heart valves: 2.5 - 3.5 Prothrombin Time Whole Bld P OC Reviewed date:05/22/2023 11:55:46 AM Interpretation: Performing Lab:[facility], [address] [place] [phone] Notes/Report: Prothrombin Time Whole Bld POC 34.3 11.1-13.5 sec INR WHOLE BLOOD POC Reviewed date:06/17/2023 06:54:03 PM Interpretation: Performing Lab:[facility], [address] [place] [phone] Notes/Report: PT, INR - [facility] 3.4 0.9-1.1 METER #: [id number] INTERNATIONAL NORMALIZED RATIO (INR) REFERENCE RANGES Reference Range For patients not on anticoagulant therapy: 0.9 - 1.1 INR ranges for oral anticoagulant therapy: For prevention and treatment of venous thrombosis and pulmonary embolism: 2.0 - 3.0 For acute myocardial infarction with aspirin therapy: 2.0 - 3.0 For acute myocardial infarction without aspirin therapy: 3.0 - 4.0 For patients with mechanical prosthetic heart valves: 2.5 - 3.5 Prothrombin Time Whole Bld P OC Reviewed date:06/17/2023 06:54:03 PM Interpretation: Performing Lab:[facility], [address] [place] [phone] Notes/Report: Prothrombin Time Whole Bld POC 40.4 11.1-13.5 sec INR WHOLE BLOOD POC Reviewed date:06/29/2023 11:20:26 AM Interpretation: Performing Lab:[facility], [address] [place] [phone] Notes/Report: PT, INR - [facility]ag [facility] 2.4 0.9-1.1 METER #: [id number] INTERNATIONAL NORMALIZED RATIO (INR) REFERENCE RANGES Reference Range For patients not on anticoagulant therapy: 0.9 - 1.1 INR ranges for oral anticoagulant therapy: For prevention and treatment of venous thrombosis and pulmonary embolism: 2.0 - 3.0 For acute myocardial infarction with aspirin therapy: 2.0 - 3.0 For acute myocardial infarction without aspirin therapy: 3.0 - 4.0 For patients with mechanical prosthetic heart valves: 2.5 - 3.5 Prothrombin Time Whole Bld P OC Reviewed date:06/29/2023 11:20:26 AM Interpretation: Performing Lab:[facility], [address] [place] [phone] Notes/Report: Prothrombin Time Whole Bld POC 28.6 11.1-13.5 sec INR WHOLE BLOOD POC Reviewed date:07/18/2023 03:23:44 PM Interpretation: Performing Lab:[facility], [address] [place] [phone] Notes/Report: PT, INR - [facility]ag [facility] 2.7 0.9-1.1 METER #: [id number] INTERNATIONAL NORMALIZED RATIO (INR) REFERENCE RANGES Reference Range For patients not on anticoagulant therapy: 0.9 - 1.1 INR ranges for oral anticoagulant therapy: For prevention and treatment of venous thrombosis and pulmonary embolism: 2.0 - 3.0 For acute myocardial infarction with aspirin therapy: 2.0 - 3.0 For acute myocardial infarction without aspirin therapy: 3.0 - 4.0 For patients with mechanical prosthetic heart valves: 2.5 - 3.5 Prothrombin Time Whole Bld P OC Reviewed date:07/18/2023 03:23:44 PM Interpretation: Performing Lab:[facility], [address] [place] [phone] Notes/Report: Prothrombin Time Whole Bld POC 31.9 11.1-13.5 sec INR WHOLE BLOOD POC Reviewed date:08/08/2023 01:56:01 PM Interpretation: Performing Lab:[facility], [address] [place] [phone] Notes/Report: PT, INR - Anti Coag Clinic 2.9 0.9-1.1 METER #: [id number] INTERNATIONAL NORMALIZED RATIO (INR) REFERENCE RANGES Reference Range For patients not on anticoagulant therapy: 0.9 - 1.1 INR ranges for oral anticoagulant therapy: For prevention and treatment of venous thrombosis and pulmonary embolism: 2.0 - 3.0 For acute myocardial infarction with aspirin therapy: 2.0 - 3.0 For acute myocardial infarction without aspirin therapy: 3.0 - 4.0 For patients with mechanical prosthetic heart valves: 2.5 - 3.5 Prothrombin Time Whole Bld P OC Reviewed date:08/08/2023 01:56:01 PM Interpretation: Performing Lab:[facility], [address] [place] [phone] Notes/Report: Prothrombin Time Whole Bld POC 34.5 11.1-13.5 sec Complete Blood Count Auto Di ff Reviewed date:09/01/2023 03:43:39 PM Interpretation: Performing Lab:[facility], [address] [place] [phone] Notes/Report: White Blood Count 6.5 4.8-10.8 X10*3/uL Red Blood Count 4.50 4.60-5.80 X10*6/uL Hemoglobin 13.2 14.0-18.0 g/dl Hematocrit 39.7 42.0-52.0 % Mean Corpuscular Volume 88.2 80.0-98.0 fL Mean Corpuscular Hemoglobin 29.3 27.0-33.0 pg Mean Corpuscular HGB Conc 33.2 31.0-36.0 g/dl Red Cell Distribution Width 12.7 11.0-16.0 % Platelet Count 315 160-400 X10*3/uL Mean Platelet Volume 10.0 9.4-12.4 fL Neutrophils Percent Auto 66.8 45-73 % Imm Gran Pct Auto 0.3 0.0-0.4 % Lymphocytes Percent Auto 14.1 20-40 % Monocytes Percent Auto 10.6 2-11 % Eosinophils Percent Auto 7.4 0-4 % Basophils Percent Auto 0.8 0-2 % NRBC Pct Auto 0.0 0.0-0.2 /100WBC Neutrophils Absolute Auto 4.4 2.0-8.3 x10*3/uL Imm Gran Abs Auto 0.02 0.00-0.03 X10*3/uL Lymphocytes Absolute Auto 0.9 1.2-4.9 X10*3/uL Monocytes Absolute Auto 0.7 0.1-1.2 X10*3/uL Eosinophils Absolute Auto 0.5 0.0-0.4 X10*3/uL Basophils Absolute Auto 0.1 0.0-0.2 X10*3/uL NRBC Abs Auto 0.000 0.0-0.012 X10*3/uL Comprehensive [place]. Panel Fa st Reviewed date:09/01/2023 03:43:39 PM Interpretation: Performing Lab:[facility], [address] [place] [phone] Notes/Report: Sodium 141 135-145 mmol/L Potassium 4.0 3.3-5.1 mmol/L Chloride 106 96-108 mmol/L Carbon Dioxide 27 22-29 mmol/L Anion Gap 12 12-20 Blood Urea Nitrogen 12 9-16 mg/dL Creatinine 0.97 0.5-1.4 mg/dL Estimated Glomerular Filt Rate > 60 NOTE: For -Northern Irish individuals, multiply the result by 1.210. Chronic Kidney Disease: Estimated GFR < 60 mL/min/1.73m2 Severe Kidney Disease: Estimated GFR < 15 mL/min/1.73m2 Glucose Fasting 101 60-99 mg/dL A fasting glucose from 100-125 mg/dl is considered impaired (pre-diabetes). Calcium 9.3 8.4-10.2 mg/dL Bilirubin Total 1.7 0.0-1.0 mg/dL Aspartate Amino Transferase 19 5-37 U/L Alanine Aminotransferase 18 0-40 U/L Total Protein 7.2 6.5-8.0 g/dL Albumin Level 3.9 3.5-5.0 g/dL Alkaline Phosphatase 101 39-117 U/L Lipid Panel Reviewed date:09/01/2023 03:43:39 PM Interpretation: Performing Lab:[facility], [address] [place] [phone] Notes/Report: Triglycerides 149 <150 mg/dL Desirable Triglyceride: less than 150 mg/dL Borderline High Triglyceride 150-199 mg/dL High Triglyceride: 200-499 mg/dL Very High Triglyceride: greater than or equal to 5OO mg/dL Cholesterol 121 <200 mg/dL Desirable Cholesterol: less than 200 mg/dL Borderline High Cholesterol: 200-239 mg/dL High Cholesterol: greater than 239 mg/dL LDL Cholesterol Calculated 53 <100 mg/dL Desirable LDL: less than 100 mg/dL Near Optimal/Above Optimal LDL: 110-129 mg/dL Borderline High LDL: 130-159 mg/dL High LDL: 160-189 mg/dL Very High LDL: greater than or equal to 190 mg/dL HDL Cholesterol 39 >40 mg/dL Desirable HDL: greater than 40 mg/dL Note: This HDL assay may give artificially low results in patients with liver disease. INR WHOLE BLOOD POC Reviewed date:09/08/2023 07:28:39 AM Interpretation: Performing Lab:[address] [phone] Notes/Report: PT, INR - Anti Coag Clinic 3.0 0.9-1.1 METER #: [id number] INTERNATIONAL NORMALIZED RATIO (INR) REFERENCE RANGES Reference Range For patients not on anticoagulant therapy: 0.9 - 1.1 INR ranges for oral anticoagulant therapy: For prevention and treatment of venous thrombosis and pulmonary embolism: 2.0 - 3.0 For acute myocardial infarction with aspirin therapy: 2.0 - 3.0 For acute myocardial infarction without aspirin therapy: 3.0 - 4.0 For patients with mechanical prosthetic heart valves: 2.5 - 3.5 Prothrombin Time Whole Bld P OC Reviewed date:09/08/2023 07:28:39 AM Interpretation: Performing Lab:[facility], [address] [place] [phone] Notes/Report: Prothrombin Time Whole Bld POC 35.5 11.1-13.5 sec Complete Blood Count Auto Di ff Reviewed date:09/14/2023 05:27:49 AM Interpretation: Performing Lab:[address] [phone] Notes/Report: White Blood Count 5.2 4.8-10.8 X10*3/uL Red Blood Count 4.66 4.60-5.80 X10*6/uL Hemoglobin 13.6 14.0-18.0 g/dl Hematocrit 41.1 42.0-52.0 % Mean Corpuscular Volume 88.2 80.0-98.0 fL Mean Corpuscular Hemoglobin 29.2 27.0-33.0 pg Mean Corpuscular HGB Conc 33.1 31.0-36.0 g/dl Red Cell Distribution Width 13.1 11.0-16.0 % Platelet Count 281 160-400 X10*3/uL Mean Platelet Volume 9.5 9.4-12.4 fL Neutrophils Percent Auto 54.0 45-73 % Imm Gran Pct Auto 0.2 0.0-0.4 % Lymphocytes Percent Auto 24.9 20-40 % Monocytes Percent Auto 11.2 2-11 % Eosinophils Percent Auto 8.9 0-4 % Basophils Percent Auto 0.8 0-2 % NRBC Pct Auto 0.0 0.0-0.2 /100WBC Neutrophils Absolute Auto 2.8 2.0-8.3 x10*3/uL Imm Gran Abs Auto 0.01 0.00-0.03 X10*3/uL Lymphocytes Absolute Auto 1.3 1.2-4.9 X10*3/uL Monocytes Absolute Auto 0.6 0.1-1.2 X10*3/uL Eosinophils Absolute Auto 0.5 0.0-0.4 X10*3/uL Basophils Absolute Auto 0.0 0.0-0.2 X10*3/uL NRBC Abs Auto 0.000 0.0-0.012 X10*3/uL Prothrombin Time INR Reviewed date:09/14/2023 05:27:49 AM Interpretation: Performing Lab:[address] [phone] Notes/Report: Prothrombin Time 29.1 11.1-13.3 SEC INTERNATIONAL NORM RATIO 2.4 0.9-1.1 INTERNATIONAL NORMALIZED RATIO (INR) REFERENCE RANGES Reference Range For patients not on anticoagulant therapy: 0.9 - 1.1 INR ranges for oral anticoagulant therapy: For prevention and treatment of venous thrombosis and pulmonary embolism: 2.0 - 3.0 For acute myocardial infarction with aspirin therapy: 2.0 - 3.0 For acute myocardial infarction without aspirin therapy: 3.0 - 4.0 For patients with mechanical prosthetic heart valves: 2.5 - 3.5 Liver Panel Reviewed date:09/14/2023 05:27:49 AM Interpretation: Performing Lab:[address] [phone] Notes/Report: Bilirubin Total 0.9 0.0-1.0 mg/dL Bilirubin Direct 0.3 0.0-0.5 mg/dL Aspartate Amino Transferase 22 5-37 U/L Alanine Aminotransferase 19 0-40 U/L Total Protein 7.4 6.5-8.0 g/dL Albumin Level 4.0 3.5-5.0 g/dL Alkaline Phosphatase 91 39-117 U/L Basic Metabolic Panel Reviewed date:09/14/2023 05:27:49 AM Interpretation: Performing Lab:[facility], [address] [place] [phone] Notes/Report: Sodium 141 135-145 mmol/L Potassium 4.5 3.3-5.1 mmol/L Chloride 108 96-108 mmol/L Carbon Dioxide 27 22-29 mmol/L Anion Gap 11 12-20 Blood Urea Nitrogen 13 9-16 mg/dL Creatinine 0.84 0.5-1.4 mg/dL Creatinine Clr Calc Pharmacy 81.5 eGFR (calculated from the MDRD study equation) and eCrCl (calculated from the Cockcroft-Gault equation) are based on different parameters and may not yield comparable results. If eCrCl result is absurd, please check patient's height/weight. Estimated Glomerular Filt Rate > 60 NOTE: For -Northern Irish individuals, multiply the result by 1.210. Chronic Kidney Disease: Estimated GFR < 60 mL/min/1.73m2 Severe Kidney Disease: Estimated GFR < 15 mL/min/1.73m2 Glucose Random 103 60-115 mg/dL Calcium 9.6 8.4-10.2 mg/dL Troponin-I High Sensitivity Reviewed date:09/14/2023 05:27:49 AM Interpretation: Performing Lab:[facility], [address] [place] [phone] Notes/Report: Troponin-I High Sensitivity 4.8 <3.5-35.0 ng/L [place] high sensitivity Troponin-I results should be used in conjunction with other diagnostic information such as ECG, clinical observations and information, and patient symptoms to aid in the diagnosis of [place]. Ethanol Reviewed date:09/14/2023 05:27:49 AM Interpretation: Performing Lab:[facility], [address] [place] [phone] Notes/Report: Ethanol < 10 Serum/plasma ethanol results are to be used for medical/treatment purposes only. CT head/brain wo con Reviewed date:09/14/2023 05:27:49 AM Interpretation: Performing Lab: Notes/Report: [address] [address] [address] Scan Report Signed Patient: Reji Tony Jr MR#: [id number] : 1945 Acct:[id number] Age/Sex: 78 / M ADM Date: 09/10/23 Loc: HO.ED Attending Dr: Ordering Physician: Ofelia Hong NP Date of Service: 09/10/23 Procedure(s): CT head/brain wo IV con Accession Number(s): [id number] cc: Chris Walker MD; Ofelia Hnog NP EXAMINATION: CT HEAD WITHOUT CONTRAST CLINICAL INFORMATION: Headache since months. COMPARISON: CT head without contrast 02/22/2022. TECHNIQUE: Contiguous axial imaging was performed from the skull base to vertex without intravenous administration of contrast. This CT examination was performed using dose optimization techniques as appropriate, variously including the following: *Automated exposure control *Adjustment of mA and/or kV according to patient size (this includes techniques or standardized protocols for targeted exams where dose is matched to indication/reason for exam; i.e. extremities or head) *Use of iterative reconstruction technique DLP: 838 mGy-cm FINDINGS: There is no evidence of acute intracranial hemorrhage or edematous territorial infarction. The ventricles and cortical sulci are proportional with mild volume loss. No mass effect, midline shift or extra-axial collection. Patchy hypodensities in the subcortical and periventricular white matter likely compatible with mild chronic microangiopathic changes. Again noted remote infarct within the right caudate. Mucous retention cyst within the frontal sinuses and right compartment of sphenoid sinuses. Included paranasal sinuses and mastoids are well-aerated. No acute osseous or soft tissue abnormality. Again noted partially empty sella. CT/CT head/brain wo IV con IMPRESSION: 1. No acute intracranial pathology. 2. Mild volume loss and chronic microangiopathic changes. Remote lacunar infarct in the right basal ganglia. Dictated By: Vik De Santiago Signed By: <Electronically signed by Vik De Santiago in [place]> 09/10/23 1816 DD/ 1719 TD/TT: [employer] Worker: [place] [address] [address] Scan Report Signed Patient: Reji Tony Jr MR#: [id number] : 1945 Acct:[id number] Age/Sex: 78 / M ADM Date: 09/10/23 Loc: HO.ED Attending Dr: Ordering Physician: Ofelia Hong NP Date of Service: 09/10/23 Procedure(s): CT head/brain wo IV con Accession Number(s): [id number] cc: Chris Walker MD; Ofelia Hong NP EXAMINATION: CT HEAD WITHOUT CONTRAST CLINICAL INFORMATION: Headache since months. COMPARISON: CT head without contrast 02/22/2022. TECHNIQUE: Contiguous axial imaging was performed from the skull base to vertex without intravenous administration of contrast. This CT examination was performed using dose optimization techniques as appropriate, various ly including the following: *Automated exposure control *Adjustment of mA and/or kV according to patient size (this includes techniques or standardized protocols for targeted exams where dose is matched to indication/reason for exam; i.e. extremities or head) *Use of iterative reconstruction technique DLP: 838 mGy-cm FINDINGS: There is no evidence of acute intracranial hemorrhage or edematous territorial infarcti on. The ventricles and cortical sulci are proportional with mi ld volume loss. No mass effect, midline shift or extra-axial collecti on. Patchy hypodensities in the subcortical and periventricular whit e matter likely compatible with mild chronic microangiopathic changes. Again noted remote infarct within the right caudate. Mucous retention cys t within the frontal sinuses and right compartment of sphenoid sinuses. Included paranasal sinuses and mastoids are well-aerated. No acu te osseous or soft tissue abnormality. Again noted partially empty sella. CT/CT head/brain wo IV con IMPRESSION: 1. No acute intracranial pathology. 2. Mild volume loss and chronic microangiopathic changes. Remote lacunar infarct in t he right basal ganglia. Dictated By: Vik De Santiago Signed By: <Electronically signed by Vik De Santiago in [place]> 09/10/231815 DD/ 18 TD/TT: [employer] Worker: Complete Blood Count Auto Di ff Reviewed date:09/14/2023 05:27:49 AM Interpretation: Performing Lab:[facility], [address] [place] [phone] Notes/Report: White Blood Count 5.7 4.8-10.8 X10*3/uL Red Blood Count 4.27 4.60-5.80 X10*6/uL Hemoglobin 12.6 14.0-18.0 g/dl Hematocrit 37.6 42.0-52.0 % Mean Corpuscular Volume 88.1 80.0-98.0 fL Mean Corpuscular Hemoglobin 29.5 27.0-33.0 pg Mean Corpuscular HGB Conc 33.5 31.0-36.0 g/dl Red Cell Distribution Width 13.0 11.0-16.0 % Platelet Count 244 160-400 X10*3/uL Mean Platelet Volume 10.1 9.4-12.4 fL Neutrophils Percent Auto 60.1 45-73 % Imm Gran Pct Auto 0.2 0.0-0.4 % Lymphocytes Percent Auto 21.2 20-40 % Monocytes Percent Auto 9.7 2-11 % Eosinophils Percent Auto 8.1 0-4 % Basophils Percent Auto 0.7 0-2 % NRBC Pct Auto 0.0 0.0-0.2 /100WBC Neutrophils Absolute Auto 3.4 2.0-8.3 x10*3/uL Imm Gran Abs Auto 0.01 0.00-0.03 X10*3/uL Lymphocytes Absolute Auto 1.2 1.2-4.9 X10*3/uL Monocytes Absolute Auto 0.6 0.1-1.2 X10*3/uL Eosinophils Absolute Auto 0.5 0.0-0.4 X10*3/uL Basophils Absolute Auto 0.0 0.0-0.2 X10*3/uL NRBC Abs Auto 0.000 0.0-0.012 X10*3/uL Basic Metabolic Panel Reviewed date:09/14/2023 05:27:49 AM Interpretation: Performing Lab:[facility], [address] [place] [phone] Notes/Report: Sodium 140 135-145 mmol/L Potassium 4.0 3.3-5.1 mmol/L Chloride 108 96-108 mmol/L Carbon Dioxide 25 22-29 mmol/L Anion Gap 11 12-20 Blood Urea Nitrogen 13 9-16 mg/dL Creatinine 0.78 0.5-1.4 mg/dL Creatinine Clr Calc Pharmacy 87.8 eGFR (calculated from the MDRD study equation) and eCrCl (calculated from the Cockcroft-Gault equation) are based on different parameters and may not yield comparable results. If eCrCl result is absurd, please check patient's height/weight. Estimated Glomerular Filt Rate > 60 NOTE: For -Northern Irish individuals, multiply the result by 1.210. Chronic Kidney Disease: Estimated GFR < 60 mL/min/1.73m2 Severe Kidney Disease: Estimated GFR < 15 mL/min/1.73m2 Glucose Random 81 60-115 mg/dL Calcium 8.9 8.4-10.2 mg/dL Vitamin B12 and Folate Reviewed date:09/14/2023 05:27:49 AM Interpretation: Performing Lab:[address] [phone] Notes/Report: Vitamin B12 392 200-900 pg/mL NORMAL 200-900 PG/ML INDETERMINATE 160-199 PG/ML DEFICIENT < 160 PG/ML Folate 7.1 > or = 4.0 ng/mL Reference Values: > or = 4.0 ng/mL < 4.0 ng/mL suggests folate deficiency Methotrexate, aminopterin and folinic acid (leucovorin) are chemotherapeutic agents whose molecular structures are similar to folate; therefore, the [employer] folate assay cannot be used for patients using these drugs. Thyroid Stimulating Hormone Reviewed date:09/14/2023 05:27:49 AM Interpretation: Performing Lab:[address] [phone] Notes/Report: Thyroid Stimulating Hormone 1.96 0.32-4.0 uIU/mL TSH 3rd Generation ([facility]) Drug Screen Urine Reviewed date:09/14/2023 05:27:49 AM Interpretation: Performing Lab:[address] [phone] Notes/Report: Opiate Screen Urine Not Detected Not Detect Opiate cut-off is 300 ng/mL. Positive results are unconfirmed and should not be used for non-medical purposes. Barbiturates, Urine Not Detected Not Detect Barbiturate cut-off is 200 ng/mL. Positive results are unconfirmed and should not be used for non-medical purposes. Phencyclidine Screen Urine Not Detected Not Detect Phencyclidine cut-off is 25 ng/mL. Positive results are unconfirmed and should not be used for non-medical purposes. Amphetamine Screen Urine Not Detected Not Detect Amphetamine cut-off is 1000 ng/mL. Positive results are unconfirmed and should not be used for non-medical purposes. Benzodiazepines Screen Urine Not Detected Not Detect Benzodiazepine cut-off is 200 ng/mL. Positive results are unconfirmed and should not be used for non-medical purposes. Cocaine Screen Urine Not Detected Not Detect Cocaine cut-off is 300 ng/mL. Positive results are unconfirmed and should not be used for non-medical purposes. Cannabinoid Screen Urine Not Detected Not Detect Cannabinoid cut-off is 50 ng/mL. Positive results are unconfirmed and should not be used for non-medical purposes. Fentanyl, urine Not Detected Not Detect Fentanyl cut-off is 1 ng/mL. Positive results are unconfirmed and should not be used for non-medical purposes. UA CC w/rflx Micro + Cult Reviewed date:09/14/2023 05:27:49 AM Interpretation: Performing Lab:[facility], [address] [place] [phone] Notes/Report: [id number] Urine, Clean Catch Color Urine Yellow Appearance Urine Clear PH 6.0 5.0-9.0 Glucose Urine UA Negative Negative mg/dL Urine Blood Negative Negative Specific [place] - Urine 1.015 1.005-1.025 Urine Protein Negative Neg-Trace mg/dL Urine Ketones Negative Negative mg/dL Nitrite Urine Negative Negative Leukocyte Esterase Urine Negative Negative CT angio head neck Reviewed date:09/14/2023 05:27:49 AM Interpretation: Performing Lab: Notes/Report: [address] [address] [address] Scan Report Signed Patient: Reji Tony Jr MR#: [id number] : 1945 Acct:[id number] Age/Sex: 78 / M ADM Date: 09/10/23 Loc: HO.ED Attending Dr: Ordering Physician: Leonie Fuchs MD Date of Service: 09/11/23 Procedure(s): CT angio head neck Accession Number(s): [id number] cc: Chris Walker MD; Leonie Fuchs MD EXAMINATION: CT ANGIOGRAM HEAD CT ANGIOGRAM NECK CLINICAL INFORMATION: Reason for Exam ? tia COMPARISON: CT head without contrast 09/10/2023 TECHNIQUE: Initial noncontrast curb hop imaging of the head and neck was performed. Noncontrast head CT was also performed. Test bolus sequences followed by intravenous administration 70 mL of Omnipaque 350. Helical imaging was performed in the axial plane from the aortic arch to the skull vertex. Delayed postcontrast imaging of the head was also performed. The data was processed at the neurodiagnostic technologist workstation for generation of MIP sequences. Angled MIPs and volume rendered reformatted images were also generated at an offline 3D workstation. Stenoses are assessed in accordance with NASCET criteria unless otherwise indicated. DLP: 2413.61 mGy-cm This CT examination was performed using dose optimization techniques as appropriate, variously including the following: *Automated exposure control. *Adjustment of mA and/or kV according to patient size (this includes techniques or standardized protocols for targeted exams where dose is matched to indication/reason for exam; i.e. extremities or head). *Use of iterative reconstruction technique. FINDINGS: CT Head: There is no evidence of acute intracranial hemorrhage or edematous territorial infarction. A few foci of hypoattenuation in the periventricular and deep white matter are consistent with mild microangiopathy. Chronic right basal ganglia lacunar infarct versus enlarged perivascular space. Wetzel-white matter differentiation is preserved. Proportional prominence of the ventricles and sulcal spaces. No evidence for obstructive hydrocephalus. No abnormal mass effect or midline shift. No extra-axial fluid collections. No pathologic intra-axial enhancement or regional oligemia. No acute soft tissue or osseous abnormalities. The mastoid air cells and paranasal sinuses are clear. CT Neck: The thyroid gland and remaining cervical soft tissues are within normal limits. Multilevel cervical spondylosis. CT Upper Chest: The visualized lung apices and upper mediastinum are within normal limits. Neck CTA: Aortic Arch: Normal contour and caliber. Classic 3 vessel branching pattern of the aortic arch. Great Vessel Origins: No significant stenosis of the branch origins. Right Common Carotid Artery: No focal stenosis or occlusion. Cervical Right Internal Carotid Artery: Mild calcific atherosclerotic disease of the carotid bulb and proximal internal carotid artery without flow-limiting stenosis. Left Common Carotid Artery: No focal stenosis or occlusion. Cervical Left Internal Carotid Artery: Mild calcific atherosclerotic disease of the carotid bulb and proximal internal carotid artery without flow-limiting stenosis. Cervical Right Vertebral Artery: No focal stenosis or occlusion. Cervical Left Vertebral Artery: No focal stenosis or occlusion. Brain CTA: Intracranial Internal Carotid Arteries: No focal stenosis or occlusion. Right Anterior Cerebral Artery: Normal A1 segment. Normal opacification of the distal CAREN segments. Left Anterior Cerebral Artery: Normal A1 segment. Normal opacification of the distal CAREN segments. Anterior Communicating Artery: Normal. Right Middle Cerebral Artery: Normal M1 segment of the MCA without focal stenosis or occlusion. Normal arborization of the distal segments. Left Middle Cerebral Artery: Normal M1 segment of the MCA without focal stenosis or occlusion. Normal arborization of the distal segments. Right Vertebral Artery: Normal V4 segment. Left Vertebral Artery: Normal V4 segment. Basilar Artery: Normal without focal stenosis or occlusion. Normal appearance of the proximal superior cerebellar arteries. Right Posterior Cerebral Artery: Normal P1 segment. Normal opacification of the distal LICENSED ELECTRICIAN segments. Left Posterior Cerebral Artery: Normal P1 segment. Normal opacification of the distal LICENSED ELECTRICIAN segments. Normal opacification of the superior sagittal, straight, transverse, and sigmoid sinuses. CT/CT angio head neck IMPRESSION: 1. No acute intracranial abnormality including hemorrhage, mass effect, hydrocephalus, or acute territorial edematous infarction. 2. No arterial high grade stenosis or large vessel occlusion in the head or neck. Dictated By: cSar Ramey Signed By: <Electronically signed by Scar Ramey in OV> 09/11/23 0219 DD/ 0125 TD/TT: [employer] Worker: [address] [address] [address] Scan Report Signed Patient: Reji Tony Jr MR#: [id number] : 1945 Acct:[id number] Age/Sex: 78 / M ADM Date: 09/10/23 Loc: HO.ED Attending Dr: Ordering Physician: Leonie Fuchs MD Date of Service: 09/11/23 Procedure(s): CT ang io head neck Accession Number(s): [id number] cc: Chris Walker MD; Leonie Fuchs MD EXAMINATION: CT ANGIOGRAM HEAD CT ANGIOGRAM NECK CLINICAL INFORMATION: Reason for Exam ? tia COMPARISON: CT head without contrast 09/10/2023 TECHNIQUE: Initial noncontrast curb hop imaging of the head and neck was performed. Noncontrast head CT was also performed. Test bolus sequences followed by intravenous administration 70 mL of Omnipaque 350. Helical imaging was performed in the axial plane from the aortic arch to the skull vertex. Delayed postcontrast imaging of the head was also performed. The data was process ed at the neurodiagnostic technologist workstation for generation of MIP sequences. Angled MIPs and volume rendered reformatted images w ere also generated at an offline 3D workstation. Stenoses are assesse d in accordance with NASCET criteria unless otherwise indicated. DLP: 2413.61 mGy-cm This CT examination was performed using dose optimization techniques as appropriate, various ly including the following: *Automated exposure control. *Adjustment of mA and/or kV according to patient size (this includes techniques or standardized protocols for targeted exams where dose is matched to indication/reason for exam; i.e. extremities or head). *Use of iterative reconstruction technique. FINDINGS: CT Head: There is no evidence of acute intracranial hemorrhage or edematous territorial infarcti on. A few foci of hypoattenuation in the periventricular and deep white matter are consistent with mild microangiopathy. Chronic right basal ganglia lacunar infarct versus enlarged perivascula r space. Wetzel-white matter differentiation is preserved. Proportio nal prominence of the ventricles and sulcal spaces. No evidence for obstructive hydrocephalus. No abnormal mass effect or midline shift. No extra-axial fluid collections. No pathologic intra-axial enhancement or regional oligemia. No acute soft tissue or osseous abnormalities. The mastoid air cells and paranasal sinuse s are clear. CT Neck: The thyroid gland an d remaining cervical soft tissues are within normal limits. Multilevel cervical spondylosis. CT Upper Chest: The visualized lung apices and upper mediastinum are within normal limits. Neck CTA: Aortic Arch: Normal contour and caliber. Classic 3 vessel branching pattern of the aorti c arch. Great Vessel Origins : No significant stenosis of the branch origins. Right Common Carotid Artery: No focal stenosis or occlusion. Cervical Right Inter nal Carotid Artery: Mild calcific atherosclerotic disease of the carot id bulb and proximal internal carotid artery without flow-limitin g stenosis. Left Common Carotid Artery: No focal stenosis or occlusion. Cervical Left Rn Building al Carotid Artery: Mild calcific atherosclerotic disease of the carot id bulb and proximal internal carotid artery without flow-limitin g stenosis. Cervical Right Vertebral Artery: No focal stenosis or occlusion. Cervical Left Verteb ral Artery: No focal stenosis or occlusion. Brain CTA: Intracranial Interna l Carotid Arteries: No focal stenosis or occlusion. Right Anterior Cereb ral Artery: Normal A1 segment. Normal opacification of the distal CAERN segments. Left Anterior Cerebr al Artery: Normal A1 segment. Normal opacification of the distal CAREN segments. Anterior Communicati ng Artery: Normal. Right Middle Cerebra l Artery: Normal M1 segment of the MCA without focal stenosis or occlusion. Normal arborization of the distal segments. Left Middle Cerebral Artery: Normal M1 segment of the MCA without focal stenosis or occlusio n. Normal arborization of the distal segments. Right Vertebral Susie ry: Normal V4 segment. Left Vertebral Arter y: Normal V4 segment. Basilar Artery: Norm al without focal stenosis or occlusion. Normal appearance of the proximal superior cerebellar arteries. Right Posterior Cerebral Artery: Normal P1 segment. Normal opacification of the distal LICENSED ELECTRICIAN segments. Left Posterior Cereb ral Artery: Normal P1 segment. Normal opacification of the distal LICENSED ELECTRICIAN segments. Normal opacification of the superior sagittal, straight, transverse, and sigmoid sinuses. CT/CT angio head neck IMPRESSION: 1. No acute intracranial abnormality including hemorrhage, mass effect, hydrocephalu s, or acute territorial edematous infarction. 2. No arterial high grade stenosis or large vessel occlusion in the head or neck. Dictated By: Scar Ramey Signed By: <Electronically signed by Scar Ramey in OV> 09/11/23 0219 DD/ 0125 TD/TT: [employer] Worker: MR head/brain wo con Reviewed date:09/14/2023 05:27:49 AM Interpretation: Performing Lab: Notes/Report: [address] [address] Magnetic Resonance Report Signed Patient: Reji Tony Jr MR#: [id number] : 1945 Acct:[id number] Age/Sex: 78 / M ADM Date: 09/11/23 Loc: [facility] [address]: Malik Huffman MD Ordering Physician: Ellis Lopez MD Date of Service: 09/11/23 Procedure(s): MR head/brain wo con Accession Number(s): [id number] cc: Chris Walker MD; Ellis Lopez MD EXAMINATION: MR BRAIN WITHOUT CONTRAST CLINICAL INFORMATION: Speech difficulty. COMPARISON: CTA head and neck from 09/11/2023. TECHNIQUE: MRI of the brain was obtained using routine sequences without contrast. FINDINGS: No focal restricted diffusion is demonstrated to suggest acute or subacute cerebral ischemia. No evidence of acute or chronic hemorrhagic products on heme-sensitive imaging. Scattered and partially confluent periventricular, deep white matter, and brainstem T2 FLAIR hyperintensities consistent with moderate underlying microangiopathy. Proportional prominence of the ventricles and sulcal spaces without evidence of obstructive hydrocephalus. No abnormal mass effect. No midline shift. Normal appearance of the pituitary gland. Normal positioning of the cerebellar tonsils. Normal arterial and venous vascular flow voids are present. Normal, homogeneous marrow signal. 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 Mild mucosal thickening of the paranasal sinuses. No signal abnormalities within the mastoids. MR/MR head/brain wo con IMPRESSION: 1. No acute intracranial abnormalities. 2. Moderate underlying microangiopathy and generalized cerebral volume loss. Dictated By: Trever Ortega DO Signed By: <Electronically signed by Trever Ortega DO in OV> 09/11/23 1621 DD/ 1236 TD/TT: [employer] Worker: [place] [id number] Magnetic Resonance Report Signed Patient: Reji Tony Jr MR#: [id number] : 1945 Acct:[id number] Age/Sex: 78 / M ADM Date: 09/11/23 Loc: [facility] [address]: Miguelina Huffman MD Ordering Physician: Ellis Lopez MD Date of Service: 09/11/23 Procedure(s): MR head/brain wo con Accession Number(s): [id number] cc: Chris Walker MD; Ellis Lopez MD EXAMINATION: MR BRAIN WITHOUT CONTRAST CLINICAL INFORMATION: Speech difficulty. COMPARISON: CTA head and neck fr 09/11/2023. TECHNIQUE: MRI of the brain was obtained using routine sequences without contrast. FINDINGS: No focal restricted diffusion is demonstrated to suggest acute or subacute cerebral ischemia. No evidence of acute or chronic hemorrhagic products on heme-sensitive imaging. Scattered and partially confluent periventricular, gavin p white matter, and brainstem T2 FLAIR hyperintensities consistent with moderate underlying microangiopathy. Proportional promine nce of the ventricles and sulcal spaces without evidence of obstruct hardeep hydrocephalus. No abnormal mass effect. No midline shift. Normal appearance of the pituitary gland. Normal positioning of the cerebellar tonsils. Normal arterial and venous vascular flow voids are present. Normal, homogeneous marrow signal. Subperiosteal lipoma along the left aspect of the fronta l bone, measuring up to 1.4 x 0.5 cm. Mild mucosal thickening of the paranasal sinuses. No signal abnormalities within the mastoids. MR/MR head/brain wo con IMPRESSION: 1. No acute intracranial abnormalities. 2. Moderate underlyi ng microangiopathy and generalized cerebral volume loss. Dictated By: Trever Ortega DO Signed By: <Electronically signed by Trever Ortega DO in OV> 09/11/23 1621 DD/ 1236 TD/TT: [employer] Worker: AILYN Hernandez - Possible Hematolo gy Reviewed date:09/14/2023 05:27:48 AM Interpretation: Performing Lab:[facility], [address] [place] [phone] Notes/Report: Hold Lav - Possible Hematology SEE NOTE Specimen will be held untested for 8 hours. Call Hematology if testing is desired. Prothrombin Time INR Reviewed date:09/14/2023 05:27:48 AM Interpretation: Performing Lab:[facility], [address] [place] [phone] Notes/Report: Prothrombin Time 28.4 11.1-13.3 SEC INTERNATIONAL NORM RATIO 2.3 0.9-1.1 INTERNATIONAL NORMALIZED RATIO (INR) REFERENCE RANGES Reference Range For patients not on anticoagulant therapy: 0.9 - 1.1 INR ranges for oral anticoagulant therapy: For prevention and treatment of venous thrombosis and pulmonary embolism: 2.0 - 3.0 For acute myocardial infarction with aspirin therapy: 2.0 - 3.0 For acute myocardial infarction without aspirin therapy: 3.0 - 4.0 For patients with mechanical prosthetic heart valves: 2.5 - 3.5 Hold Green Gel Reviewed date:09/14/2023 05:27:48 AM Interpretation: Performing Lab:[facility], [address] [place] [phone] Notes/Report: Hold Green Gel See Note Specimen held untested for 24 hours; Call to request Chemistry testing. INR WHOLE BLOOD POC Reviewed date:10/05/2023 04:55:55 AM Interpretation: Performing Lab:[facility], [address] [place] [phone] Notes/Report: PT, INR - Anti Coag Clinic 3.0 0.9-1.1 METER #: [id number] INTERNATIONAL NORMALIZED RATIO (INR) REFERENCE RANGES Reference Range For patients not on anticoagulant therapy: 0.9 - 1.1 INR ranges for oral anticoagulant therapy: For prevention and treatment of venous thrombosis and pulmonary embolism: 2.0 - 3.0 For acute myocardial infarction with aspirin therapy: 2.0 - 3.0 For acute myocardial infarction without aspirin therapy: 3.0 - 4.0 For patients with mechanical prosthetic heart valves: 2.5 - 3.5 Prothrombin Time Whole Bld P OC Reviewed date:10/05/2023 04:55:55 AM Interpretation: Performing Lab:[facility], [address] [place] [phone] Notes/Report: Prothrombin Time Whole Bld POC 35.8 11.1-13.5 sec INR WHOLE BLOOD POC Reviewed date:11/01/2023 10:54:06 AM Interpretation: Performing Lab:[facility], [address] [place] [phone] Notes/Report: PT, INR - Anti Coag Clinic 3.3 0.9-1.1 METER #: [id number] INTERNATIONAL NORMALIZED RATIO (INR) REFERENCE RANGES Reference Range For patients not on anticoagulant therapy: 0.9 - 1.1 INR ranges for oral anticoagulant therapy: For prevention and treatment of venous thrombosis and pulmonary embolism: 2.0 - 3.0 For acute myocardial infarction with aspirin therapy: 2.0 - 3.0 For acute myocardial infarction without aspirin therapy: 3.0 - 4.0 For patients with mechanical prosthetic heart valves: 2.5 - 3.5 Prothrombin Time Whole Bld P OC Reviewed date:11/01/2023 10:54:06 AM Interpretation: Performing Lab:[facility], [address] [place] [phone] Notes/Report: Prothrombin Time Whole Bld POC 39.5 11.1-13.5 sec INR WHOLE BLOOD POC Reviewed date:11/17/2023 05:37:31 AM Interpretation: Performing Lab:[facility], [address] [place] [phone] Notes/Report: PT, INR - Anti Coag Clinic 3.1 0.9-1.1 METER #: [id number] INTERNATIONAL NORMALIZED RATIO (INR) REFERENCE RANGES Reference Range For patients not on anticoagulant therapy: 0.9 - 1.1 INR ranges for oral anticoagulant therapy: For prevention and treatment of venous thrombosis and pulmonary embolism: 2.0 - 3.0 For acute myocardial infarction with aspirin therapy: 2.0 - 3.0 For acute myocardial infarction without aspirin therapy: 3.0 - 4.0 For patients with mechanical prosthetic heart valves: 2.5 - 3.5 Prothrombin Time Whole Bld P OC Reviewed date:11/17/2023 05:37:31 AM Interpretation: Performing Lab:[facility], [address] [place] [phone] Notes/Report: Prothrombin Time Whole Bld POC 37.2 11.1-13.5 sec Complete Blood Count Auto Di ff Reviewed date:12/01/2023 05:55:56 PM Interpretation: Performing Lab:[address] [phone] Notes/Report: White Blood Count 5.5 4.8-10.8 X10*3/uL Red Blood Count 4.68 4.60-5.80 X10*6/uL Hemoglobin 13.9 14.0-18.0 g/dl Hematocrit 41.6 42.0-52.0 % Mean Corpuscular Volume 88.9 80.0-98.0 fL Mean Corpuscular Hemoglobin 29.7 27.0-33.0 pg Mean Corpuscular HGB Conc 33.4 31.0-36.0 g/dl Red Cell Distribution Width 12.7 11.0-16.0 % Platelet Count 297 160-400 X10*3/uL Mean Platelet Volume 9.7 9.4-12.4 fL Neutrophils Percent Auto 60.1 45-73 % Imm Gran Pct Auto 0.2 0.0-0.4 % Lymphocytes Percent Auto 19.9 20-40 % Monocytes Percent Auto 11.2 2-11 % Eosinophils Percent Auto 7.5 0-4 % Basophils Percent Auto 1.1 0-2 % NRBC Pct Auto 0.0 0.0-0.2 /100WBC Neutrophils Absolute Auto 3.3 2.0-8.3 x10*3/uL Imm Gran Abs Auto 0.01 0.00-0.03 X10*3/uL Lymphocytes Absolute Auto 1.1 1.2-4.9 X10*3/uL Monocytes Absolute Auto 0.6 0.1-1.2 X10*3/uL Eosinophils Absolute Auto 0.4 0.0-0.4 X10*3/uL Basophils Absolute Auto 0.1 0.0-0.2 X10*3/uL NRBC Abs Auto 0.000 0.0-0.012 X10*3/uL Comprehensive [place]. Panel Fa st Reviewed date:12/01/2023 05:55:56 PM Interpretation: Performing Lab:[facility], [address] [place] [phone] Notes/Report: Sodium 141 135-145 mmol/L Potassium 3.9 3.3-5.1 mmol/L Chloride 107 96-108 mmol/L Carbon Dioxide 30 22-29 mmol/L Anion Gap 8 12-20 Blood Urea Nitrogen 11 9-16 mg/dL Creatinine 0.99 0.5-1.4 mg/dL Estimated Glomerular Filt Rate > 60 NOTE: For -Northern Irish individuals, multiply the result by 1.210. Chronic Kidney Disease: Estimated GFR < 60 mL/min/1.73m2 Severe Kidney Disease: Estimated GFR < 15 mL/min/1.73m2 Glucose Fasting 85 60-99 mg/dL Calcium 9.5 8.4-10.2 mg/dL Bilirubin Total 0.7 0.0-1.0 mg/dL Aspartate Amino Transferase 23 5-37 U/L Alanine Aminotransferase 21 0-40 U/L Total Protein 7.0 6.5-8.0 g/dL Albumin Level 3.9 3.5-5.0 g/dL Alkaline Phosphatase 90 39-117 U/L Lipid Panel Reviewed date:12/01/2023 05:55:56 PM Interpretation: Performing Lab:[address] [phone] Notes/Report: Triglycerides 92 <150 mg/dL Desirable Triglyceride: less than 150 mg/dL Borderline High Triglyceride 150-199 mg/dL High Triglyceride: 200-499 mg/dL Very High Triglyceride: greater than or equal to 5OO mg/dL Cholesterol 123 <200 mg/dL Desirable Cholesterol: less than 200 mg/dL Borderline High Cholesterol: 200-239 mg/dL High Cholesterol: greater than 239 mg/dL LDL Cholesterol Calculated 60 <100 mg/dL Desirable LDL: less than 100 mg/dL Near Optimal/Above Optimal LDL: 110-129 mg/dL Borderline High LDL: 130-159 mg/dL High LDL: 160-189 mg/dL Very High LDL: greater than or equal to 190 mg/dL HDL Cholesterol 45 >40 mg/dL Desirable HDL: greater than 40 mg/dL Note: This HDL assay may give artificially low results in patients with liver disease. Prostate Specific Antigen Reviewed date:12/01/2023 05:55:56 PM Interpretation: Performing Lab:[address] [phone] Notes/Report: Prostate Specific Antigen 2.40 <0.05-4.0 ng/mL PSA methodology: [place] [employer] i Chemiluminescent Microparticle Immunoassay (CMIA) Vitamin D 25-OH Total Reviewed date:12/01/2023 05:55:56 PM Interpretation: Performing Lab:[address] [phone] Notes/Report: Vitamin D 25-OH Total 34.0 >30 ng/mL Health Based Reference Values* < 20 ng/mL Deficient 20-30 ng/mL Insufficient > 30 ng/mL Sufficient *Jose BENNETT. N Engl J Med. 2007;357:266-280 Care must be taken in interpreting Vitamin D results from different laboratories and methodologies. Published data demonstrated that results from patients undergoing hemodialysis may show a negative bias when tested with various automated 25-OH vitamin D assays when compared to LC-MS/MS. When testing samples from patients whose predominant form of Vitamin D is Vitamin D2, such as patients receiving Vitamin D2 supplementation, results that are subtherapeutic should be confirmed with another method such as LC-MS/MS. INR WHOLE BLOOD POC Reviewed date:12/08/2023 04:11:05 AM Interpretation: Performing Lab:[facility], [address] [place] [phone] Notes/Report: PT, INR - Anti Coag Clinic 3.2 0.9-1.1 METER #: [id number] INTERNATIONAL NORMALIZED RATIO (INR) REFERENCE RANGES Reference Range For patients not on anticoagulant therapy: 0.9 - 1.1 INR ranges for oral anticoagulant therapy: For prevention and treatment of venous thrombosis and pulmonary embolism: 2.0 - 3.0 For acute myocardial infarction with aspirin therapy: 2.0 - 3.0 For acute myocardial infarction without aspirin therapy: 3.0 - 4.0 For patients with mechanical prosthetic heart valves: 2.5 - 3.5 Prothrombin Time Whole Bld P OC Reviewed date:12/08/2023 04:11:05 AM Interpretation: Performing Lab:[facility], [address] [place] [phone] Notes/Report: Prothrombin Time Whole Bld POC 37.9 11.1-13.5 sec INR WHOLE BLOOD POC Reviewed date:12/21/2023 07:45:27 PM Interpretation: Performing Lab:[facility], [address] [place] [phone] Notes/Report: PT, INR - Anti Coag Clinic 2.6 0.9-1.1 METER #: [id number] INTERNATIONAL NORMALIZED RATIO (INR) REFERENCE RANGES Reference Range For patients not on anticoagulant therapy: 0.9 - 1.1 INR ranges for oral anticoagulant therapy: For prevention and treatment of venous thrombosis and pulmonary embolism: 2.0 - 3.0 For acute myocardial infarction with aspirin therapy: 2.0 - 3.0 For acute myocardial infarction without aspirin therapy: 3.0 - 4.0 For patients with mechanical prosthetic heart valves: 2.5 - 3.5 Prothrombin Time Whole Bld P OC Reviewed date:12/21/2023 07:45:27 PM Interpretation: Performing Lab:[facility], [address] [place] [phone] Notes/Report: Prothrombin Time Whole Bld POC 31.8 11.1-13.5 sec Complete Blood Count Auto Di ff Reviewed date:01/01/2024 06:46:31 AM Interpretation: Performing Lab:[facility], [address] [place] [phone] Notes/Report: White Blood Count 6.4 4.8-10.8 X10*3/uL Red Blood Count 4.37 4.60-5.80 X10*6/uL Hemoglobin 13.1 14.0-18.0 g/dl Hematocrit 38.2 42.0-52.0 % Mean Corpuscular Volume 87.4 80.0-98.0 fL Mean Corpuscular Hemoglobin 30.0 27.0-33.0 pg Mean Corpuscular HGB Conc 34.3 31.0-36.0 g/dl Red Cell Distribution Width 12.7 11.0-16.0 % Platelet Count 254 160-400 X10*3/uL Mean Platelet Volume 9.1 9.4-12.4 fL Neutrophils Percent Auto 71.0 45-73 % Imm Gran Pct Auto 0.5 0.0-0.4 % Lymphocytes Percent Auto 12.6 20-40 % Monocytes Percent Auto 9.5 2-11 % Eosinophils Percent Auto 5.6 0-4 % Basophils Percent Auto 0.8 0-2 % NRBC Pct Auto 0.0 0.0-0.2 /100WBC Neutrophils Absolute Auto 4.6 2.0-8.3 x10*3/uL Imm Gran Abs Auto 0.03 0.00-0.03 X10*3/uL Lymphocytes Absolute Auto 0.8 1.2-4.9 X10*3/uL Monocytes Absolute Auto 0.6 0.1-1.2 X10*3/uL Eosinophils Absolute Auto 0.4 0.0-0.4 X10*3/uL Basophils Absolute Auto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
--- OUTSIDE RECORDS SUMMARY | 2024-05-21 09:28 | XMS_ITS ---
Author Name [facility] [place] [facility] [facility] [place] Address [address] [place] [address] Care Team Providers Care Biomass Boiler Operator Name Role Phone SUNIL MONSIVAIS Primary Care Provider Unavailabl e Insurance Providers: All historical and current Section Date Range: From patient's date of to the date document was created. This section includes the names of all active insurance providers for the patient. Insurance Provider Type of Coverage Plan Name Start of Policy Coverage End of Policy Coverage Group Number Member ID Insurance Provider's Telephone Number Policy Amaya's Name Patient's Relationship to Policy Amaya [facility] (WNR) MEDICARE ADVANTAGE [facility] (WNR) Jun 11, 2023 [id number] SANDRA LIU PATIENT Selected Encounter This section includes the information on record at [place] for the Encounter. Date/Time Encounter Type Encounter Description Reason Pro vider Source November 02, 2023 09:55 AM Outpatient Encounter ADMIN PAT ACTIVTIES (MASNONCT) IHE Encounter Template Text not used by [place] Plan of Treatment: Future Appointments (+ 6 months) and Future Tests (+/- 45 days) The Plan of Treatment section includes future care activities for the patient from all VA treatmentfacilities. This section includes future appointments and future orders which are active, pending or scheduled. Future Appointments This section includes appointments that were scheduled to occur 6 months from the date of the Encounter, up to a maximum of 20 appointments. The data comes from all [place] treatment facilities. Appointment Date/Time Appointment Type Appointme nt Facility Name Dec 05, 2023 02:00 PM AMBULATORY - MEDICINE [place] [facility] Advance Directives: All historical and current Section Date Range: From patient's date of to the date document was created. This section includes ALL of a patient's completed or amended [place] Advance and Rescinded Directives. The entries below indicate that a directive exists for the patient, but an actual copy is not included with this document. The data comes from all [place] facilities. Date Advance Directives Provider Source Dec 05, 2023 ADVANCE DIRECTIVE DELIA DEL VALLE [place] [facility] Encounter Notes: All associated encounter notes This section contains the clinical notes associated to the Encounter. Date/Time Encounter Note(s) Provider Source November 02, 2023 10:34 AM ADDENDUM: LOCAL TITLE: Addendum STANDARD TITLE: ADDENDUM DATE OF NOTE: NOVEMBER 02, 2023@10:34:52 ENTRY DATE: NOVEMBER 02, 2023@10:34:53 AUTHOR: GRADY MIN EXP COSIGNER: URGENCY: STATUS: COMPLETED Please call to [facility]. /malka/ GRADY MIN HUMANITIES TEACHER SOLO Signed: 11/02/2023 10:35 Receipt Acknowledged By: 11/13/2023 10:38 /malka/ ELLEN ADEN MSN Ed., BSN ORDAINED MINISTER NURSE === --- Original Document --- 11/02/23 CCC: SCHEDULING ADMINISTRATION: Patient Demographics Patient Name: SANDRA LIU Patient Primary Phone: [phone] Patient Primary Address: [address] [place] [id number] Patient : 1945 Patient Age: 78 Caller/Recipient Relation to Patient: Self Administrative Administrative Note Comments: Pt called to make a new pt appt. Thank you /malka/ RAMU WALLER Signed: 11/02/2023 09:55 Receipt Acknowledged By: 11/06/2023 08:58 /es/ SUSAN FABIAN MSA HUMANITIES TEACHER, [facility] 11/02/2023 10:34 /malka/ GRADY MIN HUMANITIES TEACHER [facility] 11/06/2023 15:08 /es/ JEANIE VALENCIA HUMANITIES TEACHER EDUCATION INSTRUCTOR 11/06/2023 ADDENDUM STATUS: COMPLETED F: Telephone call D: Vet was called and was asked to return call when available /malka/ ELLEN ADEN MSN Ed., BSN ORDAINED MINISTER NURSE Signed: 11/06/2023 11:35 GRADY MIN [facility] [place] [facility] November 02, 2023 09:55 AM ADMINISTRATIVE NOTE: LOCAL TITLE: CCC: SCHEDULING ADMINISTRATION STANDARD TITLE: ADMINISTRATIVE NOTE DATE OF NOTE: NOVEMBER 02, 2023@09:55:41 ENTRY DATE: NOVEMBER 02, 2023@09:55:41 AUTHOR: RAMU WALLER COSIGNER: URGENCY: STATUS: COMPLETED CCC: SCHEDULING ADMINISTRATION Has ADDENDA Patient Demographics Patient Name: SANDRA LIU Patient Primary Phone: [phone] Patient Primary Address: [address] [place] [id number] Patient : 1945 Patient Age: 78 Caller/Recipient Relation to Patient: Self Administrative Administrative Note Comments: Pt called to make a new pt appt. Thank you /malka/ RAMU WALLER Signed: 11/02/2023 09:55 Receipt Acknowledged By: 11/06/2023 08:58 /es/ SUSAN FABIAN [facility] HUMANITIES TEACHER, [facility] 11/02/2023 10:34 /malka/ GRADY MIN HUMANITIES TEACHER [facility] 11/06/2023 15:08 /es/ JEANIE VALENCIA HUMANITIES TEACHER EDUCATION INSTRUCTOR 11/02/2023 ADDENDUM STATUS: COMPLETED Please call to [facility]. /malka/ GRADY MIN HUMANITIES TEACHER [facility] Signed: 11/02/2023 10:35 Receipt Acknowledged By: * AWAITING SIGNATURE * ELLEN ADEN 11/06/2023 ADDENDUM STATUS: COMPLETED F: Telephone call D: Vet was called and was asked to return call when available /inder ADEN MSN Ed., BSN ORDAINED MINISTER NURSE Signed: 11/06/2023 11:35 RAMU WALLER [facility]
--- OUTSIDE RECORDS SUMMARY | 2024-05-21 09:28 | XMS_ITS | Continuity of Care Document ---
Author Name [facility] Organization [facility] Care Team Providers Care Partner Name Role Phone [facility] Unavailable Unavailable Problems Combined list of problems from Department of Defense and Veterans Affairs facilities. It does not include entries that were removed or entered in error. Problem Status Onset Date Problem Type Date of Resolution Comments Source Adenomatous polyp of colon Active Condition November 06, 2023 Entered By: SOFIA BLISS Comment: Adenomatous polyp of colon, unspecified part of colon ( [facility] Anxiety Active Condition [facility] Benign prostatic hyperplasia Active Condition November 06, 2023 Entered By: SOFIA BLISS Comment: with lower urinary tract symptoms [facility] Bilateral carpal tunnel syndrome Active Condition [facility] Bilateral osteoarthritis of knees Active Condition [facility] Chronic atrial fibrillation Active Condition [facility] Closed fracture of multiple ribs Active Condition November 06, 2023 Entered By: SOFIA BLISS Comment: Closed fracture of multiple ribs of left side, [facility] Coronary arteriosclerosis Active Condition November 05 Entered By: SOFIA BLISS Comment: involving igiugig coronary artery of igiugig heart without angina pectoris [facility] Ex-smoker Active Condition [facility] Gastroesophageal reflux disease without esophagitis Active Condition [facility] H/O: anticoagulant therapy Active Condition [facility] Hyperlipidemia Active Condition [facility] Mitral valve regurgitation Active Condition November 06, 2023 Entered By: SOFIA BLISS Comment: Nonrheumatic mitral valve regurgitation [facility] Overweight Active Condition [facility] Prostate specific antigen above reference range Active Condition November 06, 2023 Entered By: SOFIA BLISS Comment: It has increased from 1.06-1.75 and is now 4.21. He will have a free PSA. A repeat value will be done. If necessary, he will be referred to urology for evaluation. [facility] Reactive depression (situational) Active Condition November 06, 2023 Entered By: SOFIA BLISS Comment: He feels that his depression is worse through the winter. We will help him get in touch with the mental health provider [facility] Seizure Active Condition [facility] Solitary nodule of lung Active Condition [facility] Diagnosis: ICD-10-CM K21.9 Gastro-esophageal reflux disease without esophagitis Active Diagnosis [facility] Medications Combined list of outpatient medications from Department of Defense and Veterans Affairs facilities.Medications provided include 1) outpatient medications from the last 15 months, and 2) patient-reported medications. Medication Details Route Status Patient Instructions Prescription Expires Prescription Number Last Dispense Date Ordering Provider Order Date Order Qty Source ATORVASTATI N CA 80MG TAB TAKE ONE-HALF TABLET BY MOUTH ONCE DAILY ORAL ACTIVE LOI, SUNIL STEF 2023 [facility] CHOLECALCIF SARAHY 50MCG (2,000UNIT) TAB TAKE ONE TABLET BY MOUTH ONCE DAILY ORAL ACTIVE LOI, SUNIL STEF 2023 [facility] FINASTERIDE 5MG TAB TAKE ONE TABLET BY MOUTH ONCE DAILY ORAL ACTIVE LOI, USNIL STEF 2023 [facility] FUROSEMIDE 20MG TAB TAKE ONE TABLET BY MOUTH ONCE DAILY ORAL ACTIVE LOI, [facility] STEF [facility] OMEPRAZOLE 20MG CAP,EC TAKE 1 CAPSULE BY MOUTH EVERY MORNING 30 MINUTES BEFORE BREAKFAS T ORAL ACTIVE LOI, [facility]IL STEF [facility] PAROXETINE HCL 30MG TAB TAKE ONE TABLET BY MOUTH ONCE DAILY ORAL ACTIVE LOI, SUNIL STEF 2023 [facility] [place] [facility] PROPRANOLOL HCL 40MG TAB TAKE 1.5 TABLETS BY MOUTH ONCE DAILY ORAL ACTIVE LOI, SUNIL STEF 2023 [facility] TAMSULOSIN HCL 0.4MG CAP TAKE 1 CAPSULE BY MOUTH ONCE DAILY ORAL ACTIVE LOI, SUNIL STEF 2023 [facility] [place] [facility] WARFARIN (NON-VA) TAB TAKE 2.5 BY MOUTH ONCE DAILY ORAL ACTIVE LOI, SUNIL STEF 2023 [facility] [facility] Allergies, Adverse Reactions, Alerts Combined list of allergies from Department of Defense and Veterans Affairs facilities. It does not include entries that were removed or entered in error. Substance Category Reaction Severity Reaction type Status Date Reported Comments Source INDOMETHACIN Propensity to adverse reactions to drug (finding) active 4 [facility] [place] [facility] OXYCODONE HCL 5MG TABLET Propensity to adverse reactions to drug (finding) active 4 [facility] SULFAMETHOXAZ OLE Propensity to adverse reactions to drug (finding) active 4 [facility] [place] [facility] Immunizations Combined list of available immunizations from the Department of Defense and Veterans Affairs facilities. Immunization Series Date Given Administered By Site Reaction Lot Number CVX Code Drug Extract Mixer Status Comments Source INFLUENZA, UNSPECIFIED FORMULATION 2022 88 complet ed [facility] [place] [facility] [facility] TDAP 2020 115 complet ed [facility] [place] PNEUMOCOCCAL POLYSACCHARID E PPV23 2017 33 complet ed [facility] [place] PNEUMOCOCCAL CONJUGATE PCV 13 2015 133 [facility] ed [facility] Vital Signs Combined list of inpatient and outpatient Vital Signs from Department of Defense and Veterans Affairs, ranging from 12 months to all on record, depending upon the facility. Vital Sign Value Date Comments Source SYSTOLIC BLOOD PRESSURE 100 12/05/19 24 14:24:26 [facility] [place] [facility] DIASTOLIC BLOOD PRESSURE 62 06/26/2 024 14:24:26 [facility] PULSE OXIMETRY 95 12/05/2023 14:24:26 [facility] WEIGHT 175 12/05/2023 14:24:26 [facility] BMI 25kg/m2 12/05/2023 14:24:26 [facility] HEIGHT 70 12/05/2023 14:24:26 [facility] TEMPERATURE 98.3 12/05/2023 14:24:26 [facility] PULSE 70 12/05/2023 14:24:26 [facility] RESPIRATION 16 12/05/2023 14:24:26 [facility] Encounters Combined list of: 1) Encounters from Department of Veterans Affairs facilities going back up to thelast 18 months. 2) Encounters from the Department of Defense facilities going back up to 280 months. Location Location Details Encounter Type Encounter Number Reason For Visit Attending Provider ADM Date DC Date Status Disposition Source [facility] Out[facility] Encounter [id number] 02/09 [facility] Out[facility] Encounter [id number] 11/01 [facility] Out[facility] Encounter [id number] 11/05 [facility] OFFICE O/P EST MOD 30 MIN [id number] Diagnos is: ICD-10- CM K21.9 Gastro- esophag eal reflux disease without esophag itis
LOI,L THEA STEF 12/04 [facility] Out[facility] En[facility] [id number] 12/04 [facility] [place] [facility] Outpatient Encounter [id number] 12/04 [facility] Social History Combined list of available smoking, tobacco, and other social history from Department of Defense and Veterans Affairs facilities. Social History Type Response Date Comment Sour e Tobacco smoking status NHIS NE-TOBACCO FORMER USER 11/06/2023 [facility] of [facility] OR MORE 11/06/2023 [facility] Plan of Care List of future care activities from Department of [facility] facilities. Additional future care activities may be listed in the Assessment and Plan section. Date/Time Care Activity Care Activity Detail Facili ty 07/08/2024 AMBULATORY - MEDICINE AMBULATORY - MEDICI NE [facility] Advance Directives List of completed, amended, or rescinded Advance Directives on record at Department of Veterans [facility] facilities. An actual copy of the Directive is not included. Date Advance Directive Provider Source 12/05/2023 ADVANCE DIRECTIVE DELIA DEL VALLE [facility]
--- OUTSIDE RECORDS SUMMARY | 2024-05-21 09:28 | XMS_ITS ---
Author Name [facility] [place] Organization [facility] [place] Address [address] [place] [address] Care Team Providers Care Ring Attacher Name Role Phone NICOLLE BROWNING Primary Care Provider Unavailabl e Insurance Providers: [...] Amaya's Name Patient's Relationship to Policy Amaya [facility] (WNR) MEDICARE ADVANTAGE [facility] (WNR) Jun 11, 2023 [id number] SANDRA LIU PATIENT Selected Encounter This section includes the information on record at [place] for the Encounter. Date/Time Encounter Type Encounter Description Reason Pro vider Source November 06, 2023 10:34 AM Outpatient Encounter TELEPHONE PRIMARY CARE IHE Encounter Template Text not used by [place] Plan of Treatment: Future Appointments (+ 6 months) and Future Tests (+/- 45 days) The Plan of Treatment section includes future care activities for the patient from all [place] treatmentfacilities. This section includes future appointments and future orders which are active, pending or scheduled. Future Appointments This section includes appointments that were scheduled to occur 6 months from the date of the Encounter, up to a maximum of 20 appointments. The data comes from all [place] treatment facilities. Appointment Date/Time Appointment Type Appointme nt Facility Name Dec 05, 2023 02:00 PM AMBULATORY - MEDICINE [facility] Social History: Smoking Status (Most current) and Tobacco Use (All prior to encounter date) This section includes the most current, and the historical, smoking and tobacco- related health factors from the [place] facility where the Encounter took place. Current Smoking Status This section includes the most current smoking, or tobacco-related health factor, from the [place] facility where the Encounter took place. Date/Time Current Smoking Status Comment Facil ity November 06, 2023 10:34 AM [place]-TOBACCO FORMER USER [facility] Tobacco Use History This section includes a history of the smoking, or tobacco-related health factors, that were collected on or before the date of the Encounter. The data comes from the [place] facility where the Encounter took place. Date/Time Smoking Status/Tobacco Use Comment F acjamia November 06, 2023 10:34 AM [place]-TOBACCO QUIT 15 YRS OR MORE [facility] Advance Directives: All historical and current Section Date Range: From patient's date of to the date document was created. This section includes ALL of a patient's completed or amended [place] Advance and Rescinded Directives. The entries below indicate that a directive exists for the patient, but an actual copy is not included with this document. The data comes from all [place] facilities. Date Advance Directives Provider Source Dec 05, 2023 ADVANCE DIRECTIVE DELIA DEL VALLE [facility] Encounter Notes: All associated encounter notes This section contains the clinical notes associated to the Encounter. Date/Time Encounter Note(s) Provider Source November 06, 2023 10:37 AM MEDICATION MGT NOTE: LOCAL TITLE: MEDICATION RECONCILIATION STANDARD TITLE: MEDICATION MGT NOTE DATE OF NOTE: NOVEMBER 06, 2023@10:37 ENTRY DATE: NOVEMBER 06, 2023@10:37:47 AUTHOR: ELLEN ADEN COSIGNER: URGENCY: STATUS: COMPLETED Vet was given an appt with: ZACH Matson on 12/05/23@1400 ==== F: Medication reconciliation D: Vianca says that he is on the following Meds: 1. Warfarin Sodium (2.5 MG) 2.5 MG 2 tablets Orally Once a day on , and Sun- Then 2.5mg on Sun, Mon, Wed, Thurs, and Sat 2. Vitamin D3 25 MCG (1000 UT) TAKE 1 TABLET BY MOUTH EVERY DAY 3. Tamsulosin HCl 0.4 MG TAKE 1 CAPSULE BY MOUTH EVERYDAY AT BEDTIME Oral Active 4. Vitamin B-6 100 MG TAKE 1 TABLET BY MOUTH EVERY DAY Oral 5. Furosemide 20 MG 1 tablet Orally Once a day 06/06/2022 6. Finasteride 5 MG TAKE 1 TABLET BY MOUTH EVERY DAY Oral 7. Atorvastatin Calcium 40 MG take 1 tablet by mouth every day Orally Once a day 8. Omeprazole 20 MG TAKE 1 CAPSULE BY MOUTH EVERY DAY 9. Propranolol HCl ER 60 MG TAKE 1 CAPSULE BY MOUTH EVERY DAY FOR 90 DAYS 10. Paroxetine 30mg by mouth Daily ==== Vianca says that he has allergies or adverse affects to the following meds: 1. Sulfamethoxazole-TMP DS 2. Oxycodone HCl 3. Indomethacin Vianca says that he has the following community providers: 1. Deb Primary Care Provider [address] [place] [address] [place] [address], [place] ======== Vianca says that he has the following medical Hx: 1. Former Smoker 2. Overweight 3. Hypertension 4. GERD without esophagitis 5. Anticoagulated 6. Pulmonary nodule- Thoracic surgery has elected to follow this conservatively with a CT scan at 3 months in January 2023 to follow the nodule. He is on schedule for the imaging. He had no pulmonary symptoms today. He denies hemoptysis or weight loss.- 8 mm pulmonary nodule 7. Hyperlipemia 8. Coronary artery disease- involving p[place]enta coronary artery of paskenta heart without angina pectoris 9. Primary osteoarthritis of both knees- He has had one knee replacement which is functioning well. He has mild pain in the opposite knee. He will continue on his current regimen. The pain in his knees remains the same but he can conduct all of the activities of daily life. He will see the orthopedist regularly. 10. Benign prostatic hyperplasia with lower urinary tract symptoms 11. Elevated PSA - A new finding on the recent blood work was an elevated PSA. It has increased from 1.06-1.75 and is now 4.21. He will have a free PSA. A repeat value will be done. If necessary, he will be referred to urology for evaluation. 12. Reactive depression - He feels that his depression is worse through the winter. We will help him get in touch with the mental health provider 13. Adenomatous polyp of colon, unspecified part of colon 14. Closed fracture of multiple ribs of left side, 15. Carpal tunnel syndrome on both sides 16. Nonrheumatic mitral valve regurgitation- The mitral regurgitation has been documented on an echocardiogram and is mild and asymptomatic. He is free of dyspnea with exertion.A murmur was not heard on auscultation today. 17. Chronic atrial fibrillation 18. Seizure - He says the neurologist thinks that diagnosis is seizures. The workup continues. He has not been put on medication yet. He has had no further neurological episodes. 19. Anxiety ========= /es/ ELLEN ADEN MSN Ed., BSN PAPERBACK MACHINE OPERATOR NURSE Signed: 11/06/2023 14:36 Receipt Acknowledged By: 11/06/2023 15:39 /es/ SAMANTHA MALONE Nurse Practitioner 11/06/2023 14:48 /es/ TREVOR ASHLEY, MSN, RN, CNL PRIMARY CARE TEAM NURSE ELLEN ADEN [facility] November 06, 2023 10:36 AM LETTERS: LOCAL TITLE: PATIENT LETTER (B) STANDARD TITLE: LETTERS DATE OF NOTE: NOVEMBER 06, 2023@10:36 ENTRY DATE: NOVEMBER 06, 2023@10:36:56 AUTHOR: ELLEN ADEN EXP COSIGNER: URGENCY: STATUS: [place] [address] [phone] * Date: 11/06/23 Dear [place]: Sandra Thank you for choosing the [facility]. Please be a few minutes early to this appt- about 15 mins. We would like to update your demographic information. To schedule or if you would like more information regarding [place] health care benefits, please call toll free at [phone]), visit the [place] website at [email or web address], or contact your local [facility]. Welcome to patient aligned care team (Pact Team 5) with (Nicolle SINGH, ). Prior to meeting you at your new patient appointment we are requesting some of your past medical history so that we may provide you with the exceptional care you deserve. Please note that it is very helpful to have these documents prior to your appointment date as the more information we have the better we will be able to meet your needs: * Last History & Physical * Immunization records * Medication list * Diagnosis list * Most recent labs * Diagnostic screens (Colonoscopy, Abdominal Aortic Aneurysm screen, Mammograms, PAPS, etc.) We have scheduled the following appt with you to see your new PCP: Your appt is scheduled for (11/26/23@1400)- This appt will be about an hour long appt which will give you and your Provider a chance to get to know each other. We have noticed that you are due to receive the following Immunizations: 1. Zoster vaccine- 2 shot series 2. Covid 19 vaccine You may either bring your records with you to your scheduled appointment, or drop them off ahead of your appointment or you may have them faxed to ATTN: LUIS EDUARDO/NO/PACT-Crow [place] If you have any questions, please do not hesitate to contact the Department of 's Affairs call center at Ext [phone]. Just so that you know if you're feeling sick we have sick call hours at the [facility], and the [facility]- Sun thru Sunday 08-1530- first come first serve- walk-in basis. [facility] also has sick call hours Sun- Sun- 1100-12N, and 3P-4P- first come first serve basis- no appt needed. You can utilize our sick call system once you have seen the PCP for the first appt. Audiology Phone number- [phone]- Ext [phone] Optometry Phone Number- [phone] Ext [phone] [facility]- [phone] Ext- [phone] Eligibility/Enrollment- [phone]- Ext-[phone], or- [phone] Veterans Rep [phone] Ext [phone] LAURI [place] [phone] [facility] Transportation [phone] Ext [phone], or,[phone] [place] Act [phone] ( Call within 72hrs of being seen in an acute care setting Sincerely. [facility] [address] [place] [address] Phone: Ext [phone] Upcoming Appointments: 12/05/23@1400- LUIS EDUARDO/NO/LYOH-0-ZztswqrxKarl Aden MSN Ed., BSN, RN [facility] [address] [address] [place] [address] [place] [address] - Ext [phone] [facility] [address] [facility] [place] [address] [address] [facility] # [phone] [place] [address] ELLEN ADEN [place] [facility] [place] [facility] November 06, 2023 10:35 AM LETTERS: LOCAL TITLE: PATIENT LETTER (B) STANDARD TITLE: LETTERS DATE OF NOTE: NOVEMBER 06, 2023@10:35 ENTRY DATE: NOVEMBER 06, 2023@10:36 AUTHOR: ELLEN ADEN EXP COSIGNER: URGENCY: STATUS: COMPLETED [facility] [address] [place] [address] [phone] * [phone] * Date: 11/06/23 Dear [place]: Sandra Thank you for choosing the [facility]. The Whole Health Program aims to support you in pursuing what matters most to you, and includes services that support your values and overall wellness. This includes the following offerings: * Yoga * Acupuncture * [place] [facility] for Acute Pain (offered weekly; drop-in or scheduled) * Individual health coaching * Assembler [employer] * Biofeedback for Hypertension and Anxiety * Guided Imagery Group * Meditation Group * Cancer Support Group * Stress Management Group ( Stress Less ) The following require no referral from a provider, and can be initiated by you at any time: * Yoga * Meditation * [place] [facility]up[facility] * Cancer Support Group * Individual Health Coaching * Stress Management Group ( Stress Less ) If interested in any of the above offerings, please reach out to the Whole Health Team at [phone]. [phone]. To schedule consult-required services, or if you would like more information regarding [place] health care benefits, please call toll free at [phone]), visit the [place] website at [email or web address], or contact your local [place] Medical Center. If you have any questions, please do not hesitate to contact the [facility]s Affairs call center. Sincerely. Dr. Fanny Hernandez [facility] and Integrated Sewer Pipe Cleaner [facility] Direct ELLEN ADEN [place] [facility] [place] [facility] November 06, 2023 10:34 AM PREVENTIVE MEDICINE NURSING NOTE: LOCAL TITLE: CLINICAL REMINDERS/NURSING STANDARD TITLE: PREVENTIVE MEDICINE NURSING NOTE DATE OF NOTE: NOVEMBER 06, 2023@10:34 ENTRY DATE: NOVEMBER 06, 2023@10:34:17 AUTHOR: ELLEN ADEN EXP COSIGNER: URGENCY: STATUS: COMPLETED Advance Directive Screen MH AD: Patient does not have an Advance Directive completed and is requesting more information. The patient received education about Advance Directives and written notification of his/her rights. Vet was sent an advanced directive and was asked to fill out and bring in for PCP appt. Tdap Immunization: Td/Tdap given previously - written records available The patient has previously received the Tetanus, Diphtheria, Pertussis vaccine (Tdap). Documented: TDAP Historical Date Administered: Sep 22, 2020 Outside Location: Outside Healthcare Provider Information Source: FROM OTHER REGISTRY Documented: PNEUMOCOCCAL POLYSACCHARIDE PPV23 Historical Date Administered: May 03, 2018 Outside Location: Outside Healthcare Provider Information Source: FROM OTHER REGISTRY Documented: PNEUMOCOCCAL CONJUGATE PCV 13 Historical Date Administered: Jul 19, 2015 Outside Location: Outside Healthcare Provider Information Source: FROM OTHER REGISTRY Depression Screening: Perform PHQ-2 A PHQ-2 screen was performed. The score was 0 which is a negative screen for depression. Over the past two weeks, how often have you been bothered by the following problems? 1. Little interest or pleasure in doing things Not at all 2. Feeling down, depressed, or hopeless Not at all Suicide Screen: C-SSRS Screening [place] Suicide Severity Rating Scale (C-SSRS) screener 1. Over the past month, have you wished you were or wished you could go to sleep and not wake up? No 2. Over the past month, have you had any actual thoughts of killing yourself? No 3. Over the past month, have you been thinking about how you might do this? Response not required due to responses to other questions. 4. Over the past month, have you had these thoughts and had some intention of acting on them? Response not required due to responses to other questions. 5. Over the past month, have you started to work out or worked out the details of how to kill yourself? Response not required due to responses to other questions. 6. If yes, at any time in the past month did you intend to carry out this plan? Response not required due to responses to other questions. 7. In your lifetime, have you ever done anything, started to do anything, or prepared to do anything to end your life (for example, collected pills, obtained a gun, gave away valuables, went to the roof but didn't jump)? No 8. If YES, was this within the past 3 months? Response not required due to responses to other questions. Homelessness/Food Insecurity Screen: In the past 2 months, have you been living in stable housing that you own, rent, or stay in as part of a household? Yes - Living in stable housing. Are you worried or concerned that in the next 2 months you may NOT have stable housing that you own, rent, or stay in as part of a household? No - Not worried about housing near future The reports the following: Within the past 12 months, you worried whether your food would run out before you got money to buy more. Never true Within the past 12 months, the food you bought just didn't last and you didn't have money to get more. Never true Falls & Incontinence Screen: Falls Screen: During the past 12 months, did the patient report any falls? 4. No falls within the past year. Incontinence Screen: During the past 12 months, has the patient has any characteristics of incontinence (ability, voiding, leakage, etc.)? No incontinence. MST Screening: Patient denies experiencing sexual trauma (MST). Preferred Language: What is your, or your caregiver's preferred language for healthcare? Preferred Language: Khmer PTSD Screening: PC-PTSD-5 A PTSD screening test (PC-PTSD-5) was negative (score=0). IN THE PAST MONTH, have you ever had any experience that was so frightening, horrible or traumatic. For example: A serious accident or fire a physical or sexual assault or abuse An earthquake or flood A war Seeing someone be killed or seriously injured Having a loved one through homicide or suicide 1. Have you ever experienced this kind of event? NO 2. Had nightmares about the event(s) or thought about the event(s) when you did not want to? Response not required due to responses to other questions. 3. Tried hard not to think about the event(s) or went out of your way to avoid situations that reminded you of the event(s)? Response not required due to responses to other questions. 4. Been constantly on guard, watchful, or easily startled? Response not required due to responses to other questions. 5. Gaylord numb or detached from people, activities, or your surroundings? Response not required due to responses to other questions. 6. Gaylord guilty or unable to stop blaming yourself or others for the event(s) or any problems the event(s) may have caused? Response not required due to responses to other questions. Tobacco Use Screening: The patient is a former tobacco user. The patient quit fifteen or more years ago. Tobacco Pack Year History: Patient used cigarettes in the past, but quit and does not currently use them: Quit smoking GREATER THAN OR EQUAL to 15 years ago. Influenza Immunization: The patient has received the seasonal influenza vaccine for the current season at another location. Documented: INFLUENZA, UNSPECIFIED FORMULATION Historical Date Administered: Feb 2023 Exact date unknown Outside Location: Outside Healthcare Provider Information Source: FROM OTHER REGISTRY Alcohol Use Screen (AUDIT-C): Alcohol Screen: SCREEN FOR ALCOHOL (AUDIT-C) An alcohol screening test (AUDIT-C) was negative (score=0). 1. How often did you have a drink containing alcohol in the past year? Consider a drink to be a 12 ounce can or bottle of regular beer, 8 ounces of malt liquor, a 5 ounce glass of table wine, or a 1.5 ounce shot of liquor (like scotch, gin, or vodka). Never 2. How many drinks containing alcohol did you have on a typical day when you were drinking in the past year? Response not required due to responses to other questions. 3. How often did you have six or more drinks on one occasion in the past year? Response not required due to responses to other questions. /malka/ ELLEN ADEN MSN Ed., BSN PAPERBACK MACHINE OPERATOR NURSE Signed: 11/06/2023 14:35 ELLEN ADEN CN[facility]
--- OUTSIDE RECORDS SUMMARY | 2024-05-21 09:29 | XMS_ITS ---
Author Name [facility] [place] [facility] [place] Address [address] [place] [address] Care Team Providers Care Nickel Operator Name Role Phone SUNIL MONSIVAIS Primary [...] Amaya's Name Patient's Relationship to Policy Amaya [facility] (WNR) MEDICARE ADVANTAGE [facility] (WNR) Jun 11, 2023 [id number] SANDRA LIU PATIENT Selected Encounter This section includes the information on record at [place] for the Encounter. Date/Time Encounter Type Encounter Description Reason Pro vider Source Dec 05, 2023 02:22 PM Outpatient Encounter PRIMARY CARE/MEDICINE [facility] Encounter Template Text not used by [place] Vital Signs: All taken on the encounter date This section contains inpatient and outpatient Vital Signs collected on the date of the Encounter. Date/Time Temperature Pulse Blood Pressure Respiratory Rate SP02 Pain Height Weight Body Mass Index Source Dec 05, 2023 02:24 PM 98.3 70 100/62 16 95 70 175 25 [facility]SN [place] [facility] Social History: Smoking Status (Most current) and Tobacco Use (All prior to encounter date) This section includes the most current, and the historical, smoking and tobacco- related health factors from the [place] facility where the Encounter took place. Current Smoking Status This section includes the most current smoking, or tobacco-related health factor, from the [place] facility where the Encounter took place. Date/Time Current Smoking Status Comment Camren ity November 06, 2023 10:34 AM [place]-TOBACCO FORMER USER [facility] Tobacco Use History This section includes a history of the smoking, or tobacco-related health factors, that were collected on or before the date of the Encounter. The data comes from the [place] facility where the Encounter took place. Date/Time Smoking Status/Tobacco Use Comment F acility November 06, 2023 10:34 AM [place]-TOBACCO QUIT 15 YRS OR MORE [facility] Advance Directives: All historical and current Section Date Range: From patient's date of to the date document was created. This section includes ALL of a patient's completed or amended [place] Advance and Rescinded Directives. The entries below indicate that a directive exists for the patient, but an actual copy is not included with this document. The data comes from all [place] facilities. Date Advance Directives Provider Source Dec 05, 2023 ADVANCE DIRECTIVE DELIA DEL VALLE [facility] Encounter Notes: All associated encounter notes This section contains the clinical notes associated to the Encounter. Date/Time Encounter Note(s) Provider Source Dec 05, 2023 02:22 PM ADVANCE DIRECTIVE: LOCAL TITLE: ADVANCE DIRECTIVE STANDARD TITLE: ADVANCE DIRECTIVE DATE OF NOTE: DEC 05, 2023@14:22 ENTRY DATE: DEC 05, 2023@14:22:34 AUTHOR: DELIA DEL VALLE EXP COSIGNER: URGENCY: STATUS: COMPLETED * [X]Advance Directive executed with . [ ]Patient brought in his/her own Advance Directive. Scanned Advance Directive or Advance Directive/AOD Flowsheet is located in [employer]. /malka/ DELIA DEL VALLE Advanced Government Program Manager Signed: 12/05/2023 14:22 DELIA DEL VALLE [facility]
--- OUTSIDE RECORDS SUMMARY | 2024-05-21 09:29 | XMS_ITS ---
Author Name [facility] [place] Organization [facility] [place] [place] Address [address] [place] [id number] Care Team Providers Care Car Construction Superintendent Name Role Phone SUNIL MONSIVAIS Primary Care [...] Amaya's Name Patient's Relationship to Policy Amaya [facility] (WNR) MEDICARE ADVANTAGE [facility] ([facility]) Jun 11, 2023 [id number] SANDRA LIU PATIENT Selected Encounter This section includes the information on record at [place] for the Encounter. Date/Time Encounter Type Encounter Description Reason Provider Source Dec 05, 2023 02:00 PM OFFICE O/P EST MOD 30 MIN PRIMARY CARE/MEDICINE ICD-10-CM K21.9 Gastro-esophageal reflux disease without esophagitis SUNIL MONSIVAIS [facility] Encounter Template Text not used by [place] Assessments - Encounter Diagnoses This section includes the primary and secondary diagnoses documented for the Encounter. Date/Time Primary/Secondary Diagnosis Diagnosis Name Provider Source Dec 05, 2023 03:14 PM PRIMARY Gastro-esophageal reflux disease without esophagitis SUNIL MONSIVAIS [facility] Dec 05, 2023 03:14 PM SECONDARY Anxiety disorder, unspecified LOI,SUNIL FINCH [facility] [place] Dec 05, 2023 03:14 PM SECONDARY Benign prostatic hyperplasia without lower urinry tract symp LOI,SUNIL HUBBARDNE [facility] [place] Dec 05, 2023 03:14 PM SECONDARY Bilateral primary osteoarthritis of knee LOI,SUNIL STEF [facility] [place] Dec 05, 2023 03:14 PM SECONDARY Chronic atrial fibrillation, unspecified LOI,SUNIL STEF [facility] [place] Dec 05, 2023 03:14 PM SECONDARY Depression, unspecified LOI,SUNIL STEF [facility] [place] Dec 05, 2023 03:14 PM SECONDARY Hyperlipidemia, unspecified LOI,SUNIL STEF [facility] [place] Dec 05, 2023 03:14 PM SECONDARY Solitary pulmonary nodule LOI,SUNIL STEF [facility] [place] Dec 05, 2023 03:14 PM SECONDARY Unspecified convulsions LOI,SUNIL HUBBARDNE [facility] Vital Signs: All taken on the encounter date This section contains inpatient and outpatient Vital Signs collected on the date of the Encounter. Date/Time Temperature Pulse Blood Pressure Respiratory Rate SP02 Pain Height Weight Body Mass Index Source Dec 05, 2023 02:24 PM 98.3 70 100/62 16 95 70 175 25 [facility] [place] [facility] Social History: Smoking Status (Most current) and Tobacco Use (All prior to encounter date) This section includes the most current, and the historical, smoking and tobacco- related health factors from the [place] facility where the Encounter took place. Current Smoking Status This section includes the most current smoking, or tobacco-related health factor, from the [place] facility where the Encounter took place. Date/Time Current Smoking Status Comment Facil itNovember 06, 2023 10:34 AM VA-TOBACCO FORMER USER [facility] Tobacco Use History This section includes a history of the smoking, or tobacco-related health factors, that were collected on or before the date of the Encounter. The data comes from the [place] facility where the Encounter took place. Date/Time Smoking Status/Tobacco Use Comment F acility November 06, 2023 10:34 AM PA-TOBACCO QUIT 15 YRS OR MORE [facility] Advance Directives: All historical and current Section Date Range: From patient's date of to the date document was created. This section includes ALL of a patient's completed or amended [place] Advance and Rescinded Directives. The entries below indicate that a directive exists for the patient, but an actual copy is not included with this document. The data comes from all [place] facilities. Date Advance Directives Provider Source Dec 05, 2023 ADVANCE DIRECTIVE DELIA DEL VALLE [facility] Encounter Notes: All associated encounter notes This section contains the clinical notes associated to the Encounter. 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 The workup continues has EEG (he thinks ) at [facility] next week, workup ongoing Chronic atrial fibrillation is anticoagulated on warfarin, Nonrheumatic mitral valve regurgitation- The mitral regurgitation has been documented on an echocardiogram and is mild and asymptomatic. He is free of dyspnea with exertion. He no longer sees insecticide maker He likely is on propranolol for rate control as well although he is not aware (not sure why he would not be on Metoprolol) Cataracts and needing surgery wants eye exam GERD without esophagitis takes omeprazole 20mg daily Pulmonary nodule- Thoracic surgery has elected to follow this conservatively with a CT scan at 3 months in January 2023 to follow the nodule. He is on schedule for the imaging. He had no pulmonary symptoms today. He denies hemoptysis or weight loss.- 8 mm pulmonary nodule he notes he has Emphysema Hyperlipemia, stable he is not on stating he is not sure why CAD involving [place] coronary artery of [place] heart without angina pectoris osteoarthritis bilateral knees- Had right TKR x2 he manages with mild activity he thinks he might need a walker Benign prostatic hyperplasia with lower urinary tract symptoms also with elevated PSA increased from about 1 to 4 and apparently referred to Urology Depression Follows with Dr Locke in the [facility], takes propranolol 60mg daily, he would like to stay with her for now Past Medical History: Active problems - Computerized Problem List is the source for the followin. Ex-smoker 2. Overweight 3. Hypertensive disorder 4. Gastroesophageal reflux disease without esophagitis 5. H/O: anticoagulant therapy 6. Solitary nodule of lung 7. Hyperlipidemia 8. Bilateral osteoarthritis of knees 9. Coronary arteriosclerosis involving [place] coronary artery of [place] heart without angina pectoris 10. Benign prostatic hyperplasia with lower urinary tract symptoms 11. Prostate specific antigen above reference range It has increased from 1.06- 1.75 and is now 4.21. He will have a free PSA. A repeat value will be done. If necessary, he will be referred to urology for evaluation. 12. Reactive depression (situational) He feels that his depression is worse through the winter. We will help him get in touch with the mental health provider 13. Adenomatous polyp of colon Adenomatous polyp of colon, unspecified part of colon ( 14. Closed fracture of multiple ribs Closed fracture of multiple ribs of left side, 15. Mitral valve regurgitation Nonrheumatic mitral valve regurgitation 16. Bilateral carpal tunnel syndrome 17. Chronic atrial fibrillation 18. Seizure 19. Anxiety Allergies: SULFAMETHOXAZOLE, OXYCODONE HCL 5MG TABLET, INDOMETHACIN Current Medications: Active Outpatient Medications (including Supplies): see cprs -ROS- General: no fever, no unexplained weight loss or gain HEENT: (+) vision changes 2/2 cataract CV: denies CP, SOB, palpitations Lung: denies SMITH, cough, wheezing Abd: denies constipation, diarrhea, reflux, abdominal pain Skin: denies rash or other lesions Psych: denies depression, SI Neuro: denies weakness, dizziness, falls, BLACK -Vitals- 98.3 F [36.8 C] (12/05/2023 14:24) 70 (12/05/2023 14:24) 16 (12/05/2023 14:24) 100/62 (12/05/2023 14:24) 70 in [177.8 cm] (12/05/2023 14:24) 175 lb [79.38 kg] (12/05/2023 14:24) BMI: 25.2 -Physical Exam- General: NAD HEENT: PERRL, EOMI, OP clear, TMs nl b/l, no LAD CV: S1S2, rrr, no m/r/g noted Lung: CTA b/l, no wheeze, rhonchi, or crackles, good breath sounds to bases b/l Abd: soft, NTND, NABS x4, no HSM Ext: no edema, warm and well perfused b/l slightly antalgic gait from OA in knees Skin: no lesions Neuro: CN 2-12 grossly intact Psych: A&O x3, appropriate mood and affect Assessment/Plan: #Seizure -unclear on official dx he is currently undergoing workup on this -has upcoming neuro and EEG appts -no current SZ activity recently #Chronic atrial fibrillation -Is on warfarin for anticoag -Propranolol for rate control -Follows with PCP #Cataracts needing surgery wants eye exam and VA to consider coverage #GERD -Cont. omeprazole 20mg daily #Pulmonary nodule -Had seen Thoracic surgery who elected to follow this conservatively -getting routine CT scans with Dr Walker PCP Hyperlipemia -Cont. atorva CAD -unclear if ever had Cath or other cards workup but is on statin and BP well controlled denies diabetes osteoarthritis -bilateral knees -post right TKR x2 -interested in walker BPH with lower urinary tract symptoms also with elevated PSA increased from about 1 to 4 and apparently referred to Urology Depression Follows with Dr Locke in the [facility], takes propranolol 60mg daily, he would like to stay with her for now Patient prefers to follow up with off-site PCP regularly for titration of meds and management of chronic conditions. He will come here annually. Advised if anything changes and no longer following with off-site PCP, please call front maker to schedule sooner appt with VA PCP. The above plan and education was reviewed with the [place] and she verbalized understanding. 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 [place] has no concerns about toxic exposure(s) while serving in the Armed Forces. The /caregiver was informed that we will continue to ask this screening question every 5 years. They can contact their provider/healthcare team if they have concerns about exposures and would like to be screened sooner. Printed information was offered and provided if desired. Hepatitis C Testing: Patient declines HCV lab test. HIV Screening: Patient has been offered HIV testing and has declined. I have explained that HIV testing is recommended for all adults, even if all risk factors are absent. The patient was educated on the risk of delayed screening. Medication Reconciliation: Outpatient: Has the patient been taking medications as documented in the EMLR? YES: The patient has been taking medications as documented in the EMLR. Essential Medication List for Review used to complete this medication reconciliation. INCLUDED IN THIS LIST: Alphabetical list of active outpatient prescriptions dispensed from this [place] (local) and dispensed from another VA or [facility]D facility (remote) as well as inpatient orders (local, pending and active), local clinic medications, locally documented non-VA medications, and local prescriptions that have or been discontinued in the past 90 days. - All changes in medications, including all non-VA/Herbal/OTC medications were entered into CPRS. - If there were any medications the patient should no longer take, they were discontinued. - The patient/caregiver was instructed to update this list, discard old lists, and take this list to the next appointment, whether with a VA or non-VA provider. /malka/ SAMANTHA MALONE Nurse Practitioner Signed: 12/05/2023 15:13 SUNIL MONSIVAIS [facility] Dec 05, 2023 01:58 PM PREVENTIVE MEDICINE NURSING NOTE: LOCAL TITLE: CLINICAL REMINDERS/NURSING STANDARD TITLE: PREVENTIVE MEDICINE NURSING NOTE DATE OF NOTE: DEC 05, 2023@13:58 ENTRY DATE: DEC 05, 2023@13:58:43 AUTHOR: RAMU POPE COSIGNER: URGENCY: STATUS: COMPLETED Herpes Zoster (Shingles) Vaccine: Prior Herpes Zoster vaccination The patient has been vaccinated in the past but written documentation of vaccination is not available today. Patient instructed to obtain a written record of the prior vaccine and bring it to the next appointment. COVID-19 Immunization: Vaccine given previously - no written/electronic documentation available The patient was instructed to bring a copy of their COVID-19 vaccine information to their next appointment so that this can be accurately recorded in their VA medical record. Sexual Orientation: The patient thinks of their sexual orientation as: Straight or Heterosexual /es/ RAMU POPE REGISTERED NURSE Signed: 12/05/2023 14:28 RAMU POPE [facility]
== END 2024-05-16 13:23 | disposition home or self-care (01) ==
LOC: HO.ACS 13:10
PROVIDERS: PCP Internal Medicine Medical Oncology; Visit Provider Internal Medicine
DX: Z79.01 Long term (current) use of anticoagulants (principal)

== ENCOUNTER → 2024-05-16 13:10 | Outpatient (BNVA) | payer MEDICARE, SELFPAY | PROVIDERS: PCP Internal Medicine Medical Oncology; Visit Provider Internal Medicine | DX: I48.20 Chronic atrial fibrillation, unspecified (principal); Z79.01 Long term (current) use of anticoagulants; Z51.81 Encounter for therapeutic drug level monitoring | CPT/HCPCS: 85610; 99211 ==

== ENCOUNTER 2024-06-13 12:59 | Outpatient (AMB) | payer MEDICARE, SELFPAY ==
[2024-06-13 13:06] LABS: ~PT, ~INR - Anti Coag Clinic 2.3 (0.9-1.1)
--- NOTE | 2024-06-13 13:11 | MHC.OFFVISCO ---
Intake Intake Visit Reasons: Anticoagulation Allergies indomethacin [From INDOCIN] Allergy (Intermediate, Verified 06/13/24 13:01) RASH oxycodone [OXYCODONE] Allergy (Intermediate, Verified 06/13/24 13:01) VOMITING/RASH Sulfa (Sulfonamide Antibiotics) [SULFA (SULFONAMIDE ANTIBIOTICS)] Allergy (Intermediate, Verified 06/13/24 13:01) BLISTERS, sore on the end of his penis acetaminophen [Percocet] Adverse Reaction (Unknown, Verified 06/13/24 13:01) vomiting Medication List - Last Reconciled 06/13/24 by Luci Connor, RN atorvastatin 1 tab PO DAILY cholecalciferol (vitamin D3) 25 mcg PO DAILY donepezil 5 mg PO DAILY levetiracetam 1,000 mg PO BID omeprazole 1 cap PO DAILY paroxetine HCl 40 mg PO DAILY paroxetine HCl 10 mg PO DAILY propranolol ER 1 cap PO DAILY pyridoxine (vitamin B6) 100 mg PO DAILY pyridoxine (vitamin B6) mg PO tamsulosin 0.4 mg PO DAILY warfarin 2.5 mg See Protocol PO 2XW Nursing Note INR: 2.3 in therapeutic range Medications and supplements reviewed No changes in health, diet, medications, or supplements, Denies any signs and symptoms of bleeding or bruising or clotting. Bleeding, bruising, clotting discussed Nutritional guidance given Dose: KEEP SAME DOSE 5MG TUE/ 2.5MG X 6 DAYS F/U INR: 1 MONTH Patient verbalizes understanding of instructions given Anti-Coag Initial Assessment Social Hx Patient Tobacco Use Status: Former Tobacco user Tobacco use type: Cigarette Alcohol intake frequency: former alcohol drinker Cardiovascular Hx: HTN, Arrhythmias and Varicose Veins Musculoskeletal Hx: Arthritis GI Hx: Other (GERD) Neurological Hx: Epilepsy/Seizures Cancer HX: No Psych. 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
--- OUTSIDE RECORDS SUMMARY | 2024-06-13 14:27 | XMS_ITS ---
Author Organization Chris Walker III, MD Address [address] [place] [address] [address] [place] [address] Care Team Providers Care School Librarian Name Role Phone Chris Walker Primary Care [...] Problem Status W/U Status Risk Notes Problem [id number] Seizure disorder (G40.909) Active confirmed Vital Signs Temperature 97.2 degrees Fahrenheit 04/30/20 24 Blood pressure systolic 117 mm Hg 04/30/20 24 Blood pressure diastolic 62 mm Hg 024 Heart Rate 83 /min 04/30/2024 Height 67 in 04/30/2024 Weight 178 lbs 04/30/2024 BMI 27.88 kg/m2 04/30/2024 Encounters Encounter Location Date Provider Diagnosis Chris Walker III, MD [address] [place] [address] [place] [address] 04/30/2024 Chris Walker Hypertension I10 ; Coronary artery disease involving teller coronary artery of teller heart without angina pectoris I25.10 ; Overweight [...] was made. 04/30/2024 Coronary artery disease involving teller coronary artery of teller heart without angina pectoris (ICD-10 - I25.10) [...] OV Provider Name:Chris Walker, 07/30/2024 02:00:00 PM, [address] [place] [address] [address], [place], [address], Provider Name:Chris Walker, 12/03/2024 04:00:00 PM, [address] [place] [address] [address], [place], [address], Progress Notes * Reji LIU JrDOB:10/1944 (79 yo M)Acc No.[id number]:04/30/2024 Progress Notes Patient:?Reji LIU Jr Provider:?Chris Walker MD :1945???Age:79 Y???Sex:Male Sourav e:04/30/2024 Address:[facility] [address] [id number] Subjective: * Chief Complaints: * ???HypertensionBenign prosta [...] living in an independent living facility at [facility] and has stopped driving due to his [...] replacement colonoscopy tubular adenoma Dr. Hines 1989colonoscopy [facility] 2019appendectomy Past surgery on right knee * [...] Findings: Tobacco Non-User?Ex-cigarette smoker ???He lives in [facility]. He has been to [place] since 1970. They have no children. 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 He was born in [facility]. * Medications:?TakinglevETIRAc etam 1000 MG Tablet s [...] * Assessment: 1.?Coronary artery disease i nvolving teller coronary artery of teller heart without angina pectoris - I25.10 (Primary)???Notes [...] * Provider:?Chris Walker MD Date:?04/12 Generated for Trevor pool/Tawny/eTransmitting on:?06/13/2024 02:27 PM EST History and Physical Notes * HPI (History of Present Illness) Category Sub-Category Detail Notes COVID-19 Screening Questions Have you had any new onset fever, chills, cough, congestion, sore throat, shortness of breath, muscle aches?: No Have you been exposed to the virus withi n the last 10 days?: No Have you travelled internationally in [facility] last 10 days?: No Have you been [...]
--- OUTSIDE RECORDS SUMMARY | 2024-06-13 14:27 | XMS_ITS ---
Author Organization Chris Walker III, MD Address [address] [place] [address] [place] [address] Care Team Providers Care Coin Machine Mechanic Name Role Phone Chris Walker Primary Care Provider REASON FOR VISIT Message Social History Sex Assigned At : Social History Observation Description Sex Assigned At Male Encounters Encounter Location Date Provider Diagnosis Chris Walker III, MD [address] [place] [address] [address] [place] [facility] [address] 03/27/2024 Chris Walker Plan Of Treatment Next Appt Details Provider Name:Chris Walker, 07/30/2024 02:00:00 PM, [address] [place] [address] [place], [address], Provider Name:Chris Walker, 12/03/2024 04:00:00 PM, [address] [place] [address] [place], [address], Progress Notes * Reji LIU JrDOB:10/1944 (79 yo M)Acc No.[id number]:03/27/2024 Patient:?Reji LIU Jr :1945???Age:79 Y???Sex:Male Address:[address] [place] [address], [phone] * true * Date:? Generated for Trevor pool/Tawny/Cuong on:?06/13/2024 02:27 PM EST
--- OUTSIDE RECORDS SUMMARY | 2024-06-13 14:27 | XMS_ITS ---
Author Organization Chris Walker III, MD Address [address] [place] [address] [place] [address] Care Team Providers Care Vascular Technician Name Role Phone Chris Walker Primary Care Provider [phone] REASON FOR VISIT [facility] Social History Sex Assigned At : Social History Observation Description Sex Assigned At Male Encounters Encounter Location Date Provider Diagnosis Chris Walker III, MD [address] [place] [address] [place] [address] 03/28/2024 Chris Walker Plan Of Treatment Next Appt Details Provider Name:Chris Walker, 07/30/2024 02:00:00 PM, [address] [place] [address] [place], [address], Provider Name:Chris Walker, 12/03/2024 04:00:00 PM, [address] [place] [address] [place], [address], Progress Notes * Reji LIU JrDOB:10/1944 (79 yo M)Acc No.[id number]:03/28/2024 Patient:?Reji LIU Jr :1945???Age:79 Y???Sex:Male Address:[address] [place], [address] * true * Date:? Generated for Printi ng/Tawny/Edvinitting on:?06/13/2024 02:27 PM EST
--- OUTSIDE RECORDS SUMMARY | 2024-06-13 14:28 | XMS_ITS | Continuity of Care Document ---
Author Name [facility] Organization [facility] Care Team Providers Care Manager Packaging Name Role Phone [facility] Unavailable Unavailable Problems Combined list of problems [...] 05 Entered By: SOFIA BLISS Comment: involving tolowa dee-ni' coronary artery of tolowa dee-ni' heart without angina pectoris [facility] [...] will be referred to urology for evaluation. [facility] Reactive depression (situational) Active Condition November 06, 2023 Entered By: SOFIA BLISS Comment: He feels that his depression is worse through the winter. We will help him get in touch with the mental health provider [facility] Seizure Active Condition [facility] Solitary nodule of lung Active Condition [facility] Diagnosis: ICD-10-CM K21.9 Gastro-esophageal reflux disease without esophagitis Active Diagnosis [facility] Medications Combined list of outpatient medications from [...] DAILY ORAL ACTIVE LOI, SUNIL STEF 2023 [facility] CHOLECALCIF SARAHY 50MCG (2,000UNIT) TAB TAKE ONE TABLET BY MOUTH ONCE DAILY ORAL ACTIVE LOI, SUNIL STEF 2023 [facility] FINASTERIDE 5MG TAB TAKE ONE TABLET BY MOUTH ONCE DAILY ORAL ACTIVE LOI, SUNIL STEF 2023 [facility] FUROSEMIDE 20MG TAB TAKE ONE TABLET BY MOUTH ONCE DAILY ORAL ACTIVE LOI, SUNIL STEF [facility]23 [facility] OMEPRAZOLE 20MG CAP,EC TAKE 1 CAPSULE BY MOUTH EVERY MORNING 30 MINUTES BEFORE BREAKFAS T ORAL ACTIVE LOI, SUNIL STEF 2023 [facility] PAROXETINE HCL 30MG TAB TAKE ONE TABLET BY MOUTH ONCE DAILY ORAL ACTIVE LOI, SUNIL STEF 2023 [facility] PROPRANOLOL HCL 40MG TAB TAKE 1.5 TABLETS BY MOUTH ONCE DAILY ORAL ACTIVE LOI, SUNIL STEF 2023 [facility] TAMSULOSIN HCL 0.4MG CAP TAKE 1 CAPSULE BY MOUTH ONCE DAILY ORAL ACTIVE LOI, SUNIL STEF 2023 [facility] WARFARIN (NON-VA) TAB TAKE 2.5 BY MOUTH ONCE DAILY ORAL ACTIVE LOI, SUNIL STEF 2023 [facility] Allergies, Adverse Reactions, Alerts Combined list of allergies from Department of Defense and Veterans Affairs facilities. It does not include entries that were removed or entered in error. Substance Category Reaction Severity Reaction type Status Date Reported Comments Source INDOMETHACIN Propensity to adverse reactions to drug (finding) active 4 [facility] OXYCODONE HCL 5MG TABLET Propensity to adverse reactions to drug (finding) active 4 [facility] SULFAMETHOXAZ OLE Propensity to adverse reactions to drug (finding) active 4 [facility] Immunizations Combined list of available immunizations from the Department of Defense and Veterans Affairs facilities. Immunization Series Date Given Administered By Site Reaction Lot Number CVX Code Drug Security Site Supervisor Status Comments Source INFLUENZA, UNSPECIFIED FORMULATION 2022 88 complet ed [facility] TDAP 2020 115 complet ed [facility] PNEUMOCOCCAL POLYSACCHARID E PPV23 2017 33 complet [facility] PNEUMOCOCCAL CONJUGATE PCV 13 2015 133 complet ed [facility] Vital Signs Combined list of inpatient and outpatient Vital Signs from Department of Defense and Veterans Affairs, ranging from 12 months to all on record, depending upon the facility. Vital Sign Value Date Comments Source SYSTOLIC BLOOD PRESSURE 100 12/05/19 24 14:24:26 [facility] DIASTOLIC BLOOD PRESSURE 62 06/26/2 024 14:24:26 [...] [facility] [id number] 02/09 [facility] En[facility] [id number] 11/01 [facility] En[facility] [id number] 11/05 [facility] OFFICE O/P EST MOD 30 MIN [id number] Diagnos is: ICD-10- CM K21.9 Gastro- esophag eal reflux disease without esophag itis
LOI,L THEA STEF 12/04 [facility] En[facility] [id number] 12/04 [facility] Outpatient Encounter [id number] 12/04 [facility] Social History Combined list of available smoking, tobacco, and other social history from Department of Defense and Veterans Affairs facilities. Social History Type Response Date Comment Sour e Tobacco smoking status [place] FORMER USER 11/06/2023 [facility] of [facility]23 [facility] Plan of Care List of future care activities from [facility] facilities. Additional future care activities may be listed in the Assessment and Plan section. Date/Time Care Activity Care Activity Detail Facili ty 07/08/2024 AMBULATORY - MEDICINE AMBULATORY - MEDICI NE [facility] 12/10/2024 AMBULATORY - MEDICINE AMBULATORY - MEDICI NE [facility] Advance Directives List of completed, amended, or rescinded Advance Directives on record at [facility] facilities. An actual copy of the Directive is not included. Date Advance Directive Provider Source 12/05/2023 ADVANCE DIRECTIVE DELIA DEL VALLE [facility]
--- OUTSIDE RECORDS SUMMARY | 2024-06-13 14:28 | XMS_ITS ---
Author Name [facility] Organization [facility] Address [address] [place] [id number] Care Team Providers Care Ship Loader Name Role Phone SUNIL MONSIVAIS Primary Care [...] Amaya's Name Patient's Relationship to Policy Amaya [facility] (WNR) MEDICARE ADVANTAGE [facility] (WNR) Jun 11, 2023 [id number] [phone] SANDRA LIU PATIENT Selected Encounter This section includes the information on record at OR for the Encounter. Date/Time Encounter Type Encounter Description Reason Pro vider Source November 02, 2023 09:55 AM Outpatient Encounter ADMIN PAT ACTIVTIES (MASNONCT) IHE Encounter Template Text not used by OR Plan of Treatment: Future Appointments (+ 6 [...] 20 appointments. The data comes from all [place] treatment facilities. Appointment Date/Time Appointment Type Appointme nt Facility Name Dec 05, 2023 02:00 PM AMBULATORY - MEDICINE OR [facility] Advance Directives: All historical and current Section Date Range: From patient's date of to the date document was created. This section includes ALL of a patient's completed or amended [place] Advance and Rescinded Directives. The entries below indicate that a directive exists for the patient, but an actual copy is not included with this document. The data comes from all [place] facilities. Date Advance Directives Provider Source Dec 05, 2023 ADVANCE DIRECTIVE DELIA DEL VALLE [facility] Encounter Notes: All associated encounter notes This section contains the clinical notes associated to the Encounter. Date/Time Encounter Note(s) Provider Source November 02, 2023 10:34 AM ADDENDUM: LOCAL TITLE: Addendum STANDARD TITLE: ADDENDUM DATE OF NOTE: NOVEMBER 02, 2023@10:34:52 ENTRY DATE: NOVEMBER 02, 2023@10:34:53 AUTHOR: GRADY MIN EXP COSIGNER: URGENCY: STATUS: COMPLETED Please call to [facility]. /malka/ GRADY MIN POST CLOSER [place] Signed: 11/02/2023 10:35 Receipt Acknowledged By: 11/13/2023 10:38 /malka/ ELLEN ADEN MSN Ed., BSN CIT[employer]EN[employer] TE[employer]ER NURSE === --- Original Document --- 11/02/23 CCC: SCHEDULING ADMINISTRATION: Patient Demographics Patient Name: SANDRA LIU Patient Primary Phone: [phone] Patient Primary Address: [address] [place] [id number] Patient : 1945 Patient Age: 78 Caller/Recipient Relation to Patient: Self Administrative Administrative Note Comments: Pt called to make a new pt appt. Thank you /malka/ RAMU WALLER Signed: 11/02/2023 09:55 Receipt Acknowledged By: 11/06/2023 08:58 /es/ SUSAN FABIAN MSA POST CLOSER, [facility] 11/02/2023 10:34 /malka/ [facility] MIN [facility] 11/06/2023 15:08 /es/ JEANIE VALENCIA POST CLOSER [employer] 11/06/2023 ADDENDUM STATUS: COMPLETED F: Telephone call D: Vet was called and was asked to return call when available /malka/ ELLEN ADEN MSN Ed., BSN CIT[employer]EN[employer] TE[employer]ER NURSE Signed: 11/06/2023 11:35 GRADY MIN [facility] [place] [facility] November 02, 2023 09:55 AM ADMINISTRATIVE NOTE: LOCAL TITLE: CCC: SCHEDULING ADMINISTRATION STANDARD TITLE: ADMINISTRATIVE NOTE DATE OF NOTE: NOVEMBER 02, 2023@09:55:41 ENTRY DATE: NOVEMBER 02, 2023@09:55:41 AUTHOR: RAMU WALLER COSIGNER: URGENCY: STATUS: COMPLETED CCC: SCHEDULING ADMINISTRATION Has ADDENDA Patient Demographics Patient Name: SANDRA LIU Patient Primary Phone: [phone] Patient Primary Address: [address] [place] [id number] Patient : 1945 Patient Age: 78 Caller/Recipient Relation to Patient: Self Administrative Administrative Note Comments: Pt called to make a new pt appt. Thank you /malka/ RAMU WALLER Signed: 11/02/2023 09:55 Receipt Acknowledged By: 11/06/2023 08:58 /es/ SUSAN FABIAN [facility] POST CLOSER, [facility] 11/02/2023 10:34 /malka/ GRADY MIN [facility] 11/06/2023 15:08 /es/ JEANIE VALENCIA POST CLOSER [employer] 11/02/2023 ADDENDUM STATUS: COMPLETED Please call to [facility]. /malka/ GRADY MIN POST CLOSER [facility] Signed: 11/02/2023 10:35 Receipt Acknowledged By: * AWAITING SIGNATURE * ELLEN ADEN 11/06/2023 ADDENDUM STATUS: COMPLETED F: Telephone call D: Vet was called and was asked to return call when available /inder ADEN MSN Ed., BSN CITIZENSHIP TEACHER NURSE Signed: 11/06/2023 11:35 RAMU WALLER [facility]
--- OUTSIDE RECORDS SUMMARY | 2024-06-13 14:28 | XMS_ITS | Patient Health Record ---
Author Organization Chris Walker III, MD Address [address] [place] [address] [address] [place] [address] Care Team Providers Care Technician Support Engineer Name Role Phone Chris Walker Primary Care [...] 0.2 - 1.3 BLD Negative Negative - INR WHOLE BLOOD POC Reviewed date:06/17/2023 06:54:03 PM Interpretation: Performing Lab:[facility], [address] [place] [phone] Notes/Report: PT, INR - Anti Coag Clinic 3.4 0.9-1.1 METER #: [id number] INTERNATIONAL NORMALIZED RATIO (INR) REFERENCE RANGES Reference [...] OC Reviewed date:06/17/2023 06:54:03 PM Interpretation: Performing Lab:[facility], [address] [place] [phone] Notes/Report: Prothrombin Time Whole Bld POC 40.4 11.1-13.5 sec INR WHOLE BLOOD POC Reviewed date:06/29/2023 11:20:26 AM Interpretation: Performing Lab:[facility], [address] [place] [phone] Notes/Report: PT, INR - Anti Coag Clinic 2.4 0.9-1.1 METER #: [id number] INTERNATIONAL NORMALIZED RATIO (INR) REFERENCE RANGES Reference [...] OC Reviewed date:06/29/2023 11:20:26 AM Interpretation: Performing Lab:[facility], [address] [place] [phone] Notes/Report: Prothrombin Time Whole Bld POC 28.6 11.1-13.5 sec INR WHOLE BLOOD POC Reviewed date:07/18/2023 03:23:44 PM Interpretation: Performing Lab:[facility], [address] [place] [phone] Notes/Report: PT, INR - Anti Coag Clinic 2.7 0.9-1.1 METER #: [id number] INTERNATIONAL NORMALIZED RATIO (INR) REFERENCE RANGES Reference [...] OC Reviewed date:07/18/2023 03:23:44 PM Interpretation: Performing Lab:[facility], [address] [place] [phone] Notes/Report: Prothrombin Time Whole Bld POC 31.9 11.1-13.5 sec INR WHOLE BLOOD POC Reviewed date:08/08/2023 01:56:01 PM Interpretation: Performing Lab:[facility], [address] [place] [phone] Notes/Report: PT, INR - Anti Coag Clinic 2.9 0.9-1.1 METER #: [id number] INTERNATIONAL NORMALIZED RATIO (INR) REFERENCE RANGES Reference [...] OC Reviewed date:08/08/2023 01:56:01 PM Interpretation: Performing Lab:[facility], [address] [place] [phone] Notes/Report: Prothrombin Time Whole Bld POC 34.5 11.1-13.5 sec Complete Blood Count Auto Di ff Reviewed date:09/01/2023 03:43:39 PM Interpretation: Performing Lab:[facility], [address] [place] [phone] Notes/Report: White Blood Count 6.5 4.8-10.8 X10*3/uL [...] NRBC Abs Auto 0.000 0.0-0.012 X10*3/uL Comprehensive Happy. Panel Fa st Reviewed date:09/01/2023 03:43:39 PM Interpretation: Performing Lab:[facility], [address] [place] [phone] Notes/Report: Sodium 141 135-145 mmol/L Potassium 4.0 3.3-5.1 mmol/L Chloride 106 96-108 mmol/L Carbon Dioxide 27 22-29 mmol/L Anion Gap 12 12-20 Blood Urea Nitrogen 12 9-16 mg/dL Creatinine 0.97 0.5-1.4 mg/dL Estimated Glomerular Filt Rate > 60 NOTE: For -[place] individuals, multiply the result by 1.210. Chronic [...] Panel Reviewed date:09/01/2023 03:43:39 PM Interpretation: Performing Lab:[facility], [address] [place] [phone] Notes/Report: Triglycerides 149 <150 mg/dL Desirable Triglyceride: [...] POC Reviewed date:09/08/2023 07:28:39 AM Interpretation: Performing Lab:[address] [phone] Notes/Report: PT, INR - Anti Coag Clinic 3.0 0.9-1.1 METER #: [id number] INTERNATIONAL NORMALIZED RATIO (INR) REFERENCE RANGES Reference [...] OC Reviewed date:09/08/2023 07:28:39 AM Interpretation: Performing Lab:[facility], [address] [place] [phone] Notes/Report: Prothrombin Time Whole Bld POC 35.5 11.1-13.5 sec Complete Blood Count Auto Di ff Reviewed date:09/14/2023 05:27:49 AM Interpretation: Performing Lab:[address] [phone] Notes/Report: White Blood Count 5.2 4.8-10.8 X10*3/uL [...] INR Reviewed date:09/14/2023 05:27:49 AM Interpretation: Performing Lab:[facility] [phone] Notes/Report: Prothrombin Time 29.1 11.1-13.3 SEC INTERNATIONAL [...] Panel Reviewed date:09/14/2023 05:27:49 AM Interpretation: Performing Lab:[address] [phone] Notes/Report: Bilirubin Total 0.9 0.0-1.0 mg/dL Bilirubin Direct 0.3 0.0-0.5 mg/dL Aspartate Amino Transferase 22 5-37 U/L Alanine Aminotransferase 19 0-40 U/L Total Protein 7.4 6.5-8.0 g/dL Albumin Level 4.0 3.5-5.0 g/dL Alkaline Phosphatase 91 39-117 U/L Basic Metabolic Panel Reviewed date:09/14/2023 05:27:49 AM Interpretation: Performing Lab:[address] [address] Notes/Report: Sodium 141 135-145 mmol/L Potassium 4.5 [...] Glomerular Filt Rate > 60 NOTE: For -[place] individuals, multiply the result by 1.210. Chronic Kidney Disease: Estimated GFR < 60 mL/min/1.73m2 Severe Kidney Disease: Estimated GFR < 15 mL/min/1.73m2 Glucose Random 103 60-115 mg/dL Calcium 9.6 8.4-10.2 mg/dL Troponin-I High Sensitivity Reviewed date:09/14/2023 05:27:49 AM Interpretation: Performing Lab:[facility], [address] [place] [phone] Notes/Report: Troponin-I High Sensitivity 4.8 <3.5-35.0 ng/L [place] high sensitivity Troponin-I results should be used in conjunction with other diagnostic information such as ECG, clinical observations and information, and patient symptoms to aid in the diagnosis of AL. Ethanol Reviewed date:09/14/2023 05:27:49 AM Interpretation: Performing Lab:[facility], [address] [place] [phone] Notes/Report: Ethanol < 10 Serum/plasma ethanol results are to be used for medical/treatment purposes only. CT head/brain wo con Reviewed date:09/14/2023 05:27:49 AM Interpretation: Performing Lab: Notes/Report: [address] [address] [address] Scan Report Signed Patient: Reji Tony Jr MR#: [id number] : 1945 Acct:[id number] Age/Sex: 78 / M ADM Date: 09/10/23 Loc: .ED Attending Dr: Ordering Physician: Ofelia Hong NP Date of Service: 09/10/23 Procedure(s): CT head/brain wo IV con Accession Number(s): [id number] cc: Chris Walker MD; Ofelia Hong NP [...] in OV> 09/10/23 1816 DD/ 1719 TD/TT: Escrow Processor: [place] [address] CT Scan Report Signed Patient: Reji Tony Jr MR#: [id number] : 1945 Acct:[id number] Age/Sex: 78 / M ADM Date: 09/10/23 Loc: HO.ED Attending Dr: Ordering Physician: Ofelia Hong NP Date of Service: 09/10/23 Procedure(s): CT head/brain wo IV con Accession Number(s): [id number] cc: Chris Walker MD; Ofelia Hong NP [...] in OV> 09/10/23 1816 DD/ 1719 TD/TT: Escrow Processor: Complete Blood Count Auto Saadia ff Reviewed date:09/14/2023 05:27:49 AM Interpretation: Performing Lab:[facility], [address] [place] [phone] Notes/Report: White Blood Count 5.7 4.8-10.8 X10*3/uL [...] Panel Reviewed date:09/14/2023 05:27:49 AM Interpretation: Performing Lab:[address] [phone] Notes/Report: Sodium 140 135-145 mmol/L Potassium 4.0 [...] Glomerular Filt Rate > 60 NOTE: For -[place] individuals, multiply the result by 1.210. Chronic Kidney Disease: Estimated GFR < 60 mL/min/1.73m2 Severe Kidney Disease: Estimated GFR < 15 mL/min/1.73m2 Glucose Random 81 60-115 mg/dL Calcium 8.9 8.4-10.2 mg/dL Vitamin B12 and Folate Reviewed date:09/14/2023 05:27:49 AM Interpretation: Performing Lab:[address] [phone] Notes/Report: Vitamin B12 392 200-900 pg/mL NORMAL 200-900 PG/ML INDETERMINATE 160-199 PG/ML DEFICIENT < 160 PG/ML Folate 7.1 > or = 4.0 ng/mL Reference Values: > or = 4.0 ng/mL < 4.0 ng/mL suggests folate deficiency Methotrexate, aminopterin and folinic acid (leucovorin) are chemotherapeutic agents whose molecular structures are similar to folate; therefore, the Cutter Machine Tender folate assay cannot be used for patients using these drugs. Thyroid Stimulating Hormone Reviewed date:09/14/2023 05:27:49 AM Interpretation: Performing Lab:[address] [phone] Notes/Report: Thyroid Stimulating Hormone 1.96 0.32-4.0 uIU/mL TSH 3rd Generation ([facility]) Drug Screen Urine Reviewed date:09/14/2023 05:27:49 AM Interpretation: Performing Lab:[address] [phone] Notes/Report: Opiate Screen Urine Not Detected Not [...] Cult Reviewed date:09/14/2023 05:27:49 AM Interpretation: Performing Lab:[facility], [address] [place] [phone] Notes/Report: [id number] Urine, Clean Catch Color Urine Yellow Appearance Urine Clear PH 6.0 5.0-9.0 Glucose Urine UA Negative Negative mg/dL Urine Blood Negative Negative Specific [place] - Urine 1.015 1.005-1.025 Urine Protein Negative Neg-Trace mg/dL Urine Ketones Negative Negative mg/dL Nitrite Urine Negative Negative Leukocyte Esterase Urine Negative Negative CT angio head neck Reviewed date:09/14/2023 05:27:49 AM Interpretation: Performing Lab: Notes/Report: [address] [address] [address] Scan Report Signed Patient: Reji Tony Jr MR#: [id number] : 1945 Acct:[id number] Age/Sex: 78 / M ADM Date: 09/10/23 Loc: .ED Attending Dr: Ordering Physician: Leonie Fuchs MD Date of Service: 09/11/23 Procedure(s): CT angio head neck Accession Number(s): [id number] cc: Chris Walker MD; Leonie Fuchs MD EXAMINATION: CT ANGIOGRAM HEAD CT ANGIOGRAM NECK CLINICAL INFORMATION: Reason for Exam ? tia COMPARISON: CT head without contrast 09/10/2023 TECHNIQUE: Initial noncontrast hydrometer tester imaging of the head and neck was performed. Noncontrast head CT was also performed. Test bolus sequences followed by intravenous administration 70 mL of Omnipaque 350. Helical imaging was performed in the axial plane from the aortic arch to the skull vertex. Delayed postcontrast imaging of the head was also performed. The data was processed at the mri technologist workstation for generation of MIP sequences. [...] P1 segment. Normal opacification of the distal REMOTE SENSING ENGINEER segments. Left Posterior Cerebral Artery: Normal P1 segment. Normal opacification of the distal REMOTE SENSING ENGINEER segments. Normal opacification of the superior sagittal, [...] in OV> 09/11/23 0219 DD/ 0125 TD/TT: Escrow Processor: [place] [address] CT Scan Report Signed Patient: Reji Tony Jr MR#: [id number] : 1945 Acct:[id number] Age/Sex: 78 / M ADM Date: 09/10/23 Loc: HO.ED Attending Dr: Ordering Physician: Leonie Fuchs MD Date of Service: 09/11/23 Procedure(s): CT ang io head neck Accession Number(s): [id number] cc: Chris Walker MD; Leonie Fuchs MD EXAMINATION: CT ANGIOGRAM HEAD CT ANGIOGRAM NECK CLINICAL INFORMATION: Reason for Exam ? tia COMPARISON: CT head without contrast 09/10/2023 TECHNIQUE: Initial noncontrast hydrometer tester imaging of the head and neck was performed. Noncontrast head CT was also performed. Test bolus sequences followed by intravenous administration 70 mL of Omnipaque 350. Helical imaging was performed in the axial plane from the aortic arch to the skull vertex. Delayed postcontrast imaging of the head was also performed. The data was process ed at the mri technologist workstation for generation of MIP sequences. [...] No focal stenosis or occlusion. Cervical Left Document Management Technician al Carotid Artery: Mild calcific atherosclerotic disease [...] of the distal CAREN segments. Left Anterior Cerebr al Artery: Normal [...] P1 segment. Normal opacification of the distal REMOTE SENSING ENGINEER segments. Left Posterior Cereb ral Artery: Normal P1 segment. Normal opacification of the distal REMOTE SENSING ENGINEER segments. Normal opacification of the superior sagittal, [...] in OV> 09/11/23 0219 DD/ 0125 TD/TT: Escrow Processor: MR head/brain wo con Reviewed date:09/14/2023 05:27:49 AM Interpretation: Performing Lab: Notes/Report: [address] [address] Magnetic Resonance Report Signed Patient: Reji Tony Jr MR#: [id number] : 1945 Acct:[id number] Age/Sex: 78 / M ADM Date: 09/11/23 Loc: [facility] 483-[address]: Malik Huffman MD Ordering Physician: Ellis Lopez MD Date of Service: 09/11/23 Procedure(s): MR head/brain wo con Accession Number(s): [id number] cc: Chris Walker MD; Ellis Lopez MD [...] in OV> 09/11/23 1621 DD/ 1236 TD/TT: Escrow Processor: AILYN [place] [address] Magnetic Resonance Report Signed Patient: Reji Tony Jr MR#: [id number] : 1945 Acct:[id number] Age/Sex: 78 / M ADM Date: 09/11/23 Loc: [facility] 483-[address]: Miguelina Huffman MD Ordering Physician: Ellis Lopez MD Date of Service: 09/11/23 Procedure(s): MR head/brain wo con Accession Number(s): [id number] cc: Chris Walker MD; Ellis Lopez MD [...] in OV> 09/11/23 1621 DD/ 1236 TD/TT: Escrow Processor: AILYN Hold Lav - Possible Hematolo gy Reviewed date:09/14/2023 05:27:48 AM Interpretation: Performing Lab:[facility], [address] [place] [phone] Notes/Report: Hold Lav - Possible Hematology SEE NOTE Specimen will be held untested for 8 hours. Call Hematology if testing is desired. Prothrombin Time INR Reviewed date:09/14/2023 05:27:48 AM Interpretation: Performing Lab:[facility], [address] [place] [phone] Notes/Report: Prothrombin Time 28.4 11.1-13.3 SEC INTERNATIONAL [...] Gel Reviewed date:09/14/2023 05:27:48 AM Interpretation: Performing Lab:[facility], [address] [place] [phone] Notes/Report: Hold Green Gel See Note Specimen held untested for 24 hours; Call to request Chemistry testing. INR WHOLE BLOOD POC Reviewed date:10/05/2023 04:55:55 AM Interpretation: Performing Lab:[facility], [address] [place] [phone] Notes/Report: PT, INR - Anti Coag Clinic 3.0 0.9-1.1 METER #: [id number] INTERNATIONAL NORMALIZED RATIO (INR) REFERENCE RANGES Reference [...] OC Reviewed date:10/05/2023 04:55:55 AM Interpretation: Performing Lab:[facility], [address] [place] [phone] Notes/Report: Prothrombin Time Whole Bld POC 35.8 11.1-13.5 sec INR WHOLE BLOOD POC Reviewed date:11/01/2023 10:54:06 AM Interpretation: Performing Lab:[facility], [address] [place] [phone] Notes/Report: PT, INR - Anti Coag Clinic 3.3 0.9-1.1 METER #: [id number] INTERNATIONAL NORMALIZED RATIO (INR) REFERENCE RANGES Reference [...] OC Reviewed date:11/01/2023 10:54:06 AM Interpretation: Performing Lab:[facility], [address] [place] [phone] Notes/Report: Prothrombin Time Whole Bld POC 39.5 11.1-13.5 sec INR WHOLE BLOOD POC Reviewed date:11/17/2023 05:37:31 AM Interpretation: Performing Lab:[facility], [address] [place] [phone] Notes/Report: PT, INR - Anti Coag Clinic 3.1 0.9-1.1 METER #: [id number] INTERNATIONAL NORMALIZED RATIO (INR) REFERENCE RANGES Reference [...] OC Reviewed date:11/17/2023 05:37:31 AM Interpretation: Performing Lab:[facility], [address] [place] [address] Notes/Report: Prothrombin Time Whole Bld POC 37.2 11.1-13.5 sec Complete Blood Count Auto Di ff Reviewed date:12/01/2023 05:55:56 PM Interpretation: Performing Lab:[facility], [address] [place] [address] Notes/Report: White Blood Count 5.5 4.8-10.8 X10*3/uL [...] NRBC Abs Auto 0.000 0.0-0.012 X10*3/uL Comprehensive Happy. Panel Fa st Reviewed date:12/01/2023 05:55:56 PM Interpretation: Performing Lab:[facility], [address] [place] [phone] Notes/Report: Sodium 141 135-145 mmol/L Potassium 3.9 3.3-5.1 mmol/L Chloride 107 96-108 mmol/L Carbon Dioxide 30 22-29 mmol/L Anion Gap 8 12-20 Blood Urea Nitrogen 11 9-16 mg/dL Creatinine 0.99 0.5-1.4 mg/dL Estimated Glomerular Filt Rate > 60 NOTE: For -[place] individuals, multiply the result by 1.210. Chronic [...] Panel Reviewed date:12/01/2023 05:55:56 PM Interpretation: Performing Lab:[facility], [address] [place] [phone] Notes/Report: Triglycerides 92 <150 mg/dL Desirable Triglyceride: [...] Antigen Reviewed date:12/01/2023 05:55:56 PM Interpretation: Performing Lab:[facility], [address] [place] [phone] Notes/Report: Prostate Specific Antigen 2.40 <0.05-4.0 ng/mL PSA methodology: [place] Alinity i Chemiluminescent Microparticle Immunoassay (CMIA) Vitamin D 25-OH Total Reviewed date:12/01/2023 05:55:56 PM Interpretation: Performing Lab:[facility], [address] [place] [phone] Notes/Report: Vitamin D 25-OH Total 34.0 >30 [...] POC Reviewed date:12/08/2023 04:11:05 AM Interpretation: Performing Lab:[facility], [address] [place] [phone] Notes/Report: PT, INR - Anti Coag Clinic 3.2 0.9-1.1 METER #: [id number] INTERNATIONAL NORMALIZED RATIO (INR) REFERENCE RANGES Reference [...] OC Reviewed date:12/08/2023 04:11:05 AM Interpretation: Performing Lab:[facility], [address] [place] [phone] Notes/Report: Prothrombin Time Whole Bld POC 37.9 11.1-13.5 sec INR WHOLE BLOOD POC Reviewed date:12/21/2023 07:45:27 PM Interpretation: Performing Lab:[address] [address] Notes/Report: PT, INR - Anti Coag Clinic 2.6 0.9-1.1 METER #: [id number] INTERNATIONAL NORMALIZED RATIO (INR) REFERENCE RANGES Reference [...] OC Reviewed date:12/21/2023 07:45:27 PM Interpretation: Performing Lab:[facility], [address] [place] [phone] Notes/Report: Prothrombin Time Whole Bld POC 31.8 11.1-13.5 sec Complete Blood Count Auto Di ff Reviewed date:01/01/2024 06:46:31 AM Interpretation: Performing Lab:[address] [address] Notes/Report: White Blood Count 6.4 4.8-10.8 X10*3/uL [...] INR Reviewed date:01/01/2024 06:46:32 AM Interpretation: Performing Lab:[address] [phone] Notes/Report: Prothrombin Time 23.4 11.1-13.3 SEC INTERNATIONAL [...] Panel Reviewed date:01/01/2024 06:46:31 AM Interpretation: Performing Lab:[facility], [address] [place] [phone] Notes/Report: Bilirubin Total 1.0 0.0-1.0 mg/dL Bilirubin Direct 0.3 0.0-0.5 mg/dL Aspartate Amino Transferase 19 5-37 U/L Alanine Aminotransferase 20 0-40 U/L Total Protein 6.9 6.5-8.0 g/dL Albumin Level 4.0 3.5-5.0 g/dL Alkaline Phosphatase 87 39-117 U/L Basic Metabolic Panel Reviewed date:01/01/2024 06:46:31 AM Interpretation: Performing Lab:[facility], [address] [place] [phone] Notes/Report: Sodium 140 135-145 mmol/L Potassium 4.3 [...] Glomerular Filt Rate > 60 NOTE: For -[place] individuals, multiply the result by 1.210. Chronic Kidney Disease: Estimated GFR < 60 mL/min/1.73m2 Severe Kidney Disease: Estimated GFR < 15 mL/min/1.73m2 Glucose Random 111 60-115 mg/dL Calcium 9.9 8.4-10.2 mg/dL Troponin-I High Sensitivity Reviewed date:01/01/2024 06:46:32 AM Interpretation: Performing Lab:[address] [phone] Notes/Report: Troponin-I High Sensitivity 5.8 <3.5-35.0 ng/L The [place] high sensitivity Troponin-I results should be used in conjunction with other diagnostic information such as ECG, clinical observations and information, and patient symptoms to aid in the diagnosis of AL. Ethanol Reviewed date:01/01/2024 06:46:31 AM Interpretation: Performing Lab:[facility], [address] [place] [phone] Notes/Report: Ethanol < 10 Serum/plasma ethanol results are to be used for medical/treatment purposes only. UA CC w/rflx Micro + Cult Reviewed date:01/01/2024 06:46:32 AM Interpretation: Performing Lab:[facility], [address] [place] [phone] Notes/Report: Urine, Clean Catch Color Urine Yellow Appearance Urine Clear PH 6.5 5.0-9.0 Glucose Urine UA Negative Negative mg/dL Urine Blood Negative Negative Specific [place] - Urine 1.015 1.005-1.025 Urine Protein Negative Neg-Trace mg/dL Urine Ketones Negative Negative mg/dL Nitrite Urine Negative Negative Leukocyte Esterase Urine Negative Negative XR chest 2V Reviewed date:01/01/2024 06:46:32 AM Interpretation: Performing Lab: Notes/Report: [address] [address] XRay Report Signed Patient: Reji Tony Jr MR#: [id number] : 1945 Acct:[id number] Age/Sex: 78 / M ADM Date: 12/29/23 Loc: HO.ED Attending Dr: Ordering Physician: Raul Moon MD Date of Service: 12/29/23 Procedure(s): XR chest 2V Accession Number(s): [id number] cc: Chris Walker MD; Raul Moon MD [...] MD in OV> 12/29/232043 DD/ 18 TD/TT: Escrow Processor: [address] [address] XRay Report Signed Patient: Reji Tony Jr MR#: [id number] : 1945 Acct:[id number] Age/Sex: 78 / M ADM Date: 12/29/23 Loc: HO.ED Attending Dr: Ordering Physician: Raul Moon MD Date of Service: 12/29/23 Procedure(s): XR dexter st 2V Accession Number(s): [id number] cc: Chris Walker MD; Raul Moon MD [...] MD in OV> 12/29/232043 DD/ 18 TD/TT: Escrow Processor: POLLO Troponin-I High Sensitivity Reviewed date:01/01/2024 06:46:31 AM Interpretation: Performing Lab:[facility], [address] [place] [phone] Notes/Report: Troponin-I High Sensitivity 6.4 <3.5-35.0 ng/L [place] high sensitivity Troponin-I results should be used in conjunction with other diagnostic information such as ECG, clinical observations and information, and patient symptoms to aid in the diagnosis of AL. INR WHOLE BLOOD POC Reviewed date:01/09/2024 01:09:03 PM Interpretation: Performing Lab:[facility], [address] [place] [phone] Notes/Report: PT, INR - Anti Coag Clinic 2.4 0.9-1.1 METER #: [id number] INTERNATIONAL NORMALIZED RATIO (INR) REFERENCE RANGES Reference [...] OC Reviewed date:01/09/2024 01:09:03 PM Interpretation: Performing Lab:[facility], [address] [place] [phone] Notes/Report: Prothrombin Time Whole Bld POC 28.7 11.1-13.5 sec INR WHOLE BLOOD POC Reviewed date:01/30/2024 01:23:13 PM Interpretation: Performing Lab:[facility], [address] [place] [phone] Notes/Report: PT, INR - Anti Coag Clinic 2.8 0.9-1.1 METER #: [id number] INTERNATIONAL NORMALIZED RATIO (INR) REFERENCE RANGES Reference [...] OC Reviewed date:01/30/2024 01:23:13 PM Interpretation: Performing Lab:[facility], [address] [place] [phone] Notes/Report: Prothrombin Time Whole Bld POC 33.2 11.1-13.5 sec Complete Blood Count Auto Di ff Reviewed date:02/19/2024 04:13:16 PM Interpretation: Performing Lab:[facility], [address] [place] [phone] Notes/Report: White Blood Count 7.5 4.8-10.8 X10*3/uL [...] Panel Reviewed date:02/19/2024 04:13:16 PM Interpretation: Performing Lab:[facility], [address] [place] [phone] Notes/Report: Sodium 135 135-145 mmol/L Potassium 4.4 3.3-5.1 mmol/L Chloride 103 96-108 mmol/L Carbon Dioxide 27 22-29 mmol/L Anion Gap 9 12-20 Blood Urea Nitrogen 11 9-16 mg/dL Creatinine 0.95 0.5-1.4 mg/dL Estimated Glomerular Filt Rate > 60 NOTE: For -[place] individuals, multiply the result by 1.210. Chronic [...] Panel Reviewed date:02/19/2024 04:13:16 PM Interpretation: Performing Lab:[facility], [address] [place] [phone] Notes/Report: Triglycerides 133 <150 mg/dL Desirable Triglyceride: [...] Antigen Reviewed date:02/19/2024 04:13:16 PM Interpretation: Performing Lab:[facility], [address] [place] [phone] Notes/Report: Prostate Specific Antigen 2.74 <0.05-4.0 ng/mL PSA methodology: [place] [employer] i Chemiluminescent Microparticle Immunoassay (CMIA) Vitamin D 25-OH Total Reviewed date:02/19/2024 04:13:16 PM Interpretation: Performing Lab:[facility], [address] [place] [phone] Notes/Report: Vitamin D 25-OH Total 36.1 >30 [...] POC Reviewed date:02/19/2024 04:13:16 PM Interpretation: Performing Lab:[address] [address] Notes/Report: PT, INR - [facility] 2.6 0.9-1.1 METER #: [id number] INTERNATIONAL NORMALIZED RATIO (INR) REFERENCE RANGES Reference [...] OC Reviewed date:02/19/2024 04:13:16 PM Interpretation: Performing Lab:[facility], [address] [place] [phone] Notes/Report: Prothrombin Time Whole Bld POC 30.9 11.1-13.5 sec INR WHOLE BLOOD POC Reviewed date:03/21/2024 07:54:24 PM Interpretation: Performing Lab:[facility], [address] [place] [phone] Notes/Report: PT, INR - [facility] 2.6 0.9-1.1 METER #: [id number] INTERNATIONAL NORMALIZED RATIO (INR) REFERENCE RANGES Reference [...] OC Reviewed date:03/21/2024 07:54:24 PM Interpretation: Performing Lab:[facility], [address] [place] [phone] Notes/Report: Prothrombin Time Whole Bld POC 31.1 11.1-13.5 sec INR WHOLE BLOOD POC Reviewed date:04/21/2024 01:28:43 PM Interpretation: Performing Lab:[facility], [address] [place] [phone] Notes/Report: PT, INR - [facility] 2.2 0.9-1.1 METER #: [id number] INTERNATIONAL NORMALIZED RATIO (INR) REFERENCE RANGES Reference [...] OC Reviewed date:04/21/2024 01:28:43 PM Interpretation: Performing Lab:[facility], [address] [place] [phone] Notes/Report: Prothrombin Time Whole Bld POC 26.7 11.1-13.5 sec INR WHOLE BLOOD POC Reviewed date:05/19/2024 04:52:16 AM Interpretation: Performing Lab:[facility], [address] [place] [phone] Notes/Report: PT, INR - Anti [facility]ag Clinic 2.4 0.9-1.1 METER #: [id number] INTERNATIONAL NORMALIZED RATIO (INR) REFERENCE RANGES Reference [...] OC Reviewed date:05/19/2024 04:52:16 AM Interpretation: Performing Lab:[facility], [address] [place] [phone] Notes/Report: Prothrombin Time Whole Bld POC 28.3 11.1-13.5 sec INR WHOLE BLOOD POC (Not yet reviewed by provider) Interpretation: Performing Lab:[facility], [address] [place] [phone] Notes/Report: PT, INR - [facility]ag Clinic 2.3 0.9-1.1 METER #: [id number] INTERNATIONAL NORMALIZED RATIO (INR) REFERENCE RANGES Reference [...] 3.5 Prothrombin Time Whole Bld P OC (Not yet reviewed by provider) Interpretation: Performing Lab:[address] [phone] Notes/Report: Prothrombin Time Whole Bld POC 28.0 11.1-13.5 sec Reason For Referral No Information [...] M OUTH EVERY 12 HOURS Oral Active Immunizations Vaccine [...] Problem Status W/U Status Risk Notes Problem 4774002 Former smoker (Z87.891) Active confirmed He has a plan to prevent relapse in times of stress and illness. Problem 832204457 Overweight (BMI 25.0-29.9) (E66.3) Active confirmed His body mass index is 27. We discussed weight reduction strategies. We discussed diet and nutrition. Problem Hypertension (69850923) Hypertension (I10) Active confirmed His blood pressure today is 117/62. No change in his regimen was made. Problem 706341760 Seizure disorder (G40.909) Active confirmed Problem 973387644 GERD without esophagitis (K21.9) Active confirmed There is esophageal reflux is well controlled with uyrx-elt-pfwkry r medication. Problem 512601277 Anticoagulated (Z79.01) Active confirmed He has had no bleeding since his last visit. He is compliant with his anticoagulation . Problem 602859835 Pulmonary nodule (R91.1) Active confirmed Thoracic surgery has elected to follow this conservatively with a CT scan at 3 months in January 2023 to follow the nodule. He is on schedule for the imaging. He had no pulmonary symptoms today. He denies hemoptysis or weight loss. Problem Hyperlipidaemia (51620546) Hyperlipemia (E78.5) Active confirmed His lipids are well controlled. No change in his regimen was necessary today. Problem 853081658 Primary osteoarthritis of both knees (M17.0) Active confirmed He has had one knee replacement which is functioning well. He has mild pain in the opposite knee. He will continue on his current regimen. The pain in his knees remains the same but he can conduct all of the activities of daily life. He will see the orthopedist regularly. Problem 519075951 Coronary artery disease involving [place] coronary artery of [place] heart without angina pectoris (I25.10) Active confirmed He denies any recent chest pain. He was evaluated for coronary syndrome, May 25, 2022 in the emergency room with negative results. Problem 1297798767384 Benign prostatic hyperplasia with lower urinary tract symptoms (N40.1) Active confirmed We have discussed lifestyle modification as a way to reduce nocturia. Problem 599194876 Elevated PSA (R97.20) Active confirmed A new finding on the recent blood work was an elevated PSA. It has increased from 1.06-1.75 and is now 4.21. He will have a free PSA. A repeat value will be done. If necessary, he will be referred to urology for evaluation. Problem 28486419 Reactive depression (F32.9) Active confirmed He feels that his depression is worse through the winter. We will help him get in touch with the mental health provider Problem 081289651 Adenomatous polyp of colon, unspecified part of colon (D12.6) Active confirmed He will continue to have colonoscopies as needed. Problem 51989155 Closed fracture of multiple ribs of left side, initial encounter (S22.42XA) Active confirmed He has 3 rib fractures are recent fall. He will continue current therapy until the pain resolves. Problem 75930476386421853 Carpal tunnel syndrome on both sides (G56.03) Active confirmed He reports having carpal tunnel syndrome. He has an appointment with a hand surgeon next month. I have taken his history today and examined him. I have reviewed his blood work and EKG. He is medically cleared to undergo the surgery. The risk is minimal at the benefit is great. Problem 969755212 Nonrheumatic mitral valve regurgitation (I34.0) Active confirmed The mitral regurgitation has been documented on an echocardiogram and is mild and asymptomatic. He is free of dyspnea with exertion. A murmur was not heard on auscultation today. Problem 571641924 Chronic atrial fibrillation (I48.20) Active confirmed He [...] Date Provider Diagnosis Chris Walker III, MD [address] [place] [address] [place] [phone] 09/14/2023 Chris Walker Hypertension I10 ; W ord finding difficulty R47.89 ; Hyperlipemia E78.5 ; Benign prostatic hyperplasia with lower urinary tract symptoms N40.1 ; Reactive depression F32.9 ; Overweight (BMI 25.0-29.9) E66.3 ; Nonrheumatic mitral valve regurgitation I34.0 ; Coronary artery disease involving [place] coronary artery of [place] heart without angina pectoris I25.10 ; Primary osteoarthritis of both knees M17.0 ; GERD without esophagitis K21.9 and Former smoker Z87.891 Chris Walker III, MD [address] [place] [address] [place] [phone] 10/05/2023 Chris Walker Hypertension I10 ; Seizure R56.9 ; Hyperlipemia E78.5 ; Benign prostatic hyperplasia with lower urinary tract symptoms N40.1 ; Reactive depression F32.9 ; Overweight (BMI 25.0-29.9) E66.3 ; Primary osteoarthritis of both knees M17.0 ; Elevated PSA R97.20 ; Coronary artery disease involving [place] coronary artery of [place] heart without angina pectoris I25.10 ; Nonrheumatic mitral valve regurgitation I34.0 ; Chronic atrial fibrillation I48.20 ; GERD without esophagitis K21.9 ; Carpal tunnel syndrome on both sides G56.03 and Former smoker Z87.891 Chris Walker III, MD [address] [place] [address] [place] [address] 12/03/2023 Chris Walker Hypertension I10 ; Hyperlipemia E78.5 ; Overweight (BMI 25.0-29.9) E66.3 ; Coronary artery disease involving [place] coronary artery of [place] heart without angina pectoris I25.10 ; Benign prostatic hyperplasia with lower urinary tract symptoms N40.1 ; GERD without esophagitis K21.9 ; Nonrheumatic mitral valve regurgitation I34.0 and Former smoker Z87.891 Chris Walker III, MD [address] [place] [address] [place] [address] 01/01/2024 Chris Walker Hypertension I10 ; Benign prostatic hyperplasia with lower urinary tract symptoms N40.1 ; Hyperlipemia E78.5 ; Overweight (BMI 25.0-29.9) E66.3 ; Reactive depression F32.9 ; Nonrheumatic mitral valve regurgitation I34.0 ; Coronary artery disease involving [place] coronary artery of [place] heart without angina pectoris I25.10 ; Primary osteoarthritis of both knees M17.0 ; Chronic atrial fibrillation I48.20 ; Anticoagulated Z79.01 and 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 Chris Walker III, MD [address] [place] [address] [place] [phone] 01/09/2024 Chris Walker Hypertension I10 ; Syncope, unspecified syncope type R55 ; Benign prostatic hyperplasia with lower urinary tract symptoms N40.1 ; Reactive depression F32.9 ; Overweight (BMI 25.0-29.9) E66.3 ; Nonrheumatic mitral valve regurgitation I34.0 ; Chronic atrial fibrillation I48.20 and Former smoker Z87.891 Chris Walker III, MD [address] [place] [address] [place] [phone] 02/06/2024 Chris Walker Hypertension I10 ; Hyperlipemia E78.5 ; Benign prostatic hyperplasia with lower urinary tract symptoms N40.1 ; Overweight (BMI 25.0-29.9) E66.3 ; Nonrheumatic mitral valve regurgitation I34.0 ; Coronary artery disease involving [place] coronary artery of [place] heart without angina pectoris I25.10 ; Primary osteoarthritis of both knees M17.0 ; Carpal tunnel syndrome on both sides G56.03 ; Anticoagulated Z79.01 ; Chronic atrial fibrillation I48.20 and Former smoker Z87.891 Chris Walker III, MD [address] [place] [address] [place] [phone] 03/05/2024 Chris Walker Hypertension I10 ; Hyperlipemia E78.5 ; Benign prostatic hyperplasia with lower urinary tract symptoms N40.1 ; Overweight (BMI 25.0-29.9) E66.3 ; Nonrheumatic mitral valve regurgitation I34.0 ; Coronary artery disease involving [place] coronary artery of [place] heart without angina pectoris I25.10 ; Primary osteoarthritis of both knees M17.0 ; Anticoagulated Z79.01 ; Chronic atrial fibrillation I48.20 and Former smoker Z87.891 Chris Walker III, MD [address] [place] [address] [place] [phone] 04/30/2024 Chris Walker Hypertension I10 ; Coronary artery disease involving [place] coronary artery of [place] heart without angina pectoris I25.10 ; Overweight (BMI 25.0-29.9) E66.3 ; Benign prostatic hyperplasia with lower urinary tract symptoms N40.1 ; Primary osteoarthritis of both knees M17.0 ; Reactive depression F32.9 ; Former smoker Z87.891 and Nonrheumatic mitral valve regurgitation I34.0 Chris Walker III, MD [address] [place] [address] [place] [phone] 09/10/2023 Chris Walker III, MD [address] [place] [address] [place] [phone] 01/01/2024 Chris Walker III, MD [address] [place] [address] [place] [phone] 01/11/2024 Chris Walker III, MD [address] [place] [address] [address] [place] [address] 01/17/2024 Chris Walker III, MD [address] [place] [address] [address] [place] [address] 03/27/2024 Chris Walker III, MD [address] [place] [address] [address] [place] [address] 03/28/2024 Chris Walker Assessments Encounter Date Diagnosis (ICD Code) Assessment Notes Treat ment Notes Treatment Clinical Notes 09/14/2023 Hypertension (ICD-10 - I10) His blood [...] was made. 04/30/2024 Coronary artery disease involving [place] coronary artery of [place] heart without angina pectoris (ICD-10 - I25.10) He denies any recent chest pain. He was evaluated for coronary syndrome, May 25, 2022 in the emergency room with negative results. 09/14/2023 Hyperlipemia (ICD-10 - E78.5) The current [...] reduction strategies. We discussed diet and nutrition. 09/14/2023 Benign prostatic hyperplasia with lower urinary [...] reduce nocturia. 12/03/2023 Coronary artery disease involving [place] coronary artery of [place] heart without angina pectoris (ICD-10 - I25.10) [...] modification as a way to reduce nocturia. 09/14/2023 Reactive depression (ICD-10 - F32.9) He [...] He will see the orthopedist regularly. 09/14/2023 Overweight (BMI 25.0-29.9) (ICD-10 - E66.3) [...] is esophageal reflux is well controlled with usjc-uoq-stniflz medication. 01/01/2024 Nonrheumatic mitral valve regurgitation (ICD-10 [...] auscultation today. 02/06/2024 Coronary artery disease involving [place] coronary artery of [place] heart without angina pectoris (ICD-10 - I25.10) He denies any recent chest pain. He was evaluated for coronary syndrome, May 25, 2022 in the emergency room with negative results. 03/05/2024 Coronary artery disease involving [place] coronary artery of [place] heart without angina pectoris (ICD-10 - I25.10) [...] auscultation today. 01/01/2024 Coronary artery disease involving [place] coronary artery of [place] heart without angina pectoris (ICD-10 - I25.10) [...] in times of stress and illness. 09/14/2023 Coronary artery disease involving [place] coronary artery of [place] heart without angina pectoris (ICD-10 - I25.10) [...] was not heard on auscultation today. 09/14/2023 Primary osteoarthritis of both knees (ICD-10 [...] orthopedist regularly. 10/05/2023 Coronary artery disease involving [place] coronary artery of [place] heart without angina pectoris (ICD-10 - I25.10) [...] fibrillation today. His heart rate is unremarkable. 09/14/2023 GERD without esophagitis (ICD-10 - K21.9) There is esophageal reflux is well controlled with ahnk-wbn-edguxjo medication. 10/05/2023 Nonrheumatic mitral valve regurgitation (ICD-10 [...] is esophageal reflux is well controlled with iwsx-tvi-sxvjnmn medication. 10/05/2023 Carpal tunnel syndrome on both [...] Panel 05/25/2023 Vitamin D 25-OH Total 02/06/2024 INR WHOLE BLOOD POC 06/13/2024 Prothrombin Time Whole Bld POC Next Appt Details Provider Name:Chris Walker, 07/30/2024 02:00:00 PM, [address] [place] [address] [address], [place], [phone], Provider Name:Chris Walker, 12/03/2024 04:00:00 PM, [address] [place] [address] [address], [place], [phone], Insurance Providers Payer Name Payer Address Payer Phone Subscriber Number Group Number Insured Name Patient Relationship to Insured Coverage Start Date Coverage End Date brotips [address] [place] [address] [id number] Reji Tony Self - patient is the insured MEDICARE NGS [address] [place] [phone] [id number] Reji Tony Self - patient is the insured Medical (General) History Medical History History ICD Code BPH (benign prostatic hyperplasia) N40.0 HTN (hypertension) I10 Anxiety F41.9 Depression F32.9 overweight hyperlipidemia osteoarthritis both knees right 11th rib fracture 04/2020 bilateral rotator cuff tears 8 mm pulmonary nodule inferior and lateral cardiac ischemia [facility] [address] Dr. Tapia tubular adenoma 1988 colonoscopy [...] living in an independent living facility at [facility] and has stopped driving due to his brain issues. Surgical History Surgery Date(Month/Year) laser prostatectomy Dr. To 2017 history of suprapubic catheter insertion right total knee replacement colonoscopy tubular adenoma Dr. Angulo no 1988 colonoscopy [facility] 2019 appendectomy Past surgery on right knee Hospitalization History Reason Date(Month/Year) Altered mental state, Seizure and Afib 0 02/2022 COVID 04/2022 No history
--- OUTSIDE RECORDS SUMMARY | 2024-06-13 14:28 | XMS_ITS ---
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 Date/Time Encounter Type Encounter Description Reason Pro vider Source November 06, 2023 10:34 AM Outpatient Encounter TELEPHONE PRIMARY CARE IHE Encounter Template Text not used by [place] Plan of Treatment: Future Appointments (+ 6 [...] 20 appointments. The data comes from all [place] treatment facilities. Appointment Date/Time Appointment Type Appointme nt Facility Name Dec 05, 2023 02:00 PM AMBULATORY - MEDICINE [facility] Social History: Smoking Status (Most current) and Tobacco Use (All prior to encounter date) This section includes the most current, and the historical, smoking and tobacco- related health factors from the [place] facility where the Encounter took place. Current Smoking Status This section includes the most current smoking, or tobacco-related health factor, from the [place] facility where the Encounter took place. Date/Time Current Smoking Status Comment Facil ity November 06, 2023 10:34 AM [place]-TOBACCO FORMER USER [facility] Tobacco Use History This section includes a history of the smoking, or tobacco-related health factors, that were collected on or before the date of the Encounter. The data comes from the [place] facility where the Encounter took place. Date/Time Smoking Status/Tobacco Use Comment F acjamia November 06, 2023 10:34 AM [place]-TOBACCO QUIT 15 YRS OR MORE [facility] Advance Directives: All historical and current Section Date Range: From patient's date of to the date document was created. This section includes ALL of a patient's completed or amended [place] Advance and Rescinded Directives. The entries below indicate that a directive exists for the patient, but an actual copy is not included with this document. The data comes from all [place] facilities. Date Advance Directives Provider Source Dec 05, 2023 ADVANCE DIRECTIVE DELIA DEL VALLE [facility] Encounter Notes: All associated encounter notes [...] community providers: 1. Deb Primary Care Provider [address] [place] [address] [place] [address], [place] ======== Vianca says that he has [...] 7. Hyperlipemia 8. Coronary artery disease- involving [place] coronary artery of [place] heart without angina pectoris 9. Primary osteoarthritis [...] ========= /es/ ELLEN ADEN MSN Ed., BSN LITIGATION ASSOCIATE NURSE Signed: 11/06/2023 14:36 Receipt Acknowledged By: 11/06/2023 15:39 /es/ SAMANTHA MALONE Nurse Practitioner 11/06/2023 14:48 /es/ TREVOR ASHLEY, MSN, RN, CNL PRIMARY CARE TEAM NURSE ELLEN ADEN [facility] November 06, 2023 10:36 AM LETTERS: LOCAL TITLE: PATIENT LETTER (B) STANDARD TITLE: LETTERS DATE OF NOTE: NOVEMBER 06, 2023@10:36 ENTRY DATE: NOVEMBER 06, 2023@10:36:56 AUTHOR: ELLEN ADEN EXP COSIGNER: URGENCY: STATUS: [place] [address] [phone] * [phone] * Date: 11/06/23 Dear : Sandra Thank you for choosing the Department of [facility] ([place]) [facility]. Please be a few minutes early to this appt- about 15 mins. We would like to update your demographic information. To schedule or if you would like more information regarding [place] health care benefits, please call toll free at [phone]), visit the [place] website at www.[email or web address].gov/health[place], or contact your local [facility]. Welcome to patient aligned care team (Pact [...] or you may have them faxed to [phone] ATTN: LUIS EDUARDO/NO/PACT-Crow [place] If you have any questions, please do not hesitate to contact the Department of [place] Affairs call center at Ext [phone]. Just so that you know if you're feeling sick we have sick call hours at the [facility], and the [facility]- Sun thru Sunday 08-1530- first come first serve- walk-in basis. [facility] also has sick call hours Sun- Sun- 1100-12N, and 3P-4P- first come first serve basis- no appt needed. You can utilize our sick call system once you have seen the PCP for the first appt. Audiology Phone number- [phone] Ext [phone] Optometry Phone Number- [phone] Ext [phone] Mental Health Clinic- [phone] Ext- [phone] Eligibility/Enrollment- [phone]- Ext-[phone], or- [phone] Veterans Rep [phone] Ext [phone] LAURI Orchard [phone] [place] Transportation [phone] Ext [phone], or,[phone] [place] Act [phone] ( Call within 72hrs of being seen in an acute care setting Sincerely. [facility] [address] [place] [address] Phone: Ext [phone] Upcoming Appointments: 12/05/23@1400- LUIS EDUARDO/NO/EAEV-2-PwiwmkjlKarl Aden MSN Ed., BSN, RN [facility] [address] [address] [place] [address] [place] [address] - Ext [phone] [facility] [address] [facility] [place] [address] [address] [facility] # [phone] [place] [address] ELLEN ADEN [place] [facility] [facility] November 06, 2023 10:35 AM LETTERS: LOCAL TITLE: PATIENT LETTER (B) STANDARD TITLE: LETTERS DATE OF NOTE: NOVEMBER 06, 2023@10:35 ENTRY DATE: NOVEMBER 06, 2023@10:36 AUTHOR: ELLEN ADEN EXP COSIGNER: URGENCY: STATUS: COMPLETED [facility] [address] [place] [phone] * [phone] * Date: 11/06/23 Dear [place]: Sandra Thank you for choosing the [facility] [facility]. The Whole Health Program aims to support you in pursuing what matters most to you, and includes services that support your values and overall wellness. This includes the following offerings: * Yoga * Acupuncture * [place] Acupuncture for Acute Pain (offered weekly; drop-in or scheduled) * Individual health coaching * Siphon Operator * Biofeedback for Hypertension and Anxiety * Guided Imagery Group * Meditation Group * Cancer Support Group * Stress Management Group ( Stress Less ) The following require no referral from a provider, and can be initiated by you at any time: * Yoga * Meditation * [place] Acupuncture * Cancer Support Group * Individual Health Coaching * Stress Management Group ( Stress Less ) If interested in any of the above offerings, please reach out to the Whole Health Team at ext. [phone]. To schedule consult-required services, or if you would like more information regarding [place] health care benefits, please call toll free at [phone]), visit the [place] website at [place], or contact your local [place] Medical Center. If you have any questions, please do not hesitate to contact the [facility] [place] call center. Sincerely. Dr. Fanny Hernandez [facility] and Integrated [facility] Direct ELLEN ADEN [place] [facility] [place] [facility] November 06, 2023 10:34 AM PREVENTIVE MEDICINE [...] Not at all Suicide Screen: C-SSRS Screening [place] Suicide Severity Rating Scale (C-SSRS) screener 1. [...] Not worried about housing near future The [place] reports the following: Within the past 12 [...] caregiver's preferred language for healthcare? Preferred Language: Pashto PTSD Screening: PC-PTSD-5 A PTSD screening test [...] due to responses to other questions. 5. [place] numb or detached from people, activities, or your surroundings? Response not required due to responses to other questions. 6. [place] guilty or unable to stop blaming yourself [...] questions. /malka/ ELLEN ADEN MSN Ed., BSN LITIGATION ASSOCIATE NURSE Signed: 11/06/2023 14:35 ELLEN ADEN CNTRL [facility]
--- OUTSIDE RECORDS SUMMARY | 2024-06-13 14:28 | XMS_ITS ---
Author Name [facility] [place] Organization [facility] [place] [place] Address [address] [place] [id number] Care Team Providers Care Beader Name Role Phone SUNIL MONSIVAIS Primary Care [...] Amaya [facility] (WNR) MEDICARE ADVANTAGE [facility] ([facility] Jun 11, 2023 [id number] SANDRA LIU PATIENT Selected Encounter This section includes the information on record at [place] for the Encounter. Date/Time Encounter Type Encounter Description Reason Provider Source Dec 05, 2023 02:00 PM OFFICE O/P EST MOD 30 MIN PRIMARY CARE/MEDICINE ICD-10-CM K21.9 Gastro-esophageal reflux disease without esophagitis SUNIL MONSIVAIS [facility] Encounter Template Text not used by [place] Assessments - Encounter Diagnoses This section includes the primary and secondary diagnoses documented for the Encounter. Date/Time Primary/Secondary Diagnosis Diagnosis Name Provider Source Dec 05, 2023 03:14 PM PRIMARY Gastro-esophageal reflux disease without esophagitis SUNIL MONSIVAIS [facility] [place] [facility] Dec 05, 2023 03:14 PM SECONDARY Anxiety disorder, unspecified LOI,SUNIL FINCH [facility] [place] [place] [facility] Dec 05, 2023 03:14 PM SECONDARY Benign prostatic hyperplasia without lower urinry tract symp LOI,SUNIL HUBBARDNE [facility] [place] [place] [facility] Dec 05, 2023 03:14 PM SECONDARY Bilateral primary osteoarthritis of knee LOI,SUNIL STEF [facility] [place] [facility] Dec 05, 2023 03:14 PM SECONDARY Chronic atrial fibrillation, unspecified LOI,SUNIL STEF [facility] [place] [facility] Dec 05, 2023 03:14 PM SECONDARY Depression, unspecified LOI,SUNIL STEF [facility] [place] [facility] Dec 05, 2023 03:14 PM SECONDARY Hyperlipidemia, unspecified LOI,SUNIL STEF [facility] [place] [facility] Dec 05, 2023 03:14 PM SECONDARY Solitary pulmonary nodule LOI,SUNIL STEF [facility] [place] [facility] Dec 05, 2023 03:14 PM SECONDARY Unspecified convulsions LOI,SUNIL HUBBARDNE [facility] [place] [place] [facility] Vital Signs: All taken on the encounter date This section contains inpatient and outpatient Vital Signs collected on the date of the Encounter. Date/Time Temperature Pulse Blood Pressure Respiratory Rate SP02 Pain Height Weight Body Mass Index Source Dec 05, 2023 02:24 PM 98.3 70 100/62 16 95 70 175 25 [place] [facility] [place] [facility] Social History: Smoking Status (Most current) and Tobacco Use (All prior to encounter date) This section includes the most current, and the historical, smoking and tobacco- related health factors from the [place] facility where the Encounter took place. Current Smoking Status This section includes the most current smoking, or tobacco-related health factor, from the [place] facility where the Encounter took place. Date/Time Current Smoking Status Comment Facil itNovember 06, 2023 10:34 AM VA-TOBACCO FORMER USER [facility] [place] [facility] Tobacco Use History This section includes a history of the smoking, or tobacco-related health factors, that were collected on or before the date of the Encounter. The data comes from the [place] facility where the Encounter took place. Date/Time Smoking Status/Tobacco Use Comment F acility November 06, 2023 10:34 AM [place]-TOBACCO QUIT 15 YRS OR MORE [facility] Advance Directives: All historical and current Section Date Range: From patient's date of to the date document was created. This section includes ALL of a patient's completed or amended [place] Advance and Rescinded Directives. The entries below indicate that a directive exists for the patient, but an actual copy is not included with this document. The data comes from all [place] facilities. Date Advance Directives Provider Source Dec 05, 2023 ADVANCE DIRECTIVE DELIA DEL VALLE [facility] Encounter Notes: All associated encounter notes This [...] continues has EEG (he thinks ) at [facility] next week, workup ongoing Chronic atrial fibrillation is anticoagulated on warfarin, Nonrheumatic mitral valve regurgitation- The mitral regurgitation has been documented on an echocardiogram and is mild and asymptomatic. He is free of dyspnea with exertion. He no longer sees fisher hoop net He likely is on propranolol for rate [...] he is not sure why CAD involving [place] coronary artery of [place] heart without angina pectoris osteoarthritis bilateral knees- Had right TKR x2 he manages with mild activity he thinks he might need a walker Benign prostatic hyperplasia with lower urinary tract symptoms also with elevated PSA increased from about 1 to 4 and apparently referred to Urology Depression Follows with Dr Locke in the [facility], takes propranolol 60mg daily, he would like to stay with her for now Past Medical History: Active problems - Computerized Problem List is the source for the followin. Ex-smoker 2. Overweight 3. Hypertensive disorder 4. Gastroesophageal reflux disease without esophagitis 5. H/O: anticoagulant therapy 6. Solitary nodule of lung 7. Hyperlipidemia 8. Bilateral osteoarthritis of knees 9. Coronary arteriosclerosis involving [place] coronary artery of [place] heart without angina pectoris 10. Benign prostatic [...] Depression Follows with Dr Locke in the [facility], takes propranolol 60mg daily, he would like to stay with her for now Patient prefers to follow up with off-site PCP regularly for titration of meds and management of chronic conditions. He will come here annually. Advised if anything changes and no longer following with off-site PCP, please call front office secretary to schedule sooner appt with [facility] PCP. The above plan and education was reviewed with the [place] and she verbalized understanding. 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 has no concerns about toxic exposure(s) while [...] of active outpatient prescriptions dispensed from this DC (local) and dispensed from another VA or [...] Nurse Practitioner Signed: 12/05/2023 15:13 SUNIL MONSIVAIS [facility] [place] [facility] Dec 05, 2023 01:58 PM PREVENTIVE MEDICINE [...] REGISTERED NURSE Signed: 12/05/2023 14:28 RAMU POPE [facility]
--- OUTSIDE RECORDS SUMMARY | 2024-06-13 14:28 | XMS_ITS ---
Author Name [facility] [place] Organization [place] Address [address] [place] [id number] Care Team Providers Care Jack Spinner Name Role Phone SUNIL MONSIVAIS Primary Care [...] Patient's Relationship to Policy Amaya [facility] (WNR) MEDICARE ADVANTAGE [facility] (WNR) Jun 11, 2023 [id number] SANDRA LIU PATIENT Selected Encounter This section includes the information on record at [place] for the Encounter. Date/Time Encounter Type Encounter Description Reason Pro vider Source Dec 05, 2023 03:07 PM Outpatient Encounter PRIMARY CARE/MEDICINE IHE Encounter Template Text not used by [place] Vital Signs: All taken on the encounter date This section contains inpatient and outpatient Vital Signs collected on the date of the Encounter. Date/Time Temperature Pulse Blood Pressure Respiratory Rate SP02 Pain Height Weight Body Mass Index Source Dec 05, 2023 02:24 PM 98.3 70 100/62 16 95 70 175 25 [facility] [place] [facility] Social History: Smoking Status (Most current) and Tobacco Use (All prior to encounter date) This section includes the most current, and the historical, smoking and tobacco- related health factors from the [place] facility where the Encounter took place. Current Smoking Status This section includes the most current smoking, or tobacco-related health factor, from the [place] facility where the Encounter took place. Date/Time Current Smoking Status Comment Facil ity November 06, 2023 10:34 AM VA-TOBACCO FORMER USER [facility] Tobacco Use History This section includes a history of the smoking, or tobacco-related health factors, that were collected on or before the date of the Encounter. The data comes from the [place] facility where the Encounter took place. Date/Time Smoking Status/Tobacco Use Comment F acility November 06, 2023 10:34 AM [place]-TOBACCO QUIT 15 YRS OR MORE [facility] Advance Directives: All historical and current Section Date Range: From patient's date of to the date document was created. This section includes ALL of a patient's completed or amended [place] Advance and Rescinded Directives. The entries below indicate that a directive exists for the patient, but an actual copy is not included with this document. The data comes from all [place] facilities. Date Advance Directives Provider Source Dec 05, 2023 ADVANCE DIRECTIVE DELIA DEL VALLE [facility] Encounter Notes: All associated encounter notes This section contains the clinical notes associated to the Encounter. Date/Time Encounter Note(s) Provider Source Dec 05, 2023 03:08 PM CLINICAL WARNING: LOCAL TITLE: COMMUNICATION AUTHORIZATION STANDARD TITLE: CLINICAL WARNING DATE OF NOTE: DEC 05, 2023@15:08 ENTRY DATE: DEC 05, 2023@15:08:33 AUTHOR: DELIA DEL VALLE EXP COSIGNER: URGENCY: STATUS: COMPLETED Family/Caregiver Name: Primary: Sunil Iyer Secondary: Tertiary: Authorized Clinic & Topics: All Clinic's & Topics: All Care/Coordination Primary Care: Mental Health: Specialty Care: [id number] Protected Info: [ ] Drug Abuse [ ] Alcohol Abuse [ ] HIV [ ] Sickle Cell Expiration: Date: [ ] At [X] Through [ ] At end of care // DELIA DEL VALLE Advanced Enrollment Advisor Signed: 12/05/2023 15:09 DELIA DEL VALLE [facility]
--- OUTSIDE RECORDS SUMMARY | 2024-06-13 14:28 | XMS_ITS ---
Author Name [facility] [place] Address [address] [place] [id number] Care Team Providers Care Sew On Operator Name Role Phone SUNIL MONSIVAIS Primary [...] [facility] (WNR) MEDICARE ADVANTAGE [facility] (WNR) Jun 11, 2023 [id number] SANDRA LIU PATIENT Selected Encounter This section includes the information on record at [place] for the Encounter. Date/Time Encounter Type Encounter Description Reason Pro vider Source Dec 05, 2023 02:22 PM Outpatient Encounter PRIMARY CARE/MEDICINE IHE Encounter Template Text not used by [place] Vital Signs: All taken on the encounter date This section contains inpatient and outpatient Vital Signs collected on the date of the Encounter. Date/Time Temperature Pulse Blood Pressure Respiratory Rate SP02 Pain Height Weight Body Mass Index Source Dec 05, 2023 02:24 PM 98.3 70 100/62 16 95 70 175 25 [facility] [place] [facility] Social History: Smoking Status (Most current) and Tobacco Use (All prior to encounter date) This section includes the most current, and the historical, smoking and tobacco- related health factors from the [place] facility where the Encounter took place. Current Smoking Status This section includes the most current smoking, or tobacco-related health factor, from the [place] facility where the Encounter took place. Date/Time Current Smoking Status Comment Carmen ity November 06, 2023 10:34 AM VA-TOBACCO FORMER USER [facility] Tobacco Use History This section includes a history of the smoking, or tobacco-related health factors, that were collected on or before the date of the Encounter. The data comes from the [place] facility where the Encounter took place. Date/Time Smoking Status/Tobacco Use Comment F acility November 06, 2023 10:34 AM [place]-TOBACCO QUIT 15 YRS OR MORE [facility] Advance Directives: All historical and current Section Date Range: From patient's date of to the date document was created. This section includes ALL of a patient's completed or amended [place] Advance and Rescinded Directives. The entries below indicate that a directive exists for the patient, but an actual copy is not included with this document. The data comes from all [place] facilities. Date Advance Directives Provider Source Dec 05, 2023 ADVANCE DIRECTIVE DELIA DEL VALLE [facility] Encounter Notes: All associated encounter notes [...] or Advance Directive/AOD Flowsheet is located in [place]. /malka/ DELIA DEL VALLE Advanced Oil Refinery Operator Signed: 12/05/2023 14:22 DELIA DEL VALLE [facility]
== END 2024-06-13 13:12 | disposition home or self-care (01) ==
LOC: HO.ACS 12:59
PROVIDERS: PCP Internal Medicine Medical Oncology; Visit Provider Internal Medicine
DX: Z79.01 Long term (current) use of anticoagulants (principal)

== ENCOUNTER → 2024-06-13 12:59 | Outpatient (BNVA) | payer MEDICARE, SELFPAY | PROVIDERS: PCP Internal Medicine Medical Oncology; Visit Provider Internal Medicine | DX: I48.20 Chronic atrial fibrillation, unspecified (principal); Z79.01 Long term (current) use of anticoagulants; Z51.81 Encounter for therapeutic drug level monitoring | CPT/HCPCS: 85610; 99211 ==

== ENCOUNTER 2024-07-21 12:20 | Outpatient (AMB) | payer MEDICARE, SELFPAY ==
[2024-07-21 12:26] LABS: Prothrombin Time Whole Bld POC 29.1 sec (11.1-13.5); ~PT, ~INR - Anti Coag Clinic 2.4 (0.9-1.1)
--- NOTE | 2024-07-21 12:29 | MHC.OFFVISCO ---
Intake Intake Visit Reasons: Anticoagulation Allergies indomethacin [From INDOCIN] Allergy (Intermediate, Verified 07/21/24 12:20) RASH oxycodone [OXYCODONE] Allergy (Intermediate, Verified 07/21/24 12:20) VOMITING/RASH Sulfa (Sulfonamide Antibiotics) [SULFA (SULFONAMIDE ANTIBIOTICS)] Allergy (Intermediate, Verified 07/21/24 12:20) BLISTERS, sore on the end of his penis acetaminophen [Percocet] Adverse Reaction (Unknown, Verified 07/21/24 12:20) vomiting Medication List - Last Reconciled 07/21/24 by Luci Connor, RN atorvastatin 1 tab PO DAILY cholecalciferol (vitamin D3) 25 mcg PO DAILY donepezil 5 mg PO DAILY levetiracetam 1,000 mg PO BID omeprazole 1 cap PO DAILY paroxetine HCl 40 mg PO DAILY paroxetine HCl 10 mg PO DAILY propranolol ER 1 cap PO DAILY pyridoxine (vitamin B6) 100 mg PO DAILY pyridoxine (vitamin B6) mg PO tamsulosin 0.4 mg PO DAILY warfarin 2.5 mg See Protocol PO 2XW Nursing Note ambulate to [facility], uses [facility] transportation. INR: 2.4 in therapeutic range Medications and supplements reviewed No changes in health, diet, medications, or supplements, Denies any signs and symptoms of bleeding or bruising or clotting. Bleeding, bruising, clotting discussed Nutritional guidance given Dose: 5MG X 1 DAY/ 2.5MG X 6 DAYS F/U INR: 1MONTH Patient verbalizes understanding of instructions given Anti-Coag Initial Assessment Social Hx Patient Tobacco Use Status: Former Tobacco user Tobacco use type: Cigarette Alcohol intake frequency: former alcohol drinker Cardiovascular Hx: HTN, Arrhythmias and Varicose Veins Musculoskeletal Hx: Arthritis GI Hx: Other (GERD) Neurological Hx: Epilepsy/Seizures Cancer HX: No Psych. Illness/Depression: Yes (DEPRESSION) Coding Level of Care Code Est Patient Level 1 Diagnoses Current use of anticoagulant therapy Z79.01 Results AMB INR Fingerstick AMB INR Fingerstick 2.4 Last Edit by Luci Connor RN on 07/21/24 12:27 MANUAL ENTRY Assessment & Plan Assessment & Plan (1) Current use of anticoagulant therapy: Code(s): Z79.01 - technician terminal and repeater (current) use of anticoagulants Category: Medical
== END 2024-07-21 12:32 | disposition home or self-care (01) ==
LOC: HO.ACS 12:20
PROVIDERS: PCP Internal Medicine Medical Oncology; Visit Provider Internal Medicine
DX: Z79.01 Long term (current) use of anticoagulants (principal)

== ENCOUNTER → 2024-07-21 12:20 | Outpatient (BNVA) | payer MEDICARE, SELFPAY | PROVIDERS: PCP Internal Medicine Medical Oncology; Visit Provider Internal Medicine | DX: I48.20 Chronic atrial fibrillation, unspecified (principal); Z79.01 Long term (current) use of anticoagulants; Z51.81 Encounter for therapeutic drug level monitoring | CPT/HCPCS: 85610; 99211 ==

== ENCOUNTER 2024-08-18 13:04 | Outpatient (AMB) | payer MEDICARE, SELFPAY ==
[2024-08-18 13:30] LABS: Prothrombin Time Whole Bld POC 27.9 sec (11.1-13.5); ~PT, ~INR - Anti Coag Clinic 2.3 (0.9-1.1)
--- NOTE | 2024-08-18 13:34 | MHC.OFFVISCO ---
Intake Intake Visit Reasons: Anticoagulation Allergies indomethacin [From INDOCIN] Allergy (Intermediate, Verified 08/18/24 13:25) RASH oxycodone [OXYCODONE] Allergy (Intermediate, Verified 08/18/24 13:25) VOMITING/RASH Sulfa (Sulfonamide Antibiotics) [SULFA (SULFONAMIDE ANTIBIOTICS)] Allergy (Intermediate, Verified 08/18/24 13:25) BLISTERS, sore on the end of his penis acetaminophen [Percocet] Adverse Reaction (Unknown, Verified 08/18/24 13:25) vomiting Medication List - Last Reconciled 08/18/24 by Mya Dillard, NELSON atorvastatin 1 tab PO DAILY cholecalciferol (vitamin D3) 25 mcg PO DAILY donepezil 5 mg PO DAILY levetiracetam 1,000 mg PO BID omeprazole 1 cap PO DAILY paroxetine HCl 40 mg PO DAILY paroxetine HCl 10 mg PO DAILY propranolol ER 1 cap PO DAILY pyridoxine (vitamin B6) 100 mg PO DAILY pyridoxine (vitamin B6) mg PO tamsulosin 0.4 mg PO DAILY warfarin 2.5 mg See Protocol PO 2XW Nursing Note INR: 2.3 in therapeutic range of 2-3 Medications and supplements reviewed No changes in health, diet, medications, or supplements, Denies any signs and symptoms of bleeding or bruising or clotting. Bleeding, bruising, clotting discussed Nutritional guidance given Dose: continue same dose of 2.5mg X 6 days and 5mg X 1 day () F/U INR: 4 weeks Patient verbalizes understanding of instructions given Anti-Coag Initial Assessment Social Hx Patient Tobacco Use Status: Former Tobacco user Tobacco use type: Cigarette Alcohol intake frequency: former alcohol drinker Cardiovascular Hx: HTN, Arrhythmias and Varicose Veins Musculoskeletal Hx: Arthritis GI Hx: Other (GERD) Neurological Hx: Epilepsy/Seizures Cancer HX: No Psych. 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
--- OUTSIDE RECORDS SUMMARY | 2024-08-18 14:41 | XMS_ITS | Continuity of Care Document ---
Author Name [facility] Organization [facility] Care Team Providers Care Emergency Medical Service Coordinator Name Role Phone [facility] Unavailable Unavailable Problems Combined list of problems [...] 05 Entered By: SOFIA BLISS Comment: involving [place] coronary artery of [place] heart without angina pectoris [facility] [...] will be referred to urology for evaluation. [facility] [place] [facility] Reactive depression (situational) Active Condition November 06, 2023 Entered By: SOFIA BLISS Comment: He feels that his depression is worse through the winter. We will help him get in touch with the mental health provider [facility] Seizure Active Condition [facility] [place] [facility] Solitary nodule of lung Active Condition [facility] [place] [facility] Diagnosis: ICD-10-CM Z46.0 Encounter for fit/adjst of spectacles and contact lenses Active Diagnosis [facility] [place] [facility] Diagnosis: ICD-10-CM H25.813 Combined forms of age-related cataract, bilateral [facility] [place] [facility] Diagnosis: ICD-10-CM K21.9 Gastro-esophageal reflux disease without esophagitis Active [facility] Medications Combined list of outpatient medications from Department of Defense and Veterans Affairs facilities.Medications provided include 1) outpatient medications from the last 15 months, and 2) patient-reported medications. Medication Details Route Status Patient Instructions Prescription Expires Prescription Number Last Dispense Date Ordering Provider Order Date Order Qty Source ATORVASTATI N CA 80MG TAB TAKE ONE-HALF TABLET BY MOUTH ONCE DAILY ORAL ACTIVE LIO, SUNIL STEF 2023 [facility] CHOLECALCIF SARAHY 50MCG (2,000UNIT) TAB TAKE ONE TABLET BY MOUTH ONCE DAILY ORAL ACTIVE LOI, SUNIL STEF 2023 [facility] FINASTERIDE 5MG TAB TAKE ONE TABLET BY MOUTH ONCE DAILY ORAL ACTIVE LOI, SUNIL STEF 2023 [facility] FUROSEMIDE 20MG TAB TAKE ONE TABLET BY MOUTH ONCE DAILY ORAL ACTIVE LOI, SUNIL STEF 2023 [facility] OMEPRAZOLE 20MG CAP,EC TAKE 1 CAPSULE BY MOUTH EVERY MORNING 30 MINUTES BEFORE BREAKFAS T ORAL ACTIVE LOI, SUNIL STEF 2023 [facility] [place] [facility] [facility] PAROXETINE HCL 30MG TAB TAKE ONE TABLET BY MOUTH ONCE DAILY ORAL ACTIVE LOI, SUNIL STEF 2023 [facility] PROPRANOLOL HCL 40MG TAB TAKE 1.5 TABLETS BY MOUTH ONCE DAILY ORAL ACTIVE LOI, SUNIL STEF 2023 [facility] TAMSULOSIN HCL 0.4MG CAP TAKE 1 CAPSULE BY MOUTH ONCE DAILY ORAL ACTIVE LOI, SUNIL STEF 2023 [facility] WARFARIN (NON-VA) TAB TAKE 2.5 BY MOUTH ONCE DAILY ORAL ACTIVE LOI, SUNIL HURDLAND 2023 [facility] [place] [facility] Allergies, Adverse Reactions, Alerts Combined list of allergies from Department of Defense and Veterans Affairs facilities. It does not include entries that were removed or entered in error. Substance Category Reaction Severity Reaction type Status Date Reported Comments Source INDOMETHACIN Propensity to adverse reactions to drug (finding) active 4 [facility] [place] OXYCODONE HCL 5MG TABLET Propensity to adverse reactions to drug (finding) active 4 [facility] SULFAMETHOXAZ OLE Propensity to adverse reactions to drug (finding) active 4 [facility] Immunizations Combined list of available immunizations from the Department of Defense and Veterans Affairs facilities. Immunization Series Date Given Administered By Site Reaction Lot Number CVX Code Drug Belt Line Feeder Status Comments Source INFLUENZA, UNSPECIFIED FORMULATION 2022 88 complet ed [facility] [place] TDAP [address] [place] PNEUMOCOCCAL POLYSACCHARID E PPV23 2017 33 complet ed [place] [facility] [place] [facility] PNEUMOCOCCAL CONJUGATE PCV 13 2015 133 complet ed [place] [facility] [place] [facility] Vital Signs Combined list of inpatient and outpatient Vital Signs from Department of Defense and Veterans Affairs, ranging from 12 months to all on record, depending upon the facility. Vital Sign Value Date Comments Source SYSTOLIC BLOOD PRESSURE 100 12/05/19 24 14:24:26 [facility] [place] [facility] DIASTOLIC BLOOD PRESSURE 62 024 14:24:26 [facility] [place] [facility] PULSE OXIMETRY 95 12/05/2023 14:24:26 [facility] [place] WEIGHT 175 12/05/2023 14:24:26 [facility] [place] [facility] BMI 25 kg/m2 12/05/2023 14:24:26 [facility] [place] HEIGHT 70 12/05/2023 14:24:26 [facility] [place] TEMPERATURE 98.3 12/05/2023 14:24:26 [facility] [place] [facility] PULSE 70 12/05/2023 14:24:26 [facility] [place] [facility] RESPIRATION 16 12/05/2023 14:24:26 [facility] [place] [facility] Encounters Combined list of: 1) Encounters from Department of Veterans Affairs facilities going backup to the last 18 months, not all VA inpatient encounters are included; 2) Encounters from the Department of Defense facilities going backup to 280 months. Location Location Details Encounter Type Encounter Number Reason For Visit Attending Provider ADM Date DC Date Status Disposition Source [facility] Encounter [id number] 11/01 [facility] [place] [place] [facility] Outpatient Encounter [id number] 11/05 [facility] [place] [place] [facility] OFFICE O/P EST MOD 30 MIN [id number] Diagnos is: ICD-10- CM K21.9 Gastro- esophag eal reflux disease without esophag itis Junie MONSIVAIS 12/04 [facility] [place] [facility] [place] [facility] Outpatient Encounter [id number] 12/04 [facility] [place] [id number] 12/04 [facility] [place] [place] [facility] [place] 1/ [id number] Diagnos is: ICD-10- CM H25.813 Combine d forms of age-rel ated catarac t, bilater al JIMI GALVAN 07/08 [place] [facility] [place] [facility] [place] [facility] FIT SPECTACLES BIFOCAL [id number] Diagnos is: ICD-10- CM Z46.0 Encount er for fit/adj st of spectac les and contact lenses JIMI GALVAN 07/11 [facility] [place] [facility] Social History Combined list of available smoking, tobacco, and other social history from Department of Defense and Veterans Affairs facilities. Social History Type Response Date Comment Sourc e Tobacco smoking status NHIS VA-TOBACCO FORMER USER 11/06/2023 [facility] [place] [facility] History of tobacco use VA-TOBACCO QUIT 15 YRS OR MORE 11/06/2023 [facility] [place] [facility] Plan of Care List of future care activities from Department of Veterans Affairs facilities. Additional future care activities may be listed in the Assessment and Plan section. Date/Time Care Activity Care Activity Detail Facili ty 10/10/2024 AMBULATORY - MEDICINE AMBULATORY - MEDICI NE [facility] [place] [facility] 10/10/2024 AMBULAT[facility] [place] [facility] 12/10/2024 AMBULAT[facility] - MEDIC[facility] Advance Directives List of completed, amended, or rescinded Advance Directives on record at Department of Veterans Affairs facilities. An actual copy of the Directive is not included. Date Advance Directive Provider Source 12/05/2023 ADVANCE DIRECTIVE DELIA DEL VALLE [facility]
--- OUTSIDE RECORDS SUMMARY | 2024-08-18 14:41 | XMS_ITS ---
Author Name [facility] [place] [facility] [place] Address [address] [place] [address] Care Team Providers Care Conference Reservationist Name Role Phone SUNIL MONSIVAIS Primary Care [...] Amaya's Name Patient's Relationship to Policy Amaya [facility] (WNR) MEDICARE ADVANTAGE [facility] ([facility]) Jun 11, 2023 [id number] SANDRA LIU PATIENT Selected Encounter This section includes the information on record at [place] for the Encounter. Date/Time Encounter Type Encounter Description Reason Provider Source Jul 08, 2024 03:30 PM COMPRE OPH EXAM NEW PT 1/> OPTOMETRY ICD-10-CM H25.813 Combined forms of age-related cataract, bilateral GALVAN,MINH J IHE Encounter Template Text not used by VA Assessments - Encounter Diagnoses This section includes the primary and secondary diagnoses documented for the Encounter. Date/Time Primary/Secondary Diagnosis Diagnosis Name Provider Source Jul 08, 2024 03:21 PM PRIMARY Combined forms of age-related cataract, bilateral GALVAN,MINH J [place] [facility] [place] [facility] Jul 08, 2024 03:21 PM SECONDARY Open angle with borderline findings, high risk, bilateral MINH GALVAN [facility] Jul 08, 2024 03:21 PM SECONDARY Presbyopia MINH GALVAN [facility] Jul 08, 2024 03:21 PM SECONDARY Unspecified retinal break, left eye MINH GALVAN [facility] Plan of Treatment: Future Appointments (+ 6 months) and Future Tests (+/- 45 days) The Plan of Treatment section includes future care activities for the patient [facility] [place] [facility] This section includes future appointments and future orders which are active, pending or scheduled. Future Appointments This section includes appointments that were scheduled to occur 6 months from the date of the Encounter, up to a maximum of 20 appointments. The data comes from all [place] treatment facilities. Appointment Date/Time Appointment Type Appointme nt Facility Name October 10, 2024 12:30 PM AMBULATORY - MEDICINE [facility] October 10, 2024 01:00 PM AMBULATORY MEDICINE [facility] Dec 10, 2024 01:30 PM AMBULATORY - MEDICINE [facility] Social History: Smoking Status (Most current) and Tobacco Use (All prior to encounter date) This section includes the most current, and the historical, smoking and tobacco- related health factors from the [place] facility where the Encounter took place. Current Smoking Status This section includes the most current smoking, or tobacco-related health factor, from the [place] facility where the Encounter took place. Date/Time Current Smoking Status Comment Facil ity November 06, 2023 10:34 AM VA-TOBACCO FORMER USER [facility] Tobacco Use History This section includes a history of the smoking, or tobacco-related health factors, that were collected on or before the date of the Encounter. The data comes from the [place] facility where the Encounter took place. Date/Time Smoking Status/Tobacco Use Comment F acility November 06, 2023 10:34 AM [place] 15 YRS OR MORE [facility] Advance Directives: All historical and current Section Date Range: From patient's date of to the date document was created. This section includes ALL of a patient's completed or amended VA Advance and Rescinded Directives. The entries below indicate that a directive exists for the patient, but an actual copy is not included with this document. The data comes from all [place] facilities. Date Advance Directives Provider Source Dec 05, 2023 ADVANCE DIRECTIVE DELIA DEL VALLE [place] [facility] [place] [facility] Encounter Notes: All associated encounter notes This section contains the clinical notes associated to the Encounter. Date/Time Encounter Note(s) Provider Source Jul 08, 2024 01:50 PM OPTOMETRY NOTE: LOCAL TITLE: OPTOMETRY NOTE STANDARD TITLE: OPTOMETRY NOTE DATE OF NOTE: JUL 08, 2024@13:50 ENTRY DATE: JUL 08, 2024@13:50:25 AUTHOR: MINH GALVAN EXP COSIGNER: URGENCY: STATUS: COMPLETED Eye Examination for: SANDRA LIU, 79 year old WHITE MALE JESSEE: Summer 2023 Dr. Francisco Reason for Visit/CC: Patient here for CEE. reports his eye have gotten worse. Reports most recent glasses were from summer 2023 and feels vision changed since then. [place] is aware he has cataracts and curious if it may be time for cataract surgery. Denies all other changes or complaints. Current Ocular Meds: none OHx/HPI: (-) Pain: (-) BLACK: (-) Diplopia: (+) Flashes: occaisional and infrequent either eye, no recent occurance (+) Floaters: several, longstanding and stable (-) Amaurosis Fugax/Tia's: (-) Eye Injury: (-) Eye Surgery: (-) TBI FOHx: (-) Glaucoma (-) ARMD (-) Blindness MHx: Code Description Z87.891 Ex-smoker ([facility] [id number]) E66.3 Overweight ([facility] [id number]) K21.9 Gastroesophageal reflux disease without esophagitis ([facility] [id number]) Z92.29 H/O: anticoagulant therapy ([facility] [id number]) R91.1 Solitary nodule of lung ([facility] [id number]) E78.5 Hyperlipidemia ([facility] [id number]) M17.0 Bilateral osteoarthritis of knees ([facility] [id number]) I25.10 Coronary arteriosclerosis ([facility] 44948301) N40.0 Benign prostatic hyperplasia ([facility] [id number]) R97.20 Prostate specific antigen above reference range ([facility] [id number]) F32.A Reactive depression (situational) ([facility] 58354438) D12.6 Adenomatous polyp of colon ([facility] [id number]) R69. Closed fracture of multiple ribs ([facility] 25387960) I34.0 Mitral valve regurgitation ([facility] [id number]) G56.03 Bilateral carpal tunnel syndrome ([facility] [id number]) I48.20 Chronic atrial fibrillation ([facility] [id number]) R56.9 Seizure ([facility] 50648947) F41.9 Anxiety ([facility] [id number]) SYSTEMIC MEDICATIONS/OCULAR MEDICATIONS: Active Outpatient Medications (including Supplies): Active Non-VA Medications Status 1) Non-VA ATORVASTATIN CALCIUM 80MG TAB 40MG BY MOUTH ONCE ACTIVE DAILY Indication: FOR HIGH CHOLESTEROL 2) Non-VA CHOLECALCIF 50MCG (D3-2,000UNIT) TAB 50MCG BY MOUTH ACTIVE ONCE DAILY Indication: FOR VITAMIN D DEFICIENCY 3) Non-VA FINASTERIDE 5MG TAB 5MG BY MOUTH ONCE DAILY ACTIVE Indication: FOR ENLARGED PROSTATE 4) Non-VA FUROSEMIDE 20MG TAB 20MG BY MOUTH ONCE DAILY ACTIVE Indication: FOR HIGH BLOOD PRESSURE 5) Non-VA OMEPRAZOLE 20MG EC CAP 20MG BY MOUTH EVERY MORNING 30 ACTIVE MINUTES BEFORE BREAKFAST Indication: FOR GASTROESOPHAGEAL REFLUX DISEASE 6) Non-VA PAROXETINE HCL 30MG TAB 30MG BY MOUTH ONCE DAILY ACTIVE Indication: FOR MAJOR DEPRESSIVE DISORDER 7) Non-VA PROPRANOLOL HCL 40MG TAB 60MG BY MOUTH ONCE DAILY ACTIVE Indication: FOR HIGH BLOOD PRESSURE 8) Non-VA TAMSULOSIN HCL 0.4MG CAP 0.4MG BY MOUTH ONCE DAILY ACTIVE Indication: FOR ENLARGED PROSTATE 9) Non-VA WARFARIN (NON-VA) TAB 2.5 BY MOUTH ONCE DAILY ACTIVE Indication: UNKNOWN ALLERGIES: SULFAMETHOXAZOLE, OXYCODONE HCL 5MG TABLET, INDOMETHACIN VITALS (most recent, as listed in the electronic record): B/P: 100/62 (12/05/2023 14:24) Pulse: 70 (12/05/2023 14:24) Temperature: 98.3 F [36.8 C] (12/05/2023 14:24) Weight: 175 lb [79.38 kg] (12/05/2023 14:24) Height: 70 in [177.8 cm] (12/05/2023 14:24) BMI: BMI: 25.2 PERTINENT LABS: HEMOGLOBIN A1C TREND No data available (-) Smoker: quit ~1989 Current Rx with last BCVA: OD: +0.50-1.02v151 OS: +1.00-1.82d098 Add: +3.00 DVA ( )sc ( x )cc - [x]phoropter []specs []CL OD: 20/40-1 OS: 20/20-2 Entrance Testing: Pupil: PERRL (-)APD EOM: SAFE OU, (-)Pain/Diplopia CVF: FTFC OU Subjective Refraction: OD: +1.50-2.07p403 20/25+2 OS: +0.75-0.95k909 20/20 Add: +2.75 *Trial framed and very happy with vision compared to current specs SLE: Lids/Lashes: dermatochalasis OU Conjunctiva: white and quiet bulbar conj OU quiet palpebral conj OU Corneas: clear centrally OU, arcus OU Iris: flat and clear OU, (-)TID OU AC: D & Q OU Angles: 3x3 OU TAP @ 2:11pm OD 11 mmHg OS 11 mmHg [x]Fletcher []iCare []GAT Dilating Drops: 1GTT 1 % Tropicamide OU & 1GTT 2.5% Phenylephrine OU (Pt. ed. on side effects, dilation warning given and verbal consent obtained) Patient advised not to drive if they feel they have any symptoms which could affect their ability to drive safely. Patient advised not to engage in any activities which could put themselves or others at risk if they feel they have any symptoms which could affect their ability to perform those activities safely. 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 Combined Cataracts OU - not visually significant at present -Pt ed re today's findings and the importance of UV protection -Pt ed cataracts may cause reduction of BCVA and symptoms of glare -RTC sooner if vision declines or interferes with ADLs - repeated back the plan and education. -Monitor 2. 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 Moderate cupping with large asymmetry OS>OD. No evidence of pigment dispersion or pseudoexfoliation OU. No known family history of glaucoma. No change in ONH appearance. -Pt ed re today's findings -Pt ed re glaucoma as well as the natural history of this diagnosis including prognosis. -Stress importance of continued follow-up appointments -[place] repeated back the plan and education. -RTC 3 months for visual imaging and IOP check 3. Peripheral retinal hole OS - well-pigmented without indication for treatment -Pt ed re today's findings -[place] repeated back the plan and education. -Monitor 4. Refractive Error and Presbyopia OU -Rx updated and ordered per pt request bifocals -Monitor RTC 3 mos or earlier PRN (x)Appointment with coordinated visual imaging (x) HVF 24-2 (x) RNFL OCT (x) Pachymetry Glasses adjusted/repaired in office: () Yes (x) No If yes, how many pairs: Education: Glaucoma: Patient was educated regarding glaucoma/glaucoma suspect as well as the natural history of this diagnosis including prognosis. Stress importance of compliance and persistency with glaucoma medication when prescribed, timely follow up as well as the role of ancillary testing. Exclusion criteria for ancillary testing include significantly reduced acuity, mental status changes affecting the patient's ability to attend to the test or other physical limitations that would prohibit the patient's ability to participate in testing. EYE: Visual Function Reminder: Normal Vision: 20/25 or better: Unspecified disorder of refraction or accommodation (367.9). Medication Reconciliation: Outpatient: Has the patient been taking medications as documented in the EMLR? YES: The patient has been taking medications as documented in the EMLR. Essential Medication List for Review used to complete this medication reconciliation. INCLUDED IN THIS LIST: Alphabetical list of active outpatient prescriptions dispensed from this [facility] (local) and dispensed from another [place] or [facility] facility (remote) as well as inpatient orders [...] whether with a VA or non-VA provider. Medication List: JLV Link Data on this list may not be complete. Please check JLV. Allergies/ADRs (Tool #5) FACILITY ALLERGY/ADR -------- No Remote Allergy/ADR Data available for this patient [facility] OXYCODONE HCL 5MG TABLET [facility] SULFAMETHOXAZOLE Med. Reconciliation (Tool #1) INCLUDED IN THIS LIST: Alphabetical list of active outpatient prescriptions dispensed from this VA (local) and dispensed from another [place] or [facility] facility (remote) as well as inpatient orders (local pending and active), local clinic medications, locally documented non-VA medications, and local prescriptions that have or been discontinued in the past 90 days. Non-VA Meds Last Documented On: Dec 05, 2023 NOTE The display of VA prescriptions dispensed from another [place] or [facility] facility (remote) is limited to active outpatient prescription entries matched to National Drug File at the originating site and may not include some items such as investigational drugs, compounds, etc. NOT INCLUDED IN THIS LIST: Medications self-entered by the patient into personal health records (i.e. [employer]) are NOT included in this list. Non-VA medications documented outside this [place], remote inpatient orders (regardless of status) and remote clinic medications are NOT included in this list. The patient and provider must always discuss medications the patient is taking, regardless of where the medication was dispensed or obtained. Non-VA ATORVASTATIN CALCIUM 80MG TAB TAKE ONE-HALF TABLET BY MOUTH ONCE DAILY Medication prescribed by Non-VA provider. Indication: FOR HIGH CHOLESTEROL Non-VA CHOLECALCIF 50MCG (D3-2,000UNIT) TAB TAKE ONE TABLET BY MOUTH ONCE DAILY Medication prescribed by Non-VA provider. Indication: FOR VITAMIN D DEFICIENCY Non-VA FINASTERIDE 5MG TAB TAKE ONE TABLET BY MOUTH ONCE DAILY Medication prescribed by Non-VA provider. Indication: FOR ENLARGED PROSTATE Non-VA FUROSEMIDE 20MG TAB TAKE ONE TABLET BY MOUTH ONCE DAILY Medication prescribed by Non-VA provider. Indication: FOR HIGH BLOOD PRESSURE Non-VA OMEPRAZOLE 20MG EC CAP TAKE 1 CAPSULE BY MOUTH EVERY MORNING 30 MINUTES BEFORE BREAKFAST Medication prescribed by Non-VA provider. Indication: FOR GASTROESOPHAGEAL REFLUX DISEASE Non-VA PAROXETINE HCL 30MG TAB TAKE ONE TABLET BY MOUTH ONCE DAILY Medication prescribed by Non-VA provider. Indication: FOR MAJOR DEPRESSIVE DISORDER Non-VA PROPRANOLOL HCL 40MG TAB TAKE 1.5 TABLETS BY MOUTH ONCE DAILY Medication prescribed by Non-VA provider. Indication: FOR HIGH BLOOD PRESSURE Non-VA TAMSULOSIN HCL 0.4MG CAP TAKE 1 CAPSULE BY MOUTH ONCE DAILY Medication prescribed by Non-VA provider. Indication: FOR ENLARGED PROSTATE Non-VA WARFARIN (NON-VA) TAB TAKE 2.5 BY MOUTH ONCE DAILY Medication prescribed by Non-VA provider. Indication: UNKNOWN SUPPLIES PHARMACY TERMS AND POSSIBLE PATIENT ACTIONS [place]PT = [place] inpatient order IV = [place] intravenous medication OUTPT = [place] outpatient prescription PHARMACY POSSIBLE PATIENT TERMS EXPLANATION ACTIONS -------- ---- ACTIVE A prescription that can be If you have refills, filled at the local [place] pharmacy. you may request a refill of this prescription from your [place] pharmacy. CLINIC A medication you received during If you have questions a visit to a [place] clinic or about this medication emergency department. contact your [place] healthcare team. DISCONTINUED A prescription your provider has Contact your VA stopped. It is no longer healthcare team if you available to be sent to you or need more of this picked up at the [place] pharmacy medication. window. A prescription which is too old Contact your VA to fill. This does not refer to healthcare team if you the expiration date of the need more of this medication in the container. medication. NON-VA A medication that came from If this medication someplace other than a VA information is pharmacy. This may be a incorrect or out of prescription from either the VA date, please tell your or non VA providers that was VA healthcare team. filled outside the VA. Or, it may be an dcbx-ffs-fajkctz (OTC), herbal, dietary supplements or sample medication. ON HOLD An active prescription that will Contact your VA not be filled until pharmacy pharmacy when you need resolves the issue. more of this medication. PARKED An active prescription that will Contact your VA not be filled until the patient pharmacy when you need requests it. this medication. PENDING This prescription order has been If you have been sent to the pharmacy for review instructed to start and is not ready yet. this medication now, contact your VA pharmacy. SUSPENDED An active prescription that is Contact your VA not scheduled to be filled yet. pharmacy if you need You should receive it before this medication now. you run out. (x) Printed Medication Reconciliation List Offered and Declined by [place] () Medication Reconciliation List Printed for [place] at Exam () Optometry HT Please Print and Mail Copy of Medication Reconciliation List () AMSA Please Print and Mail Copy of Medication Reconciliation List /es/ MINH GALVAN OD EMAIL MARKETER Signed: 07/08/2024 15:22 MINH GALVAN [place] [facility]
--- OUTSIDE RECORDS SUMMARY | 2024-08-18 14:41 | XMS_ITS ---
Author Organization Chris Walker III, MD Address [address] [place] [address] [place] [address] Care Team Providers Care Broker Name Role Phone Chris Walker Primary Care Provider REASON FOR VISIT Refills Social History Sex Assigned At : Social History Observation Description Sex Assigned At Male Encounters Encounter Location Date Provider Diagnosis Chris Walker III, MD [address] [place] [address] [place] [address] 08/06/2024 Chris Walker Plan Of Treatment Next Appt Details Provider Name:Chris Walker, 10/01/2024 02:00:00 PM, [address] [place] [address] [place], [address], Provider Name:Chris Walker, 12/03/2024 04:00:00 PM, [address] [place] [address] [place], [address], Progress Notes * Reji LIU JrDOB:10/1944 (79 yo M)Acc No.[id number]:08/06/2024 Patient:?Reji LIU Jr :1945???Age:79 Y???Sex:Male Address:[address], [place], [address] * true * Date:? Generated for Trevor pool/Tawny/Edvinitting on:?08/18/2024 02:41 PM EDT
--- OUTSIDE RECORDS SUMMARY | 2024-08-18 14:41 | XMS_ITS ---
Author Organization Chris Walker III, MD Address [address] [place] [address] [place] [address] Care Team Providers Care Art Museum Docent Name Role Phone Chris Walker Primary Care Provider REASON FOR VISIT [employer] Forms Social History Sex Assigned At : Social History Observation Description Sex Assigned At Male Encounters Encounter Location Date Provider Diagnosis Chris Walker III, MD [address] [place] [address] [place] [address] 07/03/2024 Chris Walker Plan Of Treatment Next Appt Details Provider Name:Chris Walker, 10/01/2024 02:00:00 PM, [address] [place] [address] [place], [address], Provider Name:Chris Walker, 12/03/2024 04:00:00 PM, [address] [place] [address] [place], [address], Progress Notes * Reji LIU JrDOB:10/1944 (79 yo M)Acc No.[id number]:07/03/2024 Patient:?Reji LIU Jr :1945???Age:79 Y???Sex:Male Address:[address], [place], [address] * true * Date:? Generated for Trevor pool/Tawny/Edvinitting on:?08/18/2024 02:41 PM EDT
--- OUTSIDE RECORDS SUMMARY | 2024-08-18 14:41 | XMS_ITS ---
Author Organization Chris Walker III, MD Address [address] [place] [address] [address] [place] [address] Care Team Providers [employer] In[employer] Name Role Phone Chris Walkre Primary Care Provider [phone] Allergies Allergen (clinical drug ingredient) Drug/Non Drug Allergy documented on EMR Reaction Allergy Type Onset Date Status Sulfamethoxazole-TMP DS Unknown Drug Allergy Active oxycodone Oxycodone HCl Unknown Drug Allergy Act hardeep indomethacin Indomethacin Unknown Drug Allergy A ctive indomethacin Indocin Unknown Drug Allergy Acti ve REASON FOR VISIT Right side lower back pain, Chronic fatigue, 7 pound weight gain, Hypertension, Depression, Benign prostatic hypertrophy, Coronary artery disease, Atrial fibrillation, Anticoagulated Medications Medication SIG (Take, Route, Frequency, Duration) Notes Start Date End Date Status Atorvastatin Calcium 40 MG TAKE 1 TABLET BY MOUTH EVERY DAY Active Propranolol HCl ER 60 MG TAKE 1 CAPSULE BY MOUTH EVERY DAY FOR 90 DAYS Active Finasteride 5 MG TAKE 1 TABLET BY CANDI TH EVERY DAY Oral Active Furosemide 20 MG 1 tablet Orally Once a day 06/06/2022 Active levETIRAcetam 1000 MG s Orally every 12 hrs 2023 Active Omeprazole 20 MG TAKE 1 CAPSULE BY MO UTH EVERY DAY Active Vitamin D3 25 MCG (1000 UT) TAKE 1 TABLE T BY MOUTH EVERY DAY Active Warfarin Sodium (2.5 MG) 2.5 MG 2 tablets on Tuesdays, 1 tablet the rest of the other days Active Vitamin B-6 100 MG TAKE 1 TABLET BY CANDI TH EVERY DAY Oral Active Tamsulosin HCl 0.4 MG TAKE 1 CAPSULE BY MOUTH EVERYDAY AT BEDTIME Oral Active Social History Tobacco Use: Social History [...] Problem Status W/U Status Risk Notes Problem Vitamin D deficiency (13785916) Vitamin D deficiency, unspecified (E55.9) Active confirmed He was continued on vitamin D supplements. Vital Signs Temperature 98.2 degrees Fahrenheit 07/30/19 25 Blood pressure systolic 128 mm Hg 07/30/19 25 Blood pressure diastolic 83 mm Hg 025 Heart Rate 75 /min 07/30/2024 Height 67 in 07/30/2024 Weight 185 lbs 07/30/2024 BMI 28.97 kg/m2 07/30/2024 Encounters Encounter Location Date Provider Diagnosis Chris Walker III, MD [address] [place] [address] [place] [address] 07/30/2024 Chris Walker Hypertension I10 ; Benign prostatic hyperplasia with lower urinary tract symptoms N40.1 ; Hyperlipemia E78.5 ; Vitamin D deficiency, unspecified E55.9 ; Reactive depression F32.9 ; Overweight (BMI 25.0-29.9) E66.3 ; Primary osteoarthritis of both knees M17.0 ; Coronary artery disease involving [place] coronary artery of [place] heart without angina pectoris I25.10 ; Adenomatous polyp of colon, unspecified part of colon D12.6 ; Nonrheumatic mitral valve regurgitation I34.0 and Pulmonary nodule R91.1 Assessments Encounter Date Diagnosis (ICD Code) Assessment Notes Treat ment Notes Treatment Clinical Notes 07/30/2024 Hypertension (ICD-10 - I10) His blood pressure today is normal. No change in his regimen was made. 07/30/2024 Benign prostatic hyperplasia with lower urinary tract symptoms (ICD-10 - N40.1) He rises from sleep once or twice a night to urinate. We have discussed lifestyle modifications that could reduce nocturia. He remains under the care of urology for his kidney stones. 07/30/2024 Hyperlipemia (ICD-10 - E78.5) No current values are available. A fasting lipid profile has been ordered prior to his next visit. 07/30/2024 Vitamin D deficiency, unspecified (ICD-10 - E55.9) He was continued on vitamin D supplements. 07/30/2024 Reactive depression (ICD-10 - F32.9) He feels that his depression is worse through the winter. We will help him get in touch with the mental health provider 07/30/2024 Overweight (BMI 25.0-29.9) (ICD-10 - E66.3) His body mass index is 28.9. He has gained 7 pounds.We discussed weight reduction strategies. We discussed diet and nutrition. 07/30/2024 Primary osteoarthritis of both knees (ICD-10 - M17.0) He has had one knee replacement which is functioning well. He has mild pain in the opposite knee. He will continue on his current regimen. The pain in his knees remains the same but he can conduct all of the activities of daily life. He will see the orthopedist regularly. 07/30/2024 Coronary artery disease involving [place] coronary artery of [place] heart without angina pectoris (ICD-10 - I25.10) He denies any recent chest pain. He was evaluated for coronary syndrome, May 25, 2022 in the emergency room with negative results. 07/30/2024 Adenomatous polyp of colon, unspecified part of colon (ICD-10 - D12.6) He will continue to have colonoscopies as needed. 07/30/2024 Nonrheumatic mitral valve regurgitation (ICD-10 - I34.0) The mitral regurgitation has been documented on an echocardiogram and is mild and asymptomatic. He is free of dyspnea with exertion. A murmur was not heard on auscultation today. 07/30/2024 Pulmonary nodule (ICD-10 - R91.1) This nodule was 8 mm in the right lower lobe and was PET negative in 2022. He is due for another CT scan of the chest to follow up. Plan Of Treatment Medication Medication Name Sig Start Date Stop Date Notes Atorvastatin Calcium 40 MG TAKE 1 TABLET BY MOUTH EVERY DAY Propranolol HCl ER 60 MG TAKE 1 CAPSULE BY MOUTH EVERY DAY FOR 90 DAYS Finasteride 5 MG TAKE 1 TABLET BY CANDI TH EVERY DAY Oral Furosemide 20 MG 1 tablet Orally Once a day 06/06/2022 levETIRAcetam 1000 MG s Orally every 12 hrs 04/30/2024 Omeprazole 20 MG TAKE 1 CAPSULE BY MO UTH EVERY DAY Vitamin D3 25 MCG (1000 UT) TAKE 1 TABLE T BY MOUTH EVERY DAY Warfarin Sodium (2.5 MG) 2.5 MG 2 tablet s on Tuesdays, 1 tablet the rest of the other days Vitamin B-6 100 MG TAKE 1 TABLET BY CANDI TH EVERY DAY Oral Tamsulosin HCl 0.4 MG TAKE 1 CAPSULE BY MOUTH EVERYDAY AT BEDTIME Oral Pending Test Test Name Order Date PROFILE, FASTING (COMPREHENSIVE METABOLI C) 07/30/2024 PSA, TOTAL 07/30/2024 CBC WITH AUTO DIFF 07/30/2024 Lipid Panel 07/30/2024 Vitamin D 25-OH Total 07/30/2024 XR lumbar spine 2-3V 07/30/2024 Next Appt Details Follow Up: 2 Months, In two months, Reason: OV, Routine follow-up Provider Name:Chris Wlaker, 10/01/2024 02:00:00 PM, [address] [place] [address] [address], [place], [id number], Provider Name:Chris Walker, 12/03/2024 04:00:00 PM, [address] [place] [address] [address], [place], [id number], Progress Notes * Reji LIU JrDOB:10/1944 (79 yo M)Acc No.[id number]:07/30/2024 Progress Notes Patient:?Reji LIU Jr Provider:?Chris Walker MD :1945???Age:79 Y???Sex:Male Sourav e:07/30/2024 Address:[address], [address], [id number] Subjective: * Chief Complaints: * ???Right side lower back joe nChronic fatigue7 pound weight gainHypertensionDepressionBenign prostatic hypertrophyCoronary artery diseaseAtrial fibrillationAnticoagulated * HPI: ???COVID-19 Screening:?Questions?Have you had any new onset fever, chills, cough, congestion, sore throat, shortness of breath, muscle aches??No ???:? The patient, a 79-year-old male, presented with a history of weight gain, back pain, and fatigue. He reported that his back pain is most severe when he gets out of bed and is located on the right side. The pain seems to be positional, as it improves when he is up and walking around. He also reported feeling tired all the time and lacking motivation to exercise. He has been taking antidepressants. He has a history of atrial fibrillation (Afib) and is on warfarin, which he has been taking as prescribed. He also has a history of seizures, mitral valve regurgitation, and coronary artery disease. He has been diagnosed with emphysema but has quit smoking for over 20 years. 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 * ROS:?General/Constitutional:?pain?only normal aches and pains.?Chills?denies.?Fatigue?admits.?Fever?denies.?ENT:?Decreased hearing?denies.?Respiratory:?Cough?denies.?Cardiovascular:?Chest pain with exertion?denies.?Dyspnea on exertion?denies.?Shortness of breath?denies.?Gastrointestinal:?Constipation?denies.?Decreased appetite?denies.?Diarrhea?denies.?Heartburn?denies.?Nausea?denies.?Rectal bleeding?denies.?Vomiting?denies.?Hematology:?bruising?denies.?petechiae?denies.?Swollen glands?none have been noted.?Genitourinary:?Frequent urination?denies.?Musculoskeletal:?Muscle aches?denies.?Painful joints?denies.?Sciatica?denies.?Weakness?denies.?Skin:?Itching?denies.?Rash?denies.?Skin lesion(s)?denies.?Neurologic:?Difficulty speaking?denies.?Dizziness?denies.?Headache?denies.?Low back pain?denies.?Psychiatric:?Depressed mood?denies.? * Medical History:? * Surgical History:?laser pros tatectomy Dr. To 2018history of suprapubic catheter insertion right total knee replacement colonoscopy tubular adenoma Dr. Hines 1989colonoscopy [facility] 2019appendectomy Past surgery on right knee No history * Hospitalization/Major Diagno stic Procedure:?Altered mental state, [...] 10 years ?Additional Findings: Tobacco Non-User?Ex-cigarette smoker ???Drugs/Alcohol:?Drugs?Have you used drugs other than those for medical reasons in the past 12 months??No ?Alcohol Screen?Did you have a drink containing alcohol in the past year??No ?Points?0 ?Interpretation?Negative ???He lives in [facility]. He has been to Estela since 1970. They have no children. 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 He was born in [facility]. Smoking: Quit over 20 years ago, Work: Worked in a paper [employer] and at [employer] * Medications:?TakingAtorvasta tin Calcium 40 MG Tablet TAKE 1 TABLET BY MOUTH EVERY DAY Propranolol HCl ER 60 MG Capsule Extended Release 24 Hour TAKE 1 CAPSULE BY MOUTH EVERY DAY FOR 90 DAYS Finasteride 5 MG Tablet TAKE 1 TABLET BY MOUTH EVERY DAY Oral Furosemide 20 MG Tablet 1 tablet Orally Once a day Vitamin B-6 100 MG Tablet TAKE 1 TABLET BY MOUTH EVERY DAY Oral Tamsulosin HCl 0.4 MG Capsule TAKE 1 CAPSULE BY MOUTH EVERYDAY AT BEDTIME Oral Warfarin Sodium (2.5 MG) 2.5 MG Tablet 2 tablets on Tuesdays, 1 tablet the rest of the other days levETIRAcetam 1000 MG Tablet s Orally every 12 hrs Omeprazole 20 MG Capsule Delayed Release TAKE 1 CAPSULE BY MOUTH EVERY DAY Vitamin D3 25 MCG (1000 UT) Tablet TAKE 1 TABLET BY MOUTH EVERY DAY Taking Atorvastatin Calcium 40 MG Tablet TAKE 1 TABLET BY MOUTH EVERY DAY Taking Propranolol HCl ER 60 MG Capsule Extended Release 24 Hour TAKE 1 CAPSULE BY MOUTH EVERY DAY FOR 90 DAYS Taking Finasteride 5 MG Tablet TAKE 1 TABLET BY MOUTH EVERY DAY Oral Taking Furosemide 20 MG Tablet 1 tablet Orally Once a day Taking Vitamin B-6 100 MG Tablet TAKE 1 TABLET BY MOUTH EVERY DAY Oral Taking Tamsulosin HCl 0.4 MG Capsule TAKE 1 CAPSULE BY MOUTH EVERYDAY AT BEDTIME Oral Taking Warfarin Sodium (2.5 MG) 2.5 MG Tablet 2 tablets on Tuesdays, 1 tablet the rest of the other days Taking levETIRAcetam 1000 MG Tablet s Orally every 12 hrs Taking Omeprazole 20 MG Capsule Delayed Release TAKE 1 CAPSULE BY MOUTH EVERY DAY Taking Vitamin D3 25 MCG (1000 UT) Tablet TAKE 1 TABLET BY MOUTH EVERY DAY DiscontinuedLORazepam 0.5 MG Tablet TAKE 1 TABLET BY MOUTH TWICE A DAY NEEDED Oral levETIRAcetam 1000 MG Tablet TAKE 1 TABLET BY MOUTH EVERY 12 HOURS Oral Warfarin Sodium 2.5 MG Tablet TAKE 1 TABLET BY MOUTH EVERY DAY Medication List reviewed and reconciled with the patientDiscontinued LORazepam 0.5 MG Tablet TAKE 1 TABLET BY MOUTH TWICE A DAY NEEDED Oral Discontinued levETIRAcetam 1000 MG Tablet TAKE 1 TABLET BY MOUTH EVERY 12 HOURS Oral Discontinued Warfarin Sodium 2.5 MG Tablet TAKE 1 TABLET BY MOUTH EVERY DAY Medication List reviewed and reconciled with the patient * Allergies:?Sulfamethoxazole- TMP DSOxycodone HClIndomethacinIndocinno[Allergies Verified] Objective: * Vitals:?Ht: 67, Wt:185, BMI: 28.97, BP:128/83, HR:75, Temp:98.2, Ht-cm: 170.18, Wt-k.91. * ???Past Orders: Lab:Prothrombin Time Whole B ld POC * Collection Date 07/21/2024 06/13/2024 05/16/2024 Collection Time 12:24 PM 01:04 PM 01:14 PM Order Date 07/21/2024 06/13/2024 05/16/2024 Prothrombin Time Whole Bld POC 29.1?H (Ref Range: 11.1-13.5 sec) 28.0?H (Ref Range: 11.1-13.5 sec) 28.3?H (Ref Range: 11.1-13.5 sec) * Lab:INR WHOLE BLOOD POC * Collection Date 07/21/2024 06/13/2024 05/16/2024 Collection Time 12:24 PM 01:04 PM 01:14 PM Order Date 07/21/2024 06/13/2024 05/16/2024 INR WHOLE BLOOD POC 2.4?H (Ref Range: 0.9-1.1) 2.3?H (Ref Range: 0.9-1.1) 2.4?H (Ref Range: 0.9-1.1) * Examination: ???General Examination: ?GENERAL APPEARANCE:?pleasant, well nourished, well developed, in no acute distress, calm and relaxed, overweight, elderly man.?HEAD:?atraumatic, normocephalic.?EYES:?eomi, perrla, anicteric, conjugate.?EARS:?normal.?NOSE:?septum intact.?ORAL CAVITY:?normal, unremarkable.?NECK/THYROID:?no jugular venous distention, no carotid bruit, thyroid normal.?LYMPH NODES:?no enlarged lymph nodes,spleen normal.?SKIN:?no suspicious lesions, anicteric.?HEART:?no clicks, gallops, murmurs, or rubs, irregular rhythm, S1, S2 normal, no s3, or vascular bruits.?LUNGS:?clear to auscultation .?BREASTS:??no masses palpable bilaterally.?ABDOMEN:?bowel sounds normal, no ascites, no organomegaly, no mass, overweight.?RECTAL EXAM:?not examined.?MUSCULOSKELETAL:?Crepitus both knees.?PERIPHERAL PULSES:?normal.?NEUROLOGIC:?alert and oriented, cranial nerves 2-12 grossly intact, deep tendon reflexes 2+ symmetrical, motor strength normal upper and lower extremities, sensory exam intact.?PSYCH:?alert, oriented.? Assessment: * Assessment: 1.?Benign prostatic hyperpla michael with lower urinary tract symptoms - N40.1 (Primary)???Notes :He rises from sleep once or twice a night to urinate.? We have discussed lifestyle modifications that could reduce nocturia.? He remains under the care of urology for his kidney stones.???2.?Hypertension - I10???Notes :His blood pressure today is normal. No change in his regimen was made.???3.?Hyperlipemia - E78.5???Notes :No current values are available.? A fasting lipid profile has been ordered prior to his next visit.???4.?Vitamin D deficiency, unspecified - E55.9???Notes :He was continued on vitamin D supplements.???5.?Reactive depression - F32.9???Notes :He feels that his depression is worse through the winter. We will help him get in touch with the mental health provider???6.?Overweight (BMI 25.0-29.9) - E66.3???Notes :His body mass index is 28.9. He has gained 7 pounds.We discussed weight reduction strategies. We discussed diet and nutrition.???7.?Primary osteoarthritis of both knees - M17.0???Notes :He has had one knee replacement which is functioning well. He has mild pain in the opposite knee. He will continue on his current regimen. The pain in his knees remains the same but he can conduct all of the activities of daily life. He will see the orthopedist regularly.???8.?Coronary artery disease involving [place] coronary artery of [place] heart without angina pectoris - I25.10???Notes :He denies any recent chest pain. He was evaluated for coronary syndrome, May 25, 2022 in the emergency room with negative results.???9.?Adenomatous polyp of colon, unspecified part of colon - D12.6???Notes :He will continue to have colonoscopies as needed.???10.?Nonrheumatic mitral valve regurgitation - I34.0???Notes :The mitral regurgitation has been documented on an echocardiogram and is mild and asymptomatic. He is free of dyspnea with exertion. A murmur was not heard on auscultation today.???11.?Pulmonary nodule - R91.1???Notes :This nodule was 8 mm in the right lower lobe and was PET negative in 2022.? He is due for another CT scan of the chest to follow up.??? Plan: * Treatment: 2.?Hypertension? Continue levETIRAcetam Tablet, 1000 MG, s, Orally, every 12 hrs.?LAB: PROFILE, FASTING (COMPREHENSIVE METABOLIC) ?LAB: PSA, TOTAL ?LAB: CBC WITH AUTO DIFF ?LAB: Lipid Panel ?LAB: Vitamin D 25-OH Total 3.?Hyperlipemia?LAB: PROFILE, FASTING (COMPREHENSIVE METABOLIC) ?LAB: PSA, TOTAL ?LAB: CBC WITH AUTO DIFF ?LAB: Lipid Panel ?LAB: Vitamin D 25-OH Total 4.?Vitamin D deficiency, uns pecified?LAB: PROFILE, FASTING (COMPREHENSIVE METABOLIC) ?LAB: PSA, TOTAL ?LAB: CBC WITH AUTO DIFF ?LAB: Lipid Panel ?LAB: Vitamin D 25-OH Total 5.?Others? Continue Atorvastatin Calcium Tablet, 40 MG, TAKE 1 TABLET BY MOUTH EVERY DAY;?Continue Propranolol HCl ER Capsule Extended Release 24 Hour, 60 MG, TAKE 1 CAPSULE BY MOUTH EVERY DAY FOR 90 DAYS; Continue Finasteride Tablet, 5 MG, TAKE 1 TABLET BY MOUTH EVERY DAY, Oral;?Continue Furosemide Tablet, 20 MG, 1 tablet, Orally, Once a day;?Continue Vitamin B-6 Tablet, 100 MG, TAKE 1 TABLET BY MOUTH EVERY DAY, Oral;?Continue Tamsulosin HCl Capsule, 0.4 MG, TAKE 1 CAPSULE BY MOUTH EVERYDAY AT BEDTIME, Oral;?Continue Warfarin Sodium (2.5 MG) Tablet, 2.5 MG, 2 tablets on Tuesdays, 1 tablet the rest of the other days;?Continue Omeprazole Capsule Delayed Release, 20 MG, TAKE 1 CAPSULE BY MOUTH EVERY DAY;?Continue Vitamin D3 Tablet, 25 MCG (1000 UT), TAKE 1 TABLET BY MOUTH EVERY DAY.?? * Imaging:? * ?Imaging: XR lumbar spin e 2-3V * Procedure Codes:? * Preventive Medicine:? ??Counseling:?Care goal follow-up plan:?Counseling for abnormal BMI given?Yes ?Above Normal BMI Follow-up?Dietary management education, guidance, and counseling, Dietary needs education, Exercise promotion: strength training, Exercise promotion: stretching, Feeding regime, Giving encouragement to exercise, Lifestyle education regarding diet, Nutrition / feeding management, Nutrition therapy, Prescribed activity/exercise education, Prescribed diet education, Prescribed dietary intake, Special diet education, Weight monitoring , Intervention, Order not done: Medical or Other reason not done ?Smoking/Tobacco Use?Patient counseled on the dangers of tobacco use and urged to quit.?07/30/2024 * Follow Up:?2 Months, In two months (Reason: OV, Routine follow-up) * Images: * Sign off status: Completed true * Provider:?Chris Walker MD Date:?07/12 Generated for Printi ng/Fayashg/eTransmitting on:?08/18/2024 02:41 PM EDT History and Physical Notes * HPI (History of Present Illness) Category Sub-Category Detail Notes COVID-19 Screening Questions Have you had any new onset fever, chills, cough, congestion, sore throat, shortness of breath, muscle aches?: No Examination Category Sub-Category Detail Notes General Examination GENERAL APPEARANCE: pleasant , well nourished, well developed, in no acute distress, calm and relaxed, overweight, elderly man HEAD: atraumatic, normocep halic EYES: eomi, perrla, anicte alton, conjugate EARS: normal NOSE: septum intact NECK/THYROID: no jugular venous di stention, no carotid bruit, thyroid normal HEART: no clicks, gallops, murmurs, or rubs, irregular rhythm, S1, S2 normal, no s3, or vascular bruits LUNGS: clear to auscultatio n ABDOMEN: bowel sounds normal, no ascites, no organomegaly, no mass, overweight NEUROLOGIC: alert and oriented, cranial nerves 2-12 grossly intact, deep tendon reflexes 2+ symmetrical, motor strength normal upper and lower extremities, sensory exam intact SKIN: no suspicious lesion s, anicteric PERIPHERAL PULSES: normal BREASTS: no masses palpable b ilaterally MUSCULOSKELETAL: Crepitus both knees LYMPH NODES: no enlarged lymph no indira,spleen normal RECTAL EXAM: not examined PSYCH: alert, oriented ORAL CAVITY: normal, unremarkable
== END 2024-08-18 13:45 | disposition home or self-care (01) ==
LOC: HO.ACS 13:04
PROVIDERS: PCP Internal Medicine Medical Oncology; Visit Provider Internal Medicine
DX: Z79.01 Long term (current) use of anticoagulants (principal)

== ENCOUNTER → 2024-08-18 13:04 | Outpatient (BNVA) | payer MEDICARE, SELFPAY | PROVIDERS: PCP Internal Medicine Medical Oncology; Visit Provider Internal Medicine | DX: I48.20 Chronic atrial fibrillation, unspecified (principal); Z79.01 Long term (current) use of anticoagulants; Z51.81 Encounter for therapeutic drug level monitoring | CPT/HCPCS: 85610; 99211 ==

== ENCOUNTER 2024-09-15 12:09 | Outpatient (REF) | payer MEDICARE, SELFPAY ==
--- NOTE | ~2024-09-15 | XR_ITS ---
EXAMINATION: XR LUMBOSACRAL SPINE CLINICAL INFORMATION: LOW BACK PAIN COMPARISON: None available. TECHNIQUE: Three views of the lumbosacral spine. FINDINGS: Syndesmophyte formation and marginal osteophyte formation from T12-L1 to L5-S1. Endplate sclerosis decreased intervertebral disc height and vacuum phenomenon at multiple levels of the axial skeleton. No acute cortical disruption. No gross malalignment. Vascular desiccation's. XR/XR lumbar spine 2-3V IMPRESSION: Multilevel moderate to severe thoracolumbar spondylosis. Seronegative arthritis should be considered. Electronically signed by: Arnoldo Collins MD 09/15/2024 12:49 PM EDT
--- OUTSIDE RECORDS SUMMARY | 2024-09-15 14:35 | XMS_ITS ---
Author Organization Chris Walker III, MD Address [address] [place] [address] [address] [place] [address] Care Team Providers Care Mushroom Grower Name Role Phone Chris Walker Primary Care Provider [phone] Allergies Allergen (clinical drug ingredient) Drug/Non Drug [...] Status Risk Notes Problem Vitamin D deficiency (51795935) Vitamin D deficiency, unspecified (E55.9) Active confirmed [...] Date Provider Diagnosis Chris Walker III, MD [address] [place] [address] [place] [address] 07/30/2024 Chris Walker Hypertension I10 ; Benign prostatic hyperplasia with lower urinary tract symptoms N40.1 ; Hyperlipemia E78.5 ; Vitamin D deficiency, unspecified E55.9 ; Reactive depression F32.9 ; Overweight (BMI 25.0-29.9) E66.3 ; Primary osteoarthritis of both knees M17.0 ; Coronary artery disease involving shoshone-bannock coronary artery of shoshone-bannock heart without angina pectoris I25.10 ; Adenomatous [...] orthopedist regularly. 07/30/2024 Coronary artery disease involving shoshone-bannock coronary artery of shoshone-bannock heart without angina pectoris (ICD-10 - I25.10) [...] months, Reason: OV, Routine follow-up Provider Name:Chris Walker, 10/01/2024 02:00:00 PM, [address] [place] [address] [address], [place], [address], Provider Name:Chris Walker, 12/03/2024 04:00:00 PM, [address] [place] [address] [address], [place], [address], Progress Notes * Reji LIU JrDOB:10/1944 (79 yo M)Acc No.[id number]:07/30/2024 Progress Notes Patient:?Reji LIU Jr Provider:?Chris Walker MD :1945???Age:79 Y???Sex:Male Sourav e:07/30/2024 Address:[address], [address], [place] Subjective: * Chief Complaints: * ???Right side [...] replacement colonoscopy tubular adenoma Dr. Hines 1989colonoscopy [facility] 2019appendectomy Past surgery on right knee [...] past year??No ?Points?0 ?Interpretation?Negative ???He lives in [facility] [place] [facility]. He has been to [place] since 1970. They have no children. 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 Smoking: Quit over 20 years ago, Work: Worked in a paper [employer] and at [employer] * Medications:?TakingAtorvasta tin Calcium 40 MG Tablet [...] tablet Orally Once a day Taking Vitamin B- 6 100 MG Tablet TAKE 1 TABLET BY [...] see the orthopedist regularly.???8.?Coronary artery disease involving shoshone-bannock coronary artery of shoshone-bannock heart without angina pectoris - I25.10???Notes :He [...] Walker MD Date:?07/12 Generated for Printi ng/Fayashg/eTransmitting on:?09/15/2024 02:35 PM EDT History and Physical Notes * [...]
--- OUTSIDE RECORDS SUMMARY | 2024-09-15 14:36 | XMS_ITS ---
Author Name [facility] [place] Organization [place] Address [address] [place] [address] Care Team Providers Care Spindraw Operator Name Role Phone SUNIL MONSIVAIS Primary [...] Amaya's Name Patient's Relationship to Policy Amaya [facility] (WNR) MEDICARE ADVANTAGE [facility] ([facility]) Jun 11, 2023 [id number] SANDRA LIU PATIENT Selected Encounter This section includes the information on record at [place] for the Encounter. Date/Time Encounter Type Encounter [...] forms of age-related cataract, bilateral GALVAN,MINH J [place] [facility] [facility] Jul 08, 2024 03:21 PM SECONDARY Open angle with borderline findings, high risk, bilateral MINH AGLVAN [facility] Jul 08, 2024 03:21 PM SECONDARY Presbyopia MINH GALVAN [facility] Jul 08, 2024 03:21 PM SECONDARY Unspecified retinal break, left eye MINH GALVAN [facility] Plan of Treatment: Future Appointments (+ 6 months) and Future Tests (+/- 45 days) The Plan of Treatment section includes future care activities for the patient from all [place] [facility]. This section includes future appointments and future orders which are active, pending or scheduled. Future Appointments This section includes appointments that were scheduled to occur 6 months from the date of the Encounter, up to a maximum of 20 appointments. The data comes from all [place] treatment facilities. Appointment Date/Time Appointment Type Appointme nt Facility Name October 10, 2024 12:30 PM AMBULATORY - MEDICINE [facility] October 10, 2024 01:00 PM AMBULATORY MEDICINE [facility] Dec 10, 2024 01:30 PM AMBULATORY - MEDICINE [facility] Social History: Smoking Status (Most current) and Tobacco Use (All prior to encounter date) This section includes the most current, and the historical, smoking and tobacco- related health factors from the [place] facility where the Encounter took place. Current Smoking Status This section includes the most current smoking, or tobacco-related health factor, from the [place] facility where the Encounter took place. Date/Time Current Smoking Status Comment Facil ity November 06, 2023 10:34 AM VA-TOBACCO FORMER USER [facility] Tobacco Use History This section includes a history of the smoking, or tobacco-related health factors, that were collected on or before the date of the Encounter. The data comes from the [place] facility where the Encounter took place. Date/Time Smoking Status/Tobacco Use Comment F acility November 06, 2023 10:34 AM [place]-TOBACCO QUIT 15 YRS OR MORE [facility] Advance Directives: All historical and current Section Date Range: From patient's date of to the date document was created. This section includes ALL of a patient's completed or amended VA Advance and Rescinded Directives. The entries below indicate that a directive exists for the patient, but an actual copy is not included with this document. The data comes from all [place] facilities. Date Advance Directives Provider Source Dec 05, 2023 ADVANCE DIRECTIVE DELIA DEL VALLE [place] [facility] [place] [facility] Encounter Notes: All associated encounter notes This [...] Reason for Visit/CC: Patient here for CEE. [place] reports his eye have gotten worse. Reports most recent glasses were from summer 2023 and feels vision changed since then. is aware he has cataracts and curious [...] (-) Blindness MHx: Code Description Z87.891 Ex-smoker ([facility] [id number]) E66.3 Overweight ([facility] [id number]) K21.9 Gastroesophageal reflux disease without esophagitis ([facility] [id number]) Z92.29 H/O: anticoagulant therapy ([facility] 278002932) R91.1 Solitary nodule of lung ([facility] 233056639) E78.5 Hyperlipidemia ([facility] 03150448) M17.0 Bilateral osteoarthritis of knees ([facility] [id number]) I25.10 Coronary arteriosclerosis ([facility] 01256931) N40.0 Benign prostatic hyperplasia ([facility] 843186936) R97.20 Prostate specific antigen above reference range ([facility] 440141179) F32.A Reactive depression (situational) ([facility] 63488684) D12.6 Adenomatous polyp of colon ([facility] 936790486) R69. Closed fracture of multiple ribs ([facility] 80451813) I34.0 Mitral valve regurgitation ([facility] 75103566) G56.03 Bilateral carpal tunnel syndrome ([facility] [id number]) I48.20 Chronic atrial fibrillation ([facility] 063050830) R56.9 Seizure ([facility] 76402862) F41.9 Anxiety ([facility] 73948891) SYSTEMIC MEDICATIONS/OCULAR MEDICATIONS: Active Outpatient Medications (including [...] ~1989 Current Rx with last BCVA: OD: +0.50-1.34s260 OS: +1.00-1.28z546 Add: +3.00 DVA ( )sc ( x )cc - [x]phoropter []specs []CL OD: 20/40-1 OS: 20/20-2 Entrance Testing: Pupil: PERRL (-)APD EOM: SAFE OU, (-)Pain/Diplopia CVF: FTFC OU Subjective Refraction: OD: +1.50-2.05v641 20/25+2 OS: +0.75-0.03b616 20/20 Add: +2.75 *Trial framed and very [...] and intact (-)holes, tears, detachments 360 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 -Stress importance of continued follow-up appointments -[place] repeated back the plan and education. -RTC 3 months for visual imaging and IOP check 3. Peripheral retinal hole OS - well-pigmented without indication for treatment -Pt ed re today's findings - repeated back the plan and education. [...] this VA (local) and dispensed from another [place] or [facility] facility (remote) as well as inpatient orders [...] this VA (local) and dispensed from another [place] or [facility] facility (remote) as well as inpatient orders (local pending and active), local clinic medications, locally documented non-VA medications, and local prescriptions that have or been discontinued in the past 90 days. Non-VA Meds Last Documented On: Dec 05, 2023 NOTE The display of VA prescriptions dispensed from another [place] or [facility] facility (remote) is limited to active outpatient prescription entries matched to National Drug File at the originating site and may not include some items such as investigational drugs, compounds, etc. NOT INCLUDED IN THIS LIST: Medications self-entered by the patient into personal health records (i.e. Code Rebel) are NOT included in this list. Non-VA medications documented outside this [place], remote inpatient orders (regardless of status) and [...] TERMS AND POSSIBLE PATIENT ACTIONS INPT = [place] inpatient order IV = [place] intravenous medication OUTPT = [place] outpatient prescription PHARMACY POSSIBLE PATIENT TERMS EXPLANATION ACTIONS -------- ---- ACTIVE A prescription that can be If you have refills, filled at the local [place] pharmacy. you may request a refill of this prescription from your [place] pharmacy. CLINIC A medication you received during If you have questions a visit to a [place] clinic or about this medication emergency department. contact your [place] healthcare team. DISCONTINUED A prescription your provider has Contact your VA stopped. It is no longer healthcare team if you available to be sent to you or need more of this picked up at the [place] pharmacy medication. window. A prescription which is [...] the VA. Or, it may be an veej-jyu-nydqqhy (OTC), herbal, dietary supplements or sample medication. [...] Medication Reconciliation List Offered and Declined by () Medication Reconciliation List Printed for at Exam () Optometry HT Please Print and Mail Copy of Medication Reconciliation List () AMSA Please Print and Mail Copy of Medication Reconciliation List /es/ MINH GALVAN OD NATIONAL ACCOUNT MANAGER Signed: 07/08/2024 15:22 MINH GALVAN [place] [facility]
--- OUTSIDE RECORDS SUMMARY | 2024-09-15 14:36 | XMS_ITS | Clinical Summary ---
Author Organization [employer] Address [address] 7 [place] [address] Care Team Providers Care Museum Host/Hostess Name Role Phone Unavailable Primary Care Provider Unavailabl e Encounters Date Type Department Care Team Description 09/02/2024 3:20 PM EDT Immunization [facility] [address] [place], [place] [id number] Encounter for immunization (Primary Dx) from Last 3 Months Immunizations Name Administration Dates Next Due Influenza, Unspecified 02/09/2023 Pfizer Covid-19 Vaccine 12+ 09/02/2024 Pneumococcal Conjugate PCV 13 07/19/2015 Pneumococcal Polysaccharide PPSV23 05/03/2018 Tdap 09/22/2020 Social History Tobacco Use Types Packs/Day Years Used Date Smoking Tobacco: Never Assessed Sex and Gender Information Value Date Recorded Sex Assigned at Male 09/02/2024 1:33 PM EDT Legal Sex Male 1:32 PM EDT Gender Identity Male 09/02/2024 1:33 PM EDT Sexual Orientation Straight 09/02/2024 1: 33 PM EDT Plan of Treatment Health Maintenance Due Date Last Done Comments Depression Screening 1945 Lipid Panel 1945 SDOH Screening 1945 Alcohol/Substance Use Screening 1959 Tobacco Screening 1959 Hepatitis C Screening 1965 Zoster Vaccines (1 of 2) 1997 RSV Patients and Patients Aged 60 years or older (1 - 1-dose 75+ series) 2022 Influenza Vaccine (#1) 2024 02/09/2023 DTaP/Tdap/Td Vaccines (2 - T d or Tdap) 09/22/2030 09/22/2020 Pneumococcal Vaccine: 50+ Years Completed 05/03/2018, 07/19/2015 COVID-19 Vaccine Completed 09/02/2024 HIB Vaccines Aged Out No longer eligi ble based on patient's age to complete this topic HPV Vaccines Aged Out No longer eligi ble based on patient's age to complete this topic Hepatitis A Vaccines Aged Out No long er eligible based on patient's age to complete this topic Hepatitis B Vaccines Aged Out No long er eligible based on patient's age to complete this topic IPV Vaccines Aged Out No longer eligi ble based on patient's age to complete this topic Meningococcal Vaccine Aged Out No deanna jem eligible based on patient's age to complete this topic RSV under 20 months Aged Out No longe r eligible based on patient's age to complete this topic Rotavirus Vaccines Aged Out No longer eligible based on patient's age to complete this topic Insurance [place] [employer]
--- OUTSIDE RECORDS SUMMARY | 2024-09-15 14:36 | XMS_ITS | Continuity of Care Document ---
Author Name [facility] Organization [facility] Care Team Providers Care Title Vehicle Service Attendant Name Role Phone [facility] Unavailable Unavailable Problems Combined list of problems [...] 05 Entered By: SOFIA BLISS Comment: involving [place] coronary artery of [place] heart without angina pectoris [facility] [...] will be referred to urology for evaluation[facility] [place] [facility] Reactive depression (situational) Active Condition November 06, 2023 Entered By: SOFIA BLISS Comment: He feels that his depression is worse through the winter. We will help him get in touch with the mental health provider [facility] Seizure Active Condition [facility] [place] [facility] Solitary nodule of lung Active Condition [facility] [place] [facility] Diagnosis: ICD-10-CM Z46.0 Encounter for fit/adjst of spectacles and contact lenses Active Diagnosis [facility] [place] [facility] Diagnosis: ICD-10-CM H25.813 Combined forms of age-related cataract, bilateral [facility] [place] Diagnosis: ICD-10-CM K21.9 Gastro-esophageal reflux disease without esophagitis [facility] Medications Combined list of outpatient [...] DAILY ORAL ACTIVE LOI, SUNIL STEF 2023 [facility] CHOLECALCIF SARAHY 50MCG (2,000UNIT) TAB TAKE ONE TABLET BY MOUTH ONCE DAILY ORAL ACTIVE LOI, SUNIL STEF 2023 [facility] FINASTERIDE 5MG TAB TAKE ONE TABLET BY MOUTH ONCE DAILY ORAL ACTIVE LOI, SUNIL STEF 2023 [facility] FUROSEMIDE 20MG TAB TAKE ONE TABLET BY MOUTH ONCE DAILY ORAL ACTIVE LOI, SUNIL STEF 2023 [facility] OMEPRAZOLE 20MG CAP,EC TAKE 1 CAPSULE BY MOUTH EVERY MORNING 30 MINUTES BEFORE BREAKFAS T ORAL ACTIVE LOI, SUNIL STEF 2023 [facility] PAROXETINE HCL 30MG TAB TAKE ONE TABLET BY MOUTH ONCE DAILY ORAL ACTIVE LOI, SUNIL STEF 2023 [facility] PROPRANOLOL HCL 40MG TAB TAKE 1.5 TABLETS BY MOUTH ONCE DAILY ORAL ACTIVE LOI, SUNIL STEF 2023 [facility] TAMSULOSIN HCL 0.4MG CAP TAKE 1 CAPSULE BY MOUTH ONCE DAILY ORAL ACTIVE LOI, SUNIL STEF 2023 [facility] WARFARIN (NON-VA) TAB TAKE 2.5 BY MOUTH ONCE DAILY ORAL ACTIVE LOI, SUNIL MAGNOLIA 2023 [facility] Allergies, Adverse Reactions, Alerts Combined list of allergies from Department of Defense and Veterans Affairs facilities. It does not include entries that were removed or entered in error. Substance Category Reaction Severity Reaction type Status Date Reported Comments Source INDOMETHACIN Propensity to adverse reactions to drug (finding) active 4 [facility] [place] [facility] OXYCODONE HCL 5MG TABLET Propensity to adverse reactions to drug (finding) active [facility] SULFAMETHOXAZ OLE Propensity to adverse reactions to drug (finding) active [facility] Immunizations Combined list of available immunizations from the Department of Defense and Veterans Affairs facilities. Immunization Series Date Given Administered By Site Reaction Lot Number CVX Code Drug Maintenance Director Status Comments Source INFLUENZA, UNSPECIFIED FORMULATION 2022 88 complet ed [place] [facility] TDAP 2020 115 complet [facility] [place] [facility] PNEUMOCOCCAL POLYSACCHARID E PPV23 2017 33 complet ed [place] [facility] [place] [facility] PNEUMOCOCCAL CONJUGATE PCV 13 2015 133 complet ed [place] [facility] [facility] Vital Signs Combined list of [...] [facility] Outpatient Encounter [id number] 11/01 [facility] [place] [facility] Outpatient Encounter [id number] 11/05 [facility] [place] [facility] OFFICE O/P EST MOD 30 MIN [id number] Diagnos is: ICD-10- CM K21.9 Gastro- esophag eal reflux disease without esophag itis Junie MONSIVAIS 12/04 [place] [facility] [place] [facility] [place] [facility] Outpatient Encounter [id number] 12/04 [place] [facility] [place] [facility] [place] [facility] Outpatient Encounter [id number] 12/04 [place] [facility] [facility] [facility] [place] [facility] COMPRE OPH EXAM NEW PT 1/> [id number] Diagnos is: ICD-10- CM H25.813 Combine d forms of age-rel ated catarac t, bilater al JIMI GALVAN 07/08 [facility] [place] [facility] [place] [facility] FIT SPECTACLES BIFOCAL [id number] Diagnos is: ICD-10- CM Z46.0 Encount er for fit/adj st of spectac les and contact lenses JIMI GALVAN 07/11 [facility] Social History Combined list of available smoking, tobacco, and other social history from Department of Defense and Veterans Affairs facilities. Social History Type Response Date Comment Sourc e Tobacco smoking status [place]-TO[place] FORMER USER 11/06/2023 [facility] History of tobacco use [place]-TOBACCO QUIT 15 YRS OR MORE 11/06/2023 [facility] Plan of Care List of future care activities from [facility] of [facility] facilities. Additional future care activities may be listed in the Assessment and Plan section. Date/Time Care Activity Care Activity Detail Facili ty 10/10/2024 AMBULATORY - MEDICINE AMBULATORY - MEDICI NE [facility] Advance Directives List of completed, amended, or rescinded Advance Directives on record at [facility] facilities. An actual copy of the Directive is not included. Date Advance Directive Provider Source 12/05/2023 ADVANCE DIRECTIVE DELIA DEL VALLE [facility]
--- OUTSIDE RECORDS SUMMARY | 2024-09-15 14:36 | XMS_ITS ---
Author Organization Chris Walker III, MD Address [address] [place] [address] [place] [address] Care Team Providers Care Truant Officer Name Role Phone Chris Walker Primary Care Provider [phone] REASON FOR VISIT Refills Social History Sex Assigned At : Social History Observation Description Sex Assigned At Male Encounters Encounter Location Date Provider Diagnosis Chris Walker III, MD [address] [place] [address] [place] [address] 08/06/2024 Chris Walker Plan Of Treatment Next Appt Details Provider Name:Chris Walker, 10/01/2024 02:00:00 PM, [address] [place] [address] [place], [address], Provider Name:Chris Walker, 12/03/2024 04:00:00 PM, [address] [place] [address] [place], [address], Progress Notes * Reji LIU JrDOB:10/1944 (79 yo M)Acc No.[id number]:08/06/2024 Patient:?Reji LIU Jr :1945???Age:79 Y???Sex:Male Address:[address], [place], [address] * true * Date:? Generated for Trevor pool/Tawny/Edvinitting on:?09/15/2024 02:35 PM EDT
--- OUTSIDE RECORDS SUMMARY | 2024-09-15 14:36 | XMS_ITS ---
Author Organization Chris Walker III, MD Address [address] [place] [address] [place] [address] Care Team Providers Care Naval Aircrewman Operator Name Role Phone Chris Walker Primary Care Provider REASON FOR VISIT [employer] Forms Social History Sex Assigned At : Social History Observation Description Sex Assigned At Male Encounters Encounter Location Date Provider Diagnosis Chris Walker III, MD [address] [place] [address] [place] [address] 07/03/2024 Chris Walker Plan Of Treatment Next Appt Details Provider Name:Chris Walker, 10/01/2024 02:00:00 PM, [address] [place] [address] [place], [address], Provider Name:Chris Walker, 12/03/2024 04:00:00 PM, [address] [place] [address] [place], [address], Progress Notes * Reji LIU JrDOB:10/1944 (79 yo M)Acc No.[id number]:07/03/2024 Patient:?Reji LIU Jr :1945???Age:79 Y???Sex:Male Address:[address], [place], [address] * true * Date:? Generated for Trevor pool/Tawny/Edvinitting on:?09/15/2024 02:35 PM EDT
--- OUTSIDE RECORDS SUMMARY | 2024-09-15 14:36 | XMS_ITS ---
Author Name [facility] [place] Organization [facility] [place] Address [address] [place] [id number] Care Team Providers Care Oil Tester Name Role Phone SUNIL MONSIVAIS Primary Care [...] Amaya's Name Patient's Relationship to Policy Amaya [facility] (WNR) MEDICARE ADVANTAGE [facility] ([facility]) Jun 11, 2023 [id number] SANDRA LIU PATIENT Selected Encounter This section includes the information on record at CT for the Encounter. Date/Time Encounter Type Encounter Description Reason Provider Source Dec 05, 2023 02:00 PM OFFICE O/P EST MOD 30 MIN PRIMARY CARE/MEDICINE ICD-10-CM K21.9 Gastro-esophageal reflux disease without esophagitis SUNIL MONSIVAIS [facility] Encounter Template Text not used by CT Assessments - Encounter Diagnoses This section includes the primary and secondary diagnoses documented for the Encounter. Date/Time Primary/Secondary Diagnosis Diagnosis Name Provider Source Dec 05, 2023 03:14 PM PRIMARY Gastro-esophageal reflux disease without esophagitis SUNIL MONSIVAIS [facility] Dec 05, 2023 03:14 PM SECONDARY Anxiety disorder, unspecified LOI,SUNIL FINCH [facility] [place] [facility] Dec 05, 2023 03:14 PM SECONDARY Benign prostatic hyperplasia without lower urinry tract symp LOI,SUNIL HUBBARDNE [facility] [place] [facility] Dec 05, 2023 03:14 PM SECONDARY Bilateral primary osteoarthritis of knee LOI,SUNIL STEF [facility] [place] [facility] Dec 05, 2023 03:14 PM SECONDARY Chronic atrial fibrillation, unspecified LOI,SUNIL STEF [facility] [place] [facility] Dec 05, 2023 03:14 PM SECONDARY Depression, unspecified LOI,SUNIL STEF [facility] [place] [facility] Dec 05, 2023 03:14 PM SECONDARY Hyperlipidemia, unspecified LOI,SUNIL STEF [facility] [place] [facility] Dec 05, 2023 03:14 PM SECONDARY Solitary pulmonary nodule LOI,SUNIL STEF [facility] [place] [facility] Dec 05, 2023 03:14 PM SECONDARY Unspecified convulsions LOI,SUNIL HUBBARDNE [facility] [place] [facility] Vital Signs: All taken on the encounter date This section contains inpatient and outpatient Vital Signs collected on the date of the Encounter. Date/Time Temperature Pulse Blood Pressure Respiratory Rate SP02 Pain Height Weight Body Mass Index Source Dec 05, 2023 02:24 PM 98.3 70 100/62 16 [address] [facility] [place] [facility] Social History: Smoking Status (Most current) and Tobacco Use (All prior to encounter date) This section includes the most current, and the historical, smoking and tobacco- related health factors from the CT facility where the Encounter took place. Current Smoking Status This section includes the most current smoking, or tobacco-related health factor, from the [place] facility where the Encounter took place. Date/Time Current Smoking Status Comment Facil itNovember 06, 2023 10:34 AM VA-TOBACCO FORMER USER [facility] [place] [facility] Tobacco Use History This section includes a history of the smoking, or tobacco-related health factors, that were collected on or before the date of the Encounter. The data comes from the CT facility where the Encounter took place. Date/Time Smoking Status/Tobacco Use Comment F acility November 06, 2023 10:[address]-TOBACCO QUIT 15 YRS OR MORE [facility] Advance Directives: All historical and current Section Date Range: From patient's date of to the date document was created. This section includes ALL of a patient's completed or amended CT Advance and Rescinded Directives. The entries below indicate that a directive exists for the patient, but an actual copy is not included with this document. The data comes from all CT facilities. 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 The workup continues has EEG (he thinks ) at [facility] next week, workup ongoing Chronic atrial fibrillation is anticoagulated on warfarin, Nonrheumatic mitral valve regurgitation- The mitral regurgitation has been documented on an echocardiogram and is mild and asymptomatic. He is free of dyspnea with exertion. 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 He likely is on propranolol for rate [...] he is not sure why CAD involving [place] coronary artery of [place] heart without angina pectoris osteoarthritis bilateral knees- Had right TKR x2 he manages with mild activity he thinks he might need a walker Benign prostatic hyperplasia with lower urinary tract symptoms also with elevated PSA increased from about 1 to 4 and apparently referred to Urology Depression Follows with Dr Locke in the [facility], takes propranolol 60mg daily, he would like to stay with her for now Past Medical History: Active problems - Computerized Problem List is the source for the followin. Ex-smoker 2. Overweight 3. Hypertensive disorder 4. Gastroesophageal reflux disease without esophagitis 5. H/O: anticoagulant therapy 6. Solitary nodule of lung 7. Hyperlipidemia 8. Bilateral osteoarthritis of knees 9. Coronary arteriosclerosis involving [place] coronary artery of [place] heart without angina pectoris 10. Benign prostatic [...] Depression Follows with Dr Locke in the [facility], takes propranolol 60mg daily, he would like to stay with her for now Patient prefers to follow up with off-site PCP regularly for titration of meds and management of chronic conditions. He will come here annually. Advised if anything changes and no longer following with off-site PCP, please call front office help to schedule sooner appt with [facility] PCP. The above plan and education was reviewed with the [place] and she verbalized understanding. -Clinical Reminders- Toxic Exposure Screening: The /caregiver was asked if they believe the experienced any toxic exposure(s), such as Airborne Hazards and Open Burn Pit, [place] War related exposures, Agent [place], Radiation, contaminated water at [place] or other such exposures, while serving in [...] of active outpatient prescriptions dispensed from this CT (local) and dispensed from another VA or [...] Nurse Practitioner Signed: 12/05/2023 15:[address] [facility] [place] [facility] Dec 05, 2023 01:58 PM [...] REGISTERED NURSE Signed: 12/05/2023 14:[address] [facility]
== END 2024-09-15 12:10 | disposition home or self-care (01) ==
LOC: HO.XRAY 12:09
PROVIDERS: PCP Internal Medicine Medical Oncology; Visit Provider Internal Medicine Medical Oncology
DX: M54.50 Low back pain, unspecified (principal); I48.20 Chronic atrial fibrillation, unspecified; Z51.81 Encounter for therapeutic drug level monitoring; Z79.01 Long term (current) use of anticoagulants
CPT/HCPCS: 72100; 85610; 99211

== ENCOUNTER → 2024-09-15 12:17 | Outpatient (BNV) | payer MEDICARE, SELFPAY | PROVIDERS: PCP Internal Medicine Medical Oncology; Visit Provider Radiology Diagnostic Radiology | DX: M47.815 Spondylosis without myelopathy or radiculopathy, thoracolumbar region (principal) | CPT/HCPCS: 72100 ==

== ENCOUNTER 2024-09-15 13:46 | Outpatient (AMB) | payer MEDICARE, SELFPAY ==
[2024-09-15 13:52] LABS: Prothrombin Time Whole Bld POC 23.8 sec (11.1-13.5)
--- NOTE | 2024-09-15 13:53 | MHC.OFFVISCO ---
Intake Intake Visit Reasons: Anticoagulation Allergies indomethacin [From INDOCIN] Allergy (Intermediate, Verified 09/15/24 13:47) RASH oxycodone [OXYCODONE] Allergy (Intermediate, Verified 09/15/24 13:47) VOMITING/RASH Sulfa (Sulfonamide Antibiotics) [SULFA (SULFONAMIDE ANTIBIOTICS)] Allergy (Intermediate, Verified 09/15/24 13:47) BLISTERS, sore on the end of his penis acetaminophen [Percocet] Adverse Reaction (Unknown, Verified 09/15/24 13:47) vomiting Medication List - Last Reconciled 09/15/24 by Mya Dillard RN atorvastatin 1 tab PO DAILY cholecalciferol (vitamin D3) 25 mcg PO DAILY donepezil 5 mg PO DAILY levetiracetam 1,000 mg PO BID omeprazole 1 cap PO DAILY paroxetine HCl 40 mg PO DAILY paroxetine HCl 10 mg PO DAILY propranolol ER 1 cap PO DAILY pyridoxine (vitamin B6) 100 mg PO DAILY pyridoxine (vitamin B6) mg PO tamsulosin 0.4 mg PO DAILY warfarin 2.5 mg See Protocol PO 2XW Nursing Note INR: 2.0 in therapeutic range of 2-3 Medications and supplements reviewed No changes in health, diet, medications, or supplements, Denies any signs and symptoms of bleeding or bruising or clotting. Bleeding, bruising, clotting discussed Nutritional guidance given to avoid greens today and to have a serving of foods from the list that raises the INR. Food list discussed. Dose: 2.5mg X 6 days and 5mg X 1 day F/U INR: 4 weeks Patient verbalizes understanding of instructions given Anti-Coag Initial Assessment Social Hx Patient Tobacco Use Status: Former Tobacco user Tobacco use type: Cigarette Alcohol intake frequency: former alcohol drinker Cardiovascular Hx: HTN, Arrhythmias and Varicose Veins Musculoskeletal Hx: Arthritis GI Hx: Other (GERD) Neurological Hx: Epilepsy/Seizures Cancer HX: No Psych. Illness/Depression: Yes (DEPRESSION) Coding Level of Care Code Est Patient Level 1 Diagnoses Current use of anticoagulant therapy Z79.01 Results AMB INR Fingerstick AMB INR Fingerstick 2.0 Last Edit by Mya Dillard RN on 09/15/24 13:51 interface delay Assessment & Plan Assessment & Plan (1) Current use of anticoagulant therapy: Code(s): Z79.01 - alf (current) use of anticoagulants Category: Medical
--- OUTSIDE RECORDS SUMMARY | 2024-09-15 16:26 | XMS_ITS | Clinical Summary ---
Author Organization [employer] Address [address] [place] [address] Care Team Providers Care Stain Sprayer Name Role Phone Unavailable Primary Care Provider Unavailabl e Encounters Date Type Department Care Team Description 09/02/2024 3:[address] [facility] [address], [place] [id number] Encounter for immunization (Primary Dx) from Last [...]
--- OUTSIDE RECORDS SUMMARY | 2024-09-15 16:26 | XMS_ITS | Continuity of Care Document ---
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 [facility] [place] [facility] Reactive depression (situational) Active Condition November 06, 2023 Entered By: SOFIA BLISS Comment: He feels that his depression is worse through the winter. We will help him get in touch with the mental health provider [facility] Seizure Active [facility] [place] [facility] Solitary nodule of lung Active Condition [facility] [place] [facility] Diagnosis: ICD-10-CM Z46.0 Encounter for fit/adjst of spectacles and contact lenses Active Diagnosis [facility] [place] [facility] Diagnosis: ICD-10-CM H25.813 Combined forms of age-related cataract, bilateral [facility] [place] [facility] Diagnosis: ICD-10-CM K21.9 Gastro-esophageal reflux disease without esophagitis Active [facility] Medications Combined list of outpatient [...] DAILY ORAL ACTIVE LOI, SUNIL STEF 2023 [facility] CHOLECALCIF SARAHY 50MCG (2,000UNIT) TAB TAKE ONE TABLET BY MOUTH ONCE DAILY ORAL ACTIVE LOI, SNUIL STEF 2023 [facility] FINASTERIDE 5MG TAB TAKE ONE TABLET BY MOUTH ONCE DAILY ORAL ACTIVE LOI, SUNIL STEF 2023 [facility] [place] FUROSEMIDE 20MG TAB TAKE ONE TABLET BY MOUTH ONCE DAILY ORAL ACTIVE LOI, SUNIL STEF 2023 [facility] OMEPRAZOLE 20MG CAP,EC TAKE 1 CAPSULE BY MOUTH EVERY MORNING 30 MINUTES BEFORE BREAKFAS T ORAL ACTIVE LOI, SUNIL STEF 2023 [facility] [place] [facility] PAROXETINE HCL 30MG TAB TAKE ONE TABLET BY MOUTH ONCE DAILY ORAL ACTIVE LOI, SUNIL STEF 2023 [facility] PROPRANOLOL HCL 40MG TAB TAKE 1.5 TABLETS BY MOUTH ONCE DAILY ORAL ACTIVE LOI, SUNIL STEF 2023 [facility] TAMSULOSIN HCL 0.4MG CAP TAKE 1 CAPSULE BY MOUTH ONCE DAILY ORAL ACTIVE LOI, SUNIL STEF 2023 [facility] WARFARIN (NON-VA) TAB TAKE 2.5 BY MOUTH ONCE DAILY ORAL ACTIVE LOI, SUNIL MILLS 2023 [facility] [place] [facility] Allergies, Adverse Reactions, Alerts Combined list of allergies from Department of Defense and Veterans Affairs facilities. It does not include entries that were removed or entered in error. Substance Category Reaction Severity Reaction type Status Date Reported Comments Source INDOMETHACIN Propensity to adverse reactions to drug (finding) active 4 [facility] [place] [facility] OXYCODONE HCL 5MG TABLET Propensity to adverse reactions to drug (finding) active 4 [facility] [place] [facility] SULFAMETHOXAZ OLE Propensity to adverse reactions to drug (finding) active 4 [facility] [place] [facility] Immunizations Combined list of available immunizations from the Department of Defense and Veterans Affairs facilities. Immunization Series Date Given Administered By Site Reaction Lot Number CVX Code Drug Deburrer Status Comments Source INFLUENZA, UNSPECIFIED FORMULATION 2022 88 complet ed [place] [facility] [place] [facility] TDAP 2020 115 [facility] [place] PNEUMOCOCCAL POLYSACCHARID E PPV23 2017 33 complet ed [place] [facility] [place] [facility] PNEUMOCOCCAL CONJUGATE PCV 13 2015 133 complet ed [facility] [place] [facility] Vital Signs Combined list of [...] [facility] [place] [facility] Out[facility] Encounter [id number] 11[facility]01 [facility] [place] [facility] [place] [facility] Outpatient Encounter [id number] 11/05 [facility] [place] [facility] [place] [facility] OFFICE O/P EST MOD 30 MIN [id number] Diagnos is: ICD-10- CM K21.9 Gastro- esophag eal reflux disease without esophag itis Junie MONSIVAIS 12/04 [facility] [place] [facility] [place] [place] [facility] Outpatient Encounter [id number] 12/04 [facility] [place] [facility] [place] [facility] Outpatient Encounter [id number] 12/04 [facility] [place] [facility] [place] [facility] COMPRE OPH EXAM NEW PT 1/> [id number] Diagnos is: ICD-10- CM H25.813 Combine d forms of age-rel ated catarac t, bilater al JIMI GALVAN 07/08 [facility] [place] [facility] [place] [facility] [employer] [id number] Diagnos is: ICD-10- CM Z46.0 Encount er for fit/adj st of spectac les and contact lenses JIMI GALVAN 07/11 [facility] Social History Combined list of available smoking, tobacco, and other social history from Department of Defense and Veterans Affairs facilities. Social History Type Response Date Comment Sourc e Tobacco smoking status NHIS DE-TOBACCO FORMER USER 11/06/2023 [facility] History of tobacco use DE-TOBACCO QUIT 15 YRS OR MORE 11/06/2023 [facility] Plan of Care List of future care activities from Department of [facility] facilities. Additional future care activities may be listed in the Assessment and Plan section. Date/Time Care Activity Care Activity Detail Facili ty 10/10/2024 AMBULATORY - MEDICINE AMBULATORY - MEDICI NE [facility] Advance Directives List of completed, amended, or rescinded Advance Directives on record at Department of [facility] facilities. An actual copy of the Directive is not included. Date Advance Directive Provider Source 12/05/2023 ADVANCE DIRECTIVE DELIA DEL VALLE [facility]
--- OUTSIDE RECORDS SUMMARY | 2024-09-15 16:26 | XMS_ITS | Patient Health Record ---
Author Organization Chris Walker III, MD Address [address] [place] [address] [address] [place] [address] Care Team Providers Care Hand Sole Sewer Name Role Phone Chris Walker Primary Care [...] Negative - INR WHOLE BLOOD POC Reviewed date:10/05/2023 04:55:55 AM Interpretation: Performing Lab:[facility], [address] [place] [phone] Notes/Report: PT, INR - Anti Coag Clinic 3.0 0.9-1.1 METER #: [id number] INTERNATIONAL NORMALIZED RATIO (INR) REFERENCE RANGES Reference [...] Interpretation: Performing Lab:[facility], [address] [place] [phone] Notes/Report: Prothrombin Time Whole Bld POC 35.8 11.1-13.5 sec INR WHOLE BLOOD POC Reviewed date:11/01/2023 10:54:06 AM Interpretation: Performing Lab:[facility], [address] [place] [phone] Notes/Report: PT, INR - Anti Coag Clinic 3.3 0.9-1.1 METER #: [id number] INTERNATIONAL NORMALIZED RATIO (INR) REFERENCE RANGES Reference [...] Interpretation: Performing Lab:[facility], [address] [place] [phone] Notes/Report: Prothrombin Time Whole Bld POC 39.5 11.1-13.5 sec INR WHOLE BLOOD POC Reviewed date:11/17/2023 05:37:31 AM Interpretation: Performing Lab:[facility], [address] [place] [phone] Notes/Report: PT, INR - Anti Coag Clinic 3.1 0.9-1.1 METER #: [id number] INTERNATIONAL NORMALIZED RATIO (INR) REFERENCE RANGES Reference [...] Interpretation: Performing Lab:[facility], [address] [place] [phone] Notes/Report: Prothrombin Time Whole Bld POC 37.2 11.1-13.5 sec Complete Blood Count Auto Di ff Reviewed date:12/01/2023 05:55:56 PM Interpretation: Performing Lab:[facility], [address] [place] [phone] Notes/Report: White Blood Count 5.5 4.8-10.8 X10*3/uL [...] NRBC Abs Auto 0.000 0.0-0.012 X10*3/uL Comprehensive [place]. Panel Fa Reviewed date:12/01/2023 05:55:56 PM Interpretation: Performing Lab:[facility], [address] [place] [phone] Notes/Report: Sodium 141 135-145 mmol/L Potassium 3.9 3.3-5.1 mmol/L Chloride 107 96-108 mmol/L Carbon Dioxide 30 22-29 mmol/L Anion Gap 8 12-20 Blood Urea Nitrogen 11 9-16 mg/dL Creatinine 0.99 0.5-1.4 mg/dL Estimated Glomerular Filt Rate > 60 NOTE: For -[place]oz[place] individuals, multiply the result by 1.210. Chronic [...] Interpretation: Performing Lab:[facility], [address] [place] [phone] Notes/Report: Triglycerides 92 <150 mg/dL Desirable Triglyceride: [...] Interpretation: Performing Lab:[facility], [address] [place] [phone] Notes/Report: Prostate Specific Antigen 2.40 <0.05-4.0 ng/mL PSA methodology: [place] Alinity i Chemiluminescent Microparticle Immunoassay (CMIA) Vitamin D 25-OH Total Reviewed date:12/01/2023 05:55:56 PM Interpretation: Performing Lab:[address] [phone] Notes/Report: Vitamin D 25-OH Total 34.0 >30 [...] Interpretation: Performing Lab:[facility], [address] [place] [phone] Notes/Report: PT, INR - Anti Coag Clinic 3.2 0.9-1.1 METER #: [id number] INTERNATIONAL NORMALIZED RATIO (INR) REFERENCE RANGES Reference [...] Interpretation: Performing Lab:[facility], [address] [place] [phone] Notes/Report: Prothrombin Time Whole Bld POC 37.9 11.1-13.5 sec INR WHOLE BLOOD POC Reviewed date:12/21/2023 07:45:27 PM Interpretation: Performing Lab:[facility], [address] [place] [phone] Notes/Report: PT, INR - Anti Coag Clinic 2.6 0.9-1.1 METER #: [id number] INTERNATIONAL NORMALIZED RATIO (INR) REFERENCE RANGES Reference [...] Interpretation: Performing Lab:[facility], [address] [place] [phone] Notes/Report: Prothrombin Time Whole Bld POC 31.8 11.1-13.5 sec Complete Blood Count Auto Di ff Reviewed date:01/01/2024 06:46:31 AM Interpretation: Performing Lab:[facility], [address] [place] [phone] Notes/Report: White Blood Count 6.4 4.8-10.8 X10*3/uL [...] INR Reviewed date:01/01/2024 06:46:32 AM Interpretation: Performing Lab:[address] [phone] Notes/Report: Prothrombin Time 23.4 11.1-13.3 SEC INTERNATIONAL [...] Panel Reviewed date:01/01/2024 06:46:31 AM Interpretation: Performing Lab:[address] [address] Notes/Report: Bilirubin Total 1.0 0.0-1.0 mg/dL Bilirubin Direct 0.3 0.0-0.5 mg/dL Aspartate Amino Transferase 19 5-37 U/L Alanine Aminotransferase 20 0-40 U/L Total Protein 6.9 6.5-8.0 g/dL Albumin Level 4.0 3.5-5.0 g/dL Alkaline Phosphatase 87 39-117 U/L Basic Metabolic Panel Reviewed date:01/01/2024 06:46:31 AM Interpretation: Performing Lab:[facility], [address] [place] [phone] Notes/Report: Sodium 140 135-145 mmol/L Potassium 4.3 [...] Glomerular Filt Rate > 60 NOTE: For -[place]oz[place] individuals, multiply the result by 1.210. Chronic Kidney Disease: Estimated GFR < 60 mL/min/1.73m2 Severe Kidney Disease: Estimated GFR < 15 mL/min/1.73m2 Glucose Random 111 60-115 mg/dL Calcium 9.9 8.4-10.2 mg/dL Troponin-I High Sensitivity Reviewed date:01/01/2024 06:46:32 AM Interpretation: Performing Lab:[facility], [address] [place] [phone] Notes/Report: Troponin-I High Sensitivity 5.8 <3.5-35.0 ng/L [place] high sensitivity Troponin-I results should be used in conjunction with other diagnostic information such as ECG, clinical observations and information, and patient symptoms to aid in the diagnosis of CO. Ethanol Reviewed date:01/01/2024 06:46:31 AM Interpretation: Performing Lab:[facility], [address] [place] [phone] Notes/Report: Ethanol < 10 Serum/plasma ethanol results are to be used for medical/treatment purposes only. UA CC w/rflx Micro + Cult Reviewed date:01/01/2024 06:46:32 AM Interpretation: Performing Lab:[facility], [address] [place] [address] Notes/Report: Urine, Clean Catch Color Urine Yellow Appearance Urine Clear PH 6.5 5.0-9.0 Glucose Urine UA Negative Negative mg/dL Urine Blood Negative Negative Specific [place] - Urine 1.015 1.005-1.025 Urine Protein Negative Neg-Trace mg/dL Urine Ketones Negative Negative mg/dL Nitrite Urine Negative Negative Leukocyte Esterase Urine Negative Negative XR chest 2V Reviewed date:01/01/2024 06:46:32 AM Interpretation: Performing Lab: Notes/Report: [facility] [address] [place] [address] XRay Report Signed Patient: Reji Tony Jr MR#: [id number] : 1945 Acct:[id number] Age/Sex: 78 / M ADM Date: 12/29/23 Loc: .ED Attending Dr: Ordering Physician: Raul Moon MD Date of Service: 12/29/23 Procedure(s): XR chest 2V Accession Number(s): [id number] cc: Chris Walker MD; Raul Moon MD [...] MD in OV> 12/29/232043 DD/ 18 TD/TT: Environmental Field Team Member: [facility] [address] [place] [address] XRay Report Signed Patient: Reji Tony Jr MR#: [id number] : 1945 Acct:[id number] Age/Sex: 78 / M ADM Date: 12/29/23 Loc: HO.ED Attending Dr: Ordering Physician: Raul Moon MD Date of Service: 12/29/23 Procedure(s): XR dexter st 2V Accession Number(s): [id number] cc: Chris Walker MD; Raul Moon MD [...] MD in OV> 12/29/232043 DD/ 18 TD/TT: Environmental Field Team Member: [facility] Troponin-I High Sensitivity Reviewed date:01/01/2024 06:46:31 AM Interpretation: Performing Lab:[facility], [address] [place] [phone] Notes/Report: Troponin-I High Sensitivity 6.4 <3.5-35.0 ng/L [place] high sensitivity Troponin-I results should be used in conjunction with other diagnostic information such as ECG, clinical observations and information, and patient symptoms to aid in the diagnosis of CO. INR WHOLE BLOOD POC Reviewed date:01/09/2024 01:09:03 PM Interpretation: Performing Lab:[facility], [address] [place] [phone] Notes/Report: PT, INR - Anti Coag Clinic 2.4 0.9-1.1 METER #: [id number] INTERNATIONAL NORMALIZED RATIO (INR) REFERENCE RANGES Reference [...] Interpretation: Performing Lab:[facility], [address] [place] [phone] Notes/Report: Prothrombin Time Whole Bld POC 28.7 11.1-13.5 sec INR WHOLE BLOOD POC Reviewed date:01/30/2024 01:23:13 PM Interpretation: Performing Lab:[facility], [address] [place] [phone] Notes/Report: PT, INR - Anti Coag Clinic 2.8 0.9-1.1 METER #: [id number] INTERNATIONAL NORMALIZED RATIO (INR) REFERENCE RANGES Reference [...] Interpretation: Performing Lab:[facility], [address] [place] [phone] Notes/Report: Prothrombin Time Whole Bld POC 33.2 11.1-13.5 sec Complete Blood Count Auto Di ff Reviewed date:02/19/2024 04:13:16 PM Interpretation: Performing Lab:[facility], [address] [place] [phone] Notes/Report: White Blood Count 7.5 4.8-10.8 X10*3/uL [...] Interpretation: Performing Lab:[facility], [address] [place] [phone] Notes/Report: Sodium 135 135-145 mmol/L Potassium 4.4 3.3-5.1 mmol/L Chloride 103 96-108 mmol/L Carbon Dioxide 27 22-29 mmol/L Anion Gap 9 12-20 Blood Urea Nitrogen 11 9-16 mg/dL Creatinine 0.95 0.5-1.4 mg/dL Estimated Glomerular Filt Rate > 60 NOTE: For -[place] individuals, multiply the result by 1.210. Chronic [...] Panel Reviewed date:02/19/2024 04:13:16 PM Interpretation: Performing Lab:[address] [address] Notes/Report: Triglycerides 133 <150 mg/dL Desirable Triglyceride: [...] Interpretation: Performing Lab:[facility], [address] [place] [address] Notes/Report: Prostate Specific Antigen 2.74 <0.05-4.0 ng/mL PSA methodology: [place] Alinity i Chemiluminescent Microparticle Immunoassay (CMIA) Vitamin D 25-OH Total Reviewed date:02/19/2024 04:13:16 PM Interpretation: Performing Lab:[facility], [address] [place] [phone] Notes/Report: Vitamin D 25-OH Total 36.1 >30 [...] POC Reviewed date:02/19/2024 04:13:16 PM Interpretation: Performing Lab:[facility], [address] [place] [phone] Notes/Report: PT, INR - Anti Coag Clinic 2.6 0.9-1.1 METER #: [id number] INTERNATIONAL NORMALIZED RATIO (INR) REFERENCE RANGES Reference [...] Interpretation: Performing Lab:[facility], [address] [place] [phone] Notes/Report: Prothrombin Time Whole Bld POC 30.9 11.1-13.5 sec INR WHOLE BLOOD POC Reviewed date:03/21/2024 07:54:24 PM Interpretation: Performing Lab:[facility], [address] [place] [phone] Notes/Report: PT, INR - Anti Coag Clinic 2.6 0.9-1.1 METER #: [id number] INTERNATIONAL NORMALIZED RATIO (INR) REFERENCE RANGES Reference [...] Interpretation: Performing Lab:[facility], [address] [place] [phone] Notes/Report: Prothrombin Time Whole Bld POC 31.1 11.1-13.5 sec INR WHOLE BLOOD POC Reviewed date:04/21/2024 01:28:43 PM Interpretation: Performing Lab:[facility], [address] [place] [phone] Notes/Report: PT, INR - Anti Coag Clinic 2.2 0.9-1.1 METER #: [id number] INTERNATIONAL NORMALIZED RATIO (INR) REFERENCE RANGES Reference [...] Interpretation: Performing Lab:[facility], [address] [place] [phone] Notes/Report: Prothrombin Time Whole Bld POC 26.7 11.1-13.5 sec INR WHOLE BLOOD POC Reviewed date:05/19/2024 04:52:16 AM Interpretation: Performing Lab:[facility], [address] [place] [phone] Notes/Report: PT, INR - Anti Coag Clinic 2.4 0.9-1.1 METER #: [id number] INTERNATIONAL NORMALIZED RATIO (INR) REFERENCE RANGES Reference [...] Interpretation: Performing Lab:[facility], [address] [place] [phone] Notes/Report: Prothrombin Time Whole Bld POC 28.3 11.1-13.5 sec INR WHOLE BLOOD POC Reviewed date:06/13/2024 08:48:39 PM Interpretation: Performing Lab:[facility], [address] [place] [phone] Notes/Report: PT, INR - Anti Coag Clinic 2.3 0.9-1.1 METER #: [id number] INTERNATIONAL NORMALIZED RATIO (INR) REFERENCE RANGES Reference [...] Prothrombin Time Whole Bld P OC Reviewed date:06/13/2024 08:48:39 PM Interpretation: Performing Lab:[facility], [address] [place] [phone] Notes/Report: Prothrombin Time Whole Bld POC 28.0 11.1-13.5 sec INR WHOLE BLOOD POC Reviewed date:07/22/2024 05:49:38 AM Interpretation: Performing Lab:[address] [phone] Notes/Report: PT, INR - Anti Coag Clinic 2.4 0.9-1.1 METER #: [id number] INTERNATIONAL NORMALIZED RATIO (INR) REFERENCE RANGES Reference [...] Prothrombin Time Whole Bld P OC Reviewed date:07/22/2024 05:49:38 AM Interpretation: Performing Lab:[facility], [address] [place] [phone] Notes/Report: Prothrombin Time Whole Bld POC 29.1 11.1-13.5 sec INR WHOLE BLOOD POC Reviewed date:08/18/2024 08:15:22 PM Interpretation: Performing Lab:[facility], [address] [place] [phone] Notes/Report: PT, INR - Anti Coag Clinic 2.3 0.9-1.1 METER #: [id number] INTERNATIONAL NORMALIZED RATIO (INR) REFERENCE RANGES Reference [...] Prothrombin Time Whole Bld P OC Reviewed date:08/18/2024 08:15:22 PM Interpretation: Performing Lab:[facility], [address] [place] [phone] Notes/Report: Prothrombin Time Whole Bld POC 27.9 11.1-13.5 sec INR WHOLE BLOOD POC (Not yet reviewed by provider) Interpretation: Performing Lab:[facility], [address] [place] [phone] Notes/Report: PT, INR - Anti Coag Clinic 2.0 0.9-1.1 METER #: [id number] INTERNATIONAL NORMALIZED RATIO (INR) REFERENCE RANGES Reference [...] Interpretation: Performing Lab:[facility], [address] [place] [phone] Notes/Report: Prothrombin Time Whole Bld POC 23.8 11.1-13.5 sec XR lumbar spine 2-3V (Not ye t reviewed by provider) Interpretation: Performing Lab: Notes/Report: [address] [address] XRay Report Signed Patient: Reji Tony Jr MR#: [id number] : 1945 Acct:[id number] Age/Sex: 79 / M ADM Date: 09/15/24 Loc: HO.XRAY Attending Dr: Chris Walker MD Ordering Physician: Chris Walker MD Date of Service: 09/15/24 Procedure(s): XR lumbar spine 2-3V Accession Number(s): [id number] cc: Chris Walker MD EXAMINATION: XR LUMBOSACRAL SPINE CLINICAL INFORMATION: LOW BACK PAIN COMPARISON: None available. TECHNIQUE: Three views of the lumbosacral spine. FINDINGS: Syndesmophyte formation and marginal osteophyte formation from T12-L1 to L5-S1. Endplate sclerosis decreased intervertebral disc height and vacuum phenomenon at multiple levels of the axial skeleton. No acute cortical disruption. No gross malalignment. Vascular desiccation's. XR/XR lumbar spine 2-3V IMPRESSION: Multilevel moderate to severe thoracolumbar spondylosis. Seronegative arthritis should be considered. Electronically signed by: Arnoldo Collins MD 09/15/2024 12:49 PM EDT Dictated By: Arnoldo Trinidad MD Signed By: <Electronically signed by Arnoldo Wing MD in OV> 09/15/24 1249 DD/ 1217 TD/TT: 09/15/24 1242 Environmental Field Team Member: [address] [address] XRay Report Signed Patient: Reji Tony Jr MR#: [id number] : 1945 Acct:[id number] Age/Sex: 79 / M ADM Date: 09/15/24 Loc: HO.XRAY Attending Dr: Chris Walker MD Ordering Physician: Chris Walker MD Date of Service: 09/15/24 Procedure(s): XR lumbar spine 2-3V Accession Number(s): [id number] cc: Chris Walker MD EXAMINATION: XR LUMBOSACRAL SPINE CLINICAL INFORMATION: LOW BACK PAIN COMPARISON: None available. TECHNIQUE: Three views of the lumbosacral spine. FINDINGS: Syndesmophyte formation and marginal osteophyte formation from T12-L1 to L5-S1. Endplate sclerosis decreased intervertebral disc height and vacuum phenomenon at multiple levels of the axial skeleton. No acute cortical disruption. No gross malalignment. Vascular desiccation's. XR/XR lumbar spine 2-3V IMPRESSION: Multilevel moderate to severe thoracolumbar spondylosis. Seronegative arthritis should be considered. Electronically jose d by: Arnoldo Collins MD 09/15/2024 12:49 PM EDT RP Dictated By: Arnoldo Grullon MD Signed By: <Electronically signed by Arnoldo Wing MD in OV> 09/15/24 1249 DD/ 1217 TD/TT: 09/15/24 1242 Environmental Field Team Member: Reason For Referral No Information Medications Medication SIG (Take, Route, Frequency, Duration) Notes Start Date End Date Status Warfarin Sodium (2.5 MG) 2.5 MG 2 tablets on Tuesdays, 1 tablet the rest of the other days Active levETIRAcetam 1000 MG s Orally every 12 hrs 2023 Active Omeprazole 20 MG TAKE 1 CAPSULE BY MO UTH EVERY DAY Active Atorvastatin Calcium 40 MG TAKE 1 TABLET BY MOUTH EVERY DAY Active Propranolol HCl ER 60 MG TAKE 1 CAPSULE BY MOUTH EVERY DAY FOR 90 DAYS Active Vitamin D3 25 MCG (1000 UT) TAKE 1 TABLE T BY MOUTH EVERY DAY Active Vitamin B-6 100 MG TAKE 1 TABLET BY CANDI EVERY DAY Oral Active Tamsulosin HCl 0.4 MG TAKE 1 CAPSULE BY MOUTH EVERYDAY AT BEDTIME Oral Active Finasteride 5 MG TAKE 1 TABLET BY CANDI TH EVERY DAY Oral Active Furosemide 20 MG 1 tablet Orally Once a day 06/06/2022 Active Immunizations Vaccine Route Administration Date Status [...] Problem Status W/U Status Risk Notes Problem 5809558 Former smoker (Z87.891) Active confirmed He has a plan to prevent relapse in times of stress and illness. Problem 994101648 Overweight (BMI 25.0-29.9) (E66.3) Active confirmed His body mass index is 28.9. He has gained 7 pounds.We discussed weight reduction strategies. We discussed diet and nutrition. Problem Hypertension (45738479) Hypertension (I10) Active confirmed His blood pressure today is normal. No change in his regimen was made. Problem 701154718 Seizure disorder (G40.909) Active confirmed Problem Vitamin D deficiency (48274769) Vitamin D deficiency, unspecified (E55.9) Active confirmed He was continued on vitamin D supplements. Problem 923725635 GERD without esophagitis (K21.9) Active confirmed There is esophageal reflux is well controlled with [id number] r medication. Problem 253417629 Anticoagulated (Z79.01) Active confirmed He has had no bleeding since his last visit. He is compliant with his anticoagulation . Problem 895775446 Pulmonary nodule (R91.1) Active confirmed This nodule w as 8 mm in the right lower lobe and was PET negative in 2022. He is due for another CT scan of the chest to follow up. Problem Hyperlipidaemia (51360223) Hyperlipemia (E78.5) Active confirmed No current values are available. A fasting lipid profile has been ordered prior to his next visit. Problem 481619742 Primary osteoarthritis of both knees (M17.0) Active confirmed He has had one knee replacement which is functioning well. He has mild pain in the opposite knee. He will continue on his current regimen. The pain in his knees remains the same but he can conduct all of the activities of daily life. He will see the orthopedist regularly. Problem 930362324 Coronary artery disease involving [place] coronary artery of [place] heart without angina pectoris (I25.10) Active confirmed He denies any recent chest pain. He was evaluated for coronary syndrome, May 25, 2022 in the emergency room with negative results. Problem 0455090639010 Benign prostatic hyperplasia with lower urinary tract symptoms (N40.1) Active confirmed He rises from sleep once or twice a night to urinate. We have discussed lifestyle modifications that could reduce nocturia. He remains under the care of urology for his kidney stones. Problem 60984802 Reactive depression (F32.9) Active confirmed He feels that his depression is worse through the winter. We will help him get in touch with the mental health provider Problem 902834369 Adenomatous polyp of colon, unspecified part of colon (D12.6) Active confirmed He will continue to have colonoscopies as needed. Problem 66521310 Closed fracture of multiple ribs of left side, initial encounter (S22.42XA) Active confirmed He has 3 rib fractures are recent fall. He will continue current therapy until the pain resolves. Problem [id number] Carpal tunnel syndrome on both sides (G56.03) Active confirmed He reports having carpal tunnel syndrome. He has an appointment with a hand surgeon next month. I have taken his history today and examined him. I have reviewed his blood work and EKG. He is medically cleared to undergo the surgery. The risk is minimal at the benefit is great. Problem 281304898 Nonrheumatic mitral valve regurgitation (I34.0) Active confirmed The mitral regurgitation has been documented on an echocardiogram and is mild and asymptomatic. He is free of dyspnea with exertion. A murmur was not heard on auscultation today. Problem 117682807 Chronic atrial fibrillation (I48.20) Active confirmed He is in a controlled atrial fibrillation today. His heart rate is unremarkable. Problem 537822273 Hoarding disorder with excessive acquisition (F42.3) Active confirmed Vital Signs Heart Rate 75 /min 07/30/2024 Temperature 98.2 degrees Fahrenheit 07/30/2024 Blood pressure diastolic 83 mm Hg 07/30/2024 Height 67 in 07/30/2024 Blood pressure systolic 128 mm Hg 07/30/2024 Weight 185 lbs 07/30/2024 BMI 28.97 kg/m2 07/30/2024 Encounters Encounter Location Date Provider Diagnosis Chris Walker III, MD [address] [place] [address] [place] [address] 10/05/2023 Chris Walker Hypertension I10 ; Seizure R56.9 ; Hyperlipemia E78.5 ; Benign prostatic hyperplasia with lower urinary tract symptoms N40.1 ; Reactive depression F32.9 ; Overweight (BMI 25.0-29.9) E66.3 ; Primary osteoarthritis of both knees M17.0 ; Elevated PSA R97.20 ; Coronary artery disease involving [place] coronary artery of [place] heart without angina pectoris I25.10 ; Nonrheumatic mitral valve regurgitation I34.0 ; Chronic atrial fibrillation I48.20 ; GERD without esophagitis K21.9 ; Carpal tunnel syndrome on both sides G56.03 and Former smoker Z87.891 Chris Walker III, MD [address] [place] [address] [place] [address] 12/03/2023 Chris Walker Hypertension I10 ; Hyperlipemia E78.5 ; Overweight (BMI 25.0-29.9) E66.3 ; Coronary artery disease involving [place] coronary artery of [place] heart without angina pectoris I25.10 ; Benign prostatic hyperplasia with lower urinary tract symptoms N40.1 ; GERD without esophagitis K21.9 ; Nonrheumatic mitral valve regurgitation I34.0 and Former smoker Z87.891 Chris Walker III, MD [address] [place] [address] [place] [address] 01/01/2024 Chris Walker Hypertension I10 ; Benign prostatic hyperplasia with lower urinary tract symptoms N40.1 ; Hyperlipemia E78.5 ; Overweight (BMI 25.0-29.9) E66.3 ; Reactive depression F32.9 ; Nonrheumatic mitral valve regurgitation I34.0 ; Coronary artery disease involving [place] coronary artery of [place] heart without angina pectoris I25.10 ; Primary osteoarthritis of both knees M17.0 ; Chronic atrial fibrillation I48.20 ; Anticoagulated Z79.01 and 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 Chris Walker III, MD [address] [place] [address] [place] [address] 01/09/2024 Chris Walker Hypertension I10 ; Syncope, unspecified syncope type R55 ; Benign prostatic hyperplasia with lower urinary tract symptoms N40.1 ; Reactive depression F32.9 ; Overweight (BMI 25.0-29.9) E66.3 ; Nonrheumatic mitral valve regurgitation I34.0 ; Chronic atrial fibrillation I48.20 and Former smoker Z87.891 Chris Walker III, MD [address] [place] [address] [place] [address] 02/06/2024 Chris Walker Hypertension I10 ; Hyperlipemia E78.5 ; Benign prostatic hyperplasia with lower urinary tract symptoms N40.1 ; Overweight (BMI 25.0-29.9) E66.3 ; Nonrheumatic mitral valve regurgitation I34.0 ; Coronary artery disease involving [place] coronary artery of [place] heart without angina pectoris I25.10 ; Primary osteoarthritis of both knees M17.0 ; Carpal tunnel syndrome on both sides G56.03 ; Anticoagulated Z79.01 ; Chronic atrial fibrillation I48.20 and Former smoker Z87.891 Chris Walker III, MD [address] [place] [address] [place] [address] 03/05/2024 Chris Walker Hypertension I10 ; Hyperlipemia E78.5 ; Benign prostatic hyperplasia with lower urinary tract symptoms N40.1 ; Overweight (BMI 25.0-29.9) E66.3 ; Nonrheumatic mitral valve regurgitation I34.0 ; Coronary artery disease involving [place] coronary artery of [place] heart without angina pectoris I25.10 ; Primary osteoarthritis of both knees M17.0 ; Anticoagulated Z79.01 ; Chronic atrial fibrillation I48.20 and Former smoker Z87.891 Chris Walker III, MD [address] [place] [address] [place] [address] 04/30/2024 Chris Walker Hypertension I10 ; Coronary artery disease involving [place] coronary artery of [place] heart without angina pectoris I25.10 ; Overweight (BMI 25.0-29.9) E66.3 ; Benign prostatic hyperplasia with lower urinary tract symptoms N40.1 ; Primary osteoarthritis of both knees M17.0 ; Reactive depression F32.9 ; Former smoker Z87.891 and Nonrheumatic mitral valve regurgitation I34.0 Chris Walker III, MD [address] [place] [address] [place] [address] 07/30/2024 Chris Walker Hypertension I10 ; Benign prostatic hyperplasia with lower urinary tract symptoms N40.1 ; Hyperlipemia E78.5 ; Vitamin D deficiency, unspecified E55.9 ; Reactive depression F32.9 ; Overweight (BMI 25.0-29.9) E66.3 ; Primary osteoarthritis of both knees M17.0 ; Coronary artery disease involving [place] coronary artery of [place] heart without angina pectoris I25.10 ; Adenomatous polyp of colon, unspecified part of colon D12.6 ; Nonrheumatic mitral valve regurgitation I34.0 and Pulmonary nodule R91.1 Chris Walker III, MD [address] [place] [address] [place] [address] 01/01/2024 Chris Walker III, MD [address] [place] [address] [place] [address] 01/11/2024 Chris Walker III, MD [address] [place] [address] [place] [address] 01/17/2024 Chris Walker III, MD [address] [place] [address] [place] [address] 03/27/2024 Chris Walker III, MD [address] [place] [address] [place] [address] 03/28/2024 Chris Walker III, MD [address] [place] [address] [place] [address] 07/03/2024 Chris Walker III, MD [address] [place] [address] [place] [address] 08/06/2024 Chris Walker Assessments Encounter Date Diagnosis (ICD Code) Assessment Notes Treat ment Notes Treatment Clinical Notes 10/05/2023 Hypertension (ICD-10 - I10) His blood [...] was made. 04/30/2024 Coronary artery disease involving [place] coronary artery of [place] heart without angina pectoris (ICD-10 - I25.10) He denies any recent chest pain. He was evaluated for coronary syndrome, May 25, 2022 in the emergency room with negative results. 07/30/2024 Hypertension (ICD-10 - I10) His blood pressure today is normal. No change in his regimen was made. 07/30/2024 Benign prostatic hyperplasia with lower urinary tract symptoms (ICD-10 - N40.1) He rises from sleep once or twice a night to urinate. We have discussed lifestyle modifications that could reduce nocturia. He remains under the care of urology for his kidney stones. 10/05/2023 Hyperlipemia (ICD-10 - E78.5) The current [...] strategies. We discussed diet and nutrition. 07/30/2024 Hyperlipemia (ICD-10 - E78.5) No current values are available. A fasting lipid profile has been ordered prior to his next visit. 10/05/2023 Benign prostatic hyperplasia with lower urinary tract symptoms (ICD-10 - N40.1) He arises from sleep once or twice a night to urinate. We have discussed lifestyle modification and fluid restriction as a way to reduce nocturia. 12/03/2023 Coronary artery disease involving [place] coronary artery of [place] heart without angina pectoris (ICD-10 - I25.10) [...] modification as a way to reduce nocturia. 07/30/2024 Vitamin D deficiency, unspecified (ICD-10 - E55.9) He was continued on vitamin D supplements. 10/05/2023 Reactive depression (ICD-10 - F32.9) He [...] He will see the orthopedist regularly. 07/30/2024 Reactive depression (ICD-10 - F32.9) He feels that his depression is worse through the winter. We will help him get in touch with the mental health provider 10/05/2023 Overweight (BMI 25.0-29.9) (ICD-10 - E66.3) He is slightly ovverweight. We discussed diet and nutrition today. I recommended he lose 5 pounds with diet restricted in fat calories and sodium. 12/03/2023 GERD without esophagitis (ICD-10 - K21.9) There is esophageal reflux is well controlled with zpec-ezj-riepugf medication. 01/01/2024 Nonrheumatic mitral valve regurgitation (ICD-10 [...] auscultation today. 02/06/2024 Coronary artery disease involving [place] coronary artery of [place] heart without angina pectoris (ICD-10 - I25.10) He denies any recent chest pain. He was evaluated for coronary syndrome, May 25, 2022 in the emergency room with negative results. 03/05/2024 Coronary artery disease involving [place] coronary artery of [place] heart without angina pectoris (ICD-10 - I25.10) [...] reduction strategies. We discussed diet and nutrition. 10/05/2023 Primary osteoarthritis of both knees (ICD-10 [...] auscultation today. 01/01/2024 Coronary artery disease involving [place] coronary artery of [place] heart without angina pectoris (ICD-10 - I25.10) [...] relapse in times of stress and illness. 07/30/2024 Primary osteoarthritis of both knees (ICD-10 - M17.0) He has had one knee replacement which is functioning well. He has mild pain in the opposite knee. He will continue on his current regimen. The pain in his knees remains the same but he can conduct all of the activities of daily life. He will see the orthopedist regularly. 10/05/2023 Elevated PSA (ICD-10 - R97.20) A [...] was not heard on auscultation today. 07/30/2024 Coronary artery disease involving [place] coronary artery of [place] heart without angina pectoris (ICD-10 - I25.10) He denies any recent chest pain. He was evaluated for coronary syndrome, May 25, 2022 in the emergency room with negative results. 10/05/2023 Coronary artery disease involving [place] coronary artery of [place] heart without angina pectoris (ICD-10 - I25.10) [...] fibrillation today. His heart rate is unremarkable. 07/30/2024 Adenomatous polyp of colon, unspecified part of colon (ICD-10 - D12.6) He will continue to have colonoscopies as needed. 10/05/2023 Nonrheumatic mitral valve regurgitation (ICD-10 - [...] relapse in times of stress and illness. 07/30/2024 Nonrheumatic mitral valve regurgitation (ICD-10 - I34.0) The mitral regurgitation has been documented on an echocardiogram and is mild and asymptomatic. He is free of dyspnea with exertion. A murmur was not heard on auscultation today. 10/05/2023 Chronic atrial fibrillation (ICD-10 - I48.20) [...] relapse in times of stress and illness. 07/30/2024 Pulmonary nodule (ICD-10 - R91.1) This nodule was 8 mm in the right lower lobe and was PET negative in 2022. He is due for another CT scan of the chest to follow up. 10/05/2023 GERD without esophagitis (ICD-10 - K21.9) There is esophageal reflux is well controlled with mzlz-hdx-wkwocto medication. 10/05/2023 Carpal tunnel syndrome on both [...] C) 02/21/2022 PROFILE, FASTING (COMPREHENSIVE METABOLI C) 10/25/2021 PROFILE, FASTING (COMPREHENSIVE METABOLI C) 05/25/2023 PROFILE, FASTING (COMPREHENSIVE METABOLI C) 07/30/2024 PROFILE, FASTING (COMPREHENSIVE METABOLI C) 02/06/2024 PROFILE, FASTING (COMPREHENSIVE METABOLI C) 02/23/2023 PROFILE, FASTING (COMPREHENSIVE METABOLI C) 12/03/2023 PROFILE, FASTING (COMPREHENSIVE METABOLI C) 10/05/2023 PROFILE, RANDOM (COMPREHENSIVE METABOLIC ) 06/19/2022 LIPID PANEL 02/23/2023 LIPID PANEL 06/19/2022 PSA, TOTAL 06/19/2022 PSA, TOTAL 02/21/2022 PSA, TOTAL 10/25/2021 PSA, TOTAL 07/30/2024 PSA, TOTAL 02/06/2024 PSA, TOTAL 02/23/2023 PSA, TOTAL 10/05/2023 CBC w DIFF 02/23/2023 CBC w DIFF 06/19/2022 CBC w DIFF 02/21/2022 CBC w DIFF 10/25/2021 VITAMIN D 25-OH TOTAL 10/05/2023 VITAMIN D 25-OH TOTAL 10/25/2021 CBC WITH AUTO DIFF 10/05/2023 CBC WITH AUTO DIFF 05/25/2023 CBC WITH AUTO DIFF 07/30/2024 CBC WITH AUTO DIFF 02/06/2024 CBC WITH AUTO DIFF 12/03/2023 Lipid Panel 12/03/2023 Lipid Panel 10/05/2023 Lipid Panel 05/25/2023 Lipid Panel 07/30/2024 Lipid Panel 02/06/2024 Lipid Panel 10/25/2021 Vitamin D 25-OH Total 02/06/2024 Vitamin D 25-OH Total 07/30/2024 INR WHOLE BLOOD POC 09/15/2024 Prothrombin Time Whole Bld POC XR lumbar spine 2-3V 07/30/2024 XR lumbar spine 2-3V 09/15/2024 Next Appt Details Provider Name:Chris Walker, 10/01/2024 02:00:00 PM, [address] [place] [address] [address], [place], [address], Provider Name:Chris Walker, 12/03/2024 04:00:00 PM, [address] [place] [address] [address], [place], [address], Insurance Providers Payer Name Payer Address Payer Phone Subscriber Number Group Number Insured Name Patient Relationship to Insured Coverage Start Date Coverage End Date [facility] [address] [place] [phone] [id number] Reji Tony Self - patient is the insured MEDICARE NGS [address] [place] [phone] [id number] Reji Tony Self - patient is the insured Medical (General) History Medical History History ICD Code BPH (benign prostatic hyperplasia) N40.0 HTN (hypertension) I10 Anxiety F41.9 Depression F32.9 overweight hyperlipidemia osteoarthritis both knees right 11th rib fracture 04/2020 bilateral rotator cuff tears 8 mm pulmonary nodule, RLL, PET negative 2022 inferior and lateral cardiac ischemia [facility] [address] Dr. Tapia tubular adenoma 1988 colonoscopy mild mitral regurgitation GERD ureterolithiasis hemangiopericytoma right knee 1994 recent weight loss 45 pounds former smoker Rib fractures, left sided May 123. 5 mm ureteral stone, left hydronephrosis cataracts glaucoma Atrial fibrillation, Seizure s, Mitral valve regurgitation, Coronary artery disease, Emphysema, Cataracts, Glaucoma Surgical History Surgery Date(Month/Year) laser prostatectomy Dr. To 2017 history of suprapubic catheter insertion right total knee replacement colonoscopy tubular adenoma Dr. Angulo no 1988 colonoscopy [facility] 2019 appendectomy Past surgery on right knee No history Hospitalization History Reason Date(Month/Year) Altered mental state, Seizure and Afib 0 02/2022 COVID 04/2022 No history
== END 2024-09-15 13:56 | disposition home or self-care (01) ==
LOC: HO.ACS 13:46
PROVIDERS: PCP Internal Medicine Medical Oncology; Visit Provider Internal Medicine Medical Oncology
DX: Z79.01 Long term (current) use of anticoagulants (principal)

== ENCOUNTER 2024-09-22 08:54 | Outpatient (REF) | payer MEDICARE, SELFPAY ==
[2024-09-22 09:08] LABS: MANUAL DIFF FLAG NO
[2024-09-22 09:26] LABS: Basophils Absolute Auto 0.1 X10*3/uL (0.0-0.2); Basophils Percent Auto 0.8 % (0-2); Eosinophils Absolute Auto 0.5 X10*3/uL (0.0-0.4); Eosinophils Percent Auto 8.5 % (0-4); Hematocrit 40.9 % (42.0-52.0); Hemoglobin 13.8 g/dl (14.0-18.0); Imm Gran Abs Auto 0.01 X10*3/uL (0.00-0.03); Imm Gran Pct Auto 0.2 % (0.0-0.4); Lymphocytes Absolute Auto 1.1 X10*3/uL (1.2-4.9); Lymphocytes Percent Auto 16.8 % (20-40); Mean Corpuscular HGB Conc 33.7 g/dl (31.0-36.0); Mean Corpuscular Hemoglobin 29.3 pg (27.0-33.0); Mean Corpuscular Volume 86.8 fL (80.0-98.0); Mean Platelet Volume 9.5 fL (9.4-12.4); Monocytes Absolute Auto 0.6 X10*3/uL (0.1-1.2); Monocytes Percent Auto 9.9 % (2-11); Neutrophils Percent Auto 63.8 % (45-73); Platelet Count 257 X10*3/uL (160-400); Red Blood Count 4.71 X10*6/uL (4.60-5.80); Red Cell Distribution Width 12.5 % (11.0-16.0); White Blood Count 6.3 X10*3/uL (4.8-10.8)
--- OUTSIDE RECORDS SUMMARY | 2024-09-22 09:44 | XMS_ITS | Encounter Summary ---
Author Name [facility] [facility] Address [address] [place] [id number] Care Team Providers Care Wastewater Engineer Name Role Phone SUNIL MONSIVAIS Primary Care [...] Amaya's Name Patient's Relationship to Policy [facility] (WNR) MEDICARE ADVANTAGE [facility] Jun 11, 2023 [id number] SANDRA LIU PATIENT Selected Encounter This section includes the information on record at [place] for the Encounter. Date/Time Encounter Type Encounter [...] forms of age-related cataract, bilateral GALVAN,MINH J [place] [facility] [place] [facility] Jul 08, 2024 03:21 PM SECONDARY Open angle with borderline findings, high risk, bilateral MINH GALVAN [facility] Jul 08, 2024 03:21 PM SECONDARY Presbyopia MINH GALVAN [facility] Jul 08, 2024 03:21 PM SECONDARY Unspecified retinal break, left eye MINH GALVAN [facility] Plan of Treatment: Future Appointments (+ 6 months) and Future Tests (+/- 45 days) The Plan of Treatment section includes future care activities for the patient from all [place] [facility] This section includes future appointments and future orders which are active, pending or scheduled. Future Appointments This section includes appointments that were scheduled to occur 6 months from the date of the Encounter, up to a maximum of 20 appointments. The data comes from all [place] treatment facilities. Appointment Date/Time Appointment Type Appointme nt Facility Name October 10, 2024 12:30 PM AMBULATORY - MEDICINE [facility] October 10, 2024 01:00 PM AMBULATORY MEDICINE [facility] Dec 10, 2024 01:30 PM AMBULATORY - MEDICINE [facility] Social History: Smoking Status (Most current) and Tobacco Use (All prior to encounter date) This section includes the most current, and the historical, smoking and tobacco- related health factors from the [place] facility where the Encounter took place. Current Smoking Status This section includes the most current smoking, or tobacco-related health factor, from the [place] facility where the Encounter took place. Date/Time Current Smoking Status Comment Facil ity November 06, 2023 10:34 AM VA-TOBACCO FORMER USER [facility] Tobacco Use History This section includes a history of the smoking, or tobacco-related health factors, that were collected on or before the date of the Encounter. The data comes from the [place] facility where the Encounter took place. Date/Time Smoking Status/Tobacco Use Comment F acility November 06, 2023 10:34 AM [place]-TOBACCO QUIT 15 YRS OR MORE [facility] Advance Directives: All historical and current Section Date Range: From patient's date of to the date document was created. This section includes ALL of a patient's completed or amended VA Advance and Rescinded Directives. The entries below indicate that a directive exists for the patient, but an actual copy is not included with this document. The data comes from all [place] facilities. Date Advance Directives Provider Source Dec 05, 2023 ADVANCE DIRECTIVE DELIA DEL VALLE [place] [facility] [place] [facility] Encounter Notes: All associated encounter notes This [...] Reason for Visit/CC: Patient here for CEE. Mesick reports his eye have gotten worse. Reports most recent glasses were from summer 2023 and feels vision changed since then. Mesick is aware he has cataracts and curious [...] (-) Blindness MHx: Code Description Z87.891 Ex-smoker ([facility] [id number]) E66.3 Overweight ([facility] [id number]) K21.9 Gastroesophageal reflux disease without esophagitis ([facility] [id number]) Z92.29 H/O: anticoagulant therapy ([facility] [id number]) R91.1 Solitary nodule of lung ([facility] [id number]) E78.5 Hyperlipidemia ([facility] [id number]) M17.0 Bilateral osteoarthritis of knees ([facility] [id number]) I25.10 Coronary arteriosclerosis ([facility] [id number]) N40.0 Benign prostatic hyperplasia ([facility] [id number]) R97.20 Prostate specific antigen above reference range ([facility] [id number]) F32.A Reactive depression (situational) ([facility] [id number]) D12.6 Adenomatous polyp of colon ([facility] [id number]) R69. Closed fracture of multiple ribs ([facility] [id number]) I34.0 Mitral valve regurgitation ([facility] [id number]) G56.03 Bilateral carpal tunnel syndrome ([facility] [id number]) I48.20 Chronic atrial fibrillation ([facility] [id number]) R56.9 Seizure ([facility] [id number]) F41.9 Anxiety ([facility] [id number]) SYSTEMIC MEDICATIONS/OCULAR MEDICATIONS: Active Outpatient Medications (including [...] ~1989 Current Rx with last BCVA: OD: +0.50-1.76d213 OS: +1.00-1.36x838 Add: +3.00 DVA ( )sc ( x )cc - [x]phoropter []specs []CL OD: 20/40-1 OS: 20/20-2 Entrance Testing: Pupil: PERRL (-)APD EOM: SAFE OU, (-)Pain/Diplopia CVF: FTFC OU Subjective Refraction: OD: +1.50-2.19p107 20/25+2 OS: +0.75-0.03z715 20/20 Add: +2.75 *Trial framed and very [...] and intact (-)holes, tears, detachments 360 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 -Stress importance of continued follow-up appointments -Mesick repeated back the plan and education. -RTC 3 months for visual imaging and IOP check 3. Peripheral retinal hole OS - well-pigmented without indication for treatment -Pt ed re today's findings -Mesick repeated back the plan and education. -Monitor [...] this VA (local) and dispensed from another [place] or [facility] facility (remote) as well as inpatient [...] this VA (local) and dispensed from another [place] or [facility] facility (remote) as well as inpatient orders (local pending and active), local clinic medications, locally documented non-VA medications, and local prescriptions that have or been discontinued in the past 90 days. Non-VA Meds Last Documented On: Dec 05, 2023 NOTE The display of VA prescriptions dispensed from another [place] or [facility] facility (remote) is limited to active outpatient prescription entries matched to National Drug File at the originating site and may not include some items such as investigational drugs, compounds, etc. NOT INCLUDED IN THIS LIST: Medications self-entered by the patient into personal health records (i.e. [employer]) are NOT included in this list. Non-VA medications documented outside this [place], remote inpatient orders (regardless of status) and [...] TERMS AND POSSIBLE PATIENT ACTIONS INPT = [place] inpatient order IV = [place] intravenous medication OUTPT = [place] outpatient prescription PHARMACY POSSIBLE PATIENT TERMS EXPLANATION ACTIONS -------- ---- ACTIVE A prescription that can be If you have refills, filled at the local [place] pharmacy. you may request a refill of this prescription from your [place] pharmacy. CLINIC A medication you received during If you have questions a visit to a [place] clinic or about this medication emergency department. contact your [place] healthcare team. DISCONTINUED A prescription your provider has Contact your VA stopped. It is no longer healthcare team if you available to be sent to you or need more of this picked up at the [place] pharmacy medication. window. A prescription which is [...] the VA. Or, it may be an kgak-zvi-dkdczed (OTC), herbal, dietary supplements or sample medication. 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
--- OUTSIDE RECORDS SUMMARY | 2024-09-22 09:44 | XMS_ITS ---
Author Name [facility] [place] Organization [facility] [place] Address [address] [place] [id number] Care Team Providers Care Lapping Machine Set Up Operator Name Role Phone SUNIL MONSIVAIS Primary [...] Amaya's Name Patient's Relationship to Policy Amaya [facility] (WNR) MEDICARE ADVANTAGE [facility] Jun 11, 2023 [id number] SANDRA LIU PATIENT Selected Encounter This section includes the information on record at [place] for the Encounter. Date/Time Encounter Type Encounter Description Reason Provider Source Dec 05, 2023 02:00 PM OFFICE O/P EST MOD 30 MIN PRIMARY CARE/MEDICINE ICD-10-CM K21.9 Gastro-esophageal reflux disease without esophagitis SUNIL MONSIVAIS [facility] Encounter Template Text not used by [place] Assessments - Encounter Diagnoses This section includes the primary and secondary diagnoses documented for the Encounter. Date/Time Primary/Secondary Diagnosis Diagnosis Name Provider Source Dec 05, 2023 03:14 PM PRIMARY Gastro-esophageal reflux disease without esophagitis SUNIL MONSIVAIS [facility] Dec 05, 2023 03:14 PM SECONDARY Anxiety disorder, unspecified LOI,SUNIL FINCH [facility] [place] [facility] Dec 05, 2023 03:14 PM SECONDARY Benign prostatic hyperplasia without lower urinry tract symp LOI,SUNIL HUBBARDNE [facility] [place] [facility] Dec 05, 2023 03:14 PM SECONDARY Bilateral primary osteoarthritis of knee LOI,SUNIL STEF [facility] [place] [facility] Dec 05, 2023 03:14 PM SECONDARY Chronic atrial fibrillation, unspecified LOI,SUNIL STEF [facility] [place] [facility] Dec 05, 2023 03:14 PM SECONDARY Depression, unspecified LOI,SUNIL STEF [facility] [place] [facility] Dec 05, 2023 03:14 PM SECONDARY Hyperlipidemia, unspecified LOI,SUNIL STEF [facility] [place] [facility] Dec 05, 2023 03:14 PM SECONDARY Solitary pulmonary nodule LOI,SUNIL STEF [facility] [place] [facility] Dec 05, 2023 03:14 PM SECONDARY Unspecified convulsions LOI,SUNIL HUBBARDNE [facility] [place] [facility] Vital Signs: All taken on the encounter date This section contains inpatient and outpatient Vital Signs collected on the date of the Encounter. Date/Time Temperature Pulse Blood Pressure Respiratory Rate SP02 Pain Height Weight Body Mass Index Source Dec 05, 2023 02:24 PM 98.3 70 100/62 16 95 70 175 25 [place] [facility] [place] [facility] Social History: Smoking Status (Most current) and Tobacco Use (All prior to encounter date) This section includes the most current, and the historical, smoking and tobacco- related health factors from the [place] facility where the Encounter took place. Current Smoking Status This section includes the most current smoking, or tobacco-related health factor, from the [place] facility where the Encounter took place. Date/Time Current Smoking Status Comment Facil itNovember 06, 2023 10:34 AM VA-TOBACCO FORMER USER [facility] [place] [facility] Tobacco Use History This section includes a history of the smoking, or tobacco-related health factors, that were collected on or before the date of the Encounter. The data comes from the [place] facility where the Encounter took place. Date/Time Smoking Status/Tobacco Use Comment F acility November 06, 2023 10:34 AM [place]-TOBACCO QUIT 15 YRS OR MORE [facility] Advance Directives: All historical and current Section Date Range: From patient's date of to the date document was created. This section includes ALL of a patient's completed or amended [place] Advance and Rescinded Directives. The entries below indicate that a directive exists for the patient, but an actual copy is not included with this document. The data comes from all [place] facilities. 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 The workup continues has EEG (he thinks ) at [facility] next week, workup ongoing Chronic atrial fibrillation is anticoagulated on warfarin, Nonrheumatic mitral valve regurgitation- The mitral regurgitation has been documented on an echocardiogram and is mild and asymptomatic. He is free of dyspnea with exertion. He no longer sees rn lvn He likely is on propranolol for rate [...] he is not sure why CAD involving shoshone[place]bann[place] coronary artery of shoshone-bannock heart without angina pectoris osteoarthritis bilateral knees- Had right TKR x2 he manages with mild activity he thinks he might need a walker Benign prostatic hyperplasia with lower urinary tract symptoms also with elevated PSA increased from about 1 to 4 and apparently referred to Urology Depression Follows with Dr Locke in the [facility], takes propranolol 60mg daily, he would like to stay with her for now Past Medical History: Active problems - Computerized Problem List is the source for the followin. Ex-smoker 2. Overweight 3. Hypertensive disorder 4. Gastroesophageal reflux disease without esophagitis 5. H/O: anticoagulant therapy 6. Solitary nodule of lung 7. Hyperlipidemia 8. Bilateral osteoarthritis of knees 9. Coronary arteriosclerosis involving shoshone-bannock coronary artery of shoshone-bannock heart without angina pectoris 10. Benign prostatic [...] Depression Follows with Dr Locke in the [facility], takes propranolol 60mg daily, he would [...] plan and education was reviewed with the and she verbalized understanding. 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 [place] has no concerns about toxic exposure(s) while [...] of active outpatient prescriptions dispensed from this [place] (local) and dispensed from another VA or [...] Nurse Practitioner Signed: 12/05/2023 15:13 SUNIL MONSIVAIS [place] [facility] [place] [place] [facility] Dec 05, 2023 01:58 PM PREVENTIVE [...] REGISTERED NURSE Signed: 12/05/2023 14:28 RAMU POPE [facility]
--- OUTSIDE RECORDS SUMMARY | 2024-09-22 09:44 | XMS_ITS | Continuity of Care Document ---
Author Name [facility] Organization [facility] Care Team Providers Care Academic Manager Name Role Phone [facility] Unavailable Unavailable Problems Combined list of problems [...] 05 Entered By: SOFIA BLISS Comment: involving [place] coronary artery of [place] heart without angina pectoris [facility] [...] will be referred to urology for evaluation. [facility] [place] [facility] Reactive depression (situational) Active Condition November 06, 2023 Entered By: SOFIA BLISS Comment: He feels that his depression is worse through the winter. We will help him get in touch with the mental health provider [facility] Seizure Active Condition [facility] [place] [facility] Solitary nodule of lung Active Condition [facility] [place] [facility] Diagnosis: ICD-10-CM Z46.0 Encounter for fit/adjst of spectacles and contact lenses Active Diagnosis [facility] [place] [facility] Diagnosis: ICD-10-CM H25.813 Combined forms of age-related cataract, bilateral [facility] [place] [facility] Diagnosis: ICD-10-CM K21.9 Gastro-esophageal reflux disease without esophagitis Active [facility] Medications Combined list of outpatient [...] DAILY ORAL ACTIVE LOI, SUNIL STEF 2023 [facility] CHOLECALCIF SARAHY 50MCG (2,000UNIT) TAB TAKE ONE TABLET BY MOUTH ONCE DAILY ORAL ACTIVE LOI, SUNIL STEF 2023 [facility] FINASTERIDE 5MG TAB TAKE ONE TABLET BY MOUTH ONCE DAILY ORAL ACTIVE LOI, SUNIL STEF 2023 [facility] FUROSEMIDE 20MG TAB TAKE ONE TABLET BY MOUTH ONCE DAILY ORAL ACTIVE LOI, SUNIL STEF 2023 [facility] OMEPRAZOLE 20MG CAP,EC TAKE 1 CAPSULE BY MOUTH EVERY MORNING 30 MINUTES BEFORE BREAKFAS T ORAL ACTIVE LOI, SUNIL PILGER 2023 [facility] PAROXETINE HCL 30MG TAB TAKE ONE TABLET BY MOUTH ONCE DAILY ORAL ACTIVE LOI, [facility] 2023 [facility] PROPRANOLOL HCL 40MG TAB TAKE 1.5 TABLETS BY MOUTH ONCE DAILY ORAL ACTIVE LOI, SUNIL PILGER 2023 [facility] TAMSULOSIN HCL 0.4MG CAP TAKE 1 CAPSULE BY MOUTH ONCE DAILY ORAL ACTIVE LOI, [facility] 2023 [facility] WARFARIN (NON-VA) TAB TAKE 2.5 BY MOUTH ONCE DAILY ORAL ACTIVE LOI, [facility] 2023 [facility] Allergies, Adverse Reactions, Alerts Combined list of allergies from Department of Defense and Veterans Affairs facilities. It does not include entries that were removed or entered in error. Substance Category Reaction Severity Reaction type Status Date Reported Comments Source INDOMETHACIN Propensity to adverse reactions to drug (finding) active 4 [facility] OXYCODONE HCL 5MG TABLET Propensity to adverse reactions to drug (finding) active 4 [facility] SULFAMETHOXAZ OLE Propensity to adverse reactions to drug (finding) active 4 [facility] Immunizations Combined list of available immunizations from the Department of [facility] and [facility] facilities. Immunization Series Date Given Administered By Site Reaction Lot Number CVX Code Drug Building Mechanic Status Comments Source INFLUENZA, UNSPECIFIED FORMULATION 2022 88 complet ed HISTORICA L INFORMATI ON - FROM OTHER REGISTRY, [facility] TDAP 2020 115 complet ed HISTORICA L INFORMATI ON - FROM OTHER [facility], [facility] PNEUMOCOCCAL POLYSACCHARID E PPV23 2017 33 complet ed HISTORICA L INFORMATI ON - FROM OTHER REGISTRY, [facility] [place] PNEUMOCOCCAL CONJUGATE PCV 13 2015 133 complet ed HISTORICA L INFORMATI ON - FROM OTHER REGISTRY, [facility] [place] Vital Signs Combined list of inpatient and [...] included; 2) Encounters from the Department of [facility] facilities going backup to 280 months. Location Location Details Encounter Type Encounter Number Reason For Visit Attending Provider ADM Date DC Date Status Disposition Source [facility] [place] [facility] Outpatient Encounter [id number] 11/01 [facility] [place] [place] [facility] Outpatient Encounter [id number] 11/05 [facility] [place] [facility] [place] [facility] OFFICE O/P EST MOD 30 MIN [id number] Diagnos is: ICD-10- CM K21.9 Gastro- esophag eal reflux disease without esophag itbrenda LOIJunieNE 12/04 [place] [facility] [place] [facility] [place] [facility] Outpatient Encounter [id number] 12/04 [place] [facility] [place] [facility] [place] [facility] Outpatient Encounter [id number] 12/04 [place] [facility] [place] [facility] [place] [facility] [place] [facility] [place] 1/ [id number] Diagnos is: ICD-10- CM H25.813 Combine d forms of age-rel ated catarac t, bilater al JIMI GALVAN 07/08 [facility] [place] [facility] [place] [facility] FIT SPECTACLES BIFOCAL [id number] Diagnos is: ICD-10- CM Z46.0 Encount er for fit/adj st of spectac les and contact lenses JIMI GALVAN 07/11 [facility] Social History Combined list of available smoking, tobacco, and other social history from Department of Defense and Veterans Affairs facilities. Social History Type Response Date Comment Sourc e Tobacco smoking status NHIS [place]-TOBACCO FORMER USER 11/06/2023 [facility] History of tobacco use CA-TOBACCO QUIT 15 YRS OR MORE 11/06/2023 [facility] Plan of Care List of future care activities from Department of Veterans Affairs facilities. Additional future care activities may be listed in the Assessment and Plan section. Date/Time Care Activity Care Activity Detail Facili ty 10/10/2024 AMBULATORY - MEDICINE AMBULATORY - MEDICI [facility] Advance Directives List of completed, amended, or rescinded Advance Directives on record at Department of Veterans Affairs facilities. An actual copy of the Directive is not included. Date Advance Directive Provider Source 12/05/2023 ADVANCE DIRECTIVE DELIA DEL VALLE [facility]
--- OUTSIDE RECORDS SUMMARY | 2024-09-22 09:44 | XMS_ITS | Clinical Summary ---
Author Organization [employer] Address [address] [place] [address] Care Team Providers Care Mat Making Machine Tender Name Role Phone Unavailable Primary Care Provider Unavailabl e Encounters Date Type Department Care Team Description 09/02/2024 3:20 PM EDT Immunization [facility] [address] [place], [place] [id number] Encounter for immunization (Primary Dx) from Last [...]
[2024-09-22 10:00] LABS: Alanine Aminotransferase 31 U/L (0-40); Albumin Level 3.8 g/dL (3.5-5.0); Alkaline Phosphatase 101 U/L (39-117); Anion Gap 10 (12-20); Aspartate Amino Transferase 26 U/L (5-37); Bilirubin Total 1.4 mg/dL (0.0-1.0); Blood Urea Nitrogen 12 mg/dL (9-16); Calcium 9.5 mg/dL (8.4-10.2); Carbon Dioxide 25 mmol/L (22-29); Chloride 107 mmol/L (96-108); Cholesterol 138 mg/dL (<200); Estimated Glomerular Filt Rate > 60; Glucose Fasting 89 mg/dL (60-99); HDL Cholesterol 44 mg/dL (>40); LDL Cholesterol Calculated 69 mg/dL (<100); Potassium 3.9 mmol/L (3.3-5.1); Sodium 138 mmol/L (135-145); Total Protein 7.1 g/dL (6.5-8.0); Triglycerides 128 mg/dL (<150)
[2024-09-22 10:15] LABS: Prostate Specific Antigen 3.54 ng/mL (<0.05-4.0)
[2024-09-22 10:21] LABS: Vitamin D 25-OH Total 32.5 ng/mL (>30)
== END 2024-09-22 08:55 | disposition home or self-care (01) ==
LOC: HO.LAB 08:54
PROVIDERS: PCP Internal Medicine Medical Oncology; Visit Provider Internal Medicine Medical Oncology
DX: I10 Essential (primary) hypertension (principal); E78.5 Hyperlipidemia, unspecified; N40.1 Benign prostatic hyperplasia with lower urinary tract symptoms; E55.9 Vitamin D deficiency, unspecified; Z12.5 Encounter for screening for malignant neoplasm of prostate
CPT/HCPCS: 36415; 80053; 80061; 82306; 84153; 85025

== ENCOUNTER 2024-10-13 12:49 | Outpatient (AMB) | payer MEDICARE, SELFPAY ==
[2024-10-13 12:59] LABS: Prothrombin Time Whole Bld POC 26.4 sec (11.1-13.5); ~PT, ~INR - Anti Coag Clinic 2.2 (0.9-1.1)
--- NOTE | 2024-10-13 13:24 | MHC.OFFVISCO ---
Intake Intake Visit Reasons: Anticoagulation Allergies indomethacin [From INDOCIN] Allergy (Intermediate, Verified 10/13/24 12:50) RASH oxycodone [OXYCODONE] Allergy (Intermediate, Verified 10/13/24 12:50) VOMITING/RASH Sulfa (Sulfonamide Antibiotics) [SULFA (SULFONAMIDE ANTIBIOTICS)] Allergy (Intermediate, Verified 10/13/24 12:50) BLISTERS, sore on the end of his penis acetaminophen [Percocet] Adverse Reaction (Unknown, Verified 10/13/24 12:50) vomiting Medication List - Last Reconciled 10/13/24 by Luci Connor, RN atorvastatin 1 tab PO DAILY cholecalciferol (vitamin D3) 25 mcg PO DAILY donepezil 5 mg PO DAILY levetiracetam 1,000 mg PO BID omeprazole 1 cap PO DAILY paroxetine HCl 40 mg PO DAILY paroxetine HCl 10 mg PO DAILY propranolol ER 1 cap PO DAILY pyridoxine (vitamin B6) 100 mg PO DAILY pyridoxine (vitamin B6) mg PO tamsulosin 0.4 mg PO DAILY warfarin 2.5 mg See Protocol PO 2XW Nursing Note INR: 2.2 in therapeutic range Medications and supplements reviewed No changes in health, diet, medications, or supplements, Denies any signs and symptoms of bleeding or bruising or clotting. Bleeding, bruising, clotting discussed Nutritional guidance given Dose: 5MG TUE/ 2.5MG X 6 DAYS F/U INR: 4 WEEKS Patient verbalizes understanding of instructions given Anti-Coag Initial Assessment Social Hx Patient Tobacco Use Status: Former Tobacco user Tobacco use type: Cigarette Alcohol intake frequency: former alcohol drinker Cardiovascular Hx: HTN, Arrhythmias and Varicose Veins Musculoskeletal Hx: Arthritis GI Hx: Other (GERD) Neurological Hx: Epilepsy/Seizures Cancer HX: No Psych. Illness/Depression: Yes (DEPRESSION) Coding Level of Care Code Est Patient Level 1 Diagnoses Current use of anticoagulant therapy Z79.01 Assessment & Plan Assessment & Plan (1) Current use of anticoagulant therapy: Code(s): Z79.01 - snf (current) use of anticoagulants Category: Medical Medications: New simethicone (Gas-X Extra Strength) 125 mg PO ONCE PRN
--- OUTSIDE RECORDS SUMMARY | 2024-10-13 14:12 | XMS_ITS | Continuity of Care Document ---
Author Name [facility] Organization [facility] Care Team Providers Care Mold Hoister Name Role Phone [facility] Unavailable Unavailable Problems Combined list of problems [...] 05 Entered By: SOFIA BLISS Comment: involving nondalton coronary artery of nondalton heart without angina pectoris [facility] [...] will be referred to urology for evaluation. [facility] Reactive depression (situational) Active Condition November 06, 2023 Entered By: SOFIA BLISS Comment: He feels that his depression is worse through the winter. 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, high risk, bilateral Active Diagnosis [facility] Diagnosis: ICD-10-CM Z46.0 Encounter for fit/adjst of spectacles and contact lenses Active Diagnosis [facility] Diagnosis: ICD-10-CM H25.813 Combined forms of age-related cataract, bilateral Active Diagnosis [facility] Diagnosis: ICD-10-CM K21.9 Gastro-esophageal reflux disease without esophagitis Active Diagnosis [facility] Medications Combined list [...] DAILY ORAL ACTIVE LOI, SUNIL STEF 2023 [facility] CHOLECALCIF SARAHY 50MCG (2,000UNIT) TAB TAKE ONE TABLET BY MOUTH ONCE DAILY ORAL ACTIVE LOI, SUNIL STEF 2023 [facility] FINASTERIDE 5MG TAB TAKE ONE TABLET BY MOUTH ONCE DAILY ORAL ACTIVE LOI, SUNIL STEF [facility]23 [facility] FUROSEMIDE 20MG TAB TAKE ONE TABLET BY MOUTH ONCE DAILY ORAL ACTIVE LOI, SUNIL STEF 2023 [facility] OMEPRAZOLE 20MG CAP,EC TAKE 1 CAPSULE BY MOUTH EVERY MORNING 30 MINUTES BEFORE BREAKFAS T ORAL ACTIVE LOI, SUNIL STEF 2023 [facility] PAROXETINE HCL 30MG TAB TAKE ONE TABLET BY MOUTH ONCE DAILY ORAL ACTIVE LOI, SUNIL STEF 2023 [facility] PROPRANOLOL HCL 40MG TAB TAKE 1.5 TABLETS BY MOUTH ONCE DAILY ORAL ACTIVE LOI, SUNIL STEF 2023 [facility] TAMSULOSIN HCL 0.4MG CAP TAKE 1 CAPSULE BY MOUTH ONCE DAILY ORAL ACTIVE LOI, SUNIL STEF 2023 [facility] WARFARIN (NON-VA) TAB TAKE 2.5 BY MOUTH ONCE DAILY ORAL ACTIVE LOI, SUNIL STEF 2023 [facility] Allergies, Adverse Reactions, Alerts Combined list of allergies from Department of Defense and Veterans Affairs facilities. It does not include entries that were removed or entered in error. Substance Category Reaction Severity Reaction type Status Date Reported Comments Source INDOMETHACIN Propensity to adverse reactions to drug (finding) active 4 [facility] OXYCODONE HCL 5MG TABLET Propensity to adverse reactions to drug (finding) active [facility] SULFAMETHOXAZ OLE Propensity to adverse reactions to drug (finding) active 4 [facility] Immunizations Combined list of available immunizations from the Department of Defense and Veterans Affairs facilities. Immunization Series Date Given Administered By Site Reaction Lot Number CVX Code Drug Geriatric Physician Status Comments Source INFLUENZA, UNSPECIFIED FORMULATION 2022 88 complet ed HISTORICA L INFORMATI ON - FROM OTHER REGISTRY, [facility] TDAP 2020 115 complet ed HISTORICA L INFORMATI ON - FROM OTHER REGISTRY, [facility] [place] [facility] PNEUMOCOCCAL POLYSACCHARID E PPV23 2017 33 complet ed HISTORICA L INFORMATI ON - FROM OTHER REGISTRY, [facility] [place] [facility] PNEUMOCOCCAL CONJUGATE PCV 13 2015 133 complet ed HISTORICA L INFORMATI ON - FROM OTHER REGISTRY, [facility] [place] [facility] Vital Signs Combined list of inpatient and outpatient Vital Signs from Department of Defense and Veterans Affairs, ranging from 12 months to all on record, depending upon the facility. Vital Sign Value Date Comments Source SYSTOLIC BLOOD PRESSURE 100 12/05/19 24 14:24:26 [facility] [place] [facility] DIASTOLIC BLOOD PRESSURE 62 024 14:24:26 [facility] [place] [facility] PULSE OXIMETRY 95 12/05/2023 14:24:26 [facility] [place] [facility] WEIGHT 175 12/05/2023 14:24:26 [facility] [place] [facility] BMI 25 kg/m2 12/05/2023 14:24:26 [facility] [place] [facility] HEIGHT 70 12/05/2023 14:24:26 [facility] [place] [facility] TEMPERATURE 98.3 12/05/2023 14:24:26 [facility] [place] [facility] PULSE 70 12/05/2023 14:24:26 [facility] [place] [facility] RESPIRATION 16 12/05/2023 14:24:26 [facility] [place] [facility] Encounters Combined list of: 1) Encounters from Department of Veterans Affairs facilities going backup to the last 18 months, not all [place] inpatient encounters are included; 2) Encounters from the Department of Defense facilities going backup to 280 months. Location Location Details Encounter Type Encounter Number Reason For Visit Attending Provider ADM Date DC Date Status Disposition Source [facility] [place] [facility] Outpatient Encounter [id number] 11/01 [facility] [place] [facility] [place] [facility] Outpatient Encounter [id number] 11/05 [facility] [place] [place] [facility] OFFICE O/P EST MOD 30 MIN [id number] Diagnos is: ICD-10- CM K21.9 Gastro- esophag eal reflux disease without esophag itis LOIJunie BLACKWELL STEF 12/04 [facility] En[facility] [id number] 12/04 [facility] Encounter [id number] 12/04 [facility] [place] [place] [facility] COMPRE OPH EXAM NEW PT 1/ [id number] Diagnos is: ICD-10- CM H25.813 Combine d forms of age-rel ated catarac t, bilater al GALVAN,LACE Y J 07/08 [facility] [place] [place] [facility] FIT SPECTACLES BIFOCAL [id number] Diagnos is: ICD-10- CM Z46.0 Encount er for fit/adj st of spectac les and contact lenses GALVAN,LACE Y J 07/11 [facility] [place] [facility] OFFICE O/P EST MOD 30 MIN [id number] Diagnos is: ICD-10- CM H40.023 Open angle with borderl ine finding s, high risk, bilater al GALVAN,LACE Y J 10/10 [facility] [place] [place] [facility] EXTENDED VISUAL FIELD XM [id number] Diagnos is: ICD-10- CM H40.023 Open angle with borderl ine finding s, high risk, bilater al GALVAN,LACE Y J 10/10 [facility] ECHO EXAM OF EYE THICKNESS [id number] Diagnos is: ICD-10- CM H40.023 Open angle with borderl ine finding s, high risk, bilater al JIMI GALVAN 10/10 [facility] [place] [facility] Outpatient Encounter [id number] [facility] Social History Combined list of available smoking, tobacco, and other social history from Department of Defense and Veterans Affairs facilities. Social History Type Response Date Comment Sour e Tobacco smoking status NHIS [place]-TOBACCO FORMER USER 11/06/2023 [facility] History of tobacco use AR-TOBACCO QUIT 15 YRS OR MORE 11/06/2023 [facility] Plan of Care List of future care activities from Department of [facility] facilities. Additional future care activities may be listed in the Assessment and Plan section. Date/Time Care Activity Care Activity Detail Facili ty 12/10/2024 AMBULATORY - MEDICINE AMBULATORY - MEDICI [facility] Advance Directives List of completed, amended, or rescinded Advance Directives on record at Department of [facility] facilities. An actual copy of the Directive is not included. Date Advance Directive Provider Source 12/05/2023 ADVANCE DIRECTIVE DELIA DEL VALLE [facility]
--- OUTSIDE RECORDS SUMMARY | 2024-10-13 14:12 | XMS_ITS | Encounter Summary ---
Author Name [facility] Organization [facility] Address [address] [place] [address] Care Team Providers Care Prop Maker Name Role Phone SUNIL MONSIVAIS Primary Care [...] Amaya's Name Patient's Relationship to Policy Amaya [facility] (WNR) MEDICARE ADVANTAGE [facility] (WNR) Jun 11, 2023 [id number] SANDRA LIU PATIENT Selected Encounter This section includes the information on record at ID for the Encounter. Date/Time Encounter Type Encounter Description Reason Pro vider Source October 10, 2024 01:32 PM Outpatient Encounter OPTOMETRY IHE Encounter Template Text not used by ID Plan of Treatment: Future Appointments (+ 6 months) and Future Tests (+/- 45 days) The Plan of Treatment section includes future care activities for the patient from all ID treatmentfacilities. This section includes future appointments and future orders which are active, pending or scheduled. Future Appointments This section includes appointments that were scheduled to occur 6 months from the date of the Encounter, up to a maximum of 20 appointments. The data comes from all ID treatment facilities. Appointment Date/Time Appointment Type Appointme nt Facility Name Dec 10, 2024 01:30 PM AMBULATORY - MEDICINE [facility] Social History: Smoking Status (Most current) and Tobacco Use (All prior to encounter date) This section includes the most current, and the historical, smoking and tobacco- related health factors from the ID facility where the Encounter took place. Current Smoking Status This section includes the most current smoking, or tobacco-related health factor, from the ID facility where the Encounter took place. Date/Time Current Smoking Status Comment Facil ity November 06, 2023 10:34 AM ID-TOBACCO FORMER USER [facility] Tobacco Use History This section includes a history of the smoking, or tobacco-related health factors, that were collected on or before the date of the Encounter. The data comes from the ID facility where the Encounter took place. Date/Time Smoking Status/Tobacco Use Comment F acility November 06, 2023 10:34 AM ID-TOBACCO QUIT 15 YRS OR MORE [facility] Advance Directives: All historical and current Section Date Range: From patient's date of to the date document was created. This section includes ALL of a patient's completed or amended ID Advance and Rescinded Directives. The entries below indicate that a directive exists for the patient, but an actual copy is not included with this document. The data comes from all ID facilities. Date Advance Directives Provider Source Dec 05, 2023 ADVANCE DIRECTIVE NULATODELIA M [facility] Encounter Notes: All associated encounter notes This section contains the clinical notes associated to the Encounter. Date/Time Encounter Note(s) Provider Source October 10, 2024 01:32 PM OPTOMETRY NOTE: LOCAL TITLE: OPTOMETRY NOTE STANDARD TITLE: OPTOMETRY NOTE DATE OF NOTE: OCTOBER 10, 2024@13:32 ENTRY DATE: OCTOBER 10, 2024@13:32:32 AUTHOR: MARQUISE YOUNGBLOOD EXP COSIGNER: URGENCY: STATUS: COMPLETED seen for fitting. Fit one pair. /malka/ MARQUISE YOUNGBLOOD SURGICAL DEVICE SALES REPRESENTATIVE Signed: 10/10/2024 13:32 Receipt Acknowledged By: * AWAITING SIGNATURE * JORDIN ERNST NICOLE [facility]
--- OUTSIDE RECORDS SUMMARY | 2024-10-13 14:12 | XMS_ITS ---
Author Name [facility] [place] Address [address] [place] [address] Care Team Providers Care Success Coach Name Role Phone SUNIL MONSIVAIS Primary Care [...] Amaya's Name Patient's Relationship to Policy Amaya [facility] (WNR) MEDICARE ADVANTAGE [facility] (WNR) Jun 11, 2023 [id number] SANDRA LIU PATIENT Selected Encounter This section includes the information on record at NE for the Encounter. 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 Date/Time Primary/Secondary Diagnosis Diagnosis Name Provider Source October 10, 2024 01:19 PM PRIMARY Open angle with borderline findings, high risk, bilateral GALVAN,MINH J [facility] [place] [facility] Plan of Treatment: Future Appointments (+ 6 months) and Future Tests (+/- 45 days) The Plan of Treatment section includes future care activities for the patient from all [place] treatmentfacilst. [facility]. This section includes future appointments and future orders which are active, pending or scheduled. Future Appointments This section includes appointments that were scheduled to occur 6 months from the date of the Encounter, up to a maximum of 20 appointments. The data comes from all [place] treatment facilities. Appointment Date/Time Appointment Type Appointme nt Facility Name Dec 10, 2024 01:30 PM AMBULATORY - MEDICINE [facility] Social History: Smoking Status (Most current) and Tobacco Use (All prior to encounter date) This section includes the most current, and the historical, smoking and tobacco- related health factors from the NE facility where the Encounter took place. Current Smoking Status This section includes the most current smoking, or tobacco-related health factor, from the [place] facility where the Encounter took place. Date/Time Current Smoking Status Comment Facil ity November 06, 2023 10:34 AM NE-TOBACCO FORMER USER [facility] Tobacco Use History This section includes a history of the smoking, or tobacco-related health factors, that were collected on or before the date of the Encounter. The data comes from the NE facility where the Encounter took place. Date/Time Smoking Status/Tobacco Use Comment F acility November 06, 2023 10:34 AM NE-TOBACCO QUIT 15 YRS OR MORE [facility] Advance Directives: All historical and current Section Date Range: From patient's date of to the date document was created. This section includes ALL of a patient's completed or amended [place] Advance and Rescinded Directives. The entries below indicate that a directive exists for the patient, but an actual copy is not included with this document. The data comes from all [place] facilities. Date Advance Directives Provider Source Dec 05, 2023 ADVANCE DIRECTIVE DELIA DEL VALLE [facility] Encounter Notes: All associated encounter notes This section contains the clinical notes associated to the Encounter. 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 Visual field of left eye somewhat reliable with 0/10 fixation losses, 4% FP errors and 12% FN errors, GHT ONL, VFI 98%, visual field shows nasal depression though primarily edge point. P: Keep follow-up as scheduled. Ed re today's findings. Nara Visa repeated back the plan and education. /malka/ MINH GALVAN OD NURSING HOME SOCIAL WORKER Signed: 10/10/2024 13:42 MINH GALVAN [facility]
--- OUTSIDE RECORDS SUMMARY | 2024-10-13 14:12 | XMS_ITS ---
Author Name [facility] [place] Organization [facility] [place] Address [address] [place] [id number] Care Team Providers Care Materials Management Supervisor Name Role Phone SUNLI MONSIVAIS Primary Care Provider Unavailabl e Insurance [...] Amaya's Name Patient's Relationship to Policy Amaya [facility] (WNR) MEDICARE ADVANTAGE [facility] ([facility]) Jun 11, 2023 [id number] SANDRA LIU PATIENT Selected Encounter This section includes the information on record at [place] for the Encounter. Date/Time Encounter Type Encounter Description Reason Provider Source October 10, 2024 12:30 PM OFFICE O/P EST MOD 30 MIN OPTOMETRY ICD-10-CM H40.023 Open angle with borderline findings, high risk, bilateral GALVAN,MINH Can E Encounter Template Text not used by [place] Assessments - Encounter Diagnoses This section includes the primary and secondary diagnoses documented for the Encounter. Date/Time Primary/Secondary Diagnosis Diagnosis Name Provider Source October 10, 2024 01:14 PM PRIMARY Open angle with borderline findings, high risk, bilateral [facility] October 10, 2024 01:14 PM SECONDARY Combined forms of age-related cataract, bilateral MINH GALVAN [facility] October 10, 2024 01:14 PM SECONDARY Presbyopia MINH GALVAN [facility] Plan of Treatment: Future Appointments (+ 6 months) and Future Tests (+/- 45 days) The Plan of Treatment section includes future care activities for the patient from all [place] [facility]. This section includes future appointments and future orders which are active, pending or scheduled. Future Appointments This section includes appointments that were scheduled to occur 6 months from the date of the Encounter, up to a maximum of 20 appointments. The data comes from all [place] treatment facilities. Appointment Date/Time Appointment Type Appointme nt Facility Name Dec 10, 2024 01:30 PM AMBULATORY - MEDICINE [facility] Social History: Smoking Status (Most current) and Tobacco Use (All prior to encounter date) This section includes the most current, and the historical, smoking and tobacco- related health factors from the [place] facility where the Encounter took place. Current Smoking Status This section includes the most current smoking, or tobacco-related health factor, from the [place] facility where the Encounter took place. Date/Time Current Smoking Status Comment Facil ity November 06, 2023 10:34 AM [place]-TOBACCO FORMER USER [facility] Tobacco Use History This section includes a history of the smoking, or tobacco-related health factors, that were collected on or before the date of the Encounter. The data comes from the [place] facility where the Encounter took place. Date/Time Smoking Status/Tobacco Use Comment F acility November 06, 2023 10:34 AM [place]-TOBACCO QUIT 15 YRS OR MORE [facility] Advance Directives: All historical and current Section Date Range: From patient's date of to the date document was created. This section includes ALL of a patient's completed or amended [place] Advance and Rescinded Directives. The entries below indicate that a directive exists for the patient, but an actual copy is not included with this document. The data comes from all [place] facilities. Date Advance Directives Provider Source Dec 05, 2023 ADVANCE DIRECTIVE DELIA DEL VALLE [facility] Encounter Notes: All associated encounter notes This section contains the clinical notes associated to the Encounter. Date/Time Encounter Note(s) Provider Source October 10, 2024 08:37 AM OPTOMETRY NOTE: LOCAL TITLE: OPTOMETRY NOTE STANDARD TITLE: OPTOMETRY NOTE DATE OF NOTE: OCTOBER 10, 2024@08:37 ENTRY DATE: OCTOBER 10, 2024@08:38:09 AUTHOR: MINH GALVAN EXP COSIGNER: URGENCY: STATUS: COMPLETED Eye Examination for: SANDRA LIU, 79 year old WHITE MALE JESSEE: 1.28.25 Reason for Visit/CC: Patient here for and IOP check. reports for about a week after getting glasses felt it really help and slowly started to fade. Feels cataracts may be a bit worse. Discussed proper cleaning of lenses as well and requests adjustment with contract cover seamer today as well. Denies all other changes or complaints. Current Ocular Meds: none OHx/HPI: 1. Combined Cataracts OU 2. 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 3. Peripheral retinal hole OS - well-pigmented without indication for treatment 4. Refractive Error and Presbyopia OU (-) Pain: (-) BLACK: (-) Diplopia: (+) Flashes: occaisional and infrequent either eye, no recent occurance (+) Floaters: several, longstanding and stable (-) Amaurosis Fugax/Tia's: (-) Eye Injury: (-) Eye Surgery: (-) TBI FOHx: (-) Glaucoma (-) ARMD (-) Blindness MHx: Code Description Z87.891 Ex-smoker ([facility] [id number]) E66.3 Overweight ([facility] [id number]) K21.9 Gastroesophageal reflux disease without esophagitis ([facility] [id number]) Z92.29 H/O: anticoagulant therapy ([facility] [id number]) R91.1 Solitary nodule of lung ([facility] 690018111) E78.5 Hyperlipidemia ([facility] 15029439) M17.0 Bilateral osteoarthritis of knees ([facility] [id number]) I25.10 Coronary arteriosclerosis ([facility] 24036809) N40.0 Benign prostatic hyperplasia ([facility] 477810510) R97.20 Prostate specific antigen above reference range ([facility] 186610089) F32.A Reactive depression (situational) ([facility] 27144550) D12.6 Adenomatous polyp of colon ([facility] 215463982) R69. Closed fracture of multiple ribs ([facility] 17522494) I34.0 Mitral valve regurgitation ([facility] 39020613) G56.03 Bilateral carpal tunnel syndrome ([facility] [id number]) I48.20 Chronic atrial fibrillation ([facility] 185239356) R56.9 Seizure ([facility] 78753412) F41.9 Anxiety ([facility] 49775049) SYSTEMIC MEDICATIONS/OCULAR MEDICATIONS: Active Outpatient Medications (including [...] ~1989 Current Rx with last BCVA: OD: +1.50-2.48y053 20/25+2 OS: +0.75-0.03a342 20/20 Add: +2.75 DVA ( )sc ( x )cc - [x]phoropter []specs []CL OD: 20/25-1 OS: 20/20-1 Entrance Testing: Pupil: PERRL (-)APD EOM: SAFE OU, (-)Pain/Diplopia CVF: FTFC OU Subjective Refraction: OD: no improvement OS: no improvement SLE: Lids/Lashes: dermatochalasis OU Conjunctiva: white and quiet bulbar conj OU quiet palpebral conj OU Corneas: arcus OU Iris: flat and clear OU, (-)TID OU AC: D & Q OU Angles: 3x3 OU TAP @ 12:41pm OD 13 mmHg squeezing/holding breath OS 09 mmHg more relaxed [x]Fletcher []iCare []GAT Last IOP: OD: 11 OS: 11 Pachymetry: OD: 550 OS: 547 Undilated Fundus Exam: Vit: syneresis OU Lens: 1-2+ NSC OU, 1+ ACC OU (-)PXF OU C/D (Size and Rim Description) OD 0.65 no focal notching OS 0.75 no focal notching (-)Drance heme OU PPole OD clear OS clear Macula OD flat and clear OS flat and clear A/V: normal caliber OU Assessment/Plan: 1. 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 Moderate cupping with asymmetry OS> OD, slightly thinner to essentially average CCT. No evidence of pigment dispersion or pseudoexfoliation OU. No known family history of glaucoma. No change in ONH appearance. Low index of suspicion at present. -Pt ed re today's findings -Pt ed re glaucoma as well as the natural history of this diagnosis including prognosis. -Stress importance of continued follow-up appointments -[place] repeated back the plan and education. -RTC 6 months for repeat and CEE 2. Combined Cataracts OU - not visually significant at present -Pt ed re today's findings and the importance of UV protection -Pt ed cataracts may cause reduction of BCVA and symptoms of glare -RTC sooner if vision declines or interferes with ADLs - repeated back the plan and education. -Monitor 3. Refractive Error and Presbyopia OU -CPM, adjustment by contract cover seamer -Monitor Not evaluated undilated: 4. Peripheral retinal hole OS - well-pigmented RTC or earlier PRN (x)Appointment with coordinated visual imaging (x) HVF 24-2 (x) RNFL OCT Glasses adjusted/repaired in office: (x) Yes () No If yes, how many pairs: 1 Total Time: 30 Minutes *This includes time spent before, during and after the visit occurring on the day of service and does not include procedures coded separately. Time includes chart review, examination, counseling of patient/family/caregiver, ordering medications, ordering tests, ordering procedures, referring and communicating with other HCP, and documentation in the electronic health record. Time does not include procedures coded separately, time spent on a different calendar day or time of clinical staff. Education: Glaucoma: Patient was educated regarding glaucoma/glaucoma [...] the patient's ability to participate in testing. Medication Reconciliation: Outpatient: Has the patient been taking medications as documented in the EMLR? YES: The patient has been taking medications as documented in the EMLR. Essential Medication List for Review used to complete this medication reconciliation. INCLUDED IN THIS LIST: Alphabetical list of active outpatient prescriptions dispensed from this [facility] (local) and dispensed from another [place] or [facility] facility (remote) as well as [...] Remote Allergy/ADR Data available for this patient [facility] OXYCODONE HCL 5MG TABLET [facility] SULFAMETHOXAZOLE Med. Reconciliation (Tool #1) INCLUDED IN THIS LIST: Alphabetical list of active outpatient prescriptions dispensed from this [facility] (local) and dispensed from another [place] or [facility] facility (remote) as well as inpatient orders (local pending and active), local clinic medications, locally documented non-VA medications, and local prescriptions that have or been discontinued in the past 90 days. Non-VA Meds Last Documented On: Dec 05, 2023 NOTE The display of VA prescriptions dispensed from another [place] or [facility] facility (remote) is limited to active outpatient prescription entries matched to National Drug File at the originating site and may not include some items such as investigational drugs, compounds, etc. NOT INCLUDED IN THIS LIST: Medications self-entered by the patient into personal health records (i.e. [employer]) are NOT included in this list. Non-VA medications documented outside this [place], remote inpatient orders (regardless of status) and [...] TERMS AND POSSIBLE PATIENT ACTIONS INPT = [place] inpatient order IV = [place] intravenous medication OUTPT = [place] outpatient prescription PHARMACY POSSIBLE PATIENT TERMS EXPLANATION ACTIONS -------- ---- ACTIVE A prescription that can be If you have refills, filled at the local [place] pharmacy. you may request a refill of this prescription from your [facility] pharmacy. CLINIC A medication you received during If you have questions a visit to a [place] clinic or about this medication emergency department. contact your [place] healthcare team. DISCONTINUED A prescription your provider has Contact your [facility] stopped. It is no longer healthcare team if you available to be sent to you or need more of this picked up at the [place] pharmacy medication. window. A prescription which is [...] the VA. Or, it may be an ovqx-kqo-bcifdil (OTC), herbal, dietary supplements or sample medication. [...] Medication Reconciliation List Offered and Declined by [place] () Medication Reconciliation List Printed for [place] at Exam () Optometry HT Please Print and Mail Copy of Medication Reconciliation List () AMSA Please Print and Mail Copy of Medication Reconciliation List /es/ MINH GALVAN OD CONTINUUM OF CARE MANAGER Signed: 10/10/2024 13:42 MINH GALVAN [facility]
--- OUTSIDE RECORDS SUMMARY | 2024-10-13 14:12 | XMS_ITS | Encounter Summary ---
Author Name [facility] [place] [facility] [place] Organization [place] Address [address] [place] [id number] Care Team Providers Care Oracle Financial Application Developer Name Role Phone SUNIL MONSIVAIS Primary Care [...] [facility] (WNR) MEDICARE ADVANTAGE [facility] (WNR) Jun 11, 2023 [id number] SANDRA LIU PATIENT Selected Encounter This section includes the information on record at [place] for the Encounter. Date/Time Encounter Type Encounter Description Reason Provider Source October 10, 2024 01:15 PM ECHO EXAM OF EYE THICKNESS OPTOMETRY ICD-10-CM H40.023 Open angle with borderline findings, high risk, bilateral GALVAN,MINH J IHE Encounter Template Text not used by [place] Assessments - Encounter Diagnoses This section includes the primary and secondary diagnoses documented for the Encounter. Date/Time Primary/Secondary Diagnosis Diagnosis Name Provider Source October 10, 2024 01:21 PM PRIMARY Open angle with borderline findings, high risk, bilateral GALVAN,MINH J [facility] Plan of Treatment: Future Appointments (+ 6 months) and Future Tests (+/- 45 days) The Plan of Treatment section includes future care activities for the patient from all [place] [facility] This section includes future appointments and [...] 10, 2024 01:30 PM AMBULATORY - MEDICINE [facility] Social History: Smoking Status (Most current) and [...] Facil ity November 06, 2023 10:34 AM [place]-TOBACCO FORMER USER [facility] Tobacco Use History This section includes a history of the smoking, or tobacco-related health factors, that were collected on or before the date of the Encounter. The data comes from the [place] facility where the Encounter took place. Date/Time Smoking Status/Tobacco Use Comment F acility November 06, 2023 10:34 AM [place]-TOBACCO QUIT 15 YRS OR MORE [facility] Advance Directives: All historical and current Section Date Range: From patient's date of to the date document was created. This section includes ALL of a patient's completed or amended [place] Advance and Rescinded Directives. The entries below indicate that a directive exists for the patient, but an actual copy is not included with this document. The data comes from all [place] facilities. Date Advance Directives Provider Source Dec 05, 2023 ADVANCE DIRECTIVE DELIA DEL VALLE [facility] Encounter Notes: All associated encounter notes This section contains the clinical notes associated to the Encounter. Date/Time Encounter Note(s) Provider Source October 10, 2024 01:14 PM OPTOMETRY CONSULT: LOCAL TITLE: CONSULT REPORT/OPTOMETRY OCT STANDARD TITLE: OPTOMETRY CONSULT DATE OF NOTE: OCTOBER 10, 2024@13:14 ENTRY DATE: OCTOBER 10, 2024@13:14:56 AUTHOR: MINH GALVAN EXP COSIGNER: URGENCY: STATUS: COMPLETED S: Review of RNFL OCT of patient considered high-risk open angle glaucoma suspect OU secondary to large and asymmetric cupping O: RNFL OCT ran by oil field technician A: OCT of right eye shows all quadrants WNL, disc area of 1.83, average CDR of 0.69 and vertical CDR of 0.63, average RNFL thickness of 83??m. OCT of left eye shows all quadrants WNL, disc area of 1.96, average CDR of 0.75 and vertical CDR of 0.73, average RNFL thickness of 77??m. RNFL symmetry 71%. P: Keep follow-up as scheduled, ed re today's findings. [place] repeated back the plan and education. Pachymetry: OD: 550 OS: 547 /es/ MINH GALVAN, OD GAS STATION OPERATOR Signed: 10/10/2024 13:42 [facility]AN [facility]
== END 2024-10-13 13:02 | disposition home or self-care (01) ==
LOC: HO.ACS 12:49
PROVIDERS: PCP Internal Medicine Medical Oncology; Visit Provider Internal Medicine Medical Oncology
DX: Z79.01 Long term (current) use of anticoagulants (principal)

== ENCOUNTER → 2024-10-13 12:49 | Outpatient (BNVA) | payer MEDICARE, SELFPAY | PROVIDERS: PCP Internal Medicine Medical Oncology; Visit Provider Internal Medicine Medical Oncology | DX: I48.20 Chronic atrial fibrillation, unspecified (principal); Z51.81 Encounter for therapeutic drug level monitoring; Z79.01 Long term (current) use of anticoagulants | CPT/HCPCS: 85610; 99211 ==

== ENCOUNTER 2024-11-10 12:35 | Outpatient (AMB) | payer MEDICARE, SELFPAY ==
[2024-11-10 13:10] LABS: Prothrombin Time Whole Bld POC 28.4 sec (11.1-13.5); ~PT, ~INR - Anti Coag Clinic 2.4 (0.9-1.1)
--- NOTE | 2024-11-10 13:11 | MHC.OFFVISCO ---
Intake Intake Visit Reasons: Anticoagulation Allergies indomethacin [From INDOCIN] Allergy (Intermediate, Verified 11/10/24 13:05) RASH oxycodone [OXYCODONE] Allergy (Intermediate, Verified 11/10/24 13:05) VOMITING/RASH Sulfa (Sulfonamide Antibiotics) [SULFA (SULFONAMIDE ANTIBIOTICS)] Allergy (Intermediate, Verified 11/10/24 13:05) BLISTERS, sore on the end of his penis acetaminophen [Percocet] Adverse Reaction (Unknown, Verified 11/10/24 13:05) vomiting Medication List - Last Reconciled 11/10/24 by Mya Dillard, NELSON atorvastatin 1 tab PO DAILY cholecalciferol (vitamin D3) 25 mcg PO DAILY donepezil 5 mg PO DAILY levetiracetam 1,000 mg PO BID omeprazole 1 cap PO DAILY paroxetine HCl 40 mg PO DAILY paroxetine HCl 10 mg PO DAILY propranolol ER 1 cap PO DAILY pyridoxine (vitamin B6) mg PO pyridoxine (vitamin B6) 100 mg PO DAILY simethicone (Gas-X Extra Strength) 125 mg PO ONCE PRN tamsulosin 0.4 mg PO DAILY warfarin 2.5 mg See Protocol PO 2XW Nursing Note INR: 2.4 in therapeutic range of 2-3 Medications and supplements reviewed No changes in health, diet, medications, or supplements, Denies any signs and symptoms of bleeding or bruising or clotting. Bleeding, bruising, clotting discussed Nutritional guidance given Dose: 2.5mg X 6 days and 5mg X 1 day () F/U INR: 4 weeks Patient verbalizes understanding of instructions given Anti-Coag Initial Assessment Social Hx Patient Tobacco Use Status: Former Tobacco user Tobacco use type: Cigarette Alcohol intake frequency: former alcohol drinker Cardiovascular Hx: HTN, Arrhythmias and Varicose Veins Musculoskeletal Hx: Arthritis GI Hx: Other (GERD) Neurological Hx: Epilepsy/Seizures Cancer HX: No Psych. Illness/Depression: Yes (DEPRESSION) Coding Level of Care Code Est Patient Level 1 Diagnoses Current use of anticoagulant therapy Z79.01 Assessment & Plan Assessment & Plan (1) Current use of anticoagulant therapy: Code(s): Z79.01 - intermediate project manager (current) use of anticoagulants Category: Medical
== END 2024-11-10 13:13 | disposition home or self-care (01) ==
LOC: HO.ACS 12:35
PROVIDERS: PCP Internal Medicine Medical Oncology; Visit Provider Internal Medicine Medical Oncology
DX: Z79.01 Long term (current) use of anticoagulants (principal)

== ENCOUNTER → 2024-11-10 12:35 | Outpatient (BNVA) | payer MEDICARE, SELFPAY | PROVIDERS: PCP Internal Medicine Medical Oncology; Visit Provider Internal Medicine Medical Oncology | DX: I48.20 Chronic atrial fibrillation, unspecified (principal); Z51.81 Encounter for therapeutic drug level monitoring; Z79.01 Long term (current) use of anticoagulants | CPT/HCPCS: 85610; 99211 ==

== ENCOUNTER 2024-12-08 12:59 | Outpatient (AMB) | payer MEDICARE, SELFPAY ==
[2024-12-08 13:07] LABS: Prothrombin Time Whole Bld POC 30.7 sec (11.1-13.5); ~PT, ~INR - Anti Coag Clinic 2.6 (0.9-1.1)
--- NOTE | 2024-12-08 13:08 | MHC.OFFVISCO ---
Intake Intake Visit Reasons: Anticoagulation Allergies indomethacin (From INDOCIN) Allergy (Intermediate, Verified 12/08/24 13:03) RASH oxycodone (OXYCODONE) Allergy (Intermediate, Verified 12/08/24 13:03) VOMITING/RASH Sulfa (Sulfonamide Antibiotics) (SULFA (SULFONAMIDE ANTIBIOTICS)) Allergy (Intermediate, Verified 12/08/24 13:03) BLISTERS, sore on the end of his penis acetaminophen (Percocet) Adverse Reaction (Unknown, Verified 12/08/24 13:03) vomiting Medication List - Last Reconciled 12/08/24 by Mya Dillard RN atorvastatin 1 tab PO DAILY cholecalciferol (vitamin D3) 25 mcg PO DAILY donepezil 5 mg PO DAILY levetiracetam 1,000 mg PO BID omeprazole 1 cap PO DAILY paroxetine HCl 40 mg PO DAILY paroxetine HCl 10 mg PO DAILY propranolol ER 1 cap PO DAILY pyridoxine (vitamin B6) mg PO pyridoxine (vitamin B6) 100 mg PO DAILY simethicone (Gas-X Extra Strength) 125 mg PO ONCE PRN tamsulosin 0.4 mg PO DAILY warfarin 2.5 mg See Protocol PO 2XW Nursing Note INR: 2.6 in therapeutic range of 2-3 Medications and supplements reviewed No changes in health, diet, medications, or supplements, Denies any signs and symptoms of bleeding or bruising or clotting. Bleeding, bruising, clotting discussed Nutritional guidance given Dose: 2.5mg X 6 days and 5mg X 1 day () F/U INR: 4 weeks Patient verbalizes understanding of instructions given Anti-Coag Initial Assessment Social Hx Patient Tobacco Use Status: Former Tobacco user Tobacco use type: Cigarette Alcohol intake frequency: former alcohol drinker Cardiovascular Hx: HTN, Arrhythmias and Varicose Veins Musculoskeletal Hx: Arthritis GI Hx: Other (GERD) Neurological Hx: Epilepsy/Seizures Cancer HX: No Psych. Illness/Depression: Yes (DEPRESSION) Coding Level of Care Code Est Patient Level 1 Diagnoses Current use of anticoagulant therapy Z79.01 Results AMB INR Fingerstick AMB INR Fingerstick 2.6 Last Edit by Mya Dillard RN on 12/08/24 13:07 interface delay Assessment & Plan Assessment & Plan (1) Current use of anticoagulant therapy: Code(s): Z79.01 - sider (current) use of anticoagulants Category: Medical
== END 2024-12-08 13:11 | disposition home or self-care (01) ==
LOC: HO.ACS 12:59
PROVIDERS: PCP Internal Medicine Medical Oncology; Visit Provider Internal Medicine Medical Oncology
DX: Z79.01 Long term (current) use of anticoagulants (principal)

== ENCOUNTER → 2024-12-08 12:59 | Outpatient (BNVA) | payer MEDICARE, SELFPAY | PROVIDERS: PCP Internal Medicine Medical Oncology; Visit Provider Internal Medicine Medical Oncology | DX: Z79.01 Long term (current) use of anticoagulants (principal) | CPT/HCPCS: 85610; 99211 ==

== ENCOUNTER 2025-01-08 12:42 | Outpatient (AMB) | payer MEDICARE, SELFPAY ==
--- OUTSIDE RECORDS SUMMARY | 2025-01-08 12:53 | XMS_ITS | Clinical Summary ---
Author Organization [employer] Address [address] [place] [address] Care Team Providers Care Tack Cutter Name Role Phone Unavailable Primary Care Provider Unavailabl e Immunizations Immunization Administration Dates Next Due Influenza, Unspecified 02/09/2023 [...] 1-dose 75+ series) 2022 Influenza Vaccine (#1) 2025 02/09/2023 COVID-19 Vaccine (2 - 2023-2 5 season) 2025 09/02/2024 DTaP/Tdap/Td Vaccines (2 - T d or Tdap) 09/22/2030 09/22/2020 Pneumococcal Vaccine: 50+ Years Completed 05/03/2018, 07/19/2015 HIB Vaccines Aged Out No longer eligi [...] patient's age to complete this topic Meningococcal B Vaccine Aged Out No l onger eligible based on patient's age to complete [...]
--- NOTE | 2025-01-08 12:59 | MHC.OFFVIS ---
Intake Visit Reasons: 6m CPS Allergies indomethacin (From INDOCIN) Allergy (Intermediate, Verified 01/08/25 13:31) RASH oxycodone (OXYCODONE) Allergy (Intermediate, Verified 01/08/25 13:31) VOMITING/RASH Sulfa (Sulfonamide Antibiotics) (SULFA (SULFONAMIDE ANTIBIOTICS)) Allergy (Intermediate, Verified 01/08/25 13:31) BLISTERS, sore on the end of his penis acetaminophen (Percocet) Adverse Reaction (Unknown, Verified 01/08/25 13:31) vomiting Medication List - Last Reconciled 01/08/25 by Marcia Sheth CNP atorvastatin 1 tab PO DAILY cholecalciferol (vitamin D3) 25 mcg PO DAILY levetiracetam 1,000 mg PO BID omeprazole 1 cap PO DAILY paroxetine HCl 40 mg PO DAILY propranolol ER 1 cap PO DAILY pyridoxine (vitamin B6) mg PO pyridoxine (vitamin B6) 100 mg PO DAILY simethicone (Gas-X Extra Strength) 125 mg PO ONCE PRN tamsulosin 0.4 mg PO DAILY warfarin 2.5 mg See Protocol PO 2XW HPI Comments Details: 79-year-old man with history of afib on warfarin who was seen at [facility] at the beginning of 09/10/2023 for episodes of difficulty speaking. He started with infrequent episodes where he cannot talk or move years ago, but these episodes have become more frequent. He physically gets stuck where he is, loses track of what he was saying, and forgets where he was going. The episodes are brief and the information comes back to him. He also gets a weird sensation in his head all over that he is unable to describe. Occasionally, he gets a sharp pain to either side of his head that lasts a few seconds. He was doing okay. He taking levetiracetam 1000mg twice a day and medication was helping. No missed doses. No medication side effects. He was a bit more forgetful. He noted long-term memory was better than short. He was staying active and going to senior center. Walking with walker, no falls. Mood was okay. Sleep was okay. [facility] Medical History (Updated 01/08/25 @ 13:11 by Marcia Sheth CNP) Partial symptomatic epilepsy with complex partial seizures, intractable, with status epilepticus MCI (mild cognitive impairment) Cerebral microvascular disease Carpal tunnel syndrome on both sides Carpal tunnel syndrome Brain TIA Seizure Lightheadedness Mild mitral valve regurgitation Tubular adenoma Cardiac ischemia Rotator cuff tear arthropathy of both shoulders Depression Anxiety GERD (gastroesophageal reflux disease) Hyperlipidemia Hypertension CAD (coronary artery disease) Left rib fracture Right rib fracture History of COVID-19 Lung nodule Current use of anticoagulant therapy A-fib (~02/2022) Recurrent UTI (urinary tract infection) BPH w urinary obs/LUTS Osteoarthritis of left knee Surgical History History of suprapubic catheter History of appendectomy History of cardiac cath History of cystoscopy History of colonoscopy History of lithotripsy History of prostate surgery History of total right knee replacement Family History Mother No problems noted. Father No problems noted. Social History Household Members: None Housing: House Do you presently have visiting nurse or other home services: No Patient Tobacco Use Status: Former Tobacco user Tobacco use type: Cigarette Years Smoked: 20 Advance Directives Date on File: 02/28/22 service: No Current occupational status: retired Current occupation: [employer] - right handed Current occupational exposures/hazards: No Review of Systems Const Denies chills, Denies daytime sleepiness, Denies difficulty sleeping, Denies fatigue, Denies fever(s), Denies frequent falls, Reports headache(s), Denies increased appetite, Denies poor appetite, Denies snoring, Denies weakness, Denies weight gain and Denies weight loss Eyes Denies loss of vision ENT Denies vertigo, Denies dizziness and Reports headache(s) Card Denies chest pain at rest, Denies chest pain with activity, Denies syncope, Denies leg edema and Denies palpitations Resp Denies snoring GI Denies constipation, Denies heartburn, Denies diarrhea and Denies nausea Denies urinary frequency, Denies urinary incontinence and Denies urinary urgency Musc Denies abnormal gait, Denies numbness and Denies tingling Skin/Breast Denies dry skin and Denies rash Neuro Denies abnormal gait, Denies vertigo, Denies dizziness, Denies syncope, Denies frequent falls, Reports headache(s), Denies lack of coordination, Denies loss of vision, Reports memory loss, Denies numbness, Denies restless legs, Denies seizure-like activity, Denies tingling, Denies paresthesias, Denies tremor(s) and Denies weakness Psych Denies anxiety, Denies depression, Denies auditory hallucinations, Reports memory loss, Denies visual hallucinations and Denies suicidal ideation Endo Denies fatigue and Denies palpitations Physical Exam Const Other: General Appearance:? normal, in no acute distress. Skin:? no rashes, no significant birthmarks. Heart:? S1, S2 normal, no murmurs. Lungs:? clear anteriorly and posteriorly. Extremities:? no edema. Psych:? alert, oriented, cognitive function intact, cooperative with exam. Neuro Other: Mental Status:?Normal attention, orientation, memory and affect.?MMSE 28/30. Cranial Nerves:?Pupils are equal, round and reactive to light. External occular muscles are intact. Visual higgins are full. Face is symmetrical. Facial sensations are normal. Tongue is midline. Palate elevates symmetrically. Shoulder shrugging is normal. Hearing to bedside conversation is normal. Motor Examination:?Bilateral APB atrophy. Sensory Exam:?....? Coordination:?No ataxia,?no titubation.? Gait Exam: Within normal limits. Cerebellar Signs:?[id number] and [id number]-fr-[id number] is normal.? Extrapyramidal System:?No tremor, rigidity with normal facial expressions.? Pronator Drift:?Not present.? Involuntary Movements:?Mild hand tremor. Speech:?Normal.? Results Reviewed Results Reviewed: 48hr EEG 01/02/24: Abnormal EEG suggestive of left temporal irritability that could suggest underlying tendency for partial seizure 11/07/23 EEG- WNL CT, CTA of brain and neck, MRI brain without contrast at [facility] 09/2023 did not reveal any acute abnormality. Mild microvascular disease and atrophy was noted. Assessment & Plan Assessment & Plan (1) Complex partial seizure disorder: Code(s): G40.209 - Localization-related (focal) (partial) symptomatic epilepsy and epileptic syndromes with complex partial seizures, not intractable, without status epilepticus Category: Medical Plan: Continue levetiracetam 1000mg 1 tablet twice a day. (2) MCI (mild cognitive impairment): Code(s): G31.84 - Mild cognitive impairment of uncertain or unknown etiology Category: Medical Plan: He previously decided against trying donepezil, and he was not interested at this time. Can consider in the future if he is interested. Stay physically and socially active, use walker. Coding Level of Care Code Est Pt Level 4 (79045) Diagnoses Complex partial seizure disorder G40.209 MCI (mild cognitive impairment) G31.84
== END 2025-01-08 13:43 | disposition home or self-care (01) ==
LOC: HO.HSM 12:43
PROVIDERS: PCP Internal Medicine Medical Oncology; Referring Provider Internal Medicine Medical Oncology; Visit Provider Registered Nurse
DX: G40.209 Localization-related (focal) (partial) symptomatic epilepsy and epileptic syndromes with complex partial seizures, not intractable, without status epilepticus (principal); G31.84 Mild cognitive impairment of uncertain or unknown etiology
CPT/HCPCS: 99214

== ENCOUNTER → 2025-01-08 12:42 | Outpatient (BNVA) | payer MEDICARE, SELFPAY | PROVIDERS: PCP Internal Medicine Medical Oncology; Referring Provider Internal Medicine Medical Oncology; Visit Provider Registered Nurse | DX: G40.209 Localization-related (focal) (partial) symptomatic epilepsy and epileptic syndromes with complex partial seizures, not intractable, without status epilepticus (principal); G31.84 Mild cognitive impairment of uncertain or unknown etiology | CPT/HCPCS: 99212 ==

== ENCOUNTER → 2025-01-19 13:01 | Outpatient (BNVA) | payer MEDICARE, SELFPAY | PROVIDERS: PCP Internal Medicine Medical Oncology; Visit Provider Internal Medicine Medical Oncology | DX: Z79.01 Long term (current) use of anticoagulants (principal) | CPT/HCPCS: 85610; 99211 ==

== ENCOUNTER 2025-02-16 13:04 | Outpatient (AMB) | payer MEDICARE, SELFPAY ==
[2025-02-16 13:09] LABS: Prothrombin Time Whole Bld POC 33.5 sec (11.1-13.5); ~PT, ~INR - Anti Coag Clinic 2.8 (0.9-1.1)
--- NOTE | 2025-02-16 13:15 | MHC.OFFVISCO ---
Intake Intake Visit Reasons: Anticoagulation Allergies indomethacin (From INDOCIN) Allergy (Intermediate, Verified 02/16/25 13:05) RASH oxycodone (OXYCODONE) Allergy (Intermediate, Verified 02/16/25 13:05) VOMITING/RASH Sulfa (Sulfonamide Antibiotics) (SULFA (SULFONAMIDE ANTIBIOTICS)) Allergy (Intermediate, Verified 02/16/25 13:05) BLISTERS, sore on the end of his penis acetaminophen (Percocet) Adverse Reaction (Unknown, Verified 02/16/25 13:05) vomiting Nursing Note INR: 2.8 in therapeutic range Medications and supplements reviewed No changes in health, diet, medications, or supplements, Denies any signs and symptoms of bleeding or bruising or clotting. Bleeding, bruising, clotting discussed Nutritional guidance given - make sure to eat greens in a few days to keep INR in range, then eat a mix of fruits and vegetables Dose: 5MG X 1 DAY/ 2.5MG X 6 DAYS F/U INR: 1 MONTH Patient verbalizes understanding of instructions given Anti-Coag Initial Assessment Social Hx Patient Tobacco Use Status: Former Tobacco user Tobacco use type: Cigarette Alcohol intake frequency: former alcohol drinker Cardiovascular Hx: HTN, Arrhythmias and Varicose Veins Musculoskeletal Hx: Arthritis GI Hx: Other (GERD) Neurological Hx: Epilepsy/Seizures Cancer HX: No Psych. 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
--- OUTSIDE RECORDS SUMMARY | 2025-02-16 15:16 | XMS_ITS | Clinical Summary ---
Author Organization [employer] Address [address] [place] [address] Care Team Providers Care Assistant Infant Teacher Name Role Phone Unavailable Primary Care Provider [...]
== END 2025-02-16 13:17 | disposition home or self-care (01) ==
LOC: HO.ACS 13:04
PROVIDERS: PCP Internal Medicine Medical Oncology; Visit Provider Internal Medicine Medical Oncology
DX: Z79.01 Long term (current) use of anticoagulants (principal)

== ENCOUNTER → 2025-02-16 13:04 | Outpatient (BNVA) | payer MEDICARE, SELFPAY | PROVIDERS: PCP Internal Medicine Medical Oncology; Visit Provider Internal Medicine Medical Oncology | DX: I48.20 Chronic atrial fibrillation, unspecified (principal); Z79.01 Long term (current) use of anticoagulants; Z51.81 Encounter for therapeutic drug level monitoring | CPT/HCPCS: 85610; 99211 ==

== ENCOUNTER → 2025-03-16 12:40 | Outpatient (BNVA) | payer MEDICARE, SELFPAY | PROVIDERS: PCP Internal Medicine Medical Oncology; Visit Provider Internal Medicine Medical Oncology | DX: I48.20 Chronic atrial fibrillation, unspecified (principal); Z79.01 Long term (current) use of anticoagulants; Z51.81 Encounter for therapeutic drug level monitoring | CPT/HCPCS: 85610; 99211 ==

== ENCOUNTER 2025-03-24 09:09 | Outpatient (REF) | payer MEDICARE, SELFPAY ==
[2025-03-24 09:24] LABS: MANUAL DIFF FLAG NO
--- OUTSIDE RECORDS SUMMARY | 2025-03-24 09:55 | XMS_ITS | Clinical Summary ---
Author Organization [employer] Address [address] [facility] [facility] [facility] [address] [place] [address] Care Team Providers Care Planning Specialist Name Role Phone Unavailable Primary Care Provider Unavailabl e Encounters Date Type Department Care Team Description 03/03/2025 11:05 AM EDT Immunization [facility] [address] [place] [address] Encounter for vaccination; Encounter for immunization from Last 3 Months Immunizations Immunization Administration Dates Next Due Influenza, High Dose Seasonal, Preservative Free 03/03/2025 Influenza, Unspecified 02/09/2023 Pfizer Covid-19 Vaccine 12+ 03/03/2025, Pneumococcal Conjugate PCV 13 07/19/2015 Pneumococcal Polysaccharide [...] older (1 - 1-dose 75+ series) 2022 DTaP/Tdap/Td Vaccines (2 - Td or Tdap) 09/22/2030 09/22/2020 Pneumococcal Vaccine: 50+ Years Completed 11/18/2018, 05/03/2018, 04/14/2018, Additional history exists COVID-19 Vaccine Completed 03/03/2025, , 05/25/2021, Additional history exists Influenza Vaccine Completed 03/03/2025, , 02/09/2023, Additional history exists HIB Vaccines Aged Out No longer eligi [...]
[2025-03-24 10:11] LABS: Hematocrit 40.9 % (42.0-52.0); Hemoglobin 13.4 g/dl (14.0-18.0); Imm Gran Abs Auto 0.02 X10*3/uL (0.00-0.03); Imm Gran Pct Auto 0.4 % (0.0-0.4); Lymphocytes Absolute Auto 0.9 X10*3/uL (1.2-4.9); Mean Corpuscular HGB Conc 32.8 g/dl (31.0-36.0); Mean Corpuscular Hemoglobin 29.1 pg (27.0-33.0); Mean Corpuscular Volume 88.9 fL (80.0-98.0); NRBC Abs Auto 0.000 X10*3/uL (0.0-0.012); NRBC Pct Auto 0.0 /100WBC (0.0-0.2); Platelet Count 276 X10*3/uL (160-400); Red Blood Count 4.60 X10*6/uL (4.60-5.80); White Blood Count 5.5 X10*3/uL (4.8-10.8)
[2025-03-24 10:44] LABS: Alanine Aminotransferase 27 U/L (0-40); Albumin Level 3.9 g/dL (3.5-5.0); Alkaline Phosphatase 96 U/L (39-117); Anion Gap 10 (12-20); Aspartate Amino Transferase 28 U/L (5-37); Blood Urea Nitrogen 13 mg/dL (9-16); Calcium 9.1 mg/dL (8.4-10.2); Carbon Dioxide 27 mmol/L (22-29); Chloride 109 mmol/L (96-108); Cholesterol 143 mg/dL (<200); Estimated Glomerular Filt Rate > 60; HDL Cholesterol 40 mg/dL (>40); Potassium 4.4 mmol/L (3.3-5.1); Sodium 142 mmol/L (135-145); Total Protein 6.9 g/dL (6.5-8.0); Triglycerides 110 mg/dL (<150)
[2025-03-24 10:57] LABS: Prostate Specific Antigen 2.61 ng/mL (<0.05-4.0)
== END 2025-03-24 09:10 | disposition home or self-care (01) ==
LOC: HO.LAB 09:09
PROVIDERS: PCP Internal Medicine Medical Oncology; Visit Provider Internal Medicine Medical Oncology
DX: N40.1 Benign prostatic hyperplasia with lower urinary tract symptoms (principal); E78.5 Hyperlipidemia, unspecified; E66.3 Overweight; Z12.5 Encounter for screening for malignant neoplasm of prostate
CPT/HCPCS: 36415; 80053; 80061; 84153; 85025

== ENCOUNTER 2025-04-13 13:01 | Outpatient (AMB) | payer MEDICARE, SELFPAY ==
[2025-04-13 13:08] LABS: Prothrombin Time Whole Bld POC 24.3 sec (11.1-13.5); ~PT, ~INR - Anti Coag Clinic 2.0 (0.9-1.1)
--- NOTE | 2025-04-13 13:11 | MHC.OFFVISCO ---
Intake Intake Visit Reasons: Anticoagulation Allergies indomethacin (From INDOCIN) Allergy (Intermediate, Verified 04/13/25 13:03) RASH oxycodone (OXYCODONE) Allergy (Intermediate, Verified 04/13/25 13:03) VOMITING/RASH Sulfa (Sulfonamide Antibiotics) (SULFA (SULFONAMIDE ANTIBIOTICS)) Allergy (Intermediate, Verified 04/13/25 13:03) BLISTERS, sore on the end of his penis acetaminophen (Percocet) Adverse Reaction (Unknown, Verified 04/13/25 13:03) vomiting Medication List - Last Reconciled 04/13/25 by Mya Dillard, NELSON atorvastatin 1 tab PO DAILY cholecalciferol (vitamin D3) 25 mcg PO DAILY levetiracetam 1,000 mg PO BID 90 days omeprazole 1 cap PO DAILY paroxetine HCl 40 mg PO DAILY propranolol ER 1 cap PO DAILY pyridoxine (vitamin B6) mg PO pyridoxine (vitamin B6) 100 mg PO DAILY simethicone (Gas-X Extra Strength) 125 mg PO ONCE PRN tamsulosin 0.4 mg PO DAILY warfarin 2.5 mg See Protocol PO 2XW Nursing Note Pt to [facility] with use of a walker. Gait steady with walker. INR: 2.0 in therapeutic range of 2-3 Medications and supplements reviewed No changes in health, diet, medications, or supplements, Denies any signs and symptoms of bleeding or bruising or clotting. Bleeding, bruising, clotting discussed Nutritional guidance given to eat a serving of food that raises the INR. Food list reviewed with pt. Dose: 2.5mg X 6 days and 5mg X 1 day () F/U INR: 4 weeks Patient verbalizes understanding of instructions given Anti-Coag Initial Assessment Social Hx Patient Tobacco Use Status: Former Tobacco user Tobacco use type: Cigarette Alcohol intake frequency: former alcohol drinker Cardiovascular Hx: HTN, Arrhythmias and Varicose Veins Musculoskeletal Hx: Arthritis GI Hx: Other (GERD) Neurological Hx: Epilepsy/Seizures Cancer HX: No Psych. Illness/Depression: Yes (DEPRESSION) Questionnaires HAS-BLED Does the patient had uncontrolled Hypertension?: No Does the patient have renal disease?: No Does the patient have liver disease?: No Does the patient have a history of stroke?: No Has the patient had major bleeding or predisposition to bleeding?: Yes (nosebleed when starting warfarin) Does the patient have labile INRs?: No Is the patient over 65 years of age?: Yes Is the patient on medications that gives them a predisposition to bleeding?: Yes Does the patient use alcohol?: No HAS-BLED Score: 3 CHADSVASC Age: 75 or over Gender: Male Does the patient have a history of CHF?: No Does the patient have a history of Hypertension?: Yes Does the patient have a history of Stroke/TIA/Thromboembolism?: No Does the patient have a history of Vascular Disease (prior LA, PAD or aortic plaque)?: Yes Does the patient have a history of Diabetes?: No CHADS VACS Score: 4 Vee Prediction Score Rsk VTE Active Cancer: No Previous VTE, excluding superficial vein thrombosis: No Reduced mobility: No Already known Thrombophilic Condition: No With-in last month Trauma and/or Surgery: No Elderly 70 year or older: Yes Heart and/or Respiratory Failure: No Acute Myocardial infarction and/or Ischemic Stroke: No Acute Infection and/or Rheumatologic Disorder: No Obesity (BMI 30 or greater): No Ongoing Hormonal Treatment: No Score: 1 Vee Score less than 4; Low Risk of VTE Vee Score 4 or greater; High Risk of VTE Coding Level of Care Code Est Patient Level 1 Diagnoses Current use of anticoagulant therapy Z79.01 Assessment & Plan Assessment & Plan (1) Current use of anticoagulant therapy: Code(s): Z79.01 - halfway (current) use of anticoagulants Category: Medical
== END 2025-04-13 13:20 | disposition home or self-care (01) ==
LOC: HO.ACS 13:01
PROVIDERS: PCP Internal Medicine Medical Oncology; Visit Provider Internal Medicine Medical Oncology
DX: Z79.01 Long term (current) use of anticoagulants (principal)

== ENCOUNTER → 2025-04-13 13:01 | Outpatient (BNVA) | payer MEDICARE, SELFPAY | PROVIDERS: PCP Internal Medicine Medical Oncology; Visit Provider Internal Medicine Medical Oncology | DX: Z79.01 Long term (current) use of anticoagulants (principal) | CPT/HCPCS: 85610; 99211 ==

== ENCOUNTER 2025-05-11 13:03 | Outpatient (AMB) | payer MEDICARE, SELFPAY ==
[2025-05-11 13:09] LABS: Prothrombin Time Whole Bld POC 30.9 sec (11.1-13.5); ~PT, ~INR - Anti Coag Clinic 2.6 (0.9-1.1)
--- NOTE | 2025-05-11 13:10 | MHC.OFFVISCO ---
Intake Intake Visit Reasons: Anticoagulation Allergies indomethacin (From INDOCIN) Allergy (Intermediate, Verified 05/11/25 13:04) RASH oxycodone (OXYCODONE) Allergy (Intermediate, Verified 05/11/25 13:04) VOMITING/RASH Sulfa (Sulfonamide Antibiotics) (SULFA (SULFONAMIDE ANTIBIOTICS)) Allergy (Intermediate, Verified 05/11/25 13:04) BLISTERS, sore on the end of his penis acetaminophen (Percocet) Adverse Reaction (Unknown, Verified 05/11/25 13:04) vomiting Medication List - Last Reconciled 05/11/25 by Mya Dillard, NELSON atorvastatin 1 tab PO DAILY cholecalciferol (vitamin D3) 25 mcg PO DAILY levetiracetam 1,000 mg PO BID 90 days omeprazole 1 cap PO DAILY paroxetine HCl 40 mg PO DAILY propranolol ER 1 cap PO DAILY pyridoxine (vitamin B6) mg PO pyridoxine (vitamin B6) 100 mg PO DAILY simethicone (Gas-X Extra Strength) 125 mg PO ONCE PRN tamsulosin 0.4 mg PO DAILY warfarin 2.5 mg See Protocol PO 2XW Nursing Note INR: 2.6 in therapeutic range of 2-3 Medications and supplements reviewed No changes in health, diet, medications, or supplements, Denies any signs and symptoms of bleeding or bruising or clotting. Bleeding, bruising, clotting discussed Nutritional guidance given Dose: 2.5mgt X 6 days and 5mg X 1 day () F/U INR: 06/15/24 Patient verbalizes understanding of instructions given Anti-Coag Initial Assessment Social Hx Patient Tobacco Use Status: Former Tobacco user Tobacco use type: Cigarette Alcohol intake frequency: former alcohol drinker Cardiovascular Hx: HTN, Arrhythmias and Varicose Veins Musculoskeletal Hx: Arthritis GI Hx: Other (GERD) Neurological Hx: Epilepsy/Seizures Cancer HX: No Psych. Illness/Depression: Yes (DEPRESSION) Coding Level of Care Code Est Patient Level 1 Diagnoses Current use of anticoagulant therapy Z79.01 Assessment & Plan Assessment & Plan (1) Current use of anticoagulant therapy: Code(s): Z79.01 - prison (current) use of anticoagulants Category: Medical
--- OUTSIDE RECORDS SUMMARY | 2025-05-11 16:43 | XMS_ITS | Clinical Summary ---
Author Organization [employer] Address [address] [facility] [facility] [address] [place] [address] Care Team Providers Care Speaker Wirer Name Role Phone Unavailable Primary Care Provider Unavailabl e Encounters Date Type Department Care Team Description 03/03/2025 11:05 AM EDT Immunization [facility] [address] [place] [address] Encounter for vaccination; Encounter for immunization from [...] older (1 - 1-dose 75+ series) 2022 COVID-19 Vaccine ( - 2024- season) 2025 03/03/2025, 09/02/2024, 05/25/2021, Additional history exists DTaP/Tdap/Td Vaccines (2 - Td or Tdap) 09/22/2030 09/22/2020 Pneumococcal Vaccine: 50+ Years Completed 11/18/2018, 05/03/2018, 04/14/2018, Additional history exists Influenza Vaccine Completed 03/03/2025, [...]
== END 2025-05-11 13:17 | disposition home or self-care (01) ==
LOC: HO.ACS 13:03
PROVIDERS: PCP Internal Medicine Medical Oncology; Visit Provider Internal Medicine Medical Oncology
DX: Z79.01 Long term (current) use of anticoagulants (principal)

== ENCOUNTER → 2025-05-11 13:03 | Outpatient (BNVA) | payer MEDICARE, SELFPAY | PROVIDERS: PCP Internal Medicine Medical Oncology; Visit Provider Internal Medicine Medical Oncology | DX: I48.20 Chronic atrial fibrillation, unspecified (principal); Z51.81 Encounter for therapeutic drug level monitoring; Z79.01 Long term (current) use of anticoagulants | CPT/HCPCS: 85610; 99211 ==